=== PATIENT | female | born 1955 | race African-American/Black ===

== ENCOUNTER 2016-09-05 14:10 | Inpatient (IN) | payer MEDICARE, OTHER ==
[2016-09-05] VITALS (22 sets, daily range): BP systolic 77–122; BP diastolic 51–87; PULSE 79–128; RESP 14–21
[~2016-09-05] VITALS: Ht 167.6 cm; Wt 98.3 kg
[2016-09-05] MEDS ORDERED: ONDANSETRON 4 MG INJ IV STA ×2 (14:19→15:24)
[2016-09-05] MEDS ORDERED: SOD CHLORIDE 0.9% 1,000 ML IV ONE ×2 (14:30)
[2016-09-05 14:41] LABS: ADD SCAN DIFF NO
[2016-09-05 14:43] LABS: ABNORMAL IP MESSAGE 1; HEMATOCRIT 23.6 % (37.0-47.0); HEMOGLOBIN 7.6 g/dl (12.0-16.0); MEAN CORPUSCULAR HEMOGLOBIN 28.3 pg (29.0-33.0); MEAN CORPUSCULAR HGB CONC 32.2 g/dl (32.0-37.0); MEAN CORPUSCULAR VOLUME 87.7 fl (82.0-101.0); MEAN PLATELET VOLUME 11.9 fl (7.4-10.4); PLATELET COUNT 244 10^3/UL (140-415); RED BLOOD COUNT 2.69 10^6/ul (4.20-5.40); RED CELL DISTRIBUTION WIDTH 20.8 % (11.5-14.5); WHITE BLOOD COUNT 9.6 10^3/ul (4.8-10.8)
[2016-09-05 14:56] LABS: ALBUMIN 1.6 g/dl (3.3-4.9)
[2016-09-05 14:57] LABS: INR 1.16; PROTIME 14.8 Sec (12.2-14.2); PT RATIO 1.2
[2016-09-05 14:59] LABS: BILIRUBIN,INDIRECT 0.1 mg/dl (0-1.1); BILIRUBIN,TOTAL 0.1 mg/dl (0.2-1.3); CREATININE 1.45 mg/dl (0.44-1.00)
[2016-09-05 15:00] LABS: ALBUMIN/GLOBULIN RATIO 0.64; CALCIUM 7.2 mg/dl (8.4-10.2); TOTAL PROTEIN 4.1 g/dl (6.1-8.1)
[2016-09-05 15:11] LABS: TROPONIN-I 0.021 ng/ml (0.00-0.12)
--- NOTE | 2016-09-05 15:11 | RADRPT ---
PROCEDURE: XR Chest. CLINICAL INDICATION: Possible sepsis. TECHNIQUE: Single frontal view of the chest was obtained. COMPARISON: None FINDINGS: The soft tissues are normal. There are degenerative osteophytes in the thoracic spine. There is a Port-A-Cath device over the right chest wall with the catheter tip in the superior vena cava. No pn eumothorax is identified. The heart, cardiomediastinal silhouette and hilar structures are normal. The pulmonary vasculature is normal. There is a left-sided aorta. Lungs are clear but there is a po or inspiration. The costophrenic angles are normal. IMPRESSION: 1. There is no evidence of active cardiopulmonary disease. 2. A Port-A-Cath is identified projecting over the right chest wall. RPTAT:AAJJ Physician Deshawn Date Time Electronically viewed and signed by Nahum Knott Physician on 09/05/2016 15:10 OKSANA/
[2016-09-05 15:17] LABS: POTASSIUM 2.1 mmol/L (3.5-5.1)
[2016-09-05] MEDS ORDERED: METOCLOPRAMIDE 10 MG INJ IV ONE (15:30)
[2016-09-05] MEDS ORDERED: HYDR-902 PO (15:55)
[2016-09-05] MEDS ORDERED: DOCU-144 PO (15:56)
[2016-09-05] MEDS ORDERED: CYAN25009 PO (15:57)
[2016-09-05 15:58] LABS: LYMPHOCYTES # 0.3 10^3/ul (0.8-2.9); MYELOCYTES # 0.1; NEUTROPHIL # 7.4 10^3/ul (1.6-7.5)
[2016-09-05] MEDS ORDERED: NORepinephrine 8MG/250 ML (PMX 250 ML IV SCH ×2 (16:00→19:00)
[2016-09-05] MEDS ORDERED: PIPER-TAZO 3.375 GM IV (PMX) 100 ML IVPB ONE (16:00)
[2016-09-05] MEDS ORDERED: CHOL500010 PO (16:00)
[2016-09-05 16:02] LABS: BURR CELLS 1+; HYPOCHROMASIA 1+
[2016-09-05] MEDS: POTASSIUM CHLORIDE 50 ML IVPB SCH ×5 (16:12→23:44)
[2016-09-05] MEDS ORDERED: ALBUTEROL/IPRATROPIUM (NEB) 3 ML AMP HHN PRN (18:30)
[2016-09-05] MEDS ORDERED: MAGNESIUM HYDROXIDE 30ML CUP PO PRN (18:30)
[2016-09-05] MEDS ORDERED: NACL 0.9% 3 ML SYG IV SCH (18:30)
[2016-09-05] MEDS ORDERED: hydrALAzine 20 MG INJ IV PRN (18:30)
[2016-09-05] MEDS ORDERED: NITROGLYCERIN (SL) 0.4 MG TAB SL PRN (18:30)
[2016-09-05] MEDS ORDERED: NA PHOSPHATE/BIPHOS 133 ML ENEMA PR PRN (18:30)
[2016-09-05] MEDS ORDERED: DOCUSATE SODIUM 100 MG CAP PO PRN (18:30)
[2016-09-05] MEDS ORDERED: ONDANSETRON 4 MG INJ IV PRN (18:30)
[2016-09-05] MEDS ORDERED: VANCOMYCIN IV PER PHARMACY XX SCH (18:30)
[2016-09-05] MEDS ORDERED: HYDROCODONE/APAP (5/325) TAB PO PRN (18:30)
[2016-09-05] MEDS ORDERED: ACETAMINOPHEN 325 MG TAB PO PRN (18:30)
--- NOTE | 2016-09-05 18:36 | ERA ---
ER Documentation Chief Complaint Date/Time DATE: 09/05/16 TIME: 18:15 Chief Complaint Hypotension HPI 61-year-old female sent to the emergency room for generalized weakness, tiredness. Noted to be hypotensive by paramedics. She has had diarrhea nausea vomiting for the last several days. No blood in her diarrhea. She has a history of cervical cancer with metastasis for which she has had chemotherapy but not for several months, she most recently had radiation last month. Patient states that she currently just feels very weak and lightheaded. Denies any specific pain. ROS All systems reviewed and are negative except as per history of present illness. Medications Home Meds Reported Medications Cholecalciferol (Vitamin D3) 5,000 Unit Tablet, 5000 UNIT PO DAILY, TAB 09/05/16 Cyanocobalamin (Vitamin B-12) (Vitamin B12) 2,500 Mcg Tablet, 2500 MCG PO DAILY , TAB 09/05/16 Docusate Sodium* (Colace*) 100 Mg Capsule, 100 MG PO BID, #60 CAP 09/05/16 Hydrocodone/Acetaminophen ([place] 10-325 Tablet) 1 Each Tablet, 1 EACH PO Q6H Y for PAIN, TAB 09/05/16 Allergies Allergies: Coded Allergies: levofloxacin (Verified Allergy, Intermediate, face red and itching, ) PMhx/Soc History of Surgery: Yes (Tumor removal) Anesthesia Reaction: No Hx Neurological Disorder: No Hx Respiratory Disorders: No Hx Cardiac Disorders: No Hx Psychiatric Problems: No Hx Miscellaneous Medical Probl: Yes (Cervical Cancer) Hx Alcohol Use: No Hx Substance Use: No Hx Tobacco Use: No Smoking Status: Never smoker Physical Exam Vitals Vital Signs Date Time Temp Pulse Resp B/P Pulse Ox O2 Delivery O2 Flow Rate FiO2 09/05/16 17:30 92/80 09/05/16 17:00 77/47 09/05/16 16:30 77/50 09/05/16 16:14 98/48 09/05/16 16:00 73/50 09/05/16 15:30 81/59 09/05/16 15:23 106 13 90/63 100 Room Air 09/05/16 15:20 90/63 09/05/16 15:10 87/51 09/05/16 15:00 94/61 09/05/16 14:55 90/49 09/05/16 14:50 98/48 09/05/16 14:50 97.4 103 18 101/55 100 09/05/16 14:45 101/60 Physical Exam Const: [] Moderate distress, ill-appearing, thin Head: Atraumatic Eyes: Normal Conjunctiva ENT: Normal External Ears, Nose and Mouth. Neck: Full range of motion..~ No meningismus. Resp: Clear to auscultation bilaterally, mild tachypnea Cardio: Regular tachycardia no murmurs Abd: Soft, non tender, non distended. Normal bowel sounds Skin: No petechiae or rashes Back: No midline or flank tenderness Ext: No cyanosis, or edema, distal pulses intact, 5 out of 5 strength all extremities, no focal weakness Neur: Awake and alert and oriented 3, cranial nerves II through XII intact, cerebellar finger to nose intact Psych: Normal Mood and Affect Result Diagram: 09/05/16 1425 09/05/16 1425 Results 24 hrs Laboratory Tests Test 09/05/16 14:25 09/05/16 17:15 White Blood Count 9.610^3/ul Red Blood Count 2.6910^6/ul Hemoglobin 7.6g/dl Hematocrit 23.6% Mean Corpuscular Volume 87.7fl Mean Corpuscular Hemoglobin 28.3pg Mean Corpuscular Hemoglobin Concent 32.2g/dl Red Cell Distribution Width 20.8% Platelet Count 06231^3/UL Mean Platelet Volume 11.9fl Neutrophils % 77.0% Band Neutrophils % 19.0% Lymphocytes % 3.0% Eosinophils % % Myelocytes % 1.0% Nucleated Red Blood Cells % 2.0/100WBC Neutrophils # 7.410^3/ul Lymphocytes # 0.310^3/ul Eosinophils # 10^3/ul Myelocytes # 0.1 Hypochromasia 1+ Prothrombin Time 14.8Sec Prothrombin Time Ratio 1.2 INR International Normalized Ratio 1.16 Activated Partial Thromboplast Time 35.0Sec Sodium Level 134mmol/L Potassium Level 2.1mmol/L Chloride Level 101mmol/L Carbon Dioxide Level 19mmol/L Anion Gap 16 Blood Urea Nitrogen 61mg/dl Creatinine 1.45mg/dl Glucose Level 121mg/dl Lactic Acid Level 5.2mmol/L 5.7mmol/L Calcium Level 7.2mg/dl Total Bilirubin 0.1mg/dl Direct Bilirubin 0.00mg/dl Indirect Bilirubin 0.1mg/dl Aspartate Amino Transf (AST/SGOT) 25IU/L Alanine Aminotransferase (ALT/SGPT) 61IU/L Alkaline Phosphatase 164IU/L Troponin I 0.021ng/ml Total Protein 4.1g/dl Albumin 1.6g/dl Globulin 2.50g/dl Albumin/Globulin Ratio 0.64 Current Medications Medications (Trade) Dose Ordered Sig/Bev Route PRN Reason Start Time Stop Time Status Last Admin Dose Admin Sodium Chloride 1,000 ml @ 1,000 mls/hr Q1H ONCE IV 09/05/16 14:30 09/05/16 15:29 DC 09/05/16 14:51 Sodium Chloride (NS) 1,000 ml @ 1,000 mls/hr Q1H ONCE IV 09/05/16 14:30 09/05/16 15:29 DC 09/05/16 14:55 Ondansetron HCl 4 mg 4 mg ONCE STAT IV 09/05/16 14:19 09/05/16 14:21 DC 09/05/16 15:26 Potassium Chloride (KCl 10 MEQ/50 ML SW) 50 ml @ 50 mls/hr Q1H IVPB 09/05/16 16:00 09/05/16 18:59 09/05/16 17:53 Ondansetron HCl (Zofran Inj) 4 mg ONCE STAT IV 09/05/16 15:24 09/05/16 15:44 DC 09/05/16 15:47 Metoclopramide HCl 10 mg 10 mg ONCE ONCE IV 09/05/16 15:30 09/05/16 15:44 DC 09/05/16 15:49 Piperacillin Sod/ Tazobactam Sod 100 ml @ 200 mls/hr ONCE ONCE IVPB 09/05/16 16:00 09/05/16 16:29 DC 09/05/16 15:47 Norepinephrine (Levophed) 250 ml @ 1.875 mls/ hr TITRATE IV 09/05/16 16:00 09/05/16 16:41 IV Flush (NS 3 ml) 3 ml PER PROTOCOL IV 09/05/16 18:30 UNV Ondansetron HCl (Zofran Inj) 4 mg Q6H PRN IV NAUSEA AND/OR VOMITING 09/05/16 18:30 UNV Acetaminophen (Tylenol Tab) 650 mg Q6H PRN PO PAIN LEVEL 1-3 OR FEVER 09/05/16 18:30 UNV Acetaminophen/ Hydrocodone Bitart ([place] (5/325)) 1 tab Q6H PRN PO MODERATE PAIN LEVEL 4-6 09/05/16 18:30 UNV Morphine Sulfate (morphine) 2 mg Q4H PRN IV SEVERE PAIN LEVEL 7-10 09/05/16 18:30 UNV Docusate Sodium (Colace) 100 mg Q12H PRN PO CONSTIPATION 09/05/16 18:30 UNV Magnesium Hydroxide (Milk Of Mag) 30 ml DAILY PRN PO CONSTIPATION 09/05/16 18:30 UNV Sodium Biphosphate/ Sodium Phosphate (Fleet Enema) 133 ml DAILY PRN CA CONSTIPATION 09/05/16 18:30 UNV Lorazepam 0.5 mg 0.5 mg Q6H PRN IV ANXIETY 09/05/16 18:30 UNV Sodium Chloride (NS) 1,000 ml @ 100 mls/hr Q10H IV 09/05/16 18:01 UNV Albuterol/ Ipratropium 3 ml 3 ml Q4H RESP THERAPY PRN HHN SHORTNESS OF BREATH 09/05/16 18:30 UNV Piperacillin Sod/ Tazobactam Sod (Zosyn 3.375gm/ 100 ml (Pmx)) 100 ml @ 200 mls/hr Q6 IVPB 09/06/16 00:00 UNV Vancomycin HCl (Vanco Iv Per Pharmacy) VANCOMYCIN PER PHARMACY NOTE XX 09/05/16 18:30 UNV Hydralazine HCl (Apresoline) 10 mg Q6H PRN IV ELEVATED BLOOD PRESSURE 09/05/16 18:30 UNV Nitroglycerin (Nitroglycerin (Sl Tab) 0.4 Mg) 1 tab Q5M PRN SL ANGINA 09/05/16 18:30 UNV Insulin Aspart (Novolog Insulin Pen) NOVOLOG *MILD* ALGORI... Q4 SC 09/05/16 21:00 UNV Miscellaneous Information (* Miscellaneous Pharmacy Order) HYPOGLYCEMIA PROTOCOL w... ONCE ONCE XX 09/05/16 18:30 09/05/16 18:31 UNV Miscellaneous Information (* Miscellaneous Pharmacy Order) Discontinue Glyburide, Glipizide,... ONCE ONCE XX 09/05/16 18:30 09/05/16 18:31 UNV Miscellaneous Information Discontinue all previ... ONCE ONCE XX 09/05/16 18:30 09/05/16 18:31 UNV Potassium Chloride (KCl 10 MEQ/50 ML SW) 50 ml @ 50 mls/hr K PROTOCOL PRN IVPB PENDING LAB VALUE 09/05/16 18:30 UNV Miscellaneous Information 2,500 mcg DAILY PO 09/06/16 09:00 UNV Procedures/MDM Severe dehydration and volume depletion with sepsis. Source of a bacterial sepsis is not currently clear as patient may have sepsis secondary to her viral intestinal infection. Was hypotensive. Initially given 2 L normal saline which improved her clinical condition as well as her blood pressure temporarily. Blood pressure then began dropping again. She was started on levo fed. Patient's daughter arrived. She brought labs with her and the patient's hemoglobin was 9.3 a month and a half ago. She has received transfusions before has no history of GI bleeding. Patient also had nausea and was given 8 mg of Zofran which helped with the nausea. Her potassium is very low and IV potassium repletion was begun in the emergency room. EKG was low voltage but showed no signs of U waves or significantly prolonged QT. Did give her an additional liter of fluid for increasing lactic acid. I ordered 2 units of blood to be transfusion which will likely help with the blood pressure. I spoke with Dr. Briseno who will be admitting the patient to the ICU. EKG interpretation: Sinus tachycardia rate of 107, low voltage, left axis deviation, no ST or T-wave changes concerning for acute ischemia, mildly prolonged QT of 467 clinical research monitor interpretation: Sinus tachycardia with occasional normal sinus rhythm. No other arrhythmias Chest x-ray interpretation: I see no acute process, no infiltrate, no pulmonary edema, no fractures, no pneumothorax Perfusion assessment for septic shock: Time 1611 BP 98/48, HR 102 RR 20 Temp 97.4 F Oxygen sat 97% Skin: Pale, no mottling Pulses: Distal pulses palpable Lungs: Clear lungs with no rails Cardiac: Mild tachycardia without murmurs Critical care time 48 minutes excluding billable procedures: This includes management of sepsis with very low blood pressure, careful fluid administration , blood products administration, early antibiotic administration, multiple visits to bedside to reassess status, discussion with patient, family, admitting doctor, chart review. Ultrasound-guided IV insertion: Indication: Staff unable to obtain IV access and hypotensive patient requiring fluid resuscitation: Left upper arm was cleaned with alcohol. Ultrasound guidance was used easily introduced an 18- gauge extended angiocatheter in the left basilic vein. Good blood flow, flushed easily. Patient tolerated procedure well no complications. Images saved in patient chart. Departure Diagnosis: Primary Impression: Septic shock Additional Impressions: Dehydration Renal insufficiency Symptomatic anemia Nausea vomiting and diarrhea Hypokalemia Condition: Critical MANI PERRY DO September 05, 2016 18:28
[2016-09-05] MEDS ORDERED: DEXTROSE 50% 50 ML SYRINGE IV PRN ×2 (19:00)
[2016-09-05] MEDS ORDERED: GLUCOSE GEL 15 GRAM TUBE PO PRN ×2 (19:00)
[2016-09-05] MEDS ORDERED: GLUCOSE GEL 15 GRAM TUBE BUCCAL PRN (19:00)
[2016-09-05] MEDS ORDERED: GLUCAGON 1 MG INJ IM PRN (19:00)
[2016-09-05] MEDS: SOD CHLORIDE 0.9% 1,000 ML IV SCH (19:03)
[2016-09-05] MEDS ORDERED: VANCOMYCIN 1.25 GM in SOD CHLORIDE 0.9% 250 ML IVPB ONE (20:00)
--- NOTE | 2016-09-05 20:24 | HP ---
DATE OF ADMISSION: 09/05/2016 CHIEF COMPLAINT: Weakness and low blood pressure. HISTORY OF PRESENT ILLNESS: A 61-year-old female, past medical history of cervical cancer with dist ant metastasis, last radiation about 1 month ago apparently at [facility], who has been having wea kness symptoms that began this morning. The family became concerned and called EMS, and the EMS not ed that the patient was hypotensive as well. She has also been having some vomiting symptoms, some mild nausea symptoms, nonbilious, nonbloody, and also apparently some diarrhea. The patient does co mplain of some lightheadedness but denies any chest pain or shortness of breath or abdominal pain. No fevers or chills. No dysuria. When she came in today, she was found with elevated lactic acid l evels of 5.2. She was severely hypokalemic. Her potassium was 2.1, and she had a hemoglobin of 7.6 as well and was ordered for 2 units of PRBC transfusion. Also received IV fluids and potassium in the ER. The patient says that she had nephrostomy tubes placed in [place] in 2013. PAST MEDICAL HISTORY: Stated above. ALLERGIES: LEVAQUIN. HOME MEDICINES: 1. [place] 10/325 q.6 p.r.n. 2. Colace 100 mg b.i.d. 3. Vitamin D3 5000 units daily. 4. Vitamin B12 2500 mcg daily. PAST SURGICAL HISTORY: Again, she has had bilateral nephrostomy tubes placed, apparently in 2013. Apparently she has also had some kind of surgery for tumor removal in the past, although that is non specific. SOCIAL HISTORY: Negative for smoking, drinking, IV drug abuse. FAMILY HISTORY: Unknown at this time. VITAL SIGNS: T-max 97.4, pulse 103 to 106, respirations 13 to 18, blood pressure is 77 to 101 systo lic over 47 to 55 diastolic, saturating 100% on room air. PHYSICAL EXAMINATION: GENERAL: The patient is lying in bed, quite lethargic, able to answer questions and occasionally al ert at times. HEENT: Pupils are equal, round, react to light. Extraocular muscles intact. NECK: Supple. No thyromegaly. LUNGS: Clear to auscultation bilaterally. CARDIOVASCULAR: S1 and S2 heard. Tachycardic heart rate. No rubs or gallops. ABDOMEN: Soft, nontender, nondistended. Normal bowel sounds. No rebound or guarding. There are b ilateral nephrostomy tubes in the flanks. MUSCULOSKELETAL: No lower extremity edema bilaterally. NEUROLOGIC: No focal deficits. LABORATORIES: WBC 9.5, hemoglobin 7.6, hematocrit 23.6, platelets 244. Sodium 134, potassium 2.1, chloride 101, CO2 19, BUN 61, creatinine 1.45, glucose 121. IMAGING: She had chest x-ray performed today, shows no evidence of any active cardiopulmonary disea se. There is Port-A-Cath identified projecting over the right chest wall. ASSESSMENT AND PLAN: A 61-year-old female with prior history of cervical cancer with metastasis, la st radiation 1 month ago, who presents with weakness and anemia, severe hypokalemia and lactic acido sis. 1. Signs of sepsis given the lactic acid and the hypotension. Will admit the patient to ICU given the severity of her illness. She may require pressor support and also aggressive IV fluid rehydrati on. Will replete her low potassium levels. Will get hematology/oncology consult as well. Trend th e lactic acid as well. 2. Anemia. Unclear source. Will check occult stool test and get a GI consult as well. Could be s econdary to GI blood losses, although there are no signs of any upper or lower GI bleeding. Also co uld be related to the cancer as well. Also check TSH, A1c and lipid panel. 3. History of bilateral nephrostomy tubes with some mild renal insufficiency. Continue to monitor for now. Aggressive IV fluid rehydration. If there are any abnormalities, may need to get urology consult. Nephrostomy tube and bags appear to be draining well. 4. Gastrointestinal prophylaxis. She will be on H2 chance. 5. Deep venous thrombosis prophylaxis. Will put her on SCDs. 6. Consider PT and OT consult as well. Dictated By: ONEIDA MCALLISTER Conf#: [id number] DID#: [id number]
[2016-09-05 20:56] LABS: CALCIUM 6.7 mg/dl (8.4-10.2); CREATININE 1.24 mg/dl (0.44-1.00); MAGNESIUM 1.9 mg/dl (1.7-2.5)
[2016-09-05] MEDS: INSULIN ASPART [NOVOLOG] 3 ML PEN SC SCH (21:00)
[2016-09-05 21:08] LABS: POTASSIUM 2.6 mmol/L (3.5-5.1)
[2016-09-05] MEDS: FAMOTIDINE 20 MG INJ IV SCH (21:40)
[2016-09-05] MEDS: PIPER-TAZO 2.25 GM (PMX) 50 ML IVPB SCH (23:43)
[2016-09-06] VITALS (93 sets, daily range): BP systolic 62–127; BP diastolic 50–94; PULSE 76–154; RESP 11–34
[2016-09-06] MEDS: INSULIN ASPART [NOVOLOG] 3 ML PEN SC SCH ×6 (01:00→20:48)
[2016-09-06] MEDS: POTASSIUM CHLORIDE 50 ML IVPB SCH (02:00)
[2016-09-06] MEDS: SOD CHLORIDE 0.9% 1,000 ML IV SCH ×2 (05:00→09:27)
[2016-09-06 06:08] LABS: ADD SCAN DIFF NO
[2016-09-06] MEDS: PIPER-TAZO 2.25 GM (PMX) 50 ML IVPB SCH ×4 (06:13→23:38)
[2016-09-06 06:44] LABS: POTASSIUM 4.1 mmol/L (3.5-5.1)
[2016-09-06 06:47] LABS: CREATININE 1.1 mg/dl (0.44-1.00)
[2016-09-06 06:48] LABS: CALCIUM 7.1 mg/dl (8.4-10.2); MAGNESIUM 1.8 mg/dl (1.7-2.5); PHOSPHORUS 3.3 mg/dl (2.5-4.9)
[2016-09-06 07:37] LABS: THYROID STIMULATING HORMONE 7.92 MIU/L (0.465-4.680)
[2016-09-06 08:56] LABS: ABNORMAL IP MESSAGE 1; MEAN CORPUSCULAR HEMOGLOBIN 28.4 pg (29.0-33.0); MEAN CORPUSCULAR HGB CONC 32.4 g/dl (32.0-37.0); MEAN CORPUSCULAR VOLUME 87.9 fl (82.0-101.0); MEAN PLATELET VOLUME 12.1 fl (7.4-10.4); PLATELET COUNT 231 10^3/UL (140-415); RED BLOOD COUNT 3.87 10^6/ul (4.20-5.40); RED CELL DISTRIBUTION WIDTH 18.9 % (11.5-14.5); WHITE BLOOD COUNT 13.8 10^3/ul (4.8-10.8)
--- NOTE | 2016-09-06 09:36 | CONS ---
Date/Time of Note Date/Time of Note DATE: 09/06/16 TIME: 09:29 Assessment/Plan Assessment/Plan Additional Assessment/Plan Assessment * Anemia controlled * Diarrhea R/O infectious vs inflammatory vs radiation induced * Sepsis * History of cervical cancer * S/P nephrostomy tube bilateral Plan * continue present management * colonoscopy risk and benefit explained to patient and relative agreed with planned procedure * stool for occult blood Consultation Date/Type/Reason Admit Date/Time September 05, 2016 at 16:23 Date of Consultation: September 06, 2016 Type of Consultation: Gastroenterology Reason for Consultation Anemia/diarrhea Referring Provider: ONEIDA COLEMAN Hx of Present Illness 61 year old female with past medical history cervical cancer with metastasis who underwent radiation at [facility] last month came to emergency room with chief complaint of body malaise,and weakness.Family called EMS ,was noted to be hypotensive.She claims to have n diarrhea for 1 month.Diarrhea was occurring daily described as watery stool,no blood,nor mucus with associated occasional vomiting described as non bilious with no blood.She denies any history of travel ,abdominal pain ,hematemesis,hematochezia nor fever.She claims that been feeling weak ,noted to be hypotensive by EMS . Emergency room course,patient was hypotensive a bolus of NS was given ,started omn pressors.Initial hemoglobin 7.7 transfused 2 units of PRBC. presently ,patient no episode of diarrhea ,abdominal pain but patient is weak and hypotensive on pressors Past Medical History Medical History: other (cervical cancer,bowel obstruction,brain tumor) Past Surgical History Past Surgical Hx: other (neprhostomy tube bilateral,brain surgery) Family History Significant Family History: no pertinent family hx Social History Alcohol Use: rarely Smoking Status: Never smoker Exam/Review of Systems Vital Signs Vitals Vital Signs Date Time Temp Pulse Resp B/P Pulse Ox O2 Delivery O2 Flow Rate FiO2 09/06/16 08:00 97 09/06/16 06:00 19 85/71 09/06/16 05:45 100 09/06/16 05:00 Room Air 09/06/16 04:15 97.2 Intake and Output 09/05/16 09/05/16 09/06/16 15:00 23:00 07:00 Intake Total 687.82 ml 1378.95 ml Output Total 275 ml Balance 687.82 ml 1103.95 ml Exam Constitutional: alert, frail Head: atraumatic, normocephalic Eyes: nl conjunctiva, nl sclera Neck: non-tender, supple Respiratory: clear to auscultation, diminished breath sounds, normal air movement Cardiovascular: nl pulses, regular rate and rhythm Gastrointestinal: bowel sounds, non-tender, soft, No rebound or guarding Musculoskeletal: nl extremities to inspection, nl gait and stance Extremities: normal pulses Neurological: nl speech, nl strength Results Result Diagram: 09/06/16 0550 09/06/16 0550 Results 24 hrs Laboratory Tests Test 09/05/16 14:25 09/05/16 17:15 09/05/16 18:50 09/05/16 20:15 White Blood Count 9.6 Red Blood Count 2.69 L Hemoglobin 7.6 L Hematocrit 23.6 L Mean Corpuscular Volume 87.7 Mean Corpuscular Hemoglobin 28.3 L Mean Corpuscular Hemoglobin Concent 32.2 Red Cell Distribution Width 20.8 H Platelet Count 244 Mean Platelet Volume 11.9 H Neutrophils % 77.0 Band Neutrophils % 19.0 H Lymphocytes % 3.0 L Eosinophils % Myelocytes % 1.0 H Nucleated Red Blood Cells % 2.0 H Neutrophils # 7.4 Lymphocytes # 0.3 L Eosinophils # Myelocytes # 0.1 Hypochromasia 1+ Prothrombin Time 14.8 H Prothrombin Time Ratio 1.2 INR International Normalized Ratio 1.16 Activated Partial Thromboplast Time 35.0 Sodium Level 134 L 134 L Potassium Level 2.1 *L 2.6 *L Chloride Level 101 107 Carbon Dioxide Level 19 L 23 Anion Gap 16 7 #L Blood Urea Nitrogen 61 H 56 H Creatinine 1.45 H 1.24 H Glucose Level 121 92 Lactic Acid Level 5.2 *H 5.7 *H 2.6 H Calcium Level 7.2 L 6.7 L Total Bilirubin 0.1 L Direct Bilirubin 0.00 Indirect Bilirubin 0.1 Aspartate Amino Transf (AST/SGOT) 25 Alanine Aminotransferase (ALT/SGPT) 61 Alkaline Phosphatase 164 H Troponin I 0.021 Total Protein 4.1 L Albumin 1.6 L Globulin 2.50 Albumin/Globulin Ratio 0.64 Phosphorus Level 3.4 Magnesium Level 1.9 Free Thyroxine 1.48 Test 09/05/16 22:02 09/06/16 00:41 09/06/16 05:50 09/06/16 06:10 Bedside Glucose 110 108 Lactic Acid Level 1.5 2.1 White Blood Count 13.8 #H Red Blood Count 3.87 #L Hemoglobin 11.0 #L Hematocrit 34.0 #L Mean Corpuscular Volume 87.9 Mean Corpuscular Hemoglobin 28.4 L Mean Corpuscular Hemoglobin Concent 32.4 Red Cell Distribution Width 18.9 H Platelet Count 231 Mean Platelet Volume 12.1 H Neutrophils % Eosinophils % Neutrophils # Eosinophils # Sodium Level 140 Potassium Level 4.1 Chloride Level 110 Carbon Dioxide Level 17 L Anion Gap 17 #H Blood Urea Nitrogen 54 H Creatinine 1.10 H Glucose Level 96 Calcium Level 7.1 L Phosphorus Level 3.3 Magnesium Level 1.8 Triglycerides Level 316 H Cholesterol Level 70 L LDL Cholesterol, Calculated HDL Cholesterol 35 Cholesterol/HDL Ratio 2.0 Thyroid Stimulating Hormone (TSH) 7.920 H Test 09/06/16 09:09 Bedside Glucose 123 Medications Medications Current Medications Ondansetron HCl (Zofran Inj) 4 mg Q6H PRN IV NAUSEA AND/OR VOMITING; Start at 18:30 Acetaminophen (Tylenol Tab) 650 mg Q6H PRN PO PAIN LEVEL 1-3 OR FEVER; Start at 18:30 Acetaminophen/ Hydrocodone Bitart ([place] (5/325)) 1 tab Q6H PRN PO MODERATE PAIN LEVEL 4-6; Start 09/05/16 at 18:30 Morphine Sulfate (morphine) 2 mg Q4H PRN IV SEVERE PAIN LEVEL 7-10; Start 09/05 at 18:30 Docusate Sodium (Colace) 100 mg Q12H PRN PO CONSTIPATION; Start 09/05/16 at 18: 30 Magnesium Hydroxide (Milk Of Mag) 30 ml DAILY PRN PO CONSTIPATION; Start at 18:30 Sodium Biphosphate/ Sodium Phosphate (Fleet Enema) 133 ml DAILY PRN SC CONSTIPATION; Start 09/05/16 at 18:30 Lorazepam 0.5 mg 0.5 mg Q6H PRN IV ANXIETY; Start 09/05/16 at 18:30 Sodium Chloride 1,000 ml @ 100 mls/hr Q10H IV Last administered on 09/06/16t 09:27; Admin Dose 100 MLS/HR; Start 09/05/16 at 19:00 Piperacillin Sod/ Tazobactam Sod (Zosyn 2.25gm/ 50ml (Pmx)) 50 ml @ 100 mls/hr Q6 IVPB Last administered on 09/06/16 06:13; Admin Dose 100 MLS/HR; Start at 00:00 Vancomycin HCl (Vanco Iv Per Pharmacy) VANCOMYCIN PER PHARMACY NOTE XX ; Start 09/05/16 at 18:30 Hydralazine HCl (Apresoline) 10 mg Q6H PRN IV ELEVATED BLOOD PRESSURE; Start at 18:30 Nitroglycerin (Nitroglycerin (Sl Tab) 0.4 Mg) 1 tab Q5M PRN SL ANGINA; Start at 18:30 Insulin Aspart (Novolog Insulin Pen) NOVOLOG *MILD* ALGORI... Q4 SC ; Start at 21:00 Cyanocobalamin (Vitamin B12) 2,500 mcg DAILY PO ; Start 09/06/16 at 09:00 Miscellaneous Information 1 ea NOTE XX ; Start 09/05/16 at 19:00 Glucose (Glutose) 15 gm Q15M PRN PO DECREASED GLUCOSE; Start 09/05/16 at 19:00 Glucose (Glutose) 22.5 gm Q15M PRN PO DECREASED GLUCOSE; Start 09/05/16 at 19: 00 Dextrose (D50w Syringe) 25 ml Q15M PRN IV DECREASED GLUCOSE; Start 09/05/16 at 19:00 Dextrose (D50w Syringe) 50 ml Q15M PRN IV DECREASED GLUCOSE; Start 09/05/16 at 19:00 Glucagon (Glucagen) 1 mg Q15M PRN IM DECREASED GLUCOSE; Start 09/05/16 at 19:00 Glucose (Glutose) 15 gm Q15M PRN BUCCAL DECREASED GLUCOSE; Start 09/05/16 at 19 :00 Famotidine 20 mg 20 mg DAILY IV Last administered on 09/05/16 21:40; Admin Dose 20 MG; Start 09/05/16 at 19:00 Norepinephrine 16 mg/Dextrose 500 ml @ 0 mls/hr TITRATE IV Last administered on 09/06/16 05:13; Admin Dose 56.25 MLS/HR; Start 09/06/16 at 07:00 Vancomycin HCl/ Sodium Chloride (Vancocin/NS) 150 ml @ 75 mls/hr Q24H IVPB ; Start 09/06/16 at 20:00 SAKSHI MENA MD September 06, 2016 09:36
[2016-09-06] MEDS: CYANOCOBALAMIN 500 MCG TAB PO SCH (09:37)
[2016-09-06] MEDS: FAMOTIDINE 20 MG INJ IV SCH (09:37)
--- NOTE | 2016-09-06 10:20 | PN ---
Date/Time of Note Date/Time of Note DATE: 09/06/16 TIME: 10:14 Assessment/Plan VTE Prophylaxis VTE Prophylaxis Intervention: SCD's Lines/Catheters IV [facility]ter Type (from [facility]): Peripheral IV Urinary Cath still in place: No Assessment/Plan Chief Complaint/Hosp Course ASSESSMENT AND PLAN: 61-year-old female with prior history of cervical cancer with metastasis, last radiation 1 month ago, who presents with weakness and anemia, severe hypokalemia and lactic acidosis. 1. Sepsis/shock - present given the lactic acid and the hypotension. - continue IV fluid rehydration. F/u Heme/Onc rec's - f/u hematology/oncology consult rec's - Trend the lactic acid as well (nL now) - broad spectrum abx, f/u UA results. - F/u PT and OT consult as well. 2. Anemia. Unclear source. Could be secondary to GI blood losses, although there are no signs of any upper or lower GI bleeding. Also related to pt's cancer possibly. s/p pRBC transfusion. - f/u occult stool test, GI consult rec's as well, f/u TSH, A1c and lipid panel. - for possible colonoscopy 3. History of bilateral nephrostomy tubes with some mild renal insufficiency. Nephrostomy tube and bags appear to be draining well. - Continue to monitor for now. Aggressive IV fluid rehydration. - If there are any abnormalities, may need to get urology consult. 4. Gastrointestinal prophylaxis -H2 chance. 5. Deep venous thrombosis prophylaxis - SCDs. 6. cervical ca w/ mets - apparently last radiation 1 mth ago at [facility] - will f/u Heme/Onc rec's Critical care time spent with care today = 40 min. Problems: Subjective 24 Hr Interval Summary Free Text/Dictation Pt states she feels"better", denies pain. Seen by GI team, had pRBC transfusion yesterday. Requiring pressor support. Exam/Review of Systems Vital Signs Vitals Vital Signs Date Time Temp Pulse Resp B/P Pulse Ox O2 Delivery O2 Flow Rate FiO2 09/06/16 08:00 97 09/06/16 06:00 19 85/71 09/06/16 05:45 100 09/06/16 05:00 Room Air 09/06/16 04:15 97.2 Intake and Output 09/05/16 09/05/16 09/06/16 15:00 23:00 07:00 Intake Total 687.82 ml 1378.95 ml Output Total 275 ml Balance 687.82 ml 1103.95 ml Exam GENERAL: The patient is lying in bed, still lethargic, able to answer questions HEENT: Pupils are equal, round, react to light. Extraocular muscles intact. NECK: Supple. No thyromegaly. LUNGS: Clear to auscultation bilaterally. CARDIOVASCULAR: S1 and S2 heard. Tachycardic heart rate. No rubs or gallops. ABDOMEN: Soft, nontender, nondistended. Normal bowel sounds. No rebound or guarding. There are bilateral nephrostomy tubes in the flanks. MUSCULOSKELETAL: No lower extremity edema bilaterally. NEUROLOGIC: No focal deficits. Results Result Diagram: 09/06/16 0550 09/06/16 0550 Results 24 hrs Laboratory Tests Test 09/05/16 14:25 09/05/16 17:15 09/05/16 18:50 09/05/16 20:15 White Blood Count 9.6 Red Blood Count 2.69 L Hemoglobin 7.6 L Hematocrit 23.6 L Mean Corpuscular Volume 87.7 Mean Corpuscular Hemoglobin 28.3 L Mean Corpuscular Hemoglobin Concent 32.2 Red Cell Distribution Width 20.8 H Platelet Count 244 Mean Platelet Volume 11.9 H Neutrophils % 77.0 Band Neutrophils % 19.0 H Lymphocytes % 3.0 L Eosinophils % Myelocytes % 1.0 H Nucleated Red Blood Cells % 2.0 H Neutrophils # 7.4 Lymphocytes # 0.3 L Eosinophils # Myelocytes # 0.1 Hypochromasia 1+ Prothrombin Time 14.8 H Prothrombin Time Ratio 1.2 INR International Normalized Ratio 1.16 Activated Partial Thromboplast Time 35.0 Sodium Level 134 L 134 L Potassium Level 2.1 *L 2.6 *L Chloride Level 101 107 Carbon Dioxide Level 19 L 23 Anion Gap 16 7 #L Blood Urea Nitrogen 61 H 56 H Creatinine 1.45 H 1.24 H Glucose Level 121 92 Lactic Acid Level 5.2 *H 5.7 *H 2.6 H Calcium Level 7.2 L 6.7 L Total Bilirubin 0.1 L Direct Bilirubin 0.00 Indirect Bilirubin 0.1 Aspartate Amino Transf (AST/SGOT) 25 Alanine Aminotransferase (ALT/SGPT) 61 Alkaline Phosphatase 164 H Troponin I 0.021 Total Protein 4.1 L Albumin 1.6 L Globulin 2.50 Albumin/Globulin Ratio 0.64 Phosphorus Level 3.4 Magnesium Level 1.9 Free Thyroxine 1.48 Test 09/05/16 22:02 09/06/16 00:41 09/06/16 05:50 09/06/16 06:10 Bedside Glucose 110 108 Lactic Acid Level 1.5 2.1 White Blood Count 13.8 #H Red Blood Count 3.87 #L Hemoglobin 11.0 #L Hematocrit 34.0 #L Mean Corpuscular Volume 87.9 Mean Corpuscular Hemoglobin 28.4 L Mean Corpuscular Hemoglobin Concent 32.4 Red Cell Distribution Width 18.9 H Platelet Count 231 Mean Platelet Volume 12.1 H Neutrophils % Eosinophils % Neutrophils # Eosinophils # Sodium Level 140 Potassium Level 4.1 Chloride Level 110 Carbon Dioxide Level 17 L Anion Gap 17 #H Blood Urea Nitrogen 54 H Creatinine 1.10 H Glucose Level 96 Calcium Level 7.1 L Phosphorus Level 3.3 Magnesium Level 1.8 Triglycerides Level 316 H Cholesterol Level 70 L LDL Cholesterol, Calculated HDL Cholesterol 35 Cholesterol/HDL Ratio 2.0 Thyroid Stimulating Hormone (TSH) 7.920 H Test 09/06/16 09:09 Bedside Glucose 123 Medications Medications Current Medications Acetaminophen (Tylenol Tab) 650 mg Q6H PRN PO PAIN LEVEL 1-3 OR FEVER; Start at 18:30 Acetaminophen/ Hydrocodone Bitart ([place] (5/325)) 1 tab Q6H PRN PO MODERATE PAIN LEVEL 4-6; Start 09/05/16 at 18:30 Morphine Sulfate (morphine) 2 mg Q4H PRN IV SEVERE PAIN LEVEL 7-10; Start 09/05 at 18:30 Docusate Sodium (Colace) 100 mg Q12H PRN PO CONSTIPATION; Start 09/05/16 at 18: 30 Magnesium Hydroxide (Milk Of Mag) 30 ml DAILY PRN PO CONSTIPATION; Start at 18:30 Sodium Biphosphate/ Sodium Phosphate (Fleet Enema) 133 ml DAILY PRN [place] CONSTIPATION; Start 09/05/16 at 18:30 Lorazepam 0.5 mg 0.5 mg Q6H PRN IV ANXIETY; Start 09/05/16 at 18:30 Sodium Chloride 1,000 ml @ 100 mls/hr Q10H IV Last administered on 09/06/16 09:27; Admin Dose 100 MLS/HR; Start 09/05/16 at 19:00 Piperacillin Sod/ Tazobactam Sod (Zosyn 2.25gm/ 50ml (Pmx)) 50 ml @ 100 mls/hr Q6 IVPB Last administered on 09/06/16 06:13; Admin Dose 100 MLS/HR; Start at 00:00 Vancomycin HCl (Vanco Iv Per Pharmacy) VANCOMYCIN PER PHARMACY NOTE XX ; Start 09/05/16 at 18:30 Hydralazine HCl (Apresoline) 10 mg Q6H PRN IV ELEVATED BLOOD PRESSURE; Start at 18:30 Nitroglycerin (Nitroglycerin (Sl Tab) 0.4 Mg) 1 tab Q5M PRN SL ANGINA; Start at 18:30 Insulin Aspart (Novolog Insulin Pen) NOVOLOG *MILD* ALGORI... Q4 SC ; Start at 21:00 Cyanocobalamin (Vitamin B12) 2,500 mcg DAILY PO Last administered on 09/06/16 09:37; Admin Dose 2,500 MCG; Start 09/06/16 at 09:00 Miscellaneous Information 1 ea NOTE XX ; Start 09/05/16 at 19:00 Glucose (Glutose) 15 gm Q15M PRN PO DECREASED GLUCOSE; Start 09/05/16 at 19:00 Glucose (Glutose) 22.5 gm Q15M PRN PO DECREASED GLUCOSE; Start 09/05/16 at 19: 00 Dextrose (D50w Syringe) 25 ml Q15M PRN IV DECREASED GLUCOSE; Start 09/05/16 at 19:00 Dextrose (D50w Syringe) 50 ml Q15M PRN IV DECREASED GLUCOSE; Start 09/05/16 at 19:00 Glucagon (Glucagen) 1 mg Q15M PRN IM DECREASED GLUCOSE; Start 09/05/16 at 19:00 Glucose (Glutose) 15 gm Q15M PRN BUCCAL DECREASED GLUCOSE; Start 09/05/16 at 19 :00 Famotidine 20 mg 20 mg DAILY IV Last administered on 09/06/16 09:37; Admin Dose 20 MG; Start 09/05/16 at 19:00 Norepinephrine 16 mg/Dextrose 500 ml @ 0 mls/hr TITRATE IV Last administered on 09/06/16t 05:13; Admin Dose 56.25 MLS/HR; Start 09/06/16 at 07:00 Vancomycin HCl/ Sodium Chloride (Vancocin/NS) 150 ml @ 75 mls/hr Q24H IVPB ; Start 09/06/16 at 20:00 Ondansetron HCl (Zofran Inj) 8 mg Q6H PRN IV NAUSEA AND/OR VOMITING; Start at 12:30; Status UNV Trimethobenzamide HCl (Tigan) 200 mg Q6H PRN IM NAUSEA AND/OR VOMITING; Start 09/06/16 at 10:30 ONEIDA COLEMAN September 06, 2016 10:20
[2016-09-06] MEDS ORDERED: ONDANSETRON INJ 8 MG in SOD CHLORIDE 0.9% 50 ML IV PRN (10:30)
[2016-09-06] MEDS ORDERED: TRIMETHOBENZAMIDE 100 MG/ML VIAL IM PRN (10:30)
[2016-09-06 11:23] LABS: LYMPHOCYTES # 0.7 10^3/ul (0.8-2.9); MONOCYTE # 0.3 10^3/ul (0.3-0.9); NEUTROPHIL # 10.6 10^3/ul (1.6-7.5)
[2016-09-06] MEDS ORDERED: ONDANSETRON 4 MG INJ IV PRN (12:30)
--- NOTE | 2016-09-06 13:39 | CONS ---
Date/Time of Note Date/Time of Note DATE: 09/06/16 TIME: 13:29 Assessment/Plan Assessment/Plan Chief Complaint/Hosp Course 61 yo with metastatic cervical cancer s/p chemotherapy , immunotherapy and radiation. Per the son and daughter patient has progressive disease that has progressed to the brain. IT seems that the [facility] oncologist does believe this patient is a candidate for more therapy at this time. Per the families understanding, they are waiting for their mother;s functional status to improve so she can try more treatment at [facility]. #Metastatic Cervical Cancer -at this time, patient has an extremely poor functional status and is in a critical state in the ICU. there is no oncologic treatment that can be given at this time while she is critically ill. Even if she is able to overcome this acute infection, it is unlikely she would be a candidate for more therapy. The family however, would like to discuss this with their primary oncologist once the patient is able to go home #Brain Mets -per the son, pt was told that she was not a candidate for post op brain radiation. #Sepsis - lactate> 5. this is likely secondary to the urine in the nephrostomy tubes -continue broad spectrum antibiotics -cont pressor support approximately 1 hour was spent at patient's bedside, with her family, and coordination of her care Problems: Consultation Date/Type/Reason Admit Date/Time September 05, 2016 at 16:23 Date of Consultation: September 06, 2016 Type of Consultation: oncology Reason for Consultation metastatic cervical cancer/ anemia Referring Provider: ONEIDA COLEMAN Hx of Present Illness 61-year-old female who is currently being treated at [facility] for metastatic cervical cancer. Per her son she was diagnosed in 2013 in [place] when she had bilateral nephrostomy tubes placed. She was then treated at [facility] where she underwent chemotherapy and then immunotherapy from 2014 to June 2015. Unfortunately her cancer progressed to the brain. She underwent a brain resection of the tumor. Pt at some point received radiation to the abdomen in fall 2015 but was not able to receive any more radiation to the abdomen or brain due to her poor performance status. Of note pt was also diagnosed with bilateral DVT's and has an IVC filter in place. She now presents to [facility] with extreme weakness and low blood pressure. In the ER her Hg was found to be < 8 with an elevated lactate of 5.2. She has since had 2 units of PRBC and her Hg responded appropriately to 11. She also c/o nausea. Since her blood transfusion her dizziness has improved. Cultures were drawn in the ER and pt was started on vancomycin and zosyn. Pt had nephrostomy tubes place in 2013. Urine from the nephrostomy tubes was sent for culture. Pt is currently on maximum Levophed despite the blood transfusion. Pt has been seen by GI and is scheduled for colonoscopy. Constitutional: disoriented, poor po Eyes: no complaints ENT: no complaints Respiratory: shortness of breath Cardiovascular: no complaints Gastrointestinal: decreased appetite, nausea Genitourinary: other (nephrostomy tubes in place) Musculoskeletal: bone/joint pain Skin: no complaints Neurologic: no complaints Past Medical History metastatic cervical ca s/p bilateral nephrostomy tubes placed, apparently in 2013. Medical History: other (cervical cancer) Past Surgical History Past Surgical Hx: other (neprhostomy tube bilateral) Social History Alcohol Use: rarely Smoking Status: Never smoker Exam/Review of Systems Vital Signs Vitals Vital Signs Date Time Temp Pulse Resp B/P Pulse Ox O2 Delivery O2 Flow Rate FiO2 09/06/16 11:15 115 24 98/71 09/06/16 11:00 100 Room Air 09/06/16 08:00 98.3 Intake and Output 09/05/16 09/05/16 09/06/16 15:00 23:00 07:00 Intake Total 687.82 ml 1378.95 ml Output Total 275 ml Balance 687.82 ml 1103.95 ml Exam Constitutional: alert, frail, oriented Psych: depression Head: normocephalic Eyes: nl conjunctiva ENMT: nl external ears & nose Neck: non-tender, supple Respiratory: clear to auscultation Cardiovascular: other (tachycardic) Gastrointestinal: soft Musculoskeletal: nl extremities to inspection, nl gait and stance Results Result Diagram: 09/06/16 0550 09/06/16 0550 Results 24 hrs Laboratory Tests Test 09/05/16 14:25 09/05/16 17:15 09/05/16 18:50 09/05/16 20:15 White Blood Count 9.6 Red Blood Count 2.69 L Hemoglobin 7.6 L Hematocrit 23.6 L Mean Corpuscular Volume 87.7 Mean Corpuscular Hemoglobin 28.3 L Mean Corpuscular Hemoglobin Concent 32.2 Red Cell Distribution Width 20.8 H Platelet Count 244 Mean Platelet Volume 11.9 H Neutrophils % 77.0 Band Neutrophils % 19.0 H Lymphocytes % 3.0 L Eosinophils % Myelocytes % 1.0 H Nucleated Red Blood Cells % 2.0 H Neutrophils # 7.4 Lymphocytes # 0.3 L Eosinophils # Myelocytes # 0.1 Hypochromasia 1+ Prothrombin Time 14.8 H Prothrombin Time Ratio 1.2 INR International Normalized Ratio 1.16 Activated Partial Thromboplast Time 35.0 Sodium Level 134 L 134 L Potassium Level 2.1 *L 2.6 *L Chloride Level 101 107 Carbon Dioxide Level 19 L 23 Anion Gap 16 7 #L Blood Urea Nitrogen 61 H 56 H Creatinine 1.45 H 1.24 H Glucose Level 121 92 Lactic Acid Level 5.2 *H 5.7 *H 2.6 H Calcium Level 7.2 L 6.7 L Total Bilirubin 0.1 L Direct Bilirubin 0.00 Indirect Bilirubin 0.1 Aspartate Amino Transf (AST/SGOT) 25 Alanine Aminotransferase (ALT/SGPT) 61 Alkaline Phosphatase 164 H Troponin I 0.021 Total Protein 4.1 L Albumin 1.6 L Globulin 2.50 Albumin/Globulin Ratio 0.64 Phosphorus Level 3.4 Magnesium Level 1.9 Free Thyroxine 1.48 Test 09/05/16 22:02 09/06/16 00:41 09/06/16 05:50 09/06/16 06:10 Bedside Glucose 110 108 Lactic Acid Level 1.5 2.1 White Blood Count 13.8 #H Red Blood Count 3.87 #L Hemoglobin 11.0 #L Hematocrit 34.0 #L Mean Corpuscular Volume 87.9 Mean Corpuscular Hemoglobin 28.4 L Mean Corpuscular Hemoglobin Concent 32.4 Red Cell Distribution Width 18.9 H Platelet Count 231 Mean Platelet Volume 12.1 H Neutrophils % 77.0 Band Neutrophils % 16.0 H Lymphocytes % 5.0 L Monocytes % 2.0 Eosinophils % Neutrophils # 10.6 H Lymphocytes # 0.7 L Monocytes # 0.3 Eosinophils # Sodium Level 140 Potassium Level 4.1 Chloride Level 110 Carbon Dioxide Level 17 L Anion Gap 17 #H Blood Urea Nitrogen 54 H Creatinine 1.10 H Glucose Level 96 Hemoglobin A1c 5.0 Calcium Level 7.1 L Phosphorus Level 3.3 Magnesium Level 1.8 Triglycerides Level 316 H Cholesterol Level 70 L LDL Cholesterol, Calculated HDL Cholesterol 35 Cholesterol/HDL Ratio 2.0 Thyroid Stimulating Hormone (TSH) 7.920 H Test 09/06/16 09:09 Bedside Glucose 123 Medications Medications Current Medications Acetaminophen (Tylenol Tab) 650 mg Q6H PRN PO PAIN LEVEL 1-3 OR FEVER; Start at 18:30 Acetaminophen/ Hydrocodone Bitart ([place] (5/325)) 1 tab Q6H PRN PO MODERATE PAIN LEVEL 4-6; Start 09/05/16 at 18:30 Morphine Sulfate (morphine) 2 mg Q4H PRN IV SEVERE PAIN LEVEL 7-10; Start 09/05 at 18:30 Docusate Sodium (Colace) 100 mg Q12H PRN PO CONSTIPATION; Start 09/05/16 at 18: 30 Magnesium Hydroxide (Milk Of Mag) 30 ml DAILY PRN PO CONSTIPATION; Start at 18:30 Sodium Biphosphate/ Sodium Phosphate (Fleet Enema) 133 ml DAILY PRN [place] CONSTIPATION; Start 09/05/16 at 18:30 Lorazepam 0.5 mg 0.5 mg Q6H PRN IV ANXIETY; Start 09/05/16 at 18:30 Sodium Chloride 1,000 ml @ 100 mls/hr Q10H IV Last administered on 09/06/16 09:27; Admin Dose 100 MLS/HR; Start 09/05/16 at 19:00 Piperacillin Sod/ Tazobactam Sod (Zosyn 2.25gm/ 50ml (Pmx)) 50 ml @ 100 mls/hr Q6 IVPB Last administered on 09/06/16 12:51; Admin Dose 100 MLS/HR; Start at 00:00 Vancomycin HCl (Vanco Iv Per Pharmacy) VANCOMYCIN PER PHARMACY NOTE XX ; Start 09/05/16 at 18:30 Hydralazine HCl (Apresoline) 10 mg Q6H PRN IV ELEVATED BLOOD PRESSURE; Start at 18:30 Nitroglycerin (Nitroglycerin (Sl Tab) 0.4 Mg) 1 tab Q5M PRN SL ANGINA; Start at 18:30 Insulin Aspart (Novolog Insulin Pen) NOVOLOG *MILD* ALGORI... Q4 SC ; Start at 21:00 Cyanocobalamin (Vitamin B12) 2,500 mcg DAILY PO Last administered on 09/06/16 09:37; Admin Dose 2,500 MCG; Start 09/06/16 at 09:00 Miscellaneous Information 1 ea NOTE XX ; Start 09/05/16 at 19:00 Glucose (Glutose) 15 gm Q15M PRN PO DECREASED GLUCOSE; Start 09/05/16 at 19:00 Glucose (Glutose) 22.5 gm Q15M PRN PO DECREASED GLUCOSE; Start 09/05/16 at 19: 00 Dextrose (D50w Syringe) 25 ml Q15M PRN IV DECREASED GLUCOSE; Start 09/05/16 at 19:00 Dextrose (D50w Syringe) 50 ml Q15M PRN IV DECREASED GLUCOSE; Start 09/05/16 at 19:00 Glucagon (Glucagen) 1 mg Q15M PRN IM DECREASED GLUCOSE; Start 09/05/16 at 19:00 Glucose (Glutose) 15 gm Q15M PRN BUCCAL DECREASED GLUCOSE; Start 09/05/16 at 19 :00 Famotidine 20 mg 20 mg DAILY IV Last administered on 09/06/16 09:37; Admin Dose 20 MG; Start 09/05/16 at 19:00 Norepinephrine 16 mg/Dextrose 500 ml @ 0 mls/hr TITRATE IV Last administered on 09/06/16 12:55; Admin Dose 56.25 MLS/HR; Start 09/06/16 at 07:00 Vancomycin HCl/ Sodium Chloride (Vancocin/NS) 150 ml @ 75 mls/hr Q24H IVPB ; Start 09/06/16 at 20:00 Trimethobenzamide HCl 200 mg 200 mg Q6H PRN IM NAUSEA AND/OR VOMITING; Start at 10:30 Phenylephrine HCl 80 mg/Dextrose 500 ml @ 37.5 mls/hr TITRATE IV ; Start at 10:30 Ondansetron HCl/ Sodium Chloride (Zofran Inj/NS) 54 ml @ 216 mls/hr Q6H PRN IV NAUSEA AND/OR VOMITING; Start 09/06/16 at 10:30 MINOO SOTO M.D. September 06, 2016 13:39
[2016-09-06] MEDS: VANCOMYCIN 750 MG in SOD CHLORIDE 0.9% 150 ML IVPB SCH (19:55)
[2016-09-07] VITALS (95 sets, daily range): BP systolic 57–121; BP diastolic 28–90; PULSE 91–158; RESP 10–32
[2016-09-07] MEDS: SOD CHLORIDE 0.9% 1,000 ML IV SCH ×2 (00:43→10:35)
[2016-09-07] MEDS: INSULIN ASPART [NOVOLOG] 3 ML PEN SC SCH ×6 (01:10→20:56)
[2016-09-07] MEDS: PIPER-TAZO 2.25 GM (PMX) 50 ML IVPB SCH ×4 (05:29→23:35)
[2016-09-07 05:39] LABS: ADD SCAN DIFF NO
[2016-09-07 05:55] LABS: ABNORMAL IP MESSAGE 1; BASOPHIL # 0.1 10^3/ul (0.0-0.1); BASOPHILS % 0.9 % (0.0-2.0); EOSINOPHILS % 0.1 % (0.0-7.0); HEMOGLOBIN 12.3 g/dl (12.0-16.0); LYMPHOCYTES # 0.4 10^3/ul (0.8-2.9); MEAN CORPUSCULAR HGB CONC 32.4 g/dl (32.0-37.0); MEAN CORPUSCULAR VOLUME 89.6 fl (82.0-101.0); MEAN PLATELET VOLUME 11.8 fl (7.4-10.4); MONOCYTE # 0.4 10^3/ul (0.3-0.9); NEUTROPHIL # 11.3 10^3/ul (1.6-7.5); NUCLEATED RED BLOOD CELLS # 0.1 10^3/ul (0.0-0.0); NUCLEATED RED BLOOD CELLS% 0.4 /100WBC (0.0-0.0); PLATELET COUNT 182 10^3/UL (140-415); RED BLOOD COUNT 4.24 10^6/ul (4.20-5.40); RED CELL DISTRIBUTION WIDTH 19.6 % (11.5-14.5); WHITE BLOOD COUNT 12.4 10^3/ul (4.8-10.8)
[2016-09-07 06:12] LABS: NEUTROPHILS % 91.1 % (39.0-77.0)
[2016-09-07 07:34] LABS: POTASSIUM 3.2 mmol/L (3.5-5.1)
[2016-09-07 07:35] LABS: CALCIUM 7.4 mg/dl (8.4-10.2); CREATININE 1.1 mg/dl (0.44-1.00)
[2016-09-07] MEDS: POTASSIUM CHLORIDE 50 ML IVPB PRN ×3 (08:08→09:50)
[2016-09-07] MEDS ORDERED: BISACODYL (EC) 5 MG TAB PO ONE (09:00)
--- NOTE | 2016-09-07 09:21 | PN ---
Date/Time of Note Date/Time of Note DATE: 09/07/16 TIME: 09:18 Assessment/Plan VTE Prophylaxis VTE Prophylaxis Intervention: SCD's Lines/Catheters IV [facility]ter Type (from [facility]): TERRI cath Urinary Cath still in place: No Assessment/Plan Chief Complaint/Hosp Course ASSESSMENT AND PLAN: 61-year-old female with prior history of cervical cancer with metastasis, last radiation 1 month ago, who presents with weakness and anemia, severe hypokalemia and lactic acidosis. 1. Sepsis/shock - present given the lactic acid and the hypotension. Still on pressor support. - continue IV fluid rehydration. F/u Heme/Onc rec's - Trend the lactic acid as well (nL now) - broad spectrum abx, f/u UA results. - F/u PT and OT consult as well. 2. Anemia. Unclear source. Could be secondary to GI blood losses, although there are no signs of any upper or lower GI bleeding. Also related to pt's cancer possibly. s/p pRBC transfusion. - f/u occult stool test, GI consult rec's as well - for possible colonoscopy in 24 hrs. 3. History of bilateral nephrostomy tubes with some mild renal insufficiency. Nephrostomy tube and bags appear to be draining well. - Continue to monitor for now. Aggressive IV fluid rehydration. - If there are any abnormalities, may need to get urology consult. 4. Gastrointestinal prophylaxis -H2 chance. 5. Deep venous thrombosis prophylaxis - SCDs. 6. cervical ca w/ mets - apparently last radiation 1 mth ago at [facility] - per Heme/Onc rec's there is no oncologic treatment that can be given at this time while she is critically ill. - will get palliative care consult Critical care time spent with care today = 40 min. Problems: Subjective 24 Hr Interval Summary Free Text/Dictation Pt with some less n/v, still on pressor support, seen by heme/Onc team. Exam/Review of Systems Vital Signs Vitals Vital Signs Date Time Temp Pulse Resp B/P Pulse Ox O2 Delivery O2 Flow Rate FiO2 09/07/16 06:30 127 19 103/80 100 Room Air 09/07/16 04:00 98.0 Intake and Output 09/06/16 09/06/16 09/07/16 15:00 23:00 07:00 Intake Total 1250.00 ml 1750.00 ml 1527.25 ml Output Total 100 ml 540 ml 420 ml Balance 1150.00 ml 1210.00 ml 1107.25 ml Exam GENERAL: The patient is lying in bed, still lethargic, able to answer questions HEENT: Pupils are equal, round, react to light. Extraocular muscles intact. NECK: Supple. No thyromegaly. LUNGS: Clear to auscultation bilaterally. CARDIOVASCULAR: S1 and S2 heard. Tachycardic heart rate. No rubs or gallops. ABDOMEN: Soft, nontender, nondistended. Normal bowel sounds. No rebound or guarding. There are bilateral nephrostomy tubes in the flanks. MUSCULOSKELETAL: No lower extremity edema bilaterally. NEUROLOGIC: No focal deficits. Results Result Diagram: 09/07/16 0430 09/07/16 0430 Results 24 hrs Laboratory Tests Test 09/06/16 13:50 09/06/16 13:51 09/06/16 18:12 09/06/16 18:20 Lactic Acid Level 1.9 2.2 Bedside Glucose 147 136 Test 09/06/16 20:47 09/07/16 01:07 09/07/16 04:30 09/07/16 05:35 Bedside Glucose 132 154 White Blood Count 12.4 H Red Blood Count 4.24 Hemoglobin 12.3 Hematocrit 38.0 Mean Corpuscular Volume 89.6 Mean Corpuscular Hemoglobin 29.0 Mean Corpuscular Hemoglobin Concent 32.4 Red Cell Distribution Width 19.6 H Platelet Count 182 # Mean Platelet Volume 11.8 H Neutrophils % 91.1 H Lymphocytes % 3.0 L Monocytes % 3.0 Eosinophils % 0.1 Basophils % 0.9 Nucleated Red Blood Cells % 0.4 H Neutrophils # 11.3 H Lymphocytes # 0.4 L Monocytes # 0.4 Eosinophils # 0.0 Basophils # 0.1 Nucleated Red Blood Cells # 0.1 H Sodium Level 139 Potassium Level 3.2 L Chloride Level 117 H Carbon Dioxide Level 14 L Anion Gap 11 Blood Urea Nitrogen 48 H Creatinine 1.10 H Glucose Level 147 # Calcium Level 7.4 L Lab Scanned Report BLOOD TRANSFUSION Test 09/07/16 05:56 09/07/16 08:31 Bedside Glucose 154 128 Medications Medications Current Medications Acetaminophen (Tylenol Tab) 650 mg Q6H PRN PO PAIN LEVEL 1-3 OR FEVER; Start at 18:30 Acetaminophen/ Hydrocodone Bitart ([place] (5/325)) 1 tab Q6H PRN PO MODERATE PAIN LEVEL 4-6; Start 09/05/16 at 18:30 Morphine Sulfate (morphine) 2 mg Q4H PRN IV SEVERE PAIN LEVEL 7-10; Start 09/05 at 18:30 Docusate Sodium (Colace) 100 mg Q12H PRN PO CONSTIPATION; Start 09/05/16 at 18: 30 Magnesium Hydroxide (Milk Of Mag) 30 ml DAILY PRN PO CONSTIPATION; Start at 18:30 Sodium Biphosphate/ Sodium Phosphate (Fleet Enema) 133 ml DAILY PRN [place] CONSTIPATION; Start 09/05/16 at 18:30 Lorazepam 0.5 mg 0.5 mg Q6H PRN IV ANXIETY; Start 09/05/16 at 18:30 Sodium Chloride 1,000 ml @ 100 mls/hr Q10H IV Last administered on 09/07/16 00:43; Admin Dose 100 MLS/HR; Start 09/05/16 at 19:00 Piperacillin Sod/ Tazobactam Sod (Zosyn 2.25gm/ 50ml (Pmx)) 50 ml @ 100 mls/hr Q6 IVPB Last administered on 09/07/16 05:29; Admin Dose 100 MLS/HR; Start at 00:00 Vancomycin HCl (Vanco Iv Per Pharmacy) VANCOMYCIN PER PHARMACY NOTE XX ; Start 09/05/16 at 18:30 Hydralazine HCl (Apresoline) 10 mg Q6H PRN IV ELEVATED BLOOD PRESSURE; Start at 18:30 Nitroglycerin (Nitroglycerin (Sl Tab) 0.4 Mg) 1 tab Q5M PRN SL ANGINA; Start at 18:30 Insulin Aspart (Novolog Insulin Pen) NOVOLOG *MILD* ALGORI... Q4 SC Last administered on 09/07/16 06:10; Admin Dose 1 UNIT; Start 09/05/16 at 21:00 Cyanocobalamin (Vitamin B12) 2,500 mcg DAILY PO Last administered on 09/06/16 09:37; Admin Dose 2,500 MCG; Start 09/06/16 at 09:00 Miscellaneous Information 1 ea NOTE XX ; Start 09/05/16 at 19:00 Glucose (Glutose) 15 gm Q15M PRN PO DECREASED GLUCOSE; Start 09/05/16 at 19:00 Glucose (Glutose) 22.5 gm Q15M PRN PO DECREASED GLUCOSE; Start 09/05/16 at 19: 00 Dextrose (D50w Syringe) 25 ml Q15M PRN IV DECREASED GLUCOSE; Start 09/05/16 at 19:00 Dextrose (D50w Syringe) 50 ml Q15M PRN IV DECREASED GLUCOSE; Start 09/05/16 at 19:00 Glucagon (Glucagen) 1 mg Q15M PRN IM DECREASED GLUCOSE; Start 09/05/16 at 19:00 Glucose (Glutose) 15 gm Q15M PRN BUCCAL DECREASED GLUCOSE; Start 09/05/16 at 19 :00 Famotidine 20 mg 20 mg DAILY IV Last administered on 09/06/16 09:37; Admin Dose 20 MG; Start 09/05/16 at 19:00 Norepinephrine 16 mg/Dextrose 500 ml @ 0 mls/hr TITRATE IV Last administered on 09/06/16 23:45; Admin Dose 56.25 MLS/HR; Start 09/06/16 at 07:00 Vancomycin HCl/ Sodium Chloride (Vancocin/NS) 150 ml @ 75 mls/hr Q24H IVPB Last administered on 09/06/16 19:55; Admin Dose 75 MLS/HR; Start 09/06/16 at 20 :00 Trimethobenzamide HCl 200 mg 200 mg Q6H PRN IM NAUSEA AND/OR VOMITING; Start at 10:30 Phenylephrine HCl 80 mg/Dextrose 500 ml @ 37.5 mls/hr TITRATE IV ; Start at 10:30 Ondansetron HCl/ Sodium Chloride (Zofran Inj/NS) 54 ml @ 216 mls/hr Q6H PRN IV NAUSEA AND/OR VOMITING; Start 09/06/16 at 10:30 Magnesium Citrate (Citroma) 300 ml ONCE ONCE PO ; Start 09/07/16 at 17:30; Stop 09/07/16 at 17:31 Polyethylene Glycol (Miralax) 119 gm ONCE ONCE PO ; Start 09/07/16 at 18:30; Stop 09/07/16 at 18:31 ONEIDA COLEMAN September 07, 2016 09:21
[2016-09-07] MEDS ORDERED: POTASSIUM CHLORIDE 250 ML IVPB SCH (09:30)
[2016-09-07] MEDS: FAMOTIDINE 20 MG INJ IV SCH (09:50)
[2016-09-07] MEDS: CYANOCOBALAMIN 500 MCG TAB PO SCH (09:50)
--- NOTE | 2016-09-07 10:00 | RADRPT ---
Echocardiogram Report Patient Name: JONNY CARMONA Gender: Female Date: 1955 Study Date: 06-Sep-2016 Traffic Control Operator: JUDITH Location: E Ref. Physician: ONEIDA COLEMAN Quality: Technically Difficult Study Procedures: Transthoracic echocardiogram with 2D, M-Mode, and Doppler examination. Indications: Shortness of breath. 2D/M Mode Doppler Measurement Value Normal Ranges Measurement Value Normal Ranges AoR Diam MM 2.8 cm AV Peak Jose F 0.7 m/sec ACS MM 1.8 cm AV Peak PG 2.2 mmHg LVIDd 2D 3.7 3.5 - 5.6 cm LVOT Peak Jose F 0.7 m/sec LVIDs 2D 3.2 2.1 - 4.1 cm LVOT Peak PG 2.2 mmHg LVPWd 2D 1.0 0.6 - 1.1 cm MV E Peak Jose F 0.5 m/sec IVSd 2D 1.4 0.6 - 1.1 cm MV A Peak Jose F 0.4 m/sec EDV 2D 59.2 cm3 MV E/A 1.1 ESV 2D 32.3 cm3 MV Decel Time 95 msec LA Dimen 2D 2.6 2.3 - 4.0 cm MV Decel Emanuel 5 MV E/A 1.1 TR Peak Jose F 2.5 m/sec TR Peak PG 24.9 mmHg RVSP 27.9 mmHg Findings Left Ventricle: Normal left ventricular cavity size. Mild hypertrophy of the basal septum. Severe left ventricular systolic dysfunction. Ejection fraction is visually estimated at 0 %. Tissue Doppler/Mitral Doppler indices are consistent with pseudonormalization with mildly elevated left atrial pressure (Stage II diastolic dysfunction), patient could not Valsalva. E/E`=6. Multiple segmental wall motion abnormalities. E`=0 cm/s. Right Ventricle: Normal right ventricular size. Left Atrium: The left atrium is normal in size. Right Atrium: The right atrium is normal in size. Atrial Septum: Normal atrial septum. Mitral Valve: Normal appearance of the mitral valve. Mild mitral valve regurgitation. Aortic Valve: Normal appearance of the aortic valve. No significant aortic stenosis or insufficiency. Tricuspid Valve: Normal appearance of the tricuspid valve. Estimated peak PA systolic pressure 28 mmHg. There is trace tricuspid regurgitation. Pulmonic Valve: Pulmonic valve not well visualized. Pericardium: Normal pericardium with no significant pericardial effusion. Aorta: Normal aortic root. IVC: Normal size and normal respiratory collapse consistent with normal right atrial pressure. Conclusions 1.Severe LV dysfunction with an EF of 20%. 2.Normal appearance of the mitral valve. Mild mitral valve regurgitation. 3.Normal appearance of the aortic valve. No significant aortic stenosis or insufficiency. 4.Normal appearance of the tricuspid valve. Estimated peak PA systolic pressure 28 mmHg. There is trace tricuspid regurgitation. 5.Pulmonic valve not well visualized. 6.Normal pericardium with no significant pericardial effusion. Electronically Signed By: Dianne Barry 07-Sep-2016 09:59:14 -0700 Patient Name: JONNY CARMONA Study Date: 06-Sep-2016 [id number]
--- NOTE | 2016-09-07 13:05 | PN ---
Date/Time of Note Date/Time of Note DATE: 09/07/16 TIME: 13:03 Assessment/Plan VTE Prophylaxis VTE Prophylaxis Intervention: SCD's Lines/Catheters IV [facility] PORT-A-CATH Urinary Cath still in place: No Assessment/Plan Assessment/Plan Anemia controlled * Diarrhea R/O infectious vs inflammatory vs radiation induced * Sepsis * History of cervical cancer * S/P nephrostomy tube bilateral Plan * continue present management * colonoscopy risk and benefit explained to patient and relative agreed with planned procedure * stool for occult blood Subjective 24 Hr Interval Summary Free Text/Dictation * Course reviewed with RN * No episode of diarrhea * still on pressors * Latest hemoglobin 11.3 Exam/Review of Systems Vital Signs Vitals Vital Signs Date Time Temp Pulse Resp B/P Pulse Ox O2 Delivery O2 Flow Rate FiO2 09/07/16 10:30 110 19 92/77 09/07/16 10:00 99 Room Air 09/07/16 08:00 97.6 Intake and Output 09/06/16 09/06/16 09/07/16 15:00 23:00 07:00 Intake Total 1250.00 ml 1750.00 ml 1527.25 ml Output Total 100 ml 540 ml 420 ml Balance 1150.00 ml 1210.00 ml 1107.25 ml Exam Constitutional: frail Eyes: nl sclera Neck: non-tender, supple Respiratory: clear to auscultation, diminished breath sounds, normal air movement Cardiovascular: nl pulses, regular rate and rhythm Gastrointestinal: non-tender, soft Musculoskeletal: nl extremities to inspection, nl gait and stance Extremities: normal pulses Neurological: nl speech Skin: nl turgor Results Result Diagram: 09/07/16 0430 09/07/16 0430 Results 24 hrs Laboratory Tests Test 09/06/16 13:50 09/06/16 13:51 09/06/16 18:12 09/06/16 18:20 Lactic Acid Level 1.9 2.2 Bedside Glucose 147 136 Test 09/06/16 20:47 09/07/16 01:07 09/07/16 04:30 09/07/16 05:35 Bedside Glucose 132 154 White Blood Count 12.4 H Red Blood Count 4.24 Hemoglobin 12.3 Hematocrit 38.0 Mean Corpuscular Volume 89.6 Mean Corpuscular Hemoglobin 29.0 Mean Corpuscular Hemoglobin Concent 32.4 Red Cell Distribution Width 19.6 H Platelet Count 182 # Mean Platelet Volume 11.8 H Neutrophils % 91.1 H Lymphocytes % 3.0 L Monocytes % 3.0 Eosinophils % 0.1 Basophils % 0.9 Nucleated Red Blood Cells % 0.4 H Neutrophils # 11.3 H Lymphocytes # 0.4 L Monocytes # 0.4 Eosinophils # 0.0 Basophils # 0.1 Nucleated Red Blood Cells # 0.1 H Sodium Level 139 Potassium Level 3.2 L Chloride Level 117 H Carbon Dioxide Level 14 L Anion Gap 11 Blood Urea Nitrogen 48 H Creatinine 1.10 H Glucose Level 147 # Calcium Level 7.4 L Lab Scanned Report BLOOD TRANSFUSION Test 09/07/16 05:56 09/07/16 08:31 09/07/16 12:48 Bedside Glucose 154 128 127 Medications Medications Current Medications Acetaminophen (Tylenol Tab) 650 mg Q6H PRN PO PAIN LEVEL 1-3 OR FEVER; Start at 18:30 Acetaminophen/ Hydrocodone Bitart ([place] (5/325)) 1 tab Q6H PRN PO MODERATE PAIN LEVEL 4-6; Start 09/05/16 at 18:30 Morphine Sulfate (morphine) 2 mg Q4H PRN IV SEVERE PAIN LEVEL 7-10; Start 09/05 at 18:30 Docusate Sodium (Colace) 100 mg Q12H PRN PO CONSTIPATION; Start 09/05/16 at 18: 30 Magnesium Hydroxide (Milk Of Mag) 30 ml DAILY PRN PO CONSTIPATION; Start at 18:30 Sodium Biphosphate/ Sodium Phosphate (Fleet Enema) 133 ml DAILY PRN MS CONSTIPATION; Start 09/05/16 at 18:30 Lorazepam 0.5 mg 0.5 mg Q6H PRN IV ANXIETY; Start 09/05/16 at 18:30 Sodium Chloride 1,000 ml @ 100 mls/hr Q10H IV Last administered on 09/07/16 10:35; Admin Dose 100 MLS/HR; Start 09/05/16 at 19:00 Piperacillin Sod/ Tazobactam Sod (Zosyn 2.25gm/ 50ml (Pmx)) 50 ml @ 100 mls/hr Q6 IVPB Last administered on 09/07/16 12:49; Admin Dose 100 MLS/HR; Start at 00:00 Vancomycin HCl (Vanco Iv Per Pharmacy) VANCOMYCIN PER PHARMACY NOTE XX ; Start 09/05/16 at 18:30 Hydralazine HCl (Apresoline) 10 mg Q6H PRN IV ELEVATED BLOOD PRESSURE; Start at 18:30 Nitroglycerin (Nitroglycerin (Sl Tab) 0.4 Mg) 1 tab Q5M PRN SL ANGINA; Start at 18:30 Insulin Aspart (Novolog Insulin Pen) NOVOLOG *MILD* ALGORI... Q4 SC Last administered on 09/07/16 06:10; Admin Dose 1 UNIT; Start 09/05/16 at 21:00 Cyanocobalamin (Vitamin B12) 2,500 mcg DAILY PO Last administered on 09/07/16 09:50; Admin Dose 2,500 MCG; Start 09/06/16 at 09:00 Miscellaneous Information 1 ea NOTE XX ; Start 09/05/16 at 19:00 Glucose (Glutose) 15 gm Q15M PRN PO DECREASED GLUCOSE; Start 09/05/16 at 19:00 Glucose (Glutose) 22.5 gm Q15M PRN PO DECREASED GLUCOSE; Start 09/05/16 at 19: 00 Dextrose (D50w Syringe) 25 ml Q15M PRN IV DECREASED GLUCOSE; Start 09/05/16 at 19:00 Dextrose (D50w Syringe) 50 ml Q15M PRN IV DECREASED GLUCOSE; Start 09/05/16 at 19:00 Glucagon (Glucagen) 1 mg Q15M PRN IM DECREASED GLUCOSE; Start 09/05/16 at 19:00 Glucose (Glutose) 15 gm Q15M PRN BUCCAL DECREASED GLUCOSE; Start 09/05/16 at 19 :00 Famotidine 20 mg 20 mg DAILY IV Last administered on 09/07/16 09:50; Admin Dose 20 MG; Start 09/05/16 at 19:00 Norepinephrine 16 mg/Dextrose 500 ml @ 0 mls/hr TITRATE IV Last administered on 09/07/16 09:19; Admin Dose 48.75 MLS/HR; Start 09/06/16 at 07:00 Vancomycin HCl/ Sodium Chloride (Vancocin/NS) 150 ml @ 75 mls/hr Q24H IVPB Last administered on 09/06/16 19:55; Admin Dose 75 MLS/HR; Start 09/06/16 at 20 :00 Trimethobenzamide HCl 200 mg 200 mg Q6H PRN IM NAUSEA AND/OR VOMITING; Start at 10:30 Phenylephrine HCl 80 mg/Dextrose 500 ml @ 37.5 mls/hr TITRATE IV ; Start at 10:30 Ondansetron HCl/ Sodium Chloride (Zofran Inj/NS) 54 ml @ 216 mls/hr Q6H PRN IV NAUSEA AND/OR VOMITING; Start 09/06/16 at 10:30 Magnesium Citrate (Citroma) 300 ml ONCE ONCE PO ; Start 09/07/16 at 17:30; Stop 09/07/16 at 17:31 Polyethylene Glycol (Miralax) 119 gm ONCE ONCE PO ; Start 09/07/16 at 18:30; Stop 09/07/16 at 18:31 Miscellaneous Information (*Rx Drug Level Order Reminder*) VANCOMYCIN TROUGH AT 1900 ONCE ONCE XX ; Start 09/07/16 at 19:00; Stop 09/07/16 at 19:01 SAKSHI MENA MD September 07, 2016 13:05
[2016-09-07] MEDS: PHENYLephrine 80 MG in DEXTROSE 5% 492 ML IV SCH ×3 (13:49→23:36)
[2016-09-07] MEDS ORDERED: MAGNESIUM CITRATE 300 ML BTL PO ONE (17:30)
[2016-09-07] MEDS ORDERED: POLYETHYLENE GLYCOL 3350 119 GM POWDER PO ONE (18:30)
[2016-09-07] MEDS: VANCOMYCIN 750 MG in SOD CHLORIDE 0.9% 150 ML IVPB SCH (20:49)
[2016-09-08] VITALS (95 sets, daily range): BP systolic 64–205; BP diastolic 32–113; PULSE 87–183; RESP 19–41
[2016-09-08] MEDS: INSULIN ASPART [NOVOLOG] 3 ML PEN SC SCH ×6 (01:10→20:47)
[2016-09-08] MEDS: SOD CHLORIDE 0.9% 1,000 ML IV SCH ×2 (01:12→11:46)
[2016-09-08] MEDS: PHENYLephrine 80 MG in DEXTROSE 5% 492 ML IV SCH ×5 (01:52→11:13)
[2016-09-08] MEDS ORDERED: POLYETHYLENE GLYCOL 3350 119 GM POWDER PO ONE (05:00)
[2016-09-08] MEDS ORDERED: BISACODYL (EC) 5 MG TAB PO ONE (05:00)
[2016-09-08] MEDS: PIPER-TAZO 2.25 GM (PMX) 50 ML IVPB SCH ×3 (05:48→17:55)
[2016-09-08 06:15] LABS: ADD SCAN DIFF NO
[2016-09-08 06:18] LABS: ABNORMAL IP MESSAGE 1; BASOPHIL # 0.1 10^3/ul (0.0-0.1); BASOPHILS % 0.6 % (0.0-2.0); EOSINOPHILS % 0.2 % (0.0-7.0); HEMATOCRIT 39.9 % (37.0-47.0); HEMOGLOBIN 13.1 g/dl (12.0-16.0); LYMPHOCYTES # 0.4 10^3/ul (0.8-2.9); LYMPHOCYTES % 3.8 % (15.0-51.0); MEAN CORPUSCULAR HEMOGLOBIN 29.1 pg (29.0-33.0); MEAN CORPUSCULAR HGB CONC 32.8 g/dl (32.0-37.0); MEAN CORPUSCULAR VOLUME 88.7 fl (82.0-101.0); MEAN PLATELET VOLUME 12.3 fl (7.4-10.4); MONOCYTE # 0.3 10^3/ul (0.3-0.9); MONOCYTES % 2.6 % (0.0-11.0); NEUTROPHIL # 9.3 10^3/ul (1.6-7.5); NUCLEATED RED BLOOD CELLS # 0.1 10^3/ul (0.0-0.0); NUCLEATED RED BLOOD CELLS% 0.6 /100WBC (0.0-0.0); PLATELET COUNT 123 10^3/UL (140-415); WHITE BLOOD COUNT 10.3 10^3/ul (4.8-10.8)
[2016-09-08 06:21] LABS: NEUTROPHILS % 90.2 % (39.0-77.0)
[2016-09-08 07:08] LABS: POTASSIUM 3.7 mmol/L (3.5-5.1)
[2016-09-08 07:10] LABS: CREATININE 0.97 mg/dl (0.44-1.00)
[2016-09-08 07:11] LABS: CALCIUM 7.5 mg/dl (8.4-10.2)
[2016-09-08] MEDS: CYANOCOBALAMIN 500 MCG TAB PO SCH (09:00)
[2016-09-08] MEDS: POTASSIUM CHLORIDE 50 ML IVPB PRN (09:03)
[2016-09-08] MEDS: FAMOTIDINE 20 MG INJ IV SCH (09:03)
--- NOTE | 2016-09-08 09:37 | RADRPT ---
PROCEDURE: XR Abdomen. CLINICAL INDICATION: Ileus. Diarrhea. TECHNIQUE: Single view of the abdomen is available for review. COMPARISON: None. FINDINGS: There is gaseous distension of the large and small bowel loops. An IVC filter overlies the T12 and L1 vertebral bodies. Bilateral percutaneous nephrostomy tubes are in place and there are multiple s tents in place along the course of the left iliac and femoral vessels. There are no abnormal calcif ications overlying the urinary tracts. There are surgical clips in the right upper quadrant, consist ent with prior cholecystectomy. There are no acute osseous abnormalities. IMPRESSION: 1. Diffuse gaseous distension of the large and small bowel. Differential considerations include ad ynamic ileus or distal obstruction. CT can be performed for further evaluation. RPTAT: EE .Pernell Taylor MD, MD Date Time Electronically viewed and signed by .Pernell Taylor MD, MD on 09/08/2016 09:36 .P/
[2016-09-08] MEDS ORDERED: MIDAZOLAM 1 MG/ML 2 ML INJ ONE (11:55)
[2016-09-08] MEDS ORDERED: FENTAnyl 50 MCG/ML VIAL ONE (11:55)
[2016-09-08] MEDS ORDERED: FLUMAZENIL 0.5 MG INJ IV ONE (12:00)
[2016-09-08] MEDS: METOCLOPRAMIDE 10 MG INJ IV SCH ×2 (12:00→17:54)
--- NOTE | 2016-09-08 12:01 | PN ---
DATE: 09/08/2016 TIME: 0930 AM. SUBJECTIVE DATA: Denies any pain. Complains of nausea. The patient had multiple episodes of vomiting last night. No hematemesis reported. The patient remains on 2 pressors for blood pressure support. OBJECTIVE DATA: VITAL SIGNS: Temperature 97.5, pulse rate 100, respiratory rate 29, blood pressure 97/76, oxygen saturation 100% on 1 liter oxygen via nasal cannula. GENERAL: This is a 61-year-old -Luxembourger female lying in bed in no apparent distress. HEENT: Head normocephalic and atraumatic. Eyes: Anicteric sclerae. Conjunctivae clear. ENT: Nasal septum. Oral mucosa is dry. NECK: Supple. No JVD noticed. RESPIRATORY: Bilateral diminished breath sounds. Bilateral fine rales heard. No use of accessory muscles of respiration. CARDIAC: Regular rate and rhythm. S1 and S2 heard. ABDOMEN: Distended. Nontender. Bowel sounds hypoactive in all 4 quadrants. GENITOURINARY: Deferred. EXTREMITIES: No cyanosis, no clubbing. Bilateral lower extremity edema. Peripheral pulses palpable. NEUROLOGIC: The patient is awake and alert. Follows commands. Moves all 4 extremities. LABORATORY AND DIAGNOSTIC DATA: WBC 10.3, hemoglobin 13.1, hematocrit 39.9, platelet count 123. Sodium 134, potassium 3.7, chloride 111, carbon dioxide 30 , anion gap 11, BUN 37, creatinine 0.97, glucose 168, calcium 7.5. ASSESSMENT: 1. Shock. Most probably underlying septic shock. However, the etiology is unclear. Continue IV pressors to keep SBP at the desirable level. Continue empiric antibiotics. Will involve Infectious Disease on the case. Pancultures negative so far. 2. Sepsis with underlying septic shock. The source of infection is unclear. Blood cultures x2 have been negative. The patient had no urinalysis. Her urine studies pending as of now because of unclear reasons. The patient will have a repeat chest x-ray ordered today. 3. History of metastatic cervical cancer. Status post radiation and chemo. Currently, getting palliative chemotherapy. Palliative care already following the patient. 4. Hypochromic anemia. Etiology unclear. Status post 2 units of PRBC transfusion. The patient is being followed by Gastroenterology. Plan for colonoscopy. Continue proton pump inhibitors. 5. Bilateral nephrostomy tubes. Continue monitoring. 6. Hypertriglyceridemia. Will start the patient on fish oil when the patient is able to tolerate oral intake without any significant nausea or vomiting. 7. Cardiomyopathy with ejection fraction of 20%. Etiology unclear. Will monitor the patient for any acute onset of congestive heart failure exacerbation. 8. Possible underlying ileus. Continue p.r.n. antiemetics. We will also start the patient on prokinetics. Gastroenterology following the patient. 9. Fluid, electrolytes, and nutrition. Clear liquid diet as tolerated. 10. Deep venous thrombosis prophylaxis. Bilateral sequential compression devices. 11. Gastrointestinal prophylaxis. Proton pump inhibitors. PLAN: 1. Continue intensive care unit monitoring. 2. Will repeat a chest x-ray to evaluate for any new infiltrates. 3. Involve Infectious Disease on the case. The case was discussed with Dr. Fischer. Critical care time: 35 minutes. HOLA FISCHER MD ADDENDUM: Later during the day, I received a call from the patient's RN stating that the patient is deteriorating clinically. Patient had her colonoscopy done at the bedside in the intensive care unit. The patient started having dyspnea following the procedure. The patient was placed on 100% nonrebreather mask. The patient was noticed to be using her accessory muscles of respiration. The patient had to be started on a third vasopressor for blood pressure support. A stat cardiology and pulmonology consult was called. The patient was noticed to have a distended abdomen and hard abdomen following the colonoscopy. Hence possible bowel perforation was suspected. A stat general surgery consult was called. The patient was intubated because of worsening respiratory distress. Patient had a arterial line put in and the patient had a central line put in. The patient's critical condition and the poor prognosis was discussed with the patient's family by both the sloop captain and general surgeon. The patient's family wanted to keep the patient a full code. Stat x-ray of the abdomen has been ordered to evaluate for any underlying free air in the abdomen. The patient is unstable to be moved to radiology for a CT scan of the abdomen. Total critical care time today: Greater than 60 minutes. AM/NTS Conf#: [id number] DID#: [id number] MTDD
[2016-09-08] MEDS ORDERED: NALOXONE (0.4 MG/ML) INJ ONE (12:21)
[2016-09-08] MEDS ORDERED: FLUMAZENIL 0.5 MG INJ ONE (12:21)
--- NOTE | 2016-09-08 12:28 | CONS ---
Date/Time of Note Date/Time of Note DATE: 09/08/16 TIME: 12:24 Assessment/Plan Assessment/Plan Chief Complaint/Hosp Course 61 yo with metastatic cervical cancer s/p chemotherapy , immunotherapy and radiation. Pt has not had chemotherapy or immunotherapy in over a year. 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 It seems that the [facility] oncologist does believe this patient is a candidate for more therapy at this time. Per the families understanding, they are waiting for their mother's functional status to improve so she can try more treatment at [facility]. #Metastatic Cervical Cancer -at this time, patient has an extremely poor functional status and is in a critical state in the ICU. there is no oncologic treatment that can be given at this time while she is critically ill. Even if she is able to overcome this acute infection, it is unlikely she would be a candidate for more therapy. The family however, would like to discuss this with their primary oncologist once the patient is able to go home #Brain Mets -per the son, pt was told that she was not a candidate for post op brain radiation. #Sepsis - lactate> 5. this is likely secondary to the urine in the nephrostomy tubes -continue broad spectrum antibiotics -cont pressor support # Anemia -f/u EGD colonoscopy -Hg improving approximately 1 hour was spent at patient's bedside, with her family, and coordination of her care Problems: Consultation Date/Type/Reason Admit Date/Time September 05, 2016 at 16:23 Initial Consult Date 09/06/16 Type of Consultation: oncology Reason for Consultation metastatic cervical cancer Referring Provider: ONEIDA COLEMAN 24 HR Interval Summary Free Text/Dictation patient getting bedside EGD. still on pressors Exam/Review of Systems Vital Signs Vitals Vital Signs Date Time Temp Pulse Resp B/P Pulse Ox O2 Delivery O2 Flow Rate FiO2 09/08/16 10:00 107 29 97/76 100 Nasal Cannula 1.0 09/08/16 08:00 97.5 Intake and Output 09/07/16 09/07/16 09/08/16 15:00 23:00 07:00 Intake Total 1602.50 ml 2223.74 ml 1972.50 ml Output Total 320 ml 1750 ml Balance 1282.50 ml 2223.74 ml 222.50 ml Exam Constitutional: frail Psych: anxiety, depression Head: normocephalic Eyes: nl conjunctiva Neck: non-tender, supple Respiratory: clear to auscultation Gastrointestinal: soft Musculoskeletal: nl extremities to inspection Extremities: normal pulses Results Result Diagram: 09/08/16 0540 09/08/16 0540 Results 24 hrs Laboratory Tests Test 09/07/16 12:48 09/07/16 16:44 09/07/16 17:29 09/07/16 20:05 Bedside Glucose 127 113 Stool Occult Blood POSITIVE Vancomycin Level Trough 13.9 Test 09/07/16 20:56 09/08/16 01:09 09/08/16 05:40 09/08/16 05:56 Bedside Glucose 133 157 173 White Blood Count 10.3 Red Blood Count 4.50 Hemoglobin 13.1 Hematocrit 39.9 Mean Corpuscular Volume 88.7 Mean Corpuscular Hemoglobin 29.1 Mean Corpuscular Hemoglobin Concent 32.8 Red Cell Distribution Width 20.0 H Platelet Count 123 #L Mean Platelet Volume 12.3 H Neutrophils % 90.2 H Lymphocytes % 3.8 L Monocytes % 2.6 Eosinophils % 0.2 Basophils % 0.6 Nucleated Red Blood Cells % 0.6 H Neutrophils # 9.3 H Lymphocytes # 0.4 L Monocytes # 0.3 Eosinophils # 0.0 Basophils # 0.1 Nucleated Red Blood Cells # 0.1 H Sodium Level 134 L Potassium Level 3.7 Chloride Level 114 H Carbon Dioxide Level 13 L Anion Gap 11 Blood Urea Nitrogen 37 #H Creatinine 0.97 Glucose Level 168 Calcium Level 7.5 L Test 09/08/16 09:02 Bedside Glucose 161 Medications Medications Current Medications Acetaminophen (Tylenol Tab) 650 mg Q6H PRN PO PAIN LEVEL 1-3 OR FEVER; Start at 18:30 Acetaminophen/ Hydrocodone Bitart ([place] (5/325)) 1 tab Q6H PRN PO MODERATE PAIN LEVEL 4-6; Start 09/05/16 at 18:30 Morphine Sulfate (morphine) 2 mg Q4H PRN IV SEVERE PAIN LEVEL 7-10; Start 09/05 at 18:30 Docusate Sodium (Colace) 100 mg Q12H PRN PO CONSTIPATION; Start 09/05/16 at 18: 30 Magnesium Hydroxide (Milk Of Mag) 30 ml DAILY PRN PO CONSTIPATION; Start at 18:30 Sodium Biphosphate/ Sodium Phosphate (Fleet Enema) [address] CONSTIPATION; Start 09/05/16 at 18:30 Lorazepam 0.5 mg 0.5 mg Q6H PRN IV ANXIETY; Start 09/05/16 at 18:30 Sodium Chloride 1,000 ml @ 100 mls/hr Q10H IV Last administered on 09/08/16 11:46; Admin Dose 100 MLS/HR; Start 09/05/16 at 19:00 Piperacillin Sod/ Tazobactam Sod (Zosyn 2.25gm/ 50ml (Pmx)) 50 ml @ 100 mls/hr Q6 IVPB Last administered on 09/08/16 05:48; Admin Dose 100 MLS/HR; Start at 00:00 Vancomycin HCl (Vanco Iv Per Pharmacy) VANCOMYCIN PER PHARMACY NOTE XX ; Start 09/05/16 at 18:30 Hydralazine HCl (Apresoline) 10 mg Q6H PRN IV ELEVATED BLOOD PRESSURE; Start at 18:30 Nitroglycerin (Nitroglycerin (Sl Tab) 0.4 Mg) 1 tab Q5M PRN SL ANGINA; Start at 18:30 Insulin Aspart (Novolog Insulin Pen) NOVOLOG *MILD* ALGORI... Q4 SC Last administered on 09/08/16 09:05; Admin Dose 1 UNIT; Start 09/05/16 at 21:00 Cyanocobalamin (Vitamin B12) 2,500 mcg DAILY PO Last administered on 09/07/16 09:50; Admin Dose 2,500 MCG; Start 09/06/16 at 09:00 Miscellaneous Information 1 ea NOTE XX ; Start 09/05/16 at 19:00 Glucose (Glutose) 15 gm Q15M PRN PO DECREASED GLUCOSE; Start 09/05/16 at 19:00 Glucose (Glutose) 22.5 gm Q15M PRN PO DECREASED GLUCOSE; Start 09/05/16 at 19: 00 Dextrose (D50w Syringe) 25 ml Q15M PRN IV DECREASED GLUCOSE; Start 09/05/16 at 19:00 Dextrose (D50w Syringe) 50 ml Q15M PRN IV DECREASED GLUCOSE; Start 09/05/16 at 19:00 Glucagon (Glucagen) 1 mg Q15M PRN IM DECREASED GLUCOSE; Start 09/05/16 at 19:00 Glucose 15 gm 15 gm Q15M PRN BUCCAL DECREASED GLUCOSE; Start 09/05/16 at 19:00 Norepinephrine 16 mg/Dextrose 500 ml @ 0 mls/hr TITRATE IV Last administered on 09/08/16 04:17; Admin Dose 11.25 MLS/HR; Start 09/06/16 at 07:00 Vancomycin HCl/ Sodium Chloride (Vancocin/NS) 150 ml @ 75 mls/hr Q24H IVPB Last administered on 09/07/16 20:49; Admin Dose 75 MLS/HR; Start 09/06/16 at 20 :00 Trimethobenzamide HCl 200 mg 200 mg Q6H PRN IM NAUSEA AND/OR VOMITING; Start at 10:30 Ondansetron HCl/ Sodium Chloride (Zofran Inj/NS) 54 ml @ 216 mls/hr Q6H PRN IV NAUSEA AND/OR VOMITING Last administered on 09/07/16 17:27; Admin Dose 216 MLS/HR; Start 09/06/16 at 10:30 Metoclopramide HCl 5 mg 5 mg Q6 IV ; Start 09/08/16 at 12:00 Phenylephrine HCl/ Dextrose (Julio-Syneph/D5W) 500 ml @ 18.75 mls/ hr TITRATE IV ; Start 09/08/16 at 12:30 Pantoprazole (Protonix Iv) 40 mg BID@06,18 IV ; Start 09/08/16 at 18:00 MINOO SOTO M.D. September 08, 2016 12:28
[2016-09-08] MEDS ORDERED: PHENYLephrine 160 MG in DEXTROSE 5% 484 ML IV SCH (12:30)
[2016-09-08] MEDS ORDERED: BARIUM SULF 2% 450 ML BTL (BERRY SMOOTHIE) PO ONE (12:30)
--- NOTE | 2016-09-08 12:36 | RADRPT ---
PROCEDURE: XR Chest. CLINICAL INDICATION: Sepsis TECHNIQUE: Single AP view of the chest were obtained COMPARISON: 09/05/2016 FINDINGS: The heart and mediastinum are within normal limits. The pulmonary vasculature are mildly prominent. The aorta demonstrates atherosclerotic calcifications. There is development of bilateral perihilar interstitial opacities which is increased from prior exam without sury consolidation. There is no effusion or pneumothorax. Right chest port is stable terminating in the SVC. Degenerative changes are seen within the thoracic spine. There is no acute osseous abnormality. IMPRESSION: Perihilar interstitial opacities could represent developing inflammation or infection and this appea rs new from prior exam. RPTAT: AA .Kely Camp MD, Date Time Electronically viewed and signed by .Kely Camp MD, MD on 09/08/2016 12:36 .J/
[2016-09-08] MEDS ORDERED: DOBUTamine/D5W 1 MG/ML DRIP 250 ML ONE (12:59)
[2016-09-08] MEDS ORDERED: DOBUTamine/D5W 1 MG/ML DRIP 250 ML IV SCH (13:00)
[2016-09-08] MEDS ORDERED: LIDOCAINE 1% (MDV) 20 ML INJ ONE (13:13)
[2016-09-08] MEDS ORDERED: IOHEXOL 14.3 MG(I)/ML (ADULT) BTL PO ONE (13:30)
[2016-09-08] MEDS ORDERED: ALBUMIN HUMAN 25% 100 ML ONE (13:40)
[2016-09-08 13:56] LABS: ADD SCAN DIFF NO
[2016-09-08 13:58] LABS: ABNORMAL IP MESSAGE 1; HEMATOCRIT 33.1 % (37.0-47.0); HEMOGLOBIN 10.7 g/dl (12.0-16.0); MEAN CORPUSCULAR HEMOGLOBIN 29.2 pg (29.0-33.0); MEAN CORPUSCULAR HGB CONC 32.3 g/dl (32.0-37.0); MEAN CORPUSCULAR VOLUME 90.2 fl (82.0-101.0); MEAN PLATELET VOLUME 12.3 fl (7.4-10.4); PLATELET COUNT 132 10^3/UL (140-415); RED BLOOD COUNT 3.67 10^6/ul (4.20-5.40); RED CELL DISTRIBUTION WIDTH 19.6 % (11.5-14.5); WHITE BLOOD COUNT 9.2 10^3/ul (4.8-10.8)
[2016-09-08] MEDS ORDERED: SUCCINYLCHOLINE CHLORIDE 100 MG/5 ML SYG IV ONE (14:00)
[2016-09-08] MEDS ORDERED: ALBUMIN HUMAN 25% 100 ML IV ONE (14:00)
[2016-09-08] MEDS ORDERED: LIDOCAINE 100 MG SYRINGE ONE (14:00)
[2016-09-08] MEDS ORDERED: DIGOXIN 500 MCG INJ IV ONE (14:00)
[2016-09-08] MEDS ORDERED: ETOMIDATE 20 MG INJ ONE (14:00)
[2016-09-08] MEDS: VASOPRESSIN 60 UNIT in DEXTROSE 5% 57 ML IV SCH (14:06)
[2016-09-08] MEDS ORDERED: DOPamine-D5W 1.6 MG/ML 250 ML ONE (14:10)
[2016-09-08 14:23] LABS: BURR CELLS 1+; LYMPHOCYTES # 0.4 10^3/ul (0.8-2.9); MONOCYTE # 0.4 10^3/ul (0.3-0.9); NEUTROPHIL # 7.6 10^3/ul (1.6-7.5)
[2016-09-08] MEDS ORDERED: LACTATED RINGER'S 1,000 ML IV ONE ×2 (14:30→15:00)
[2016-09-08] MEDS ORDERED: DOPamine-D5W 1.6 MG/ML 250 ML IV SCH (14:30)
[2016-09-08 14:31] LABS: CK-MB 4.43 ng/ml (0.0-2.4)
[2016-09-08 14:40] LABS: TROPONIN-I 0.505 ng/ml (0.00-0.12)
[2016-09-08 15:08] LABS: Arterial Base Excess -17.4 mmol/L (-3.0-3); Arterial COHb 0.3 % (0.0-3.0); Arterial Fraction of Oxyhgb 98.8 % (93.0-99.0); Arterial HCO3 9.6 mmol/L (22.0-26.0); Arterial MetHb 0 % (0.0-1.5); MODE VENT - AC
[2016-09-08] MEDS: HYDROCORTISONE 100 MG INJ IV SCH ×2 (15:09→21:20)
[2016-09-08] MEDS: FENTAnyl (DRIP) 1000 mcg/100mL 100 ML IV SCH (15:37)
[2016-09-08] MEDS: metroNIDAZOLE 500 MG/NS (PMX) 100 ML IVPB SCH ×2 (15:59→21:21)
--- NOTE | 2016-09-08 16:10 | RADRPT ---
PROCEDURE: XR Chest. CLINICAL INDICATION: Intubation TECHNIQUE: Single portable view of the chest was obtained COMPARISON: Same day FINDINGS: There is a new endotracheal tube which terminates at the mid trachea at the level of T2. Gastric cat heter extends into the stomach. The heart, mediastinum, and lungs are otherwise unchanged from earli er the same day. IMPRESSION: Endotracheal tube terminates at the mid trachea and the gastric catheter extends into the stomach. The chest is otherwise unchanged from earlier the same date. RPTAT: AA .Kely Camp MD, MD Date Time Electronically viewed and signed by .Kely Camp MD, MD on 09/08/2016 16:10 .J/
--- NOTE | 2016-09-08 16:34 | RADRPT ---
PROCEDURE: US DVT. CLINICAL INDICATION: Bilateral lower extremity pain and swelling. TECHNIQUE: Multiple longitudinal and transverse images of the bilateral lower extremity veins were obtained with henriquez scale and color Doppler imaging. 2D grayscale measurements with compression, co mis Doppler flow, and augmentation was performed. The calf veins were interrogated as well. COMPARISON: No prior studies are available for comparison. FINDINGS: The right common femoral, superficial femoral and popliteal veins are normally compressible througho ut. Color flow demonstrates normal filling of the vessel. Normal waveforms are visualized and ther e is normal response to augmentation. The peroneal vein is not compressible. The left superficial femoral and popliteal veins. The common femoral has a a vascular stent and is n ot compressible. Color flow demonstrates normal filling of the vessel. Normal waveforms are visual ized and there is normal response to augmentation. The peroneal vein is not compressible. IMPRESSION: 1. No evidence of a deep vein thrombosis involving either lower extremity. 2. Left common femoral venous stent present. 3. Noncompressible perineal veins bilaterally suggesting thrombosis in the calf veins. RPTAT: [facility] Physician Kyung Date Time Electronically viewed and signed by Physician Kyung on 09/08/2016 16:34 /
--- NOTE | 2016-09-08 16:39 | CONS ---
DATE OF ADMISSION: 09/05/2016 DATE OF CONSULTATION: 09/08/2016 TYPE OF CONSULTATION: Pulmonary REASON FOR CONSULTATION: Septic shock, respiratory failure. HISTORY OF PRESENT ILLNESS: Briefly, this is a 61-year-old female with widely metastatic cervical c ancer with known brain mets with status post chemotherapy immunotherapy and radiation. It appears t hat the patient was initially admitted on the with generalized weakness and anemia and hypokale nini. At that point, the patient required pressors for her shock, which was thought to be septic in origin. Although not entirely clear, the patient underwent a colonoscopy earlier today and post col onoscopy she returned to the ICU with worsening shock and respiratory failure. I was called at that time to evaluate the patient who now is on 2 pressors and is impending respiratory failure with ane sthesia at bedside ready to intubate the patient. PAST MEDICAL HISTORY: As noted above. ALLERGIES: Levaquin. OUTPATIENT MEDICATIONS: 1. Pierson. 2. Colace. 3. Vitamin B. 4. Vitamin D. These are outpatient meds. INPATIENT MEDICATIONS: Please see MAR. PAST SURGICAL HISTORY: History of nephrectomy and bilateral nephrostomy tubes placed. SOCIAL HISTORY: No tobacco, alcohol or illicit drug use. FAMILY HISTORY: Unable to obtain. REVIEW OF SYSTEMS: Unable to obtain. PHYSICAL EXAMINATION: VITAL SIGNS: Blood pressure is 85/44 supported on 2 pressors. Heart rate is 114 to 130. Oxygen sa turation is on 100% on nonrebreather face mask. HEENT: Accessory muscle use noted with recruitment of sternocleidomastoid, mild jugular venous dist ention, no thyromegaly. CARDIOVASCULAR: Tachycardic, S1 and S2 with 2/6 systolic murmur with positive S3 gallop. CHEST: Bibasilar crackles heard bilaterally. ABDOMEN: Severely distended and tense. EXTREMITIES: Extreme bilateral lower extremity lymphedema. LABORATORY DATA: WBC is 10.3, hemoglobin is 13. Platelets 123, BUN is 37, creatinine is 0.97. Nazanin st x-ray shows cardiomegaly, mild pulmonary venous congestion and a Port-A-Cath in place. IMPRESSION: 1. Refractory septic shock with high concern for perforation post-colonoscopy. 2. Respiratory failure as a result of profound septic shock. 3. Cardiomyopathy with a low ejection fraction. 4. Metastatic cervical cancer. RECOMMENDATIONS: 1. IV fluid resuscitation. 2. Urgent intubation as being done by anesthesia. 3. Placement of a central line and A line. 4. Broad spectrum antibiotics. 5. Stat surgical consult. 6. Broad spectrum antibiotics. 7. Follow up cultures. 8. Serial lactates to be obtained with monitoring of end organ perfusion. 9. The patient's prognosis is extremely poor based on the aforementioned findings. Dictated By: REAL VASQUEZ MD NK/NTS Conf#: [id number] DID#: [id number] CC: ONEIDA COLEMAN; MAYRA CASTANEDA MD;*EndCC*
--- NOTE | 2016-09-08 16:42 | RADRPT ---
PROCEDURE: XR Abdomen, upright CLINICAL INDICATION: Rigid abdomen TECHNIQUE: An AP upright radiograph of the abdomen was submitted. COMPARISON: 09/07/2016 FINDINGS: Percutaneous nephrostomy catheters are again evident bilaterally. An inferior vena cava filter is a gain noted. Surgical lucille are again seen in the right upper quadrant of the abdomen. A right-si ded Port-A-Cath is evident and the tip projects to the superior vena cava. An NG tube has been satis factorily positioned. The bowel gas pattern reflects an ileus with gaseous distension of small bowel and colon. No free air is identified. No organomegaly or discrete mass is identified. No pathological calcification is identified. The osseous elements appear unremarkable. Foci of subsegmental atelectasis have developed at the left lung base and to a much lesser extent th e right lung base. IMPRESSION: 1. The bilateral percutaneous nephrostomy catheters and the inferior vena cava filter stable in pos itioning. There is again evidence of previous right upper quadrant abdominal surgery. 2. An NG tube has been satisfactorily placed and a right sided Port-A-Cath is now evident with the tip in the superior vena cava. 3. The bowel gas pattern reflects an ileus with no free air evident. 4. Development of subsegmental atelectasis at the left lung base and to a much lesser extent the ri ght lung base. Physician Doron Date Time Electronically viewed and signed by Physician Doron on 09/08/2016 16:42 /
--- NOTE | 2016-09-08 16:42 | OPR ---
DATE OF OPERATION: 09/08/2016 PROCEDURE: Right femoral triple lumen catheter insertion. INDICATION: Refractory shock and need for additional IV access. MEDICATIONS USED: Lidocaine 1% 4 mL locally. TECHNIQUE: Under strict sterile precautions, the right femoral vein was cannulated upon first attem pt via Seldinger technique, and the guidewire was subsequently removed. All ports were flushed with normal saline. The catheter was secured in place with 2-0 silk sutures, and sterile dressings were applied. COMPLICATIONS: None. Dictated By: REAL BETTS/EHSAN Conf#: [id number] DID#: [id number] CC: ONEIDA COLEMAN;*EndCC*
--- NOTE | 2016-09-08 17:01 | CONS ---
DATE OF ADMISSION: 09/05/2016 DATE OF CONSULTATION: 09/08/2016 TYPE OF CONSULTATION: Surgical. REFERRING PHYSICIAN AND PROVIDER: HOLA MONTES NP. CHIEF COMPLAINT: 1. Shock, probable sepsis. 2. Possible perforated viscus. 3. Metastatic cervical cancer. 4. Anemia. 5. Bowel obstruction history. 6. Distended bowel history. 7. Extensive ulceration of the descending colon. 8. Large mass occupying the ascending colon. HISTORY OF PRESENT ILLNESS: Jocelyn Dickinson is a 61-year-old female with multiple significant comorbid ities, most specifically metastatic cervical cancer to abdomen and brain metastatic cervical cancer with distant metastasis who has had last treatment at [facility]. Per reports, she appropriately refused radiation due to her significant risk category. She was admitted to [facility] ICU with signs of sepsis of unknown etiology but possibly urinary in nature since she has nephrostomy t ubes. She also had hemoccult positive stool and underwent colonoscopy today. She was already on pr essors but postprocedure she became more hypotensive and tachycardic and is currently on 3 max press ors. Abdomen has become more distended and tense. The patient is unable to go the CAT scan. There are no fevers or chills. No vomiting. Patient was intubated due to respiratory distress as well. There is no cough, seizure, blood per mouth or rectum currently. Stat surgical consult was guanaco gómez in the ICU for further guidance. PAST MEDICAL HISTORY: Metastatic cervical cancer with distant mets to brain. 1. Hemoccult positive stool. 2. Distended bowel previously with possible ileus versus obstruction. 3. Large ulceration in the descending colon. 4. Large mass in the descending colon. 5. Sepsis with shock. 6. Lactic acidosis. 7. Anemia. 8. Renal insufficiency and possible hydronephrosis. 9. Thrombocytopenia. 10. Bandemia. 11. Electrolyte abnormalities. 12. Hypocalcemia. 13. Significant hypoalbuminemia. 14. Elevated alkaline phosphatase. 15. History of small-bowel obstruction. 16. Depression history. 17. Decubitus ulcerations. 18. Ejection fraction of 20%. PAST SURGICAL HISTORY 1. Bilateral nephrostomy. 2. Brain tumor removal and craniotomy. 3. Cholecystectomy. 4. Port-A-Cath. 5. . 6. Colonoscopy. ALLERGIES: LEVOFLOXACIN. SOCIAL HISTORY: No current alcohol, drugs or tobacco. FAMILY HISTORY: Noncontributory. REVIEW OF SYSTEMS: A 12-point review of systems negative unless mentioned in the HPI. PHYSICAL EXAMINATION: VITAL SIGNS: Heart rate 130 to 160s, blood pressure 80/40 on 3 pressors. GENERAL: Intubated in extremis. HEENT: Pupils are sluggish. No scleral icterus. Mucous membranes are moist. NECK: JVD. No crepitus. Trachea midline. PULMONARY: Minimally coarse. CARDIAC: S1, S2 and tachycardic. ABDOMEN: Distended and taut. EXTREMITIES: Minimal edema. VASCULAR: Capillary refill is over 3 seconds. NEUROLOGIC: Not able to follow commands. LYMPHATICS: No inguinal lymphadenopathy. LABORATORY AND RADIOGRAPHIC: As per chart and HPI. ASSESSMENT AND PLAN: Jocelyn Dickinson is a 61-year-old female with multiple significant comorbid ities 1. Septic shock, probably multifactorial due to presenting infection plus possible viscus perforati on after colonoscopy. Patient has very poor prognosis at this point. She is not stable for any ruiz gical intervention. Even if surgery was possible due to metastatic cervical cancer and her oncologi c prognosis, surgery would not be the best option for her at that time either. 2. Continue medical management. I had a long discussion with multiple children and family members and explained to them the current situation. Their desire to proceed with aggressive medical treatm ent, as per her wishes. However, they do not want surgical intervention at this time. After that, I explained to them what if we find a perforated bowel and since we are not going to proceed with santos rgery do they want us to proceed with aggressive medical management and compression. At that point, the family seemed to agree not to proceed with compression if there is evidence of perforation. Af ter obtaining a KUB and chest x-ray, we will rediscuss this with the family members. The patient is too unstable for the CT exam. 2. History of metastatic cervical cancer, off treatment from [facility] at this time since they d eem it to be too dangerous for her as above. 3. Anemia, probably multifactorial with GI losses. Continue to monitor. 4. Significant hypoalbuminemia is multifactorial; however, she is not able to tolerate feeds at thi s time. 5. Probable hydronephrosis with obstruction. Currently with nephrostomy tubes. Continue tubes to d rainage and monitor closely. 6. Ulceration of the descending colon with mass, probably secondary to metastatic cancer as above. 7. Electrolyte abnormalities. Please correct with judicious fluid management and replacement as ne eded. 8. Decubitus ulceration. Continue offloading, local care and eventually, if patient survives throu gh this, nutritional optimization and vitamin replenishment. Thank you very much for consulting me in this patient's care. Dictated By: DANIEL GARCIA/EHSAN Conf#: [id number] DID#: [id number]
--- NOTE | 2016-09-08 17:21 | CONS ---
DATE OF ADMISSION: 09/05/2016 DATE OF CONSULTATION: 09/08/2016 TYPE OF CONSULTATION: Infectious Disease. REASON FOR CONSULTATION: Antibiotic management. HISTORY OF PRESENT ILLNESS: Jocelyn Dickinson is a 61-year-old female admitted on the with weakness and hypotension. Her past problems include: 1. History of cervical carcinoma with distant metastasis. Last radiation about 1 month ago apparisaiah diaz at the [facility]. 2. Bilateral nephrostomy tubes placed, apparently in 2013. Acutely, the patient began to experience weakness sometime the morning of the . She was brought in by EMS. She had elevated lactic acid of 5.2 was severely hypokalemic with potassium 2.1. Hemog lobin was 7.6 and 2 units of red blood cells were ordered. She received IV fluids and potassium in the emergency room. On admission, her white count was 9.5, H and H of 7.6 and 23.6, platelet count 244,000. BUN and creatinine 61/1.45, glucose of 121. PAST MEDICAL HISTORY: Operations as outlined. FAMILY HISTORY: Noncontributory. SOCIAL HISTORY: She does not smoke, drink or abuse drugs. ALLERGIES: LEVAQUIN. MEDICATIONS: Per chart. REVIEW OF SYSTEMS: As per HPI. PHYSICAL EXAMINATION: GENERAL: The patient is a chronically ill-appearing female who is awake, responsive, lethargic but arousable in no acute distress. VITAL SIGNS: Stable. She is afebrile. Blood pressure is fluctuating, but she is hypotensive. SKIN: Without generalized rash. HEENT: Within normal limits. NECK: Supple. LYMPH NODES: None palpable. CHEST: Decreased breath sounds at the bases. HEART: Without murmur or gallop. ABDOMEN: Soft, nontender without organosplenomegaly or masses. She has bilateral nephrostomy tubes in flanks. RECTAL AND GENITAL NERVES: Deferred. NEUROLOGICAL EVALUATION: No focal neurological abnormalities. IMAGING STUDIES: A chest x-ray showed no evidence of acute cardiopulmonary disease. She has a Port -A-Cath identified projecting over the right chest wall. HOSPITAL COURSE: The patient was brought into the intensive care unit. Blood cultures were negativ e. MRSA screen was negative. White count 9.2 today. BUN and creatinine 37/0.97. Lactic acid is s till elevated at 25.4. Troponin is 0.5, which is elevated. Stool occult blood is positive. She wa s seen in consultation by Dr. Durant on the . He noted anemia, diarrhea, rule out infectious ve rsus inflammatory, versus radiation-induced, history of cervical cancer, status post nephrostomy tub es bilaterally. She was seen by Dr. Christelle Anderson, Hematology/Oncology, and metastatic cervical CA status post chemotherapy immunotherapy radiation therapy. She had progressive disease that progress ed to the brain and she also had brain surgery. Dr. Anderson felt that she was in a poor functional st atus in a critical state in the ICU. There is no oncological treatment that can be given at this ti pa. She is not a candidate for post-brain radiation. PAST SURGICAL HISTORY: Operations as outlined. FAMILY HISTORY: Noncontributory. SOCIAL HISTORY: She does not smoke, drink or abuse drugs. ALLERGIES: NONE TO PENICILLIN, SULFA OR FOODS BUT SHE IS ALLERGIC TO LEVAQUIN. MEDICATIONS: Per chart. REVIEW OF SYSTEMS: As per HPI. NEUROLOGIC: The patient is a chronically ill-appearing female who is awake, responsive, in no acute distress. RECTAL AND GENITAL: Stable. She is afebrile. SKIN: Without generalized rash. HEENT: Within normal limits. NECK: Supple. LYMPH NODES: None palpable. CHEST: Decreased breath sounds at the bases. HEART: Without murmur or gallop. ABDOMEN: Soft, nontender, without organosplenomegaly or masses. EXTREMITIES: Without cyanosis, clubbing, or edema. RECTAL AND GENITAL: Deferred. NEUROLOGICAL: No focal neurological abnormality. IMPRESSION AND PLAN: The patient has most likely underlying septic shock. Etiology of which is unc lear. She is to have the nephrostomy tubes and she has a Port-A-Cath in place. Cultures so far are negative. The patient was started on pressors. She is on metronidazole, vancomycin and Zosyn. We will continue her on this regimen. I will dictate my findings to the hospitalist as well as to Dr. Durant's and Dr. Anderson. The patient did undergo an EGD. She now has an endotracheal tube in place and an NG tube and obviously is doing worse. She has perihilar interstitial opacities which could represent developing inflammation or infection. This appearance is new from prior exam on the . I will dictate my findings to the aforementioned physicians. Thank you for this consultation. Dictated By: RIDDHI DONOVAN MD, JD/EHSAN Conf#: [id number] DID#: [id number]
[2016-09-08] MEDS: SODIUM BICARBONATE (IV ADD) 150 MEQ in DEXTROSE 5% 850 ML IV SCH (17:54)
[2016-09-08] MEDS: PANTOPRAZOLE 40 MG INJ IV SCH (17:54)
--- NOTE | 2016-09-08 18:48 | GILP ---
DATE OF PROCEDURE: PROCEDURE: Colonoscopy with biopsies. BRIEF HISTORY AND INDICATIONS: The patient with stage IV cervical cancer with multiple metastatic sites including brain. Patient is being evaluated for severe anemia and persistent diarrhea. PREMEDICATION: Monitored anesthesia care by anesthesiologist. SURGEON: Sakshi Durant MD. TECHNIQUE: After informed consent with the patient is signed, its potential risks and complications as well as alternatives and after informed consent was obtained, the patient was placed in the left lateral decubitus, digital rectal examination was performed showing decreased sphincter tone. No other significant abnormalities. The colonoscope was introduced. PREPARATION: Marginal from the beginning of the examination, but with extensive lavage, we visualized the mucosa. There appears to be extrinsic compression collapsing the colon in spite of insufflation. The mucosa of the rectum appears rather unremarkable. This remains the case until we reached the area of what appears to be the sigmoid-descending colon approximately 60 cm from the anal verge, at which point extensive ulceration was noted and the area appears extremely atypical. There is a large "mass like " are that occludes the lumen, it appears atypical. Biopsies were obtained. The colonoscope could not be further advanced due to the presence of this occluding mass. Multiple biopsies were obtained of the ulcerated colon. The instrument was withdrawn reexamining the mucosa in detail. No additional abnormalities are noted. IMPRESSION: An area of extensive ulceration in the sigmoid-descending colon with very atypical large ? mass occupying the lumen. Multiple biopsies were obtained. PLAN: The patient will be continued on present regimen and urgent CT abdomen and pelvis with oral IV and rectal contrast will be requested. Further recommendations will depend on the patient's clinical course as well as review of pathology and imaging studies. Dictated By: SAKSHI DURANT MS/EHSAN Conf#: [id number] DID#: [id number] MTDD
[2016-09-08] MEDS: VANCOMYCIN 750 MG in SOD CHLORIDE 0.9% 150 ML IVPB SCH (20:26)
[2016-09-08 20:53] LABS: AADO2 Arterial 271.2 mmHg (7.0-24.0); Allen Test ACCEPTAB; Arterial Base Excess -13.6 mmol/L (-3.0-3); Arterial COHb 0.3 % (0.0-3.0); Arterial Fraction of Oxyhgb 98.8 % (93.0-99.0); Arterial HCO3 12.4 mmol/L (22.0-26.0); Arterial MetHb 0 % (0.0-1.5); MODE VENT - AC
[2016-09-08] MEDS ORDERED: NA BICARBONATE 8.4% 50 ML SYG IV STA (20:59)
[2016-09-08] MEDS ORDERED: NA BICARBONATE 8.4% 50 ML SYG ONE (21:06)
[2016-09-08 22:27] LABS: ADD UMIC YES; UR BILIRUBIN (Dip) NEGATIVE (NEGATIVE); UR BLOOD (Dip) TRACE (NEGATIVE); UR CLARITY CLEAR (CLEAR); UR COLOR LT. YELLOW (YELLOW); UR GLUCOSE (Dip) NEGATIVE (NEGATIVE); UR KETONES (Dip) NEGATIVE (NEGATIVE); UR LEUKOCYTE ESTERASE (Dip) 2+ (NEGATIVE); UR NITRITE (Dip) NEGATIVE (NEGATIVE); UR TOTAL PROTEIN (Dip) NEGATIVE (NEGATIVE); UR UROBILINOGEN (Dip) 0.2 E.U./dL (0.1-1.0)
[2016-09-08 22:34] LABS: UR BACTERIA RARE; URINE RBCS 0-2 /HPF (0)
[2016-09-08] MEDS ORDERED: IOHEXOL 300MG/ML 150 ML BTL ONE (22:54)
[2016-09-08] MEDS ORDERED: SOD CHLORIDE 0.9% 100 ML ONE (22:54)
[2016-09-08] MEDS ORDERED: IOHEXOL 300MG/ML 30 ML BTL ONE (22:54)
[2016-09-09] VITALS (105 sets, daily range): BP systolic 88–139; BP diastolic 59–94; PULSE 92–131; RESP 17–36
[2016-09-09] MEDS: INSULIN ASPART [NOVOLOG] 3 ML PEN SC SCH ×6 (01:00→21:00)
--- NOTE | 2016-09-09 01:17 | RADRPT ---
PROCEDURE: CT Abdomen and Pelvis with IV contrast. CLINICAL INDICATION: Distension. History of cervical neoplasm. Status post colonoscopy. TECHNIQUE: CT scan of the abdomen and pelvis was performed on a multidetector slice CT scanner. 80 cc of Omnipaque 300 intravenous contrast material was utilized. Rectal contrast consisting of 75 cc Omnipaque-300 dilated and 1500 cc of water was also in the lower. Sagittal and coronal reformatted images were obtained from the axial source images. Images were reviewed on a high-resolution PACS w orkstation. Exam CTDlvol = 21 mGy and DLP = 1263 Gy-cm. One of the following 3 dose reduction techni ques were used: Automated exposure control; adjustment of the mA and/or kV according to patient size ; or use of iterative reconstruction technique. COMPARISON: [facility] 09/08/2016. FINDINGS: There is a large mid to distal rectosigmoid colon soft tissue mass effacing the anterior wall of the bowel. There is a narrowed posterior channel of contrast material with a large heterogeneous 14.3 x 12.5 x 9.4 cm mass. There is extraluminal contrast and gas at the superior margin of the mass, ex tending within the center of the mass through irregular channels. There is contrast extravasation w ith free gas along the anterior aspect of the mass and within the pelvis. Small amount of contrast material surrounds the mass. There is probable pelvic free fluid, poorly from the mass. Th ere are multiple calcifications within the anterior superior aspect of the mass including a 1.7 cm c luster on the left and a 1.7 cm calcification on the right. Neither the uterus nor ovaries are disti nctly identified separate from the mass. The urinary bladder is also not distinctly visualized. The re is a 2.4 x 2.1 cm soft tissue mass the left anterior aspect of the aorta at the level of the aortic bifurcation. NG tube tip is in the stomach. There is dilatation of the visualized distal thoracic esophagus with an air-fluid level. Stomach is partially decompressed. There is diffuse small and large bowel dil atation proximal to the sigmoid colon mass. There is cecal wall thickening. The appendix is not di stinctly visualized. Mild lateral common femoral vein catheters are present with the right tip in the right external jonel c vein and the left tip in the IVC. Aorta is normal in caliber. The liver is enlarged and 17.8 cm and diffusely hypodense/fatty.. No intrahepatic lesions are identi fied. The gallbladder has been removed. There is no definite biliary ductal dilation. Pancreas is no rmal in appearance. The spleen is unremarkable.. There is a 1.8 cm left adrenal mass. There is bilateral renal scarring. Bilateral nephrostomy tubes are present. There is no hydronephr osis. Ureters are not dilated. The uterus and ovaries are unremarkable.. Limited evaluation lung bases demonstrates bilateral pleural effusions and left greater right atelec tasis. There are degenerative changes of the lumbar spine. There is mild diffuse subcutaneous infiltration. IMPRESSION: 1. Large pelvic mass involving the ventral aspect of the sigmoid colon with proximal bowel obstructi on. There is contrast extravasation from the colon into the mass with irregular gas and contrast ex tending into the mass. There is free contrast extravasation and free gas along the ventral aspect o f the mass consistent with a bowel perforation. The mass is heterogeneous and cannot be f rom the urinary bladder, cervix, uterus or ovaries. Appearance is consistent with the history of a cervical/uterine mass. The contrast extravasation at the superior aspect of the mass may be related to tumor invasion of the sigmoid colon versus perforation related to recent colonoscopy. Similarly , a component of pelvic hemorrhage cannot be excluded. 2. Bowel obstruction at the level of the mid sigmoid colon related to the above described mass. Di ffuse dilatation of the esophagus, small and large bowel to the level of the mass. Stomach is decom pressed by NG tube. 3. Left adrenal mass, suspicious for metastases. 4. Enlarged fatty liver. Status post cholecystectomy. 5. Bilateral nephrostomy catheters in the kidneys. Renal scarring. No hydronephrosis. 6. Bilateral pleural effusions and left greater than right atelectasis. 7. Diffuse subcutaneous infiltration. 8. Degenerative changes of the lumbar spine. 9. Bilateral femoral central venous lines Findings reported to ICU nurse Jen on 09/09/2016 1:03:12 AM. RPTAT: HMVK .Will Solitario MD, Date Time Electronically viewed and signed by .Will Solitario MD, on 09/09/2016 01:17 .K/
[2016-09-09] MEDS: VASOPRESSIN 60 UNIT in DEXTROSE 5% 57 ML IV SCH ×2 (02:00→14:00)
[2016-09-09] MEDS: PIPER-TAZO 2.25 GM (PMX) 50 ML IVPB SCH ×4 (02:21→18:02)
[2016-09-09] MEDS: METOCLOPRAMIDE 10 MG INJ IV SCH ×2 (02:21→05:29)
[2016-09-09] MEDS: SODIUM BICARBONATE (IV ADD) 150 MEQ in DEXTROSE 5% 850 ML IV SCH ×4 (03:01→22:44)
[2016-09-09 05:01] LABS: ADD SCAN DIFF NO
[2016-09-09 05:07] LABS: ABNORMAL IP MESSAGE 1; LYMPHOCYTES # 0.4 10^3/ul (0.8-2.9); LYMPHOCYTES % 2.4 % (15.0-51.0); NUCLEATED RED BLOOD CELLS% 0.4 /100WBC (0.0-0.0)
[2016-09-09 05:26] LABS: AADO2 Arterial 97.9 mmHg (7.0-24.0); Arterial Base Excess -5.8 mmol/L (-3.0-3); Arterial COHb 0.1 % (0.0-3.0); Arterial Fraction of Oxyhgb 98.6 % (93.0-99.0); Arterial HCO3 16.7 mmol/L (22.0-26.0); Arterial MetHb 0 % (0.0-1.5); Arterial Total Hemglobin 9.6 g/dl (12.0-18.0); MODE VENT - AC
[2016-09-09] MEDS: metroNIDAZOLE 500 MG/NS (PMX) 100 ML IVPB SCH ×3 (05:29→21:38)
[2016-09-09] MEDS: PANTOPRAZOLE 40 MG INJ IV SCH ×2 (05:29→18:02)
[2016-09-09] MEDS: HYDROCORTISONE 100 MG INJ IV SCH ×3 (05:29→21:35)
[2016-09-09 05:32] LABS: BASOPHIL # 0.1 10^3/ul (0.0-0.1); BASOPHILS % 0.3 % (0.0-2.0); HEMOGLOBIN 9.1 g/dl (12.0-16.0); MAGNESIUM 1.6 mg/dl (1.7-2.5); MEAN CORPUSCULAR HEMOGLOBIN 29.1 pg (29.0-33.0); MEAN CORPUSCULAR HGB CONC 32.5 g/dl (32.0-37.0); MEAN CORPUSCULAR VOLUME 89.5 fl (82.0-101.0); MEAN PLATELET VOLUME 12.3 fl (7.4-10.4); MONOCYTE # 0.4 10^3/ul (0.3-0.9); MONOCYTES % 2.3 % (0.0-11.0); NEUTROPHIL # 14.3 10^3/ul (1.6-7.5); NUCLEATED RED BLOOD CELLS # 0.1 10^3/ul (0.0-0.0); PHOSPHORUS 2.5 mg/dl (2.5-4.9); PLATELET COUNT 85 10^3/UL (140-415); RED BLOOD COUNT 3.13 10^6/ul (4.20-5.40); RED CELL DISTRIBUTION WIDTH 18.9 % (11.5-14.5); WHITE BLOOD COUNT 15.6 10^3/ul (4.8-10.8)
[2016-09-09 05:37] LABS: NEUTROPHILS % 91.7 % (39.0-77.0)
[2016-09-09 05:41] LABS: ALBUMIN 1.9 g/dl (3.3-4.9); ALBUMIN/GLOBULIN RATIO 0.86; BILIRUBIN,INDIRECT 0.2 mg/dl (0-1.1); BILIRUBIN,TOTAL 0.2 mg/dl (0.2-1.3); CALCIUM 7.5 mg/dl (8.4-10.2); CREATININE 0.93 mg/dl (0.44-1.00); TOTAL PROTEIN 4.1 g/dl (6.1-8.1)
[2016-09-09 05:51] LABS: POTASSIUM 2.7 mmol/L (3.5-5.1)
[2016-09-09] MEDS ORDERED: MAGNESIUM SULFATE 2 GM/50 ML 50 ML IVPB ONE (06:00)
[2016-09-09] MEDS: POTASSIUM CHLORIDE 250 ML IVPB SCH ×2 (06:21→09:56)
--- NOTE | 2016-09-09 07:31 | PN ---
DATE: 09/08/2016 REFERRING PHYSICIAN: ____ from anesthesia as well as Dr. Girish Blancas REASON FOR CONSULTATION: Cardiomyopathy. CHIEF COMPLAINT: Hypertension. HISTORY OF PRESENT ILLNESS: Thank you for this referral. History obtained from the patient's mostly family. The patient has multiple physicians Girish Blancas, Dr. Newman, ____ . This unfortun ate 59-year-old female with history of metastatic cervical cancer status post multiple radiation and chemo at [facility] who was brought in because of low blood pressure. The patient apparently fel l while she was at home. According to the family, her blood pressure was low and brought into the e mergency room and admitted to ICU, has been worked up being done. The patient noted to have severe lactic acidosis, was severely anemic and has been transfused. ____ abnormality with potassium of 2 .1 at the time of admission. She went for colonoscopy and apparently did well; however, was noted t o have abdominal distention and respiratory failure and respiratory distress and hypotension. Curre ntly on multiple pressors and we were kindly asked to ____ . Echocardiogram done yesterday also re ad by Dr. Barry showed severe LV dysfunction as well. PAST MEDICAL HISTORY: As above-mentioned, currently at the time the patient has never had any histo ry of cardiac disorder. No history of congestive heart failure as far as I can see. ALLERGIES: Levaquin. MEDICATIONS AT HOME: 1. Casco. 2. Colace. 3. Vitamins. SURGICAL HISTORY: 1. Bilateral nephrostomy tube placed in 2013. 2. Surgery for a tumor in the past in the abdomen. SOCIAL HISTORY: Does not smoke or drink, lives with the family. FAMILY HISTORY: No reported coronary artery disease. REVIEW OF SYSTEMS: As above-mentioned, otherwise all obtained ____ . PHYSICAL EXAMINATION: VITAL SIGNS: Temperature 97.5, heart rate of 135, blood pressure of 90/70, on multiple pressors. A ppears to be in respiratory distress. Respiratory rate is about 28, saturating 100% on oxygen. HEENT: normocephalic, atraumatic. Appears to be in respiratory distress. CARDIOVASCULAR: Tachycardic. PULMONARY: Minimal rhonchi at the base. GASTROINTESTINAL: Appeared to be distended and hard. EXTREMITIES: Diffuse lower extremity edema. NEUROLOGIC: Awake but drowsy and lethargic. LABORATORY: Sodium 134, potassium 3.7, BUN of 37, creatinine 0.97, glucose 168. WBC of 10.3, hemog lobin 13.1, platelet of 123. On admission, hemoglobin was 7.6. Chest x-ray done this afternoon showed persistent interstitial opacities that could represent redeve loping inflammation of infection, appeared to be new from previous one. DATA: EKG shows sinus tachycardia, ____ for LVH. ____ possible anterolateral infarct, age undete rmined. ASSESSMENT AND PLAN: 1. Acute hypoxemic hypercapnic respiratory failure. 2. Echocardiogram done yesterday showed ejection fraction of 20%. PA pressure was 28 mmHg. ASSESSMENT AND PLAN: 1. Hypoxemic hypercapnic respiratory failure. 2. Shock, probably cardiogenic as well as possibly septic. 3. Metastatic cervical cancer. 4. Severe anemia, status post colonoscopy. 5. Rule out abdominal perforation versus others. 6. History of bilateral nephrostomy tube. 7. Severe cardiomyopathy, etiology unclear. RECOMMENDATIONS: I have discussed with multiple physicians. Plan is to intubate the patient, appear ed to be very unstable. Pressors will be continued as needed. I have ordered a stat abdominal KUB to be done as well. Will check the cardiac enzymes including troponin as well. Continue with the U care. More than 40 minutes of critical care time was spent in management of this patient excluding procedu res. Dictated By: JIM BADI MD AV/NTS Conf#: [id number] DID#: [id number] CC: HOLA BLANCAS [employer]PER[employer];*EndCC*
--- NOTE | 2016-09-09 07:32 | PN ---
Date/Time of Note Date/Time of Note DATE: 09/09/16 TIME: 07:10 Assessment/Plan VTE Prophylaxis VTE Prophylaxis Intervention: SCD's Lines/Catheters IV [facility] Central Line Central line still needed: Yes Urinary Cath still in place: No Assessment/Plan Assessment/Plan Assessment: * Post colonoscopy perforated viscus * large pelvic mass invading colon wall site of perforation * contrast leakage to pelvic area * ?Contained perforaton as no evidence of generalized peritonitis * Sepsis * Metastatic cervical CA/Adrenal * History of cervical cancer * S/P nephrostomy tube bilateral * EF 20% Plan * continue present supportive management * Family was updated regarding findings and current condition and options Subjective 24 Hr Interval Summary Free Text/Dictation Course reviewed with nursing staff Patient developed hypotension and respiratory insufficiency post colonoscopy During colonoscopy the sigmoid-descending colon appeared ulcerated with an atypical mass obstructing the lumen. Biopsied She was intubated and stabilized. CT obtained with the following findings: 1. Large pelvic mass involving the ventral aspect of the sigmoid colon with proximal bowel obstruction. There is contrast extravasation from the colon into the mass with irregular gas and contrast extending into the mass. There is free contrast extravasation and free gas along the ventral aspect of the mass consistent with a bowel perforation. The mass is heterogeneous and cannot be from the urinary bladder, cervix, uterus or ovaries. Appearance is consistent with the history of a cervical/uterine mass. The contrast extravasation at the superior aspect of the mass may be related to tumor invasion of the sigmoid colon versus perforation related to recent colonoscopy. Similarly, a component of pelvic hemorrhage cannot be excluded. 2. Bowel obstruction at the level of the mid sigmoid colon related to the above described mass. Diffuse dilatation of the esophagus, small and large bowel to the level of the mass. Stomach is decompressed by NG tube. 3. Left adrenal mass, suspicious for metastases. 4. Enlarged fatty liver. Status post cholecystectomy. 5. Bilateral nephrostomy catheters in the kidneys. Renal scarring. No hydronephrosis. 6. Bilateral pleural effusions and left greater than right atelectasis. 7. Diffuse subcutaneous infiltration. 8. Degenerative changes of the lumbar spine. 9. Bilateral femoral central venous lines The patient remains intubated, her vitals signs have improved with decrease pressor dependency I called patients family and had "conference call" with 2 daughters and son on the line. I advised them of the CT findings of large pelvic tumor invading colon and with evidence of perforation and contrast extravasation. We reviewed options which at present appear limited to supportive care as she is an unacceptable surgical risk. I updated her current condition but emphasize the prognosis remais extremely poor given the situation I answered all their questions to their satisfaction and informed them that GI will follow closely although little else can be added at this time Exam/Review of Systems Vital Signs Vitals Vital Signs Date Time Temp Pulse Resp B/P Pulse Ox O2 Delivery O2 Flow Rate FiO2 09/09/16 06:00 93 22 121/87 100 09/09/16 05:55 35 09/09/16 04:00 97.2 09/09/16 03:30 Mechanical Ventilator 09/08/16 13:00 10.0 Intake and Output 09/08/16 09/08/16 09/09/16 15:00 23:00 07:00 Intake Total 274.215 ml 1132.28 ml 1728.7 ml Output Total 200 ml 540 ml 550 ml Balance 74.215 ml 592.28 ml 1178.7 ml Exam Constitutional: other (Sedated) Head: normocephalic Neck: supple Respiratory: clear to auscultation, other (intubated, ventilator dependent) Cardiovascular: regular rate and rhythm Gastrointestinal: distended (mildly), mass (pelvic fullness), soft ( surprisingly soft), No bowel sounds Musculoskeletal: nl extremities to inspection Results Result Diagram: 09/09/16 0430 09/09/16 0430 Results 24 hrs Laboratory Tests Test 09/08/16 09:02 09/08/16 09:30 09/08/16 12:36 09/08/16 13:50 Bedside Glucose 161 Urine Color LT. YELLOW Urine Clarity CLEAR Urine pH 6.0 Urine Specific [place] <=1.005 L Urine Ketones NEGATIVE Urine Nitrite NEGATIVE Urine Bilirubin NEGATIVE Urine Urobilinogen 0.2 E.U./dL Urine Leukocyte Esterase 2+ H Urine Microscopic RBC 0-2 Urine Microscopic WBC 10-25 Urine Bacteria RARE Urine Hemoglobin TRACE Urine Glucose NEGATIVE Urine Total Protein NEGATIVE Blood Gas Specimen Source Blood arterial Arterial Blood Date Drawn 09/08/2016 2:57:08 PM Arterial Blood pH (Temp corrected) 7.173 *L Arterial Blood pCO2 (Temp correct) 26.6 L Arterial Blood pO2 (Temp corrected) 414.4 H Arterial Blood HCO3 9.6 *L Arterial Blood Base Excess -17.4 L Arterial Blood Oxygen Saturation 99.1 H Que Test N/A Arterial Blood Gas Puncture Site A-Line Arterial Blood Carboxyhemoglobin 0.3 Arterial Blood Methemoglobin 0 Blood Gas A-a O2 Differential 272.0 H Oxyhemoglobin Percent 98.8 Total Hemoglobin 11.0 L Blood Gas Temperature 37.0 Blood Gas Respiration Rate 24.0 Blood Gas Actual Respiration Rate 29 Blood Gas Modality VENT - AC FiO2 100.0 Blood Gas Tidal Volume 400.0 Blood Gas Low PEEP Setting 5.0 Blood Gas Inspiratory Pressure 20.0 Blood Gas Critical Value Read Back GABBY IRAHETA Blood Gas Notified Whom Blood Gas Notified Time 09/08/2016 3:03:20 PM White Blood Count 9.2 Red Blood Count 3.67 L Hemoglobin 10.7 L Hematocrit 33.1 L Mean Corpuscular Volume 90.2 Mean Corpuscular Hemoglobin 29.2 Mean Corpuscular Hemoglobin Concent 32.3 Red Cell Distribution Width 19.6 H Platelet Count 132 L Mean Platelet Volume 12.3 H Neutrophils % 83.0 H Band Neutrophils % 9.0 H Lymphocytes % 4.0 L Monocytes % 4.0 Eosinophils % Basophils % Nucleated Red Blood Cells % Neutrophils # 7.6 H Lymphocytes # 0.4 L Monocytes # 0.4 Eosinophils # Basophils # Nucleated Red Blood Cells # Creatine Kinase 36 Creatine Kinase Index 12.3 Creatinine Kinase MB (Mass) 4.43 H Troponin I 0.505 *H Test 09/08/16 15:20 09/08/16 17:49 09/08/16 20:17 09/08/16 20:43 Lactic Acid Level 5.4 *H Bedside Glucose 208 187 Blood Gas Specimen Source Blood arterial Arterial Blood Date Drawn 09/08/2016 8:38:35 PM Arterial Blood pH (Temp corrected) 7.245 *L Arterial Blood pCO2 (Temp correct) 29.3 L Arterial Blood pO2 (Temp corrected) 412.5 H Arterial Blood HCO3 12.4 L Arterial Blood Base Excess -13.6 L Arterial Blood Oxygen Saturation 99.1 H Que Test ACCEPTAB Arterial Blood Gas Puncture Site A-Line Arterial Blood Carboxyhemoglobin 0.3 Arterial Blood Methemoglobin 0 Blood Gas A-a O2 Differential 271.2 H Oxyhemoglobin Percent 98.8 Total Hemoglobin 10.0 L Blood Gas Temperature 37.0 Blood Gas Respiration Rate 24.0 Blood Gas Actual Respiration Rate 33 Blood Gas Modality VENT - AC FiO2 100.0 Blood Gas Tidal Volume 400.0 Blood Gas Low PEEP Setting 5.0 Blood Gas Inspiratory Pressure 16.0 Blood Gas Critical Value Read Back ITZ PIERRE Blood Gas Notified Whom Blood Gas Notified Time 09/08/2016 8:52:53 PM Test 09/09/16 01:31 09/09/16 04:30 09/09/16 05:00 09/09/16 05:36 Bedside Glucose 110 135 White Blood Count 15.6 #H Red Blood Count 3.13 L Hemoglobin 9.1 L Hematocrit 28.0 L Mean Corpuscular Volume 89.5 Mean Corpuscular Hemoglobin 29.1 Mean Corpuscular Hemoglobin Concent 32.5 Red Cell Distribution Width 18.9 H Platelet Count 85 #L Mean Platelet Volume 12.3 H Neutrophils % 91.7 H Lymphocytes % 2.4 L Monocytes % 2.3 Eosinophils % 0.0 Basophils % 0.3 Nucleated Red Blood Cells % 0.4 H Neutrophils # 14.3 H Lymphocytes # 0.4 L Monocytes # 0.4 Eosinophils # 0.0 Basophils # 0.1 Nucleated Red Blood Cells # 0.1 H Sodium Level 124 L Potassium Level 2.7 *L Chloride Level 96 #L Carbon Dioxide Level 19 L Anion Gap 12 Blood Urea Nitrogen 28 H Creatinine 0.93 Glucose Level 136 Lactic Acid Level 6.9 *H Calcium Level 7.5 L Phosphorus Level 2.5 Magnesium Level 1.6 L Total Bilirubin 0.2 Direct Bilirubin 0.00 Indirect Bilirubin 0.2 Aspartate Amino Transf (AST/SGOT) 61 H Alanine Aminotransferase (ALT/SGPT) 78 H Alkaline Phosphatase 167 H Total Protein 4.1 L Albumin 1.9 L Globulin 2.20 Albumin/Globulin Ratio 0.86 Blood Gas Specimen Source Blood arterial Arterial Blood Date Drawn 09/09/2016 5:07:21 AM Arterial Blood pH (Temp corrected) 7.464 H Arterial Blood pCO2 (Temp correct) 23.8 L Arterial Blood pO2 (Temp corrected) 231.8 H Arterial Blood HCO3 16.7 L Arterial Blood Base Excess -5.8 L Arterial Blood Oxygen Saturation 98.7 H Que Test N/A Arterial Blood Gas Puncture Site A-Line Arterial Blood Carboxyhemoglobin 0.1 Arterial Blood Methemoglobin 0 Blood Gas A-a O2 Differential 97.9 H Oxyhemoglobin Percent 98.6 Total Hemoglobin 9.6 L Blood Gas Temperature 37.0 Blood Gas Respiration Rate 24.0 Blood Gas Modality VENT - AC FiO2 50.0 Blood Gas Tidal Volume 450.0 Blood Gas Low PEEP Setting 5.0 Blood Gas Inspiratory Pressure 26.0 Blood Gas Notified Whom RTR Blood Gas Notified Time 09/09/2016 5:26:39 AM Medications Medications Current Medications Acetaminophen (Tylenol Tab) 650 mg Q6H PRN PO PAIN LEVEL 1-3 OR FEVER; Start at 18:30 Acetaminophen/ Hydrocodone Bitart ([place] (5/325)) 1 tab Q6H PRN PO MODERATE PAIN LEVEL 4-6; Start 09/05/16 at 18:30 Morphine Sulfate (morphine) 2 mg Q4H PRN IV SEVERE PAIN LEVEL 7-10; Start 09/05 at 18:30 Docusate Sodium (Colace) 100 mg Q12H PRN PO CONSTIPATION; Start 09/05/16 at 18: 30 Magnesium Hydroxide (Milk Of Mag) 30 ml DAILY PRN PO CONSTIPATION; Start at 18:30 Sodium Biphosphate/ Sodium Phosphate (Fleet Enema) 133 ml DAILY PRN [place] CONSTIPATION; Start 09/05/16 at 18:30 Lorazepam 0.5 mg 0.5 mg Q6H PRN IV ANXIETY; Start 09/05/16 at 18:30 Piperacillin Sod/ Tazobactam Sod (Zosyn 2.25gm/ 50ml (Pmx)) 50 ml @ 100 mls/hr Q6 IVPB Last administered on 09/09/16 05:28; Admin Dose 100 MLS/HR; Start at 00:00 Vancomycin HCl (Vanco Iv Per Pharmacy) VANCOMYCIN PER PHARMACY NOTE XX ; Start 09/05/16 at 18:30 Hydralazine HCl (Apresoline) 10 mg Q6H PRN IV ELEVATED BLOOD PRESSURE; Start at 18:30 Nitroglycerin (Nitroglycerin (Sl Tab) 0.4 Mg) 1 tab Q5M PRN SL ANGINA; Start at 18:30 Insulin Aspart (Novolog Insulin Pen) NOVOLOG *MILD* ALGORI... Q4 SC Last administered on 09/08/16 20:47; Admin Dose 2 UNIT; Start 09/05/16 at 21:00 Cyanocobalamin (Vitamin B12) 2,500 mcg DAILY PO Last administered on 09/07/16 09:50; Admin Dose 2,500 MCG; Start 09/06/16 at 09:00 Miscellaneous Information 1 ea NOTE XX ; Start 09/05/16 at 19:00 Glucose (Glutose) 15 gm Q15M PRN PO DECREASED GLUCOSE; Start 09/05/16 at 19:00 Glucose (Glutose) 22.5 gm Q15M PRN PO DECREASED GLUCOSE; Start 09/05/16 at 19: 00 Dextrose (D50w Syringe) 25 ml Q15M PRN IV DECREASED GLUCOSE; Start 09/05/16 at 19:00 Dextrose (D50w Syringe) 50 ml Q15M PRN IV DECREASED GLUCOSE; Start 09/05/16 at 19:00 Glucagon (Glucagen) 1 mg Q15M PRN IM DECREASED GLUCOSE; Start 09/05/16 at 19:00 Glucose 15 gm 15 gm Q15M PRN BUCCAL DECREASED GLUCOSE; Start 09/05/16 at 19:00 Norepinephrine 16 mg/Dextrose 500 ml @ 0 mls/hr TITRATE IV Last administered on 09/09/16 05:44; Admin Dose 37.5 MLS/HR; Start 09/06/16 at 07:00 Vancomycin HCl/ Sodium Chloride (Vancocin/NS) 150 ml @ 75 mls/hr Q24H IVPB Last administered on 09/08/16 20:26; Admin Dose 75 MLS/HR; Start 09/06/16 at 20 :00 Trimethobenzamide HCl 200 mg 200 mg Q6H PRN IM NAUSEA AND/OR VOMITING; Start at 10:30 Ondansetron HCl/ Sodium Chloride (Zofran Inj/NS) 54 ml @ 216 mls/hr Q6H PRN IV NAUSEA AND/OR VOMITING Last administered on 09/07/16 17:27; Admin Dose 216 MLS/HR; Start 09/06/16 at 10:30 Metoclopramide HCl 5 mg 5 mg Q6 IV Last administered on 09/09/16 05:29; Admin Dose 5 MG; Start 09/08/16 at 12:00 Phenylephrine HCl/ Dextrose (Julio-Syneph/D5W) 500 ml @ 18.75 mls/ hr TITRATE IV Last administered on 09/08/16 13:35; Admin Dose 50.62 MLS/HR; Start 09/08/16 at 12:30 Pantoprazole 40 mg 40 mg BID@06,18 IV Last administered on 09/09/16 05:29; Admin Dose 40 MG; Start 09/08/16 at 18:00 Dobutamine HCl/ Dextrose 250 ml @ 9.75 mls/hr TITRATE IV ; Start 09/08/16 at 13 :00 Vasopressin/ Dextrose (Vasostrict/D5W) 60 ml @ 0 mls/hr Q12H IV Last administered on 09/08/16 14:06; Admin Dose 0 MLS/HR; Start 09/08/16 at 14:00 Hydrocortisone 100 mg 100 mg Q8 IV Last administered on 09/09/16 05:29; Admin Dose 100 MG; Start 09/08/16 at 14:00 Metronidazole 100 ml @ 100 mls/hr Q8 IVPB Last administered on 09/09/16 05:29 ; Admin Dose 100 MLS/HR; Start 09/08/16 at 14:00 Dopamine HCl/ Dextrose 250 ml @ 4.875 mls/ hr TITRATE IV ; Start 09/08/16 at 14 :30 Fentanyl 100 ml @ 5 mls/hr TITRATE IV Last administered on 09/08/16 15:37; Admin Dose 5 MLS/HR; Start 09/08/16 at 15:30 Sodium Bicarbonate 150 meq/Dextrose 1,000 ml @ 125 mls/hr Q8H IV Last administered on 09/09/16 03:01; Admin Dose 125 MLS/HR; Start 09/08/16 at 16:00 Potassium Chloride 250 ml @ 62.5 mls/hr Q4H IVPB Last administered on 06:21; Admin Dose 62.5 MLS/HR; Start 09/09/16 at 06:00; Stop 09/09/16 at 13 :59 Magnesium Sulfate (Magnesium Sulfate 2 Gm/50 ml) 50 ml @ 25 mls/hr ONCE ONCE IVPB Last administered on 09/09/16 06:26; Admin Dose 25 MLS/HR; Start at 06:00; Stop 09/09/16 at 07:59 SAKSHI MENA MD September 09, 2016 07:20
--- NOTE | 2016-09-09 07:44 | RADRPT ---
PROCEDURE: XR Chest. CLINICAL INDICATION: vent TECHNIQUE: Single frontal view of the chest was obtained. COMPARISON: Chest x-ray from 09/08/2016 FINDINGS: The tip of an Endotracheal tube is noted 3.6 cm above the sharri. An enteric tube is again noted in the stomach. A right chest wall Port-A-Cath is again noted. The heart and mediastinum are within normal limits. There is stable pulmonary vascular congestion. There is stable left basilar atelectasis. There is no significant pleural effusion or pneumothorax. IMPRESSION: No significant interval change. RPTAT: EE Physician Daniella Date Time Electronically viewed and signed by Physician Daniella on 09/09/2016 07:44 /
[2016-09-09 08:05] LABS: TROPONIN-I 0.491 ng/ml (0.00-0.12)
[2016-09-09 08:06] LABS: CK-MB 5.81 ng/ml (0.0-2.4)
[2016-09-09] MEDS: CYANOCOBALAMIN 500 MCG TAB PO SCH (08:51)
--- NOTE | 2016-09-09 09:14 | CONS ---
Date/Time of Note Date/Time of Note DATE: 09/09/16 TIME: 09:10 Assessment/Plan Assessment/Plan Additional Assessment/Plan Chest x-ray was reviewed from today which is showing endotracheal tube at an adequate level. Patchy bilateral alveolar infiltrates are present. Ventilator settings; AC of 24, tidal volume 400, PEEP of 5, 35% FiO2. Patient currently on fentanyl drip 50 mics per hour, Levophed 24 mics per minute. Next Assessment recommendations; 1. Patient admitted for respiratory failure due to severe sepsis 2. Widely metastatic cervical cancer with brain metastases. 3. History of nephrectomy and bilateral nephrostomy tube placement. 4. Profound shock. 5. Thrombocytopenia. Continue current supportive care. Prognosis is very poor. 35 minutes of critical care time was spent evaluating the patient. Consultation Date/Type/Reason Admit Date/Time September 05, 2016 at 16:23 Initial Consult Date 09/06/16 Type of Consultation: Pulmonary/critical care Referring Provider: ONEIDA COLEMAN 24 HR Interval Summary Free Text/Dictation Patient's condition is critical. Currently on high-dose pressor support with Levophed. Patient is sedated with fentanyl drip. Has remained hemodynamically stable. General exam; middle-aged woman, orally intubated, sedated. Currently in no distress. Exam/Review of Systems Vital Signs Vitals Vital Signs Date Time Temp Pulse Resp B/P Pulse Ox O2 Delivery O2 Flow Rate FiO2 09/09/16 07:15 106 24 117/74 100 09/09/16 05:55 35 09/09/16 04:00 97.2 09/09/16 03:30 Mechanical Ventilator 09/08/16 13:00 10.0 Intake and Output 09/08/16 09/08/16 09/09/16 15:00 23:00 07:00 Intake Total 274.215 ml 1132.28 ml 1905.5 ml Output Total 200 ml 540 ml 550 ml Balance 74.215 ml 592.28 ml 1355.5 ml Exam HEENT examination; supple neck, no JVD. No lymphadenopathy. Midline trachea. No thyromegaly. Orally intubated. Pupils are equal and reactive to light. Patient has fair dentition. Chest examination; diminished but clear vessel. S1-S2 audible, no murmurs. Regular rhythm. MediPort in right chest wall. Abdomen examination; soft, there is a well-healed lithotomy scar. Bowel sounds are absent. No organomegaly felt. Extremity exam; 2+ pitting edema in lower extremities bilaterally. 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 Results Result Diagram: 09/09/16 0430 09/09/16 0430 Results 24 hrs Laboratory Tests Test 09/08/16 09:30 09/08/16 12:36 09/08/16 13:50 09/08/16 15:20 Urine Color LT. YELLOW Urine Clarity CLEAR Urine pH 6.0 Urine Specific [place] <=1.005 L Urine Ketones NEGATIVE Urine Nitrite NEGATIVE Urine Bilirubin NEGATIVE Urine Urobilinogen 0.2 E.U./dL Urine Leukocyte Esterase 2+ H Urine Microscopic RBC 0-2 Urine Microscopic WBC 10-25 Urine Bacteria RARE Urine Hemoglobin TRACE Urine Glucose NEGATIVE Urine Total Protein NEGATIVE Blood Gas Specimen Source Blood arterial Arterial Blood Date Drawn 09/08/2016 2:57:08 PM Arterial Blood pH (Temp corrected) 7.173 *L Arterial Blood pCO2 (Temp correct) 26.6 L Arterial Blood pO2 (Temp corrected) 414.4 H Arterial Blood HCO3 9.6 *L Arterial Blood Base Excess -17.4 L Arterial Blood Oxygen Saturation 99.1 H Que Test N/A Arterial Blood Gas Puncture Site A-Line Arterial Blood Carboxyhemoglobin 0.3 Arterial Blood Methemoglobin 0 Blood Gas A-a O2 Differential 272.0 H Oxyhemoglobin Percent 98.8 Total Hemoglobin 11.0 L Blood Gas Temperature 37.0 Blood Gas Respiration Rate 24.0 Blood Gas Actual Respiration Rate 29 Blood Gas Modality VENT - AC FiO2 100.0 Blood Gas Tidal Volume 400.0 Blood Gas Low PEEP Setting 5.0 Blood Gas Inspiratory Pressure 20.0 Blood Gas Critical Value Read Back GABBY IRAHETA Blood Gas Notified Whom Blood Gas Notified Time 09/08/2016 3:03:20 PM White Blood Count 9.2 Red Blood Count 3.67 L Hemoglobin 10.7 L Hematocrit 33.1 L Mean Corpuscular Volume 90.2 Mean Corpuscular Hemoglobin 29.2 Mean Corpuscular Hemoglobin Concent 32.3 Red Cell Distribution Width 19.6 H Platelet Count 132 L Mean Platelet Volume 12.3 H Neutrophils % 83.0 H Band Neutrophils % 9.0 H Lymphocytes % 4.0 L Monocytes % 4.0 Eosinophils % Basophils % Nucleated Red Blood Cells % Neutrophils # 7.6 H Lymphocytes # 0.4 L Monocytes # 0.4 Eosinophils # Basophils # Nucleated Red Blood Cells # Creatine Kinase 36 Creatine Kinase Index 12.3 Creatinine Kinase MB (Mass) 4.43 H Troponin I 0.505 *H Lactic Acid Level 5.4 *H Test 09/08/16 17:49 09/08/16 20:17 09/08/16 20:43 09/09/16 01:31 Bedside Glucose 208 187 110 Blood Gas Specimen Source Blood arterial Arterial Blood Date Drawn 09/08/2016 8:38:35 PM Arterial Blood pH (Temp corrected) 7.245 *L Arterial Blood pCO2 (Temp correct) 29.3 L Arterial Blood pO2 (Temp corrected) 412.5 H Arterial Blood HCO3 12.4 L Arterial Blood Base Excess -13.6 L Arterial Blood Oxygen Saturation 99.1 H Que Test ACCEPTAB Arterial Blood Gas Puncture Site A-Line Arterial Blood Carboxyhemoglobin 0.3 Arterial Blood Methemoglobin 0 Blood Gas A-a O2 Differential 271.2 H Oxyhemoglobin Percent 98.8 Total Hemoglobin 10.0 L Blood Gas Temperature 37.0 Blood Gas Respiration Rate 24.0 Blood Gas Actual Respiration Rate 33 Blood Gas Modality VENT - AC FiO2 100.0 Blood Gas Tidal Volume 400.0 Blood Gas Low PEEP Setting 5.0 Blood Gas Inspiratory Pressure 16.0 Blood Gas Critical Value Read Back ITZ PIERRE Blood Gas Notified Whom MR Blood Gas Notified Time 09/08/2016 8:52:53 PM Test 09/09/16 04:30 09/09/16 04:45 09/09/16 05:00 09/09/16 05:36 White Blood Count 15.6 #H Red Blood Count 3.13 L Hemoglobin 9.1 L Hematocrit 28.0 L Mean Corpuscular Volume 89.5 Mean Corpuscular Hemoglobin 29.1 Mean Corpuscular Hemoglobin Concent 32.5 Red Cell Distribution Width 18.9 H Platelet Count 85 #L Mean Platelet Volume 12.3 H Neutrophils % 91.7 H Lymphocytes % 2.4 L Monocytes % 2.3 Eosinophils % 0.0 Basophils % 0.3 Nucleated Red Blood Cells % 0.4 H Neutrophils # 14.3 H Lymphocytes # 0.4 L Monocytes # 0.4 Eosinophils # 0.0 Basophils # 0.1 Nucleated Red Blood Cells # 0.1 H Sodium Level 124 L Potassium Level 2.7 *L Chloride Level 96 #L Carbon Dioxide Level 19 L Anion Gap 12 Blood Urea Nitrogen 28 H Creatinine 0.93 Glucose Level 136 Lactic Acid Level 6.9 *H Calcium Level 7.5 L Phosphorus Level 2.5 Magnesium Level 1.6 L Total Bilirubin 0.2 Direct Bilirubin 0.00 Indirect Bilirubin 0.2 Aspartate Amino Transf (AST/SGOT) 61 H Alanine Aminotransferase (ALT/SGPT) 78 H Alkaline Phosphatase 167 H Total Protein 4.1 L Albumin 1.9 L Globulin 2.20 Albumin/Globulin Ratio 0.86 Creatine Kinase 68 Creatine Kinase Index 8.5 Creatinine Kinase MB (Mass) 5.81 H Troponin I 0.491 *H Blood Gas Specimen Source Blood arterial Arterial Blood Date Drawn 09/09/2016 5:07:21 AM Arterial Blood pH (Temp corrected) 7.464 H Arterial Blood pCO2 (Temp correct) 23.8 L Arterial Blood pO2 (Temp corrected) 231.8 H Arterial Blood HCO3 16.7 L Arterial Blood Base Excess -5.8 L Arterial Blood Oxygen Saturation 98.7 H Que Test N/A Arterial Blood Gas Puncture Site A-Line Arterial Blood Carboxyhemoglobin 0.1 Arterial Blood Methemoglobin 0 Blood Gas A-a O2 Differential 97.9 H Oxyhemoglobin Percent 98.6 Total Hemoglobin 9.6 L Blood Gas Temperature 37.0 Blood Gas Respiration Rate 24.0 Blood Gas Modality VENT - AC FiO2 50.0 Blood Gas Tidal Volume 450.0 Blood Gas Low PEEP Setting 5.0 Blood Gas Inspiratory Pressure 26.0 Blood Gas Notified Whom RTR Blood Gas Notified Time 09/09/2016 5:26:39 AM Bedside Glucose 135 Test 09/09/16 08:48 Bedside Glucose 161 Medications Medications Current Medications Acetaminophen (Tylenol Tab) 650 mg Q6H PRN PO PAIN LEVEL 1-3 OR FEVER; Start at 18:30 Acetaminophen/ Hydrocodone Bitart (Horatio (5/325)) 1 tab Q6H PRN PO MODERATE PAIN LEVEL 4-6; Start 09/05/16 at 18:30 Morphine Sulfate (morphine) 2 mg Q4H PRN IV SEVERE PAIN LEVEL 7-10; Start 09/05 at 18:30 Docusate Sodium (Colace) 100 mg Q12H PRN PO CONSTIPATION; Start 09/05/16 at 18: 30 Magnesium Hydroxide (Milk Of Mag) 30 ml DAILY PRN PO CONSTIPATION; Start at 18:30 Sodium Biphosphate/ Sodium Phosphate (Fleet Enema) 133 ml DAILY PRN AL CONSTIPATION; Start 09/05/16 at 18:30 Lorazepam 0.5 mg 0.5 mg Q6H PRN IV ANXIETY; Start 09/05/16 at 18:30 Piperacillin Sod/ Tazobactam Sod (Zosyn 2.25gm/ 50ml (Pmx)) 50 ml @ 100 mls/hr Q6 IVPB Last administered on 09/09/16 05:28; Admin Dose 100 MLS/HR; Start at 00:00 Vancomycin HCl (Vanco Iv Per Pharmacy) VANCOMYCIN PER PHARMACY NOTE XX ; Start 09/05/16 at 18:30 Hydralazine HCl (Apresoline) 10 mg Q6H PRN IV ELEVATED BLOOD PRESSURE; Start at 18:30 Nitroglycerin (Nitroglycerin (Sl Tab) 0.4 Mg) 1 tab Q5M PRN SL ANGINA; Start at 18:30 Insulin Aspart (Novolog Insulin Pen) NOVOLOG *MILD* ALGORI... Q4 SC Last administered on 09/09/16 08:53; Admin Dose 1 UNIT; Start 09/05/16 at 21:00 Cyanocobalamin (Vitamin B12) 2,500 mcg DAILY PO Last administered on 09/07/16 09:50; Admin Dose 2,500 MCG; Start 09/06/16 at 09:00 Miscellaneous Information 1 ea NOTE XX ; Start 09/05/16 at 19:00 Glucose (Glutose) 15 gm Q15M PRN PO DECREASED GLUCOSE; Start 09/05/16 at 19:00 Glucose (Glutose) 22.5 gm Q15M PRN PO DECREASED GLUCOSE; Start 09/05/16 at 19: 00 Dextrose (D50w Syringe) 25 ml Q15M PRN IV DECREASED GLUCOSE; Start 09/05/16 at 19:00 Dextrose (D50w Syringe) 50 ml Q15M PRN IV DECREASED GLUCOSE; Start 09/05/16 at 19:00 Glucagon (Glucagen) 1 mg Q15M PRN IM DECREASED GLUCOSE; Start 09/05/16 at 19:00 Glucose 15 gm 15 gm Q15M PRN BUCCAL DECREASED GLUCOSE; Start 09/05/16 at 19:00 Norepinephrine 16 mg/Dextrose 500 ml @ 0 mls/hr TITRATE IV Last administered on 09/09/16 05:44; Admin Dose 37.5 MLS/HR; Start 09/06/16 at 07:00 Vancomycin HCl/ Sodium Chloride (Vancocin/NS) 150 ml @ 75 mls/hr Q24H IVPB Last administered on 09/08/16 20:26; Admin Dose 75 MLS/HR; Start 09/06/16 at 20 :00 Trimethobenzamide HCl 200 mg 200 mg Q6H PRN IM NAUSEA AND/OR VOMITING; Start at 10:30 Ondansetron HCl/ Sodium Chloride (Zofran Inj/NS) 54 ml @ 216 mls/hr Q6H PRN IV NAUSEA AND/OR VOMITING Last administered on 09/07/16 17:27; Admin Dose 216 MLS/HR; Start 09/06/16 at 10:30 Metoclopramide HCl 5 mg 5 mg Q6 IV Last administered on 09/09/16 05:29; Admin Dose 5 MG; Start 09/08/16 at 12:00 Phenylephrine HCl/ Dextrose (Julio-Syneph/D5W) 500 ml @ 18.75 mls/ hr TITRATE IV Last administered on 09/08/16 13:35; Admin Dose 50.62 MLS/HR; Start 09/08/16 at 12:30 Pantoprazole 40 mg 40 mg BID@06,18 IV Last administered on 09/09/16 05:29; Admin Dose 40 MG; Start 09/08/16 at 18:00 Dobutamine HCl/ Dextrose 250 ml @ 9.75 mls/hr TITRATE IV ; Start 09/08/16 at 13 :00 Vasopressin/ Dextrose (Vasostrict/D5W) 60 ml @ 0 mls/hr Q12H IV Last administered on 09/08/16 14:06; Admin Dose 0 MLS/HR; Start 09/08/16 at 14:00 Hydrocortisone 100 mg 100 mg Q8 IV Last administered on 09/09/16 05:29; Admin Dose 100 MG; Start 09/08/16 at 14:00 Metronidazole 100 ml @ 100 mls/hr Q8 IVPB Last administered on 09/09/16 05:29 ; Admin Dose 100 MLS/HR; Start 09/08/16 at 14:00 Dopamine HCl/ Dextrose 250 ml @ 4.875 mls/ hr TITRATE IV ; Start 09/08/16 at 14 :30 Fentanyl 100 ml @ 5 mls/hr TITRATE IV Last administered on 09/08/16 15:37; Admin Dose 5 MLS/HR; Start 09/08/16 at 15:30 Sodium Bicarbonate 150 meq/Dextrose 1,000 ml @ 125 mls/hr Q8H IV Last administered on 09/09/16 03:01; Admin Dose 125 MLS/HR; Start 09/08/16 at 16:00 Potassium Chloride (KCl 40 MEQ/250 ML NS) 250 ml @ 62.5 mls/hr Q4H IVPB Last administered on 09/09/16 06:21; Admin Dose 62.5 MLS/HR; Start 09/09/16 at 06:00 ; Stop 09/09/16 at 13:59 SKYLER ESTEVES September 09, 2016 09:14
[2016-09-09] MEDS: FENTAnyl (DRIP) 1000 mcg/100mL 100 ML IV SCH ×2 (10:00→20:33)
--- NOTE | 2016-09-09 10:12 | PN ---
DATE: 09/09/2016 PALLIATIVE CARE PROGRESS NOTE ASSESSMENT AND RECOMMENDATIONS: The patient is now on 1 pressor at this point. She required intuba tion yesterday post-procedure. Please refer to the dictated note by Dr. Durant and other studies to assess her GI tract post-procedure. Please refer to the extensive note done by Dr. Will rogers 09/09/2016, which essentially shows contrast in addition to evidence of widespread metastasis, con trast extravasation of the superior aspect of the mass may be related to tumor invasion or sigmoid c olon. Appearance is consistent with a history of cervical and uterine mass. There is contrast extr avasation from the colon into the mass with irregular gas and contrast extending into the mass. The re is free contrast extravasation and free gas along the ventral aspect of the mass consistent with bowel perforation. I believe Dr. Durant has been in contact with family members this morning. I wi ll set up another conference with them today. Frequent updates insofar as clinical course and any possible setbacks will be discussed with family members in detail. Recommendations at this jono e, not to discuss patient's code status, that will be addressed later if patient continues to deteri orate. Other issues from a palliative care standpoint have been addressed in my prior consultation. Prognosis is poor at this point and I have discussed with family members that this may be unfortuna tely the clinical course that she may continue. This was addressed with them yesterday 09/08/2016. Once again, strongly recommend not to discuss code status. Dictated By: MORIAH GARRIDO MD, LP/EHSAN Conf#: [id number] DID#: [id number]
--- NOTE | 2016-09-09 11:04 | CONS ---
DATE OF ADMISSION: 09/05/2016 DATE OF CONSULTATION: 09/05/2016 REFERRING PHYSICIAN: Alexander Briseno MD This is a post-dated note; patient was seen first on 09/04/2016. HISTORY OF PRESENT ILLNESS: This is a 61-year-old lady who carries a diagnosis of cervical cancer w ith widespread metastasis who presented to [facility], brought in by EMT. This pa tient was complaining of increasing nausea, vomiting, generalized malaise, nonbilious, nonbloody nohemi rrhea. By history, this lady was first diagnosed with cervical cancer in 2013. The entire history and physical was taken from patient's medical records and from speaking with the patient's children, son and daughter. She was initially diagnosed in 2013 with cervical cancer. Since that time, most of her care has been at [facility]. She has undergone radiation, chemo and immunotherapy. She h as had at least 1 bout of sepsis syndrome when she was admitted to [facility] approximately 1 year ago prior to this hospitalization. Two months ago she started becoming weak with generalized malai se and began a precipitous downhill course with weight loss. When she presented to [facility] lactic acid level was 5.2, hemoglobin is less than 8. She has been transfused while e is here. Patient is status post nephrostomy tubes bilaterally although her children have been ede y helpful, part of the past medical history is incomplete. The patient is critically ill, in the in tensive care unit. When I initially examined her, she was not on a ventilator and she was minimally communicative. MEDICATIONS: Please refer to reconciliation sheets. ALLERGIES: LEVOFLOXACIN. PAST MEDICAL HISTORY: As per history of present illness. SOCIAL HISTORY: Nonsmoker, nondrinker, lives with her family. FAMILY HISTORY: Her is . She has 3 children. She has 2 siblings, they do not live locally and both are unable to participate in decision making on her behalf and possibly not able t o understand the severity of her current medical condition. REVIEW OF SYSTEMS: Cannot be obtained. The patient is lethargic and noncommunicative. PHYSICAL EXAMINATION: VITAL SIGNS: Blood pressure 117/74, pulse 106, respirations 24, 100% saturation on 35% FIO2. GENERAL: Shows an emaciated appearing female who does not appear in any acute distress. HEENT: She is normocephalic and atraumatic. Anicteric, acyanotic on examination. CHEST: Inspiratory and expiratory rhonchi and rales in right lower lobe; left clear. COR: S1, S2, without S3, S4, murmur, gallop, rub. Normal rate, normal rhythm. ABDOMEN: On examination, abdomen is distended; active bowel sounds. NEUROLOGIC: Patient is currently intubated as compared to my first evaluation of her. LABORATORY DATA: Tests have been reviewed from a palliative care standpoint on 09/08; at that time, her white blood cell count was 9.2, and today is a white blood cell count of 15.6. Hemoglobin leve l on 09/08 was 10.7, hematocrit 9.1, platelet count 132, today is 85. Laboratories today show serum sodium 124, potassium 2.7, chloride 96, bicarbonate 19, BUN 28, creatinine 0.93. Lactic acid level 6.9. ASSESSMENT AND PLAN: From a palliative care standpoint, I have had a long discussion with the gladise doreen's 2 children, the son is an EMT and very much understands medically how serious his mother's curr ent medical condition is. The daughter is very much involved with her mother's health care and is e ducated, understands that she is critically ill also. They have been very helpful in giving me a de tailed past medical history and history of present illness; therefore, it will be her 3 children who will speak on her behalf; a third sibling lives on the [facility]. They have given me a background history and a social history of Ms. Dickinson at this time, which has been very helpful. They have osmani ar understanding of severity of her medical problems, their hope is that she is able to return to he r prior level of functioning; an acceptable quality of life would to be able to do all of her ADLs o n her own and to be pain free and hopefully gain weight once again, but they are realistic about her long-term prognosis. They are spiritual but not necessarily very catholic. There are no is sues with cultural preferences, so far communication has been good between the nursing staff and [facility] staff and family members are satisfied with delivery of communication. Past experiences have been reviewed in history of present illness. Estimated prognosis is to be determined. There are n o pain or physical symptoms that need to be addressed at this time. Psychosocial, social and spirit ual issues: Have been addressed with family members and are addressed as above. Ethical issues: T here are no surrogate issues at this time. Decision makers are the patient's children at this time. Code status is still FULL CODE and I have told family members we will not address at this time, bu t to follow her clinical course. Frequent family conferences will be scheduled. Dictated By: MORIAH GARRIDO MD LP/NTS Conf#: [id number] DID#: [id number] CC: Alexander Briseno MD;*EndCC*
--- NOTE | 2016-09-09 12:20 | PN ---
Date/Time of Note Date/Time of Note DATE: 09/09/16 TIME: 12:09 Assessment/Plan VTE Prophylaxis VTE Prophylaxis Intervention: SCD's Lines/Catheters IV C[facility]ter Type (from [facility]): Central Line Central line still needed: Yes Urinary Cath still in place: No Assessment/Plan Chief Complaint/Hosp Course ASSESSMENT: 1. Shock. Most probably underlying septic shock. Continue IV pressors to keep SBP at the desirable level. Continue empiric antibiotics. Will involve Infectious Disease on the case. Pancultures negative so far. 2. Sigmoid colon perforation. General surgery has been consulted, patient is not a candidate for any surgical intervention at this time secondary to her prognosis and septic shock. 3. History of metastatic cervical cancer. Status post radiation and chemo. Currently, getting palliative chemotherapy. Palliative care already following the patient. 4. Hypochromic anemia. Etiology unclear. Status post 2 units of PRBC transfusion. The patient is being followed by Gastroenterology. Status post colonoscopy. Continue proton pump inhibitors. 5. Bilateral nephrostomy tubes. Continue monitoring. 6. Acute respiratory failure. Pulmonology has been consulted, continue vent management 7. Cardiomyopathy with ejection fraction of 20%. Cardiology has been consulted 8. Possible underlying ileus. Continue p.r.n. antiemetics. Continue IV antibiotics. Gastroenterology following the patient. Deep venous thrombosis prophylaxis. Bilateral sequential compression devices. Gastrointestinal prophylaxis. Proton pump inhibitors. Prognosis: Guarded PLAN: 1. Continue intensive care unit monitoring. 2. Continue pressors to keep systolic blood pressure above 90 3. Palliative care consult Problems: Subjective 24 Hr Interval Summary Free Text/Dictation Patient remains intubated and on pressors Pressors: Levophed and epinephrine. Off vasopressin since this am Sedated Exam/Review of Systems Vital Signs Vitals Vital Signs Date Time Temp Pulse Resp B/P Pulse Ox O2 Delivery O2 Flow Rate FiO2 09/09/16 11:15 126 27 96/66 100 09/09/16 11:00 Mechanical Ventilator 09/09/16 08:00 50 09/09/16 08:00 98.8 09/08/16 13:00 10.0 Intake and Output 09/08/16 09/08/16 09/09/16 15:00 23:00 07:00 Intake Total 274.215 ml 1132.28 ml 1905.5 ml Output Total 200 ml 540 ml 550 ml Balance 74.215 ml 592.28 ml 1355.5 ml Exam General: The patient is intubated and sedated HEENT: Atraumatic, normocephalic. The pupils are equal sluggish to light Chest: Normal Lungs: Decreased breath sounds bilateral lower lung field with positive wheezing Heart: Normal S1-S2, tachycardic Abdomen: distended , hypoactive bowel sounds Extremities: Normal to inspection, +1 edema no cyanosis Neurologic: Minimal response to pain stimuli Results Result Diagram: 09/09/16 0430 09/09/16 0430 Results 24 hrs Laboratory Tests Test 09/08/16 12:36 09/08/16 13:50 09/08/16 15:20 09/08/16 17:49 Blood Gas Specimen Source Blood arterial Arterial Blood Date Drawn 09/08/2016 2:57:08 PM Arterial Blood pH (Temp corrected) 7.173 *L Arterial Blood pCO2 (Temp correct) 26.6 L Arterial Blood pO2 (Temp corrected) 414.4 H Arterial Blood HCO3 9.6 *L Arterial Blood Base Excess -17.4 L Arterial Blood Oxygen Saturation 99.1 H Que Test N/A Arterial Blood Gas Puncture Site A-Line Arterial Blood Carboxyhemoglobin 0.3 Arterial Blood Methemoglobin 0 Blood Gas A-a O2 Differential 272.0 H Oxyhemoglobin Percent 98.8 Total Hemoglobin 11.0 L Blood Gas Temperature 37.0 Blood Gas Respiration Rate 24.0 Blood Gas Actual Respiration Rate 29 Blood Gas Modality VENT - AC FiO2 100.0 Blood Gas Tidal Volume 400.0 Blood Gas Low PEEP Setting 5.0 Blood Gas Inspiratory Pressure 20.0 Blood Gas Critical Value Read Back GABBY IRAHETA Blood Gas Notified Whom Blood Gas Notified Time 09/08/2016 3:03:20 PM White Blood Count 9.2 Red Blood Count 3.67 L Hemoglobin 10.7 L Hematocrit 33.1 L Mean Corpuscular Volume 90.2 Mean Corpuscular Hemoglobin 29.2 Mean Corpuscular Hemoglobin Concent 32.3 Red Cell Distribution Width 19.6 H Platelet Count 132 L Mean Platelet Volume 12.3 H Neutrophils % 83.0 H Band Neutrophils % 9.0 H Lymphocytes % 4.0 L Monocytes % 4.0 Eosinophils % Basophils % Nucleated Red Blood Cells % Neutrophils # 7.6 H Lymphocytes # 0.4 L Monocytes # 0.4 Eosinophils # Basophils # Nucleated Red Blood Cells # Creatine Kinase 36 Creatine Kinase Index 12.3 Creatinine Kinase MB (Mass) 4.43 H Troponin I 0.505 *H Lactic Acid Level 5.4 *H Bedside Glucose 208 Test 09/08/16 20:17 09/08/16 20:43 09/09/16 01:31 09/09/16 04:30 Blood Gas Specimen Source Blood arterial Arterial Blood Date Drawn 09/08/2016 8:38:35 PM Arterial Blood pH (Temp corrected) 7.245 *L Arterial Blood pCO2 (Temp correct) 29.3 L Arterial Blood pO2 (Temp corrected) 412.5 H Arterial Blood HCO3 12.4 L Arterial Blood Base Excess -13.6 L Arterial Blood Oxygen Saturation 99.1 H Que Test ACCEPTAB Arterial Blood Gas Puncture Site A-Line Arterial Blood Carboxyhemoglobin 0.3 Arterial Blood Methemoglobin 0 Blood Gas A-a O2 Differential 271.2 H Oxyhemoglobin Percent 98.8 Total Hemoglobin 10.0 L Blood Gas Temperature 37.0 Blood Gas Respiration Rate 24.0 Blood Gas Actual Respiration Rate 33 Blood Gas Modality VENT - AC FiO2 100.0 Blood Gas Tidal Volume 400.0 Blood Gas Low PEEP Setting 5.0 Blood Gas Inspiratory Pressure 16.0 Blood Gas Critical Value Read Back ITZ PIERRE Blood Gas Notified Whom MR Blood Gas Notified Time 09/08/2016 8:52:53 PM Bedside Glucose 187 110 White Blood Count 15.6 #H Red Blood Count 3.13 L Hemoglobin 9.1 L Hematocrit 28.0 L Mean Corpuscular Volume 89.5 Mean Corpuscular Hemoglobin 29.1 Mean Corpuscular Hemoglobin Concent 32.5 Red Cell Distribution Width 18.9 H Platelet Count 85 #L Mean Platelet Volume 12.3 H Neutrophils % 91.7 H Lymphocytes % 2.4 L Monocytes % 2.3 Eosinophils % 0.0 Basophils % 0.3 Nucleated Red Blood Cells % 0.4 H Neutrophils # 14.3 H Lymphocytes # 0.4 L Monocytes # 0.4 Eosinophils # 0.0 Basophils # 0.1 Nucleated Red Blood Cells # 0.1 H Sodium Level 124 L Potassium Level 2.7 *L Chloride Level 96 #L Carbon Dioxide Level 19 L Anion Gap 12 Blood Urea Nitrogen 28 H Creatinine 0.93 Glucose Level 136 Lactic Acid Level 6.9 *H Calcium Level 7.5 L Phosphorus Level 2.5 Magnesium Level 1.6 L Total Bilirubin 0.2 Direct Bilirubin 0.00 Indirect Bilirubin 0.2 Aspartate Amino Transf (AST/SGOT) 61 H Alanine Aminotransferase (ALT/SGPT) 78 H Alkaline Phosphatase 167 H Total Protein 4.1 L Albumin 1.9 L Globulin 2.20 Albumin/Globulin Ratio 0.86 Test 09/09/16 04:45 09/09/16 05:00 09/09/16 05:36 09/09/16 08:48 Creatine Kinase 68 Creatine Kinase Index 8.5 Creatinine Kinase MB (Mass) 5.81 H Troponin I 0.491 *H Blood Gas Specimen Source Blood arterial Arterial Blood Date Drawn 09/09/2016 5:07:21 AM Arterial Blood pH (Temp corrected) 7.464 H Arterial Blood pCO2 (Temp correct) 23.8 L Arterial Blood pO2 (Temp corrected) 231.8 H Arterial Blood HCO3 16.7 L Arterial Blood Base Excess -5.8 L Arterial Blood Oxygen Saturation 98.7 H Que Test N/A Arterial Blood Gas Puncture Site A-Line Arterial Blood Carboxyhemoglobin 0.1 Arterial Blood Methemoglobin 0 Blood Gas A-a O2 Differential 97.9 H Oxyhemoglobin Percent 98.6 Total Hemoglobin 9.6 L Blood Gas Temperature 37.0 Blood Gas Respiration Rate 24.0 Blood Gas Modality VENT - AC FiO2 50.0 Blood Gas Tidal Volume 450.0 Blood Gas Low PEEP Setting 5.0 Blood Gas Inspiratory Pressure 26.0 Blood Gas Notified Whom RTR Blood Gas Notified Time 09/09/2016 5:26:39 AM Bedside Glucose 135 161 Medications Medications Current Medications Acetaminophen (Tylenol Tab) 650 mg Q6H PRN PO PAIN LEVEL 1-3 OR FEVER; Start at 18:30 Acetaminophen/ Hydrocodone Bitart (Bunn (5/325)) 1 tab Q6H PRN PO MODERATE PAIN LEVEL 4-6; Start 09/05/16 at 18:30 Morphine Sulfate (morphine) 2 mg Q4H PRN IV SEVERE PAIN LEVEL 7-10; Start 09/05 at 18:30 Docusate Sodium (Colace) 100 mg Q12H PRN PO CONSTIPATION; Start 09/05/16 at 18: 30 Magnesium Hydroxide (Milk Of Mag) 30 ml DAILY PRN PO CONSTIPATION; Start at 18:30 Sodium Biphosphate/ Sodium Phosphate (Fleet Enema) 133 ml DAILY PRN [place] CONSTIPATION; Start 09/05/16 at 18:30 Lorazepam 0.5 mg 0.5 mg Q6H PRN IV ANXIETY; Start 09/05/16 at 18:30 Piperacillin Sod/ Tazobactam Sod (Zosyn 2.25gm/ 50ml (Pmx)) 50 ml @ 100 mls/hr Q6 IVPB Last administered on 09/09/16 05:28; Admin Dose 100 MLS/HR; Start at 00:00 Vancomycin HCl (Vanco Iv Per Pharmacy) VANCOMYCIN PER PHARMACY NOTE XX ; Start 09/05/16 at 18:30 Hydralazine HCl (Apresoline) 10 mg Q6H PRN IV ELEVATED BLOOD PRESSURE; Start at 18:30 Nitroglycerin (Nitroglycerin (Sl Tab) 0.4 Mg) 1 tab Q5M PRN SL ANGINA; Start at 18:30 Insulin Aspart (Novolog Insulin Pen) NOVOLOG *MILD* ALGORI... Q4 SC Last administered on 09/09/16 08:53; Admin Dose 1 UNIT; Start 09/05/16 at 21:00 Miscellaneous Information 1 ea NOTE XX ; Start 09/05/16 at 19:00 Glucose (Glutose) 15 gm Q15M PRN PO DECREASED GLUCOSE; Start 09/05/16 at 19:00 Glucose (Glutose) 22.5 gm Q15M PRN PO DECREASED GLUCOSE; Start 09/05/16 at 19: 00 Dextrose (D50w Syringe) 25 ml Q15M PRN IV DECREASED GLUCOSE; Start 09/05/16 at 19:00 Dextrose (D50w Syringe) 50 ml Q15M PRN IV DECREASED GLUCOSE; Start 09/05/16 at 19:00 Glucagon (Glucagen) 1 mg Q15M PRN IM DECREASED GLUCOSE; Start 09/05/16 at 19:00 Glucose 15 gm 15 gm Q15M PRN BUCCAL DECREASED GLUCOSE; Start 09/05/16 at 19:00 Norepinephrine 16 mg/Dextrose 500 ml @ 0 mls/hr TITRATE IV Last administered on 09/09/16 05:44; Admin Dose 37.5 MLS/HR; Start 09/06/16 at 07:00 Vancomycin HCl 750 mg/Sodium Chloride 150 ml @ 75 mls/hr Q24H IVPB Last administered on 09/08/16 20:26; Admin Dose 75 MLS/HR; Start 09/06/16 at 20:00 Ondansetron HCl 8 mg/Sodium Chloride 54 ml @ 216 mls/hr Q6H PRN IV NAUSEA AND/ OR VOMITING Last administered on 09/07/16 17:27; Admin Dose 216 MLS/HR; Start 09/06/16 at 10:30 Phenylephrine HCl/ Dextrose (Julio-Syneph/D5W) 500 ml @ 18.75 mls/ hr TITRATE IV Last administered on 09/08/16 13:35; Admin Dose 50.62 MLS/HR; Start 09/08/16 at 12:30 Pantoprazole 40 mg 40 mg BID@06,18 IV Last administered on 09/09/16 05:29; Admin Dose 40 MG; Start 09/08/16 at 18:00 Dobutamine HCl/ Dextrose 250 ml @ 9.75 mls/hr TITRATE IV ; Start 09/08/16 at 13 :00 Vasopressin/ Dextrose (Vasostrict/D5W) 60 ml @ 0 mls/hr Q12H IV Last administered on 09/08/16 14:06; Admin Dose 0 MLS/HR; Start 09/08/16 at 14:00 Hydrocortisone 100 mg 100 mg Q8 IV Last administered on 09/09/16 05:29; Admin Dose 100 MG; Start 09/08/16 at 14:00 Metronidazole 100 ml @ 100 mls/hr Q8 IVPB Last administered on 09/09/16 05:29 ; Admin Dose 100 MLS/HR; Start 09/08/16 at 14:00 Dopamine HCl/ Dextrose 250 ml @ 4.875 mls/ hr TITRATE IV ; Start 09/08/16 at 14 :30 Fentanyl 100 ml @ 5 mls/hr TITRATE IV Last administered on 09/09/16 10:00; Admin Dose 5 MLS/HR; Start 09/08/16 at 15:30 Sodium Bicarbonate 150 meq/Dextrose 1,000 ml @ 125 mls/hr Q8H IV Last administered on 09/09/16 11:57; Admin Dose 125 MLS/HR; Start 09/08/16 at 16:00 Potassium Chloride (KCl 40 MEQ/250 ML NS) 250 ml @ 62.5 mls/hr Q4H IVPB Last administered on 09/09/16t 09:56; Admin Dose 62.5 MLS/HR; Start 09/09/16 at 06:00 ; Stop 09/09/16 at 13:59 VEENA DEL ANGEL MD September 09, 2016 12:20
--- NOTE | 2016-09-09 13:30 | PN ---
DATE: 09/09/2016 INFECTIOUS DISEASE PROGRESS NOTE SUBJECTIVE: The patient remains intubated on multiple pressors and bicarb drip. She is hypothermic and currently on a Shreyas Hugger. The pulse 121, respirations , blood pressure 91/66, saturation 100 on vent. INDWELLINGS: Endotracheal tube, NG tube, right chest Port-A-Cath, femoral triple lumen catheter, Fleming catheter. LABORATORY DATA: WBC 15.6, H and H 9.1 and 28, platelets 85, neutrophils 91.7. Lactic acid 6.9, BUN 28, creatinine 0.93. MICROBIOLOGY: Blood cultures remain negative. DIAGNOSTICS: CT of the pelvis and abdomen revealed large pelvic mass involving ventral aspect of sigmoid colon with proximal bowel obstruction, with contrast extravasation from the colon into the mass as well as contrast extravasation and free gas along with the ventral aspect of the mass consistent with a bowel perforation. ANTIMICROBIALS: 1. Flagyl. 2. Vancomycin. 3. Zosyn. PHYSICAL EXAMINATION: GENERAL: Chronically ill-appearing, elderly woman who is lying comfortably in bed. HEENT: Head: Atraumatic, normocephalic. Sclerae anicteric. Buccal mucosa dry. NECK: Supple, trachea midline. CHEST: Rise symmetrical. Breath sounds diminished. HEART: S1, S2. ABDOMEN: Distended, hypoactive bowel tones. EXTREMITIES: With bilateral edema. ASSESSMENT: 1. Severe sepsis with shock and multisystem organ failure. 2. Large pelvic mass with proximal sigmoid colon obstruction and evidence of perforation per CT of the abdomen. 3. Left adrenal mass, suspicious for metastasis. 4. Acute respiratory failure. 5. Urinary tract infection as per urinalysis. 6. Metastatic cervical cancer with brain metastasis. PLAN: We are going to keep patient on current antibiotics and add empiric antifungal coverage. Send urine for culture. Follow recommendations of consultants, overall prognosis guarded. Dictated By: BIN MITTAL CRYSTAL CALIBRATOR for RIDDHI PINK/EHSAN Conf#: [id number] DID#: [id number] MTDD
--- NOTE | 2016-09-09 13:54 | PN ---
DATE: 09/09/2016 CARDIOLOGY FOLLOWUP SUBJECTIVE: Discussed with multiple physicians ____ and discussed with Dr. Whatley last night as we ll. Discussed with the staff. Rhythm strip was reviewed. The patient remains in sinus tachycardia . She remains intubated on the vent. She is still on pressors, on Levophed now. Unable to obtain history from the patient. MEDICATIONS: Reviewed, which include: 1. Protonix IV. 2. Levophed. 3. Solu-Cortef. 4. Flagyl. 5. Zosyn. PHYSICAL EXAMINATION: VITAL SIGNS: Temperature 98.8, heart rate of 126, blood pressure 96/66, respiratory rate of 27. HEENT: Normocephalic, atraumatic. Status post intubation on the vent. CARDIOVASCULAR: Tachycardic. PULMONARY: With no wheezes heard. GASTROINTESTINAL: Distended. No rebound or guarding. It is still hard, but not as hard as yesterd ay's exam. EXTREMITIES: Diffuse lower extremity edema. NEUROLOGIC: Lethargic, but opens her eyes. Follows basic commands. PSYCHIATRIC: Appears to be calm. LABORATORY DATA: WBC of 15.6, hemoglobin 9.1, platelets of 85. Sodium 124, potassium 2.7, BUN of 2 8, creatinine 0.92, glucose of 136. Lactic acid 6.9. Total CK is 68, MB fraction of 5.8 with tropo ivette of 0.49. CT of the abdomen done shows large pelvic mass. There is contrast extravasation from the colon into the mass with irregular gas and contrast extending to the mass. There is free contrast extravasati on and free gas along the central aspect of the mass consistent with bowel perforation. Chest x-ray shows heart and mediastinum within normal limits. Stable pulmonary vascular congestion. ASSESSMENT AND PLAN: 1. Severe sepsis and septic shock. 2. Perforated bowel. 3. Severe cardiomyopathy. 4. Congestive heart failure, acute on chronic, secondary to systolic dysfunction, fluid overload an d shock. 5. Hypoxemic respiratory failure, status post intubation on the vent. 6. Anemia. 7. Metastatic cervical cancer. 8. Mildly abnormal troponin secondary to above and not true acute myocardial infarction. 9. Electrolyte abnormality, hypokalemia. 10. Hypomagnesemia. RECOMMENDATIONS: We will correct the electrolytes including potassium and magnesium. Continue the pressors as needed. Vent support will be continued. ____ antibiotic has been continued. The patie nt has already been evaluated by multiple consultants including surgery and was felt not to be a ruiz gical candidate. Prognosis is poor. Code status is still full code per family's request. We will hold off on any aspirin given her bleeding risk concern. We will try to ____ also for CVP monitorin g and adjust fluid based on that as well. Continue with the ICU care. More than 40 minutes of critical care time was spent with this patient excluding procedures. Dictated By: JIM ABDI MD AV/EHSAN Conf#: [id number] DID#: [id number] CC: ONEIDA COLEMAN; ;*Blaise*
[2016-09-09] MEDS: FLUCONAZOLE 100 MG/NS (PMX) 50 ML IVPB SCH (14:22)
--- NOTE | 2016-09-09 15:07 | RADRPT ---
Vent Rate: 128 bpm RR Interval: 0 msec IN Interval: 138 msec QRS Duration: 88 msec QT Interval: 306 msec QTC Interval: 446 msec P-R-T [place]: 27 - -18 - 156 degrees Sinus tachycardia Left ventricular hypertrophy with repolarization abnormality Inferior infarct , age undetermined Anterolateral infarct , age undetermined Abnormal ECG Electronically Signed By: Will Mcfarlane [id number]
--- NOTE | 2016-09-09 16:13 | CONS ---
Date/Time of Note Date/Time of Note DATE: 09/09/16 TIME: 16:05 Assessment/Plan Assessment/Plan Chief Complaint/Hosp Course 61 yo with metastatic cervical cancer s/p chemotherapy , immunotherapy and radiation. Pt has not had chemotherapy or immunotherapy in over a year. 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 It seems that the [facility] oncologist does believe this patient is a candidate for more therapy at this time. Pt underwent a colonoscopy and suffered from a perforated sigmoid colon . #Metastatic Cervical Cancer -at this time, patient has an extremely poor functional status and is in a critical state in the ICU. there is no oncologic treatment that can be given at this time while she is critically ill. -family still wants patient to be full code #Perforated Sigmoid colon -pt is not a surgical candidate #Brain Mets -per the son, pt was told that she was not a candidate for post op brain radiation. #Sepsis - lactate> 5. this is likely secondary to the urine in the nephrostomy tubes -continue broad spectrum antibiotics -cont pressor support # Anemia - secondary to metastatic disease and possible GI blood loss -continue to monitor Hg. If it drops below 8 will consider transfusion approximately 1 hour was spent at patient's bedside, with her family, and coordination of her care Problems: Consultation Date/Type/Reason Admit Date/Time September 05, 2016 at 16:23 Initial Consult Date 09/06/16 Type of Consultation: Hematology Reason for Consultation metastatic cervical cancer Referring Provider: ONEIDA COLEMAN 24 HR Interval Summary Free Text/Dictation pt had colonoscopy yesterday and unfortunately perforated his sigmoid colon. pt is on maximum pressor support and very lethargic Exam/Review of Systems Vital Signs Vitals Vital Signs Date Time Temp Pulse Resp B/P Pulse Ox O2 Delivery O2 Flow Rate FiO2 09/09/16 15:00 120 31 101/90 100 Mechanical Ventilator 09/09/16 12:00 98.5 09/09/16 11:10 35 09/08/16 13:00 10.0 Intake and Output 09/08/16 09/08/16 09/09/16 14:59 22:59 06:59 Intake Total 181.815 ml 1038.03 ml 1915.35 ml Output Total 200 ml 540 ml 550 ml Balance -18.185 ml 498.03 ml 1365.35 ml Exam Constitutional: frail Psych: no complaints Head: normocephalic Eyes: nl conjunctiva ENMT: nl external ears & nose Neck: non-tender, supple Respiratory: clear to auscultation, normal air movement Cardiovascular: regular rate and rhythm Gastrointestinal: soft Musculoskeletal: nl extremities to inspection, nl gait and stance Extremities: normal pulses Results Result Diagram: 09/09/16 0430 09/09/16 0430 Results 24 hrs Laboratory Tests Test 09/08/16 17:49 09/08/16 20:17 09/08/16 20:43 09/09/16 01:31 Bedside Glucose 208 187 110 Blood Gas Specimen Source Blood arterial Arterial Blood Date Drawn 09/08/2016 8:38:35 PM Arterial Blood pH (Temp corrected) 7.245 *L Arterial Blood pCO2 (Temp correct) 29.3 L Arterial Blood pO2 (Temp corrected) 412.5 H Arterial Blood HCO3 12.4 L Arterial Blood Base Excess -13.6 L Arterial Blood Oxygen Saturation 99.1 H Que Test ACCEPTAB Arterial Blood Gas Puncture Site A-Line Arterial Blood Carboxyhemoglobin 0.3 Arterial Blood Methemoglobin 0 Blood Gas A-a O2 Differential 271.2 H Oxyhemoglobin Percent 98.8 Total Hemoglobin 10.0 L Blood Gas Temperature 37.0 Blood Gas Respiration Rate 24.0 Blood Gas Actual Respiration Rate 33 Blood Gas Modality VENT - AC FiO2 100.0 Blood Gas Tidal Volume 400.0 Blood Gas Low PEEP Setting 5.0 Blood Gas Inspiratory Pressure 16.0 Blood Gas Critical Value Read Back ITZ PIERRE Blood Gas Notified Whom MR Blood Gas Notified Time 09/08/2016 8:52:53 PM Test 09/09/16 04:30 09/09/16 04:45 09/09/16 05:00 09/09/16 05:36 White Blood Count 15.6 #H Red Blood Count 3.13 L Hemoglobin 9.1 L Hematocrit 28.0 L Mean Corpuscular Volume 89.5 Mean Corpuscular Hemoglobin 29.1 Mean Corpuscular Hemoglobin Concent 32.5 Red Cell Distribution Width 18.9 H Platelet Count 85 #L Mean Platelet Volume 12.3 H Neutrophils % 91.7 H Lymphocytes % 2.4 L Monocytes % 2.3 Eosinophils % 0.0 Basophils % 0.3 Nucleated Red Blood Cells % 0.4 H Neutrophils # 14.3 H Lymphocytes # 0.4 L Monocytes # 0.4 Eosinophils # 0.0 Basophils # 0.1 Nucleated Red Blood Cells # 0.1 H Sodium Level 124 L Potassium Level 2.7 *L Chloride Level 96 #L Carbon Dioxide Level 19 L Anion Gap 12 Blood Urea Nitrogen 28 H Creatinine 0.93 Glucose Level 136 Lactic Acid Level 6.9 *H Calcium Level 7.5 L Phosphorus Level 2.5 Magnesium Level 1.6 L Total Bilirubin 0.2 Direct Bilirubin 0.00 Indirect Bilirubin 0.2 Aspartate Amino Transf (AST/SGOT) 61 H Alanine Aminotransferase (ALT/SGPT) 78 H Alkaline Phosphatase 167 H Total Protein 4.1 L Albumin 1.9 L Globulin 2.20 Albumin/Globulin Ratio 0.86 Creatine Kinase 68 Creatine Kinase Index 8.5 Creatinine Kinase MB (Mass) 5.81 H Troponin I 0.491 *H Blood Gas Specimen Source Blood arterial Arterial Blood Date Drawn 09/09/2016 5:07:21 AM Arterial Blood pH (Temp corrected) 7.464 H Arterial Blood pCO2 (Temp correct) 23.8 L Arterial Blood pO2 (Temp corrected) 231.8 H Arterial Blood HCO3 16.7 L Arterial Blood Base Excess -5.8 L Arterial Blood Oxygen Saturation 98.7 H Que Test N/A Arterial Blood Gas Puncture Site A-Line Arterial Blood Carboxyhemoglobin 0.1 Arterial Blood Methemoglobin 0 Blood Gas A-a O2 Differential 97.9 H Oxyhemoglobin Percent 98.6 Total Hemoglobin 9.6 L Blood Gas Temperature 37.0 Blood Gas Respiration Rate 24.0 Blood Gas Modality VENT - AC FiO2 50.0 Blood Gas Tidal Volume 450.0 Blood Gas Low PEEP Setting 5.0 Blood Gas Inspiratory Pressure 26.0 Blood Gas Notified Whom RTR Blood Gas Notified Time 09/09/2016 5:26:39 AM Bedside Glucose 135 Test 09/09/16 08:48 09/09/16 12:11 Bedside Glucose 161 133 Medications Medications Current Medications Acetaminophen (Tylenol Tab) 650 mg Q6H PRN PO PAIN LEVEL 1-3 OR FEVER; Start at 18:30 Acetaminophen/ Hydrocodone Bitart ([place] (5/325)) 1 tab Q6H PRN PO MODERATE PAIN LEVEL 4-6; Start 09/05/16 at 18:30 Morphine Sulfate (morphine) 2 mg Q4H PRN IV SEVERE PAIN LEVEL 7-10; Start 09/05 at 18:30 Docusate Sodium (Colace) 100 mg Q12H PRN PO CONSTIPATION; Start 09/05/16 at 18: 30 Magnesium Hydroxide (Milk Of Mag) 30 ml DAILY PRN PO CONSTIPATION; Start at 18:30 Sodium Biphosphate/ Sodium Phosphate (Fleet Enema) 133 ml DAILY PRN NE CONSTIPATION; Start 09/05/16 at 18:30 Lorazepam 0.5 mg 0.5 mg Q6H PRN IV ANXIETY; Start 09/05/16 at 18:30 Piperacillin Sod/ Tazobactam Sod (Zosyn 2.25gm/ 50ml (Pmx)) 50 ml @ 100 mls/hr Q6 IVPB Last administered on 09/09/16 12:12; Admin Dose 100 MLS/HR; Start at 00:00 Vancomycin HCl (Vanco Iv Per Pharmacy) VANCOMYCIN PER PHARMACY NOTE XX ; Start 09/05/16 at 18:30 Hydralazine HCl (Apresoline) 10 mg Q6H PRN IV ELEVATED BLOOD PRESSURE; Start at 18:30 Nitroglycerin (Nitroglycerin (Sl Tab) 0.4 Mg) 1 tab Q5M PRN SL ANGINA; Start at 18:30 Insulin Aspart (Novolog Insulin Pen) NOVOLOG *MILD* ALGORI... Q4 SC Last administered on 09/09/16 08:53; Admin Dose 1 UNIT; Start 09/05/16 at 21:00 Miscellaneous Information 1 ea NOTE XX ; Start 09/05/16 at 19:00 Glucose (Glutose) 15 gm Q15M PRN PO DECREASED GLUCOSE; Start 09/05/16 at 19:00 Glucose (Glutose) 22.5 gm Q15M PRN PO DECREASED GLUCOSE; Start 09/05/16 at 19: 00 Dextrose (D50w Syringe) 25 ml Q15M PRN IV DECREASED GLUCOSE; Start 09/05/16 at 19:00 Dextrose (D50w Syringe) 50 ml Q15M PRN IV DECREASED GLUCOSE; Start 09/05/16 at 19:00 Glucagon (Glucagen) 1 mg Q15M PRN IM DECREASED GLUCOSE; Start 09/05/16 at 19:00 Glucose 15 gm 15 gm Q15M PRN BUCCAL DECREASED GLUCOSE; Start 09/05/16 at 19:00 Norepinephrine 16 mg/Dextrose 500 ml @ 0 mls/hr TITRATE IV Last administered on 09/09/16 14:22; Admin Dose 52.5 MLS/HR; Start 09/06/16 at 07:00 Vancomycin HCl 750 mg/Sodium Chloride 150 ml @ 75 mls/hr Q24H IVPB Last administered on 09/08/16 20:26; Admin Dose 75 MLS/HR; Start 09/06/16 at 20:00 Ondansetron HCl 8 mg/Sodium Chloride 54 ml @ 216 mls/hr Q6H PRN IV NAUSEA AND/ OR VOMITING Last administered on 09/07/16 17:27; Admin Dose 216 MLS/HR; Start 09/06/16 at 10:30 Phenylephrine HCl/ Dextrose (Julio-Syneph/D5W) 500 ml @ 18.75 mls/ hr TITRATE IV Last administered on 09/08/16 13:35; Admin Dose 50.62 MLS/HR; Start 09/08/16 at 12:30 Pantoprazole 40 mg 40 mg BID@06,18 IV Last administered on 09/09/16 05:29; Admin Dose 40 MG; Start 09/08/16 at 18:00 Dobutamine HCl/ Dextrose 250 ml @ 9.75 mls/hr TITRATE IV ; Start 09/08/16 at 13 :00 Vasopressin/ Dextrose (Vasostrict/D5W) 60 ml @ 0 mls/hr Q12H IV Last administered on 09/08/16 14:06; Admin Dose 0 MLS/HR; Start 09/08/16 at 14:00 Hydrocortisone 100 mg 100 mg Q8 IV Last administered on 09/09/16 14:22; Admin Dose 100 MG; Start 09/08/16 at 14:00 Metronidazole 100 ml @ 100 mls/hr Q8 IVPB Last administered on 09/09/16 14:22 ; Admin Dose 100 MLS/HR; Start 09/08/16 at 14:00 Dopamine HCl/ Dextrose 250 ml @ 4.875 mls/ hr TITRATE IV ; Start 09/08/16 at 14 :30 Fentanyl 100 ml @ 5 mls/hr TITRATE IV Last administered on 5/30/17at 10:00; Admin Dose 5 MLS/HR; Start 09/08/16 at 15:30 Sodium Bicarbonate 150 meq/Dextrose 1,000 ml @ 125 mls/hr Q8H IV Last administered on 09/09/16 11:57; Admin Dose 125 MLS/HR; Start 09/08/16 at 16:00 Fluconazole/ Sodium Chloride (Diflucan 100 Mg/ NS (Pmx)) 50 ml @ 50 mls/hr Q24H IVPB Last administered on 09/09/16 14:22; Admin Dose 50 MLS/HR; Start at 14:30 MINOO SOTO M.D. September 09, 2016 16:13
[2016-09-09] MEDS: VANCOMYCIN 750 MG in SOD CHLORIDE 0.9% 150 ML IVPB SCH (20:05)
[2016-09-10] VITALS (108 sets, daily range): BP systolic 72–140; BP diastolic 54–92; PULSE 97–113; RESP 13–32; Ht 167.6 cm; Wt 98.3 kg
[2016-09-10] MEDS: PIPER-TAZO 2.25 GM (PMX) 50 ML IVPB SCH ×4 (00:59→17:09)
[2016-09-10] MEDS: INSULIN ASPART [NOVOLOG] 3 ML PEN SC SCH ×6 (01:14→21:00)
[2016-09-10] MEDS: VASOPRESSIN 60 UNIT in DEXTROSE 5% 57 ML IV SCH (02:00)
[2016-09-10 04:41] LABS: ADD SCAN DIFF NO
[2016-09-10 04:45] LABS: ABNORMAL IP MESSAGE 1; BASOPHILS % 0.2 % (0.0-2.0); HEMATOCRIT 26.7 % (37.0-47.0); HEMOGLOBIN 9.1 g/dl (12.0-16.0); LYMPHOCYTES # 0.3 10^3/ul (0.8-2.9); LYMPHOCYTES % 2.2 % (15.0-51.0); MEAN CORPUSCULAR HEMOGLOBIN 29.4 pg (29.0-33.0); MEAN CORPUSCULAR HGB CONC 34.1 g/dl (32.0-37.0); MEAN CORPUSCULAR VOLUME 86.4 fl (82.0-101.0); MEAN PLATELET VOLUME 12.9 fl (7.4-10.4); MONOCYTE # 0.2 10^3/ul (0.3-0.9); MONOCYTES % 1.7 % (0.0-11.0); NEUTROPHIL # 12.9 10^3/ul (1.6-7.5); NUCLEATED RED BLOOD CELLS # 0.1 10^3/ul (0.0-0.0); NUCLEATED RED BLOOD CELLS% 0.4 /100WBC (0.0-0.0); RED BLOOD COUNT 3.09 10^6/ul (4.20-5.40); RED CELL DISTRIBUTION WIDTH 18.6 % (11.5-14.5); WHITE BLOOD COUNT 13.8 10^3/ul (4.8-10.8)
[2016-09-10 04:50] LABS: NEUTROPHILS % 93.2 % (39.0-77.0); PLATELET COUNT 94 10^3/UL (140-415)
[2016-09-10 04:59] LABS: MAGNESIUM 1.9 mg/dl (1.7-2.5); PHOSPHORUS 2.3 mg/dl (2.5-4.9)
[2016-09-10 05:00] LABS: CALCIUM 6.6 mg/dl (8.4-10.2); CREATININE 0.9 mg/dl (0.44-1.00); POTASSIUM 3.1 mmol/L (3.5-5.1)
[2016-09-10] MEDS: HYDROCORTISONE 100 MG INJ IV SCH ×3 (05:30→21:03)
[2016-09-10] MEDS: POTASSIUM CHLORIDE 50 ML IVPB PRN ×3 (05:30→07:52)
[2016-09-10] MEDS: PANTOPRAZOLE 40 MG INJ IV SCH ×2 (05:30→17:09)
[2016-09-10] MEDS: metroNIDAZOLE 500 MG/NS (PMX) 100 ML IVPB SCH ×3 (06:13→22:20)
[2016-09-10] MEDS: FENTAnyl (DRIP) 1000 mcg/100mL 100 ML IV SCH (07:29)
[2016-09-10] MEDS: SODIUM BICARBONATE (IV ADD) 150 MEQ in DEXTROSE 5% 850 ML IV SCH (07:29)
[2016-09-10] MEDS ORDERED: MAGNESIUM SULFATE 2 GM/50 ML 50 ML IVPB ONE (08:30)
[2016-09-10] MEDS: [UNRECOGNIZED DRUG - REMARK] XX SCH ×2 (08:48→08:58)
--- NOTE | 2016-09-10 08:53 | PN ---
DATE: 09/10/2016 CARDIOLOGY FOLLOWUP SUBJECTIVE: Discussed with the staff. Rhythm strip was reviewed. The patient remains in sinus rhy thm, sinus tachycardia, status post intubation on the vent. Still on pressors, on Levophed drip. MEDICATIONS: Reviewed as per medication reconciliation, personally reviewed. PHYSICAL EXAMINATION: VITAL SIGNS: Temperature 97.8, heart rate of 104, blood pressure 103/70, respiratory rate of 24, sa turating 100%. HEENT: Normocephalic, atraumatic. Status post intubation. Eyes are closed. CARDIOVASCULAR: Tachycardic, systolic murmur. PULMONARY: With mild rhonchi. GASTROINTESTINAL: Hard, distended. EXTREMITIES: Diffuse lower extremity edema. NEUROLOGIC: Sedated and lethargic. PSYCHIATRIC: Unable to assess. LABORATORY: WBC of 13.8, hemoglobin 9.1, platelets of 94. Sodium 122, potassium 3.1, BUN of 25, cr eatinine 0.9, glucose of 192. Lactic acid is 8.2, magnesium is 1.9. I's and O's shows 3970 in and 1425 out. CVP has been around 10, the best I could obtain. Chest x-ray from yesterday showed heart and mediastinum within normal limits, severe pulmonary artery congestion. ASSESSMENT AND PLAN: 1. Shock, most likely secondary to septic shock as well as probably a component of cardiogenic. 2. Severe cardiomyopathy, most likely nonischemic, although coronary artery has not been able to be ruled out. 3. Perforated bowel. 4. Anemia, status post transfusion. 5. Congestive heart failure, acute on chronic, secondary to systolic dysfunction. 6. Respiratory failure, status post intubation, on the vent now. 7. History of metastatic cervical cancer. 8. Mildly abnormal troponin secondary to above. 9. Severe lactic acidosis. 10. Severe sepsis. 11. Electrolyte abnormalities and hypokalemia and hyponatremia. RECOMMENDATIONS: Will correct electrolytes as needed. Will continue with pressors including Levoph ed. Vent support will be continued. I will give a dose of digoxin. I will start the patient on di goxin IV given her severe LV dysfunction and tachycardia. Multiple antibiotics are being managed a s per internal medicine. Continue with the ICU care. More than 30 minutes of critical care time was spent in management of this patient excluding any pro cedures. Dictated By: JIM ABDI MD AV/EHSAN Conf#: [id number] DID#: [id number] CC: VEENA DEL ANGEL MD;*EndCC*
[2016-09-10] MEDS ORDERED: SOD CHLORIDE 0.9% IVPB SCH (09:00)
[2016-09-10] MEDS ORDERED: VASOPRESSIN IVPB SCH (09:00)
[2016-09-10 09:37] LABS: Arterial Base Excess -0.9 mmol/L (-3.0-3); Arterial COHb 0.3 % (0.0-3.0); Arterial Fraction of Oxyhgb 98.3 % (93.0-99.0); Arterial HCO3 20.2 mmol/L (22.0-26.0); Arterial MetHb 0.2 % (0.0-1.5); Arterial Total Hemglobin 9.5 g/dl (12.0-18.0); MODE VENT - AC
[2016-09-10] MEDS ORDERED: NORepinephrine 16 MG in SOD CHLORIDE 0.9% 484 ML IV SCH (10:00)
[2016-09-10] MEDS ORDERED: PHENYLephrine 160 MG in SOD CHLORIDE 0.9% 484 ML IV SCH (10:00)
[2016-09-10] MEDS: SOD CHLORIDE 0.9% 1,000 ML IV SCH ×2 (10:19→23:20)
--- NOTE | 2016-09-10 10:52 | CONS ---
Date/Time of Note Date/Time of Note DATE: 09/10/16 TIME: 10:49 Assessment/Plan Assessment/Plan Additional Assessment/Plan Ventilator setting; AC of 16, tidal volume 400, PEEP of 5, 35% FiO2. Patient currently on Levophed at 30 mics per minute, fentanyl drip 60 mics per hour. Assessment and recommendations; 1. Patient admitted for severe sepsis leading to respiratory failure with interval improvement. Currently on broad-spectrum antibiotic and antifungal coverage. 2. History of nephrectomy and bilateral nephrostomy tube placement. 3. Metastatic cervical cancer with brain metastases. 4. Improving hypotension. 5. Markedly improved mental status. 6. Slightly improved thrombocytopenia. No overt bleeding. Hold fentanyl drip for now. When the patient is off sedation she will be evaluated for possible weaning from ventilator. Meanwhile continue current treatment. Prognosis is guarded. 35 minutes of critical care time was spent evaluating the patient. Consultation Date/Type/Reason Admit Date/Time September 05, 2016 at 16:23 Initial Consult Date 09/06/16 Type of Consultation: Pulmonary/critical care Referring Provider: ONEIDA COLEMAN 24 HR Interval Summary Free Text/Dictation Patient's condition remains critical. However she is completely awake and alert. And follows simple commands. Still requiring Levophed for blood pressure maintenance. General exam; elderly woman, orally intubated, awake and alert. Currently in no distress. Exam/Review of Systems Vital Signs Vitals Vital Signs Date Time Temp Pulse Resp B/P Pulse Ox O2 Delivery O2 Flow Rate FiO2 09/10/16 10:15 99 16 104/69 100 09/10/16 10:00 Mechanical Ventilator 09/10/16 08:00 97.8 09/10/16 05:18 35 09/08/16 13:00 10.0 Intake and Output 09/09/16 09/09/16 09/10/16 15:00 23:00 07:00 Intake Total 1459.97 ml 1228.5 ml 1238 ml Output Total 390 ml 355 ml 680 ml Balance 1069.97 ml 873.5 ml 558 ml Exam HEENT exam is; supple neck, no JVD. No lymphadenopathy. Midline trachea. No thyromegaly. Orally intubated. Patient has few missing teeth and lower jaw. Pupils are midsize and reactive to light bilaterally. Chest examined; diminished but clear breath sounds bilaterally. S1-S2 audible, no murmurs. Regular rhythm. There is a MediPort in the right chest wall. Abdomen examination; soft, nondistended. No organomegaly. Bilateral nephrostomy tubes are in place. Draining clear urine. Extremity exam is; no peripheral edema. DATA ADMINISTRATOR examination; patient awake and alert and follows simple commands. Results Result Diagram: 09/10/16 0340 09/10/16 0340 Results 24 hrs Laboratory Tests Test 09/09/16 12:11 09/09/16 16:25 09/09/16 21:33 09/10/16 01:12 Bedside Glucose 133 152 131 168 Test 09/10/16 03:40 09/10/16 04:43 09/10/16 08:12 09/10/16 09:14 White Blood Count 13.8 H Red Blood Count 3.09 L Hemoglobin 9.1 L Hematocrit 26.7 L Mean Corpuscular Volume 86.4 Mean Corpuscular Hemoglobin 29.4 Mean Corpuscular Hemoglobin Concent 34.1 Red Cell Distribution Width 18.6 H Platelet Count 94 L Mean Platelet Volume 12.9 H Neutrophils % 93.2 H Lymphocytes % 2.2 L Monocytes % 1.7 Eosinophils % 0.0 Basophils % 0.2 Nucleated Red Blood Cells % 0.4 H Neutrophils # 12.9 H Lymphocytes # 0.3 L Monocytes # 0.2 L Eosinophils # 0.0 Basophils # 0.0 Nucleated Red Blood Cells # 0.1 H Sodium Level 122 L Potassium Level 3.1 L Chloride Level 93 L Carbon Dioxide Level 22 Anion Gap 10 Blood Urea Nitrogen 25 H Creatinine 0.90 Glucose Level 192 Osmolality Lactic Acid Level 8.2 *H Calcium Level 6.6 L Phosphorus Level 2.3 L Magnesium Level 1.9 Bedside Glucose 169 150 Blood Gas Specimen Source Blood arterial Arterial Blood Date Drawn 09/10/2016 9:15:47 AM Arterial Blood pH (Temp corrected) 7.570 *H Arterial Blood pCO2 (Temp correct) 22.5 L Arterial Blood pO2 (Temp corrected) 535.2 H Arterial Blood HCO3 20.2 L Arterial Blood Base Excess -0.9 Arterial Blood Oxygen Saturation 98.8 H Que Test N/A Arterial Blood Gas Puncture Site A-Line Arterial Blood Carboxyhemoglobin 0.3 Arterial Blood Methemoglobin 0.2 Oxyhemoglobin Percent 98.3 Total Hemoglobin 9.5 L Blood Gas Temperature 37.0 Blood Gas Respiration Rate 26.0 Blood Gas Actual Respiration Rate 30 Blood Gas Modality VENT - AC FiO2 35.0 Blood Gas Tidal Volume 400.0 Blood Gas Critical Value Read Back Court HANNON RN Blood Gas Notified Whom JLD Blood Gas Notified Time 09/10/2016 9:37:38 AM Medications Medications Current Medications Acetaminophen (Tylenol Tab) 650 mg Q6H PRN PO PAIN LEVEL 1-3 OR FEVER; Start at 18:30 Acetaminophen/ Hydrocodone Bitart ([place] (5/325)) 1 tab Q6H PRN PO MODERATE PAIN LEVEL 4-6; Start 09/05/16 at 18:30 Morphine Sulfate (morphine) 2 mg Q4H PRN IV SEVERE PAIN LEVEL 7-10; Start 09/05 at 18:30 Docusate Sodium (Colace) 100 mg Q12H PRN PO CONSTIPATION; Start 09/05/16 at 18: 30 Magnesium Hydroxide (Milk Of Mag) 30 ml DAILY PRN PO CONSTIPATION; Start at 18:30 Sodium Biphosphate/ Sodium Phosphate (Fleet Enema) 133 ml DAILY PRN DC CONSTIPATION; Start 09/05/16 at 18:30 Lorazepam 0.5 mg 0.5 mg Q6H PRN IV ANXIETY; Start 09/05/16 at 18:30 Piperacillin Sod/ Tazobactam Sod (Zosyn 2.25gm/ 50ml (Pmx)) 50 ml @ 100 mls/hr Q6 IVPB Last administered on 09/10/16 05:30; Admin Dose 100 MLS/HR; Start at 00:00 Vancomycin HCl (Vanco Iv Per Pharmacy) VANCOMYCIN PER PHARMACY NOTE XX ; Start 09/05/16 at 18:30 Hydralazine HCl (Apresoline) 10 mg Q6H PRN IV ELEVATED BLOOD PRESSURE; Start at 18:30 Nitroglycerin (Nitroglycerin (Sl Tab) 0.4 Mg) 1 tab Q5M PRN SL ANGINA; Start at 18:30 Insulin Aspart (Novolog Insulin Pen) NOVOLOG *MILD* ALGORI... Q4 SC Last administered on 09/10/16 09:23; Admin Dose 1 UNIT; Start 09/05/16 at 21:00 Miscellaneous Information 1 ea NOTE XX ; Start 09/05/16 at 19:00 Glucose (Glutose) 15 gm Q15M PRN PO DECREASED GLUCOSE; Start 09/05/16 at 19:00 Glucose (Glutose) 22.5 gm Q15M PRN PO DECREASED GLUCOSE; Start 09/05/16 at 19: 00 Dextrose (D50w Syringe) 25 ml Q15M PRN IV DECREASED GLUCOSE; Start 09/05/16 at 19:00 Dextrose (D50w Syringe) 50 ml Q15M PRN IV DECREASED GLUCOSE; Start 09/05/16 at 19:00 Glucagon (Glucagen) 1 mg Q15M PRN IM DECREASED GLUCOSE; Start 09/05/16 at 19:00 Glucose 15 gm 15 gm Q15M PRN BUCCAL DECREASED GLUCOSE; Start 09/05/16 at 19:00 Vancomycin HCl 750 mg/Sodium Chloride 150 ml @ 75 mls/hr Q24H IVPB Last administered on 09/09/16 20:05; Admin Dose 75 MLS/HR; Start 09/06/16 at 20:00 Ondansetron HCl/ Sodium Chloride (Zofran Inj/NS) 54 ml @ 216 mls/hr Q6H PRN IV NAUSEA AND/OR VOMITING Last administered on 09/07/16 17:27; Admin Dose 216 MLS/HR; Start 09/06/16 at 10:30 Pantoprazole (Protonix Iv) 40 mg BID@06,18 IV Last administered on 09/10/16 05 :30; Admin Dose 40 MG; Start 09/08/16 at 18:00 Hydrocortisone 100 mg 100 mg Q8 IV Last administered on 09/10/16 05:30; Admin Dose 100 MG; Start 09/08/16 at 14:00 Metronidazole 100 ml @ 100 mls/hr Q8 IVPB Last administered on 09/10/16 06:13 ; Admin Dose 100 MLS/HR; Start 09/08/16 at 14:00 Fentanyl 100 ml @ 5 mls/hr TITRATE IV Last administered on 09/10/16 07:29; Admin Dose 5 MLS/HR; Start 09/08/16 at 15:30 Fluconazole/ Sodium Chloride (Diflucan 100 Mg/ NS (Pmx)) 50 ml @ 50 mls/hr Q24H IVPB Last administered on 09/09/16 14:22; Admin Dose 50 MLS/HR; Start at 14:30 Digoxin 125 mcg 125 mcg DAILY@13 IV ; Start 09/10/16 at 13:00 Norepinephrine 16 mg/Sodium Chloride 500 ml @ 0 mls/hr TITRATE IV Last administered on 09/10/16 10:30; Admin Dose 20.62 MLS/HR; Start 09/10/16 at 10: 00 Phenylephrine HCl/ Sodium Chloride (Julio-Syneph/NS) 500 ml @ 18.75 mls/ hr TITRATE IV ; Start 09/10/16 at 10:00 Miscellaneous Information PLEASE CHANGE ALL IVPB F... DAILY XX Last administered on 09/10/16 08:58; Admin Dose 1 EA; Start 09/10/16 at 08:30 Vasopressin 60 unit/Sodium Chloride 103 ml @ 0 mls/hr Q12H IVPB ; Start at 09:00; Status Future Hold Sodium Chloride (NS) 1,000 ml @ 75 mls/hr [id number] IV Last administered on 09/10 10:19; Admin Dose 75 MLS/HR; Start 09/10/16 at 10:00 SKYLER ESTEVES September 10, 2016 10:52
--- NOTE | 2016-09-10 11:04 | CONS ---
DATE OF ADMISSION: 09/05/2016 DATE OF CONSULTATION: 09/10/2016 TYPE OF CONSULTATION: Nephrology REQUESTING PHYSICIAN: Richard Monique MD REASON FOR CONSULTATION: Hyponatremia. HISTORY OF PRESENT ILLNESS: This is a 61-year-old female with a past medical history of metastatic cervical cancer, status post radiation therapy approximately 1 month ago, who initially presented to [facility] on 09/05/2016 with complaints of weakness and low blood pressure. The patient at that time was noted to have an elevated lactic acid, to be severely hyperkalemic, to be hypotensive. The patient was subsequently admitted to telemetry. The patient during the hospital [facility] underwent a colonoscopy for Hemoccult stool. The patient post-procedure became more hypotensi ve, tachycardic. The patient was in septic shock. The patient was intubated, transferred to intens tiburcio care unit. The patient apparently had a bowel perforation post-procedure. The patient has subs equently been in the intensive care unit receiving aggressive critical care. In terms of the patient's renal history, the patient has noted bilateral nephrostomy catheters in th e kidneys with no evidence of hydronephrosis. These were placed presumably due to her cervical can cer. The patient's renal function has been stable during the hospital course. The patient, however , has been hyponatremic with sodium levels fluctuating, most recently declining precipitously in the last 48 hours from 134 to 122 mEq/L. During this time, the patient's urine output has been approxi mately 1 to 1.5 liters in the last 24 hours. The patient has been receiving some hypotonic fluids a nd piggybacks during this time. PAST MEDICAL HISTORY: As stated above, history of cervical cancer, history of hydronephrosis, statu s post nephrostomy tube placement. PAST SURGICAL HISTORY: Status post bilateral nephrostomy tube placement in 2013, debulking surgery in the past. SOCIAL HISTORY: Negative for alcohol drinking, drug use. FAMILY HISTORY: Noncontributory. MEDICATIONS: The patient's medications have been reviewed. ALLERGIES: LEVAQUIN. PHYSICAL EXAMINATION: VITAL SIGNS: Blood pressure is 103/70, respirations 24, pulse 101, temperature 98.6. I's and O's: The patient had 3.9 liters in, 1.4 liters out. HEENT: Head is normocephalic. Pupils are reactive to light. NECK: Supple. HEART: Regular rate. LUNGS: Show diminished breath sounds at the bases. ABDOMEN: Soft, nontender to palpation. Positive bilateral nephrostomy tubes. EXTREMITIES: Negative for clubbing, cyanosis. Positive edema. DERMATOLOGIC: No rashes. MUSCULOSKELETAL: No joint effusions. NEUROLOGIC: Limited exam as patient is obtunded. LABORATORY DATA: Shows sodium 122, potassium 3.1, chloride 93, BUN 25, creatinine 0.90. Lactic aci d 3.2, phosphorus 2.3, magnesium 2.9. IMAGING STUDIES: Chest x-ray shows no significant change with pulmonary vascular congestion. ASSESSMENT AND PLAN: This is a 61-year-old female who presents with: 1. Hyponatremia, acute. Etiology is likely secondary to syndrome of inappropriate antidiuretic hor navneet in conjunction with hypotonic fluids. Plan at this point is to check urine sodium, urine osmol arity, check serum osmolarity, uric acid level. We will minimize all hypotonic fluids. We will fatou ce all piggybacks in normal saline. Discontinue all free water flushes. We will continue to monito r serial sodium levels closely. If patient's sodium level should continue to decline, we will consi landen 3% sodium chloride. 2. Hypokalemia. Replete potassium chloride. 3. Volume overload. The patient has likely capillary leak, third spacing. The patient has noted l ower extremity edema and pulmonary congestion. Plan will be to continue current medical management, defer diuretic therapy in the setting of shock. We will monitor I's and O's closely. 4. Septic shock. Underlying source, possibly gastrointestinal. We will continue broad-spectrum an tibiotics, continue IV hydration. Monitor CVP levels. Wean off pressors if possible. 5. Mixed acid base disorder. The patient has a primary respiratory alkalosis and metabolic acidosi s. The patient has elevated lactic acid in part due to septic shock and underlying malignancy. The patient's ABG shows pH of 7.46 with a pCO2 of 23. Given that the patient is alkalemic, we will dis continue bicarbonate drip at this time. We will monitor serial ABGs. Continue to monitor lactic ac id levels. 6. Ventilator-dependent respiratory failure. Vent settings have been reviewed. ABG has been revie wed. 7. Perforated bowel. The patient has been evaluated by general surgery, no plan for intervention a t this time. Continue conservative management. 8. Elevated troponin. Etiology may be non-ST elevation myocardial infarction type 2. Continue to monitor. Follow up with cardiology. 9. Metastatic cervical cancer. Continue to monitor. Follow up with oncology. 10. History of cardiomyopathy with an ejection fraction of 20%. We will continue current medical m anagement. Would defer diuretic therapy in the setting of shock. Thank you, Dr. Monique, for this interesting consultation. It will be a pleasure to follow the patie nt with you throughout the hospital course. Dictated By: UIREL TERRAZAS DO NR/NTS Conf#: [id number] DID#: [id number]
--- NOTE | 2016-09-10 11:58 | PN ---
Date/Time of Note Date/Time of Note DATE: 09/10/16 TIME: 11:51 Assessment/Plan VTE Prophylaxis VTE Prophylaxis Intervention: SCD's Lines/Catheters IV [facility]from [facility] Central Line Central line still needed: Yes Urinary Cath still in place: No Assessment/Plan Chief Complaint/Hosp Course ASSESSMENT: 1. Shock. Most probably underlying septic shock. Likely secondary to perforated sigmoid colon versus early pneumonia Continue IV pressors to keep SBP above 90. Continue empiric antibiotics. Will involve Infectious Disease on the case. Pancultures negative so far. 2. Sigmoid colon perforation. General surgery has been consulted, patient is not a candidate for any surgical intervention at this time secondary to her prognosis and septic shock. 3. History of metastatic cervical cancer. Status post radiation and chemo. Currently, getting palliative chemotherapy. Palliative care already following the patient. 4. Hypochromic anemia. Etiology unclear. Status post 2 units of PRBC transfusion. The patient is being followed by Gastroenterology. Status post colonoscopy. Continue proton pump inhibitors. 5. Bilateral nephrostomy tubes. Continue monitoring. 6. Acute respiratory failure. Pulmonology has been consulted, continue vent management 7. Cardiomyopathy with ejection fraction of 20%. Cardiology has been consulted 8. Possible underlying ileus. Continue p.r.n. antiemetics. Continue IV antibiotics. Gastroenterology following the patient. Deep venous thrombosis prophylaxis. Bilateral sequential compression devices. Gastrointestinal prophylaxis. Proton pump inhibitors. Prognosis: Guarded PLAN: 1. Continue intensive care unit monitoring. 2. Continue pressors to keep systolic blood pressure above 90 3. Palliative care consult Problems: Subjective 24 Hr Interval Summary Free Text/Dictation Patient is more awake and alert Able to follow simple commands Intubated and sedated Vent settin, FiO2 of 30% with a PEEP of 5 On pressors via levophed at 9 William Exam/Review of Systems Vital Signs Vitals Vital Signs Date Time Temp Pulse Resp B/P Pulse Ox O2 Delivery O2 Flow Rate FiO2 09/10/16 11:15 102 17 95/66 100 09/10/16 11:00 Mechanical Ventilator 09/10/16 08:00 97.8 09/10/16 05:18 35 09/08/16 13:00 10.0 Intake and Output 09/09/16 09/09/16 09/10/16 15:00 23:00 07:00 Intake Total 1459.97 ml 1228.5 ml 1238 ml Output Total 390 ml 355 ml 680 ml Balance 1069.97 ml 873.5 ml 558 ml Exam General: The patient is intubated, sedated HEENT: Atraumatic, normocephalic. The pupils are equal and round . Neck: Supple Chest: Normal expansion of the thorax during inspiration Lungs: Decreased breath sounds bilateral lower lung field, positive crackles bilaterally Heart: Normal S1-S2, Regular rhythm and rate. Abdomen: Soft , nontender, mildly distended , bowel sounds are present. Extremities: Normal to inspection, no edema no cyanosis Neurologic:,The patient is awake, she is able to follow simple commands Results Result Diagram: 09/10/16 0340 09/10/16 0340 Results 24 hrs Laboratory Tests Test 09/09/16 12:11 09/09/16 16:25 09/09/16 21:33 09/10/16 01:12 Bedside Glucose 133 152 131 168 Test 09/10/16 03:40 09/10/16 04:43 09/10/16 08:12 09/10/16 09:14 White Blood Count 13.8 H Red Blood Count 3.09 L Hemoglobin 9.1 L Hematocrit 26.7 L Mean Corpuscular Volume 86.4 Mean Corpuscular Hemoglobin 29.4 Mean Corpuscular Hemoglobin Concent 34.1 Red Cell Distribution Width 18.6 H Platelet Count 94 L Mean Platelet Volume 12.9 H Neutrophils % 93.2 H Lymphocytes % 2.2 L Monocytes % 1.7 Eosinophils % 0.0 Basophils % 0.2 Nucleated Red Blood Cells % 0.4 H Neutrophils # 12.9 H Lymphocytes # 0.3 L Monocytes # 0.2 L Eosinophils # 0.0 Basophils # 0.0 Nucleated Red Blood Cells # 0.1 H Sodium Level 122 L Potassium Level 3.1 L Chloride Level 93 L Carbon Dioxide Level 22 Anion Gap 10 Blood Urea Nitrogen 25 H Creatinine 0.90 Glucose Level 192 Osmolality Lactic Acid Level 8.2 *H Calcium Level 6.6 L Phosphorus Level 2.3 L Magnesium Level 1.9 Bedside Glucose 169 150 Blood Gas Specimen Source Blood arterial Arterial Blood Date Drawn 09/10/2016 9:15:47 AM Arterial Blood pH (Temp corrected) 7.570 *H Arterial Blood pCO2 (Temp correct) 22.5 L Arterial Blood pO2 (Temp corrected) 535.2 H Arterial Blood HCO3 20.2 L Arterial Blood Base Excess -0.9 Arterial Blood Oxygen Saturation 98.8 H Que Test N/A Arterial Blood Gas Puncture Site A-Line Arterial Blood Carboxyhemoglobin 0.3 Arterial Blood Methemoglobin 0.2 Oxyhemoglobin Percent 98.3 Total Hemoglobin 9.5 L Blood Gas Temperature 37.0 Blood Gas Respiration Rate 26.0 Blood Gas Actual Respiration Rate 30 Blood Gas Modality VENT - AC FiO2 35.0 Blood Gas Tidal Volume 400.0 Blood Gas Critical Value Read Back Court HANNON RN Blood Gas Notified Whom JLD Blood Gas Notified Time 09/10/2016 9:37:38 AM Medications Medications Current Medications Acetaminophen (Tylenol Tab) 650 mg Q6H PRN PO PAIN LEVEL 1-3 OR FEVER; Start at 18:30 Acetaminophen/ Hydrocodone Bitart (Jones (5/325)) 1 tab Q6H PRN PO MODERATE PAIN LEVEL 4-6; Start 09/05/16 at 18:30 Morphine Sulfate (morphine) 2 mg Q4H PRN IV SEVERE PAIN LEVEL 7-10; Start 09/05 at 18:30 Docusate Sodium (Colace) 100 mg Q12H PRN PO CONSTIPATION; Start 09/05/16 at 18: 30 Magnesium Hydroxide (Milk Of Mag) 30 ml DAILY PRN PO CONSTIPATION; Start at 18:30 Sodium Biphosphate/ Sodium Phosphate (Fleet Enema) 133 ml DAILY PRN [place] CONSTIPATION; Start 09/05/16 at 18:30 Lorazepam 0.5 mg 0.5 mg Q6H PRN IV ANXIETY; Start 09/05/16 at 18:30 Piperacillin Sod/ Tazobactam Sod (Zosyn 2.25gm/ 50ml (Pmx)) 50 ml @ 100 mls/hr Q6 IVPB Last administered on 09/10/16t 05:30; Admin Dose 100 MLS/HR; Start at 00:00 Vancomycin HCl (Vanco Iv Per Pharmacy) VANCOMYCIN PER PHARMACY NOTE XX ; Start 09/05/16 at 18:30 Hydralazine HCl (Apresoline) 10 mg Q6H PRN IV ELEVATED BLOOD PRESSURE; Start at 18:30 Nitroglycerin (Nitroglycerin (Sl Tab) 0.4 Mg) 1 tab Q5M PRN SL ANGINA; Start at 18:30 Insulin Aspart (Novolog Insulin Pen) NOVOLOG *MILD* ALGORI... Q4 SC Last administered on 09/10/16 09:23; Admin Dose 1 UNIT; Start 09/05/16 at 21:00 Miscellaneous Information 1 ea NOTE XX ; Start 09/05/16 at 19:00 Glucose (Glutose) 15 gm Q15M PRN PO DECREASED GLUCOSE; Start 09/05/16 at 19:00 Glucose (Glutose) 22.5 gm Q15M PRN PO DECREASED GLUCOSE; Start 09/05/16 at 19: 00 Dextrose (D50w Syringe) 25 ml Q15M PRN IV DECREASED GLUCOSE; Start 09/05/16 at 19:00 Dextrose (D50w Syringe) 50 ml Q15M PRN IV DECREASED GLUCOSE; Start 09/05/16 at 19:00 Glucagon (Glucagen) 1 mg Q15M PRN IM DECREASED GLUCOSE; Start 09/05/16 at 19:00 Glucose 15 gm 15 gm Q15M PRN BUCCAL DECREASED GLUCOSE; Start 09/05/16 at 19:00 Vancomycin HCl 750 mg/Sodium Chloride 150 ml @ 75 mls/hr Q24H IVPB Last administered on 09/09/16 20:05; Admin Dose 75 MLS/HR; Start 09/06/16 at 20:00 Ondansetron HCl/ Sodium Chloride (Zofran Inj/NS) 54 ml @ 216 mls/hr Q6H PRN IV NAUSEA AND/OR VOMITING Last administered on 09/07/16 17:27; Admin Dose 216 MLS/HR; Start 09/06/16 at 10:30 Pantoprazole (Protonix Iv) 40 mg BID@06,18 IV Last administered on 09/10/16 05 :30; Admin Dose 40 MG; Start 09/08/16 at 18:00 Hydrocortisone 100 mg 100 mg Q8 IV Last administered on 09/10/16 05:30; Admin Dose 100 MG; Start 09/08/16 at 14:00 Metronidazole 100 ml @ 100 mls/hr Q8 IVPB Last administered on 09/10/16 06:13 ; Admin Dose 100 MLS/HR; Start 09/08/16 at 14:00 Fentanyl 100 ml @ 5 mls/hr TITRATE IV Last administered on 09/10/16 07:29; Admin Dose 5 MLS/HR; Start 09/08/16 at 15:30 Fluconazole/ Sodium Chloride (Diflucan 100 Mg/ NS (Pmx)) 50 ml @ 50 mls/hr Q24H IVPB Last administered on 09/09/16 14:22; Admin Dose 50 MLS/HR; Start at 14:30 Digoxin 125 mcg 125 mcg DAILY@13 IV ; Start 09/10/16 at 13:00 Norepinephrine 16 mg/Sodium Chloride 500 ml @ 0 mls/hr TITRATE IV Last administered on 09/10/16 10:30; Admin Dose 20.62 MLS/HR; Start 09/10/16 at 10: 00 Phenylephrine HCl/ Sodium Chloride (Julio-Syneph/NS) 500 ml @ 18.75 mls/ hr TITRATE IV ; Start 09/10/16 at 10:00 Miscellaneous Information PLEASE CHANGE ALL IVPB F... DAILY XX Last administered on 09/10/16 08:58; Admin Dose 1 EA; Start 09/10/16 at 08:30 Vasopressin 60 unit/Sodium Chloride 103 ml @ 0 mls/hr Q12H IVPB ; Start at 09:00; Status Future Hold Sodium Chloride (NS) 1,000 ml @ 75 mls/hr [id number] IV Last administered on 09/10 10:19; Admin Dose 75 MLS/HR; Start 09/10/16 at 10:00 Miscellaneous Information (*Rx Drug Level Order Reminder*) VANCOMYCIN TROUGH AT 1900 ONCE ONCE XX ; Start 09/10/16 at 19:00; Stop 09/10/16 at 19:01 VEENA DEL ANGEL MD September 10, 2016 11:58
[2016-09-10] MEDS: DIGOXIN 500 MCG INJ IV SCH (12:42)
[2016-09-10 13:18] LABS: ADD UMIC YES; UR BILIRUBIN (Dip) NEGATIVE (NEGATIVE); UR BLOOD (Dip) 2+ (NEGATIVE); UR CLARITY CLEAR (CLEAR); UR COLOR LT. YELLOW (YELLOW); UR GLUCOSE (Dip) NEGATIVE (NEGATIVE); UR KETONES (Dip) NEGATIVE (NEGATIVE); UR LEUKOCYTE ESTERASE (Dip) TRACE (NEGATIVE); UR NITRITE (Dip) NEGATIVE (NEGATIVE); UR TOTAL PROTEIN (Dip) NEGATIVE (NEGATIVE); UR UROBILINOGEN (Dip) 0.2 E.U./dL (0.1-1.0)
[2016-09-10 13:29] LABS: UR BACTERIA MODERATE
--- NOTE | 2016-09-10 14:31 | CONS ---
Date/Time of Note Date/Time of Note DATE: 09/10/16 TIME: 14:28 Assessment/Plan Assessment/Plan Chief Complaint/Hosp Course 61 yo with metastatic cervical cancer s/p chemotherapy , immunotherapy and radiation. Pt has not had chemotherapy or immunotherapy in over a year. 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 It seems that the [facility] oncologist does believe this patient is a candidate for more therapy at this time. Pt underwent a colonoscopy and suffered from a perforated sigmoid colon . #Metastatic Cervical Cancer -at this time, patient has an extremely poor functional status and is in a critical state in the ICU. there is no oncologic treatment that can be given at this time while she is critically ill. -family still wants patient to be full code -continue critical care supportive care. Pt's now on Levophed 7mcg #Perforated Sigmoid colon -pt is not a surgical candidate currently given her functional status -abdomen is softer #Brain Mets -per the son, pt was told that she was not a candidate for post op brain radiation. #Sepsis - lactate> 5. this is likely secondary to the urine in the nephrostomy tubes -continue broad spectrum antibiotics -cont pressor support # Anemia - secondary to metastatic disease and possible GI blood loss. Hg is currently stable -continue to monitor Hg. If it drops below 8 will consider transfusion approximately 1 hour was spent at patient's bedside, with her family, and coordination of her care Problems: Consultation Date/Type/Reason Admit Date/Time September 05, 2016 at 16:23 Initial Consult Date 09/06/16 Type of Consultation: oncology Reason for Consultation metastatic cervical cancer Referring Provider: ONEIDA COLEMNA 24 HR Interval Summary Free Text/Dictation pt now on lower doses of pressor support. abdomen softer. no episodes of GI Bleed per nurse Exam/Review of Systems Vital Signs Vitals Vital Signs Date Time Temp Pulse Resp B/P Pulse Ox O2 Delivery O2 Flow Rate FiO2 09/10/16 13:15 110 22 96/66 100 09/10/16 13:00 Mechanical Ventilator 09/10/16 12:00 97.6 09/10/16 08:00 35 09/08/16 13:00 10.0 Intake and Output 09/09/16 09/09/16 09/10/16 15:00 23:00 07:00 Intake Total 1459.97 ml 1228.5 ml 1238 ml Output Total 390 ml 355 ml 680 ml Balance 1069.97 ml 873.5 ml 558 ml Exam Constitutional: alert, oriented Psych: anxiety, depression ENMT: intubated Neck: non-tender, supple Respiratory: clear to auscultation, normal air movement Cardiovascular: regular rate and rhythm Gastrointestinal: soft Musculoskeletal: nl extremities to inspection Results Result Diagram: 09/10/16 0340 09/10/16 0340 Results 24 hrs Laboratory Tests Test 09/09/16 16:25 09/09/16 21:33 09/10/16 01:12 09/10/16 03:40 Bedside Glucose 152 131 168 White Blood Count 13.8 H Red Blood Count 3.09 L Hemoglobin 9.1 L Hematocrit 26.7 L Mean Corpuscular Volume 86.4 Mean Corpuscular Hemoglobin 29.4 Mean Corpuscular Hemoglobin Concent 34.1 Red Cell Distribution Width 18.6 H Platelet Count 94 L Mean Platelet Volume 12.9 H Neutrophils % 93.2 H Lymphocytes % 2.2 L Monocytes % 1.7 Eosinophils % 0.0 Basophils % 0.2 Nucleated Red Blood Cells % 0.4 H Neutrophils # 12.9 H Lymphocytes # 0.3 L Monocytes # 0.2 L Eosinophils # 0.0 Basophils # 0.0 Nucleated Red Blood Cells # 0.1 H Sodium Level 122 L Potassium Level 3.1 L Chloride Level 93 L Carbon Dioxide Level 22 Anion Gap 10 Blood Urea Nitrogen 25 H Creatinine 0.90 Glucose Level 192 Osmolality Lactic Acid Level 8.2 *H Calcium Level 6.6 L Phosphorus Level 2.3 L Magnesium Level 1.9 Test 09/10/16 04:43 09/10/16 08:12 09/10/16 09:12 09/10/16 09:14 Bedside Glucose 169 150 Blood Gas Specimen Source Blood arterial Arterial Blood Date Drawn 09/10/2016 9:15:47 AM Arterial Blood pH (Temp corrected) 7.570 *H Arterial Blood pCO2 (Temp correct) 22.5 L Arterial Blood pO2 (Temp corrected) 535.2 H Arterial Blood HCO3 20.2 L Arterial Blood Base Excess -0.9 Arterial Blood Oxygen Saturation 98.8 H Que Test N/A Arterial Blood Gas Puncture Site A-Line Arterial Blood Carboxyhemoglobin 0.3 Arterial Blood Methemoglobin 0.2 Oxyhemoglobin Percent 98.3 Total Hemoglobin 9.5 L Blood Gas Temperature 37.0 Blood Gas Respiration Rate 26.0 Blood Gas Actual Respiration Rate 30 Blood Gas Modality VENT - AC FiO2 35.0 Blood Gas Tidal Volume 400.0 Blood Gas Critical Value Read Back Court CHRISCheryl GABBY Blood Gas Notified Whom JLD Blood Gas Notified Time 09/10/2016 9:37:38 AM Urine Color LT. YELLOW Urine Clarity CLEAR Urine pH 6.0 Urine Specific [place] <=1.005 L Urine Ketones NEGATIVE Urine Nitrite NEGATIVE Urine Bilirubin NEGATIVE Urine Urobilinogen 0.2 E.U./dL Urine Leukocyte Esterase TRACE H Urine Microscopic RBC 2-5 Urine Microscopic WBC 5-10 Urine Epithelial Cells FEW Urine Bacteria MODERATE Urine Hemoglobin 2+ H Urine Osmolality Urine Glucose NEGATIVE Urine Total Protein NEGATIVE Test 09/10/16 12:45 Bedside Glucose 122 Medications Medications Current Medications Acetaminophen (Tylenol Tab) 650 mg Q6H PRN PO PAIN LEVEL 1-3 OR FEVER; Start at 18:30 Acetaminophen/ Hydrocodone Bitart (Stinnett (5/325)) 1 tab Q6H PRN PO MODERATE PAIN LEVEL 4-6; Start 09/05/16 at 18:30 Morphine Sulfate (morphine) 2 mg Q4H PRN IV SEVERE PAIN LEVEL 7-10; Start 09/05 at 18:30 Docusate Sodium (Colace) 100 mg Q12H PRN PO CONSTIPATION; Start 09/05/16 at 18: 30 Magnesium Hydroxide (Milk Of Mag) 30 ml DAILY PRN PO CONSTIPATION; Start at 18:30 Sodium Biphosphate/ Sodium Phosphate (Fleet Enema) 133 ml DAILY PRN [place] CONSTIPATION; Start 09/05/16 at 18:30 Lorazepam 0.5 mg 0.5 mg Q6H PRN IV ANXIETY; Start 09/05/16 at 18:30 Piperacillin Sod/ Tazobactam Sod (Zosyn 2.25gm/ 50ml (Pmx)) 50 ml @ 100 mls/hr Q6 IVPB Last administered on 09/10/16t 12:42; Admin Dose 100 MLS/HR; Start at 00:00 Vancomycin HCl (Vanco Iv Per Pharmacy) VANCOMYCIN PER PHARMACY NOTE XX ; Start 09/05/16 at 18:30 Hydralazine HCl (Apresoline) 10 mg Q6H PRN IV ELEVATED BLOOD PRESSURE; Start at 18:30 Nitroglycerin (Nitroglycerin (Sl Tab) 0.4 Mg) 1 tab Q5M PRN SL ANGINA; Start at 18:30 Insulin Aspart (Novolog Insulin Pen) NOVOLOG *MILD* ALGORI... Q4 SC Last administered on 09/10/16 09:23; Admin Dose 1 UNIT; Start 09/05/16 at 21:00 Miscellaneous Information 1 ea NOTE XX ; Start 09/05/16 at 19:00 Glucose (Glutose) 15 gm Q15M PRN PO DECREASED GLUCOSE; Start 09/05/16 at 19:00 Glucose (Glutose) 22.5 gm Q15M PRN PO DECREASED GLUCOSE; Start 09/05/16 at 19: 00 Dextrose (D50w Syringe) 25 ml Q15M PRN IV DECREASED GLUCOSE; Start 09/05/16 at 19:00 Dextrose (D50w Syringe) 50 ml Q15M PRN IV DECREASED GLUCOSE; Start 09/05/16 at 19:00 Glucagon (Glucagen) 1 mg Q15M PRN IM DECREASED GLUCOSE; Start 09/05/16 at 19:00 Glucose 15 gm 15 gm Q15M PRN BUCCAL DECREASED GLUCOSE; Start 09/05/16 at 19:00 Vancomycin HCl 750 mg/Sodium Chloride 150 ml @ 75 mls/hr Q24H IVPB Last administered on 09/09/16 20:05; Admin Dose 75 MLS/HR; Start 09/06/16 at 20:00 Ondansetron HCl/ Sodium Chloride (Zofran Inj/NS) 54 ml @ 216 mls/hr Q6H PRN IV NAUSEA AND/OR VOMITING Last administered on 09/07/16 17:27; Admin Dose 216 MLS/HR; Start 09/06/16 at 10:30 Pantoprazole (Protonix Iv) 40 mg BID@06,18 IV Last administered on 09/10/16 05 :30; Admin Dose 40 MG; Start 09/08/16 at 18:00 Hydrocortisone 100 mg 100 mg Q8 IV Last administered on 09/10/16 05:30; Admin Dose 100 MG; Start 09/08/16 at 14:00 Metronidazole 100 ml @ 100 mls/hr Q8 IVPB Last administered on 09/10/16 06:13 ; Admin Dose 100 MLS/HR; Start 09/08/16 at 14:00 Fentanyl 100 ml @ 5 mls/hr TITRATE IV Last administered on 09/10/16 07:29; Admin Dose 5 MLS/HR; Start 09/08/16 at 15:30 Fluconazole/ Sodium Chloride (Diflucan 100 Mg/ NS (Pmx)) 50 ml @ 50 mls/hr Q24H IVPB Last administered on 09/09/16 14:22; Admin Dose 50 MLS/HR; Start at 14:30 Digoxin 125 mcg 125 mcg DAILY@13 IV Last administered on 09/10/16 12:42; Admin Dose 125 MCG; Start 09/10/16 at 13:00 Norepinephrine 16 mg/Sodium Chloride 500 ml @ 0 mls/hr TITRATE IV Last administered on 09/10/16 10:30; Admin Dose 20.62 MLS/HR; Start 09/10/16 at 10: 00 Phenylephrine HCl/ Sodium Chloride (Ujlio-Syneph/NS) 500 ml @ 18.75 mls/ hr TITRATE IV ; Start 09/10/16 at 10:00 Miscellaneous Information PLEASE CHANGE ALL IVPB F... DAILY XX Last administered on 09/10/16 08:58; Admin Dose 1 EA; Start 09/10/16 at 08:30 Vasopressin 60 unit/Sodium Chloride 103 ml @ 0 mls/hr Q12H IVPB ; Start at 09:00; Status Future Hold Sodium Chloride (NS) 1,000 ml @ 75 mls/hr [id number] IV Last administered on 09/10 10:19; Admin Dose 75 MLS/HR; Start 09/10/16 at 10:00 Miscellaneous Information (*Rx Drug Level Order Reminder*) VANCOMYCIN TROUGH AT 1900 ONCE ONCE XX ; Start 09/10/16 at 19:00; Stop 09/10/16 at 19:01 MINOO SOTO M.D. September 10, 2016 14:31
[2016-09-10] MEDS: FLUCONAZOLE 100 MG/NS (PMX) 50 ML IVPB SCH (14:35)
[2016-09-10 14:36] LABS: POTASSIUM 3.3 mmol/L (3.5-5.1)
[2016-09-10 14:39] LABS: CREATININE 0.92 mg/dl (0.44-1.00)
[2016-09-10 14:40] LABS: CALCIUM 6.4 mg/dl (8.4-10.2)
--- NOTE | 2016-09-10 14:46 | PN ---
DATE: 09/10/2016 SUBJECTIVE: No events overnight. The patient remains on Levophed drip, off bicarb. She looks comfortable. VITAL SIGNS: Temperature 97.6, pulse 102, respirations 16, blood pressure 103/ 81, saturation 100 on vent. WBC 13.8, H and H 9.1 and 26.7, platelets 94, neutrophils 93.2, BUN 25, creatinine 0.90. MICROBIOLOGY: Cultures remain negative. INDWELLINGS: Endotracheal tube, NG tube, right chest Port-A-Cath, triple lumen catheter right femoral, urostomies. ANTIMICROBIALS: Fluconazole, Flagyl, vancomycin, Zosyn. PHYSICAL EXAMINATION: GENERAL: This is a chronically ill-appearing, elderly woman who is in no distress. HEENT: Head atraumatic, normocephalic. Sclerae anicteric. Buccal mucosa dry. NECK: Supple, trachea midline. CHEST: Rise symmetrical. Breath sounds diminished to bases. HEART: S1, S2. ABDOMEN: Distended, hypoactive bowel tones. EXTREMITIES: Cyanotic. ASSESSMENT: 1. Severe sepsis with shock. 2. Large pelvic mass with proximal sigmoid colon obstruction and evidence of perforation per CT of the abdomen. 3. Metastatic cervical cancer with brain metastasis. 4. Left adrenal mass, possible metastasis. 5. Acute renal failure. 6. Urinary tract infection as per urinalysis on admission. 7. Hyponatremia. PLAN: The patient is doing poorly, still requiring vasopressor support. She is being followed by multiple consultants. Surgery is following her and also oncology team. Dictated By: [employer] PROFESS[employer] for RIDDHI PINK/EHSAN Conf#: [id number] DID#: [id number] CC: ONEIDA COLEMAN;*Aimee* MTDD
--- NOTE | 2016-09-10 14:55 | PN ---
Date/Time of Note Date/Time of Note DATE: 09/10/16 TIME: 14:51 Assessment/Plan VTE Prophylaxis VTE Prophylaxis Intervention: SCD's Lines/Catheters IV [facility]from [facility] Central Line Central line still needed: Yes Urinary Cath still in place: No Assessment/Plan Assessment/Plan ssessment: * Post colonoscopy perforated viscus * large pelvic mass invading colon wall site of perforation * contrast leakage to pelvic area * ?Contained perforaton as no evidence of generalized peritonitis * Sepsis * Metastatic cervical CA/Adrenal * History of cervical cancer * S/P nephrostomy tube bilateral * EF 20% Plan * continue present supportive management Subjective 24 Hr Interval Summary Free Text/Dictation * Course reviewed with RN * Patient seen and examined * still intubated ,on Levophed drip 6 uggts Exam/Review of Systems Vital Signs Vitals Vital Signs Date Time Temp Pulse Resp B/P Pulse Ox O2 Delivery O2 Flow Rate FiO2 09/10/16 13:15 110 22 96/66 100 09/10/16 13:00 Mechanical Ventilator 09/10/16 12:00 97.6 09/10/16 08:00 35 09/08/16 13:00 10.0 Intake and Output 09/09/16 09/09/16 09/10/16 15:00 23:00 07:00 Intake Total 1459.97 ml 1228.5 ml 1238 ml Output Total 390 ml 355 ml 680 ml Balance 1069.97 ml 873.5 ml 558 ml Exam Constitutional: frail ENMT: intubated Respiratory: crackles/rales, diminished breath sounds, normal air movement Cardiovascular: nl pulses, regular rate and rhythm Gastrointestinal: distended, soft, No rebound or guarding Musculoskeletal: nl extremities to inspection Extremities: normal pulses Results Result Diagram: 09/10/16 0340 09/10/16 1352 Results 24 hrs Laboratory Tests Test 09/09/16 16:25 09/09/16 21:33 09/10/16 01:12 09/10/16 03:40 Bedside Glucose 152 131 168 White Blood Count 13.8 H Red Blood Count 3.09 L Hemoglobin 9.1 L Hematocrit 26.7 L Mean Corpuscular Volume 86.4 Mean Corpuscular Hemoglobin 29.4 Mean Corpuscular Hemoglobin Concent 34.1 Red Cell Distribution Width 18.6 H Platelet Count 94 L Mean Platelet Volume 12.9 H Neutrophils % 93.2 H Lymphocytes % 2.2 L Monocytes % 1.7 Eosinophils % 0.0 Basophils % 0.2 Nucleated Red Blood Cells % 0.4 H Neutrophils # 12.9 H Lymphocytes # 0.3 L Monocytes # 0.2 L Eosinophils # 0.0 Basophils # 0.0 Nucleated Red Blood Cells # 0.1 H Sodium Level 122 L Potassium Level 3.1 L Chloride Level 93 L Carbon Dioxide Level 22 Anion Gap 10 Blood Urea Nitrogen 25 H Creatinine 0.90 Glucose Level 192 Osmolality Lactic Acid Level 8.2 *H Calcium Level 6.6 L Phosphorus Level 2.3 L Magnesium Level 1.9 Test 09/10/16 04:43 09/10/16 08:12 09/10/16 09:12 09/10/16 09:14 Bedside Glucose 169 150 Blood Gas Specimen Source Blood arterial Arterial Blood Date Drawn 09/10/2016 9:15:47 AM Arterial Blood pH (Temp corrected) 7.570 *H Arterial Blood pCO2 (Temp correct) 22.5 L Arterial Blood pO2 (Temp corrected) 535.2 H Arterial Blood HCO3 20.2 L Arterial Blood Base Excess -0.9 Arterial Blood Oxygen Saturation 98.8 H Que Test N/A Arterial Blood Gas Puncture Site A-Line Arterial Blood Carboxyhemoglobin 0.3 Arterial Blood Methemoglobin 0.2 Oxyhemoglobin Percent 98.3 Total Hemoglobin 9.5 L Blood Gas Temperature 37.0 Blood Gas Respiration Rate 26.0 Blood Gas Actual Respiration Rate 30 Blood Gas Modality VENT - AC FiO2 35.0 Blood Gas Tidal Volume 400.0 Blood Gas Critical Value Read Back G RIDDHI RN Blood Gas Notified Whom JLD Blood Gas Notified Time 09/10/2016 9:37:38 AM Urine Color LT. YELLOW Urine Clarity CLEAR Urine pH 6.0 Urine Specific [place] <=1.005 L Urine Ketones NEGATIVE Urine Nitrite NEGATIVE Urine Bilirubin NEGATIVE Urine Urobilinogen 0.2 E.U./dL Urine Leukocyte Esterase TRACE H Urine Microscopic RBC 2-5 Urine Microscopic WBC 5-10 Urine Epithelial Cells FEW Urine Bacteria MODERATE Urine Hemoglobin 2+ H Urine Osmolality Urine Glucose NEGATIVE Urine Total Protein NEGATIVE Test 09/10/16 12:45 09/10/16 13:52 Bedside Glucose 122 Sodium Level 129 L Potassium Level 3.3 L Chloride Level 98 Carbon Dioxide Level 23 Anion Gap 11 Blood Urea Nitrogen 24 H Creatinine 0.92 Glucose Level 106 # Calcium Level 6.4 L Medications Medications Current Medications Acetaminophen (Tylenol Tab) 650 mg Q6H PRN PO PAIN LEVEL 1-3 OR FEVER; Start at 18:30 Acetaminophen/ Hydrocodone Bitart ([place] (5/325)) 1 tab Q6H PRN PO MODERATE PAIN LEVEL 4-6; Start 09/05/16 at 18:30 Morphine Sulfate (morphine) 2 mg Q4H PRN IV SEVERE PAIN LEVEL 7-10; Start 09/05 at 18:30 Docusate Sodium (Colace) 100 mg Q12H PRN PO CONSTIPATION; Start 09/05/16 at 18: 30 Magnesium Hydroxide (Milk Of Mag) 30 ml DAILY PRN PO CONSTIPATION; Start at 18:30 Sodium Biphosphate/ Sodium Phosphate (Fleet Enema) 133 ml DAILY PRN SC CONSTIPATION; Start 09/05/16 at 18:30 Lorazepam 0.5 mg 0.5 mg Q6H PRN IV ANXIETY; Start 09/05/16 at 18:30 Piperacillin Sod/ Tazobactam Sod (Zosyn 2.25gm/ 50ml (Pmx)) 50 ml @ 100 mls/hr Q6 IVPB Last administered on 09/10/16 12:42; Admin Dose 100 MLS/HR; Start at 00:00 Vancomycin HCl (Vanco Iv Per Pharmacy) VANCOMYCIN PER PHARMACY NOTE XX ; Start 09/05/16 at 18:30 Hydralazine HCl (Apresoline) 10 mg Q6H PRN IV ELEVATED BLOOD PRESSURE; Start at 18:30 Nitroglycerin (Nitroglycerin (Sl Tab) 0.4 Mg) 1 tab Q5M PRN SL ANGINA; Start at 18:30 Insulin Aspart (Novolog Insulin Pen) NOVOLOG *MILD* ALGORI... Q4 SC Last administered on 09/10/16 09:23; Admin Dose 1 UNIT; Start 09/05/16 at 21:00 Miscellaneous Information 1 ea NOTE XX ; Start 09/05/16 at 19:00 Glucose (Glutose) 15 gm Q15M PRN PO DECREASED GLUCOSE; Start 09/05/16 at 19:00 Glucose (Glutose) 22.5 gm Q15M PRN PO DECREASED GLUCOSE; Start 09/05/16 at 19: 00 Dextrose (D50w Syringe) 25 ml Q15M PRN IV DECREASED GLUCOSE; Start 09/05/16 at 19:00 Dextrose (D50w Syringe) 50 ml Q15M PRN IV DECREASED GLUCOSE; Start 09/05/16 at 19:00 Glucagon (Glucagen) 1 mg Q15M PRN IM DECREASED GLUCOSE; Start 09/05/16 at 19:00 Glucose 15 gm 15 gm Q15M PRN BUCCAL DECREASED GLUCOSE; Start 09/05/16 at 19:00 Vancomycin HCl 750 mg/Sodium Chloride 150 ml @ 75 mls/hr Q24H IVPB Last administered on 09/09/16 20:05; Admin Dose 75 MLS/HR; Start 09/06/16 at 20:00 Ondansetron HCl/ Sodium Chloride (Zofran Inj/NS) 54 ml @ 216 mls/hr Q6H PRN IV NAUSEA AND/OR VOMITING Last administered on 09/07/16 17:27; Admin Dose 216 MLS/HR; Start 09/06/16 at 10:30 Pantoprazole (Protonix Iv) 40 mg BID@06,18 IV Last administered on 09/10/16 05 :30; Admin Dose 40 MG; Start 09/08/16 at 18:00 Hydrocortisone 100 mg 100 mg Q8 IV Last administered on 09/10/16 14:34; Admin Dose 100 MG; Start 09/08/16 at 14:00 Metronidazole 100 ml @ 100 mls/hr Q8 IVPB Last administered on 09/10/16 14:34 ; Admin Dose 100 MLS/HR; Start 09/08/16 at 14:00 Fentanyl 100 ml @ 5 mls/hr TITRATE IV Last administered on 09/10/16 07:29; Admin Dose 5 MLS/HR; Start 09/08/16 at 15:30 Fluconazole/ Sodium Chloride (Diflucan 100 Mg/ NS (Pmx)) 50 ml @ 50 mls/hr Q24H IVPB Last administered on 09/10/16 14:35; Admin Dose 50 MLS/HR; Start at 14:30 Digoxin 125 mcg 125 mcg DAILY@13 IV Last administered on 09/10/16 12:42; Admin Dose 125 MCG; Start 09/10/16 at 13:00 Norepinephrine 16 mg/Sodium Chloride 500 ml @ 0 mls/hr TITRATE IV Last administered on 09/10/16 10:30; Admin Dose 20.62 MLS/HR; Start 09/10/16 at 10: 00 Phenylephrine HCl/ Sodium Chloride (Julio-Syneph/NS) 500 ml @ 18.75 mls/ hr TITRATE IV ; Start 09/10/16 at 10:00 Miscellaneous Information PLEASE CHANGE ALL IVPB F... DAILY XX Last administered on 09/10/16 08:58; Admin Dose 1 EA; Start 09/10/16 at 08:30 Vasopressin 60 unit/Sodium Chloride 103 ml @ 0 mls/hr Q12H IVPB ; Start at 09:00; Status Future Hold Sodium Chloride (NS) 1,000 ml @ 75 mls/hr [id number] IV Last administered on 09/10 10:19; Admin Dose 75 MLS/HR; Start 09/10/16 at 10:00 Miscellaneous Information (*Rx Drug Level Order Reminder*) VANCOMYCIN TROUGH AT 1900 ONCE ONCE XX ; Start 09/10/16 at 19:00; Stop 09/10/16 at 19:01 SAKSHI MENA MD September 10, 2016 14:55
[2016-09-10] MEDS: VANCOMYCIN 750 MG in SOD CHLORIDE 0.9% 150 ML IVPB SCH (20:11)
[2016-09-11] VITALS (102 sets, daily range): BP systolic 82–127; BP diastolic 59–90; PULSE 88–117; RESP 0–33
--- NOTE | 2016-09-11 | PN ---
Date/Time of Note Date/Time of Note DATE: 09/09/16 TIME: 23:52 Assessment/Plan Lines/Catheters IV Catheter Type (from [facility] Central Line Fleming in Place (from [facility]): No Assessment/Plan Chief Complaint/Hosp Course 1. Septic shock, multifactorial due to presenting infection plus sigmoid perforation after colonoscopy. Patient has very poor prognosis. She is not a surgical candidate based on her presentation. Family had mentioned no surgical intervention either at this point. -abx -judicious fluid management -supportive measures 2. Metastatic cervical cancer, off treatment from [facility] at this time since they deem it to be too dangerous for her as above. -onc following 3. Anemia, probably multifactorial with GI losses. Continue to monitor. 4. Significant hypoalbuminemia is multifactorial; however, she is not able to tolerate feeds at this time. 5. Probable hydronephrosis with obstruction. Currently with bilateral nephrostomy tubes. Continue tubes to drainage and monitor closely. 6. Electrolyte abnormalities. Please correct with judicious fluid management and replacement as needed. 7. Decubitus ulceration. Continue offloading, local care and eventually, if patient survives through this, nutritional optimization and vitamin replenishment. Thank you Late entry 09/09 Problems: Subjective 24 Hr Interval Summary On pressors. No f/c. No cough. No sz. No rash. No vomiting. Bloated. No bleeding. Leukocytosis. Lactic acidosis. CT with perforation and malignancy. Exam/Review of Systems Vital Signs Vitals Vital Signs Date Time Temp Pulse Resp B/P Pulse Ox O2 Delivery O2 Flow Rate FiO2 09/10/16 21:15 98 17 100/66 100 09/10/16 21:07 35 09/10/16 21:00 Mechanical Ventilator 09/10/16 20:00 97.6 09/08/16 13:00 10.0 Intake and Output 09/09/16 09/09/16 09/10/16 15:00 23:00 07:00 Intake Total 1459.97 ml 1228.5 ml 1238 ml Output Total 390 ml 355 ml 680 ml Balance 1069.97 ml 873.5 ml 558 ml Exam Free Text/Dictation GENERAL: Intubated, obese HEENT: Pupils are sluggish. No scleral icterus. Mucous membranes are moist. NECK: JVD. No crepitus. Trachea midline. PULMONARY: Minimally coarse. CARDIAC: S1, S2 and tachycardic. ABDOMEN: Distended and taut. EXTREMITIES: Minimal edema. VASCULAR: Capillary refill is over 3 seconds. NEUROLOGIC: Not able to follow commands. LYMPHATICS: No inguinal lymphadenopathy. Results Result Diagram: 09/10/16 0340 09/10/16 1352 DANIEL ALEXANDRE MD Sep 11, 2016 00:00
--- NOTE | 2016-09-11 00:01 | PN ---
Date/Time of Note Date/Time of Note DATE: 09/10/16 TIME: 23:00 Assessment/Plan Lines/Catheters IV Catheter Type (from [facility]): Central Line Fleming in Place (from [facility]): No Assessment/Plan Chief Complaint/Hosp Course 1. Septic shock, multifactorial due to presenting infection plus sigmoid perforation after colonoscopy. Patient has very poor prognosis. She is not a surgical candidate based on her presentation. Family had mentioned no surgical intervention either at this point. -abx -judicious fluid management -supportive measures 2. Metastatic cervical cancer, off treatment from [facility] at this time since they deem it to be too dangerous for her as above. -onc following 3. Anemia, probably multifactorial with GI losses. Continue to monitor. 4. Significant hypoalbuminemia is multifactorial; however, she is not able to tolerate feeds at this time. 5. Probable hydronephrosis with obstruction. Currently with bilateral nephrostomy tubes. Continue tubes to drainage and monitor closely. 6. Electrolyte abnormalities. Please correct with judicious fluid management and replacement as needed. 7. Decubitus ulceration. Continue offloading, local care and eventually, if patient survives through this, nutritional optimization and vitamin replenishment. Thank you Late entry 09/10 Problems: Subjective 24 Hr Interval Summary On one pressor. No f/c. No cough. No sz. No rash. No vomiting. Bloated. No bleeding. Leukocytosis. Lactic acidosis worsening. CT with perforation and malignancy. Exam/Review of Systems Vital Signs Vitals Vital Signs Date Time Temp Pulse Resp B/P Pulse Ox O2 Delivery O2 Flow Rate FiO2 09/10/16 21:15 98 17 100/66 100 09/10/16 21:07 35 09/10/16 21:00 Mechanical Ventilator 09/10/16 20:00 97.6 09/08/16 13:00 10.0 Intake and Output 09/10/16 09/10/16 09/11/16 15:00 23:00 07:00 Intake Total 1473.96 ml 712.49 ml Output Total 310 ml 180 ml Balance 1163.96 ml 532.49 ml Exam Free Text/Dictation GENERAL: Intubated, obese HEENT: Pupils are sluggish. No scleral icterus. Mucous membranes are moist. NECK: JVD. No crepitus. Trachea midline. PULMONARY: Minimally coarse. CARDIAC: S1, S2 and tachycardic. ABDOMEN: Distended and taut. EXTREMITIES: Minimal edema. VASCULAR: Capillary refill is over 3 seconds. NEUROLOGIC: Not able to follow commands. LYMPHATICS: No inguinal lymphadenopathy. Results Result Diagram: 09/10/16 0340 09/10/16 1352 DANIEL ALEXANDRE MD Sep 11, 2016 00:01
[2016-09-11] MEDS: FENTAnyl (DRIP) 1000 mcg/100mL 100 ML IV SCH ×2 (00:29→15:05)
[2016-09-11] MEDS: PIPER-TAZO 2.25 GM (PMX) 50 ML IVPB SCH ×5 (00:30→23:57)
[2016-09-11] MEDS: INSULIN ASPART [NOVOLOG] 3 ML PEN SC SCH ×6 (00:32→20:44)
[2016-09-11] MEDS: SOD CHLORIDE 0.9% 1,000 ML IV SCH ×2 (03:01→12:40)
[2016-09-11 04:32] LABS: ADD SCAN DIFF NO
[2016-09-11 04:37] LABS: ABNORMAL IP MESSAGE 1; BASOPHILS % 0.1 % (0.0-2.0); HEMOGLOBIN 8.9 g/dl (12.0-16.0); LYMPHOCYTES # 0.3 10^3/ul (0.8-2.9); LYMPHOCYTES % 1.6 % (15.0-51.0); MEAN CORPUSCULAR HEMOGLOBIN 28.3 pg (29.0-33.0); MEAN PLATELET VOLUME 13.7 fl (7.4-10.4); MONOCYTE # 0.4 10^3/ul (0.3-0.9); MONOCYTES % 2.3 % (0.0-11.0); NEUTROPHIL # 14.5 10^3/ul (1.6-7.5); NUCLEATED RED BLOOD CELLS # 0.1 10^3/ul (0.0-0.0); NUCLEATED RED BLOOD CELLS% 0.4 /100WBC (0.0-0.0); PLATELET COUNT 79 10^3/UL (140-415); RED BLOOD COUNT 3.14 10^6/ul (4.20-5.40); WHITE BLOOD COUNT 15.4 10^3/ul (4.8-10.8)
[2016-09-11 04:50] LABS: NEUTROPHILS % 94.3 % (39.0-77.0)
[2016-09-11 04:56] LABS: MAGNESIUM 2.3 mg/dl (1.7-2.5); PHOSPHORUS 2.8 mg/dl (2.5-4.9)
[2016-09-11 04:58] LABS: ALBUMIN/GLOBULIN RATIO 1.05; BILIRUBIN,INDIRECT 0.1 mg/dl (0-1.1); BILIRUBIN,TOTAL 0.1 mg/dl (0.2-1.3); CREATININE 0.93 mg/dl (0.44-1.00); POTASSIUM 3.4 mmol/L (3.5-5.1); TOTAL PROTEIN 3.9 g/dl (6.1-8.1)
[2016-09-11] MEDS: HYDROCORTISONE 100 MG INJ IV SCH ×3 (05:09→22:09)
[2016-09-11] MEDS: PANTOPRAZOLE 40 MG INJ IV SCH ×2 (05:09→18:00)
[2016-09-11] MEDS: POTASSIUM CHLORIDE 50 ML IVPB PRN ×2 (05:58→07:02)
[2016-09-11] MEDS: metroNIDAZOLE 500 MG/NS (PMX) 100 ML IVPB SCH ×3 (06:32→22:09)
--- NOTE | 2016-09-11 07:42 | RADRPT ---
PROCEDURE: XR Chest. CLINICAL INDICATION: resp failure TECHNIQUE: Single frontal view of the chest was obtained. COMPARISON: Chest x-ray from 09/09/2016 FINDINGS: The endotracheal tube, enteric tube, and right-sided Port-A-Cath are unchanged The heart and mediastinum are within normal limits. The aortic arch is calcified. There is improved aeration with stable elevation of the left hemidiaphragm. There is no significant pleural effusion or pneumothorax. IMPRESSION: Improved aeration with resolution of pulmonary vascular congestion seen previously. RPTAT: EE Physician Daniella Date Time Electronically viewed and signed by Physician Daniella on 09/11/2016 07:42 RA/
[2016-09-11 07:59] LABS: AADO2 Arterial 57.9 mmHg (7.0-24.0); Arterial Base Excess -2.5 mmol/L (-3.0-3); Arterial COHb 0.3 % (0.0-3.0); Arterial Fraction of Oxyhgb 97.6 % (93.0-99.0); Arterial HCO3 19.4 mmol/L (22.0-26.0); Arterial MetHb 0.2 % (0.0-1.5); Arterial Total Hemglobin 9.8 g/dl (12.0-18.0); MODE VENT - AC
--- NOTE | 2016-09-11 08:00 | CONS ---
Date/Time of Note Date/Time of Note DATE: 09/11/16 TIME: 07:55 Assessment/Plan Assessment/Plan Chief Complaint/Hosp Course 61 yo with metastatic cervical cancer s/p chemotherapy , immunotherapy and radiation. Pt has not had chemotherapy or immunotherapy in over a year. 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 It seems that the [facility] oncologist does believe this patient is a candidate for more therapy at this time. Pt underwent a colonoscopy and suffered from a perforated sigmoid colon . She is currently in septic shock and is now requiring less pressor support #Metastatic Cervical Cancer -at this time, patient has an extremely poor functional status and is in a critical state in the ICU. there is no oncologic treatment that can be given at this time while she is critically ill. -family still wants patient to be full code -continue critical care supportive care. Pt in now on Levophed 5mcg #Perforated Sigmoid colon -pt currently not a surgical candidate currently given her current critical condition functional status -surgery is following #Brain Mets -per the son, pt was told that she was not a candidate for post op brain radiation. #Sepsis - lactate> 5. this is likely secondary to the urosepsis as well as sigmoid bowel perforation -continue broad spectrum antibiotics -cont pressor support # Anemia - secondary to metastatic disease and possible GI blood loss. Hg is currently stable -continue to monitor Hg. If it drops below 8 will consider transfusion approximately 1 hour was spent at patient's bedside, with her family, and coordination of her care Problems: Consultation Date/Type/Reason Admit Date/Time September 05, 2016 at 16:23 Initial Consult Date 09/06/16 Type of Consultation: oncology Reason for Consultation metastatic cervical cancer Referring Provider: ONEIDA COLEMAN 24 HR Interval Summary Free Text/Dictation pt requiring less pressor support. abdomen is less distended. pt is alert Exam/Review of Systems Vital Signs Vitals Vital Signs Date Time Temp Pulse Resp B/P Pulse Ox O2 Delivery O2 Flow Rate FiO2 09/11/16 07:45 110 25 91/62 100 09/11/16 07:00 Mechanical Ventilator 09/11/16 05:00 35 09/11/16 04:00 97.8 09/08/16 13:00 10.0 Intake and Output 09/10/16 09/10/16 09/11/16 15:00 23:00 07:00 Intake Total 1473.96 ml 737.29 ml 791.73 ml Output Total 310 ml 180 ml 245 ml Balance 1163.96 ml 557.29 ml 546.73 ml Exam Constitutional: alert Head: normocephalic ENMT: intubated Neck: non-tender, supple Respiratory: clear to auscultation Cardiovascular: regular rate and rhythm Gastrointestinal: soft Musculoskeletal: nl extremities to inspection Results Result Diagram: 09/11/16 0345 09/11/16 0345 Results 24 hrs Laboratory Tests Test 09/10/16 08:12 09/10/16 09:12 09/10/16 09:14 09/10/16 12:45 Blood Gas Specimen Source Blood arterial Arterial Blood Date Drawn 09/10/2016 9:15:47 AM Arterial Blood pH (Temp corrected) 7.570 *H Arterial Blood pCO2 (Temp correct) 22.5 L Arterial Blood pO2 (Temp corrected) 535.2 H Arterial Blood HCO3 20.2 L Arterial Blood Base Excess -0.9 Arterial Blood Oxygen Saturation 98.8 H Que Test N/A Arterial Blood Gas Puncture Site A-Line Arterial Blood Carboxyhemoglobin 0.3 Arterial Blood Methemoglobin 0.2 Oxyhemoglobin Percent 98.3 Total Hemoglobin 9.5 L Blood Gas Temperature 37.0 Blood Gas Respiration Rate 26.0 Blood Gas Actual Respiration Rate 30 Blood Gas Modality VENT - AC FiO2 35.0 Blood Gas Tidal Volume 400.0 Blood Gas Critical Value Read Back G RIDDHI RN Blood Gas Notified Whom JLD Blood Gas Notified Time 09/10/2016 9:37:38 AM Urine Color LT. YELLOW Urine Clarity CLEAR Urine pH 6.0 Urine Specific [place] <=1.005 L Urine Ketones NEGATIVE Urine Nitrite NEGATIVE Urine Bilirubin NEGATIVE Urine Urobilinogen 0.2 E.U./dL Urine Leukocyte Esterase TRACE H Urine Microscopic RBC 2-5 Urine Microscopic WBC 5-10 Urine Epithelial Cells FEW Urine Bacteria MODERATE Urine Hemoglobin 2+ H Urine Osmolality Urine Random Creatinine 18.87 L Urine Random Sodium < 13 L Urine Glucose NEGATIVE Urine Total Protein 39.0 H Bedside Glucose 150 122 Test 09/10/16 13:52 09/10/16 17:07 09/10/16 19:00 09/10/16 21:04 Sodium Level 129 L Potassium Level 3.3 L Chloride Level 98 Carbon Dioxide Level 23 Anion Gap 11 Blood Urea Nitrogen 24 H Creatinine 0.92 Glucose Level 106 # Calcium Level 6.4 L Bedside Glucose 105 100 Vancomycin Level Trough 17.6 Test 09/11/16 00:32 09/11/16 03:45 09/11/16 05:09 Bedside Glucose 108 93 White Blood Count 15.4 H Red Blood Count 3.14 L Hemoglobin 8.9 L Hematocrit 27.0 L Mean Corpuscular Volume 86.0 Mean Corpuscular Hemoglobin 28.3 L Mean Corpuscular Hemoglobin Concent 33.0 Red Cell Distribution Width 19.0 H Platelet Count 79 L Mean Platelet Volume 13.7 H Neutrophils % 94.3 H Lymphocytes % 1.6 L Monocytes % 2.3 Eosinophils % 0.0 Basophils % 0.1 Nucleated Red Blood Cells % 0.4 H Neutrophils # 14.5 H Lymphocytes # 0.3 L Monocytes # 0.4 Eosinophils # 0.0 Basophils # 0.0 Nucleated Red Blood Cells # 0.1 H Sodium Level 132 L Potassium Level 3.4 L Chloride Level 101 Carbon Dioxide Level 24 Anion Gap 10 Blood Urea Nitrogen 23 H Creatinine 0.93 Glucose Level 89 Lactic Acid Level 5.4 *H Calcium Level 6.0 L Phosphorus Level 2.8 Magnesium Level 2.3 Total Bilirubin 0.1 L Direct Bilirubin 0.00 Indirect Bilirubin 0.1 Aspartate Amino Transf (AST/SGOT) 78 H Alanine Aminotransferase (ALT/SGPT) 121 H Alkaline Phosphatase 225 H Total Protein 3.9 L Albumin 2.0 L Globulin 1.90 Albumin/Globulin Ratio 1.05 Medications Medications Current Medications Acetaminophen (Tylenol Tab) 650 mg Q6H PRN PO PAIN LEVEL 1-3 OR FEVER; Start at 18:30 Acetaminophen/ Hydrocodone Bitart ([place] (5/325)) 1 tab Q6H PRN PO MODERATE PAIN LEVEL 4-6; Start 09/05/16 at 18:30 Morphine Sulfate (morphine) 2 mg Q4H PRN IV SEVERE PAIN LEVEL 7-10; Start 09/05 at 18:30 Docusate Sodium (Colace) 100 mg Q12H PRN PO CONSTIPATION; Start 09/05/16 at 18: 30 Magnesium Hydroxide (Milk Of Mag) 30 ml DAILY PRN PO CONSTIPATION; Start at 18:30 Sodium Biphosphate/ Sodium Phosphate (Fleet Enema) 133 ml DAILY PRN MA CONSTIPATION; Start 09/05/16 at 18:30 Lorazepam 0.5 mg 0.5 mg Q6H PRN IV ANXIETY; Start 09/05/16 at 18:30 Piperacillin Sod/ Tazobactam Sod (Zosyn 2.25gm/ 50ml (Pmx)) 50 ml @ 100 mls/hr Q6 IVPB Last administered on 09/11/16 05:56; Admin Dose 100 MLS/HR; Start 09/06 at 00:00 Vancomycin HCl (Vanco Iv Per Pharmacy) VANCOMYCIN PER PHARMACY NOTE XX ; Start 09/05/16 at 18:30 Hydralazine HCl (Apresoline) 10 mg Q6H PRN IV ELEVATED BLOOD PRESSURE; Start at 18:30 Nitroglycerin (Nitroglycerin (Sl Tab) 0.4 Mg) 1 tab Q5M PRN SL ANGINA; Start at 18:30 Insulin Aspart (Novolog Insulin Pen) NOVOLOG *MILD* ALGORI... Q4 SC Last administered on 09/10/16 09:23; Admin Dose 1 UNIT; Start 09/05/16 at 21:00 Miscellaneous Information 1 ea NOTE XX ; Start 09/05/16 at 19:00 Glucose (Glutose) 15 gm Q15M PRN PO DECREASED GLUCOSE; Start 09/05/16 at 19:00 Glucose (Glutose) 22.5 gm Q15M PRN PO DECREASED GLUCOSE; Start 09/05/16 at 19: 00 Dextrose (D50w Syringe) 25 ml Q15M PRN IV DECREASED GLUCOSE; Start 09/05/16 at 19:00 Dextrose (D50w Syringe) 50 ml Q15M PRN IV DECREASED GLUCOSE; Start 09/05/16 at 19:00 Glucagon (Glucagen) 1 mg Q15M PRN IM DECREASED GLUCOSE; Start 09/05/16 at 19:00 Glucose 15 gm 15 gm Q15M PRN BUCCAL DECREASED GLUCOSE; Start 09/05/16 at 19:00 Vancomycin HCl 750 mg/Sodium Chloride 150 ml @ 75 mls/hr Q24H IVPB Last administered on 09/10/16 20:11; Admin Dose 75 MLS/HR; Start 09/06/16 at 20:00 Ondansetron HCl/ Sodium Chloride (Zofran Inj/NS) 54 ml @ 216 mls/hr Q6H PRN IV NAUSEA AND/OR VOMITING Last administered on 09/07/16 17:27; Admin Dose 216 MLS/HR; Start 09/06/16 at 10:30 Pantoprazole (Protonix Iv) 40 mg BID@06,18 IV Last administered on 09/11/16 05: 09; Admin Dose 40 MG; Start 09/08/16 at 18:00 Hydrocortisone 100 mg 100 mg Q8 IV Last administered on 09/11/16 05:09; Admin Dose 100 MG; Start 09/08/16 at 14:00 Metronidazole 100 ml @ 100 mls/hr Q8 IVPB Last administered on 09/11/16 06:32 ; Admin Dose 100 MLS/HR; Start 09/08/16 at 14:00 Fentanyl 100 ml @ 5 mls/hr TITRATE IV Last administered on 09/11/16 00:29; Admin Dose 5 MLS/HR; Start 09/08/16 at 15:30 Fluconazole/ Sodium Chloride (Diflucan 100 Mg/ NS (Pmx)) 50 ml @ 50 mls/hr Q24H IVPB Last administered on 09/10/16 14:35; Admin Dose 50 MLS/HR; Start at 14:30 Digoxin 125 mcg 125 mcg DAILY@13 IV Last administered on 09/10/16 12:42; Admin Dose 125 MCG; Start 09/10/16 at 13:00 Norepinephrine 16 mg/Sodium Chloride 500 ml @ 0 mls/hr TITRATE IV Last administered on 09/10/16 10:30; Admin Dose 20.62 MLS/HR; Start 09/10/16 at 10: 00 Phenylephrine HCl/ Sodium Chloride (Julio-Syneph/NS) 500 ml @ 18.75 mls/ hr TITRATE IV ; Start 09/10/16 at 10:00 Miscellaneous Information PLEASE CHANGE ALL IVPB F... DAILY XX Last administered on 09/10/16 08:58; Admin Dose 1 EA; Start 09/10/16 at 08:30 Vasopressin 60 unit/Sodium Chloride 103 ml @ 0 mls/hr Q12H IVPB ; Start at 09:00; Status Future Hold Sodium Chloride (NS) 1,000 ml @ 75 mls/hr [id number] IV Last administered on t 03:01; Admin Dose 75 MLS/HR; Start 09/10/16 at 10:00 MINOO SOTO M.D. Sep 11, 2016 08:00
[2016-09-11] MEDS: [UNRECOGNIZED DRUG - REMARK] XX SCH (08:05)
--- NOTE | 2016-09-11 09:57 | PN ---
DATE: 09/11/2016 SUBJECTIVE: The patient remains critically ill, on pressor support, on IV antibiotics. No other ac bishop paiute events noted overnight. No hemoptysis, hematemesis or hematochezia. OBJECTIVE: VITAL SIGNS: Blood pressure is 91/62, respirations 25, pulse 110, temperature 98.6. I's and O's: 3 liters in, 700 out. HEENT: Head is normocephalic. NECK: Supple. HEART: Regular rate. LUNGS: Showed diminished breath sounds at the base. ABDOMEN: Soft, nontender to palpation. No rebound or guarding. There are bilateral nephrostomy tub es. EXTREMITIES: Negative for clubbing or cyanosis. Positive edema, upper and lower extremities. DERMATOLOGIC: No rashes. MUSCULOSKELETAL: Have no joint effusion. NEUROLOGIC: The patient is obtunded, limited exam. LABORATORY DATA: Shows sodium 132, potassium 3.4, BUN 23, creatinine 0.93, lactic acid is 5.4. Whi te count 15.4, hemoglobin 9.9, hematocrit 27.0, platelet count is 79. IMAGING: Chest x-ray shows improved aeration and resolution of pulmonary congestion. ASSESSMENT AND PLAN: 1. Acute hyponatremia. Etiology is secondary to hypertonic fluids. The patient's sodium levels deutsch ve improved after discontinuing D5 water drips. The patient's urine studies are not consistent with SIADH, as urine sodium levels are markedly low. However, there does appear to be some impairment i n aquaresis. Plan at this point would be to continue free water restriction. There is no need for 3% sodium chloride at this time. Will monitor closely. 2. Hypokalemia. Continue to monitor and replete. 3. Volume overload. Etiology is likely secondary to capillary leak and third spacing. The patient continues to have noted lower extremity edema. Would defer diuretic therapy in the setting of shoc k and monitor closely. 4. Bilateral nephrostomy tubes. Etiology may be from hydronephrosis due to cervical cancer. The p atient's recent renal ultrasound shows no evidence of hydronephrosis. Renal function has been stab le. Continue to monitor. 5. Septic shock. Continue broad-spectrum antibiotics, continue pressor support, continue IV fluids , wean off pressors if possible. 6. Respiratory acidosis and metabolic alkalosis. The patient's ABG was reviewed. At this point angel l continue to monitor. Bicarbonate drip has been discontinued. 7. Ventilator-dependent respiratory failure. Vent settings were reviewed, ABG was reviewed. 8. Perforated bowel. The patient was seen by general surgery. No plan for intervention at this ti me. Continue conservative management. 9. Elevated troponin, non-STEMI type 2. Continue medical management. 10. Metastatic cervical cancer. Continue the current treatment plan. Follow up with oncology. 11. History of cardiomyopathy with an ejection fraction of 20%. Continue the current treatment fatou n. Follow up with cardiology. Would defer diuretic therapy at this time in the setting of shock. Please note, I spent over 35 minutes of critical care time with this patient. Dictated By: URIEL RAMESH/EHSAN Conf#: [id number] DID#: [id number]
--- NOTE | 2016-09-11 10:54 | CONS ---
Date/Time of Note Date/Time of Note DATE: 09/11/16 TIME: 10:51 Assessment/Plan Assessment/Plan Additional Assessment/Plan Ventilator setting; AC of 16, tidal volume 400, PEEP of 5, 35% FiO2. Patient currently on fentanyl drip at 70 mics per hour, Levophed at 6 mics per minute. Next Chest x-ray was reviewed from today which is totally clear. Next Assessment recommendations; 1. Patient admitted for severe sepsis from bowel perforation leading to respiratory failure. 2. Improving hypotension. 3. Vital metastatic cervical cancer. Continue supportive care. Start TPN. The patient is off pressor support she likely will undergo laparotomy. I did have a very detailed discussion the patient's son at bedside and answered all his questions. Consultation Date/Type/Reason Admit Date/Time September 05, 2016 at 16:23 Initial Consult Date 09/06/16 Type of Consultation: Pulmonary/critical care Referring Provider: ONEIDA COLEMAN 24 HR Interval Summary Free Text/Dictation Patient's condition remains critical but has remained stable. Patient currently on a tapering dose of Levophed. Patient was assessed for weaning yesterday however abdominal surgery is being contemplated due to bowel perforation therefore further weaning was discontinued. The patient remains intubated on mechanical ventilation. And has been re-sedated with fentanyl drip. General exam; elderly woman, orally intubated, currently in no distress. Sedated. Exam/Review of Systems Vital Signs Vitals Vital Signs Date Time Temp Pulse Resp B/P Pulse Ox O2 Delivery O2 Flow Rate FiO2 09/11/16 08:00 35 09/11/16 08:00 108 09/11/16 07:45 25 91/62 100 09/11/16 07:00 Mechanical Ventilator 09/11/16 04:00 97.8 09/08/16 13:00 10.0 Intake and Output 09/10/16 09/10/16 09/11/16 15:00 23:00 07:00 Intake Total 1473.96 ml 737.29 ml 983.10 ml Output Total 310 ml 180 ml 245 ml Balance 1163.96 ml 557.29 ml 738.10 ml Exam HEENT examination; supple neck, no JVD. No lymphadenopathy. Midline trachea. No thyromegaly. Orally intubated. Patient has a few missing teeth. Pupils are midsize and reactive to light bilaterally. Chest examination; clear to auscultation. S1-S2 audible, no murmurs. Regular rhythm. Abdomen examination; soft, nondistended. Bowel sounds are very sluggish to absent. No organomegaly felt. Patient does have bilateral nephrostomy tubes draining clear urine. Extremity examination; no peripheral edema. [employer] examination; patient is sedated. Results Result Diagram: 09/11/16 0345 09/11/16 0345 Results 24 hrs Laboratory Tests Test 09/10/16 12:45 09/10/16 13:52 09/10/16 17:07 09/10/16 19:00 Bedside Glucose 122 105 Sodium Level 129 L Potassium Level 3.3 L Chloride Level 98 Carbon Dioxide Level 23 Anion Gap 11 Blood Urea Nitrogen 24 H Creatinine 0.92 Glucose Level 106 # Calcium Level 6.4 L Vancomycin Level Trough 17.6 Test 09/10/16 21:04 09/11/16 00:32 09/11/16 03:45 09/11/16 05:09 Bedside Glucose 100 108 93 White Blood Count 15.4 H Red Blood Count 3.14 L Hemoglobin 8.9 L Hematocrit 27.0 L Mean Corpuscular Volume 86.0 Mean Corpuscular Hemoglobin 28.3 L Mean Corpuscular Hemoglobin Concent 33.0 Red Cell Distribution Width 19.0 H Platelet Count 79 L Mean Platelet Volume 13.7 H Neutrophils % 94.3 H Lymphocytes % 1.6 L Monocytes % 2.3 Eosinophils % 0.0 Basophils % 0.1 Nucleated Red Blood Cells % 0.4 H Neutrophils # 14.5 H Lymphocytes # 0.3 L Monocytes # 0.4 Eosinophils # 0.0 Basophils # 0.0 Nucleated Red Blood Cells # 0.1 H Sodium Level 132 L Potassium Level 3.4 L Chloride Level 101 Carbon Dioxide Level 24 Anion Gap 10 Blood Urea Nitrogen 23 H Creatinine 0.93 Glucose Level 89 Lactic Acid Level 5.4 *H Calcium Level 6.0 L Phosphorus Level 2.8 Magnesium Level 2.3 Total Bilirubin 0.1 L Direct Bilirubin 0.00 Indirect Bilirubin 0.1 Aspartate Amino Transf (AST/SGOT) 78 H Alanine Aminotransferase (ALT/SGPT) 121 H Alkaline Phosphatase 225 H Total Protein 3.9 L Albumin 2.0 L Globulin 1.90 Albumin/Globulin Ratio 1.05 Test 09/11/16 07:15 09/11/16 09:54 Blood Gas Specimen Source Blood arterial Arterial Blood Date Drawn 09/11/2016 7:40:16 AM Arterial Blood pH (Temp corrected) 7.519 H Arterial Blood pCO2 (Temp correct) 24.3 L Arterial Blood pO2 (Temp corrected) 163.4 H Arterial Blood HCO3 19.4 L Arterial Blood Base Excess -2.5 Arterial Blood Oxygen Saturation 98.1 H Que Test N/A Arterial Blood Gas Puncture Site A-Line Arterial Blood Carboxyhemoglobin 0.3 Arterial Blood Methemoglobin 0.2 Blood Gas A-a O2 Differential 57.9 H Oxyhemoglobin Percent 97.6 Total Hemoglobin 9.8 L Blood Gas Temperature 37.0 Blood Gas Respiration Rate 16.0 Blood Gas Actual Respiration Rate 24 Blood Gas Modality VENT - AC FiO2 35.0 Blood Gas Tidal Volume 400.0 Blood Gas Low PEEP Setting 5.0 Blood Gas Notified Whom JLD Blood Gas Notified Time 09/11/2016 7:59:11 AM Bedside Glucose 102 Medications Medications Current Medications Acetaminophen (Tylenol Tab) 650 mg Q6H PRN PO PAIN LEVEL 1-3 OR FEVER; Start at 18:30 Acetaminophen/ Hydrocodone Bitart ([place] (5/325)) 1 tab Q6H PRN PO MODERATE PAIN LEVEL 4-6; Start 09/05/16 at 18:30 Morphine Sulfate (morphine) 2 mg Q4H PRN IV SEVERE PAIN LEVEL 7-10; Start 09/05 at 18:30 Docusate Sodium (Colace) 100 mg Q12H PRN PO CONSTIPATION; Start 09/05/16 at 18: 30 Magnesium Hydroxide (Milk Of Mag) 30 ml DAILY PRN PO CONSTIPATION; Start at 18:30 Sodium Biphosphate/ Sodium Phosphate (Fleet Enema) 133 ml DAILY PRN [place] CONSTIPATION; Start 09/05/16 at 18:30 Lorazepam 0.5 mg 0.5 mg Q6H PRN IV ANXIETY; Start 09/05/16 at 18:30 Piperacillin Sod/ Tazobactam Sod (Zosyn 2.25gm/ 50ml (Pmx)) 50 ml @ 100 mls/hr Q6 IVPB Last administered on 09/11/16t 05:56; Admin Dose 100 MLS/HR; Start 09/06 at 00:00 Vancomycin HCl (Vanco Iv Per Pharmacy) VANCOMYCIN PER PHARMACY NOTE XX ; Start 09/05/16 at 18:30 Hydralazine HCl (Apresoline) 10 mg Q6H PRN IV ELEVATED BLOOD PRESSURE; Start at 18:30 Nitroglycerin (Nitroglycerin (Sl Tab) 0.4 Mg) 1 tab Q5M PRN SL ANGINA; Start at 18:30 Insulin Aspart (Novolog Insulin Pen) NOVOLOG *MILD* ALGORI... Q4 SC Last administered on 09/10/16 09:23; Admin Dose 1 UNIT; Start 09/05/16 at 21:00 Miscellaneous Information 1 ea NOTE XX ; Start 09/05/16 at 19:00 Glucose (Glutose) 15 gm Q15M PRN PO DECREASED GLUCOSE; Start 09/05/16 at 19:00 Glucose (Glutose) 22.5 gm Q15M PRN PO DECREASED GLUCOSE; Start 09/05/16 at 19: 00 Dextrose (D50w Syringe) 25 ml Q15M PRN IV DECREASED GLUCOSE; Start 09/05/16 at 19:00 Dextrose (D50w Syringe) 50 ml Q15M PRN IV DECREASED GLUCOSE; Start 09/05/16 at 19:00 Glucagon (Glucagen) 1 mg Q15M PRN IM DECREASED GLUCOSE; Start 09/05/16 at 19:00 Glucose 15 gm 15 gm Q15M PRN BUCCAL DECREASED GLUCOSE; Start 09/05/16 at 19:00 Vancomycin HCl 750 mg/Sodium Chloride 150 ml @ 75 mls/hr Q24H IVPB Last administered on 09/10/16 20:11; Admin Dose 75 MLS/HR; Start 09/06/16 at 20:00 Ondansetron HCl/ Sodium Chloride (Zofran Inj/NS) 54 ml @ 216 mls/hr Q6H PRN IV NAUSEA AND/OR VOMITING Last administered on 09/07/16 17:27; Admin Dose 216 MLS/HR; Start 09/06/16 at 10:30 Pantoprazole (Protonix Iv) 40 mg BID@06,18 IV Last administered on 09/11/16 05: 09; Admin Dose 40 MG; Start 09/08/16 at 18:00 Hydrocortisone 100 mg 100 mg Q8 IV Last administered on 09/11/16 05:09; Admin Dose 100 MG; Start 09/08/16 at 14:00 Metronidazole 100 ml @ 100 mls/hr Q8 IVPB Last administered on 09/11/16 06:32 ; Admin Dose 100 MLS/HR; Start 09/08/16 at 14:00 Fentanyl 100 ml @ 5 mls/hr TITRATE IV Last administered on 09/11/16 00:29; Admin Dose 5 MLS/HR; Start 09/08/16 at 15:30 Fluconazole/ Sodium Chloride (Diflucan 100 Mg/ NS (Pmx)) 50 ml @ 50 mls/hr Q24H IVPB Last administered on 09/10/16 14:35; Admin Dose 50 MLS/HR; Start at 14:30 Digoxin 125 mcg 125 mcg DAILY@13 IV Last administered on 09/10/16 12:42; Admin Dose 125 MCG; Start 09/10/16 at 13:00 Norepinephrine 16 mg/Sodium Chloride 500 ml @ 0 mls/hr TITRATE IV Last administered on 09/10/16 10:30; Admin Dose 20.62 MLS/HR; Start 09/10/16 at 10: 00 Phenylephrine HCl/ Sodium Chloride (Julio-Syneph/NS) 500 ml @ 18.75 mls/ hr TITRATE IV ; Start 09/10/16 at 10:00 Miscellaneous Information PLEASE CHANGE ALL IVPB F... DAILY XX Last administered on 09/11/16 08:05; Admin Dose 1 EA; Start 09/10/16 at 08:30 Vasopressin 60 unit/Sodium Chloride 103 ml @ 0 mls/hr Q12H IVPB ; Start at 09:00; Status Future Hold Sodium Chloride (NS) 1,000 ml @ 75 mls/hr [id number] IV Last administered on 03:01; Admin Dose 75 MLS/HR; Start 09/10/16 at 10:00 SKYLER ESTEVES Sep 11, 2016 10:54
[2016-09-11] MEDS ORDERED: LIDOCAINE 1% (MPF) 5 ML VIAL SC ONE ×2 (12:00→15:00)
--- NOTE | 2016-09-11 12:05 | PN ---
Date/Time of Note Date/Time of Note DATE: 09/11/16 TIME: 11:53 Assessment/Plan VTE Prophylaxis VTE Prophylaxis Intervention: SCD's Lines/Catheters IV C[facility]ter Type [facility]from [facility] Central Line Central line still needed: Yes Urinary Cath still in place: No Assessment/Plan Chief Complaint/Hosp Course ASSESSMENT: 1. Shock. Most probably underlying septic shock. Likely secondary to perforated sigmoid colon versus early pneumonia Continue IV pressors to keep SBP above 90. Continue empiric antibiotics. Infectious disease doctor has been consulted. Pancultures negative so far. 2. Sigmoid colon perforation. General surgery has been consulted, patient is not a candidate for any surgical intervention at this time secondary hypotension and septic shock. 3. History of metastatic cervical cancer. Status post radiation and chemo. Currently, getting palliative chemotherapy. Palliative care already following the patient. 4. Hypochromic anemia. Etiology unclear. Status post 2 units of PRBC transfusion. The patient is being followed by Gastroenterology. Status post colonoscopy. Continue proton pump inhibitors. 5. Bilateral nephrostomy tubes. Continue monitoring. 6. Acute respiratory failure. Pulmonology has been consulted, continue vent management 7. Cardiomyopathy with ejection fraction of 20%. Cardiology has been consulted 8. Possible underlying ileus. Continue p.r.n. antiemetics. Continue IV antibiotics. Gastroenterology following the patient. Deep venous thrombosis prophylaxis. Bilateral sequential compression devices. Gastrointestinal prophylaxis. Proton pump inhibitors. Prognosis: Fair PLAN: 1. Continue intensive care unit monitoring. 2. Continue pressors to keep systolic blood pressure above 90 3. Palliative care consult Problems: Subjective 24 Hr Interval Summary Free Text/Dictation Patient remains intubated Vent settin, FiO2 of 35% with PEEP of 5 Pressor: Levophed has been decreased from 12 to 8 jace Patient is awake and alert Exam/Review of Systems Vital Signs Vitals Vital Signs Date Time Temp Pulse Resp B/P Pulse Ox O2 Delivery O2 Flow Rate FiO2 09/11/16 08:00 35 09/11/16 08:00 108 09/11/16 07:45 25 91/62 100 09/11/16 07:00 Mechanical Ventilator 09/11/16 04:00 97.8 09/08/16 13:00 10.0 Intake and Output 09/10/16 09/10/16 09/11/16 15:00 23:00 07:00 Intake Total 1473.96 ml 737.29 ml 983.10 ml Output Total 310 ml 180 ml 245 ml Balance 1163.96 ml 557.29 ml 738.10 ml Exam General: The patient is intubated, Not in acute distress. HEENT: Atraumatic, normocephalic. The pupils are equal and round . Neck: Supple Chest: Normal Lungs: Clear to auscultation bilaterally Heart: Normal S1-S2, Regular rhythm and rate. Abdomen: Soft , nontender, nondistended , bowel sounds are present. Scar from previous surgeries are well-healed Extremities: Normal to inspection, no edema no cyanosis Neurologic: Follows command,The patient is awake, alert Results Result Diagram: 09/11/16 0345 09/11/16 0345 Results 24 hrs Laboratory Tests Test 09/10/16 12:45 09/10/16 13:52 09/10/16 17:07 09/10/16 19:00 Bedside Glucose 122 105 Sodium Level 129 L Potassium Level 3.3 L Chloride Level 98 Carbon Dioxide Level 23 Anion Gap 11 Blood Urea Nitrogen 24 H Creatinine 0.92 Glucose Level 106 # Calcium Level 6.4 L Vancomycin Level Trough 17.6 Test 09/10/16 21:04 09/11/16 00:32 09/11/16 03:45 09/11/16 05:09 Bedside Glucose 100 108 93 White Blood Count 15.4 H Red Blood Count 3.14 L Hemoglobin 8.9 L Hematocrit 27.0 L Mean Corpuscular Volume 86.0 Mean Corpuscular Hemoglobin 28.3 L Mean Corpuscular Hemoglobin Concent 33.0 Red Cell Distribution Width 19.0 H Platelet Count 79 L Mean Platelet Volume 13.7 H Neutrophils % 94.3 H Lymphocytes % 1.6 L Monocytes % 2.3 Eosinophils % 0.0 Basophils % 0.1 Nucleated Red Blood Cells % 0.4 H Neutrophils # 14.5 H Lymphocytes # 0.3 L Monocytes # 0.4 Eosinophils # 0.0 Basophils # 0.0 Nucleated Red Blood Cells # 0.1 H Sodium Level 132 L Potassium Level 3.4 L Chloride Level 101 Carbon Dioxide Level 24 Anion Gap 10 Blood Urea Nitrogen 23 H Creatinine 0.93 Glucose Level 89 Lactic Acid Level 5.4 *H Calcium Level 6.0 L Phosphorus Level 2.8 Magnesium Level 2.3 Total Bilirubin 0.1 L Direct Bilirubin 0.00 Indirect Bilirubin 0.1 Aspartate Amino Transf (AST/SGOT) 78 H Alanine Aminotransferase (ALT/SGPT) 121 H Alkaline Phosphatase 225 H Total Protein 3.9 L Albumin 2.0 L Globulin 1.90 Albumin/Globulin Ratio 1.05 Test 09/11/16 07:15 09/11/16 09:54 Blood Gas Specimen Source Blood arterial Arterial Blood Date Drawn 09/11/2016 7:40:16 AM Arterial Blood pH (Temp corrected) 7.519 H Arterial Blood pCO2 (Temp correct) 24.3 L Arterial Blood pO2 (Temp corrected) 163.4 H Arterial Blood HCO3 19.4 L Arterial Blood Base Excess -2.5 Arterial Blood Oxygen Saturation 98.1 H Que Test N/A Arterial Blood Gas Puncture Site A-Line Arterial Blood Carboxyhemoglobin 0.3 Arterial Blood Methemoglobin 0.2 Blood Gas A-a O2 Differential 57.9 H Oxyhemoglobin Percent 97.6 Total Hemoglobin 9.8 L Blood Gas Temperature 37.0 Blood Gas Respiration Rate 16.0 Blood Gas Actual Respiration Rate 24 Blood Gas Modality VENT - AC FiO2 35.0 Blood Gas Tidal Volume 400.0 Blood Gas Low PEEP Setting 5.0 Blood Gas Notified Whom JLD Blood Gas Notified Time 09/11/2016 7:59:11 AM Bedside Glucose 102 Medications Medications Current Medications Acetaminophen (Tylenol Tab) 650 mg Q6H PRN PO PAIN LEVEL 1-3 OR FEVER; Start at 18:30 Acetaminophen/ Hydrocodone Bitart ([place] (5/325)) 1 tab Q6H PRN PO MODERATE PAIN LEVEL 4-6; Start 09/05/16 at 18:30 Morphine Sulfate (morphine) 2 mg Q4H PRN IV SEVERE PAIN LEVEL 7-10; Start 09/05 at 18:30 Docusate Sodium (Colace) 100 mg Q12H PRN PO CONSTIPATION; Start 09/05/16 at 18: 30 Magnesium Hydroxide (Milk Of Mag) 30 ml DAILY PRN PO CONSTIPATION; Start at 18:30 Sodium Biphosphate/ Sodium Phosphate (Fleet Enema) 133 ml DAILY PRN [place] CONSTIPATION; Start 09/05/16 at 18:30 Lorazepam 0.5 mg 0.5 mg Q6H PRN IV ANXIETY; Start 09/05/16 at 18:30 Piperacillin Sod/ Tazobactam Sod (Zosyn 2.25gm/ 50ml (Pmx)) 50 ml @ 100 mls/hr Q6 IVPB Last administered on 09/11/16 05:56; Admin Dose 100 MLS/HR; Start 09/06 at 00:00 Vancomycin HCl (Vanco Iv Per Pharmacy) VANCOMYCIN PER PHARMACY NOTE XX ; Start 09/05/16 at 18:30 Hydralazine HCl (Apresoline) 10 mg Q6H PRN IV ELEVATED BLOOD PRESSURE; Start at 18:30 Nitroglycerin (Nitroglycerin (Sl Tab) 0.4 Mg) 1 tab Q5M PRN SL ANGINA; Start at 18:30 Insulin Aspart (Novolog Insulin Pen) NOVOLOG *MILD* ALGORI... Q4 SC Last administered on 09/10/16 09:23; Admin Dose 1 UNIT; Start 09/05/16 at 21:00 Miscellaneous Information 1 ea NOTE XX ; Start 09/05/16 at 19:00 Glucose (Glutose) 15 gm Q15M PRN PO DECREASED GLUCOSE; Start 09/05/16 at 19:00 Glucose (Glutose) 22.5 gm Q15M PRN PO DECREASED GLUCOSE; Start 09/05/16 at 19: 00 Dextrose (D50w Syringe) 25 ml Q15M PRN IV DECREASED GLUCOSE; Start 09/05/16 at 19:00 Dextrose (D50w Syringe) 50 ml Q15M PRN IV DECREASED GLUCOSE; Start 09/05/16 at 19:00 Glucagon (Glucagen) 1 mg Q15M PRN IM DECREASED GLUCOSE; Start 09/05/16 at 19:00 Glucose 15 gm 15 gm Q15M PRN BUCCAL DECREASED GLUCOSE; Start 09/05/16 at 19:00 Vancomycin HCl 750 mg/Sodium Chloride 150 ml @ 75 mls/hr Q24H IVPB Last administered on 09/10/16 20:11; Admin Dose 75 MLS/HR; Start 09/06/16 at 20:00 Ondansetron HCl/ Sodium Chloride (Zofran Inj/NS) 54 ml @ 216 mls/hr Q6H PRN IV NAUSEA AND/OR VOMITING Last administered on 09/07/16 17:27; Admin Dose 216 MLS/HR; Start 09/06/16 at 10:30 Pantoprazole (Protonix Iv) 40 mg BID@06,18 IV Last administered on 09/11/16 05: 09; Admin Dose 40 MG; Start 09/08/16 at 18:00 Hydrocortisone 100 mg 100 mg Q8 IV Last administered on 09/11/16 05:09; Admin Dose 100 MG; Start 09/08/16 at 14:00 Metronidazole 100 ml @ 100 mls/hr Q8 IVPB Last administered on 09/11/16 06:32 ; Admin Dose 100 MLS/HR; Start 09/08/16 at 14:00 Fentanyl 100 ml @ 5 mls/hr TITRATE IV Last administered on 09/11/16 00:29; Admin Dose 5 MLS/HR; Start 09/08/16 at 15:30 Fluconazole/ Sodium Chloride (Diflucan 100 Mg/ NS (Pmx)) 50 ml @ 50 mls/hr Q24H IVPB Last administered on 09/10/16 14:35; Admin Dose 50 MLS/HR; Start at 14:30 Digoxin 125 mcg 125 mcg DAILY@13 IV Last administered on 09/10/16 12:42; Admin Dose 125 MCG; Start 09/10/16 at 13:00 Norepinephrine 16 mg/Sodium Chloride 500 ml @ 0 mls/hr TITRATE IV Last administered on 09/10/16 10:30; Admin Dose 20.62 MLS/HR; Start 09/10/16 at 10: 00 Phenylephrine HCl/ Sodium Chloride (Julio-Syneph/NS) 500 ml @ 18.75 mls/ hr TITRATE IV ; Start 09/10/16 at 10:00 Miscellaneous Information PLEASE CHANGE ALL IVPB F... DAILY XX Last administered on 09/11/16 08:05; Admin Dose 1 EA; Start 09/10/16 at 08:30 Vasopressin 60 unit/Sodium Chloride 103 ml @ 0 mls/hr Q12H IVPB ; Start at 09:00; Status Future Hold Sodium Chloride (NS) 1,000 ml @ 75 mls/hr [id number] IV Last administered on 03:01; Admin Dose 75 MLS/HR; Start 09/10/16 at 10:00 VEENA DEL ANGEL MD Sep 11, 2016 12:05
[2016-09-11] MEDS: DIGOXIN 500 MCG INJ IV SCH (13:29)
--- NOTE | 2016-09-11 13:48 | PN ---
DATE: 09/11/2016 INFECTIOUS DISEASE PROGRESS NOTE SUBJECTIVE: No events overnight. The patient remains intubated, more awake and follows simple commands with pressors being titrated down. She is afebrile. Family at bedside. VITAL SIGNS: Temperature 97.8, pulse 107, respirations 19, blood pressure 98/69 , saturation 100 on 35% FIO2. WBC 15.4, H and H 8.9 and 27, platelets 79, neutrophils 94.3, BUN 23, creatinine 0.93. MICROBIOLOGY: Cultures remain negative. DIAGNOSTICS: Chest x-ray revealed improved aeration with resolution of pulmonary vascular congestion. INDWELLINGS: Endotracheal tube, NG tube, right chest Port-A-Cath, right femoral triple lumen catheter, right radial A-line, urostomy ANTIMICROBIALS: Remains on: 1. Fluconazole. 2. Flagyl. 3. Vancomycin. 4. Zosyn. PHYSICAL EXAMINATION: GENERAL: This is a chronically ill-appearing, middle-aged -[place] woman who is awake, comfortable on vent. HEENT: Head atraumatic, normocephalic. Sclerae anicteric. Buccal mucosa dry. NECK: Supple. Trachea midline. CHEST: Rise symmetrical. Breath sounds diminished to bases. HEART: S1, S2. ABDOMEN: Soft, bowel tones present. EXTREMITIES: Without cyanosis. ASSESSMENT: 1. Severe sepsis with shock. 2. Acute peritonitis secondary to perforated bowel. 3. Large pelvic mass with proximal sigmoid colon obstruction. 4. Metastatic cervical cancer. 5. Acute renal failure. 6. Hyponatremia. 7. Respiratory failure. PLAN: The patient remains hemodynamically unstable, still on pressors, clinically improving. She is being followed by multiple consultants, not a surgical candidate. Prognosis remains poor. We will continue her on current antibiotics. Dictated By: BIN MITTAL BOOSTER PUMP OPERATOR for RIDDHI PINK/EHSAN Conf#: [id number] DID#: [id number] LUZ ELENA
[2016-09-11] MEDS: FLUCONAZOLE 100 MG/NS (PMX) 50 ML IVPB SCH (14:30)
--- NOTE | 2016-09-11 14:50 | PN ---
Date/Time of Note Date/Time of Note DATE: 09/11/16 TIME: 14:47 Assessment/Plan VTE Prophylaxis VTE Prophylaxis Intervention: SCD's Lines/Catheters IV Catheter Type (from Nrs): Central Line Central line still needed: Yes Urinary Cath still in place: No Assessment/Plan Assessment/Plan * Post colonoscopy perforated viscus * large pelvic mass invading colon wall site of perforation * contrast leakage to pelvic area * ?Contained perforaton as no evidence of generalized peritonitis * Sepsis * Metastatic cervical CA/Adrenal * History of cervical cancer * S/P nephrostomy tube bilateral * EF 20% Plan * continue present supportive management Subjective 24 Hr Interval Summary Free Text/Dictation * Course revfranklyn newell RN * Patient seen and examined * still on pressors * no abdominal pain Exam/Review of Systems Vital Signs Vitals Vital Signs Date Time Temp Pulse Resp B/P Pulse Ox O2 Delivery O2 Flow Rate FiO2 09/11/16 14:15 101 22 87/61 100 09/11/16 14:00 Mechanical Ventilator 09/11/16 12:00 97.8 09/11/16 08:00 35 09/08/16 13:00 10.0 Intake and Output 09/10/16 09/10/16 09/11/16 15:00 23:00 07:00 Intake Total 1473.96 ml 737.29 ml 983.10 ml Output Total 310 ml 180 ml 245 ml Balance 1163.96 ml 557.29 ml 738.10 ml Exam Constitutional: frail Head: normocephalic ENMT: intubated Neck: non-tender, supple Respiratory: clear to auscultation, diminished breath sounds, normal air movement Cardiovascular: nl pulses, regular rate and rhythm Gastrointestinal: soft, No rebound or guarding Musculoskeletal: swelling Results Result Diagram: 09/11/16 0345 09/11/16 0345 Results 24 hrs Laboratory Tests Test 09/10/16 17:07 09/10/16 19:00 09/10/16 21:04 09/11/16 00:32 Bedside Glucose 105 100 108 Vancomycin Level Trough 17.6 Test 09/11/16 03:45 09/11/16 05:09 09/11/16 07:15 09/11/16 09:54 White Blood Count 15.4 H Red Blood Count 3.14 L Hemoglobin 8.9 L Hematocrit 27.0 L Mean Corpuscular Volume 86.0 Mean Corpuscular Hemoglobin 28.3 L Mean Corpuscular Hemoglobin Concent 33.0 Red Cell Distribution Width 19.0 H Platelet Count 79 L Mean Platelet Volume 13.7 H Neutrophils % 94.3 H Lymphocytes % 1.6 L Monocytes % 2.3 Eosinophils % 0.0 Basophils % 0.1 Nucleated Red Blood Cells % 0.4 H Neutrophils # 14.5 H Lymphocytes # 0.3 L Monocytes # 0.4 Eosinophils # 0.0 Basophils # 0.0 Nucleated Red Blood Cells # 0.1 H Sodium Level 132 L Potassium Level 3.4 L Chloride Level 101 Carbon Dioxide Level 24 Anion Gap 10 Blood Urea Nitrogen 23 H Creatinine 0.93 Glucose Level 89 Lactic Acid Level 5.4 *H Calcium Level 6.0 L Phosphorus Level 2.8 Magnesium Level 2.3 Total Bilirubin 0.1 L Direct Bilirubin 0.00 Indirect Bilirubin 0.1 Aspartate Amino Transf (AST/SGOT) 78 H Alanine Aminotransferase (ALT/SGPT) 121 H Alkaline Phosphatase 225 H Total Protein 3.9 L Albumin 2.0 L Globulin 1.90 Albumin/Globulin Ratio 1.05 Bedside Glucose 93 102 Blood Gas Specimen Source Blood arterial Arterial Blood Date Drawn 09/11/2016 7:40:16 AM Arterial Blood pH (Temp corrected) 7.519 H Arterial Blood pCO2 (Temp correct) 24.3 L Arterial Blood pO2 (Temp corrected) 163.4 H Arterial Blood HCO3 19.4 L Arterial Blood Base Excess -2.5 Arterial Blood Oxygen Saturation 98.1 H Que Test N/A Arterial Blood Gas Puncture Site A-Line Arterial Blood Carboxyhemoglobin 0.3 Arterial Blood Methemoglobin 0.2 Blood Gas A-a O2 Differential 57.9 H Oxyhemoglobin Percent 97.6 Total Hemoglobin 9.8 L Blood Gas Temperature 37.0 Blood Gas Respiration Rate 16.0 Blood Gas Actual Respiration Rate 24 Blood Gas Modality VENT - AC FiO2 35.0 Blood Gas Tidal Volume 400.0 Blood Gas Low PEEP Setting 5.0 Blood Gas Notified Whom JLD Blood Gas Notified Time 09/11/2016 7:59:11 AM Test 09/11/16 13:28 Bedside Glucose 101 Medications Medications Current Medications Acetaminophen (Tylenol Tab) 650 mg Q6H PRN PO PAIN LEVEL 1-3 OR FEVER; Start at 18:30 Acetaminophen/ Hydrocodone Bitart ([place] (5/325)) 1 tab Q6H PRN PO MODERATE PAIN LEVEL 4-6; Start 09/05/16 at 18:30 Morphine Sulfate (morphine) 2 mg Q4H PRN IV SEVERE PAIN LEVEL 7-10; Start 09/05 at 18:30 Docusate Sodium (Colace) 100 mg Q12H PRN PO CONSTIPATION; Start 09/05/16 at 18: 30 Magnesium Hydroxide (Milk Of Mag) 30 ml DAILY PRN PO CONSTIPATION; Start at 18:30 Sodium Biphosphate/ Sodium Phosphate (Fleet Enema) 133 ml DAILY PRN [place] CONSTIPATION; Start 09/05/16 at 18:30 Lorazepam 0.5 mg 0.5 mg Q6H PRN IV ANXIETY; Start 09/05/16 at 18:30 Piperacillin Sod/ Tazobactam Sod (Zosyn 2.25gm/ 50ml (Pmx)) 50 ml @ 100 mls/hr Q6 IVPB Last administered on 09/11/16 13:29; Admin Dose 100 MLS/HR; Start 09/06 at 00:00 Vancomycin HCl (Vanco Iv Per Pharmacy) VANCOMYCIN PER PHARMACY NOTE XX ; Start 09/05/16 at 18:30 Hydralazine HCl (Apresoline) 10 mg Q6H PRN IV ELEVATED BLOOD PRESSURE; Start at 18:30 Nitroglycerin (Nitroglycerin (Sl Tab) 0.4 Mg) 1 tab Q5M PRN SL ANGINA; Start at 18:30 Insulin Aspart (Novolog Insulin Pen) NOVOLOG *MILD* ALGORI... Q4 SC Last administered on 09/10/16 09:23; Admin Dose 1 UNIT; Start 09/05/16 at 21:00 Miscellaneous Information 1 ea NOTE XX ; Start 09/05/16 at 19:00 Glucose (Glutose) 15 gm Q15M PRN PO DECREASED GLUCOSE; Start 09/05/16 at 19:00 Glucose (Glutose) 22.5 gm Q15M PRN PO DECREASED GLUCOSE; Start 09/05/16 at 19: 00 Dextrose (D50w Syringe) 25 ml Q15M PRN IV DECREASED GLUCOSE; Start 09/05/16 at 19:00 Dextrose (D50w Syringe) 50 ml Q15M PRN IV DECREASED GLUCOSE; Start 09/05/16 at 19:00 Glucagon (Glucagen) 1 mg Q15M PRN IM DECREASED GLUCOSE; Start 09/05/16 at 19:00 Glucose 15 gm 15 gm Q15M PRN BUCCAL DECREASED GLUCOSE; Start 09/05/16 at 19:00 Vancomycin HCl 750 mg/Sodium Chloride 150 ml @ 75 mls/hr Q24H IVPB Last administered on 09/10/16 20:11; Admin Dose 75 MLS/HR; Start 09/06/16 at 20:00 Ondansetron HCl/ Sodium Chloride (Zofran Inj/NS) 54 ml @ 216 mls/hr Q6H PRN IV NAUSEA AND/OR VOMITING Last administered on 09/07/16 17:27; Admin Dose 216 MLS/HR; Start 09/06/16 at 10:30 Pantoprazole (Protonix Iv) 40 mg BID@06,18 IV Last administered on 09/11/16 05: 09; Admin Dose 40 MG; Start 09/08/16 at 18:00 Hydrocortisone 100 mg 100 mg Q8 IV Last administered on 09/11/16 13:29; Admin Dose 100 MG; Start 09/08/16 at 14:00 Metronidazole 100 ml @ 100 mls/hr Q8 IVPB Last administered on 09/11/16 13:29 ; Admin Dose 100 MLS/HR; Start 09/08/16 at 14:00 Fentanyl 100 ml @ 5 mls/hr TITRATE IV Last administered on 09/11/16 00:29; Admin Dose 5 MLS/HR; Start 09/08/16 at 15:30 Fluconazole/ Sodium Chloride (Diflucan 100 Mg/ NS (Pmx)) 50 ml @ 50 mls/hr Q24H IVPB Last administered on 09/10/16 14:35; Admin Dose 50 MLS/HR; Start at 14:30 Digoxin 125 mcg 125 mcg DAILY@13 IV Last administered on 09/11/16 13:29; Admin Dose 125 MCG; Start 09/10/16 at 13:00 Norepinephrine 16 mg/Sodium Chloride 500 ml @ 0 mls/hr TITRATE IV Last administered on 09/10/16 10:30; Admin Dose 20.62 MLS/HR; Start 09/10/16 at 10: 00 Phenylephrine HCl/ Sodium Chloride (Julio-Syneph/NS) 500 ml @ 18.75 mls/ hr TITRATE IV ; Start 09/10/16 at 10:00 Miscellaneous Information PLEASE CHANGE ALL IVPB F... DAILY XX Last administered on 09/11/16 08:05; Admin Dose 1 EA; Start 09/10/16 at 08:30 Vasopressin 60 unit/Sodium Chloride 103 ml @ 0 mls/hr Q12H IVPB ; Start at 09:00; Status Future Hold Sodium Chloride 1,000 ml @ 75 mls/hr [id number] IV Last administered on 09/11/16 03:01; Admin Dose 75 MLS/HR; Start 09/10/16 at 10:00; Stop 09/11/16 at 15:00 Total Parenteral Nutrition 1,000 ml @ 40 mls/hr Q24H IV ; Start 09/11/16 at 16: 00 Fat Emulsion Intravenous (Liposyn Ii 20%) 500 ml @ 20.833 mls/ hr Q24H IV ; Start 09/11/16 at 16:00 SAKSHI MENA MD Sep 11, 2016 14:50
--- NOTE | 2016-09-11 17:02 | RADRPT ---
PROCEDURE: US guidance for PICC line CLINICAL INDICATION: PICC line placement TECHNIQUE: Multiple real-time images were acquired of the patient's arm utilizing a high resolutio n transducer. This was performed by the PICC line nurse for venous access. COMPARISON: None FINDINGS: Ultrasound guidance for PICC line placement. IMPRESSION: Ultrasound guidance for PICC line placement. RPTAT: AA .Jovany Miller MD, MD Date Time Electronically viewed and signed by .Jovany Miller MD, on 09/11/2016 17:02 .S/
[2016-09-11] MEDS: FAT EMULSION 20% 500 ML IV SCH (17:59)
--- NOTE | 2016-09-11 17:59 | RADRPT ---
PROCEDURE: XR Chest. CLINICAL INDICATION: Check Line Placement TECHNIQUE: Single frontal view of the chest was obtained. COMPARISON: Chest x-ray from 09/11/2016 and 06:28 hours FINDINGS: The endotracheal tube, enteric tube, and right-sided Port-A-Cath are unchanged in position. There has been interval placement of a left-sided PICC line with its tip in the mid to distal SVC. The heart and mediastinum are within normal limits. There are no focal infiltrates. There is no significant pleural effusion or pneumothorax. IMPRESSION: Interval placement of a left-sided PICC line with its tip in the mid to distal SVC. Otherwise, no significant interval change compared to the prior chest x-ray from 0628 hours. RPTAT: EE Physician Daniella Date Time Electronically viewed and signed by Manpreet Simon Physician on 09/11/2016 17:59 RA/
[2016-09-11] MEDS: TPN 1,000 ML IV SCH (18:00)
[2016-09-11] MEDS ORDERED: SOD CHLORIDE 0.9% IV SCH (20:30)
[2016-09-11] MEDS ORDERED: NOREPINEPHRINE IV SCH (20:30)
[2016-09-11] MEDS: VANCOMYCIN 500MG/NS (PMX) 100 ML IVPB SCH (20:43)
[2016-09-12] VITALS (103 sets, daily range): BP systolic 83–152; BP diastolic 48–81; PULSE 86–123; RESP 0–37
[2016-09-12] MEDS: NORepinephrine 16 MG in SOD CHLORIDE 0.9% 484 ML IV SCH ×2
[2016-09-12] MEDS: INSULIN ASPART [NOVOLOG] 3 ML PEN SC SCH ×6 (01:00→20:27)
[2016-09-12 05:25] LABS: ADD SCAN DIFF NO
[2016-09-12] MEDS: FENTAnyl (DRIP) 1000 mcg/100mL 100 ML IV SCH ×2 (05:41→18:29)
[2016-09-12] MEDS: HYDROCORTISONE 100 MG INJ IV SCH ×3 (05:42→22:32)
[2016-09-12] MEDS: PANTOPRAZOLE 40 MG INJ IV SCH ×2 (05:46→18:19)
[2016-09-12] MEDS: PIPER-TAZO 2.25 GM (PMX) 50 ML IVPB SCH ×3 (05:46→18:19)
[2016-09-12] MEDS: metroNIDAZOLE 500 MG/NS (PMX) 100 ML IVPB SCH ×3 (05:47→22:32)
[2016-09-12 05:49] LABS: CALCIUM 6.2 mg/dl (8.4-10.2); CREATININE 1.01 mg/dl (0.44-1.00); POTASSIUM 3.2 mmol/L (3.5-5.1)
[2016-09-12 05:51] LABS: ABNORMAL IP MESSAGE 1; BASOPHILS % 0.2 % (0.0-2.0); HEMATOCRIT 25.1 % (37.0-47.0); HEMOGLOBIN 8.6 g/dl (12.0-16.0); LYMPHOCYTES # 0.3 10^3/ul (0.8-2.9); MEAN CORPUSCULAR HEMOGLOBIN 29.7 pg (29.0-33.0); MEAN CORPUSCULAR HGB CONC 34.3 g/dl (32.0-37.0); MEAN CORPUSCULAR VOLUME 86.6 fl (82.0-101.0); MEAN PLATELET VOLUME 13.9 fl (7.4-10.4); MONOCYTE # 0.3 10^3/ul (0.3-0.9); NEUTROPHIL # 16.4 10^3/ul (1.6-7.5); NUCLEATED RED BLOOD CELLS # 0.2 10^3/ul (0.0-0.0); NUCLEATED RED BLOOD CELLS% 1.2 /100WBC (0.0-0.0); PLATELET COUNT 77 10^3/UL (140-415); WHITE BLOOD COUNT 17.4 10^3/ul (4.8-10.8)
[2016-09-12 05:52] LABS: NEUTROPHILS % 94.1 % (39.0-77.0)
--- NOTE | 2016-09-12 07:01 | PN ---
DATE: 09/11/2016 CARDIOLOGY FOLLOWUP SUBJECTIVE: Discussed with the staff. , the patient is still hypotensive, in shock and on Lev ophed drip. Also, has been able to wean down Levophed slowly. Still on the vent, 30%. Responds ap propriately. Denies any chest pain or pressure to me. Remains in sinus tachycardia. Rhythm strip was reviewed. MEDICATIONS: Reviewed as per medication reconciliation, which was personally reviewed. PHYSICAL EXAMINATION: VITAL SIGNS: Temperature 97.8, heart rate of 108, blood pressure of 110/67, respiratory rate of 18, saturating 100%. HEENT: Normocephalic, atraumatic. Status post intubation on the vent. CARDIOVASCULAR: Tachycardic, systolic murmur. PULMONARY: Mild rhonchi. No wheezes. GASTROINTESTINAL: Distended and hard. EXTREMITIES: With diffuse 4+ bilateral lower extremity edema. NEUROLOGIC: Drowsy, sedated, sleepy, but responds appropriately, opens her eyes. . LABORATORY: WBC 15.4, hemoglobin 8.9, platelets of 79. Sodium 132, potassium 3.4, BUN of 23, creat inine 0.93, glucose of 89. Lactic acid is 5.4. AST of 78, ALT of 121. Albumin is 2.0. ASSESSMENT AND PLAN: 1. Septic shock. 2. Hypoxemic, hypercapnic respiratory failure, acute, currently intubated on the vent. 3. Severe cardiomyopathy, ejection fraction about 20%, probably nonischemic, although cannot be ass essed at this point. 4. Severe anemia, status post transfusion. 5. History of metastatic cervical cancer. 6. Mildly abnormal troponin related to above, most likely associated to lactic acidosis or severe s epsis. 7. Electrolyte abnormalities, hypokalemia and hyponatremia. 8. Malnutrition and low albumin level. RECOMMENDATIONS: Continue supportive care. Levophed will be continued as needed and will try to we an her off as tolerated. Antibiotic is managed as per internal medicine. Follow up with the darren stanton identity management consultant recommendations including general surgery as well as hematology/oncology consulta tion. Antibiotic is managed as per ID. Vent support will be continued. Continue with the ICU care. I will continue with the IV digoxin for now as well. Dictated By: JIM ABDI MD AV/EHSAN Conf#: [id number] DID#: [id number] CC: VEENA DEL ANGEL MD;*End*
[2016-09-12] MEDS: POTASSIUM CHLORIDE 50 ML IVPB PRN ×4 (07:58→10:43)
[2016-09-12] MEDS: [UNRECOGNIZED DRUG - REMARK] XX SCH (08:52)
[2016-09-12] MEDS: SOD CHLORIDE 0.9% 1,000 ML IV SCH (09:00)
--- NOTE | 2016-09-12 09:25 | PN ---
DATE: 09/12/2016 SUBJECTIVE: The patient remains critically ill, on pressor support. No hemoptysis, hematemesis or hematochezia. The patient was initiated on TPN yesterday. Urinary output from bilateral nephrostom y tubes have been marginal. No other acute events noted. No hemoptysis, hematemesis or hematochezi a. OBJECTIVE: VITAL SIGNS: Blood pressure 123/67, respirations 16, pulse 98, temperature is 98.6. I's AND O'S: The patient had 2.6 liters in, with urinary output of only 290. HEENT: Head is normocephalic. NECK: Supple. HEART: Regular rate. LUNGS: Showed diminished breath sounds at the base. ABDOMEN: Soft, nontender to palpation. No rebound or guarding. EXTREMITIES: Negative for clubbing or cyanosis. Positive edema, +4. DERMATOLOGIC: No rashes. MUSCULOSKELETAL: Have no joint effusion. NEUROLOGIC: No change in exam. MEDICATIONS: The patient's medications have been reviewed. LABORATORY DATA: Shows white count 17.4, hemoglobin 8.6, hematocrit 25.1, platelet count is 77. So dium 129, potassium 3.2, chloride 98, BUN 25, creatinine 1.01. The patient's cultures have been rev iewed. IMAGING: Chest x-ray shows resolution of pulmonary congestion. ASSESSMENT AND PLAN: 1. Acute hyponatremia. Etiology is unclear, likely multifactorial in conjunction with hypotonic fl uid, sepsis, questionable SIADH. The patient's urine studies; however, were not consistent with CB DH, as urine studies were remarkably low. However, there still does appear to be somewhat impairmen t in aquaresis. The patient's sodium levels have improved with free water restriction and removing hypotonic fluids. At this point, continue the current treatment plan, continue to monitor sodium le vels closely. Please note, hypokalemia was also a contributing factor to hyponatremia, and potassiu m levels will be corrected. 2. Hypokalemia. Will monitor and replete with potassium chloride. 3. Volume overload secondary capillary leak, third spacing and congestive heart failure. The patie nt remains on pressor support. Would continue to defer diuretic therapy; however, if the patient is able to be weaned off pressors, would consider aggressively diuresing. 4. Bilateral nephrostomy tubes. Etiology is likely from hydronephrosis due to a history of cervica l cancer. The patient's urinary output has been adequate and recent renal ultrasound shows no evide nce of hydronephrosis. Continue to monitor. 5. Nonoliguric acute kidney injury. Etiology is likely secondary to hemodynamics, sepsis. Continu e to monitor renal functions closely. Continue supportive care, renally dose meds, and avoid nephrot oxins. 6. Septic shock. Etiology is likely from perforated bowel. Continue the current antibiotic regime n. Continue pressor support and IV fluids. 7. Ventilatory-dependent respiratory failure. Vent settings have been reviewed. ABG has been revi ewed. Continue to monitor. 8. Perforated bowel. Continue the current treatment plan. Patient was seen by general surgeon. N o plan for intervention at this time. 9. Elevated troponin and [id number] myocardial infarction type 2. Continue medical managemen t. 10. History of metastatic cervical cancer. Continue medical management. 11. History of cardiomyopathy, with an ejection fraction of 20%. Continue to monitor. Follow up w [facility]. Please note, I spent over 30 minutes of critical care time with this patient. Dictated By: URIEL RAMESH/NTS Conf#: [id number] DID#: [id number]
--- NOTE | 2016-09-12 09:36 | PN ---
Date/Time of Note Date/Time of Note DATE: 09/12/16 TIME: 09:32 Assessment/Plan VTE Prophylaxis VTE Prophylaxis Intervention: SCD's Lines/Catheters IV Catheter Type (from [facility]): PICC Line Central line still needed: Yes Urinary Cath still in place: No Assessment/Plan Chief Complaint/Hosp Course ASSESSMENT: 1. Shock. Most probably underlying septic shock. Likely secondary to perforated sigmoid colon versus early pneumonia Continue IV pressors to keep SBP above 90. Continue empiric antibiotics. Infectious disease doctor has been consulted. Pancultures negative so far. 2. Post colonoscopy perforated viscus large pelvic mass invading colon wall site of perforation, contrast leakage to pelvic area, Contained perforation as no evidence of generalized peritonitis Continue antibiotics, Zosyn and vancomycin General surgery has been consulted, patient is not a candidate for any surgical intervention at this time secondary hypotension and septic shock. 3. History of metastatic cervical cancer. Status post radiation and chemo. Currently, getting palliative chemotherapy. Palliative care already following the patient. 4. Hypochromic anemia. Etiology unclear. Status post 2 units of PRBC transfusion. The patient is being followed by Gastroenterology. Status post colonoscopy. Continue proton pump inhibitors. 5. Bilateral nephrostomy tubes. Continue monitoring. 6. Acute respiratory failure. Pulmonology has been consulted, continue vent management 7. Cardiomyopathy with ejection fraction of 20%. Cardiology has been consulted 8. Possible underlying ileus. Continue p.r.n. antiemetics. Continue Zosyn and vancomycin. Gastroenterology following the patient. Deep venous thrombosis prophylaxis. Bilateral sequential compression devices. Gastrointestinal prophylaxis. Proton pump inhibitors. Prognosis: Fair PLAN: 1. Continue intensive care unit monitoring. 2. Continue pressors to keep systolic blood pressure above 90 3. [employer] management and recommendations is appreciated Problems: Subjective 24 Hr Interval Summary Free Text/Dictation Patient remains intubated and on pressors Pressors via levophed at 4 jace Tolerating TPN NG tube in place Patient is able to follow commands respond to verbal stimuli Exam/Review of Systems Vital Signs Vitals Vital Signs Date Time Temp Pulse Resp B/P Pulse Ox O2 Delivery O2 Flow Rate FiO2 09/12/16 08:00 92 09/12/16 08:00 30 09/12/16 07:30 16 123/67 100 09/12/16 06:00 Mechanical Ventilator 09/12/16 04:00 97.5 09/08/16 13:00 10.0 Intake and Output 09/11/16 09/11/16 09/12/16 15:00 23:00 07:00 Intake Total 949.74 ml 813.082 ml 647.941 ml Output Total 140 ml 105 ml 195 ml Balance 809.74 ml 708.082 ml 452.941 ml Exam General: The patient is well-developed, Not in acute distress. HEENT: Atraumatic, normocephalic. The pupils are equal and round . NG tube in place, intubated Neck: Supple Chest: Normal expansion of the thorax during inspiration Lungs: Clear to auscultation bilaterally Heart: Normal S1-S2, Regular rhythm and rate. Abdomen: Soft , nontender, nondistended , bowel sounds are present. Extremities: Normal to inspection, no edema no cyanosis Neurologic:The patient is awake, alert Results Result Diagram: 09/12/16 0400 09/12/16 0400 Results 24 hrs Laboratory Tests Test 09/11/16 09:54 09/11/16 13:28 09/11/16 18:02 09/11/16 20:44 Bedside Glucose 102 101 106 132 Test 09/12/16 00:57 09/12/16 04:00 09/12/16 05:40 09/12/16 08:49 Bedside Glucose 161 176 183 White Blood Count 17.4 H Red Blood Count 2.90 L Hemoglobin 8.6 L Hematocrit 25.1 L Mean Corpuscular Volume 86.6 Mean Corpuscular Hemoglobin 29.7 Mean Corpuscular Hemoglobin Concent 34.3 Red Cell Distribution Width 19.0 H Platelet Count 77 L Mean Platelet Volume 13.9 H Neutrophils % 94.1 H Lymphocytes % 2.0 L Monocytes % 2.0 Eosinophils % 0.0 Basophils % 0.2 Nucleated Red Blood Cells % 1.2 H Neutrophils # 16.4 H Lymphocytes # 0.3 L Monocytes # 0.3 Eosinophils # 0.0 Basophils # 0.0 Nucleated Red Blood Cells # 0.2 H Sodium Level 129 L Potassium Level 3.2 L Chloride Level 98 Carbon Dioxide Level 22 Anion Gap 12 Blood Urea Nitrogen 25 H Creatinine 1.01 H Glucose Level 156 Calcium Level 6.2 L Medications Medications Current Medications Acetaminophen (Tylenol Tab) 650 mg Q6H PRN PO PAIN LEVEL 1-3 OR FEVER; Start at 18:30 Acetaminophen/ Hydrocodone Bitart ([place] (5/325)) 1 tab Q6H PRN PO MODERATE PAIN LEVEL 4-6; Start 09/05/16 at 18:30 Morphine Sulfate (morphine) 2 mg Q4H PRN IV SEVERE PAIN LEVEL 7-10; Start 09/05 at 18:30 Docusate Sodium (Colace) 100 mg Q12H PRN PO CONSTIPATION; Start 09/05/16 at 18: 30 Magnesium Hydroxide (Milk Of Mag) 30 ml DAILY PRN PO CONSTIPATION; Start at 18:30 Sodium Biphosphate/ Sodium Phosphate (Fleet Enema) 133 ml DAILY PRN [place] CONSTIPATION; Start 09/05/16 at 18:30 Lorazepam 0.5 mg 0.5 mg Q6H PRN IV ANXIETY; Start 09/05/16 at 18:30 Piperacillin Sod/ Tazobactam Sod (Zosyn 2.25gm/ 50ml (Pmx)) 50 ml @ 100 mls/hr Q6 IVPB Last administered on 09/12/16 05:46; Admin Dose 100 MLS/HR; Start 09/06 at 00:00 Vancomycin HCl (Vanco Iv Per Pharmacy) VANCOMYCIN PER PHARMACY NOTE XX ; Start 09/05/16 at 18:30 Hydralazine HCl (Apresoline) 10 mg Q6H PRN IV ELEVATED BLOOD PRESSURE; Start at 18:30 Nitroglycerin (Nitroglycerin (Sl Tab) 0.4 Mg) 1 tab Q5M PRN SL ANGINA; Start at 18:30 Insulin Aspart (Novolog Insulin Pen) NOVOLOG *MILD* ALGORI... Q4 SC Last administered on 09/12/16 08:51; Admin Dose 2 UNIT; Start 09/05/16 at 21:00 Miscellaneous Information 1 ea NOTE XX ; Start 09/05/16 at 19:00 Glucose (Glutose) 15 gm Q15M PRN PO DECREASED GLUCOSE; Start 09/05/16 at 19:00 Glucose (Glutose) 22.5 gm Q15M PRN PO DECREASED GLUCOSE; Start 09/05/16 at 19: 00 Dextrose (D50w Syringe) 25 ml Q15M PRN IV DECREASED GLUCOSE; Start 09/05/16 at 19:00 Dextrose (D50w Syringe) 50 ml Q15M PRN IV DECREASED GLUCOSE; Start 09/05/16 at 19:00 Glucagon (Glucagen) 1 mg Q15M PRN IM DECREASED GLUCOSE; Start 09/05/16 at 19:00 Glucose 15 gm 15 gm Q15M PRN BUCCAL DECREASED GLUCOSE; Start 09/05/16 at 19:00 Ondansetron HCl/ Sodium Chloride (Zofran Inj/NS) 54 ml @ 216 mls/hr Q6H PRN IV NAUSEA AND/OR VOMITING Last administered on 09/07/16 17:27; Admin Dose 216 MLS/HR; Start 09/06/16 at 10:30 Pantoprazole (Protonix Iv) 40 mg BID@06,18 IV Last administered on 09/12/16 05: 46; Admin Dose 40 MG; Start 09/08/16 at 18:00 Hydrocortisone 100 mg 100 mg Q8 IV Last administered on 09/12/16 05:42; Admin Dose 100 MG; Start 09/08/16 at 14:00 Metronidazole 100 ml @ 100 mls/hr Q8 IVPB Last administered on 09/12/16 05:47 ; Admin Dose 100 MLS/HR; Start 09/08/16 at 14:00 Fentanyl 100 ml @ 5 mls/hr TITRATE IV Last administered on 09/12/16 05:41; Admin Dose 5 MLS/HR; Start 09/08/16 at 15:30 Fluconazole/ Sodium Chloride (Diflucan 100 Mg/ NS (Pmx)) 50 ml @ 50 mls/hr Q24H IVPB Last administered on 09/11/16 14:30; Admin Dose 50 MLS/HR; Start 09/09/16 at 14:30 Digoxin 125 mcg 125 mcg DAILY@13 IV Last administered on 09/11/16 13:29; Admin Dose 125 MCG; Start 09/10/16 at 13:00 Phenylephrine HCl/ Sodium Chloride (Julio-Syneph/NS) 500 ml @ 18.75 mls/ hr TITRATE IV ; Start 09/10/16 at 10:00 Miscellaneous Information PLEASE CHANGE ALL IVPB F... DAILY XX Last administered on 09/11/16 08:05; Admin Dose 1 EA; Start 09/10/16 at 08:30 Vasopressin 60 unit/Sodium Chloride 103 ml @ 0 mls/hr Q12H IVPB ; Start at 09:00; Status Future Hold Total Parenteral Nutrition 1,000 ml @ 40 mls/hr Q24H IV Last administered on 18:00; Admin Dose 40 MLS/HR; Start 09/11/16 at 16:00 Fat Emulsion Intravenous 500 ml @ 20.833 mls/ hr Q24H IV Last administered on 09/11/16 17:59; Admin Dose 20.833 MLS/HR; Start 09/11/16 at 16:00 Vancomycin HCl 100 ml @ 100 mls/hr Q24H IVPB Last administered on 09/11/16 20: 43; Admin Dose 100 MLS/HR; Start 09/11/16 at 20:00 Norepinephrine 16 mg/Sodium Chloride 500 ml @ 0 mls/hr TITRATE IV Last administered on 09/12/16 00:00; Admin Dose 15 MLS/HR; Start 09/11/16 at 20:31 Sodium Chloride (NS) 1,000 ml @ 50 mls/hr Q20H IV ; Start 09/12/16 at 09:00 VEENA DEL ANGEL MD Sep 12, 2016 09:36
--- NOTE | 2016-09-12 09:58 | CONS ---
Date/Time of Note Date/Time of Note DATE: 09/12/16 TIME: 09:56 Assessment/Plan Assessment/Plan Additional Assessment/Plan Ventilator setting; AC of 16, tidal volume 400, PEEP of 5, 30% FiO2. Patient currently on TPN. Levophed at 4 mics per minute, fentanyl drip at 70 mics per hour. Assessment recommendations; 1. Patient admitted for respiratory failure from severe sepsis from bowel perforation. 2. Widely metastatic cervical cancer. 3. Hypotension from sepsis. Continue current treatment. Patient currently is too unstable for a laparotomy. I did have a very detailed discussion the patient's daughter at bedside and answered all her questions. 35 minutes of critical care time was spent evaluating the patient. Consultation Date/Type/Reason Admit Date/Time September 05, 2016 at 16:23 Initial Consult Date 09/06/16 Type of Consultation: Pulmonary/critical care Referring Provider: ONEIDA COLEMAN 24 HR Interval Summary Free Text/Dictation Patient's condition remains critical. Still requiring full ventilator support. Also requiring pressor support for hypotension. General exam; elderly lady, on ventilator via endotracheal tube, currently in no distress, sedated. Exam/Review of Systems Vital Signs Vitals Vital Signs Date Time Temp Pulse Resp B/P Pulse Ox O2 Delivery O2 Flow Rate FiO2 09/12/16 08:00 92 09/12/16 08:00 30 09/12/16 07:30 16 123/67 100 09/12/16 06:00 Mechanical Ventilator 09/12/16 04:00 97.5 09/08/16 13:00 10.0 Intake and Output 09/11/16 09/11/16 09/12/16 15:00 23:00 07:00 Intake Total 949.74 ml 813.082 ml 647.941 ml Output Total 140 ml 105 ml 195 ml Balance 809.74 ml 708.082 ml 452.941 ml Exam HEENT exam is; supple neck, no JVD. No lymphadenopathy. Midline trachea. No thyromegaly. Orally intubated. No neck masses. Pupils are small bilaterally. Chest examination; clear to auscultation. S1-S2 audible, no murmurs. Regular rhythm. Abdomen exam is; soft, nondistended. No organomegaly. Bowel sounds are absent. There is a well-healed infraumbilical scar. Extremity exam; no peripheral edema. No clubbing. Pulses 1+ bilaterally. [employer] examination; patient is sedated. Results Result Diagram: 09/12/16 0400 09/12/16 0400 Results 24 hrs Laboratory Tests Test 09/11/16 13:28 09/11/16 18:02 09/11/16 20:44 09/12/16 00:57 Bedside Glucose 101 106 132 161 Test 09/12/16 04:00 09/12/16 05:40 09/12/16 08:49 White Blood Count 17.4 H Red Blood Count 2.90 L Hemoglobin 8.6 L Hematocrit 25.1 L Mean Corpuscular Volume 86.6 Mean Corpuscular Hemoglobin 29.7 Mean Corpuscular Hemoglobin Concent 34.3 Red Cell Distribution Width 19.0 H Platelet Count 77 L Mean Platelet Volume 13.9 H Neutrophils % 94.1 H Lymphocytes % 2.0 L Monocytes % 2.0 Eosinophils % 0.0 Basophils % 0.2 Nucleated Red Blood Cells % 1.2 H Neutrophils # 16.4 H Lymphocytes # 0.3 L Monocytes # 0.3 Eosinophils # 0.0 Basophils # 0.0 Nucleated Red Blood Cells # 0.2 H Sodium Level 129 L Potassium Level 3.2 L Chloride Level 98 Carbon Dioxide Level 22 Anion Gap 12 Blood Urea Nitrogen 25 H Creatinine 1.01 H Glucose Level 156 Calcium Level 6.2 L Bedside Glucose 176 183 Medications Medications Current Medications Acetaminophen (Tylenol Tab) 650 mg Q6H PRN PO PAIN LEVEL 1-3 OR FEVER; Start at 18:30 Acetaminophen/ Hydrocodone Bitart ([place] (5/325)) 1 tab Q6H PRN PO MODERATE PAIN LEVEL 4-6; Start 09/05/16 at 18:30 Morphine Sulfate (morphine) 2 mg Q4H PRN IV SEVERE PAIN LEVEL 7-10; Start 09/05 at 18:30 Docusate Sodium (Colace) 100 mg Q12H PRN PO CONSTIPATION; Start 09/05/16 at 18: 30 Magnesium Hydroxide (Milk Of Mag) 30 ml DAILY PRN PO CONSTIPATION; Start at 18:30 Sodium Biphosphate/ Sodium Phosphate (Fleet Enema) 133 ml DAILY PRN [place] CONSTIPATION; Start 09/05/16 at 18:30 Lorazepam 0.5 mg 0.5 mg Q6H PRN IV ANXIETY; Start 09/05/16 at 18:30 Piperacillin Sod/ Tazobactam Sod (Zosyn 2.25gm/ 50ml (Pmx)) 50 ml @ 100 mls/hr Q6 IVPB Last administered on 09/12/16 05:46; Admin Dose 100 MLS/HR; Start 09/06 at 00:00 Vancomycin HCl (Vanco Iv Per Pharmacy) VANCOMYCIN PER PHARMACY NOTE XX ; Start 09/05/16 at 18:30 Hydralazine HCl (Apresoline) 10 mg Q6H PRN IV ELEVATED BLOOD PRESSURE; Start at 18:30 Nitroglycerin (Nitroglycerin (Sl Tab) 0.4 Mg) 1 tab Q5M PRN SL ANGINA; Start at 18:30 Insulin Aspart (Novolog Insulin Pen) NOVOLOG *MILD* ALGORI... Q4 SC Last administered on 09/12/16 08:51; Admin Dose 2 UNIT; Start 09/05/16 at 21:00 Miscellaneous Information 1 ea NOTE XX ; Start 09/05/16 at 19:00 Glucose (Glutose) 15 gm Q15M PRN PO DECREASED GLUCOSE; Start 09/05/16 at 19:00 Glucose (Glutose) 22.5 gm Q15M PRN PO DECREASED GLUCOSE; Start 09/05/16 at 19: 00 Dextrose (D50w Syringe) 25 ml Q15M PRN IV DECREASED GLUCOSE; Start 09/05/16 at 19:00 Dextrose (D50w Syringe) 50 ml Q15M PRN IV DECREASED GLUCOSE; Start 09/05/16 at 19:00 Glucagon (Glucagen) 1 mg Q15M PRN IM DECREASED GLUCOSE; Start 09/05/16 at 19:00 Glucose 15 gm 15 gm Q15M PRN BUCCAL DECREASED GLUCOSE; Start 09/05/16 at 19:00 Ondansetron HCl/ Sodium Chloride (Zofran Inj/NS) 54 ml @ 216 mls/hr Q6H PRN IV NAUSEA AND/OR VOMITING Last administered on 09/07/16 17:27; Admin Dose 216 MLS/HR; Start 09/06/16 at 10:30 Pantoprazole (Protonix Iv) 40 mg BID@06,18 IV Last administered on 09/12/16 05: 46; Admin Dose 40 MG; Start 09/08/16 at 18:00 Hydrocortisone 100 mg 100 mg Q8 IV Last administered on 09/12/16 05:42; Admin Dose 100 MG; Start 09/08/16 at 14:00 Metronidazole 100 ml @ 100 mls/hr Q8 IVPB Last administered on 09/12/16 05:47 ; Admin Dose 100 MLS/HR; Start 09/08/16 at 14:00 Fentanyl 100 ml @ 5 mls/hr TITRATE IV Last administered on 09/12/16 05:41; Admin Dose 5 MLS/HR; Start 09/08/16 at 15:30 Fluconazole/ Sodium Chloride (Diflucan 100 Mg/ NS (Pmx)) 50 ml @ 50 mls/hr Q24H IVPB Last administered on 09/11/16 14:30; Admin Dose 50 MLS/HR; Start 09/09/16 at 14:30 Digoxin 125 mcg 125 mcg DAILY@13 IV Last administered on 09/11/16 13:29; Admin Dose 125 MCG; Start 09/10/16 at 13:00 Phenylephrine HCl/ Sodium Chloride (Julio-Syneph/NS) 500 ml @ 18.75 mls/ hr TITRATE IV ; Start 09/10/16 at 10:00 Miscellaneous Information PLEASE CHANGE ALL IVPB F... DAILY XX Last administered on 09/11/16 08:05; Admin Dose 1 EA; Start 09/10/16 at 08:30 Vasopressin 60 unit/Sodium Chloride 103 ml @ 0 mls/hr Q12H IVPB ; Start at 09:00; Status Future Hold Total Parenteral Nutrition 1,000 ml @ 40 mls/hr Q24H IV Last administered on 18:00; Admin Dose 40 MLS/HR; Start 09/11/16 at 16:00 Fat Emulsion Intravenous 500 ml @ 20.833 mls/ hr Q24H IV Last administered on 09/11/16 17:59; Admin Dose 20.833 MLS/HR; Start 09/11/16 at 16:00 Vancomycin HCl 100 ml @ 100 mls/hr Q24H IVPB Last administered on 09/11/16 20: 43; Admin Dose 100 MLS/HR; Start 09/11/16 at 20:00 Norepinephrine 16 mg/Sodium Chloride 500 ml @ 0 mls/hr TITRATE IV Last administered on 09/12/16t 00:00; Admin Dose 15 MLS/HR; Start 09/11/16 at 20:31 Sodium Chloride (NS) 1,000 ml @ 50 mls/hr Q20H IV ; Start 09/12/16 at 09:00 SKYLER ESTEVES Sep 12, 2016 09:58
[2016-09-12] MEDS: DIGOXIN 500 MCG INJ IV SCH (12:09)
--- NOTE | 2016-09-12 12:48 | CONS ---
Date/Time of Note Date/Time of Note DATE: 09/12/16 TIME: 12:44 Assessment/Plan Assessment/Plan Additional Assessment/Plan Post colonoscopy perforated viscus * Large pelvic mass invading colon wall site of perforation * Contrast leakage to pelvic area * ?Contained perforation as no evidence of generalized peritonitis Sepsis Metastatic cervical CA/Adrenal History of cervical cancer S/P nephrostomy tube bilateral EF 20% Plan Continue present supportive management Palliative following No GI interventions planned Further recommendations depend on clinical course Pt seen in collaboration with Dr. Durant Consultation Date/Type/Reason Admit Date/Time September 05, 2016 at 16:23 Initial Consult Date 09/06/16 Type of Consultation: GI Referring Provider: ONEIDA COLEMAN 24 HR Interval Summary Free Text/Dictation Poor prognosis No GI interventions planned Exam/Review of Systems Vital Signs Vitals Vital Signs Date Time Temp Pulse Resp B/P Pulse Ox O2 Delivery O2 Flow Rate FiO2 09/12/16 12:00 103 09/12/16 11:45 21 100 30 09/12/16 10:45 95/58 09/12/16 10:00 Mechanical Ventilator 09/12/16 08:00 97.9 09/08/16 13:00 10.0 Intake and Output 09/11/16 09/11/16 09/12/16 15:00 23:00 07:00 Intake Total 949.74 ml 813.082 ml 723.274 ml Output Total 140 ml 105 ml 195 ml Balance 809.74 ml 708.082 ml 528.274 ml Exam Constitutional: frail Head: normocephalic ENMT: intubated Neck: non-tender, supple Respiratory: clear to auscultation, diminished breath sounds, normal air movement Cardiovascular: nl pulses, regular rate and rhythm Gastrointestinal: soft, No rebound or guarding Musculoskeletal: swelling Results Result Diagram: 09/12/16 0400 09/12/16 0400 Results 24 hrs Laboratory Tests Test 09/11/16 13:28 09/11/16 18:02 09/11/16 20:44 09/12/16 00:57 Bedside Glucose 101 106 132 161 Test 09/12/16 04:00 09/12/16 05:40 09/12/16 08:49 09/12/16 12:06 White Blood Count 17.4 H Red Blood Count 2.90 L Hemoglobin 8.6 L Hematocrit 25.1 L Mean Corpuscular Volume 86.6 Mean Corpuscular Hemoglobin 29.7 Mean Corpuscular Hemoglobin Concent 34.3 Red Cell Distribution Width 19.0 H Platelet Count 77 L Mean Platelet Volume 13.9 H Neutrophils % 94.1 H Lymphocytes % 2.0 L Monocytes % 2.0 Eosinophils % 0.0 Basophils % 0.2 Nucleated Red Blood Cells % 1.2 H Neutrophils # 16.4 H Lymphocytes # 0.3 L Monocytes # 0.3 Eosinophils # 0.0 Basophils # 0.0 Nucleated Red Blood Cells # 0.2 H Sodium Level 129 L Potassium Level 3.2 L Chloride Level 98 Carbon Dioxide Level 22 Anion Gap 12 Blood Urea Nitrogen 25 H Creatinine 1.01 H Glucose Level 156 Calcium Level 6.2 L Bedside Glucose 176 183 174 Medications Medications Current Medications Acetaminophen (Tylenol Tab) 650 mg Q6H PRN PO PAIN LEVEL 1-3 OR FEVER; Start at 18:30 Acetaminophen/ Hydrocodone Bitart ([place] (5/325)) 1 tab Q6H PRN PO MODERATE PAIN LEVEL 4-6; Start 09/05/16 at 18:30 Morphine Sulfate (morphine) 2 mg Q4H PRN IV SEVERE PAIN LEVEL 7-10; Start 09/05 at 18:30 Docusate Sodium (Colace) 100 mg Q12H PRN PO CONSTIPATION; Start 09/05/16 at 18: 30 Magnesium Hydroxide (Milk Of Mag) 30 ml DAILY PRN PO CONSTIPATION; Start at 18:30 Sodium Biphosphate/ Sodium Phosphate (Fleet Enema) 133 ml DAILY PRN [place] CONSTIPATION; Start 09/05/16 at 18:30 Lorazepam 0.5 mg 0.5 mg Q6H PRN IV ANXIETY; Start 09/05/16 at 18:30 Piperacillin Sod/ Tazobactam Sod (Zosyn 2.25gm/ 50ml (Pmx)) 50 ml @ 100 mls/hr Q6 IVPB Last administered on 09/12/16t 11:28; Admin Dose 100 MLS/HR; Start 09/06 at 00:00 Vancomycin HCl (Vanco Iv Per Pharmacy) VANCOMYCIN PER PHARMACY NOTE XX ; Start 09/05/16 at 18:30 Hydralazine HCl (Apresoline) 10 mg Q6H PRN IV ELEVATED BLOOD PRESSURE; Start at 18:30 Nitroglycerin (Nitroglycerin (Sl Tab) 0.4 Mg) 1 tab Q5M PRN SL ANGINA; Start at 18:30 Insulin Aspart (Novolog Insulin Pen) NOVOLOG *MILD* ALGORI... Q4 SC Last administered on 09/12/16 12:11; Admin Dose 1 UNIT; Start 09/05/16 at 21:00 Miscellaneous Information 1 ea NOTE XX ; Start 09/05/16 at 19:00 Glucose (Glutose) 15 gm Q15M PRN PO DECREASED GLUCOSE; Start 09/05/16 at 19:00 Glucose (Glutose) 22.5 gm Q15M PRN PO DECREASED GLUCOSE; Start 09/05/16 at 19: 00 Dextrose (D50w Syringe) 25 ml Q15M PRN IV DECREASED GLUCOSE; Start 09/05/16 at 19:00 Dextrose (D50w Syringe) 50 ml Q15M PRN IV DECREASED GLUCOSE; Start 09/05/16 at 19:00 Glucagon (Glucagen) 1 mg Q15M PRN IM DECREASED GLUCOSE; Start 09/05/16 at 19:00 Glucose 15 gm 15 gm Q15M PRN BUCCAL DECREASED GLUCOSE; Start 09/05/16 at 19:00 Ondansetron HCl/ Sodium Chloride (Zofran Inj/NS) 54 ml @ 216 mls/hr Q6H PRN IV NAUSEA AND/OR VOMITING Last administered on 09/07/16 17:27; Admin Dose 216 MLS/HR; Start 09/06/16 at 10:30 Pantoprazole (Protonix Iv) 40 mg BID@06,18 IV Last administered on 09/12/16 05: 46; Admin Dose 40 MG; Start 09/08/16 at 18:00 Hydrocortisone 100 mg 100 mg Q8 IV Last administered on 09/12/16 05:42; Admin Dose 100 MG; Start 09/08/16 at 14:00 Metronidazole 100 ml @ 100 mls/hr Q8 IVPB Last administered on 09/12/16 05:47 ; Admin Dose 100 MLS/HR; Start 09/08/16 at 14:00 Fentanyl 100 ml @ 5 mls/hr TITRATE IV Last administered on 09/12/16 05:41; Admin Dose 5 MLS/HR; Start 09/08/16 at 15:30 Fluconazole/ Sodium Chloride (Diflucan 100 Mg/ NS (Pmx)) 50 ml @ 50 mls/hr Q24H IVPB Last administered on 09/11/16 14:30; Admin Dose 50 MLS/HR; Start 09/09/16 at 14:30 Digoxin 125 mcg 125 mcg DAILY@13 IV Last administered on 09/12/16 12:09; Admin Dose 125 MCG; Start 09/10/16 at 13:00 Phenylephrine HCl/ Sodium Chloride (Juilo-Syneph/NS) 500 ml @ 18.75 mls/ hr TITRATE IV ; Start 09/10/16 at 10:00 Miscellaneous Information PLEASE CHANGE ALL IVPB F... DAILY XX Last administered on 09/11/16 08:05; Admin Dose 1 EA; Start 09/10/16 at 08:30 Vasopressin 60 unit/Sodium Chloride 103 ml @ 0 mls/hr Q12H IVPB ; Start at 09:00; Status Future Hold Total Parenteral Nutrition 1,000 ml @ 40 mls/hr Q24H IV Last administered on 18:00; Admin Dose 40 MLS/HR; Start 09/11/16 at 16:00 Fat Emulsion Intravenous 500 ml @ 20.833 mls/ hr Q24H IV Last administered on 09/11/16 17:59; Admin Dose 20.833 MLS/HR; Start 09/11/16 at 16:00 Vancomycin HCl 100 ml @ 100 mls/hr Q24H IVPB Last administered on 09/11/16 20: 43; Admin Dose 100 MLS/HR; Start 09/11/16 at 20:00 Norepinephrine 16 mg/Sodium Chloride 500 ml @ 0 mls/hr TITRATE IV Last administered on 09/12/16 00:00; Admin Dose 15 MLS/HR; Start 09/11/16 at 20:31 Sodium Chloride (NS) 1,000 ml @ 50 mls/hr Q20H IV Last administered on 09:00; Admin Dose 50 MLS/HR; Start 09/12/16 at 09:00 BAILEY PAUL Sep 12, 2016 12:48
--- NOTE | 2016-09-12 13:24 | PN ---
DATE: 09/12/2016 INFECTIOUS DISEASE PROGRESS NOTE SUBJECTIVE: No events overnight. Patient is still on Levophed, but at 2 mcg. She is in no distress. No fevers. Pulse 99, respirations 16, blood pressure 95 /58, saturations 100 on 30%. INDWELLINGS: Endotracheal tube, NG tube, PICC line, placed yesterday on 2016. B nephrostomies, and right chest Port-A-Cath. ANTIMICROBIALS: The patient is on: 1. IV vancomycin. 2. Fluconazole. 4. Flagyl. 5. Zosyn. 6. She is also on Solu-Cortef. PHYSICAL EXAMINATION: GENERAL: Chronically ill-appearing, elderly woman, in no distress. HEENT: Head atraumatic, normocephalic. Sclerae anicteric. Buccal mucosa dry. NECK: Supple, trachea midline. CHEST: Chest rise is symmetrical. Breath sounds diminished to the bases. HEART: S1, S2. ABDOMEN: Soft, bowel tones present. Abdomen distended. Bowel tones hypoactive. EXTREMITIES: With bilateral edema. ASSESSMENT: 1. Sepsis with shock and multisystem organ failure. 2. Large pelvic masses, proximal sigmoid colon obstruction and perforation, as per CT of the abdomen 3. Metastatic cervical cancer. 3. Left adrenal mass, possible metastasis. 4. Urinary tract infection, per urinalysis. 5. Acute renal and respiratory failure. PLAN: The patient remains hemodynamically unstable, although pressors had been weaned down. She is also on steroids, that possibly accounts for her leukocytosis. She is covered with broad-spectrum antibiotics and not a surgical candidate. Prognosis is guarded. Dictated By: BIN MITTAL DAY PORTER for RIDDHI PINK/EHSAN Conf#: [id number] DID#: [id number] MTDShanna
[2016-09-12 13:31] LABS: MICROALBUMIN 2.6 mg/dL
[2016-09-12] MEDS: FLUCONAZOLE 100 MG/NS (PMX) 50 ML IVPB SCH (14:17)
--- NOTE | 2016-09-12 14:17 | CONS ---
Date/Time of Note Date/Time of Note DATE: 09/12/16 TIME: 14:14 Assessment/Plan Assessment/Plan Chief Complaint/Hosp Course 61 yo with metastatic cervical cancer s/p chemotherapy , immunotherapy and radiation. Pt has not had chemotherapy or immunotherapy in over a year. 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 It seems that the [facility] oncologist does believe this patient is a candidate for more therapy at this time. Pt underwent a colonoscopy and suffered from a perforated sigmoid colon . She is currently in septic shock and is now requiring less pressor support #Metastatic Cervical Cancer -at this time, patient has an extremely poor functional status and is in a critical state in the ICU. there is no oncologic treatment that can be given at this time while she is critically ill. -family still wants patient to be full code -continue critical care supportive care. Pt now on decreased amount of Levophed. #Perforated Sigmoid colon -pt currently not a surgical candidate currently given her current critical condition functional status -surgery is following #Brain Mets -per the son, pt was told that she was not a candidate for post op brain radiation. #Sepsis - lactate> 5. this is likely secondary to the urosepsis as well as sigmoid bowel perforation -continue broad spectrum antibiotics -cont pressor support # Anemia - secondary to metastatic disease and possible GI blood loss. Hg is currently stable -continue to monitor Hg. If it drops below 8 will consider transfusion Problems: Consultation Date/Type/Reason Admit Date/Time September 05, 2016 at 16:23 Initial Consult Date 09/06/16 Type of Consultation: Hematology Referring Provider: ONEIDA COLEMAN 24 HR Interval Summary Free Text/Dictation Levophed decreased, otherwise no significant changes. Hemoglobin fairly stable. Exam/Review of Systems Vital Signs Vitals Vital Signs Date Time Temp Pulse Resp B/P Pulse Ox O2 Delivery O2 Flow Rate FiO2 09/12/16 13:33 93 20 100 30 09/12/16 10:45 95/58 09/12/16 10:00 Mechanical Ventilator 09/12/16 08:00 97.9 09/08/16 13:00 10.0 Intake and Output 09/11/16 09/11/16 09/12/16 15:00 23:00 07:00 Intake Total 949.74 ml 813.082 ml 723.274 ml Output Total 140 ml 105 ml 195 ml Balance 809.74 ml 708.082 ml 528.274 ml Exam Constitutional: alert Head: normocephalic ENMT: intubated Neck: non-tender, supple Respiratory: clear to auscultation Cardiovascular: regular rate and rhythm Gastrointestinal: soft Musculoskeletal: nl extremities to inspection Results Result Diagram: 09/12/16 0400 09/12/16 0400 Results 24 hrs Laboratory Tests Test 09/11/16 18:02 09/11/16 20:44 09/12/16 00:57 09/12/16 04:00 Bedside Glucose 106 132 161 White Blood Count 17.4 H Red Blood Count 2.90 L Hemoglobin 8.6 L Hematocrit 25.1 L Mean Corpuscular Volume 86.6 Mean Corpuscular Hemoglobin 29.7 Mean Corpuscular Hemoglobin Concent 34.3 Red Cell Distribution Width 19.0 H Platelet Count 77 L Mean Platelet Volume 13.9 H Neutrophils % 94.1 H Lymphocytes % 2.0 L Monocytes % 2.0 Eosinophils % 0.0 Basophils % 0.2 Nucleated Red Blood Cells % 1.2 H Neutrophils # 16.4 H Lymphocytes # 0.3 L Monocytes # 0.3 Eosinophils # 0.0 Basophils # 0.0 Nucleated Red Blood Cells # 0.2 H Sodium Level 129 L Potassium Level 3.2 L Chloride Level 98 Carbon Dioxide Level 22 Anion Gap 12 Blood Urea Nitrogen 25 H Creatinine 1.01 H Glucose Level 156 Calcium Level 6.2 L Test 09/12/16 05:40 09/12/16 08:49 09/12/16 12:06 Bedside Glucose 176 183 174 Medications Medications Current Medications Acetaminophen (Tylenol Tab) 650 mg Q6H PRN PO PAIN LEVEL 1-3 OR FEVER; Start at 18:30 Acetaminophen/ Hydrocodone Bitart ([place] (5/325)) 1 tab Q6H PRN PO MODERATE PAIN LEVEL 4-6; Start 09/05/16 at 18:30 Morphine Sulfate (morphine) 2 mg Q4H PRN IV SEVERE PAIN LEVEL 7-10; Start 09/05 at 18:30 Docusate Sodium (Colace) 100 mg Q12H PRN PO CONSTIPATION; Start 09/05/16 at 18: 30 Magnesium Hydroxide (Milk Of Mag) 30 ml DAILY PRN PO CONSTIPATION; Start at 18:30 Sodium Biphosphate/ Sodium Phosphate (Fleet Enema) 133 ml DAILY PRN [place] CONSTIPATION; Start 09/05/16 at 18:30 Lorazepam 0.5 mg 0.5 mg Q6H PRN IV ANXIETY; Start 09/05/16 at 18:30 Piperacillin Sod/ Tazobactam Sod (Zosyn 2.25gm/ 50ml (Pmx)) 50 ml @ 100 mls/hr Q6 IVPB Last administered on 09/12/16 11:28; Admin Dose 100 MLS/HR; Start 09/06 at 00:00 Vancomycin HCl (Vanco Iv Per Pharmacy) VANCOMYCIN PER PHARMACY NOTE XX ; Start 09/05/16 at 18:30 Hydralazine HCl (Apresoline) 10 mg Q6H PRN IV ELEVATED BLOOD PRESSURE; Start at 18:30 Nitroglycerin (Nitroglycerin (Sl Tab) 0.4 Mg) 1 tab Q5M PRN SL ANGINA; Start at 18:30 Insulin Aspart (Novolog Insulin Pen) NOVOLOG *MILD* ALGORI... Q4 SC Last administered on 09/12/16 12:11; Admin Dose 1 UNIT; Start 09/05/16 at 21:00 Miscellaneous Information 1 ea NOTE XX ; Start 09/05/16 at 19:00 Glucose (Glutose) 15 gm Q15M PRN PO DECREASED GLUCOSE; Start 09/05/16 at 19:00 Glucose (Glutose) 22.5 gm Q15M PRN PO DECREASED GLUCOSE; Start 09/05/16 at 19: 00 Dextrose (D50w Syringe) 25 ml Q15M PRN IV DECREASED GLUCOSE; Start 09/05/16 at 19:00 Dextrose (D50w Syringe) 50 ml Q15M PRN IV DECREASED GLUCOSE; Start 09/05/16 at 19:00 Glucagon (Glucagen) 1 mg Q15M PRN IM DECREASED GLUCOSE; Start 09/05/16 at 19:00 Glucose 15 gm 15 gm Q15M PRN BUCCAL DECREASED GLUCOSE; Start 09/05/16 at 19:00 Ondansetron HCl/ Sodium Chloride (Zofran Inj/NS) 54 ml @ 216 mls/hr Q6H PRN IV NAUSEA AND/OR VOMITING Last administered on 09/07/16 17:27; Admin Dose 216 MLS/HR; Start 09/06/16 at 10:30 Pantoprazole (Protonix Iv) 40 mg BID@06,18 IV Last administered on 09/12/16 05: 46; Admin Dose 40 MG; Start 09/08/16 at 18:00 Hydrocortisone 100 mg 100 mg Q8 IV Last administered on 09/12/16 05:42; Admin Dose 100 MG; Start 09/08/16 at 14:00 Metronidazole 100 ml @ 100 mls/hr Q8 IVPB Last administered on 09/12/16 05:47 ; Admin Dose 100 MLS/HR; Start 09/08/16 at 14:00 Fentanyl 100 ml @ 5 mls/hr TITRATE IV Last administered on 09/12/16 05:41; Admin Dose 5 MLS/HR; Start 09/08/16 at 15:30 Fluconazole/ Sodium Chloride (Diflucan 100 Mg/ NS (Pmx)) 50 ml @ 50 mls/hr Q24H IVPB Last administered on 09/11/16 14:30; Admin Dose 50 MLS/HR; Start 09/09/16 at 14:30 Digoxin 125 mcg 125 mcg DAILY@13 IV Last administered on 09/12/16 12:09; Admin Dose 125 MCG; Start 09/10/16 at 13:00 Phenylephrine HCl/ Sodium Chloride (Julio-Syneph/NS) 500 ml @ 18.75 mls/ hr TITRATE IV ; Start 09/10/16 at 10:00 Miscellaneous Information PLEASE CHANGE ALL IVPB F... DAILY XX Last administered on 09/11/16 08:05; Admin Dose 1 EA; Start 09/10/16 at 08:30 Vasopressin 60 unit/Sodium Chloride 103 ml @ 0 mls/hr Q12H IVPB ; Start at 09:00; Status Future Hold Total Parenteral Nutrition 1,000 ml @ 40 mls/hr Q24H IV Last administered on 18:00; Admin Dose 40 MLS/HR; Start 09/11/16 at 16:00 Fat Emulsion Intravenous 500 ml @ 20.833 mls/ hr Q24H IV Last administered on 09/11/16 17:59; Admin Dose 20.833 MLS/HR; Start 09/11/16 at 16:00 Vancomycin HCl 100 ml @ 100 mls/hr Q24H IVPB Last administered on 09/11/16 20: 43; Admin Dose 100 MLS/HR; Start 09/11/16 at 20:00 Norepinephrine 16 mg/Sodium Chloride 500 ml @ 0 mls/hr TITRATE IV Last administered on 09/12/16 00:00; Admin Dose 15 MLS/HR; Start 09/11/16 at 20:31 Sodium Chloride (NS) 1,000 ml @ 50 mls/hr Q20H IV Last administered on 09:00; Admin Dose 50 MLS/HR; Start 09/12/16 at 09:00 TOFAMILIA MD Sep 12, 2016 14:17
--- NOTE | 2016-09-12 14:34 | PN ---
Date/Time of Note Date/Time of Note DATE: 09/11/16 TIME: 14:32 Assessment/Plan Lines/Catheters IV Catheter Type (from [facility]): PICC Line Fleming in Place (from [facility]): No Assessment/Plan Chief Complaint/Hosp Course 1. Septic shock, multifactorial due to presenting infection plus sigmoid perforation after colonoscopy. Patient has very poor prognosis. She is not a surgical candidate based on her presentation. Family had mentioned no surgical intervention either at this point. -abx -judicious fluid management -supportive measures 2. Metastatic cervical cancer, off treatment from [facility] since they deem it to be too dangerous for her as above. -onc following 3. Anemia, probably multifactorial with GI losses. Continue to monitor. 4. Significant hypoalbuminemia is multifactorial; however, she is not able to tolerate feeds at this time. 5. Probable hydronephrosis with obstruction. Currently with bilateral nephrostomy tubes. Continue tubes to drainage and monitor closely. 6. Electrolyte abnormalities. Please correct with judicious fluid management and replacement as needed. 7. Decubitus ulceration. Continue offloading, local care and eventually, if patient survives through this, nutritional optimization and vitamin replenishment. Thank you Late entry 09/11 Problems: Subjective 24 Hr Interval Summary Requiring pressor support. No f/c. No cough. No sz. No rash. No vomiting. Bloated. No bleeding. Leukocytosis. Lactic acidosis. CT with perforation and malignancy. Exam/Review of Systems Vital Signs Vitals Vital Signs Date Time Temp Pulse Resp B/P Pulse Ox O2 Delivery O2 Flow Rate FiO2 09/12/16 14:15 101 14 116/68 100 09/12/16 14:00 Mechanical Ventilator 09/12/16 13:33 30 09/12/16 12:00 97.8 09/08/16 13:00 10.0 Intake and Output 09/11/16 09/11/16 09/12/16 15:00 23:00 07:00 Intake Total 949.74 ml 813.082 ml 723.274 ml Output Total 140 ml 105 ml 195 ml Balance 809.74 ml 708.082 ml 528.274 ml Exam Free Text/Dictation GENERAL: Intubated, obese HEENT: Pupils are sluggish. No scleral icterus. Mucous membranes are moist. NECK: JVD. No crepitus. Trachea midline. PULMONARY: Minimally coarse. CARDIAC: S1, S2 and tachycardic. ABDOMEN: Distended and taut. EXTREMITIES: Minimal edema. VASCULAR: Capillary refill is over 3 seconds. NEUROLOGIC: Not able to follow commands. LYMPHATICS: No inguinal lymphadenopathy. Results Result Diagram: 09/12/1639909/12/160 DANIEL ALEXANDRE MD Sep 12, 2016 14:34
--- NOTE | 2016-09-12 14:35 | PN ---
Date/Time of Note Date/Time of Note DATE: 09/12/16 TIME: 14:34 Assessment/Plan Lines/Catheters IV Catheter Type (from [facility]): PICC Line Fleming in Place (from [facility]): No Assessment/Plan Chief Complaint/Hosp Course 1. Septic shock, multifactorial due to presenting infection plus sigmoid perforation after colonoscopy. Patient has very poor prognosis. She is not a surgical candidate based on her presentation. Family had mentioned no surgical intervention either at this point. -abx -judicious fluid management -supportive measures 2. Metastatic cervical cancer, off treatment from [facility] since they deem it to be too dangerous for her as above. -onc following 3. Anemia, probably multifactorial with GI losses. Continue to monitor. 4. Significant hypoalbuminemia is multifactorial; however, she is not able to tolerate feeds at this time. 5. Probable hydronephrosis with obstruction. Currently with bilateral nephrostomy tubes. Continue tubes to drainage and monitor closely. 6. Electrolyte abnormalities. Please correct with judicious fluid management and replacement as needed. 7. Decubitus ulceration. Continue offloading, local care and eventually, if patient survives through this, nutritional optimization and vitamin replenishment. Thank you Problems: Subjective 24 Hr Interval Summary Requiring pressor support. No f/c. No cough. No sz. No rash. No vomiting. Bloated. No bleeding. Leukocytosis. Lactic acidosis. CT with perforation and malignancy. Exam/Review of Systems Vital Signs Vitals Vital Signs Date Time Temp Pulse Resp B/P Pulse Ox O2 Delivery O2 Flow Rate FiO2 09/12/16 14:15 101 14 116/68 100 09/12/16 14:00 Mechanical Ventilator 09/12/16 13:33 30 09/12/16 12:00 97.8 09/08/16 13:00 10.0 Intake and Output 09/11/16 09/11/16 09/12/16 15:00 23:00 07:00 Intake Total 949.74 ml 813.082 ml 723.274 ml Output Total 140 ml 105 ml 195 ml Balance 809.74 ml 708.082 ml 528.274 ml Exam Free Text/Dictation GENERAL: Intubated, obese HEENT: Pupils are sluggish. No scleral icterus. Mucous membranes are moist. NECK: JVD. No crepitus. Trachea midline. PULMONARY: Minimally coarse. CARDIAC: S1, S2 and tachycardic. ABDOMEN: Distended and taut. EXTREMITIES: Minimal edema. VASCULAR: Capillary refill is over 3 seconds. NEUROLOGIC: Not able to follow commands. LYMPHATICS: No inguinal lymphadenopathy. Results Result Diagram: 09/12/160 09/12/160 DANIEL ALEXANDRE MD Sep 12, 2016 14:35
[2016-09-12] MEDS: FAT EMULSION 20% 500 ML IV SCH (15:40)
[2016-09-12] MEDS: TPN 1,000 ML IV SCH (15:40)
--- NOTE | 2016-09-12 16:09 | PN ---
DATE: 09/12/2016 CARDIOLOGY FOLLOWUP SUBJECTIVE: Discussed with the staff. Rhythm strip is reviewed. Patient has remained in sinus tac hycardia. Blood pressure still low and ____able to wean off of Levophed. Intubated on the vent. MEDICATIONS: Reviewed as per medication reconciliation, personally reviewed. PHYSICAL EXAMINATION: VITAL SIGNS: Temperature 97.8, heart rate of 100, blood pressure 116/68, respiration rate of 40, sa turating 100%. HEENT: Normocephalic, atraumatic. Status post intubation on the vent. CARDIOVASCULAR: Regular rate and rhythm. PULMONARY: Anteriorly mild rhonchi with no wheezes. GASTROINTESTINAL: Distended, but does not appear to be hard anymore. Nontender to palpation. EXTREMITIES: Diffuse lower extremity edema 4+. NEUROLOGIC: Opens her eyes and responds appropriately. PSYCHIATRIC: Appears to be calm. LABORATORY: ____17.4. Hemoglobin 8.6, platelets of 77. Sodium 129, potassium 3.2, BUN of 25, crea tinine ____, glucose 156. Chest x-ray, most recent one shows improved aeration, resolution of vascular congestion previously seen. ASSESSMENT AND PLAN: 1. 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 2. Septic shock and severe sepsis. 3. Perforated bowel. 4. Metastatic cervical cancer. 5. Anemia. 6. Electrolyte abnormalities and hypokalemia. RECOMMENDATIONS: We will continue with supportive care. Respiratory care will be continued and man aged as per pulmonary, weaning as tolerated. ____ Her b.i.d. digoxin will be continued for now. Nu tritional support will be continued. The patient is not a good surgical candidate, per surgical priscilla solares's notes. Continue with the ICU care. Dictated By: JIM HARRIS/EHSAN Conf#: [id number] DID#: [id number]
[2016-09-12] MEDS: VANCOMYCIN 500MG/NS (PMX) 100 ML IVPB SCH (20:21)
[2016-09-13] VITALS (58 sets, daily range): BP systolic 84–137; BP diastolic 58–85; PULSE 87–132; RESP 10–35
[2016-09-13] MEDS: PIPER-TAZO 2.25 GM (PMX) 50 ML IVPB SCH ×4 (00:41→17:55)
[2016-09-13] MEDS: INSULIN ASPART [NOVOLOG] 3 ML PEN SC SCH ×6 (00:44→20:53)
[2016-09-13] MEDS: metroNIDAZOLE 500 MG/NS (PMX) 100 ML IVPB SCH ×3 (05:13→21:41)
[2016-09-13] MEDS: PANTOPRAZOLE 40 MG INJ IV SCH ×2 (05:13→17:55)
[2016-09-13] MEDS: HYDROCORTISONE 100 MG INJ IV SCH ×4 (05:13→21:40)
[2016-09-13 06:02] LABS: ADD SCAN DIFF NO
[2016-09-13 06:08] LABS: ABNORMAL IP MESSAGE 1; BASOPHILS % 0.1 % (0.0-2.0); HEMATOCRIT 21.6 % (37.0-47.0); HEMOGLOBIN 7.7 g/dl (12.0-16.0); LYMPHOCYTES # 0.4 10^3/ul (0.8-2.9); LYMPHOCYTES % 2.1 % (15.0-51.0); MEAN CORPUSCULAR HEMOGLOBIN 31.8 pg (29.0-33.0); MEAN CORPUSCULAR HGB CONC 35.6 g/dl (32.0-37.0); MEAN CORPUSCULAR VOLUME 89.3 fl (82.0-101.0); MEAN PLATELET VOLUME 13.7 fl (7.4-10.4); MONOCYTE # 0.5 10^3/ul (0.3-0.9); MONOCYTES % 2.7 % (0.0-11.0); NEUTROPHIL # 15.5 10^3/ul (1.6-7.5); NUCLEATED RED BLOOD CELLS # 0.4 10^3/ul (0.0-0.0); NUCLEATED RED BLOOD CELLS% 2.4 /100WBC (0.0-0.0); RED BLOOD COUNT 2.42 10^6/ul (4.20-5.40); RED CELL DISTRIBUTION WIDTH 18.8 % (11.5-14.5); WHITE BLOOD COUNT 16.8 10^3/ul (4.8-10.8)
[2016-09-13 06:38] LABS: CALCIUM 7.4 mg/dl (8.4-10.2); CREATININE 0.95 mg/dl (0.44-1.00); POTASSIUM 3.6 mmol/L (3.5-5.1)
[2016-09-13 06:40] LABS: MAGNESIUM 2.2 mg/dl (1.7-2.5); PHOSPHORUS 3.3 mg/dl (2.5-4.9)
[2016-09-13 06:42] LABS: PLATELET COUNT 59 10^3/UL (140-415)
[2016-09-13] MEDS: FENTAnyl (DRIP) 1000 mcg/100mL 100 ML IV SCH ×4 (07:28→17:46)
[2016-09-13] MEDS: SOD CHLORIDE 0.9% 1,000 ML IV SCH ×2 (08:01→23:13)
--- NOTE | 2016-09-13 09:02 | CONS ---
Date/Time of Note Date/Time of Note DATE: 09/13/16 TIME: 09:01 Consult Date/Type/Reason Admit Date/Time September 05, 2016 at 16:23 Initial Consult Date 09/06/16 Type of Consultation: neph Ordering Provider: ONEIDA COLEMAN The patient remains critically ill, on pressor support. No hemoptysis, hematemesis or hematochezia. The patient was initiated on TPN. Urinary output from bilateral nephrostomy tubes have been marginal. No other acute events noted. No hemoptysis, hematemesis or hematochezia. OBJECTIVE: I's AND O'S: The patient had 2.6 liters in, with urinary output of only 290. HEENT: Head is normocephalic. NECK: Supple. HEART: Regular rate. LUNGS: Showed diminished breath sounds at the base. ABDOMEN: Soft, nontender to palpation. No rebound or guarding. EXTREMITIES: Negative for clubbing or cyanosis. Positive edema, +4. DERMATOLOGIC: No rashes. MUSCULOSKELETAL: Have no joint effusion. NEUROLOGIC: No change in exam. MEDICATIONS: The patient's medications have been reviewed. IMAGING: Chest x-ray shows resolution of pulmonary congestion. Objective Vital Signs Date Time Temp Pulse Resp B/P Pulse Ox O2 Delivery O2 Flow Rate FiO2 09/13/16 08:10 103 09/13/16 06:45 35 94/64 100 09/13/16 06:00 Mechanical Ventilator 09/13/16 05:10 30 09/13/16 04:00 97.5 Intake and Output 09/12/16 09/12/16 09/13/16 15:00 23:00 07:00 Intake Total 1033.9146 ml 1147.024 ml 1157.284 ml Output Total 260 ml 245 ml Balance 1033.9146 ml 887.024 ml 912.284 ml Results/Medications Result Diagram: 09/13/16 0430 09/13/16 0430 Results 24 hrs Laboratory Tests Test 09/12/16 12:06 09/12/16 16:42 09/12/16 20:22 09/13/16 00:43 Bedside Glucose 174 183 176 175 Test 09/13/16 04:30 09/13/16 05:15 White Blood Count 16.8 H Red Blood Count 2.42 L Hemoglobin 7.7 L Hematocrit 21.6 L Mean Corpuscular Volume 89.3 Mean Corpuscular Hemoglobin 31.8 Mean Corpuscular Hemoglobin Concent 35.6 Red Cell Distribution Width 18.8 H Platelet Count 59 #L Mean Platelet Volume 13.7 H Neutrophils % 92.0 H Lymphocytes % 2.1 L Monocytes % 2.7 Eosinophils % 0.0 Basophils % 0.1 Nucleated Red Blood Cells % 2.4 H Neutrophils # 15.5 H Lymphocytes # 0.4 L Monocytes # 0.5 Eosinophils # 0.0 Basophils # 0.0 Nucleated Red Blood Cells # 0.4 H Sodium Level 129 L Potassium Level 3.6 Chloride Level 101 Carbon Dioxide Level 21 Anion Gap 11 Blood Urea Nitrogen 25 H Creatinine 0.95 Glucose Level 143 Calcium Level 7.4 L Phosphorus Level 3.3 Magnesium Level 2.2 Bedside Glucose 162 Medications Current Medications Acetaminophen (Tylenol Tab) 650 mg Q6H PRN PO PAIN LEVEL 1-3 OR FEVER; Start at 18:30 Acetaminophen/ Hydrocodone Bitart ([place] (5/325)) 1 tab Q6H PRN PO MODERATE PAIN LEVEL 4-6; Start 09/05/16 at 18:30 Morphine Sulfate (morphine) 2 mg Q4H PRN IV SEVERE PAIN LEVEL 7-10; Start 09/05 at 18:30 Docusate Sodium (Colace) 100 mg Q12H PRN PO CONSTIPATION; Start 09/05/16 at 18: 30 Magnesium Hydroxide (Milk Of Mag) 30 ml DAILY PRN PO CONSTIPATION; Start at 18:30 Sodium Biphosphate/ Sodium Phosphate (Fleet Enema) 133 ml DAILY PRN [place] CONSTIPATION; Start 09/05/16 at 18:30 Lorazepam 0.5 mg 0.5 mg Q6H PRN IV ANXIETY; Start 09/05/16 at 18:30 Piperacillin Sod/ Tazobactam Sod (Zosyn 2.25gm/ 50ml (Pmx)) 50 ml @ 100 mls/hr Q6 IVPB Last administered on 09/13/16t 05:12; Admin Dose 100 MLS/HR; Start 09/06 at 00:00 Vancomycin HCl (Vanco Iv Per Pharmacy) VANCOMYCIN PER PHARMACY NOTE XX ; Start 09/05/16 at 18:30 Hydralazine HCl (Apresoline) 10 mg Q6H PRN IV ELEVATED BLOOD PRESSURE; Start at 18:30 Nitroglycerin (Nitroglycerin (Sl Tab) 0.4 Mg) 1 tab Q5M PRN SL ANGINA; Start at 18:30 Insulin Aspart (Novolog Insulin Pen) NOVOLOG *MILD* ALGORI... Q4 SC Last administered on 09/13/16 05:20; Admin Dose 1 UNIT; Start 09/05/16 at 21:00 Miscellaneous Information 1 ea NOTE XX ; Start 09/05/16 at 19:00 Glucose (Glutose) 15 gm Q15M PRN PO DECREASED GLUCOSE; Start 09/05/16 at 19:00 Glucose (Glutose) 22.5 gm Q15M PRN PO DECREASED GLUCOSE; Start 09/05/16 at 19: 00 Dextrose (D50w Syringe) 25 ml Q15M PRN IV DECREASED GLUCOSE; Start 09/05/16 at 19:00 Dextrose (D50w Syringe) 50 ml Q15M PRN IV DECREASED GLUCOSE; Start 09/05/16 at 19:00 Glucagon (Glucagen) 1 mg Q15M PRN IM DECREASED GLUCOSE; Start 09/05/16 at 19:00 Glucose 15 gm 15 gm Q15M PRN BUCCAL DECREASED GLUCOSE; Start 09/05/16 at 19:00 Ondansetron HCl/ Sodium Chloride (Zofran Inj/NS) 54 ml @ 216 mls/hr Q6H PRN IV NAUSEA AND/OR VOMITING Last administered on 09/07/16 17:27; Admin Dose 216 MLS/HR; Start 09/06/16 at 10:30 Pantoprazole (Protonix Iv) 40 mg BID@06,18 IV Last administered on 09/13/16 05: 13; Admin Dose 40 MG; Start 09/08/16 at 18:00 Hydrocortisone 100 mg 100 mg Q8 IV Last administered on 09/13/16 05:13; Admin Dose 100 MG; Start 09/08/16 at 14:00 Metronidazole 100 ml @ 100 mls/hr Q8 IVPB Last administered on 09/13/16 05:13 ; Admin Dose 100 MLS/HR; Start 09/08/16 at 14:00 Fluconazole/ Sodium Chloride (Diflucan 100 Mg/ NS (Pmx)) 50 ml @ 50 mls/hr Q24H IVPB Last administered on 09/12/16 14:17; Admin Dose 50 MLS/HR; Start 09/09/16 at 14:30 Digoxin 125 mcg 125 mcg DAILY@13 IV Last administered on 09/12/16 12:09; Admin Dose 125 MCG; Start 09/10/16 at 13:00 Phenylephrine HCl/ Sodium Chloride (Julio-Syneph/NS) 500 ml @ 18.75 mls/ hr TITRATE IV ; Start 09/10/16 at 10:00 Miscellaneous Information PLEASE CHANGE ALL IVPB F... DAILY XX Last administered on 09/11/16 08:05; Admin Dose 1 EA; Start 09/10/16 at 08:30 Vasopressin 60 unit/Sodium Chloride 103 ml @ 0 mls/hr Q12H IVPB ; Start at 09:00; Status Future Hold Total Parenteral Nutrition 1,000 ml @ 40 mls/hr Q24H IV Last administered on 15:40; Admin Dose 40 MLS/HR; Start 09/11/16 at 16:00 Fat Emulsion Intravenous 500 ml @ 20.833 mls/ hr Q24H IV Last administered on 09/12/16 15:40; Admin Dose 20.833 MLS/HR; Start 09/11/16 at 16:00 Vancomycin HCl 100 ml @ 100 mls/hr Q24H IVPB Last administered on 09/12/16 20: 21; Admin Dose 100 MLS/HR; Start 09/11/16 at 20:00 Norepinephrine 16 mg/Sodium Chloride 500 ml @ 0 mls/hr TITRATE IV Last administered on 09/12/16 00:00; Admin Dose 15 MLS/HR; Start 09/11/16 at 20:31 Sodium Chloride 1,000 ml @ 50 mls/hr Q20H IV Last administered on 09/12/16 09: 00; Admin Dose 50 MLS/HR; Start 09/12/16 at 09:00 Fentanyl (Sublimaze) 100 ml @ 5 mls/hr TITRATE IV Last administered on 07:46; Admin Dose 10 MLS/HR; Start 09/13/16 at 07:45 Assessment/Plan Chief Complaint/Hosp Course 1. Acute hyponatremia. Etiology is unclear, likely multifactorial in conjunction with hypotonic fluid, sepsis, questionable SIADH. The patient's urine studies; however, were not consistent with SIADH, as urine studies were remarkably low. However, there still does appear to be somewhat impairment in aquaresis. The patient's sodium levels have improved with free water restriction and removing hypotonic fluids. At this point, continue the current treatment plan, continue to monitor sodium levels closely. Please note, hypokalemia was also a contributing factor to hyponatremia, and potassium levels will be corrected. 2. Hypokalemia. Will monitor and replete with potassium chloride. 3. Volume overload secondary capillary leak, third spacing and congestive heart failure. The patient remains on pressor support. Would continue to defer diuretic therapy; however, if the patient is able to be weaned off pressors, would consider aggressively diuresing. 4. Bilateral nephrostomy tubes. Etiology is likely from hydronephrosis due to a history of cervical cancer. The patient's urinary output has been adequate and recent renal ultrasound shows no evidence of hydronephrosis. Continue to monitor. 5. Nonoliguric acute kidney injury. Etiology is likely secondary to hemodynamics, sepsis. Continue to monitor renal functions closely. Continue supportive care, renally dose meds, and avoid nephrotoxins. 6. Septic shock. Etiology is likely from perforated bowel. Continue the current antibiotic regimen. Continue pressor support and IV fluids. 7. Ventilatory-dependent respiratory failure. Vent settings have been reviewed. ABG has been reviewed. Continue to monitor. 8. Perforated bowel. Continue the current treatment plan. Patient was seen by general surgeon. No plan for intervention at this time. 9. Elevated troponin and [id number] myocardial infarction type 2. Continue medical management. 10. History of metastatic cervical cancer. Continue medical management. 11. History of cardiomyopathy, with an ejection fraction of 20%. Continue to monitor. Follow up with cardiology. Problems: ZANE HOLLINS MD Sep 13, 2016 09:02
[2016-09-13] MEDS: POTASSIUM CHLORIDE 50 ML IVPB PRN ×2 (09:29→10:52)
[2016-09-13] MEDS: [UNRECOGNIZED DRUG - REMARK] XX SCH (09:29)
--- NOTE | 2016-09-13 09:42 | CONS ---
Date/Time of Note Date/Time of Note DATE: 09/13/16 TIME: 09:39 Assessment/Plan Assessment/Plan Additional Assessment/Plan Ventilator setting; AC of 16, tidal volume 400, PEEP of 5, 30% FiO2. Patient currently on fentanyl at 100 mics per hour. Assessment recommendations; 1. Patient admitted for respiratory failure due to sepsis from bowel perforation. 2. Widely metastatic cervical cancer. 3. Anemia. 4. Thrombocytopenia. 5. Hyponatremia. 6. Ileus. 7. Improving hypotension, patient off pressor support. Continue supportive care. Patient is not a candidate for any surgical intervention regarding bowel perforation. Continue TPN for now. Prognosis is extremely poor. 35 minutes critical care time was spent E evaluating the patient. Consultation Date/Type/Reason Admit Date/Time September 05, 2016 at 16:23 Initial Consult Date 09/06/16 Type of Consultation: Pulmonary/critical care Referring Provider: ONEIDA COLEMAN 24 HR Interval Summary Free Text/Dictation Patient condition remains critical. Still on full ventilator support. Patient however is off Levophed drip. And has remained hemodynamically stable. No untoward events reported. General exam; elderly woman, orally intubated, sedated. Currently in no distress. Exam/Review of Systems Vital Signs Vitals Vital Signs Date Time Temp Pulse Resp B/P Pulse Ox O2 Delivery O2 Flow Rate FiO2 09/13/16 09:00 102 23 93/58 100 Mechanical Ventilator 09/13/16 08:00 97.3 09/13/16 05:10 30 Intake and Output 09/12/16 09/12/16 09/13/16 15:00 23:00 07:00 Intake Total 1033.9146 ml 1147.024 ml 1157.284 ml Output Total 260 ml 245 ml Balance 1033.9146 ml 887.024 ml 912.284 ml Exam HEENT examination; supple neck, no JVD. No lymphadenopathy. Midline trachea. No thyromegaly. Orally intubated. Patient has fair dentition. Pupils are small bilaterally and reactive to light equally. Chest examination; clear to auscultation. S1-S2 audible, no murmurs. Regular rhythm. Abdomen examination; soft, no organomegaly. Bowel sounds are absent. Abdomen is nondistended. Extremity exam; 2+ pitting edema in lower extremities. APPROVER examination; patient is sedated. Results Result Diagram: 6/3/17 0430 09/13/16 0430 Results 24 hrs Laboratory Tests Test 09/12/16 12:06 09/12/16 16:42 09/12/16 20:22 09/13/16 00:43 Bedside Glucose 174 183 176 175 Test 09/13/16 04:30 09/13/16 05:15 09/13/16 09:21 White Blood Count 16.8 H Red Blood Count 2.42 L Hemoglobin 7.7 L Hematocrit 21.6 L Mean Corpuscular Volume 89.3 Mean Corpuscular Hemoglobin 31.8 Mean Corpuscular Hemoglobin Concent 35.6 Red Cell Distribution Width 18.8 H Platelet Count 59 #L Mean Platelet Volume 13.7 H Neutrophils % 92.0 H Lymphocytes % 2.1 L Monocytes % 2.7 Eosinophils % 0.0 Basophils % 0.1 Nucleated Red Blood Cells % 2.4 H Neutrophils # 15.5 H Lymphocytes # 0.4 L Monocytes # 0.5 Eosinophils # 0.0 Basophils # 0.0 Nucleated Red Blood Cells # 0.4 H Sodium Level 129 L Potassium Level 3.6 Chloride Level 101 Carbon Dioxide Level 21 Anion Gap 11 Blood Urea Nitrogen 25 H Creatinine 0.95 Glucose Level 143 Calcium Level 7.4 L Phosphorus Level 3.3 Magnesium Level 2.2 Bedside Glucose 162 159 Medications Medications Current Medications Acetaminophen (Tylenol Tab) 650 mg Q6H PRN PO PAIN LEVEL 1-3 OR FEVER; Start at 18:30 Acetaminophen/ Hydrocodone Bitart ([place] (5/325)) 1 tab Q6H PRN PO MODERATE PAIN LEVEL 4-6; Start 09/05/16 at 18:30 Morphine Sulfate (morphine) 2 mg Q4H PRN IV SEVERE PAIN LEVEL 7-10; Start 09/05 at 18:30 Docusate Sodium (Colace) 100 mg Q12H PRN PO CONSTIPATION; Start 09/05/16 at 18: 30 Magnesium Hydroxide (Milk Of Mag) 30 ml DAILY PRN PO CONSTIPATION; Start at 18:30 Sodium Biphosphate/ Sodium Phosphate (Fleet Enema) 133 ml DAILY PRN [place] CONSTIPATION; Start 09/05/16 at 18:30 Lorazepam 0.5 mg 0.5 mg Q6H PRN IV ANXIETY; Start 09/05/16 at 18:30 Piperacillin Sod/ Tazobactam Sod (Zosyn 2.25gm/ 50ml (Pmx)) 50 ml @ 100 mls/hr Q6 IVPB Last administered on 09/13/16 05:12; Admin Dose 100 MLS/HR; Start 09/06 at 00:00 Vancomycin HCl (Vanco Iv Per Pharmacy) VANCOMYCIN PER PHARMACY NOTE XX ; Start 09/05/16 at 18:30 Hydralazine HCl (Apresoline) 10 mg Q6H PRN IV ELEVATED BLOOD PRESSURE; Start at 18:30 Nitroglycerin (Nitroglycerin (Sl Tab) 0.4 Mg) 1 tab Q5M PRN SL ANGINA; Start at 18:30 Insulin Aspart (Novolog Insulin Pen) NOVOLOG *MILD* ALGORI... Q4 SC Last administered on 09/13/16 09:31; Admin Dose 1 UNIT; Start 09/05/16 at 21:00 Miscellaneous Information 1 ea NOTE XX ; Start 09/05/16 at 19:00 Glucose (Glutose) 15 gm Q15M PRN PO DECREASED GLUCOSE; Start 09/05/16 at 19:00 Glucose (Glutose) 22.5 gm Q15M PRN PO DECREASED GLUCOSE; Start 09/05/16 at 19: 00 Dextrose (D50w Syringe) 25 ml Q15M PRN IV DECREASED GLUCOSE; Start 09/05/16 at 19:00 Dextrose (D50w Syringe) 50 ml Q15M PRN IV DECREASED GLUCOSE; Start 09/05/16 at 19:00 Glucagon (Glucagen) 1 mg Q15M PRN IM DECREASED GLUCOSE; Start 09/05/16 at 19:00 Glucose 15 gm 15 gm Q15M PRN BUCCAL DECREASED GLUCOSE; Start 09/05/16 at 19:00 Ondansetron HCl/ Sodium Chloride (Zofran Inj/NS) 54 ml @ 216 mls/hr Q6H PRN IV NAUSEA AND/OR VOMITING Last administered on 09/07/16 17:27; Admin Dose 216 MLS/HR; Start 09/06/16 at 10:30 Pantoprazole (Protonix Iv) 40 mg BID@06,18 IV Last administered on 09/13/16 05: 13; Admin Dose 40 MG; Start 09/08/16 at 18:00 Hydrocortisone 100 mg 100 mg Q8 IV Last administered on 09/13/16 05:13; Admin Dose 100 MG; Start 09/08/16 at 14:00 Metronidazole 100 ml @ 100 mls/hr Q8 IVPB Last administered on 09/13/16 05:13 ; Admin Dose 100 MLS/HR; Start 09/08/16 at 14:00 Fluconazole/ Sodium Chloride (Diflucan 100 Mg/ NS (Pmx)) 50 ml @ 50 mls/hr Q24H IVPB Last administered on 09/12/16 14:17; Admin Dose 50 MLS/HR; Start 09/09/16 at 14:30 Digoxin 125 mcg 125 mcg DAILY@13 IV Last administered on 09/12/16 12:09; Admin Dose 125 MCG; Start 09/10/16 at 13:00 Phenylephrine HCl/ Sodium Chloride (Julio-Syneph/NS) 500 ml @ 18.75 mls/ hr TITRATE IV ; Start 09/10/16 at 10:00 Miscellaneous Information PLEASE CHANGE ALL IVPB F... DAILY XX Last administered on 09/13/16 09:29; Admin Dose 1 EA; Start 09/10/16 at 08:30 Vasopressin 60 unit/Sodium Chloride 103 ml @ 0 mls/hr Q12H IVPB ; Start at 09:00; Status Future Hold Total Parenteral Nutrition 1,000 ml @ 40 mls/hr Q24H IV Last administered on 15:40; Admin Dose 40 MLS/HR; Start 09/11/16 at 16:00 Fat Emulsion Intravenous 500 ml @ 20.833 mls/ hr Q24H IV Last administered on 09/12/16 15:40; Admin Dose 20.833 MLS/HR; Start 09/11/16 at 16:00 Vancomycin HCl 100 ml @ 100 mls/hr Q24H IVPB Last administered on 09/12/16 20: 21; Admin Dose 100 MLS/HR; Start 09/11/16 at 20:00 Norepinephrine 16 mg/Sodium Chloride 500 ml @ 0 mls/hr TITRATE IV Last administered on 09/12/16 00:00; Admin Dose 15 MLS/HR; Start 09/11/16 at 20:31 Sodium Chloride 1,000 ml @ 50 mls/hr Q20H IV Last administered on 09/12/16 09: 00; Admin Dose 50 MLS/HR; Start 09/12/16 at 09:00 Fentanyl (Sublimaze) 100 ml @ 5 mls/hr TITRATE IV Last administered on 07:46; Admin Dose 10 MLS/HR; Start 09/13/16 at 07:45 SKYLER ESTEVES Sep 13, 2016 09:42
--- NOTE | 2016-09-13 09:57 | PN ---
Date/Time of Note Date/Time of Note DATE: 09/13/16 TIME: 09:24 Assessment/Plan VTE Prophylaxis VTE Prophylaxis Intervention: SCD's VTE Contraindication Reason: anticoagulation not tolerated (Patient is a very high bleeding risk from GI tumor) Lines/Catheters IV Catheter Type (from Nrs): PICC Line Central line still needed: Yes Urinary Cath still in place: No Assessment/Plan Assessment/Plan This is a 61-year-old female who came in with weakness and low blood pressure with a history of metastatic cervical cancer on radiation therapy now managed as follows: 1. Severe systemic systemic inflammatory response syndrome with shock in patient with known metastatic cancer likely due to sepsis 2. Post colonoscopy perforated viscus * Large pelvic mass invading colon wall site of perforation * Contrast leakage to pelvic area * ?Contained perforation as no evidence of generalized peritonitis 3. Metastatic cervical CA with large mass in sigmoid colon, metastases to brain and adrenal gland status post chemotherapy immunotherapy and radiation 4. Chronic ureteral obstruction from #3 s/p nephrostomy tube bilateral 5. Severe cardiomyopathy with EF 20% thought to be likely ischemic 6. Occult GI bleed secondary to metastatic mass 7. Recurrent anemia requiring transfusion secondary to the above 8. Acute respiratory failure secondary to profound septic shock 9. Underlying abdominal ileus secondary to an obstructing sigmoid colon mass with patient now on TPN PLAN: Continue intensive care unit monitoring. Continue to wean pressors to keep systolic blood pressure above 90 Continue vent management and weaning Serial lab monitoring and electrolyte replacement Started on steroids per pulmonary Continue digoxin per cardiology Continue empiric broad-spectrum antibiotics for sepsis in an immunosuppressed patient with unclear source / consider infectious disease consult Definitely not a candidate for any form of cancer therapy at this point [employer] management and recommendations is appreciated Deep venous thrombosis prophylaxis. Bilateral sequential compression devices. Gastrointestinal prophylaxis. Proton pump inhibitors. Extremely poor prognosis. Critical CARE time: 45 minutes Subjective 24 Hr Interval Summary Free Text/Dictation Patient seen and examined. Nursing reports no acute overnight events. Family at bedside. Updaed on clinical condition Remains intubated / on minimal sedation / on pressor support Exam/Review of Systems Vital Signs Vitals Vital Signs Date Time Temp Pulse Resp B/P Pulse Ox O2 Delivery O2 Flow Rate FiO2 09/13/16 09:00 102 23 93/58 100 Mechanical Ventilator 09/13/16 08:00 97.3 09/13/16 05:10 30 Intake and Output 6/209/12/16 09/13/16 15:00 23:00 07:00 Intake Total 1033.9146 ml 1147.024 ml 1157.284 ml Output Total 260 ml 245 ml Balance 1033.9146 ml 887.024 ml 912.284 ml Exam General: The patient is well-developed, Not in acute distress. HEENT: Atraumatic, normocephalic. The pupils are equal and round . NG tube in place to suction, intubated Neck: Supple Chest: Normal expansion of the thorax during inspiration Lungs: Clear to auscultation bilaterally Heart: Normal S1-S2, Regular rhythm and rate. Abdomen: Soft , nontender, nondistended , bowel sounds are present. Extremities: edema 3-4+ with anasarca in abd and lower extremities Neurologic:The patient is awake, alert / follows commands Results Result Diagram: 09/13/16 0430 09/13/16 0430 Results 24 hrs Laboratory Tests Test 09/12/16 12:06 09/12/16 16:42 09/12/16 20:22 09/13/16 00:43 Bedside Glucose 174 183 176 175 Test 09/13/16 04:30 09/13/16 05:15 09/13/16 09:21 White Blood Count 16.8 H Red Blood Count 2.42 L Hemoglobin 7.7 L Hematocrit 21.6 L Mean Corpuscular Volume 89.3 Mean Corpuscular Hemoglobin 31.8 Mean Corpuscular Hemoglobin Concent 35.6 Red Cell Distribution Width 18.8 H Platelet Count 59 #L Mean Platelet Volume 13.7 H Neutrophils % 92.0 H Lymphocytes % 2.1 L Monocytes % 2.7 Eosinophils % 0.0 Basophils % 0.1 Nucleated Red Blood Cells % 2.4 H Neutrophils # 15.5 H Lymphocytes # 0.4 L Monocytes # 0.5 Eosinophils # 0.0 Basophils # 0.0 Nucleated Red Blood Cells # 0.4 H Sodium Level 129 L Potassium Level 3.6 Chloride Level 101 Carbon Dioxide Level 21 Anion Gap 11 Blood Urea Nitrogen 25 H Creatinine 0.95 Glucose Level 143 Calcium Level 7.4 L Phosphorus Level 3.3 Magnesium Level 2.2 Bedside Glucose 162 159 Medications Medications Current Medications Acetaminophen (Tylenol Tab) 650 mg Q6H PRN PO PAIN LEVEL 1-3 OR FEVER; Start at 18:30 Acetaminophen/ Hydrocodone Bitart ([place] (5/325)) 1 tab Q6H PRN PO MODERATE PAIN LEVEL 4-6; Start 09/05/16 at 18:30 Morphine Sulfate (morphine) 2 mg Q4H PRN IV SEVERE PAIN LEVEL 7-10; Start 09/05 at 18:30 Docusate Sodium (Colace) 100 mg Q12H PRN PO CONSTIPATION; Start 09/05/16 at 18: 30 Magnesium Hydroxide (Milk Of Mag) 30 ml DAILY PRN PO CONSTIPATION; Start at 18:30 Sodium Biphosphate/ Sodium Phosphate (Fleet Enema) 133 ml DAILY PRN [place] CONSTIPATION; Start 09/05/16 at 18:30 Lorazepam 0.5 mg 0.5 mg Q6H PRN IV ANXIETY; Start 09/05/16 at 18:30 Piperacillin Sod/ Tazobactam Sod (Zosyn 2.25gm/ 50ml (Pmx)) 50 ml @ 100 mls/hr Q6 IVPB Last administered on 09/13/16 05:12; Admin Dose 100 MLS/HR; Start 09/06 at 00:00 Vancomycin HCl (Vanco Iv Per Pharmacy) VANCOMYCIN PER PHARMACY NOTE XX ; Start 09/05/16 at 18:30 Hydralazine HCl (Apresoline) 10 mg Q6H PRN IV ELEVATED BLOOD PRESSURE; Start at 18:30 Nitroglycerin (Nitroglycerin (Sl Tab) 0.4 Mg) 1 tab Q5M PRN SL ANGINA; Start at 18:30 Insulin Aspart (Novolog Insulin Pen) NOVOLOG *MILD* ALGORI... Q4 SC Last administered on 09/13/16 05:20; Admin Dose 1 UNIT; Start 09/05/16 at 21:00 Miscellaneous Information 1 ea NOTE XX ; Start 09/05/16 at 19:00 Glucose (Glutose) 15 gm Q15M PRN PO DECREASED GLUCOSE; Start 09/05/16 at 19:00 Glucose (Glutose) 22.5 gm Q15M PRN PO DECREASED GLUCOSE; Start 09/05/16 at 19: 00 Dextrose (D50w Syringe) 25 ml Q15M PRN IV DECREASED GLUCOSE; Start 09/05/16 at 19:00 Dextrose (D50w Syringe) 50 ml Q15M PRN IV DECREASED GLUCOSE; Start 09/05/16 at 19:00 Glucagon (Glucagen) 1 mg Q15M PRN IM DECREASED GLUCOSE; Start 09/05/16 at 19:00 Glucose 15 gm 15 gm Q15M PRN BUCCAL DECREASED GLUCOSE; Start 09/05/16 at 19:00 Ondansetron HCl/ Sodium Chloride (Zofran Inj/NS) 54 ml @ 216 mls/hr Q6H PRN IV NAUSEA AND/OR VOMITING Last administered on 09/07/16 17:27; Admin Dose 216 MLS/HR; Start 09/06/16 at 10:30 Pantoprazole (Protonix Iv) 40 mg BID@06,18 IV Last administered on 09/13/16 05: 13; Admin Dose 40 MG; Start 09/08/16 at 18:00 Hydrocortisone 100 mg 100 mg Q8 IV Last administered on 09/13/16 05:13; Admin Dose 100 MG; Start 09/08/16 at 14:00 Metronidazole 100 ml @ 100 mls/hr Q8 IVPB Last administered on 09/13/16 05:13 ; Admin Dose 100 MLS/HR; Start 09/08/16 at 14:00 Fluconazole/ Sodium Chloride (Diflucan 100 Mg/ NS (Pmx)) 50 ml @ 50 mls/hr Q24H IVPB Last administered on 09/12/16 14:17; Admin Dose 50 MLS/HR; Start 09/09/16 at 14:30 Digoxin 125 mcg 125 mcg DAILY@13 IV Last administered on 09/12/16 12:09; Admin Dose 125 MCG; Start 09/10/16 at 13:00 Phenylephrine HCl/ Sodium Chloride (Julio-Syneph/NS) 500 ml @ 18.75 mls/ hr TITRATE IV ; Start 09/10/16 at 10:00 Miscellaneous Information PLEASE CHANGE ALL IVPB F... DAILY XX Last administered on 09/11/16 08:05; Admin Dose 1 EA; Start 09/10/16 at 08:30 Vasopressin 60 unit/Sodium Chloride 103 ml @ 0 mls/hr Q12H IVPB ; Start at 09:00; Status Future Hold Total Parenteral Nutrition 1,000 ml @ 40 mls/hr Q24H IV Last administered on 15:40; Admin Dose 40 MLS/HR; Start 09/11/16 at 16:00 Fat Emulsion Intravenous 500 ml @ 20.833 mls/ hr Q24H IV Last administered on 09/12/16 15:40; Admin Dose 20.833 MLS/HR; Start 09/11/16 at 16:00 Vancomycin HCl 100 ml @ 100 mls/hr Q24H IVPB Last administered on 09/12/16 20: 21; Admin Dose 100 MLS/HR; Start 09/11/16 at 20:00 Norepinephrine 16 mg/Sodium Chloride 500 ml @ 0 mls/hr TITRATE IV Last administered on 09/12/16 00:00; Admin Dose 15 MLS/HR; Start 09/11/16 at 20:31 Sodium Chloride 1,000 ml @ 50 mls/hr Q20H IV Last administered on 09/12/16 09: 00; Admin Dose 50 MLS/HR; Start 09/12/16 at 09:00 Fentanyl (Sublimaze) 100 ml @ 5 mls/hr TITRATE IV Last administered on 07:46; Admin Dose 10 MLS/HR; Start 09/13/16 at 07:45 BREN FISCHER Sep 13, 2016 09:34
[2016-09-13] MEDS ORDERED: POTASSIUM CHLORIDE 20 MEQ in SOD CHLORIDE 0.9% 100 ML IVPB ONE (11:00)
[2016-09-13] MEDS: DIGOXIN 500 MCG INJ IV SCH (13:30)
--- NOTE | 2016-09-13 14:08 | CONS ---
Date/Time of Note Date/Time of Note DATE: 09/13/16 TIME: 14:06 Assessment/Plan Assessment/Plan Chief Complaint/Hosp Course SUBJECTIVE: No events overnight. No fevers, looks comfortable on vent INDWELLINGS: Endotracheal tube, NG tube, PICC line, placed 09/11/2016, right chest Port-A-Cath. ANTIMICROBIALS: The patient is on: 1. IV vancomycin. 2. Fluconazole. 4. Flagyl. 5. Zosyn. 6. She is also on Solu-Cortef. PHYSICAL EXAMINATION: GENERAL: Chronically ill-appearing, elderly woman, in no distress. HEENT: Head atraumatic, normocephalic. Sclerae anicteric. Buccal mucosa dry. NECK: Supple, trachea midline. CHEST: Chest rise is symmetrical. Breath sounds diminished to the bases. HEART: S1, S2. ABDOMEN: Soft, bowel tones present. Abdomen distended. Bowel tones hypoactive. EXTREMITIES: With bilateral edema. ASSESSMENT: 1. Sepsis with shock and multisystem organ failure. 2. Large pelvic masses, proximal sigmoid colon obstruction and perforation, as per CT of the abdomen, metastatic cervical cancer. 3. Left adrenal mass, possible metastasis. 4. Urinary tract infection, per urinalysis. 5. Acute renal and respiratory failure. PLAN: Stable off pressors, continue broad-spectrum antibiotics . Pt is not a surgical candidate. Prognosis is poor. DW staff Problems: Consultation Date/Type/Reason Admit Date/Time September 05, 2016 at 16:23 Initial Consult Date 09/06/16 Type of Consultation: ID Referring Provider: ONEIDA COLEMAN Exam/Review of Systems Vital Signs Vitals Vital Signs Date Time Temp Pulse Resp B/P Pulse Ox O2 Delivery O2 Flow Rate FiO2 09/13/16 12:14 105 09/13/16 11:32 18 100 30 09/13/16 09:00 93/58 Mechanical Ventilator 09/13/16 08:00 97.3 Intake and Output 09/12/16 09/12/16 09/13/16 15:00 23:00 07:00 Intake Total 1033.9146 ml 1147.024 ml 1157.284 ml Output Total 260 ml 245 ml Balance 1033.9146 ml 887.024 ml 912.284 ml Results Result Diagram: 09/13/16 0430 09/13/16 0430 Results 24 hrs Laboratory Tests Test 09/12/16 16:42 09/12/16 20:22 09/13/16 00:43 09/13/16 04:30 Bedside Glucose 183 176 175 White Blood Count 16.8 H Red Blood Count 2.42 L Hemoglobin 7.7 L Hematocrit 21.6 L Mean Corpuscular Volume 89.3 Mean Corpuscular Hemoglobin 31.8 Mean Corpuscular Hemoglobin Concent 35.6 Red Cell Distribution Width 18.8 H Platelet Count 59 #L Mean Platelet Volume 13.7 H Neutrophils % 92.0 H Lymphocytes % 2.1 L Monocytes % 2.7 Eosinophils % 0.0 Basophils % 0.1 Nucleated Red Blood Cells % 2.4 H Neutrophils # 15.5 H Lymphocytes # 0.4 L Monocytes # 0.5 Eosinophils # 0.0 Basophils # 0.0 Nucleated Red Blood Cells # 0.4 H Sodium Level 129 L Potassium Level 3.6 Chloride Level 101 Carbon Dioxide Level 21 Anion Gap 11 Blood Urea Nitrogen 25 H Creatinine 0.95 Glucose Level 143 Calcium Level 7.4 L Phosphorus Level 3.3 Magnesium Level 2.2 Test 09/13/16 05:15 09/13/16 09:21 09/13/16 13:20 Bedside Glucose 162 159 149 Medications Medications Current Medications Acetaminophen (Tylenol Tab) 650 mg Q6H PRN PO PAIN LEVEL 1-3 OR FEVER; Start at 18:30 Morphine Sulfate (morphine) 2 mg Q4H PRN IV SEVERE PAIN LEVEL 7-10; Start 09/05 at 18:30 Docusate Sodium (Colace) 100 mg Q12H PRN PO CONSTIPATION; Start 09/05/16 at 18: 30 Magnesium Hydroxide (Milk Of Mag) 30 ml DAILY PRN PO CONSTIPATION; Start at 18:30 Sodium Biphosphate/ Sodium Phosphate (Fleet Enema) 133 ml DAILY PRN [place] CONSTIPATION; Start 09/05/16 at 18:30 Lorazepam 0.5 mg 0.5 mg Q6H PRN IV ANXIETY; Start 09/05/16 at 18:30 Piperacillin Sod/ Tazobactam Sod (Zosyn 2.25gm/ 50ml (Pmx)) 50 ml @ 100 mls/hr Q6 IVPB Last administered on 09/13/16t 12:04; Admin Dose 100 MLS/HR; Start 09/06 at 00:00 Vancomycin HCl (Vanco Iv Per Pharmacy) VANCOMYCIN PER PHARMACY NOTE XX ; Start 09/05/16 at 18:30 Hydralazine HCl (Apresoline) 10 mg Q6H PRN IV ELEVATED BLOOD PRESSURE; Start at 18:30 Nitroglycerin (Nitroglycerin (Sl Tab) 0.4 Mg) 1 tab Q5M PRN SL ANGINA; Start at 18:30 Insulin Aspart (Novolog Insulin Pen) NOVOLOG *MILD* ALGORI... Q4 SC Last administered on 09/13/16 13:33; Admin Dose 1 UNIT; Start 09/05/16 at 21:00 Miscellaneous Information 1 ea NOTE XX ; Start 09/05/16 at 19:00 Glucose (Glutose) 15 gm Q15M PRN PO DECREASED GLUCOSE; Start 09/05/16 at 19:00 Glucose (Glutose) 22.5 gm Q15M PRN PO DECREASED GLUCOSE; Start 09/05/16 at 19: 00 Dextrose (D50w Syringe) 25 ml Q15M PRN IV DECREASED GLUCOSE; Start 09/05/16 at 19:00 Dextrose (D50w Syringe) 50 ml Q15M PRN IV DECREASED GLUCOSE; Start 09/05/16 at 19:00 Glucagon (Glucagen) 1 mg Q15M PRN IM DECREASED GLUCOSE; Start 09/05/16 at 19:00 Glucose 15 gm 15 gm Q15M PRN BUCCAL DECREASED GLUCOSE; Start 09/05/16 at 19:00 Ondansetron HCl/ Sodium Chloride (Zofran Inj/NS) 54 ml @ 216 mls/hr Q6H PRN IV NAUSEA AND/OR VOMITING Last administered on 09/07/16 17:27; Admin Dose 216 MLS/HR; Start 09/06/16 at 10:30 Pantoprazole 40 mg 40 mg BID@06,18 IV Last administered on 09/13/16 05:13; Admin Dose 40 MG; Start 09/08/16 at 18:00 Metronidazole 100 ml @ 100 mls/hr Q8 IVPB Last administered on 09/13/16 13:31 ; Admin Dose 100 MLS/HR; Start 09/08/16 at 14:00 Fluconazole/ Sodium Chloride (Diflucan 100 Mg/ NS (Pmx)) 50 ml @ 50 mls/hr Q24H IVPB Last administered on 09/12/16 14:17; Admin Dose 50 MLS/HR; Start 09/09/16 at 14:30 Digoxin 125 mcg 125 mcg DAILY@13 IV Last administered on 09/13/16 13:30; Admin Dose 125 MCG; Start 09/10/16 at 13:00 Phenylephrine HCl/ Sodium Chloride (Julio-Syneph/NS) 500 ml @ 18.75 mls/ hr TITRATE IV ; Start 09/10/16 at 10:00 Miscellaneous Information PLEASE CHANGE ALL IVPB F... DAILY XX Last administered on 09/13/16 09:29; Admin Dose 1 EA; Start 09/10/16 at 08:30 Vasopressin 60 unit/Sodium Chloride 103 ml @ 0 mls/hr Q12H IVPB ; Start at 09:00; Status Future Hold Total Parenteral Nutrition 1,000 ml @ 40 mls/hr Q24H IV Last administered on 15:40; Admin Dose 40 MLS/HR; Start 09/11/16 at 16:00 Fat Emulsion Intravenous 500 ml @ 20.833 mls/ hr Q24H IV Last administered on 09/12/16 15:40; Admin Dose 20.833 MLS/HR; Start 09/11/16 at 16:00 Vancomycin HCl 100 ml @ 100 mls/hr Q24H IVPB Last administered on 09/12/16 20: 21; Admin Dose 100 MLS/HR; Start 09/11/16 at 20:00 Norepinephrine 16 mg/Sodium Chloride 500 ml @ 0 mls/hr TITRATE IV Last administered on 09/12/16 00:00; Admin Dose 15 MLS/HR; Start 09/11/16 at 20:31 Sodium Chloride 1,000 ml @ 50 mls/hr Q20H IV Last administered on 09/12/16 09: 00; Admin Dose 50 MLS/HR; Start 09/12/16 at 09:00 Fentanyl (Sublimaze) 100 ml @ 5 mls/hr TITRATE IV Last administered on 07:46; Admin Dose 10 MLS/HR; Start 09/13/16 at 07:45 Hydrocortisone (Solu-Cortef) 50 mg Q8 IV Last administered on 6/3/17at 13:31; Admin Dose 50 MG; Start 09/13/16 at 14:00 BIN MITTAL NP Sep 13, 2016 14:07
[2016-09-13] MEDS: FLUCONAZOLE 100 MG/NS (PMX) 50 ML IVPB SCH (14:55)
[2016-09-13] MEDS: FAT EMULSION 20% 500 ML IV SCH (16:33)
[2016-09-13] MEDS: TPN 1,000 ML IV SCH (16:33)
--- NOTE | 2016-09-13 16:46 | PN ---
Date/Time of Note Date/Time of Note DATE: 09/13/16 TIME: 16:46 Assessment/Plan VTE Prophylaxis VTE Prophylaxis Intervention: SCD's Lines/Catheters IV Catheter Type (from Nrs): PICC Line Central line still needed: Yes Urinary Cath still in place: No Assessment/Plan Assessment/Plan Assessment/Plan Post colonoscopy perforated viscus * Large pelvic mass invading colon wall site of perforation * Contrast leakage to pelvic area * ?Contained perforation as no evidence of generalized peritonitis Sepsis Metastatic cervical CA/Adrenal/brain History of cervical cancer S/P nephrostomy tube bilateral EF 20% Anemia Plan Continue present supportive management Palliative following No GI interventions planned Further recommendations depend on clinical course Subjective 24 Hr Interval Summary Free Text/Dictation Course reviewed with nursing staff Still requiring pressors on a low dose Moderate anemia with no evidence of overt GI bleeding Exam/Review of Systems Vital Signs Vitals Vital Signs Date Time Temp Pulse Resp B/P Pulse Ox O2 Delivery O2 Flow Rate FiO2 09/13/16 16:25 104 30 100 30 09/13/16 15:00 88/73 Mechanical Ventilator 09/13/16 12:00 97.8 Intake and Output 09/12/16 09/12/16 09/13/16 15:00 23:00 07:00 Intake Total 1033.9146 ml 1147.024 ml 1157.284 ml Output Total 260 ml 245 ml Balance 1033.9146 ml 887.024 ml 912.284 ml Exam Constitutional: other (Intubated, sedated) Head: normocephalic Neck: supple, No masses Respiratory: clear to auscultation, diminished breath sounds Cardiovascular: regular rate and rhythm, No murmurs/extra sounds Gastrointestinal: bowel sounds, distended, mass (Suprapubic area fullness), soft (Upper abdomen with fullness in the lower abdomen), No ascites, No rebound or guarding, No tender (Patient is sedated) Musculoskeletal: nl extremities to inspection Skin: nl turgor, No rash or lesions Lymph: nl lymph nodes Results Result Diagram: 09/13/16 0430 09/13/16 0430 Results 24 hrs Laboratory Tests Test 09/12/16 20:22 09/13/16 00:43 09/13/16 04:30 09/13/16 05:15 Bedside Glucose 176 175 162 White Blood Count 16.8 H Red Blood Count 2.42 L Hemoglobin 7.7 L Hematocrit 21.6 L Mean Corpuscular Volume 89.3 Mean Corpuscular Hemoglobin 31.8 Mean Corpuscular Hemoglobin Concent 35.6 Red Cell Distribution Width 18.8 H Platelet Count 59 #L Mean Platelet Volume 13.7 H Neutrophils % 92.0 H Lymphocytes % 2.1 L Monocytes % 2.7 Eosinophils % 0.0 Basophils % 0.1 Nucleated Red Blood Cells % 2.4 H Neutrophils # 15.5 H Lymphocytes # 0.4 L Monocytes # 0.5 Eosinophils # 0.0 Basophils # 0.0 Nucleated Red Blood Cells # 0.4 H Sodium Level 129 L Potassium Level 3.6 Chloride Level 101 Carbon Dioxide Level 21 Anion Gap 11 Blood Urea Nitrogen 25 H Creatinine 0.95 Glucose Level 143 Calcium Level 7.4 L Phosphorus Level 3.3 Magnesium Level 2.2 Test 09/13/16 09:21 09/13/16 13:20 Bedside Glucose 159 149 Medications Medications Current Medications Acetaminophen (Tylenol Tab) 650 mg Q6H PRN PO PAIN LEVEL 1-3 OR FEVER; Start at 18:30 Morphine Sulfate (morphine) 2 mg Q4H PRN IV SEVERE PAIN LEVEL 7-10; Start 09/05 at 18:30 Docusate Sodium (Colace) 100 mg Q12H PRN PO CONSTIPATION; Start 09/05/16 at 18: 30 Magnesium Hydroxide (Milk Of Mag) 30 ml DAILY PRN PO CONSTIPATION; Start at 18:30 Sodium Biphosphate/ Sodium Phosphate (Fleet Enema) 133 ml DAILY PRN [place] CONSTIPATION; Start 09/05/16 at 18:30 Lorazepam 0.5 mg 0.5 mg Q6H PRN IV ANXIETY; Start 09/05/16 at 18:30 Piperacillin Sod/ Tazobactam Sod (Zosyn 2.25gm/ 50ml (Pmx)) 50 ml @ 100 mls/hr Q6 IVPB Last administered on 09/13/16t 12:04; Admin Dose 100 MLS/HR; Start 09/06 at 00:00 Vancomycin HCl (Vanco Iv Per Pharmacy) VANCOMYCIN PER PHARMACY NOTE XX ; Start 09/05/16 at 18:30 Hydralazine HCl (Apresoline) 10 mg Q6H PRN IV ELEVATED BLOOD PRESSURE; Start at 18:30 Nitroglycerin (Nitroglycerin (Sl Tab) 0.4 Mg) 1 tab Q5M PRN SL ANGINA; Start at 18:30 Insulin Aspart (Novolog Insulin Pen) NOVOLOG *MILD* ALGORI... Q4 SC Last administered on 09/13/16 13:33; Admin Dose 1 UNIT; Start 09/05/16 at 21:00 Miscellaneous Information 1 ea NOTE XX ; Start 09/05/16 at 19:00 Glucose (Glutose) 15 gm Q15M PRN PO DECREASED GLUCOSE; Start 09/05/16 at 19:00 Glucose (Glutose) 22.5 gm Q15M PRN PO DECREASED GLUCOSE; Start 09/05/16 at 19: 00 Dextrose (D50w Syringe) 25 ml Q15M PRN IV DECREASED GLUCOSE; Start 09/05/16 at 19:00 Dextrose (D50w Syringe) 50 ml Q15M PRN IV DECREASED GLUCOSE; Start 09/05/16 at 19:00 Glucagon (Glucagen) 1 mg Q15M PRN IM DECREASED GLUCOSE; Start 09/05/16 at 19:00 Glucose 15 gm 15 gm Q15M PRN BUCCAL DECREASED GLUCOSE; Start 09/05/16 at 19:00 Ondansetron HCl/ Sodium Chloride (Zofran Inj/NS) 54 ml @ 216 mls/hr Q6H PRN IV NAUSEA AND/OR VOMITING Last administered on 09/07/16 17:27; Admin Dose 216 MLS/HR; Start 09/06/16 at 10:30 Pantoprazole 40 mg 40 mg BID@06,18 IV Last administered on 09/13/16 05:13; Admin Dose 40 MG; Start 09/08/16 at 18:00 Metronidazole 100 ml @ 100 mls/hr Q8 IVPB Last administered on 09/13/16 13:31 ; Admin Dose 100 MLS/HR; Start 09/08/16 at 14:00 Fluconazole/ Sodium Chloride (Diflucan 100 Mg/ NS (Pmx)) 50 ml @ 50 mls/hr Q24H IVPB Last administered on 09/13/16 14:55; Admin Dose 50 MLS/HR; Start 09/09/16 at 14:30 Digoxin 125 mcg 125 mcg DAILY@13 IV Last administered on 09/13/16 13:30; Admin Dose 125 MCG; Start 09/10/16 at 13:00 Phenylephrine HCl/ Sodium Chloride (Julio-Syneph/NS) 500 ml @ 18.75 mls/ hr TITRATE IV ; Start 09/10/16 at 10:00 Miscellaneous Information PLEASE CHANGE ALL IVPB F... DAILY XX Last administered on 09/13/16 09:29; Admin Dose 1 EA; Start 09/10/16 at 08:30 Vasopressin 60 unit/Sodium Chloride 103 ml @ 0 mls/hr Q12H IVPB ; Start at 09:00; Status Future Hold Total Parenteral Nutrition 1,000 ml @ 40 mls/hr Q24H IV Last administered on 16:33; Admin Dose 40 MLS/HR; Start 09/11/16 at 16:00 Fat Emulsion Intravenous 500 ml @ 20.833 mls/ hr Q24H IV Last administered on 09/13/16 16:33; Admin Dose 20.833 MLS/HR; Start 09/11/16 at 16:00 Vancomycin HCl 100 ml @ 100 mls/hr Q24H IVPB Last administered on 09/12/16 20: 21; Admin Dose 100 MLS/HR; Start 09/11/16 at 20:00 Norepinephrine 16 mg/Sodium Chloride 500 ml @ 0 mls/hr TITRATE IV Last administered on 09/12/16 00:00; Admin Dose 15 MLS/HR; Start 09/11/16 at 20:31 Sodium Chloride 1,000 ml @ 50 mls/hr Q20H IV Last administered on 09/12/16 09: 00; Admin Dose 50 MLS/HR; Start 09/12/16 at 09:00 Fentanyl (Sublimaze) 100 ml @ 5 mls/hr TITRATE IV Last administered on 07:46; Admin Dose 10 MLS/HR; Start 09/13/16 at 07:45 Hydrocortisone (Solu-Cortef) 50 mg Q8 IV Last administered on 09/13/16 13:31; Admin Dose 50 MG; Start 09/13/16 at 14:00 SAKSHI MENA MD Sep 13, 2016 16:46
[2016-09-13] MEDS: VANCOMYCIN 500MG/NS (PMX) 100 ML IVPB SCH (20:50)
--- NOTE | 2016-09-13 20:58 | RADRPT ---
PROCEDURE: XR Chest. CLINICAL INDICATION: Intubated, respiratory failure TECHNIQUE: Anterior chest x-ray. COMPARISON: 09/11/2016 FINDINGS: There is stable and satisfactory position of the life-support lines. The lung volumes are low. There is crowding of central pulmonary vasculature. The cardiomediastinal contour is stable. There is no free air under the hemidiaphragms. The soft tissues and bony structures are unchanged. IMPRESSION: 1. Stable and satisfactory position of the life-support lines. 2. Low lung volumes with compressive changes in bilateral lung bases. RPTAT: HLDM .Pedro Hunt MD, Date Time Electronically viewed and signed by .Pedro Hunt MD, on 09/13/2016 20:58 .M/
[2016-09-13] MEDS: LORAZEPAM 2 MG INJ IV PRN (22:41)
--- NOTE | 2016-09-13 23:54 | PN ---
Date/Time of Note Date/Time of Note DATE: 09/13/16 TIME: 23:51 Assessment/Plan Lines/Catheters IV Catheter Type (from [facility]): PICC Line Fleming in Place (from [facility]): No Assessment/Plan Chief Complaint/Hosp Course 1. Septic shock, multifactorial due to presenting infection plus sigmoid perforation after colonoscopy. Patient has very poor prognosis. She is not a surgical candidate based on her presentation. Family had mentioned no surgical intervention either at this point. -abx -judicious fluid management -supportive measures 2. Metastatic cervical cancer, off treatment from [facility] since they deem it to be too dangerous for her as above. -onc following 3. Anemia, probably multifactorial with GI losses. Continue to monitor. 4. Significant hypoalbuminemia is multifactorial; however, she is not able to tolerate feeds at this time. 5. Probable hydronephrosis with obstruction. Currently with bilateral nephrostomy tubes. Continue tubes to drainage and monitor closely. 6. Electrolyte abnormalities. Please correct with judicious fluid management and replacement as needed. 7. Decubitus ulceration. Continue offloading, local care and eventually, if patient survives through this, nutritional optimization and vitamin replenishment. Thank you Problems: Subjective 24 Hr Interval Summary Off pressor. No f/c. No cough. No sz. No rash. No vomiting. Bloated. No bleeding. Leukocytosis. Exam/Review of Systems Vital Signs Vitals Vital Signs Date Time Temp Pulse Resp B/P Pulse Ox O2 Delivery O2 Flow Rate FiO2 09/13/16 23:00 87 17 116/79 100 Mechanical Ventilator 09/13/16 20:00 97.7 09/13/16 20:00 30 Intake and Output 09/12/16 09/12/16 09/13/16 15:00 23:00 07:00 Intake Total 1033.9146 ml 1147.024 ml 1157.284 ml Output Total 260 ml 245 ml Balance 1033.9146 ml 887.024 ml 912.284 ml Exam Free Text/Dictation GENERAL: Intubated, obese HEENT: Pupils are sluggish. No scleral icterus. Mucous membranes are moist. NECK: JVD. No crepitus. Trachea midline. PULMONARY: Minimally coarse. CARDIAC: S1, S2 and tachycardic. ABDOMEN: Distended and taut EXTREMITIES: Minimal edema. VASCULAR: Capillary refill is over 3 seconds. NEUROLOGIC: Not able to follow commands. LYMPHATICS: No inguinal lymphadenopathy. Results Result Diagram: 09/13/160 09/13/16 0430 DANIEL ALEXANDRE MD Sep 13, 2016 23:53
[2016-09-14] VITALS (68 sets, daily range): BP systolic 84–135; BP diastolic 52–87; PULSE 74–113; RESP 0–46
[2016-09-14] MEDS: SOD CHLORIDE 0.9% 1,000 ML IV SCH ×2 (01:00→21:07)
[2016-09-14] MEDS: INSULIN ASPART [NOVOLOG] 3 ML PEN SC SCH ×6 (01:00→21:00)
[2016-09-14] MEDS: PIPER-TAZO 2.25 GM (PMX) 50 ML IVPB SCH ×5 (01:01→23:31)
[2016-09-14] MEDS: FENTAnyl (DRIP) 1000 mcg/100mL 100 ML IV SCH ×3 (02:07→23:21)
[2016-09-14] MEDS: LORAZEPAM 2 MG INJ IV PRN ×3 (04:08→21:28)
[2016-09-14 05:19] LABS: ADD SCAN DIFF NO
[2016-09-14] MEDS: PANTOPRAZOLE 40 MG INJ IV SCH ×2 (05:21→18:32)
[2016-09-14] MEDS: HYDROCORTISONE 100 MG INJ IV SCH ×3 (05:21→22:21)
[2016-09-14] MEDS: metroNIDAZOLE 500 MG/NS (PMX) 100 ML IVPB SCH ×3 (05:22→22:21)
[2016-09-14 05:23] LABS: ABNORMAL IP MESSAGE 1; HEMATOCRIT 20.9 % (37.0-47.0); MEAN CORPUSCULAR HEMOGLOBIN 28.9 pg (29.0-33.0); MEAN CORPUSCULAR HGB CONC 32.1 g/dl (32.0-37.0); MEAN CORPUSCULAR VOLUME 90.1 fl (82.0-101.0); MEAN PLATELET VOLUME 14.4 fl (7.4-10.4); PLATELET COUNT 57 10^3/UL (140-415); RED BLOOD COUNT 2.32 10^6/ul (4.20-5.40); RED CELL DISTRIBUTION WIDTH 19.2 % (11.5-14.5); WHITE BLOOD COUNT 15.3 10^3/ul (4.8-10.8)
[2016-09-14] MEDS ORDERED: ALTEPLASE (CATHFLO) 2 MG INJ CATHETER PRN (05:30)
[2016-09-14 05:37] LABS: HEMOGLOBIN 6.7 g/dl (12.0-16.0)
[2016-09-14 05:40] LABS: MAGNESIUM 2.2 mg/dl (1.7-2.5); PHOSPHORUS 3.4 mg/dl (2.5-4.9)
[2016-09-14 05:41] LABS: ALBUMIN 1.9 g/dl (3.3-4.9); CALCIUM 7.4 mg/dl (8.4-10.2); CREATININE 1.06 mg/dl (0.44-1.00); PHOSPHORUS 3.4 mg/dl (2.5-4.9); POTASSIUM 3.7 mmol/L (3.5-5.1)
--- NOTE | 2016-09-14 06:33 | CONS ---
Date/Time of Note Date/Time of Note DATE: 09/14/16 TIME: 06:28 Consult Date/Type/Reason Admit Date/Time September 05, 2016 at 16:23 Initial Consult Date 09/06/16 Type of Consultation: neph Ordering Provider: ONEIDA COLEMAN The patient remains critically ill, on pressor support. No hemoptysis, hematemesis or hematochezia. The patient was initiated on TPN. Urinary output from bilateral nephrostomy tubes have been marginal. No other acute events noted. No hemoptysis, hematemesis or hematochezia. OBJECTIVE: HEENT: Head is normocephalic. NECK: Supple. HEART: Regular rate. LUNGS: Showed diminished breath sounds at the base. ABDOMEN: Soft, nontender to palpation. No rebound or guarding. EXTREMITIES: Negative for clubbing or cyanosis. Positive edema, +4. DERMATOLOGIC: No rashes. MUSCULOSKELETAL: Have no joint effusion. NEUROLOGIC: No change in exam. MEDICATIONS: The patient's medications have been reviewed. Objective Vital Signs Date Time Temp Pulse Resp B/P Pulse Ox O2 Delivery O2 Flow Rate FiO2 09/14/16 05:48 93 19 100 30 09/14/16 01:00 112/52 Mechanical Ventilator 09/14/16 00:00 97.4 Intake and Output 09/13/16 09/13/16 09/14/16 15:00 23:00 07:00 Intake Total 959.172 ml 775.408 ml 161.666 ml Output Total 100 ml 90 ml 100 ml Balance 859.172 ml 685.408 ml 61.666 ml Results/Medications Result Diagram: 09/14/16 0505 09/14/16 0505 Results 24 hrs Laboratory Tests Test 09/13/16 09:21 09/13/16 13:20 09/13/16 17:53 09/13/16 20:52 Bedside Glucose 159 149 143 135 Test 09/14/16 01:02 09/14/16 04:52 09/14/16 05:05 Bedside Glucose 133 123 White Blood Count 15.3 H Red Blood Count 2.32 L Hemoglobin 6.7 *L Hematocrit 20.9 L Mean Corpuscular Volume 90.1 Mean Corpuscular Hemoglobin 28.9 L Mean Corpuscular Hemoglobin Concent 32.1 Red Cell Distribution Width 19.2 H Platelet Count 57 L Mean Platelet Volume 14.4 H Neutrophils % Eosinophils % Neutrophils # Eosinophils # Sodium Level 131 L Potassium Level 3.7 Chloride Level 102 Carbon Dioxide Level 25 Anion Gap 8 Blood Urea Nitrogen 28 H Creatinine 1.06 H Glucose Level 106 Lactic Acid Level 1.9 Calcium Level 7.4 L Ionized Calcium (Measured) 1.1 Phosphorus Level 3.4 Magnesium Level 2.2 Albumin 1.9 L Medications Current Medications Acetaminophen (Tylenol Tab) 650 mg Q6H PRN PO PAIN LEVEL 1-3 OR FEVER; Start at 18:30 Morphine Sulfate (morphine) 2 mg Q4H PRN IV SEVERE PAIN LEVEL 7-10; Start 09/05 at 18:30 Docusate Sodium (Colace) 100 mg Q12H PRN PO CONSTIPATION; Start 09/05/16 at 18: 30 Magnesium Hydroxide (Milk Of Mag) 30 ml DAILY PRN PO CONSTIPATION; Start at 18:30 Sodium Biphosphate/ Sodium Phosphate 133 ml 133 ml DAILY PRN [place] CONSTIPATION; Start 09/05/16 at 18:30 Piperacillin Sod/ Tazobactam Sod (Zosyn 2.25gm/ 50ml (Pmx)) 50 ml @ 100 mls/hr Q6 IVPB Last administered on 09/14/16 05:20; Admin Dose 100 MLS/HR; Start 09/06 at 00:00 Vancomycin HCl (Vanco Iv Per Pharmacy) VANCOMYCIN PER PHARMACY NOTE XX ; Start 09/05/16 at 18:30 Hydralazine HCl (Apresoline) 10 mg Q6H PRN IV ELEVATED BLOOD PRESSURE; Start at 18:30 Nitroglycerin (Nitroglycerin (Sl Tab) 0.4 Mg) 1 tab Q5M PRN SL ANGINA; Start at 18:30 Insulin Aspart (Novolog Insulin Pen) NOVOLOG *MILD* ALGORI... Q4 SC Last administered on 09/13/16 17:56; Admin Dose 1 UNIT; Start 09/05/16 at 21:00 Miscellaneous Information 1 ea NOTE XX ; Start 09/05/16 at 19:00 Glucose (Glutose) 15 gm Q15M PRN PO DECREASED GLUCOSE; Start 09/05/16 at 19:00 Glucose (Glutose) 22.5 gm Q15M PRN PO DECREASED GLUCOSE; Start 09/05/16 at 19: 00 Dextrose (D50w Syringe) 25 ml Q15M PRN IV DECREASED GLUCOSE; Start 09/05/16 at 19:00 Dextrose (D50w Syringe) 50 ml Q15M PRN IV DECREASED GLUCOSE; Start 09/05/16 at 19:00 Glucagon (Glucagen) 1 mg Q15M PRN IM DECREASED GLUCOSE; Start 09/05/16 at 19:00 Glucose 15 gm 15 gm Q15M PRN BUCCAL DECREASED GLUCOSE; Start 09/05/16 at 19:00 Ondansetron HCl/ Sodium Chloride (Zofran Inj/NS) 54 ml @ 216 mls/hr Q6H PRN IV NAUSEA AND/OR VOMITING Last administered on 09/07/16 17:27; Admin Dose 216 MLS/HR; Start 09/06/16 at 10:30 Pantoprazole 40 mg 40 mg BID@06,18 IV Last administered on 09/14/16 05:21; Admin Dose 40 MG; Start 09/08/16 at 18:00 Metronidazole 100 ml @ 100 mls/hr Q8 IVPB Last administered on 09/14/16 05:22 ; Admin Dose 100 MLS/HR; Start 09/08/16 at 14:00 Fluconazole/ Sodium Chloride (Diflucan 100 Mg/ NS (Pmx)) 50 ml @ 50 mls/hr Q24H IVPB Last administered on 09/13/16 14:55; Admin Dose 50 MLS/HR; Start 09/09/16 at 14:30 Digoxin 125 mcg 125 mcg DAILY@13 IV Last administered on 09/13/16 13:30; Admin Dose 125 MCG; Start 09/10/16 at 13:00 Phenylephrine HCl/ Sodium Chloride (Julio-Syneph/NS) 500 ml @ 18.75 mls/ hr TITRATE IV ; Start 09/10/16 at 10:00 Miscellaneous Information PLEASE CHANGE ALL IVPB F... DAILY XX Last administered on 09/13/16 09:29; Admin Dose 1 EA; Start 09/10/16 at 08:30 Vasopressin 60 unit/Sodium Chloride 103 ml @ 0 mls/hr Q12H IVPB ; Start at 09:00; Status Future Hold Total Parenteral Nutrition 1,000 ml @ 40 mls/hr Q24H IV Last administered on 16:33; Admin Dose 40 MLS/HR; Start 09/11/16 at 16:00 Fat Emulsion Intravenous 500 ml @ 20.833 mls/ hr Q24H IV Last administered on 09/13/16 16:33; Admin Dose 20.833 MLS/HR; Start 09/11/16 at 16:00 Vancomycin HCl 100 ml @ 100 mls/hr Q24H IVPB Last administered on 09/13/16 20: 50; Admin Dose 100 MLS/HR; Start 09/11/16 at 20:00 Norepinephrine 16 mg/Sodium Chloride 500 ml @ 0 mls/hr TITRATE IV Last administered on 09/12/16 00:00; Admin Dose 15 MLS/HR; Start 09/11/16 at 20:31 Sodium Chloride 1,000 ml @ 50 mls/hr Q20H IV Last administered on 09/13/16 23: 13; Admin Dose 50 MLS/HR; Start 09/12/16 at 09:00 Fentanyl (Sublimaze) 100 ml @ 5 mls/hr TITRATE IV Last administered on 02:07; Admin Dose 5 MLS/HR; Start 09/13/16 at 07:45 Hydrocortisone (Solu-Cortef) 50 mg Q8 IV Last administered on 09/14/16 05:21; Admin Dose 50 MG; Start 09/13/16 at 14:00 Lorazepam (Ativan) 1 mg Q4 PRN IV ANXIETY; Start 09/14/16 at 06:30 Assessment/Plan Chief Complaint/Hosp Course 1. Acute hyponatremia. Etiology is unclear, likely multifactorial in conjunction with hypotonic fluid, sepsis, questionable SIADH. The patient's urine studies; however, were not consistent with SIADH, as urine sodium were remarkably low. However, there still does appear to be somewhat impairment in aquaresis. The patient's sodium levels have improved with free water restriction and removing hypotonic fluids. At this point, continue the current treatment plan, continue to monitor sodium levels closely. Will pharmacy re tpn prescription. 2. Hypokalemia. repleted. 3. Volume overload secondary capillary leak, third spacing and congestive heart failure. The patient remains on pressor support. advanced cardiomyopathy noted. 4. Bilateral nephrostomy tubes. Etiology is likely from hydronephrosis due to a history of cervical cancer. The patient's urinary output has been adequate and recent renal ultrasound shows no evidence of hydronephrosis. Continue to monitor. 5. Nonoliguric acute kidney injury. Etiology is likely secondary to hemodynamics, sepsis. Continue to monitor renal functions closely. Continue supportive care, renally dose meds, and avoid nephrotoxins. 6. Septic shock. Etiology is likely from perforated bowel. Continue the current antibiotic regimen. Continue pressor support and IV fluids. 7. Ventilatory-dependent respiratory failure. Vent settings have been reviewed. ABG has been reviewed. Continue to monitor. 8. Perforated bowel. Continue the current treatment plan. Patient was seen by general surgeon. No plan for intervention at this time. 9. Elevated troponin and [id number] myocardial infarction type 2. Continue medical management. 10. History of metastatic cervical cancer. Continue medical management. 11. History of cardiomyopathy, with an ejection fraction of 20%. Continue to monitor. Follow up with cardiology. Problems: ZANE HOLLINS MD Sep 14, 2016 06:33
[2016-09-14 07:09] LABS: EOSINOPHILS # 0.2 10^3/ul (0.0-0.5); LYMPHOCYTES # 0.3 10^3/ul (0.8-2.9); MONOCYTE # 0.2 10^3/ul (0.3-0.9); NEUTROPHIL # 14.2 10^3/ul (1.6-7.5); TOXIC GRANULATION FEW
[2016-09-14 07:10] LABS: ANISOCYTOSIS 1+; HYPOCHROMASIA 2+; POIKILOCYTOSIS 1+; SCHISTOCYTES FEW
[2016-09-14 07:11] LABS: OVALOCYTES FEW; POLYCHROMASIA FEW; STOMATOCYTES FEW
[2016-09-14 07:15] LABS: PLATELET ESTIMATE PLT APPEAR DECREASED
--- NOTE | 2016-09-14 08:31 | PN ---
Date/Time of Note Date/Time of Note DATE: 09/14/16 TIME: 08:27 Assessment/Plan VTE Prophylaxis VTE Prophylaxis Intervention: SCD's Lines/Catheters IV Catheter Type (from Nrs): PICC Line Central line still needed: Yes Urinary Cath still in place: No Assessment/Plan Assessment/Plan Worsening anemia/no overt GI bleeding Rule out intra-abdominal bleeding versus hemolysis versus GI bleeding with slow transit Post colonoscopy perforated viscus * Large pelvic mass invading colon wall site of perforation * Contrast leakage to pelvic area * ?Contained perforation as no evidence of generalized peritonitis Sepsis Metastatic cervical CA/Adrenal/brain History of cervical cancer S/P nephrostomy tube bilateral EF 20% Plan Transfuse to hemoglobin above 7.5 CT abdomen and pelvis Hemolysis workup Continue present supportive management Palliative following No GI interventions planned Further recommendations depend on clinical course Subjective 24 Hr Interval Summary Free Text/Dictation Course reviewed with nursing staff Patient condition remains basically unchanged except for Significant drop in hemoglobin and hematocrit, there is no overt GI bleeding Abdominal exam remains unchanged We will evaluate the possibility of intra-abdominal bleeding with CT We will also evaluate possibility of hemolysis We will continue to observe as upper GI bleeding may not be evident if source is duodenal Exam/Review of Systems Vital Signs Vitals Vital Signs Date Time Temp Pulse Resp B/P Pulse Ox O2 Delivery O2 Flow Rate FiO2 09/14/16 07:00 101 28 125/79 100 Mechanical Ventilator 09/14/16 05:48 30 09/14/16 04:00 97.4 Intake and Output 09/13/16 09/13/16 09/14/16 15:00 23:00 07:00 Intake Total 959.172 ml 775.408 ml 645.831 ml Output Total 100 ml 90 ml 180 ml Balance 859.172 ml 685.408 ml 465.831 ml Exam Constitutional: other (Intubated, sedated) Head: normocephalic Neck: supple, No masses Respiratory: clear to auscultation, diminished breath sounds Cardiovascular: regular rate and rhythm, No murmurs/extra sounds Gastrointestinal: bowel sounds, distended, mass (Suprapubic area fullness), soft (Upper abdomen with fullness in the lower abdomen), No ascites, No rebound or guarding, No tender (Patient is sedated) Musculoskeletal: nl extremities to inspection Skin: nl turgor, No rash or lesions Lymph: nl lymph nodes Results Result Diagram: 6/4/17 0505 09/14/16 0505 Results 24 hrs Laboratory Tests Test 09/13/16 09:21 09/13/16 13:20 09/13/16 17:53 09/13/16 20:52 Bedside Glucose 159 149 143 135 Test 09/14/16 01:02 09/14/16 04:52 09/14/16 05:05 Bedside Glucose 133 123 White Blood Count 15.3 H Red Blood Count 2.32 L Hemoglobin 6.7 *L Hematocrit 20.9 L Mean Corpuscular Volume 90.1 Mean Corpuscular Hemoglobin 28.9 L Mean Corpuscular Hemoglobin Concent 32.1 Red Cell Distribution Width 19.2 H Platelet Count 57 L Mean Platelet Volume 14.4 H Neutrophils % 93.0 H Band Neutrophils % 3.0 Lymphocytes % 2.0 L Monocytes % 1.0 Eosinophils % 1.0 Nucleated Red Blood Cells % 7.0 H Neutrophils # 14.2 H Lymphocytes # 0.3 L Monocytes # 0.2 L Eosinophils # 0.2 Toxic Granulation FEW Platelet Estimate PLT APPEAR DECREASED Large Platelets MODERATE Giant Platelets FEW Polychromasia FEW Hypochromasia 2+ Poikilocytosis 1+ Basophilic Stippling FEW Anisocytosis 1+ Ovalocytes FEW Stomatocytes FEW Schistocytes FEW Sodium Level 131 L Potassium Level 3.7 Chloride Level 102 Carbon Dioxide Level 25 Anion Gap 8 Blood Urea Nitrogen 28 H Creatinine 1.06 H Glucose Level 106 Lactic Acid Level 1.9 Calcium Level 7.4 L Ionized Calcium (Measured) 1.1 Phosphorus Level 3.4 Magnesium Level 2.2 Albumin 1.9 L Medications Medications Current Medications Acetaminophen (Tylenol Tab) 650 mg Q6H PRN PO PAIN LEVEL 1-3 OR FEVER; Start at 18:30 Morphine Sulfate (morphine) 2 mg Q4H PRN IV SEVERE PAIN LEVEL 7-10; Start 09/05 at 18:30 Docusate Sodium (Colace) 100 mg Q12H PRN PO CONSTIPATION; Start 09/05/16 at 18: 30 Magnesium Hydroxide (Milk Of Mag) 30 ml DAILY PRN PO CONSTIPATION; Start at 18:30 Sodium Biphosphate/ Sodium Phosphate 133 ml 133 ml DAILY PRN [place] CONSTIPATION; Start 09/05/16 at 18:30 Piperacillin Sod/ Tazobactam Sod (Zosyn 2.25gm/ 50ml (Pmx)) 50 ml @ 100 mls/hr Q6 IVPB Last administered on 09/14/16 05:20; Admin Dose 100 MLS/HR; Start 09/06 at 00:00 Vancomycin HCl (Vanco Iv Per Pharmacy) VANCOMYCIN PER PHARMACY NOTE XX ; Start 09/05/16 at 18:30 Hydralazine HCl (Apresoline) 10 mg Q6H PRN IV ELEVATED BLOOD PRESSURE; Start at 18:30 Nitroglycerin (Nitroglycerin (Sl Tab) 0.4 Mg) 1 tab Q5M PRN SL ANGINA; Start at 18:30 Insulin Aspart (Novolog Insulin Pen) NOVOLOG *MILD* ALGORI... Q4 SC Last administered on 09/13/16 17:56; Admin Dose 1 UNIT; Start 09/05/16 at 21:00 Miscellaneous Information 1 ea NOTE XX ; Start 09/05/16 at 19:00 Glucose (Glutose) 15 gm Q15M PRN PO DECREASED GLUCOSE; Start 09/05/16 at 19:00 Glucose (Glutose) 22.5 gm Q15M PRN PO DECREASED GLUCOSE; Start 09/05/16 at 19: 00 Dextrose (D50w Syringe) 25 ml Q15M PRN IV DECREASED GLUCOSE; Start 09/05/16 at 19:00 Dextrose (D50w Syringe) 50 ml Q15M PRN IV DECREASED GLUCOSE; Start 09/05/16 at 19:00 Glucagon (Glucagen) 1 mg Q15M PRN IM DECREASED GLUCOSE; Start 09/05/16 at 19:00 Glucose 15 gm 15 gm Q15M PRN BUCCAL DECREASED GLUCOSE; Start 09/05/16 at 19:00 Ondansetron HCl/ Sodium Chloride (Zofran Inj/NS) 54 ml @ 216 mls/hr Q6H PRN IV NAUSEA AND/OR VOMITING Last administered on 09/07/16 17:27; Admin Dose 216 MLS/HR; Start 09/06/16 at 10:30 Pantoprazole 40 mg 40 mg BID@06,18 IV Last administered on 09/14/16 05:21; Admin Dose 40 MG; Start 09/08/16 at 18:00 Metronidazole 100 ml @ 100 mls/hr Q8 IVPB Last administered on 09/14/16 05:22 ; Admin Dose 100 MLS/HR; Start 09/08/16 at 14:00 Fluconazole/ Sodium Chloride (Diflucan 100 Mg/ NS (Pmx)) 50 ml @ 50 mls/hr Q24H IVPB Last administered on 09/13/16 14:55; Admin Dose 50 MLS/HR; Start 09/09/16 at 14:30 Digoxin 125 mcg 125 mcg DAILY@13 IV Last administered on 09/13/16 13:30; Admin Dose 125 MCG; Start 09/10/16 at 13:00 Phenylephrine HCl/ Sodium Chloride (Julio-Syneph/NS) 500 ml @ 18.75 mls/ hr TITRATE IV ; Start 09/10/16 at 10:00 Miscellaneous Information PLEASE CHANGE ALL IVPB F... DAILY XX Last administered on 09/13/16 09:29; Admin Dose 1 EA; Start 09/10/16 at 08:30 Vasopressin 60 unit/Sodium Chloride 103 ml @ 0 mls/hr Q12H IVPB ; Start at 09:00; Status Future Hold Total Parenteral Nutrition 1,000 ml @ 40 mls/hr Q24H IV Last administered on 16:33; Admin Dose 40 MLS/HR; Start 09/11/16 at 16:00 Fat Emulsion Intravenous 500 ml @ 20.833 mls/ hr Q24H IV Last administered on 09/13/16 16:33; Admin Dose 20.833 MLS/HR; Start 09/11/16 at 16:00 Vancomycin HCl 100 ml @ 100 mls/hr Q24H IVPB Last administered on 09/13/16 20: 50; Admin Dose 100 MLS/HR; Start 09/11/16 at 20:00 Norepinephrine 16 mg/Sodium Chloride 500 ml @ 0 mls/hr TITRATE IV Last administered on 09/12/16 00:00; Admin Dose 15 MLS/HR; Start 09/11/16 at 20:31 Sodium Chloride 1,000 ml @ 50 mls/hr Q20H IV Last administered on 09/13/16 23: 13; Admin Dose 50 MLS/HR; Start 09/12/16 at 09:00 Fentanyl (Sublimaze) 100 ml @ 5 mls/hr TITRATE IV Last administered on 02:07; Admin Dose 5 MLS/HR; Start 09/13/16 at 07:45 Hydrocortisone (Solu-Cortef) 50 mg Q8 IV Last administered on 09/14/16 05:21; Admin Dose 50 MG; Start 09/13/16 at 14:00 Lorazepam (Ativan) 1 mg Q4 PRN IV ANXIETY; Start 09/14/16 at 06:30 SAKSHI MENA MD Sep 14, 2016 08:31
[2016-09-14] MEDS ORDERED: SOD CHLORIDE 0.9% 100 ML ONE (08:55)
[2016-09-14] MEDS ORDERED: IODIXANOL LOCM 100 ML BTL ONE (08:55)
[2016-09-14] MEDS ORDERED: IOHEXOL 14.3 MG(I)/ML (ADULT) BTL PO ONE (09:00)
[2016-09-14] MEDS: [UNRECOGNIZED DRUG - REMARK] XX SCH (09:00)
--- NOTE | 2016-09-14 09:53 | RADRPT ---
Addendum created at 09/14/2016 1:22:36 PM: Pelvic mass measures approximately 15.1 x 9.4 x 17.2 cm, previously measuring 14.7 x 9.6 x 17 cm on 09/08/2016. Addendum by: Anirudh Gordon PROCEDURE: CT Abdomen and Pelvis with contrast. CLINICAL INDICATION: Abdominal pain. TECHNIQUE: Routine abdominopelvic CT was performed following administration of intravenous contras t and reformatted in the axial, coronal, sagittal planes. Intravenous contrast: 100 cc of Visipaque 320 Radiation dose: CTDIvol (mGy) = 23; total DLP (mGy-cm) = 1387. One or more of the following radiation dose techniques were used: -Automated exposure control. -Adjust of the mA and/or kV according to patient size. -Use of iterative reconstruction technique. COMPARISON: CT, 09/08/2016. FINDINGS: There are centrilobular nodules identified at the lung bases without focal consolidation or pleural effusions. There are diffuse steatotic changes in the liver. Gallbladder is surgically absent. There is no bi liary dilatation. There is a indeterminate left adrenal nodule, measuring up to 2.4 cm. Right adrenal gland is normal . There are multiple low-density rounded lymph nodes identified in the amrik hepatis and peripancreati c region. There is also a conglomerate retroperitoneal lymphadenopathy. Bilateral nephrostomy tubes are in place. There is no hydronephrosis. There are dilated loops of small bowel without evidence of a discrete transition point to suggest duong wel obstruction. There is a large pelvic mass occupying the pelvis. There is trace free air identified in the pelvis . There is a stent extending from the IVC into the left femoral vein. An IVC filter is in place. There is diffuse anasarca. Enteric tube is in place. IMPRESSION: No radiologic evidence of hemoperitoneum/intra-abdominal bleed, as clinically queried. Decreased pn eumoperitoneum identified in the pelvis. No radiologic evidence of active enteric or intravenous co ntrast extravasation. Large pelvic mass essentially occupying the entire pelvis with suspected left adrenal and retroperit vazquez/upper abdominal renu metastasis. Bilateral nephrostomy tubes in place without pneumothorax. Interval resolution of previously identified bilateral pleural effusions. There are diffuse centril obular nodules identified at the lung bases reflecting aspiration and/or infectious bronchiolitis. RPTAT: EE .Anirudh Gordon MD, MD Date Time Electronically viewed and signed by .Anirudh Gordon MD, MD on 09/14/2016 13:27 .C/
[2016-09-14] MEDS ORDERED: NORepinephrine 8MG/250 ML (PMX 250 ML IV SCH (10:00)
--- NOTE | 2016-09-14 10:25 | RADRPT ---
PROCEDURE: XR Chest. CLINICAL INDICATION: Respiratory failure TECHNIQUE: Single frontal chest x-ray. COMPARISON: 09/13/2016 FINDINGS: Endotracheal tube, left arm PICC line, right-sided Port-A-Cath in place unchanged. Multiple wires o verlie the chest limiting evaluation. . There are low lung volumes present. No alveolar infiltrate s, edema, or effusions.. The cardiomediastinal silhouette is unremarkable. The osseous structures a re intact. IMPRESSION: No acute cardiopulmonary disease. Tubes and lines unchanged. Low lung volumes. RPTAT: QQ .Oswald Middleton MD, MD Date Time Electronically viewed and signed by .Oswald Middleton MD, MD on 09/14/2016 10:25 .L/
[2016-09-14] MEDS ORDERED: MIDAZOLAM (DRIP) 50 mg/50 mL 50 ML IV SCH (10:30)
--- NOTE | 2016-09-14 10:34 | PN ---
Date/Time of Note Date/Time of Note DATE: 09/14/16 TIME: 10:31 Assessment/Plan VTE Prophylaxis VTE Prophylaxis Intervention: SCD's Lines/Catheters IV Catheter Type (from [facility]): PICC Line Central line still needed: Yes Urinary Cath still in place: No Assessment/Plan Assessment/Plan This is a 61-year-old female who came in with weakness and low blood pressure with a history of metastatic cervical cancer on radiation therapy now managed as follows: 1. Severe systemic systemic inflammatory response syndrome with shock in patient with known metastatic cancer likely due to sepsis 2. Post colonoscopy perforated viscus: improved * Large pelvic mass invading colon wall site of perforation * Contrast leakage to pelvic area: not seen on last CT * ?Contained perforation as no evidence of generalized peritonitis 3. 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 Chronic ureteral obstruction from #3 s/p nephrostomy tube bilateral 5. Severe cardiomyopathy with EF 20% thought to be likely ischemic 6. Occult GI bleed secondary to metastatic mass 7. Recurrent anemia requiring transfusion secondary to the above 8. Acute respiratory failure secondary to profound septic shock 9. Underlying abdominal ileus secondary to an obstructing sigmoid colon mass with patient now on TPN 10. Severe LE edema and anasarca 2/2 mass effect PLAN: Continue intensive care unit monitoring. Transfuse for hgb 6.8 Continue to wean pressors to keep systolic blood pressure above 90 Continue vent management and weaning Serial lab monitoring and electrolyte replacement Started on steroids per pulmonary Continue digoxin per cardiology Continue empiric broad-spectrum antibiotics for sepsis in an immunosuppressed patient with unclear source Definitely not a candidate for any form of cancer therapy at this point Claim Analyst management and recommendations is appreciated Deep venous thrombosis prophylaxis. Bilateral sequential compression devices. Gastrointestinal prophylaxis. Proton pump inhibitors. Extremely poor prognosis. Critical CARE time: 45 minutes Subjective 24 Hr Interval Summary Free Text/Dictation Patient seen and examined. Intubated with pressor support. Spoke extensively with patient's family regarding her dire prognosis and overall condition, this discussion lasted more than half an hour, family however still want everything done. Exam/Review of Systems Vital Signs Vitals Vital Signs Date Time Temp Pulse Resp B/P Pulse Ox O2 Delivery O2 Flow Rate FiO2 09/14/16 08:12 111 09/14/16 07:00 28 125/79 100 Mechanical Ventilator 09/14/16 05:48 30 6/4/17 04:00 97.4 Intake and Output 09/13/16 09/13/16 09/14/16 15:00 23:00 07:00 Intake Total 959.172 ml 775.408 ml 645.831 ml Output Total 100 ml 90 ml 180 ml Balance 859.172 ml 685.408 ml 465.831 ml Exam General: The patient is well-developed, Not in acute distress. HEENT: Atraumatic, normocephalic. The pupils are equal and round . NG tube in place to suction, intubated Neck: Supple Chest: Normal expansion of the thorax during inspiration Lungs: Clear to auscultation bilaterally Heart: Normal S1-S2, Regular rhythm and rate. Abdomen: Soft , nontender, nondistended , bowel sounds are present. Extremities: edema 3-4+ with anasarca in abd and lower extremities Neurologic:The patient is awake, alert / follows commands Results Result Diagram: 09/14/16 0505 09/14/16 0505 Results 24 hrs Laboratory Tests Test 09/13/16 13:20 09/13/16 17:53 09/13/16 20:52 09/14/16 01:02 Bedside Glucose 149 143 135 133 Test 09/14/16 04:52 09/14/16 05:05 Bedside Glucose 123 White Blood Count 15.3 H Red Blood Count 2.32 L Hemoglobin 6.7 *L Hematocrit 20.9 L Mean Corpuscular Volume 90.1 Mean Corpuscular Hemoglobin 28.9 L Mean Corpuscular Hemoglobin Concent 32.1 Red Cell Distribution Width 19.2 H Platelet Count 57 L Mean Platelet Volume 14.4 H Neutrophils % 93.0 H Band Neutrophils % 3.0 Lymphocytes % 2.0 L Monocytes % 1.0 Eosinophils % 1.0 Nucleated Red Blood Cells % 7.0 H Neutrophils # 14.2 H Lymphocytes # 0.3 L Monocytes # 0.2 L Eosinophils # 0.2 Toxic Granulation FEW Platelet Estimate PLT APPEAR DECREASED Large Platelets MODERATE Giant Platelets FEW Polychromasia FEW Hypochromasia 2+ Poikilocytosis 1+ Basophilic Stippling FEW Anisocytosis 1+ Ovalocytes FEW Stomatocytes FEW Schistocytes FEW Sodium Level 131 L Potassium Level 3.7 Chloride Level 102 Carbon Dioxide Level 25 Anion Gap 8 Blood Urea Nitrogen 28 H Creatinine 1.06 H Glucose Level 106 Lactic Acid Level 1.9 Calcium Level 7.4 L Ionized Calcium (Measured) 1.1 Phosphorus Level 3.4 Magnesium Level 2.2 Albumin 1.9 L Medications Medications Current Medications Acetaminophen (Tylenol Tab) 650 mg Q6H PRN PO PAIN LEVEL 1-3 OR FEVER; Start at 18:30 Morphine Sulfate (morphine) 2 mg Q4H PRN IV SEVERE PAIN LEVEL 7-10; Start 09/05 at 18:30 Docusate Sodium (Colace) 100 mg Q12H PRN PO CONSTIPATION; Start 09/05/16 at 18: 30 Magnesium Hydroxide (Milk Of Mag) 30 ml DAILY PRN PO CONSTIPATION; Start at 18:30 Sodium Biphosphate/ Sodium Phosphate 133 ml 133 ml DAILY PRN [place] CONSTIPATION; Start 09/05/16 at 18:30 Piperacillin Sod/ Tazobactam Sod (Zosyn 2.25gm/ 50ml (Pmx)) 50 ml @ 100 mls/hr Q6 IVPB Last administered on 09/14/16 05:20; Admin Dose 100 MLS/HR; Start 09/06 at 00:00 Vancomycin HCl (Vanco Iv Per Pharmacy) VANCOMYCIN PER PHARMACY NOTE XX ; Start 09/05/16 at 18:30 Hydralazine HCl (Apresoline) 10 mg Q6H PRN IV ELEVATED BLOOD PRESSURE; Start at 18:30 Nitroglycerin (Nitroglycerin (Sl Tab) 0.4 Mg) 1 tab Q5M PRN SL ANGINA; Start at 18:30 Insulin Aspart (Novolog Insulin Pen) NOVOLOG *MILD* ALGORI... Q4 SC Last administered on 09/13/16 17:56; Admin Dose 1 UNIT; Start 09/05/16 at 21:00 Miscellaneous Information 1 ea NOTE XX ; Start 09/05/16 at 19:00 Glucose (Glutose) 15 gm Q15M PRN PO DECREASED GLUCOSE; Start 09/05/16 at 19:00 Glucose (Glutose) 22.5 gm Q15M PRN PO DECREASED GLUCOSE; Start 09/05/16 at 19: 00 Dextrose (D50w Syringe) 25 ml Q15M PRN IV DECREASED GLUCOSE; Start 09/05/16 at 19:00 Dextrose (D50w Syringe) 50 ml Q15M PRN IV DECREASED GLUCOSE; Start 09/05/16 at 19:00 Glucagon (Glucagen) 1 mg Q15M PRN IM DECREASED GLUCOSE; Start 09/05/16 at 19:00 Glucose 15 gm 15 gm Q15M PRN BUCCAL DECREASED GLUCOSE; Start 09/05/16 at 19:00 Ondansetron HCl/ Sodium Chloride (Zofran Inj/NS) 54 ml @ 216 mls/hr Q6H PRN IV NAUSEA AND/OR VOMITING Last administered on 09/07/16 17:27; Admin Dose 216 MLS/HR; Start 09/06/16 at 10:30 Pantoprazole 40 mg 40 mg BID@06,18 IV Last administered on 09/14/16 05:21; Admin Dose 40 MG; Start 09/08/16 at 18:00 Metronidazole 100 ml @ 100 mls/hr Q8 IVPB Last administered on 09/14/16 05:22 ; Admin Dose 100 MLS/HR; Start 09/08/16 at 14:00 Fluconazole/ Sodium Chloride (Diflucan 100 Mg/ NS (Pmx)) 50 ml @ 50 mls/hr Q24H IVPB Last administered on 09/13/16 14:55; Admin Dose 50 MLS/HR; Start 09/09/16 at 14:30 Digoxin 125 mcg 125 mcg DAILY@13 IV Last administered on 09/13/16 13:30; Admin Dose 125 MCG; Start 09/10/16 at 13:00 Phenylephrine HCl/ Sodium Chloride (Julio-Syneph/NS) 500 ml @ 18.75 mls/ hr TITRATE IV ; Start 09/10/16 at 10:00 Miscellaneous Information PLEASE CHANGE ALL IVPB F... DAILY XX Last administered on 09/13/16 09:29; Admin Dose 1 EA; Start 09/10/16 at 08:30 Vasopressin 60 unit/Sodium Chloride 103 ml @ 0 mls/hr Q12H IVPB ; Start at 09:00; Status Future Hold Total Parenteral Nutrition 1,000 ml @ 40 mls/hr Q24H IV Last administered on 16:33; Admin Dose 40 MLS/HR; Start 09/11/16 at 16:00 Fat Emulsion Intravenous 500 ml @ 20.833 mls/ hr Q24H IV Last administered on 09/13/16 16:33; Admin Dose 20.833 MLS/HR; Start 09/11/16 at 16:00 Vancomycin HCl 100 ml @ 100 mls/hr Q24H IVPB Last administered on 09/13/16 20: 50; Admin Dose 100 MLS/HR; Start 09/11/16 at 20:00 Norepinephrine 16 mg/Sodium Chloride 500 ml @ 0 mls/hr TITRATE IV Last administered on 09/12/16 00:00; Admin Dose 15 MLS/HR; Start 09/11/16 at 20:31 Sodium Chloride 1,000 ml @ 50 mls/hr Q20H IV Last administered on 09/13/16 23: 13; Admin Dose 50 MLS/HR; Start 09/12/16 at 09:00 Fentanyl (Sublimaze) 100 ml @ 5 mls/hr TITRATE IV Last administered on 02:07; Admin Dose 5 MLS/HR; Start 09/13/16 at 07:45 Hydrocortisone (Solu-Cortef) 50 mg Q8 IV Last administered on 09/14/16 05:21; Admin Dose 50 MG; Start 09/13/16 at 14:00 Lorazepam 1 mg 1 mg Q4 PRN IV ANXIETY Last administered on 09/14/16 08:58; Admin Dose 1 MG; Start 09/14/16 at 06:30 Norepinephrine 250 ml @ 1.875 mls/ hr TITRATE IV Last administered on 09:44; Admin Dose 3.75 MLS/HR; Start 09/14/16 at 10:00; Stop 09/14/16 at 16: 00 Midazolam HCl (Versed) 50 ml @ 1 mls/hr TITRATE IV ; Start 09/14/16 at 10:30 BREN FISCHER Sep 14, 2016 10:34
--- NOTE | 2016-09-14 11:03 | CONS ---
Date/Time of Note Date/Time of Note DATE: 09/14/16 TIME: 10:59 Assessment/Plan Assessment/Plan Additional Assessment/Plan Ventilator setting; AC of 16, tidal volume 400, PEEP of 5, 30% FiO2. Patient currently on TPN, fentanyl drip at 100 mics per hour. Assessment recommendations; 1. Patient admitted for severe sepsis due to bowel perforation leading to respiratory failure. 2. Hypotension with interval improvement. Patient off pressor support. 3. Widely metastatic cervical cancer. Extensive abdominal pathology as well as brain metastasis. 4. Anemia. 5. History of bilateral nephrostomy tube placement. 6. Thrombocytopenia. Without any overt bleeding. 7. Hyponatremia with slow interval improvement. 8. Hypotension. 9. Severe sepsis. Continue current treatment. Patient will be transfused blood. I did have a very detailed discussion the patient's son at bedside apprised him of his mother 's extremely poor overall prognosis. Her DNR status also discussed however the son wants to wait for his sister to arrive before the family can decide about further plan of care. Prognosis is dismal. 35 minutes of critical care time was spent evaluating the patient. Consultation Date/Type/Reason Admit Date/Time September 05, 2016 at 16:23 Initial Consult Date 09/06/16 Type of Consultation: Pulmonary/critical care Referring Provider: ONEIDA COLEMAN 24 HR Interval Summary Free Text/Dictation Patient condition remains critical. Still requiring full ventilator support. Patient however has been off pressor support. General exam; elderly woman, orally intubated, sedated. Currently no distress. Exam/Review of Systems Vital Signs Vitals Vital Signs Date Time Temp Pulse Resp B/P Pulse Ox O2 Delivery O2 Flow Rate FiO2 09/14/16 08:12 111 09/14/16 07:00 28 125/79 100 Mechanical Ventilator 09/14/16 05:48 30 09/14/16 04:00 97.4 Intake and Output 09/13/16 09/13/16 09/14/16 15:00 23:00 07:00 Intake Total 959.172 ml 775.408 ml 645.831 ml Output Total 100 ml 90 ml 180 ml Balance 859.172 ml 685.408 ml 465.831 ml Exam HEENT exam; supple neck, no JVD. No lymphadenopathy. Midline trachea. No thyromegaly. Patient bilateral cataracts. Dentition is fair. No lymphadenopathy. Chest exam is; clear to ulceration. S1-S2 audible, no murmurs. Tachycardic. Abdomen exam; is grossly distended. Bowel sounds are absent. There is a well- healed laparotomy scar. Extremity exam; patient has massive anasarca. 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 Results Result Diagram: 09/14/16 0505 09/14/16 0505 Results 24 hrs Laboratory Tests Test 09/13/16 13:20 09/13/16 17:53 09/13/16 20:52 09/14/16 01:02 Bedside Glucose 149 143 135 133 Test 09/14/16 04:52 09/14/16 05:05 Bedside Glucose 123 White Blood Count 15.3 H Red Blood Count 2.32 L Hemoglobin 6.7 *L Hematocrit 20.9 L Mean Corpuscular Volume 90.1 Mean Corpuscular Hemoglobin 28.9 L Mean Corpuscular Hemoglobin Concent 32.1 Red Cell Distribution Width 19.2 H Platelet Count 57 L Mean Platelet Volume 14.4 H Neutrophils % 93.0 H Band Neutrophils % 3.0 Lymphocytes % 2.0 L Monocytes % 1.0 Eosinophils % 1.0 Nucleated Red Blood Cells % 7.0 H Neutrophils # 14.2 H Lymphocytes # 0.3 L Monocytes # 0.2 L Eosinophils # 0.2 Toxic Granulation FEW Platelet Estimate PLT APPEAR DECREASED Large Platelets MODERATE Giant Platelets FEW Polychromasia FEW Hypochromasia 2+ Poikilocytosis 1+ Basophilic Stippling FEW Anisocytosis 1+ Ovalocytes FEW Stomatocytes FEW Schistocytes FEW Sodium Level 131 L Potassium Level 3.7 Chloride Level 102 Carbon Dioxide Level 25 Anion Gap 8 Blood Urea Nitrogen 28 H Creatinine 1.06 H Glucose Level 106 Lactic Acid Level 1.9 Calcium Level 7.4 L Ionized Calcium (Measured) 1.1 Phosphorus Level 3.4 Magnesium Level 2.2 Albumin 1.9 L Medications Medications Current Medications Acetaminophen (Tylenol Tab) 650 mg Q6H PRN PO PAIN LEVEL 1-3 OR FEVER; Start at 18:30 Morphine Sulfate (morphine) 2 mg Q4H PRN IV SEVERE PAIN LEVEL 7-10; Start 09/05 at 18:30 Docusate Sodium (Colace) 100 mg Q12H PRN PO CONSTIPATION; Start 09/05/16 at 18: 30 Magnesium Hydroxide (Milk Of Mag) 30 ml DAILY PRN PO CONSTIPATION; Start at 18:30 Sodium Biphosphate/ Sodium Phosphate 133 ml 133 ml DAILY PRN [place] CONSTIPATION; Start 09/05/16 at 18:30 Piperacillin Sod/ Tazobactam Sod (Zosyn 2.25gm/ 50ml (Pmx)) 50 ml @ 100 mls/hr Q6 IVPB Last administered on 09/14/16 05:20; Admin Dose 100 MLS/HR; Start 09/06 at 00:00 Vancomycin HCl (Vanco Iv Per Pharmacy) VANCOMYCIN PER PHARMACY NOTE XX ; Start 09/05/16 at 18:30 Hydralazine HCl (Apresoline) 10 mg Q6H PRN IV ELEVATED BLOOD PRESSURE; Start at 18:30 Nitroglycerin (Nitroglycerin (Sl Tab) 0.4 Mg) 1 tab Q5M PRN SL ANGINA; Start at 18:30 Insulin Aspart (Novolog Insulin Pen) NOVOLOG *MILD* ALGORI... Q4 SC Last administered on 09/13/16 17:56; Admin Dose 1 UNIT; Start 09/05/16 at 21:00 Miscellaneous Information 1 ea NOTE XX ; Start 09/05/16 at 19:00 Glucose (Glutose) 15 gm Q15M PRN PO DECREASED GLUCOSE; Start 09/05/16 at 19:00 Glucose (Glutose) 22.5 gm Q15M PRN PO DECREASED GLUCOSE; Start 09/05/16 at 19: 00 Dextrose (D50w Syringe) 25 ml Q15M PRN IV DECREASED GLUCOSE; Start 09/05/16 at 19:00 Dextrose (D50w Syringe) 50 ml Q15M PRN IV DECREASED GLUCOSE; Start 09/05/16 at 19:00 Glucagon (Glucagen) 1 mg Q15M PRN IM DECREASED GLUCOSE; Start 09/05/16 at 19:00 Glucose 15 gm 15 gm Q15M PRN BUCCAL DECREASED GLUCOSE; Start 09/05/16 at 19:00 Ondansetron HCl/ Sodium Chloride (Zofran Inj/NS) 54 ml @ 216 mls/hr Q6H PRN IV NAUSEA AND/OR VOMITING Last administered on 09/07/16 17:27; Admin Dose 216 MLS/HR; Start 09/06/16 at 10:30 Pantoprazole 40 mg 40 mg BID@06,18 IV Last administered on 09/14/16 05:21; Admin Dose 40 MG; Start 09/08/16 at 18:00 Metronidazole 100 ml @ 100 mls/hr Q8 IVPB Last administered on 09/14/16 05:22 ; Admin Dose 100 MLS/HR; Start 09/08/16 at 14:00 Fluconazole/ Sodium Chloride (Diflucan 100 Mg/ NS (Pmx)) 50 ml @ 50 mls/hr Q24H IVPB Last administered on 09/13/16 14:55; Admin Dose 50 MLS/HR; Start 09/09/16 at 14:30 Digoxin 125 mcg 125 mcg DAILY@13 IV Last administered on 09/13/16 13:30; Admin Dose 125 MCG; Start 09/10/16 at 13:00 Phenylephrine HCl/ Sodium Chloride (Julio-Syneph/NS) 500 ml @ 18.75 mls/ hr TITRATE IV ; Start 09/10/16 at 10:00 Miscellaneous Information PLEASE CHANGE ALL IVPB F... DAILY XX Last administered on 09/13/16 09:29; Admin Dose 1 EA; Start 09/10/16 at 08:30 Vasopressin 60 unit/Sodium Chloride 103 ml @ 0 mls/hr Q12H IVPB ; Start at 09:00; Status Future Hold Total Parenteral Nutrition 1,000 ml @ 40 mls/hr Q24H IV Last administered on 16:33; Admin Dose 40 MLS/HR; Start 09/11/16 at 16:00 Fat Emulsion Intravenous 500 ml @ 20.833 mls/ hr Q24H IV Last administered on 09/13/16 16:33; Admin Dose 20.833 MLS/HR; Start 09/11/16 at 16:00 Vancomycin HCl 100 ml @ 100 mls/hr Q24H IVPB Last administered on 09/13/16 20: 50; Admin Dose 100 MLS/HR; Start 09/11/16 at 20:00 Norepinephrine 16 mg/Sodium Chloride 500 ml @ 0 mls/hr TITRATE IV Last administered on 09/12/16 00:00; Admin Dose 15 MLS/HR; Start 09/11/16 at 20:31 Sodium Chloride 1,000 ml @ 50 mls/hr Q20H IV Last administered on 09/13/16 23: 13; Admin Dose 50 MLS/HR; Start 09/12/16 at 09:00 Fentanyl (Sublimaze) 100 ml @ 5 mls/hr TITRATE IV Last administered on 02:07; Admin Dose 5 MLS/HR; Start 09/13/16 at 07:45 Hydrocortisone (Solu-Cortef) 50 mg Q8 IV Last administered on 09/14/16 05:21; Admin Dose 50 MG; Start 09/13/16 at 14:00 Lorazepam 1 mg 1 mg Q4 PRN IV ANXIETY Last administered on 09/14/16 08:58; Admin Dose 1 MG; Start 09/14/16 at 06:30 Norepinephrine 250 ml @ 1.875 mls/ hr TITRATE IV Last administered on 09:44; Admin Dose 3.75 MLS/HR; Start 09/14/16 at 10:00; Stop 09/14/16 at 16: 00 Midazolam HCl (Versed) 50 ml @ 1 mls/hr TITRATE IV ; Start 09/14/16 at 10:30 SKYLER ESTEVES Sep 14, 2016 11:03
--- NOTE | 2016-09-14 13:03 | CONS ---
Date/Time of Note Date/Time of Note DATE: 09/14/16 TIME: 12:56 Assessment/Plan Assessment/Plan Chief Complaint/Hosp Course 61 yo with metastatic cervical cancer s/p chemotherapy , immunotherapy and radiation. Pt has not had chemotherapy or immunotherapy in over a year. 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 It seems that the [facility] oncologist does believe this patient is a candidate for more therapy at this time. Pt underwent a colonoscopy and suffered from a perforated sigmoid colon. She is currently in septic shock and is requiring pressor support. #Metastatic Cervical Cancer -at this time, patient has an extremely poor functional status and is in a critical state in the ICU. There is no oncologic treatment that can be given at this time while she is critically ill. -family still wants patient to be full code -continue critical care supportive care. Pt now back on Levophed 2 mcg. -CT A/P 09/14/16 showed no radiologic evidence of hemoperitoneum/intra-abdominal bleed, as clinically queried. Decreased pneumoperitoneum identified in the pelvis. 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 -extremely poor overall prognosis. Her DNR status also discussed by primary team however the son wants to wait for his sister to arrive before the family can decide about further plan of care. #Perforated Sigmoid colon -pt currently not a surgical candidate currently given her current critical condition functional status -surgery is following #Brain Mets -per the son, pt was told that she was not a candidate for post op brain radiation. #Sepsis - lactate> 5. this is likely secondary to the urosepsis as well as sigmoid bowel perforation -continue broad spectrum antibiotics -cont pressor support # Anemia - secondary to metastatic disease and possible GI blood loss. -continue to monitor Hg. If it drops below 8 will consider transfusion. Hgb has dropped to 6.7 today, will receive 2 units pRBCs. Problems: Consultation Date/Type/Reason Admit Date/Time September 05, 2016 at 16:23 Initial Consult Date 09/06/16 Type of Consultation: Oncology Referring Provider: ONEIDA COLEMAN 24 HR Interval Summary Free Text/Dictation Patient has increased respiratory rate, decreased mental status, and is back on levophed 2 mcg per nursing. Will receive 2 units pRBCs for Hgb 6.7. Exam/Review of Systems Vital Signs Vitals Vital Signs Date Time Temp Pulse Resp B/P Pulse Ox O2 Delivery O2 Flow Rate FiO2 09/14/16 08:12 111 09/14/16 07:00 28 125/79 100 Mechanical Ventilator 09/14/16 05:48 30 09/14/16 04:00 97.4 Intake and Output 09/13/16 09/13/16 09/14/16 15:00 23:00 07:00 Intake Total 959.172 ml 775.408 ml 645.831 ml Output Total 100 ml 90 ml 180 ml Balance 859.172 ml 685.408 ml 465.831 ml Exam Constitutional: alert Head: normocephalic ENMT: intubated Neck: non-tender, supple Respiratory: clear to auscultation Cardiovascular: regular rate and rhythm Gastrointestinal: soft Musculoskeletal: +edema Results Result Diagram: 09/14/16 0505 09/14/16 0505 Results 24 hrs Laboratory Tests Test 09/13/16 13:20 09/13/16 17:53 09/13/16 20:52 09/14/16 01:02 Bedside Glucose 149 143 135 133 Test 09/14/16 04:52 09/14/16 05:05 Bedside Glucose 123 White Blood Count 15.3 H Red Blood Count 2.32 L Hemoglobin 6.7 *L Hematocrit 20.9 L Mean Corpuscular Volume 90.1 Mean Corpuscular Hemoglobin 28.9 L Mean Corpuscular Hemoglobin Concent 32.1 Red Cell Distribution Width 19.2 H Platelet Count 57 L Mean Platelet Volume 14.4 H Neutrophils % 93.0 H Band Neutrophils % 3.0 Lymphocytes % 2.0 L Monocytes % 1.0 Eosinophils % 1.0 Nucleated Red Blood Cells % 7.0 H Neutrophils # 14.2 H Lymphocytes # 0.3 L Monocytes # 0.2 L Eosinophils # 0.2 Toxic Granulation FEW Platelet Estimate PLT APPEAR DECREASED Large Platelets MODERATE Giant Platelets FEW Polychromasia FEW Hypochromasia 2+ Poikilocytosis 1+ Basophilic Stippling FEW Anisocytosis 1+ Ovalocytes FEW Stomatocytes FEW Schistocytes FEW Sodium Level 131 L Potassium Level 3.7 Chloride Level 102 Carbon Dioxide Level 25 Anion Gap 8 Blood Urea Nitrogen 28 H Creatinine 1.06 H Glucose Level 106 Lactic Acid Level 1.9 Calcium Level 7.4 L Ionized Calcium (Measured) 1.1 Phosphorus Level 3.4 Magnesium Level 2.2 Albumin 1.9 L Medications Medications Current Medications Acetaminophen (Tylenol Tab) 650 mg Q6H PRN PO PAIN LEVEL 1-3 OR FEVER; Start at 18:30 Morphine Sulfate (morphine) 2 mg Q4H PRN IV SEVERE PAIN LEVEL 7-10; Start 09/05 at 18:30 Docusate Sodium (Colace) 100 mg Q12H PRN PO CONSTIPATION; Start 09/05/16 at 18: 30 Magnesium Hydroxide (Milk Of Mag) 30 ml DAILY PRN PO CONSTIPATION; Start at 18:30 Sodium Biphosphate/ Sodium Phosphate 133 ml 133 ml DAILY PRN [place] CONSTIPATION; Start 09/05/16 at 18:30 Piperacillin Sod/ Tazobactam Sod (Zosyn 2.25gm/ 50ml (Pmx)) 50 ml @ 100 mls/hr Q6 IVPB Last administered on 09/14/16 05:20; Admin Dose 100 MLS/HR; Start 09/06 at 00:00 Vancomycin HCl (Vanco Iv Per Pharmacy) VANCOMYCIN PER PHARMACY NOTE XX ; Start 09/05/16 at 18:30 Hydralazine HCl (Apresoline) 10 mg Q6H PRN IV ELEVATED BLOOD PRESSURE; Start at 18:30 Nitroglycerin (Nitroglycerin (Sl Tab) 0.4 Mg) 1 tab Q5M PRN SL ANGINA; Start at 18:30 Insulin Aspart (Novolog Insulin Pen) NOVOLOG *MILD* ALGORI... Q4 SC Last administered on 09/13/16 17:56; Admin Dose 1 UNIT; Start 09/05/16 at 21:00 Miscellaneous Information 1 ea NOTE XX ; Start 09/05/16 at 19:00 Glucose (Glutose) 15 gm Q15M PRN PO DECREASED GLUCOSE; Start 09/05/16 at 19:00 Glucose (Glutose) 22.5 gm Q15M PRN PO DECREASED GLUCOSE; Start 09/05/16 at 19: 00 Dextrose (D50w Syringe) 25 ml Q15M PRN IV DECREASED GLUCOSE; Start 09/05/16 at 19:00 Dextrose (D50w Syringe) 50 ml Q15M PRN IV DECREASED GLUCOSE; Start 09/05/16 at 19:00 Glucagon (Glucagen) 1 mg Q15M PRN IM DECREASED GLUCOSE; Start 09/05/16 at 19:00 Glucose 15 gm 15 gm Q15M PRN BUCCAL DECREASED GLUCOSE; Start 09/05/16 at 19:00 Ondansetron HCl/ Sodium Chloride (Zofran Inj/NS) 54 ml @ 216 mls/hr Q6H PRN IV NAUSEA AND/OR VOMITING Last administered on 09/07/16 17:27; Admin Dose 216 MLS/HR; Start 09/06/16 at 10:30 Pantoprazole 40 mg 40 mg BID@06,18 IV Last administered on 09/14/16 05:21; Admin Dose 40 MG; Start 09/08/16 at 18:00 Metronidazole 100 ml @ 100 mls/hr Q8 IVPB Last administered on 09/14/16 05:22 ; Admin Dose 100 MLS/HR; Start 09/08/16 at 14:00 Fluconazole/ Sodium Chloride (Diflucan 100 Mg/ NS (Pmx)) 50 ml @ 50 mls/hr Q24H IVPB Last administered on 09/13/16 14:55; Admin Dose 50 MLS/HR; Start 09/09/16 at 14:30 Digoxin 125 mcg 125 mcg DAILY@13 IV Last administered on 09/13/16 13:30; Admin Dose 125 MCG; Start 09/10/16 at 13:00 Phenylephrine HCl/ Sodium Chloride (Julio-Syneph/NS) 500 ml @ 18.75 mls/ hr TITRATE IV ; Start 09/10/16 at 10:00 Miscellaneous Information PLEASE CHANGE ALL IVPB F... DAILY XX Last administered on 09/13/16 09:29; Admin Dose 1 EA; Start 09/10/16 at 08:30 Vasopressin 60 unit/Sodium Chloride 103 ml @ 0 mls/hr Q12H IVPB ; Start at 09:00; Status Future Hold Total Parenteral Nutrition 1,000 ml @ 40 mls/hr Q24H IV Last administered on 16:33; Admin Dose 40 MLS/HR; Start 09/11/16 at 16:00 Fat Emulsion Intravenous 500 ml @ 20.833 mls/ hr Q24H IV Last administered on 09/13/16 16:33; Admin Dose 20.833 MLS/HR; Start 09/11/16 at 16:00 Vancomycin HCl 100 ml @ 100 mls/hr Q24H IVPB Last administered on 09/13/16 20: 50; Admin Dose 100 MLS/HR; Start 09/11/16 at 20:00 Norepinephrine 16 mg/Sodium Chloride 500 ml @ 0 mls/hr TITRATE IV Last administered on 09/12/16 00:00; Admin Dose 15 MLS/HR; Start 09/11/16 at 20:31 Sodium Chloride 1,000 ml @ 50 mls/hr Q20H IV Last administered on 09/13/16 23: 13; Admin Dose 50 MLS/HR; Start 09/12/16 at 09:00 Fentanyl (Sublimaze) 100 ml @ 5 mls/hr TITRATE IV Last administered on 02:07; Admin Dose 5 MLS/HR; Start 09/13/16 at 07:45 Hydrocortisone (Solu-Cortef) 50 mg Q8 IV Last administered on 09/14/16 05:21; Admin Dose 50 MG; Start 09/13/16 at 14:00 Lorazepam 1 mg 1 mg Q4 PRN IV ANXIETY Last administered on 09/14/16 08:58; Admin Dose 1 MG; Start 09/14/16 at 06:30 Norepinephrine 250 ml @ 1.875 mls/ hr TITRATE IV Last administered on 09:44; Admin Dose 3.75 MLS/HR; Start 09/14/16 at 10:00; Stop 09/14/16 at 16: 00 Midazolam HCl (Versed) 50 ml @ 1 mls/hr TITRATE IV ; Start 09/14/16 at 10:30 FAMILIA RESTREPO MD Sep 14, 2016 13:03
--- NOTE | 2016-09-14 14:01 | PN ---
Date/Time of Note Date/Time of Note DATE: 09/14/16 TIME: 13:54 Assessment/Plan Lines/Catheters IV Catheter Type (from [facility]): PICC Line Fleming in Place (from [facility]): No Assessment/Plan Chief Complaint/Hosp Course 1. Septic shock, multifactorial due to presenting infection plus sigmoid perforation after colonoscopy. Contained. CT noted. Improving. -abx -judicious fluid management -supportive measures 2. Metastatic cervical cancer, off treatment from [facility] since they deem it to be too dangerous for her as above. -onc following 3. Anemia, worsening. ? source. CT noted. -tx prn 4. Significant hypoalbuminemia is multifactorial; however, she is not able to tolerate feeds at this time. 5. Probable hydronephrosis with obstruction. Currently with bilateral nephrostomy tubes. Continue tubes to drainage and monitor closely. 6. Electrolyte abnormalities. Please correct with judicious fluid management and replacement as needed. 7. Decubitus ulceration. Continue offloading, local care and eventually, if patient survives through this, nutritional optimization and vitamin replenishment. Thank you Problems: Subjective 24 Hr Interval Summary Drop Hg. CT noted. No evidence of external bleeding. No f/c. No cough. No sz. No rash. No vomiting. Bloated. Leukocytosis. Exam/Review of Systems Vital Signs Vitals Vital Signs Date Time Temp Pulse Resp B/P Pulse Ox O2 Delivery O2 Flow Rate FiO2 09/14/16 12:10 90 09/14/16 07:00 28 125/79 100 Mechanical Ventilator 09/14/16 05:48 30 09/14/16 04:00 97.4 Intake and Output 09/13/16 09/13/16 09/14/16 15:00 23:00 07:00 Intake Total 959.172 ml 775.408 ml 645.831 ml Output Total 100 ml 90 ml 180 ml Balance 859.172 ml 685.408 ml 465.831 ml Exam Free Text/Dictation GENERAL: Intubated, obese HEENT: Pupils are sluggish. No scleral icterus. Mucous membranes are moist. NECK: JVD. No crepitus. Trachea midline. PULMONARY: Minimally coarse. CARDIAC: S1, S2 and tachycardic. ABDOMEN: Distended and taut EXTREMITIES: Minimal edema. VASCULAR: Capillary refill is over 3 seconds. NEUROLOGIC: Not able to follow commands. LYMPHATICS: No inguinal lymphadenopathy. Results Free Text/Dictation CT: No radiologic evidence of hemoperitoneum/intra-abdominal bleed, as clinically queried. Decreased pneumoperitoneum identified in the pelvis. No radiologic evidence of active enteric or intravenous contrast extravasation. 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 Bilateral nephrostomy tubes in place without pneumothorax. Interval resolution of previously identified bilateral pleural effusions. There are diffuse centrilobular nodules identified at the lung bases reflecting aspiration and/or infectious bronchiolitis. Result Diagram: 09/14/16 0505 09/14/16 0505 DANIEL ALEXANDRE MD Sep 14, 2016 14:01
--- NOTE | 2016-09-14 14:11 | CONS ---
Date/Time of Note Date/Time of Note DATE: 09/14/16 TIME: 14:09 Assessment/Plan Assessment/Plan Additional Assessment/Plan Severe shock requiring IV pressor Acute blood loss anemia Acute decompensated systolic congestive heart failure Cardiomyopathy with ejection fraction 20% Pelvic cancer -Patient undergoing blood transfusion and hopefully this will improve blood pressure. Continue titrating IV pressor to maintain SBP greater than 90. No aspirin at the current time given severe anemia, no beta-chance or JB inhibitor given hypotension. Consider diuresis once patient off IV pressors and blood pressure remained stable. Dr Monique to resume care 09/15/2016 Consultation Date/Type/Reason Admit Date/Time September 05, 2016 at 16:23 Initial Consult Date 09/06/16 Type of Consultation: cv Referring Provider: ONEIDA COLEMAN 24 HR Interval Summary Free Text/Dictation Patient seen and examined. As per nursing staff, IV pressor requirements are decreasing. Patient anemic and undergoing blood transfusion Exam/Review of Systems Vital Signs Vitals Vital Signs Date Time Temp Pulse Resp B/P Pulse Ox O2 Delivery O2 Flow Rate FiO2 09/14/16 12:10 90 09/14/16 07:00 28 125/79 100 Mechanical Ventilator 09/14/16 05:48 30 09/14/16 04:00 97.4 Intake and Output 09/13/16 09/13/16 09/14/16 15:00 23:00 07:00 Intake Total 959.172 ml 775.408 ml 645.831 ml Output Total 100 ml 90 ml 180 ml Balance 859.172 ml 685.408 ml 465.831 ml Exam Sedated and intubated, no apparent distress Head: normocephalic ENMT: intubated Respiratory: other (Coarse breath sounds bilaterally, no wheezing) Cardiovascular: other (S1-S2 heard), regular rate and rhythm Gastrointestinal: bowel sounds, non-tender, soft Extremities: edema Results Result Diagram: 09/14/16 0505 09/14/16 0505 Results 24 hrs Laboratory Tests Test 09/13/16 17:53 09/13/16 20:52 09/14/16 01:02 09/14/16 04:52 Bedside Glucose 143 135 133 123 Test 09/14/16 05:05 09/14/16 13:01 09/14/16 13:15 09/14/16 13:24 White Blood Count 15.3 H Red Blood Count 2.32 L Hemoglobin 6.7 *L Hematocrit 20.9 L Mean Corpuscular Volume 90.1 Mean Corpuscular Hemoglobin 28.9 L Mean Corpuscular Hemoglobin Concent 32.1 Red Cell Distribution Width 19.2 H Platelet Count 57 L Mean Platelet Volume 14.4 H Neutrophils % 93.0 H Band Neutrophils % 3.0 Lymphocytes % 2.0 L Monocytes % 1.0 Eosinophils % 1.0 Nucleated Red Blood Cells % 7.0 H Neutrophils # 14.2 H Lymphocytes # 0.3 L Monocytes # 0.2 L Eosinophils # 0.2 Toxic Granulation FEW Platelet Estimate PLT APPEAR DECREASED Large Platelets MODERATE Giant Platelets FEW Polychromasia FEW Hypochromasia 2+ Poikilocytosis 1+ Basophilic Stippling FEW Anisocytosis 1+ Ovalocytes FEW Stomatocytes FEW Schistocytes FEW Sodium Level 131 L Potassium Level 3.7 Chloride Level 102 Carbon Dioxide Level 25 Anion Gap 8 Blood Urea Nitrogen 28 H Creatinine 1.06 H Glucose Level 106 Lactic Acid Level 1.9 Calcium Level 7.4 L Ionized Calcium (Measured) 1.1 Phosphorus Level 3.4 Magnesium Level 2.2 Albumin 1.9 L Lab Scanned Report REFERENCE LAB REFERENCE LAB Bedside Glucose 118 Medications Medications Current Medications Acetaminophen (Tylenol Tab) 650 mg Q6H PRN PO PAIN LEVEL 1-3 OR FEVER; Start at 18:30 Morphine Sulfate (morphine) 2 mg Q4H PRN IV SEVERE PAIN LEVEL 7-10; Start 09/05 at 18:30 Docusate Sodium (Colace) 100 mg Q12H PRN PO CONSTIPATION; Start 09/05/16 at 18: 30 Magnesium Hydroxide (Milk Of Mag) 30 ml DAILY PRN PO CONSTIPATION; Start at 18:30 Sodium Biphosphate/ Sodium Phosphate 133 ml 133 ml DAILY PRN SD CONSTIPATION; Start 09/05/16 at 18:30 Piperacillin Sod/ Tazobactam Sod (Zosyn 2.25gm/ 50ml (Pmx)) 50 ml @ 100 mls/hr Q6 IVPB Last administered on 09/14/16t 05:20; Admin Dose 100 MLS/HR; Start 09/06 at 00:00 Vancomycin HCl (Vanco Iv Per Pharmacy) VANCOMYCIN PER PHARMACY NOTE XX ; Start 09/05/16 at 18:30 Hydralazine HCl (Apresoline) 10 mg Q6H PRN IV ELEVATED BLOOD PRESSURE; Start at 18:30 Nitroglycerin (Nitroglycerin (Sl Tab) 0.4 Mg) 1 tab Q5M PRN SL ANGINA; Start at 18:30 Insulin Aspart (Novolog Insulin Pen) NOVOLOG *MILD* ALGORI... Q4 SC Last administered on 09/13/16 17:56; Admin Dose 1 UNIT; Start 09/05/16 at 21:00 Miscellaneous Information 1 ea NOTE XX ; Start 09/05/16 at 19:00 Glucose (Glutose) 15 gm Q15M PRN PO DECREASED GLUCOSE; Start 09/05/16 at 19:00 Glucose (Glutose) 22.5 gm Q15M PRN PO DECREASED GLUCOSE; Start 09/05/16 at 19: 00 Dextrose (D50w Syringe) 25 ml Q15M PRN IV DECREASED GLUCOSE; Start 09/05/16 at 19:00 Dextrose (D50w Syringe) 50 ml Q15M PRN IV DECREASED GLUCOSE; Start 09/05/16 at 19:00 Glucagon (Glucagen) 1 mg Q15M PRN IM DECREASED GLUCOSE; Start 09/05/16 at 19:00 Glucose 15 gm 15 gm Q15M PRN BUCCAL DECREASED GLUCOSE; Start 09/05/16 at 19:00 Ondansetron HCl/ Sodium Chloride (Zofran Inj/NS) 54 ml @ 216 mls/hr Q6H PRN IV NAUSEA AND/OR VOMITING Last administered on 09/07/16 17:27; Admin Dose 216 MLS/HR; Start 09/06/16 at 10:30 Pantoprazole 40 mg 40 mg BID@06,18 IV Last administered on 09/14/16 05:21; Admin Dose 40 MG; Start 09/08/16 at 18:00 Metronidazole 100 ml @ 100 mls/hr Q8 IVPB Last administered on 09/14/16 05:22 ; Admin Dose 100 MLS/HR; Start 09/08/16 at 14:00 Fluconazole/ Sodium Chloride (Diflucan 100 Mg/ NS (Pmx)) 50 ml @ 50 mls/hr Q24H IVPB Last administered on 09/13/16 14:55; Admin Dose 50 MLS/HR; Start 09/09/16 at 14:30 Digoxin 125 mcg 125 mcg DAILY@13 IV Last administered on 09/13/16 13:30; Admin Dose 125 MCG; Start 09/10/16 at 13:00 Phenylephrine HCl/ Sodium Chloride (Julio-Syneph/NS) 500 ml @ 18.75 mls/ hr TITRATE IV ; Start 09/10/16 at 10:00 Miscellaneous Information PLEASE CHANGE ALL IVPB F... DAILY XX Last administered on 09/14/16 09:00; Admin Dose 1 EA; Start 09/10/16 at 08:30 Vasopressin 60 unit/Sodium Chloride 103 ml @ 0 mls/hr Q12H IVPB ; Start at 09:00; Status Future Hold Total Parenteral Nutrition 1,000 ml @ 40 mls/hr Q24H IV Last administered on 16:33; Admin Dose 40 MLS/HR; Start 09/11/16 at 16:00 Fat Emulsion Intravenous 500 ml @ 20.833 mls/ hr Q24H IV Last administered on 09/13/16 16:33; Admin Dose 20.833 MLS/HR; Start 09/11/16 at 16:00 Vancomycin HCl 100 ml @ 100 mls/hr Q24H IVPB Last administered on 09/13/16 20: 50; Admin Dose 100 MLS/HR; Start 09/11/16 at 20:00 Norepinephrine 16 mg/Sodium Chloride 500 ml @ 0 mls/hr TITRATE IV Last administered on 09/12/16 00:00; Admin Dose 15 MLS/HR; Start 09/11/16 at 20:31 Sodium Chloride 1,000 ml @ 50 mls/hr Q20H IV Last administered on 09/13/16 23: 13; Admin Dose 50 MLS/HR; Start 09/12/16 at 09:00 Fentanyl (Sublimaze) 100 ml @ 5 mls/hr TITRATE IV Last administered on 13:16; Admin Dose 10 MLS/HR; Start 09/13/16 at 07:45 Hydrocortisone (Solu-Cortef) 50 mg Q8 IV Last administered on 09/14/16 05:21; Admin Dose 50 MG; Start 09/13/16 at 14:00 Lorazepam 1 mg 1 mg Q4 PRN IV ANXIETY Last administered on 09/14/16 08:58; Admin Dose 1 MG; Start 09/14/16 at 06:30 Norepinephrine 250 ml @ 1.875 mls/ hr TITRATE IV Last administered on 09:44; Admin Dose 3.75 MLS/HR; Start 09/14/16 at 10:00; Stop 09/14/16 at 16: 00 Midazolam HCl (Versed) 50 ml @ 1 mls/hr TITRATE IV ; Start 09/14/16 at 10:30 Will Mcfarlane DO Sep 14, 2016 14:11
[2016-09-14] MEDS: DIGOXIN 500 MCG INJ IV SCH (14:14)
--- NOTE | 2016-09-14 14:22 | CONS ---
Date/Time of Note Date/Time of Note DATE: 09/14/16 TIME: 14:20 Assessment/Plan Assessment/Plan Chief Complaint/Hosp Course SUBJECTIVE: No events overnight. On Levophed gtt at 2 mcg/min, looks comfortable on vent INDWELLINGS: Endotracheal tube, NG tube, PICC line, placed 09/11/2016, right chest Port-A-Cath, B nephrostomies. ANTIMICROBIALS: The patient is on: 1. IV vancomycin. 2. Fluconazole. 4. Flagyl. 5. Zosyn. 6. She is also on Solu-Cortef. PHYSICAL EXAMINATION: GENERAL: Chronically ill-appearing, elderly woman, in no distress. HEENT: Head atraumatic, normocephalic. Sclerae anicteric. Buccal mucosa dry. NECK: Supple, trachea midline. CHEST: Chest rise is symmetrical. Breath sounds diminished to the bases. HEART: S1, S2. ABDOMEN: Soft, bowel tones present. Abdomen distended. Bowel tones hypoactive. EXTREMITIES: With bilateral edema. ASSESSMENT: 1. Sepsis with shock and multisystem organ failure. 2. Large pelvic mass/ metastatic cervical cancer 3. Proximal sigmoid colon obstruction with perforation. 4. Urinary tract infection, per urinalysis. 5. Acute renal and respiratory failure. PLAN: Remains on Levophed, continue broad-spectrum antibiotics, prognosis is poor. Pt is not a surgical candidate. DW staff Problems: Consultation Date/Type/Reason Admit Date/Time September 05, 2016 at 16:23 Initial Consult Date 09/06/16 Type of Consultation: id Referring Provider: ONEIDA COLEMAN Exam/Review of Systems Vital Signs Vitals Vital Signs Date Time Temp Pulse Resp B/P Pulse Ox O2 Delivery O2 Flow Rate FiO2 09/14/16 12:10 90 09/14/16 07:00 28 125/79 100 Mechanical Ventilator 09/14/16 05:48 30 09/14/16 04:00 97.4 Intake and Output 09/13/16 09/13/16 09/14/16 15:00 23:00 07:00 Intake Total 959.172 ml 775.408 ml 645.831 ml Output Total 100 ml 90 ml 180 ml Balance 859.172 ml 685.408 ml 465.831 ml Results Result Diagram: 09/14/16 0505 09/14/16 0505 Results 24 hrs Laboratory Tests Test 09/13/16 17:53 09/13/16 20:52 09/14/16 01:02 09/14/16 04:52 Bedside Glucose 143 135 133 123 Test 09/14/16 05:05 09/14/16 13:01 09/14/16 13:15 09/14/16 13:24 White Blood Count 15.3 H Red Blood Count 2.32 L Hemoglobin 6.7 *L Hematocrit 20.9 L Mean Corpuscular Volume 90.1 Mean Corpuscular Hemoglobin 28.9 L Mean Corpuscular Hemoglobin Concent 32.1 Red Cell Distribution Width 19.2 H Platelet Count 57 L Mean Platelet Volume 14.4 H Neutrophils % 93.0 H Band Neutrophils % 3.0 Lymphocytes % 2.0 L Monocytes % 1.0 Eosinophils % 1.0 Nucleated Red Blood Cells % 7.0 H Neutrophils # 14.2 H Lymphocytes # 0.3 L Monocytes # 0.2 L Eosinophils # 0.2 Toxic Granulation FEW Platelet Estimate PLT APPEAR DECREASED Large Platelets MODERATE Giant Platelets FEW Polychromasia FEW Hypochromasia 2+ Poikilocytosis 1+ Basophilic Stippling FEW Anisocytosis 1+ Ovalocytes FEW Stomatocytes FEW Schistocytes FEW Sodium Level 131 L Potassium Level 3.7 Chloride Level 102 Carbon Dioxide Level 25 Anion Gap 8 Blood Urea Nitrogen 28 H Creatinine 1.06 H Glucose Level 106 Lactic Acid Level 1.9 Calcium Level 7.4 L Ionized Calcium (Measured) 1.1 Phosphorus Level 3.4 Magnesium Level 2.2 Albumin 1.9 L Lab Scanned Report REFERENCE LAB REFERENCE LAB Bedside Glucose 118 Medications Medications Current Medications Acetaminophen (Tylenol Tab) 650 mg Q6H PRN PO PAIN LEVEL 1-3 OR FEVER; Start at 18:30 Morphine Sulfate (morphine) 2 mg Q4H PRN IV SEVERE PAIN LEVEL 7-10; Start 09/05 at 18:30 Docusate Sodium (Colace) 100 mg Q12H PRN PO CONSTIPATION; Start 09/05/16 at 18: 30 Magnesium Hydroxide (Milk Of Mag) 30 ml DAILY PRN PO CONSTIPATION; Start at 18:30 Sodium Biphosphate/ Sodium Phosphate 133 ml 133 ml DAILY PRN [place] CONSTIPATION; Start 09/05/16 at 18:30 Piperacillin Sod/ Tazobactam Sod (Zosyn 2.25gm/ 50ml (Pmx)) 50 ml @ 100 mls/hr Q6 IVPB Last administered on 09/14/16 05:20; Admin Dose 100 MLS/HR; Start 09/06 at 00:00 Vancomycin HCl (Vanco Iv Per Pharmacy) VANCOMYCIN PER PHARMACY NOTE XX ; Start 09/05/16 at 18:30 Hydralazine HCl (Apresoline) 10 mg Q6H PRN IV ELEVATED BLOOD PRESSURE; Start at 18:30 Nitroglycerin (Nitroglycerin (Sl Tab) 0.4 Mg) 1 tab Q5M PRN SL ANGINA; Start at 18:30 Insulin Aspart (Novolog Insulin Pen) NOVOLOG *MILD* ALGORI... Q4 SC Last administered on 09/13/16 17:56; Admin Dose 1 UNIT; Start 09/05/16 at 21:00 Miscellaneous Information 1 ea NOTE XX ; Start 09/05/16 at 19:00 Glucose (Glutose) 15 gm Q15M PRN PO DECREASED GLUCOSE; Start 09/05/16 at 19:00 Glucose (Glutose) 22.5 gm Q15M PRN PO DECREASED GLUCOSE; Start 09/05/16 at 19: 00 Dextrose (D50w Syringe) 25 ml Q15M PRN IV DECREASED GLUCOSE; Start 09/05/16 at 19:00 Dextrose (D50w Syringe) 50 ml Q15M PRN IV DECREASED GLUCOSE; Start 09/05/16 at 19:00 Glucagon (Glucagen) 1 mg Q15M PRN IM DECREASED GLUCOSE; Start 09/05/16 at 19:00 Glucose 15 gm 15 gm Q15M PRN BUCCAL DECREASED GLUCOSE; Start 09/05/16 at 19:00 Ondansetron HCl/ Sodium Chloride (Zofran Inj/NS) 54 ml @ 216 mls/hr Q6H PRN IV NAUSEA AND/OR VOMITING Last administered on 09/07/16 17:27; Admin Dose 216 MLS/HR; Start 09/06/16 at 10:30 Pantoprazole 40 mg 40 mg BID@06,18 IV Last administered on 09/14/16 05:21; Admin Dose 40 MG; Start 09/08/16 at 18:00 Metronidazole 100 ml @ 100 mls/hr Q8 IVPB Last administered on 09/14/16 14:14 ; Admin Dose 100 MLS/HR; Start 09/08/16 at 14:00 Fluconazole/ Sodium Chloride (Diflucan 100 Mg/ NS (Pmx)) 50 ml @ 50 mls/hr Q24H IVPB Last administered on 09/13/16 14:55; Admin Dose 50 MLS/HR; Start 09/09/16 at 14:30 Digoxin 125 mcg 125 mcg DAILY@13 IV Last administered on 09/14/16 14:14; Admin Dose 125 MCG; Start 09/10/16 at 13:00 Phenylephrine HCl/ Sodium Chloride (Julio-Syneph/NS) 500 ml @ 18.75 mls/ hr TITRATE IV ; Start 09/10/16 at 10:00 Miscellaneous Information PLEASE CHANGE ALL IVPB F... DAILY XX Last administered on 09/14/16 09:00; Admin Dose 1 EA; Start 09/10/16 at 08:30 Vasopressin 60 unit/Sodium Chloride 103 ml @ 0 mls/hr Q12H IVPB ; Start at 09:00; Status Future Hold Total Parenteral Nutrition 1,000 ml @ 40 mls/hr Q24H IV Last administered on 16:33; Admin Dose 40 MLS/HR; Start 09/11/16 at 16:00 Fat Emulsion Intravenous 500 ml @ 20.833 mls/ hr Q24H IV Last administered on 09/13/16 16:33; Admin Dose 20.833 MLS/HR; Start 09/11/16 at 16:00 Vancomycin HCl 100 ml @ 100 mls/hr Q24H IVPB Last administered on 09/13/16 20: 50; Admin Dose 100 MLS/HR; Start 09/11/16 at 20:00 Norepinephrine 16 mg/Sodium Chloride 500 ml @ 0 mls/hr TITRATE IV Last administered on 09/12/16 00:00; Admin Dose 15 MLS/HR; Start 09/11/16 at 20:31 Sodium Chloride 1,000 ml @ 50 mls/hr Q20H IV Last administered on 09/13/16 23: 13; Admin Dose 50 MLS/HR; Start 09/12/16 at 09:00 Fentanyl (Sublimaze) 100 ml @ 5 mls/hr TITRATE IV Last administered on 13:16; Admin Dose 10 MLS/HR; Start 09/13/16 at 07:45 Hydrocortisone (Solu-Cortef) 50 mg Q8 IV Last administered on 09/14/16 14:14; Admin Dose 50 MG; Start 09/13/16 at 14:00 Lorazepam 1 mg 1 mg Q4 PRN IV ANXIETY Last administered on 09/14/16 08:58; Admin Dose 1 MG; Start 09/14/16 at 06:30 Norepinephrine 250 ml @ 1.875 mls/ hr TITRATE IV Last administered on 09:44; Admin Dose 3.75 MLS/HR; Start 09/14/16 at 10:00; Stop 09/14/16 at 16: 00 Midazolam HCl (Versed) 50 ml @ 1 mls/hr TITRATE IV ; Start 09/14/16 at 10:30 BIN MITTAL NP Sep 14, 2016 14:22
[2016-09-14] MEDS: FLUCONAZOLE 100 MG/NS (PMX) 50 ML IVPB SCH (16:42)
[2016-09-14] MEDS: TPN 1,000 ML IV SCH (16:43)
[2016-09-14] MEDS: FAT EMULSION 20% 500 ML IV SCH (16:43)
[2016-09-14] MEDS: VANCOMYCIN 500MG/NS (PMX) 100 ML IVPB SCH (20:14)
[2016-09-15] VITALS (65 sets, daily range): BP systolic 83–147; BP diastolic 59–113; PULSE 84–125; RESP 11–34
[2016-09-15] MEDS: INSULIN ASPART [NOVOLOG] 3 ML PEN SC SCH ×5 (01:00→17:00)
[2016-09-15] MEDS: metroNIDAZOLE 500 MG/NS (PMX) 100 ML IVPB SCH ×3 (05:24→21:21)
[2016-09-15] MEDS: PIPER-TAZO 2.25 GM (PMX) 50 ML IVPB SCH ×3 (05:24→17:27)
[2016-09-15] MEDS: HYDROCORTISONE 100 MG INJ IV SCH ×3 (05:24→21:21)
[2016-09-15] MEDS: PANTOPRAZOLE 40 MG INJ IV SCH ×2 (05:24→17:27)
[2016-09-15 06:12] LABS: ADD SCAN DIFF NO
[2016-09-15 06:13] LABS: BASOPHILS % 0.3 % (0.0-2.0); MONOCYTE # 0.4 10^3/ul (0.3-0.9)
[2016-09-15 06:49] LABS: ALBUMIN 3.4 g/dl (3.3-4.9); CREATININE 1.08 mg/dl (0.44-1.00); POTASSIUM 3.6 mmol/L (3.5-5.1)
[2016-09-15] MEDS: FENTAnyl (DRIP) 1000 mcg/100mL 100 ML IV SCH ×2 (08:43→18:00)
[2016-09-15] MEDS: [UNRECOGNIZED DRUG - REMARK] XX SCH (08:50)
[2016-09-15 09:17] LABS: CALCIUM 7.9 mg/dl (8.4-10.2); CREATININE 0.95 mg/dl (0.44-1.00); POTASSIUM 3.6 mmol/L (3.5-5.1)
[2016-09-15 09:19] LABS: HEMATOCRIT 32.3 % (37.0-47.0); HEMOGLOBIN 10.9 g/dl (12.0-16.0); MEAN CORPUSCULAR HEMOGLOBIN 29.1 pg (29.0-33.0); MEAN CORPUSCULAR HGB CONC 33.7 g/dl (32.0-37.0); MEAN CORPUSCULAR VOLUME 86.1 fl (82.0-101.0); RED BLOOD COUNT 3.75 10^6/ul (4.20-5.40); RED CELL DISTRIBUTION WIDTH 17.8 % (11.5-14.5)
[2016-09-15 09:20] LABS: ABNORMAL IP MESSAGE 1; LYMPHOCYTES # 0.3 10^3/ul (0.8-2.9); LYMPHOCYTES % 2.1 % (15.0-51.0); MONOCYTES % 2.8 % (0.0-11.0); NEUTROPHILS % 92.5 % (39.0-77.0); NUCLEATED RED BLOOD CELLS # 0.6 10^3/ul (0.0-0.0); PLATELET COUNT 52 10^3/UL (140-415)
[2016-09-15 09:25] LABS: WHITE BLOOD COUNT 15.1 10^3/ul (4.8-10.8)
--- NOTE | 2016-09-15 09:38 | PN ---
DATE: 09/15/2016 SUBJECTIVE: The patient remains critically ill. The patient currently is off pressor support, on f ull ventilatory support. No other acute events noted. No hemoptysis, hematemesis or hematochezia. OBJECTIVE: VITAL SIGNS: Blood pressure 99/77, respiration 19, pulse 97, temperature 96.0. I's AND O'S: The patient had 4 L in with 925 out. HEENT: Head is normocephalic. NECK: Supple. HEART: Regular rate. LUNGS: Show diminished breath sounds at the base. ABDOMEN: Soft, nontender to palpation without guarding. Positive nephrostomy tubes. EXTREMITIES: Negative for clubbing, cyanosis, positive edema, diffuse anasarca. DERMATOLOGIC: No rashes. MUSCULOSKELETAL: No joint effusions. NEUROLOGIC: No change in exam. MEDICATIONS: The patient's medications have been reviewed. LABORATORY DATA: Shows white count 5.7, hemoglobin 10.7, hematocrit 27.1, platelet count 142. Sodi um 152, potassium 3.6, chloride 117, BUN 27, creatinine 1.08. Urinalysis was refused. IMAGING STUDIES: CT scan of abdomen and pelvis shows bilateral nephrostomy tubes, dilated bowels wi thout evidence of obstruction, large pelvic mass, cultures have been reviewed. ASSESSMENT AND PLAN: 1. Nonoliguric acute kidney injury, etiology is likely secondary to hemodynamic sepsis. The patien t's renal function has remained stable. We will continue current treatment plan, supportive care, r enally dose all meds, avoid nephrotoxins. 2. History of hydronephrosis, status post bilateral nephrostomy tubes. The patient's recent CT sca n shows no evidence of hydronephrosis. Urinary output has been adequate. Will continue to monitor closely. 3. Hypernatremia. The patient's sodium levels have been stable. The patient this morning is, benson mera, had a sodium level of 151. Unclear if this is a real result or spurious. We will repeat a sta t sodium level. We will continue to monitor closely. If the patient is hypernatremic we will start the patient on free water flushes. 4. Volume overload. Etiology secondary to capillary leak, third spacing, congestive heart failure. The patient is currently off pressor support. We will start the patient on Lasix 20 mg IV b.i.d. 5. Ventilator dependent respiratory failure. Vent settings have been reviewed. ABG has been revie wed. Continue to monitor. 6. Sepsis, status post shock, likely from perforated bowel. Continue current antibiotic regimen. Continue supportive care. 7. Elevated troponin, non-ST. Continue medical management. 8. History of metastatic cervical cancer. Continue to monitor. 9. History of cardiomyopathy. Continue current medical management. 10. Anemia. Etiology may be secondary to acute bleed. The patient is status post blood transfusion . Continue to monitor H and H levels closely. Please note I spent over 30 minutes of critical care time with this patient. Dictated By: URIEL TERRAZAS DO NR/NTS Conf#: [id number] DID#: [id number]
[2016-09-15] MEDS ORDERED: FUROSEMIDE 20 MG INJ IV ONE (10:00)
[2016-09-15] MEDS: POTASSIUM CHLORIDE 50 ML IVPB PRN ×2 (10:04→11:37)
--- NOTE | 2016-09-15 10:04 | CONS ---
Date/Time of Note Date/Time of Note DATE: 09/15/16 TIME: 10:02 Assessment/Plan Assessment/Plan Chief Complaint/Hosp Course 61 yo with metastatic cervical cancer s/p chemotherapy , immunotherapy and radiation. Pt has not had chemotherapy or immunotherapy in over a year. 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 It seems that the [facility] oncologist does believe this patient is a candidate for more therapy at this time. Pt underwent a colonoscopy and suffered from a perforated sigmoid colon. She is currently in septic shock and is requiring pressor support. #Metastatic Cervical Cancer -at this time, patient has an extremely poor functional status and is in a critical state in the ICU. There is no oncologic treatment that can be given at this time while she is critically ill. -family still wants patient to be full code -continue critical care supportive care. Pt currently off levophed. -CT A/P 09/14/16 showed no radiologic evidence of hemoperitoneum/intra-abdominal bleed, as clinically queried. Decreased pneumoperitoneum identified in the pelvis. 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 -extremely poor overall prognosis. Her DNR status also discussed by primary team however the son wants to wait for his sister to arrive before the family can decide about further plan of care. #Perforated Sigmoid colon -pt currently not a surgical candidate currently given her current critical condition functional status -surgery is following #Brain Mets -per the son, pt was told that she was not a candidate for post op brain radiation. #Sepsis - lactate> 5. this is likely secondary to the urosepsis as well as sigmoid bowel perforation -continue broad spectrum antibiotics -cont pressor support # Anemia - secondary to metastatic disease and possible GI blood loss. -continue to monitor Hg. If it drops below 8 will consider transfusion. Hgb dropped to 6.7 yesterday, received 2 units pRBCs, Hgb 10.9 today. Problems: Consultation Date/Type/Reason Admit Date/Time September 05, 2016 at 16:23 Initial Consult Date 09/06/16 Type of Consultation: Oncology Referring Provider: ONEIDA COLEMAN 24 HR Interval Summary Free Text/Dictation Patient reportedly followed commands off sedation per nurse, currently on sedation now. Off levophed at this time. Exam/Review of Systems Vital Signs Vitals Vital Signs Date Time Temp Pulse Resp B/P Pulse Ox O2 Delivery O2 Flow Rate FiO2 09/15/16 08:00 103 09/15/16 06:00 19 99/77 100 Mechanical Ventilator 09/15/16 05:15 30 09/15/16 04:00 96.0 Intake and Output 09/14/16 09/14/16 09/15/16 15:00 23:00 07:00 Intake Total 1176.414 ml 1640.941 ml 1095.831 ml Output Total 425 ml 500 ml Balance 1176.414 ml 1215.941 ml 595.831 ml Exam Constitutional: sedated Head: normocephalic ENMT: intubated Neck: non-tender, supple Respiratory: rhonchi Cardiovascular: tachycardic, regular rhythm Gastrointestinal: soft Musculoskeletal: +edema Results Result Diagram: 09/15/16 0825 09/15/16 0825 Results 24 hrs Laboratory Tests Test 09/14/16 13:01 09/14/16 13:15 09/14/16 13:24 09/14/16 18:31 Lab Scanned Report REFERENCE LAB REFERENCE LAB Bedside Glucose 118 122 Test 09/14/16 21:02 09/15/16 01:15 09/15/16 05:00 09/15/16 05:19 Bedside Glucose 118 117 113 Sodium Level 152 #H Potassium Level 3.6 Chloride Level 117 H Carbon Dioxide Level 27 Anion Gap 12 Blood Urea Nitrogen 27 H Creatinine 1.08 H Glucose Level 103 Calcium Level 8.0 L Phosphorus Level 3.0 Albumin 3.4 # Test 09/15/16 05:26 09/15/16 08:25 Lab Scanned Report BLOOD TRANSFUSION White Blood Count 15.1 H Red Blood Count 3.75 #L Hemoglobin 10.9 #L Hematocrit 32.3 #L Mean Corpuscular Volume 86.1 Mean Corpuscular Hemoglobin 29.1 Mean Corpuscular Hemoglobin Concent 33.7 Red Cell Distribution Width 17.8 H Platelet Count 52 L Mean Platelet Volume Neutrophils % 92.5 H Lymphocytes % 2.1 L Monocytes % 2.8 Eosinophils % 0.0 Basophils % 0.3 Nucleated Red Blood Cells % 4.0 H Neutrophils # 14.0 H Lymphocytes # 0.3 L Monocytes # 0.4 Eosinophils # 0.0 Basophils # 0.0 Nucleated Red Blood Cells # 0.6 H Sodium Level 133 #L Potassium Level 3.6 Chloride Level 102 # Carbon Dioxide Level 23 Anion Gap 12 Blood Urea Nitrogen 28 H Creatinine 0.95 Glucose Level 103 Calcium Level 7.9 L Medications Medications Current Medications Acetaminophen (Tylenol Tab) 650 mg Q6H PRN PO PAIN LEVEL 1-3 OR FEVER; Start at 18:30 Morphine Sulfate (morphine) 2 mg Q4H PRN IV SEVERE PAIN LEVEL 7-10; Start 09/05 at 18:30 Docusate Sodium (Colace) 100 mg Q12H PRN PO CONSTIPATION; Start 09/05/16 at 18: 30 Magnesium Hydroxide (Milk Of Mag) 30 ml DAILY PRN PO CONSTIPATION; Start at 18:30 Sodium Biphosphate/ Sodium Phosphate 133 ml 133 ml DAILY PRN MD CONSTIPATION; Start 09/05/16 at 18:30 Piperacillin Sod/ Tazobactam Sod (Zosyn 2.25gm/ 50ml (Pmx)) 50 ml @ 100 mls/hr Q6 IVPB Last administered on 09/15/16 05:24; Admin Dose 100 MLS/HR; Start 09/06 at 00:00 Vancomycin HCl (Vanco Iv Per Pharmacy) VANCOMYCIN PER PHARMACY NOTE XX ; Start 09/05/16 at 18:30 Hydralazine HCl (Apresoline) 10 mg Q6H PRN IV ELEVATED BLOOD PRESSURE; Start at 18:30 Nitroglycerin (Nitroglycerin (Sl Tab) 0.4 Mg) 1 tab Q5M PRN SL ANGINA; Start at 18:30 Insulin Aspart (Novolog Insulin Pen) NOVOLOG *MILD* ALGORI... Q4 SC Last administered on 09/13/16 17:56; Admin Dose 1 UNIT; Start 09/05/16 at 21:00 Miscellaneous Information 1 ea NOTE XX ; Start 09/05/16 at 19:00 Glucose (Glutose) 15 gm Q15M PRN PO DECREASED GLUCOSE; Start 09/05/16 at 19:00 Glucose (Glutose) 22.5 gm Q15M PRN PO DECREASED GLUCOSE; Start 09/05/16 at 19: 00 Dextrose (D50w Syringe) 25 ml Q15M PRN IV DECREASED GLUCOSE; Start 09/05/16 at 19:00 Dextrose (D50w Syringe) 50 ml Q15M PRN IV DECREASED GLUCOSE; Start 09/05/16 at 19:00 Glucagon (Glucagen) 1 mg Q15M PRN IM DECREASED GLUCOSE; Start 09/05/16 at 19:00 Glucose 15 gm 15 gm Q15M PRN BUCCAL DECREASED GLUCOSE; Start 09/05/16 at 19:00 Ondansetron HCl/ Sodium Chloride (Zofran Inj/NS) 54 ml @ 216 mls/hr Q6H PRN IV NAUSEA AND/OR VOMITING Last administered on 09/07/16 17:27; Admin Dose 216 MLS/HR; Start 09/06/16 at 10:30 Pantoprazole 40 mg 40 mg BID@06,18 IV Last administered on 09/15/16 05:24; Admin Dose 40 MG; Start 09/08/16 at 18:00 Metronidazole 100 ml @ 100 mls/hr Q8 IVPB Last administered on 09/15/16 05:24 ; Admin Dose 100 MLS/HR; Start 09/08/16 at 14:00 Fluconazole/ Sodium Chloride (Diflucan 100 Mg/ NS (Pmx)) 50 ml @ 50 mls/hr Q24H IVPB Last administered on 09/14/16 16:42; Admin Dose 50 MLS/HR; Start 09/09/16 at 14:30 Digoxin 125 mcg 125 mcg DAILY@13 IV Last administered on 09/14/16 14:14; Admin Dose 125 MCG; Start 09/10/16 at 13:00 Phenylephrine HCl/ Sodium Chloride (Julio-Syneph/NS) 500 ml @ 18.75 mls/ hr TITRATE IV ; Start 09/10/16 at 10:00 Miscellaneous Information PLEASE CHANGE ALL IVPB F... DAILY XX Last administered on 09/15/16 08:50; Admin Dose 1 EA; Start 09/10/16 at 08:30 Vasopressin 60 unit/Sodium Chloride 103 ml @ 0 mls/hr Q12H IVPB ; Start at 09:00; Status Future Hold Total Parenteral Nutrition 1,000 ml @ 40 mls/hr Q24H IV Last administered on 16:43; Admin Dose 40 MLS/HR; Start 09/11/16 at 16:00 Fat Emulsion Intravenous 500 ml @ 20.833 mls/ hr Q24H IV Last administered on 09/14/16 16:43; Admin Dose 20.833 MLS/HR; Start 09/11/16 at 16:00 Vancomycin HCl 100 ml @ 100 mls/hr Q24H IVPB Last administered on 09/14/16 20: 14; Admin Dose 100 MLS/HR; Start 09/11/16 at 20:00 Norepinephrine 16 mg/Sodium Chloride 500 ml @ 0 mls/hr TITRATE IV Last administered on 09/12/16 00:00; Admin Dose 15 MLS/HR; Start 09/11/16 at 20:31 Fentanyl (Sublimaze) 100 ml @ 5 mls/hr TITRATE IV Last administered on 08:43; Admin Dose 10 MLS/HR; Start 09/13/16 at 07:45 Hydrocortisone (Solu-Cortef) 50 mg Q8 IV Last administered on 09/15/16 05:24; Admin Dose 50 MG; Start 09/13/16 at 14:00 Lorazepam 1 mg 1 mg Q4 PRN IV ANXIETY Last administered on 09/14/16 21:28; Admin Dose 1 MG; Start 09/14/16 at 06:30 Midazolam HCl (Versed) 50 ml @ 1 mls/hr TITRATE IV ; Start 09/14/16 at 10:30 FAMILIA RESTREPO MD Sep 15, 2016 10:03
--- NOTE | 2016-09-15 10:08 | CONS ---
Date/Time of Note Date/Time of Note DATE: 09/15/16 TIME: 10:06 Assessment/Plan Assessment/Plan Additional Assessment/Plan Ventilator setting; AC of 16, tidal volume 400, PEEP of 5, 30% FiO2. Patient currently is on fentanyl drip at 100 mics per hour. Assessment recommendations; 1. Patient admitted with severe sepsis due to bowel perforation. 2. Widely metastatic cervical cancer. 3. Severe sepsis, with hypotension with interval improvement. Patient off pressor support. 4. Thrombocytopenia. 5. Anemia. Status post blood oxygen. 6. Ileus. 7. Hyponatremia, with interval improvement as well. Continue current supportive care. Prognosis is dismal. Consultation Date/Type/Reason Admit Date/Time September 05, 2016 at 16:23 Initial Consult Date 09/06/16 Type of Consultation: Pulmonary/critical care Referring Provider: ONEIDA COLEMAN 24 HR Interval Summary Free Text/Dictation Patient condition remains extremely critical. Requiring full ventilator support. Patient however has been weaned off pressors. Currently maintained on fentanyl drip. General exam; elderly woman, orally intubated, sedated. Currently in no distress. Exam/Review of Systems Vital Signs Vitals Vital Signs Date Time Temp Pulse Resp B/P Pulse Ox O2 Delivery O2 Flow Rate FiO2 09/15/16 08:00 103 09/15/16 06:00 19 99/77 100 Mechanical Ventilator 09/15/16 05:15 30 09/15/16 04:00 96.0 Intake and Output 09/14/16 09/14/16 09/15/16 15:00 23:00 07:00 Intake Total 1176.414 ml 1640.941 ml 1095.831 ml Output Total 425 ml 500 ml Balance 1176.414 ml 1215.941 ml 595.831 ml Exam HEENT exam; supple neck, no JVD. No lymphadenopathy. Midline trachea. No thyromegaly. Pupils are equal and reactive to light. Patient has fair dentition. Chest examined; diminished but clear vessel. S1-S2 audible, no murmurs tachycardic sinus rhythm. Abdomen exam; distended. Bowel sounds are absent. There is a well-healed infraumbilical laparotomy scar. There is abdominal wall edema present. Extremity exam; 3+ generalized anasarca. 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 Results Result Diagram: 09/15/16 0825 09/15/16 0825 Results 24 hrs Laboratory Tests Test 09/14/16 13:01 09/14/16 13:15 09/14/16 13:24 09/14/16 18:31 Lab Scanned Report REFERENCE LAB REFERENCE LAB Bedside Glucose 118 122 Test 09/14/16 21:02 09/15/16 01:15 09/15/16 05:00 09/15/16 05:19 Bedside Glucose 118 117 113 Sodium Level 152 #H Potassium Level 3.6 Chloride Level 117 H Carbon Dioxide Level 27 Anion Gap 12 Blood Urea Nitrogen 27 H Creatinine 1.08 H Glucose Level 103 Calcium Level 8.0 L Phosphorus Level 3.0 Albumin 3.4 # Test 09/15/16 05:26 09/15/16 08:25 Lab Scanned Report BLOOD TRANSFUSION White Blood Count 15.1 H Red Blood Count 3.75 #L Hemoglobin 10.9 #L Hematocrit 32.3 #L Mean Corpuscular Volume 86.1 Mean Corpuscular Hemoglobin 29.1 Mean Corpuscular Hemoglobin Concent 33.7 Red Cell Distribution Width 17.8 H Platelet Count 52 L Mean Platelet Volume Neutrophils % 92.5 H Lymphocytes % 2.1 L Monocytes % 2.8 Eosinophils % 0.0 Basophils % 0.3 Nucleated Red Blood Cells % 4.0 H Neutrophils # 14.0 H Lymphocytes # 0.3 L Monocytes # 0.4 Eosinophils # 0.0 Basophils # 0.0 Nucleated Red Blood Cells # 0.6 H Sodium Level 133 #L Potassium Level 3.6 Chloride Level 102 # Carbon Dioxide Level 23 Anion Gap 12 Blood Urea Nitrogen 28 H Creatinine 0.95 Glucose Level 103 Calcium Level 7.9 L Medications Medications Current Medications Acetaminophen (Tylenol Tab) 650 mg Q6H PRN PO PAIN LEVEL 1-3 OR FEVER; Start at 18:30 Morphine Sulfate (morphine) 2 mg Q4H PRN IV SEVERE PAIN LEVEL 7-10; Start 09/05 at 18:30 Docusate Sodium (Colace) 100 mg Q12H PRN PO CONSTIPATION; Start 09/05/16 at 18: 30 Magnesium Hydroxide (Milk Of Mag) 30 ml DAILY PRN PO CONSTIPATION; Start at 18:30 Sodium Biphosphate/ Sodium Phosphate 133 ml 133 ml DAILY PRN [place] CONSTIPATION; Start 09/05/16 at 18:30 Piperacillin Sod/ Tazobactam Sod (Zosyn 2.25gm/ 50ml (Pmx)) 50 ml @ 100 mls/hr Q6 IVPB Last administered on 09/15/16 05:24; Admin Dose 100 MLS/HR; Start 09/06 at 00:00 Vancomycin HCl (Vanco Iv Per Pharmacy) VANCOMYCIN PER PHARMACY NOTE XX ; Start 09/05/16 at 18:30 Hydralazine HCl (Apresoline) 10 mg Q6H PRN IV ELEVATED BLOOD PRESSURE; Start at 18:30 Nitroglycerin (Nitroglycerin (Sl Tab) 0.4 Mg) 1 tab Q5M PRN SL ANGINA; Start at 18:30 Insulin Aspart (Novolog Insulin Pen) NOVOLOG *MILD* ALGORI... Q4 SC Last administered on 09/13/16 17:56; Admin Dose 1 UNIT; Start 09/05/16 at 21:00 Miscellaneous Information 1 ea NOTE XX ; Start 09/05/16 at 19:00 Glucose (Glutose) 15 gm Q15M PRN PO DECREASED GLUCOSE; Start 09/05/16 at 19:00 Glucose (Glutose) 22.5 gm Q15M PRN PO DECREASED GLUCOSE; Start 09/05/16 at 19: 00 Dextrose (D50w Syringe) 25 ml Q15M PRN IV DECREASED GLUCOSE; Start 09/05/16 at 19:00 Dextrose (D50w Syringe) 50 ml Q15M PRN IV DECREASED GLUCOSE; Start 09/05/16 at 19:00 Glucagon (Glucagen) 1 mg Q15M PRN IM DECREASED GLUCOSE; Start 09/05/16 at 19:00 Glucose 15 gm 15 gm Q15M PRN BUCCAL DECREASED GLUCOSE; Start 09/05/16 at 19:00 Ondansetron HCl/ Sodium Chloride (Zofran Inj/NS) 54 ml @ 216 mls/hr Q6H PRN IV NAUSEA AND/OR VOMITING Last administered on 09/07/16 17:27; Admin Dose 216 MLS/HR; Start 09/06/16 at 10:30 Pantoprazole 40 mg 40 mg BID@06,18 IV Last administered on 09/15/16 05:24; Admin Dose 40 MG; Start 09/08/16 at 18:00 Metronidazole 100 ml @ 100 mls/hr Q8 IVPB Last administered on 09/15/16 05:24 ; Admin Dose 100 MLS/HR; Start 09/08/16 at 14:00 Fluconazole/ Sodium Chloride (Diflucan 100 Mg/ NS (Pmx)) 50 ml @ 50 mls/hr Q24H IVPB Last administered on 09/14/16 16:42; Admin Dose 50 MLS/HR; Start 09/09/16 at 14:30 Digoxin 125 mcg 125 mcg DAILY@13 IV Last administered on 09/14/16 14:14; Admin Dose 125 MCG; Start 09/10/16 at 13:00 Phenylephrine HCl/ Sodium Chloride (Julio-Syneph/NS) 500 ml @ 18.75 mls/ hr TITRATE IV ; Start 09/10/16 at 10:00 Miscellaneous Information PLEASE CHANGE ALL IVPB F... DAILY XX Last administered on 09/15/16 08:50; Admin Dose 1 EA; Start 09/10/16 at 08:30 Vasopressin 60 unit/Sodium Chloride 103 ml @ 0 mls/hr Q12H IVPB ; Start at 09:00; Status Future Hold Total Parenteral Nutrition 1,000 ml @ 40 mls/hr Q24H IV Last administered on 16:43; Admin Dose 40 MLS/HR; Start 09/11/16 at 16:00 Fat Emulsion Intravenous 500 ml @ 20.833 mls/ hr Q24H IV Last administered on 09/14/16 16:43; Admin Dose 20.833 MLS/HR; Start 09/11/16 at 16:00 Vancomycin HCl 100 ml @ 100 mls/hr Q24H IVPB Last administered on 09/14/16 20: 14; Admin Dose 100 MLS/HR; Start 09/11/16 at 20:00 Norepinephrine 16 mg/Sodium Chloride 500 ml @ 0 mls/hr TITRATE IV Last administered on 09/12/16 00:00; Admin Dose 15 MLS/HR; Start 09/11/16 at 20:31 Fentanyl (Sublimaze) 100 ml @ 5 mls/hr TITRATE IV Last administered on 08:43; Admin Dose 10 MLS/HR; Start 09/13/16 at 07:45 Hydrocortisone (Solu-Cortef) 50 mg Q8 IV Last administered on 09/15/16 05:24; Admin Dose 50 MG; Start 09/13/16 at 14:00 Lorazepam 1 mg 1 mg Q4 PRN IV ANXIETY Last administered on 09/14/16 21:28; Admin Dose 1 MG; Start 09/14/16 at 06:30 Midazolam HCl (Versed) 50 ml @ 1 mls/hr TITRATE IV ; Start 09/14/16 at 10:30 SKYLER ESTEVES Sep 15, 2016 10:08
[2016-09-15] MEDS ORDERED: NORepinephrine 8MG/250 ML (PMX 250 ML ONE (11:41)
[2016-09-15] MEDS: NORepinephrine 16 MG in SOD CHLORIDE 0.9% 484 ML IV SCH (11:53)
--- NOTE | 2016-09-15 12:29 | CONS ---
Date/Time of Note Date/Time of Note DATE: 09/15/16 TIME: 12:27 Assessment/Plan Assessment/Plan Chief Complaint/Hosp Course SUBJECTIVE: No events overnight. Off Levophed, looks comfortable on vent INDWELLINGS: Endotracheal tube, NG tube, PICC line, placed 09/11/2016, right chest Port-A-Cath, B nephrostomies. ANTIMICROBIALS: The patient is on: 1. IV vancomycin. 2. Fluconazole. 4. Flagyl. 5. Zosyn. 6. She is also on Solu-Cortef. PHYSICAL EXAMINATION: GENERAL: Chronically ill-appearing, elderly woman, in no distress. HEENT: Head atraumatic, normocephalic. Sclerae anicteric. Buccal mucosa dry. NECK: Supple, trachea midline. CHEST: Chest rise is symmetrical. Breath sounds diminished to the bases. HEART: S1, S2. ABDOMEN: Soft, bowel tones present. Abdomen distended. Bowel tones hypoactive. EXTREMITIES: With bilateral edema. ASSESSMENT: 1. Sepsis with shock and multisystem organ failure. 2. Large pelvic mass/ metastatic cervical cancer 3. Proximal sigmoid colon obstruction with perforation. 4. Urinary tract infection, per urinalysis. 5. Acute renal and respiratory failure. PLAN: Sable off pressors, continue broad-spectrum antibiotics, vent per pulmonary, prognosis is poor. Pt is not a surgical candidate. DW staff Problems: Consultation Date/Type/Reason Admit Date/Time September 05, 2016 at 16:23 Initial Consult Date 09/06/16 Type of Consultation: ID Referring Provider: ONEIDA COLEMAN Exam/Review of Systems Vital Signs Vitals Vital Signs Date Time Temp Pulse Resp B/P Pulse Ox O2 Delivery O2 Flow Rate FiO2 09/15/16 10:55 102 28 100 30 09/15/16 10:30 97/75 Mechanical Ventilator 09/15/16 08:00 98.2 Intake and Output 09/14/16 09/14/16 09/15/16 15:00 23:00 07:00 Intake Total 1176.414 ml 1640.941 ml 1095.831 ml Output Total 425 ml 500 ml Balance 1176.414 ml 1215.941 ml 595.831 ml Results Result Diagram: 09/15/16 0825 09/15/16 0825 Results 24 hrs Laboratory Tests Test 09/14/16 13:01 09/14/16 13:15 09/14/16 13:24 09/14/16 18:31 Lab Scanned Report REFERENCE LAB REFERENCE LAB Bedside Glucose 118 122 Test 09/14/16 21:02 09/15/16 01:15 09/15/16 05:00 09/15/16 05:19 Bedside Glucose 118 117 113 Sodium Level 152 #H Potassium Level 3.6 Chloride Level 117 H Carbon Dioxide Level 27 Anion Gap 12 Blood Urea Nitrogen 27 H Creatinine 1.08 H Glucose Level 103 Calcium Level 8.0 L Phosphorus Level 3.0 Albumin 3.4 # Test 09/15/16 05:26 09/15/16 08:25 Lab Scanned Report BLOOD TRANSFUSION White Blood Count 15.1 H Red Blood Count 3.75 #L Hemoglobin 10.9 #L Hematocrit 32.3 #L Mean Corpuscular Volume 86.1 Mean Corpuscular Hemoglobin 29.1 Mean Corpuscular Hemoglobin Concent 33.7 Red Cell Distribution Width 17.8 H Platelet Count 52 L Mean Platelet Volume Neutrophils % 92.5 H Lymphocytes % 2.1 L Monocytes % 2.8 Eosinophils % 0.0 Basophils % 0.3 Nucleated Red Blood Cells % 4.0 H Neutrophils # 14.0 H Lymphocytes # 0.3 L Monocytes # 0.4 Eosinophils # 0.0 Basophils # 0.0 Nucleated Red Blood Cells # 0.6 H Sodium Level 133 #L Potassium Level 3.6 Chloride Level 102 # Carbon Dioxide Level 23 Anion Gap 12 Blood Urea Nitrogen 28 H Creatinine 0.95 Glucose Level 103 Calcium Level 7.9 L Medications Medications Current Medications Acetaminophen (Tylenol Tab) 650 mg Q6H PRN PO PAIN LEVEL 1-3 OR FEVER; Start at 18:30 Morphine Sulfate (morphine) 2 mg Q4H PRN IV SEVERE PAIN LEVEL 7-10; Start 09/05 at 18:30 Docusate Sodium (Colace) 100 mg Q12H PRN PO CONSTIPATION; Start 09/05/16 at 18: 30 Magnesium Hydroxide (Milk Of Mag) 30 ml DAILY PRN PO CONSTIPATION; Start at 18:30 Sodium Biphosphate/ Sodium Phosphate 133 ml 133 ml DAILY PRN [place] CONSTIPATION; Start 09/05/16 at 18:30 Piperacillin Sod/ Tazobactam Sod (Zosyn 2.25gm/ 50ml (Pmx)) 50 ml @ 100 mls/hr Q6 IVPB Last administered on 09/15/16 05:24; Admin Dose 100 MLS/HR; Start 09/06 at 00:00 Vancomycin HCl (Vanco Iv Per Pharmacy) VANCOMYCIN PER PHARMACY NOTE XX ; Start 09/05/16 at 18:30 Hydralazine HCl (Apresoline) 10 mg Q6H PRN IV ELEVATED BLOOD PRESSURE; Start at 18:30 Nitroglycerin (Nitroglycerin (Sl Tab) 0.4 Mg) 1 tab Q5M PRN SL ANGINA; Start at 18:30 Insulin Aspart (Novolog Insulin Pen) NOVOLOG *MILD* ALGORI... Q4 SC Last administered on 09/13/16 17:56; Admin Dose 1 UNIT; Start 09/05/16 at 21:00 Miscellaneous Information 1 ea NOTE XX ; Start 09/05/16 at 19:00 Glucose (Glutose) 15 gm Q15M PRN PO DECREASED GLUCOSE; Start 09/05/16 at 19:00 Glucose (Glutose) 22.5 gm Q15M PRN PO DECREASED GLUCOSE; Start 09/05/16 at 19: 00 Dextrose (D50w Syringe) 25 ml Q15M PRN IV DECREASED GLUCOSE; Start 09/05/16 at 19:00 Dextrose (D50w Syringe) 50 ml Q15M PRN IV DECREASED GLUCOSE; Start 09/05/16 at 19:00 Glucagon (Glucagen) 1 mg Q15M PRN IM DECREASED GLUCOSE; Start 09/05/16 at 19:00 Glucose 15 gm 15 gm Q15M PRN BUCCAL DECREASED GLUCOSE; Start 09/05/16 at 19:00 Ondansetron HCl/ Sodium Chloride (Zofran Inj/NS) 54 ml @ 216 mls/hr Q6H PRN IV NAUSEA AND/OR VOMITING Last administered on 09/07/16 17:27; Admin Dose 216 MLS/HR; Start 09/06/16 at 10:30 Pantoprazole 40 mg 40 mg BID@06,18 IV Last administered on 09/15/16 05:24; Admin Dose 40 MG; Start 09/08/16 at 18:00 Metronidazole 100 ml @ 100 mls/hr Q8 IVPB Last administered on 09/15/16 05:24 ; Admin Dose 100 MLS/HR; Start 09/08/16 at 14:00 Fluconazole/ Sodium Chloride (Diflucan 100 Mg/ NS (Pmx)) 50 ml @ 50 mls/hr Q24H IVPB Last administered on 09/14/16 16:42; Admin Dose 50 MLS/HR; Start 09/09/16 at 14:30 Digoxin 125 mcg 125 mcg DAILY@13 IV Last administered on 09/14/16 14:14; Admin Dose 125 MCG; Start 09/10/16 at 13:00 Phenylephrine HCl/ Sodium Chloride (Julio-Syneph/NS) 500 ml @ 18.75 mls/ hr TITRATE IV ; Start 09/10/16 at 10:00 Miscellaneous Information PLEASE CHANGE ALL IVPB F... DAILY XX Last administered on 09/15/16 08:50; Admin Dose 1 EA; Start 09/10/16 at 08:30 Vasopressin 60 unit/Sodium Chloride 103 ml @ 0 mls/hr Q12H IVPB ; Start at 09:00; Status Future Hold Total Parenteral Nutrition 1,000 ml @ 40 mls/hr Q24H IV Last administered on 16:43; Admin Dose 40 MLS/HR; Start 09/11/16 at 16:00 Fat Emulsion Intravenous 500 ml @ 20.833 mls/ hr Q24H IV Last administered on 09/14/16 16:43; Admin Dose 20.833 MLS/HR; Start 09/11/16 at 16:00 Vancomycin HCl 100 ml @ 100 mls/hr Q24H IVPB Last administered on 09/14/16 20: 14; Admin Dose 100 MLS/HR; Start 09/11/16 at 20:00 Norepinephrine 16 mg/Sodium Chloride 500 ml @ 0 mls/hr TITRATE IV Last administered on 09/15/16 11:53; Admin Dose 3.75 MLS/HR; Start 09/11/16 at 20:31 Fentanyl (Sublimaze) 100 ml @ 5 mls/hr TITRATE IV Last administered on 08:43; Admin Dose 10 MLS/HR; Start 09/13/16 at 07:45 Hydrocortisone (Solu-Cortef) 50 mg Q8 IV Last administered on 09/15/16 05:24; Admin Dose 50 MG; Start 09/13/16 at 14:00 Lorazepam 1 mg 1 mg Q4 PRN IV ANXIETY Last administered on 09/14/16t 21:28; Admin Dose 1 MG; Start 09/14/16 at 06:30 Midazolam HCl (Versed) 50 ml @ 1 mls/hr TITRATE IV ; Start 09/14/16 at 10:30 BIN MITTAL NP Sep 15, 2016 12:29
[2016-09-15] MEDS: DIGOXIN 500 MCG INJ IV SCH (13:52)
[2016-09-15] MEDS: FLUCONAZOLE 100 MG/NS (PMX) 50 ML IVPB SCH (14:04)
--- NOTE | 2016-09-15 16:10 | PN ---
Date/Time of Note Date/Time of Note DATE: 09/15/16 TIME: 16:09 Assessment/Plan VTE Prophylaxis VTE Prophylaxis Intervention: SCD's Lines/Catheters Urinary Cath still in place: No Assessment/Plan Chief Complaint/Hosp Course 1. Severe systemic systemic inflammatory response syndrome with shock in patient with known metastatic cancer likely due to sepsis 2. Post colonoscopy perforated viscus: improved Large pelvic mass invading colon wall site of perforation Contrast leakage to pelvic area: not seen on last CT Contained perforation as no evidence of generalized peritonitis 3. 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 Chronic ureteral obstruction from #3 s/p nephrostomy tube bilateral 5. Severe cardiomyopathy with EF 20% thought to be likely ischemic 6. Occult GI bleed secondary to metastatic mass 7. Recurrent anemia requiring transfusion secondary to the above 8. Acute respiratory failure secondary to profound septic shock 9. Underlying abdominal ileus secondary to an obstructing sigmoid colon mass with patient now on TPN 10. Severe LE edema and anasarca 2/2 mass effect PLAN: Continue intensive care unit monitoring. Continue to wean pressors to keep systolic blood pressure above 90 Continue vent management and weaning Serial lab monitoring and electrolyte replacement Started on steroids per pulmonary Continue digoxin per cardiology Continue empiric broad-spectrum antibiotics for sepsis in an immunosuppressed patient with unclear source Definitely not a candidate for any form of cancer therapy at this point Ed Special Education Teacher management and recommendations is appreciated Deep venous thrombosis prophylaxis. Bilateral sequential compression devices. Gastrointestinal prophylaxis. Proton pump inhibitors. Extremely poor prognosis. Problems: Subjective 24 Hr Interval Summary Subjective hx not possible: pt non-verbal Exam/Review of Systems Vital Signs Vitals Vital Signs Date Time Temp Pulse Resp B/P Pulse Ox O2 Delivery O2 Flow Rate FiO2 09/15/16 14:30 99 19 99/75 100 Mechanical Ventilator 09/15/16 13:15 97.3 09/15/16 12:00 30 Intake and Output 09/14/16 09/14/16 09/15/16 15:00 23:00 07:00 Intake Total 1176.414 ml 1640.941 ml 1095.831 ml Output Total 425 ml 500 ml Balance 1176.414 ml 1215.941 ml 595.831 ml Exam Constitutional: non-verbal Respiratory: clear to auscultation Cardiovascular: regular rate and rhythm Gastrointestinal: soft, No distended Musculoskeletal: nl extremities to inspection Results Result Diagram: 09/15/16 0825 09/15/16 0825 Results 24 hrs Laboratory Tests Test 09/14/16 18:31 09/14/16 21:02 09/15/16 01:15 09/15/16 05:00 Bedside Glucose 122 118 117 Sodium Level 152 #H Potassium Level 3.6 Chloride Level 117 H Carbon Dioxide Level 27 Anion Gap 12 Blood Urea Nitrogen 27 H Creatinine 1.08 H Glucose Level 103 Calcium Level 8.0 L Phosphorus Level 3.0 Albumin 3.4 # Test 09/15/16 05:19 09/15/16 05:26 09/15/16 08:25 09/15/16 13:50 Bedside Glucose 113 139 Lab Scanned Report BLOOD TRANSFUSION White Blood Count 15.1 H Red Blood Count 3.75 #L Hemoglobin 10.9 #L Hematocrit 32.3 #L Mean Corpuscular Volume 86.1 Mean Corpuscular Hemoglobin 29.1 Mean Corpuscular Hemoglobin Concent 33.7 Red Cell Distribution Width 17.8 H Platelet Count 52 L Mean Platelet Volume Neutrophils % 92.5 H Lymphocytes % 2.1 L Monocytes % 2.8 Eosinophils % 0.0 Basophils % 0.3 Nucleated Red Blood Cells % 4.0 H Neutrophils # 14.0 H Lymphocytes # 0.3 L Monocytes # 0.4 Eosinophils # 0.0 Basophils # 0.0 Nucleated Red Blood Cells # 0.6 H Sodium Level 133 #L Potassium Level 3.6 Chloride Level 102 # Carbon Dioxide Level 23 Anion Gap 12 Blood Urea Nitrogen 28 H Creatinine 0.95 Glucose Level 103 Calcium Level 7.9 L Medications Medications Current Medications Acetaminophen (Tylenol Tab) 650 mg Q6H PRN PO PAIN LEVEL 1-3 OR FEVER; Start at 18:30 Morphine Sulfate (morphine) 2 mg Q4H PRN IV SEVERE PAIN LEVEL 7-10; Start 09/05 at 18:30 Docusate Sodium (Colace) 100 mg Q12H PRN PO CONSTIPATION; Start 09/05/16 at 18: 30 Magnesium Hydroxide (Milk Of Mag) 30 ml DAILY PRN PO CONSTIPATION; Start at 18:30 Sodium Biphosphate/ Sodium Phosphate 133 ml 133 ml DAILY PRN [place] CONSTIPATION; Start 09/05/16 at 18:30 Piperacillin Sod/ Tazobactam Sod (Zosyn 2.25gm/ 50ml (Pmx)) 50 ml @ 100 mls/hr Q6 IVPB Last administered on 09/15/16 13:52; Admin Dose 100 MLS/HR; Start 09/06 at 00:00 Vancomycin HCl (Vanco Iv Per Pharmacy) VANCOMYCIN PER PHARMACY NOTE XX ; Start 09/05/16 at 18:30 Hydralazine HCl (Apresoline) 10 mg Q6H PRN IV ELEVATED BLOOD PRESSURE; Start at 18:30 Nitroglycerin (Nitroglycerin (Sl Tab) 0.4 Mg) 1 tab Q5M PRN SL ANGINA; Start at 18:30 Insulin Aspart (Novolog Insulin Pen) NOVOLOG *MILD* ALGORI... Q4 SC Last administered on 09/13/16 17:56; Admin Dose 1 UNIT; Start 09/05/16 at 21:00 Miscellaneous Information 1 ea NOTE XX ; Start 09/05/16 at 19:00 Glucose (Glutose) 15 gm Q15M PRN PO DECREASED GLUCOSE; Start 09/05/16 at 19:00 Glucose (Glutose) 22.5 gm Q15M PRN PO DECREASED GLUCOSE; Start 09/05/16 at 19: 00 Dextrose (D50w Syringe) 25 ml Q15M PRN IV DECREASED GLUCOSE; Start 09/05/16 at 19:00 Dextrose (D50w Syringe) 50 ml Q15M PRN IV DECREASED GLUCOSE; Start 09/05/16 at 19:00 Glucagon (Glucagen) 1 mg Q15M PRN IM DECREASED GLUCOSE; Start 09/05/16 at 19:00 Glucose 15 gm 15 gm Q15M PRN BUCCAL DECREASED GLUCOSE; Start 09/05/16 at 19:00 Ondansetron HCl/ Sodium Chloride (Zofran Inj/NS) 54 ml @ 216 mls/hr Q6H PRN IV NAUSEA AND/OR VOMITING Last administered on 09/07/16 17:27; Admin Dose 216 MLS/HR; Start 09/06/16 at 10:30 Pantoprazole 40 mg 40 mg BID@06,18 IV Last administered on 09/15/16 05:24; Admin Dose 40 MG; Start 09/08/16 at 18:00 Metronidazole 100 ml @ 100 mls/hr Q8 IVPB Last administered on 09/15/16 13:51 ; Admin Dose 100 MLS/HR; Start 09/08/16 at 14:00 Fluconazole/ Sodium Chloride (Diflucan 100 Mg/ NS (Pmx)) 50 ml @ 50 mls/hr Q24H IVPB Last administered on 09/15/16 14:04; Admin Dose 50 MLS/HR; Start 09/09/16 at 14:30 Digoxin 125 mcg 125 mcg DAILY@13 IV Last administered on 09/15/16 13:52; Admin Dose 125 MCG; Start 09/10/16 at 13:00 Phenylephrine HCl/ Sodium Chloride (Julio-Syneph/NS) 500 ml @ 18.75 mls/ hr TITRATE IV ; Start 09/10/16 at 10:00 Miscellaneous Information PLEASE CHANGE ALL IVPB F... DAILY XX Last administered on 09/15/16 08:50; Admin Dose 1 EA; Start 09/10/16 at 08:30 Vasopressin 60 unit/Sodium Chloride 103 ml @ 0 mls/hr Q12H IVPB ; Start at 09:00; Status Future Hold Total Parenteral Nutrition 1,000 ml @ 40 mls/hr Q24H IV Last administered on 16:43; Admin Dose 40 MLS/HR; Start 09/11/16 at 16:00 Fat Emulsion Intravenous 500 ml @ 20.833 mls/ hr Q24H IV Last administered on 09/14/16 16:43; Admin Dose 20.833 MLS/HR; Start 09/11/16 at 16:00 Vancomycin HCl 100 ml @ 100 mls/hr Q24H IVPB Last administered on 09/14/16 20: 14; Admin Dose 100 MLS/HR; Start 09/11/16 at 20:00 Norepinephrine 16 mg/Sodium Chloride 500 ml @ 0 mls/hr TITRATE IV Last administered on 09/15/16 11:53; Admin Dose 3.75 MLS/HR; Start 09/11/16 at 20:31 Fentanyl (Sublimaze) 100 ml @ 5 mls/hr TITRATE IV Last administered on 08:43; Admin Dose 10 MLS/HR; Start 09/13/16 at 07:45 Hydrocortisone (Solu-Cortef) 50 mg Q8 IV Last administered on 09/15/16 13:52; Admin Dose 50 MG; Start 09/13/16 at 14:00 Lorazepam 1 mg 1 mg Q4 PRN IV ANXIETY Last administered on 09/14/16 21:28; Admin Dose 1 MG; Start 09/14/16 at 06:30 Midazolam HCl (Versed) 50 ml @ 1 mls/hr TITRATE IV ; Start 09/14/16 at 10:30 Miscellaneous Information (*Rx Drug Level Order Reminder*) 1 ONCE ONCE XX ; Start 09/15/16 at 19:00; Stop 09/15/16 at 19:01 CHERRI ALAN Sep 15, 2016 16:10
[2016-09-15] MEDS: FAT EMULSION 20% 500 ML IV SCH (16:53)
[2016-09-15] MEDS: TPN 1,000 ML IV SCH (16:53)
[2016-09-15] MEDS: FUROSEMIDE 20 MG INJ IV SCH (17:27)
--- NOTE | 2016-09-15 17:40 | PN ---
DATE: 09/15/2016 CARDIOLOGY FOLLOWUP SUBJECTIVE: Discussed with the staff. Rhythm strip was reviewed. The patient off of pressors. Bl ood pressure is on the low side but stable. Remains on the vent, intubated. Remains in sinus rhyth m. MEDICATIONS: Reviewed as per medication reconciliation, personally reviewed. PHYSICAL EXAMINATION: VITAL SIGNS: Temperature 97.8, heart rate of 94, blood pressure 99/76, respiration rate of 24, satu rating 100%. HEENT: Normocephalic, atraumatic. Status post intubation on the vent. CARDIOVASCULAR: Regular rate and rhythm, systolic murmur. PULMONARY: Mild rhonchi with no wheezes heard. GASTROINTESTINAL: Abdomen soft. No rebound or guarding is noted. EXTREMITIES: Diffuse lower extremity edema. NEUROLOGIC: Opens eyes, responds appropriately. PSYCHIATRIC: Appears to be calm. LABORATORY: WBC of 15.1, hemoglobin 10.9, platelets of 52. Sodium 133, potassium is 3.6, BUN of 28 , creatinine 0.95, glucose of 103. ASSESSMENT AND PLAN: 1. Septic shock. 2. Perforated bowel. 3. Severe cardiomyopathy, probably nonischemic, although cannot completely rule out coronary arter y disease. 4. Severe thrombocytopenia. 5. Severe anemia. 6. History of metastatic cervical cancer. 7. Positive stool and anemia. 8. Respiratory failure, status post intubation on the vent. 9. Lower extremity edema, anasarca. RECOMMENDATIONS: 1. We will continue with the supportive care for electrolyte abnormality, hypernatremia but today w ith hyponatremia. 2. We will continue with nutritional support. We will continue with digoxin. Will check the level tomorrow and adjust it if needed. Antibiotic is managed as per internal medicine. Follow surgical recommendations. Will check electrolytes as well. Continue with the ICU care. Dictated By: JIM ABDI MD AV/EHSAN Conf#: [id number] DID#: [id number] CC: CHERRI ALAN MD;*End*
[2016-09-15] MEDS: VANCOMYCIN 500MG/NS (PMX) 100 ML IVPB SCH (20:02)
[2016-09-16] VITALS (47 sets, daily range): BP systolic 88–129; BP diastolic 56–84; PULSE 83–102; RESP 13–30
[2016-09-16] MEDS: PIPER-TAZO 2.25 GM (PMX) 50 ML IVPB SCH ×4 (00:07→18:11)
[2016-09-16] MEDS: LORAZEPAM 2 MG INJ IV PRN ×2 (01:25→22:58)
[2016-09-16] MEDS: FENTAnyl (DRIP) 1000 mcg/100mL 100 ML IV SCH ×4 (02:37→23:50)
[2016-09-16] MEDS: PANTOPRAZOLE 40 MG INJ IV SCH ×2 (05:02→18:12)
[2016-09-16] MEDS: HYDROCORTISONE 100 MG INJ IV SCH ×3 (05:02→21:23)
[2016-09-16] MEDS: FUROSEMIDE 20 MG INJ IV SCH ×2 (05:02→18:12)
--- NOTE | 2016-09-16 05:15 | PN ---
Date/Time of Note Date/Time of Note DATE: 09/15/16 TIME: 11:14 Assessment/Plan Lines/Catheters IV Catheter Type (from [facility]): PICC Line Fleming in Place (from [facility]): No Assessment/Plan Chief Complaint/Hosp Course 1. Septic shock, multifactorial due to presenting infection plus sigmoid perforation after colonoscopy. Contained. CT noted. Improving. -abx -judicious fluid management -supportive measures 2. Metastatic cervical cancer, off treatment from [facility] since they deem it to be too dangerous for her as above. -onc following 3. Anemia, worsening. ? source. CT noted. -tx prn 4. Significant hypoalbuminemia is multifactorial; however, she is not able to tolerate feeds at this time. 5. Probable hydronephrosis with obstruction. Currently with bilateral nephrostomy tubes. Continue tubes to drainage and monitor closely. 6. Electrolyte abnormalities. Please correct with judicious fluid management and replacement as needed. 7. Decubitus ulceration. Continue offloading, local care and eventually, if patient survives through this, nutritional optimization and vitamin replenishment. Thank you Late entry 09/15 Problems: Subjective 24 Hr Interval Summary No f/c. No cough. No sz. No rash. No vomiting. Bloated. Leukocytosis. Hg improved s/p transfusions. No bleeding. Exam/Review of Systems Vital Signs Vitals Vital Signs Date Time Temp Pulse Resp B/P Pulse Ox O2 Delivery O2 Flow Rate FiO2 09/16/16 03:30 88 18 101/63 100 Mechanical Ventilator 09/16/16 01:21 30 09/16/16 00:00 97.3 Intake and Output 09/15/16 09/15/16 09/16/16 15:00 23:00 07:00 Intake Total 763.10 ml 785.732 ml 481.665 ml Output Total 310 ml 680 ml 250 ml Balance 453.10 ml 105.732 ml 231.665 ml Exam Free Text/Dictation GENERAL: Intubated, obese HEENT: Pupils are sluggish. No scleral icterus. Mucous membranes are moist. NECK: JVD. No crepitus. Trachea midline. PULMONARY: Minimally coarse. CARDIAC: S1, S2 and tachycardic. ABDOMEN: Distended and taut EXTREMITIES: Minimal edema. VASCULAR: Capillary refill is over 3 seconds. NEUROLOGIC: Not able to follow commands. LYMPHATICS: No inguinal lymphadenopathy. Results Result Diagram: 09/15/16 0825 09/15/16 0825 DANIEL ALEXANDRE MD Sep 16, 2016 05:15
[2016-09-16] MEDS: INSULIN ASPART [NOVOLOG] 3 ML PEN SC SCH ×4 (05:29→18:00)
[2016-09-16] MEDS: metroNIDAZOLE 500 MG/NS (PMX) 100 ML IVPB SCH ×3 (05:29→21:24)
[2016-09-16 06:06] LABS: ADD SCAN DIFF NO
[2016-09-16 06:08] LABS: ABNORMAL IP MESSAGE 1; BASOPHILS % 0.3 % (0.0-2.0); HEMATOCRIT 29.1 % (37.0-47.0); HEMOGLOBIN 9.7 g/dl (12.0-16.0); LYMPHOCYTES # 0.2 10^3/ul (0.8-2.9); LYMPHOCYTES % 1.3 % (15.0-51.0); MEAN CORPUSCULAR HEMOGLOBIN 29.1 pg (29.0-33.0); MEAN CORPUSCULAR HGB CONC 33.3 g/dl (32.0-37.0); MEAN CORPUSCULAR VOLUME 87.4 fl (82.0-101.0); MONOCYTE # 0.3 10^3/ul (0.3-0.9); MONOCYTES % 2.6 % (0.0-11.0); NEUTROPHIL # 11.1 10^3/ul (1.6-7.5); NUCLEATED RED BLOOD CELLS # 0.3 10^3/ul (0.0-0.0); NUCLEATED RED BLOOD CELLS% 2.4 /100WBC (0.0-0.0); PLATELET COUNT 45 10^3/UL (140-415); RED BLOOD COUNT 3.33 10^6/ul (4.20-5.40); RED CELL DISTRIBUTION WIDTH 18.6 % (11.5-14.5); WHITE BLOOD COUNT 11.9 10^3/ul (4.8-10.8)
[2016-09-16 06:30] LABS: NEUTROPHILS % 93.6 % (39.0-77.0)
[2016-09-16 06:48] LABS: CALCIUM 7.8 mg/dl (8.4-10.2); CREATININE 0.92 mg/dl (0.44-1.00); PHOSPHORUS 3.7 mg/dl (2.5-4.9); POTASSIUM 3.7 mmol/L (3.5-5.1)
[2016-09-16 06:52] LABS: CALCIUM 7.9 mg/dl (8.4-10.2); CREATININE 0.89 mg/dl (0.44-1.00); MAGNESIUM 2.1 mg/dl (1.7-2.5); PHOSPHORUS 3.6 mg/dl (2.5-4.9); POTASSIUM 3.9 mmol/L (3.5-5.1)
[2016-09-16] MEDS: POTASSIUM CHLORIDE 50 ML IVPB PRN (07:35)
--- NOTE | 2016-09-16 08:51 | PN ---
DATE: 09/16/2016 SUBJECTIVE: The patient remains critical on full ventilatory support. No other acute events noted. No hemoptysis, hematemesis or hematochezia. The patient has good urinary output with diuretic the rapy. OBJECTIVE: VITAL SIGNS: Blood pressure 121/70, respirations 25, pulse 98, temperature 98.6. HEENT: Head is normocephalic. NECK: Supple. HEART: Regular rate. LUNGS: Show diminished breath sounds at base. ABDOMEN: Soft, nontender to palpation. No rebound or guarding. EXTREMITIES: Negative for clubbing, cyanosis. Positive edema, diffuse anasarca. DERMATOLOGIC: No rashes. MUSCULOSKELETAL: No joint effusions. NEUROLOGIC: No change in exam. MEDICATIONS: The patient's medications have been reviewed. LABORATORY DATA: Shows sodium 135, potassium 2.7, chloride 105, BUN 28, creatinine 0.92. White cou nt 11.9, hemoglobin 9.7, hematocrit 21.1, platelet count is 45. IMAGING: Studies reviewed. ASSESSMENT AND PLAN: 1. Nonoliguric acute kidney injury with unknown baseline creatinine. Etiology is secondary to hemo dynamics, sepsis. The patient's renal function is normalized, currently remains stable. Continue c urrent treatment plan, supportive care, renally dose all meds. 2. History of hydronephrosis, status post bilateral nephrostomy tubes. Repeat imaging study so no current evidence of hydronephrosis. Continue to monitor. 3. Hyponatremia. The patient's sodium levels have slowly been improving. Continue free water rest riction. Continue diuretic therapy. 4. Volume overload. Etiology is secondary capillary leak third spacing, congestive heart failure. The patient is currently on pressor support. Will continue current diuretic therapy and intensify diuretics as needed. 5. Ventilator dependent respiratory failure. Vent settings have been reviewed. ABG has been revie wed. Continue to monitor. 6. Sepsis, status post shock. Continue current antibiotic regimen. The patient is currently off p ressors. Continue supportive care. 7. Possible perforated bowel. The patient was seen by general surgery. No plan for intervention a t this time. Continue supportive care. 8. Elevated troponin with recent non-STEMI. Continue medical management. 9. History of metastatic cervical cancer. Continue to monitor. 10. History of cardiomyopathy. Continue current treatment plan. Follow up with cardiology. 11. Anemia secondary to GI bleed. Continue to monitor H and H levels. 13. Nutrition, to TPN. Please note I spent over 35 minutes of critical care time with this patient. Dictated By: URIEL RAMESH/EHSAN Conf#: [id number] DID#: [id number]
[2016-09-16] MEDS: [UNRECOGNIZED DRUG - REMARK] XX SCH (09:00)
--- NOTE | 2016-09-16 10:55 | CONS ---
Date/Time of Note Date/Time of Note DATE: 09/16/16 TIME: 10:52 Assessment/Plan Assessment/Plan Additional Assessment/Plan Ventilator setting; AC of 16, tidal volume 400, PEEP of 5, 30% FiO2. Patient currently on fentanyl 800 mics per hour. Assessment recommendations; next 1. Patient admitted for severe sepsis from bowel perforation. Patient not a surgical candidate on account of widely metastatic cervical cancer. 2. History of bilateral nephrostomies. Patient maintaining good urine output. 3. Generalized anasarca with interval improvement. From underlying sepsis. 4. Thrombocytopenia. 5. Anemia. 6. Hyponatremia with interval improvement. Continue current supportive care. Prognosis is extremely poor. Consultation Date/Type/Reason Admit Date/Time September 05, 2016 at 16:23 Initial Consult Date 09/06/16 Type of Consultation: Pulmonary/critical care Referring Provider: ONEIDA COLEMAN 24 HR Interval Summary Free Text/Dictation Patient condition remains critical. Remains fully ventilator dependent. However patient has remained hemodynamically stable. No untoward events reported. General exam; elderly woman, orally intubated, sedated, currently in no distress. Exam/Review of Systems Vital Signs Vitals Vital Signs Date Time Temp Pulse Resp B/P Pulse Ox O2 Delivery O2 Flow Rate FiO2 09/16/16 09:48 92 19 100 30 09/16/16 06:30 121/70 Mechanical Ventilator 09/16/16 04:00 96.3 Intake and Output 09/15/16 09/15/16 09/16/16 15:00 23:00 07:00 Intake Total 763.10 ml 785.732 ml 813.331 ml Output Total 310 ml 680 ml 1750 ml Balance 453.10 ml 105.732 ml -936.669 ml Exam HEENT exam; supple neck, no JVD. No lymphadenopathy. Midline trachea. No thyromegaly. Pupils are small bilaterally. Patient has fair dentition. Chest examined; clear to auscultation. S1-S2 audible, no murmurs. Regular rhythm. Abdomen exam is; distended. Bowel sounds are absent. There is a well-healed infraumbilical scar present. Extremity exam; there is decreased edema in upper extremities, 3+ edema in lower extremities. Next [employer]TIVE [employer]UCATION TE[employer]ER examination; patient is sedated. Results Result Diagram: 09/16/16 0500 09/16/16 0500 Results 24 hrs Laboratory Tests Test 09/15/16 13:50 09/15/16 18:24 09/15/16 19:00 09/16/16 00:11 Bedside Glucose 139 122 127 Vancomycin Level Trough 18.1 Test 09/16/16 05:00 09/16/16 05:28 White Blood Count 11.9 #H Red Blood Count 3.33 L Hemoglobin 9.7 L Hematocrit 29.1 L Mean Corpuscular Volume 87.4 Mean Corpuscular Hemoglobin 29.1 Mean Corpuscular Hemoglobin Concent 33.3 Red Cell Distribution Width 18.6 H Platelet Count 45 L Mean Platelet Volume Neutrophils % 93.6 H Lymphocytes % 1.3 L Monocytes % 2.6 Eosinophils % 0.0 Basophils % 0.3 Nucleated Red Blood Cells % 2.4 H Neutrophils # 11.1 H Lymphocytes # 0.2 L Monocytes # 0.3 Eosinophils # 0.0 Basophils # 0.0 Nucleated Red Blood Cells # 0.3 H Sodium Level 135 Potassium Level 3.7 Chloride Level 105 Carbon Dioxide Level 23 Anion Gap 11 Blood Urea Nitrogen 28 H Creatinine 0.92 Glucose Level 106 Calcium Level 7.8 L Phosphorus Level 3.7 Magnesium Level 2.1 Albumin 2.0 #L Digoxin Level 1.6 Bedside Glucose 116 Medications Medications Current Medications Acetaminophen (Tylenol Tab) 650 mg Q6H PRN PO PAIN LEVEL 1-3 OR FEVER; Start at 18:30 Morphine Sulfate (morphine) 2 mg Q4H PRN IV SEVERE PAIN LEVEL 7-10; Start 09/05 at 18:30 Docusate Sodium (Colace) 100 mg Q12H PRN PO CONSTIPATION; Start 09/05/16 at 18: 30 Magnesium Hydroxide (Milk Of Mag) 30 ml DAILY PRN PO CONSTIPATION; Start at 18:30 Sodium Biphosphate/ Sodium Phosphate 133 ml 133 ml DAILY PRN NE CONSTIPATION; Start 09/05/16 at 18:30 Piperacillin Sod/ Tazobactam Sod (Zosyn 2.25gm/ 50ml (Pmx)) 50 ml @ 100 mls/hr Q6 IVPB Last administered on 09/16/16t 05:29; Admin Dose 100 MLS/HR; Start 09/06 at 00:00 Vancomycin HCl (Vanco Iv Per Pharmacy) VANCOMYCIN PER PHARMACY NOTE XX ; Start 09/05/16 at 18:30 Hydralazine HCl (Apresoline) 10 mg Q6H PRN IV ELEVATED BLOOD PRESSURE; Start at 18:30 Nitroglycerin (Nitroglycerin (Sl Tab) 0.4 Mg) 1 tab Q5M PRN SL ANGINA; Start at 18:30 Miscellaneous Information 1 ea NOTE XX ; Start 09/05/16 at 19:00 Glucose (Glutose) 15 gm Q15M PRN PO DECREASED GLUCOSE; Start 09/05/16 at 19:00 Glucose (Glutose) 22.5 gm Q15M PRN PO DECREASED GLUCOSE; Start 09/05/16 at 19: 00 Dextrose (D50w Syringe) 25 ml Q15M PRN IV DECREASED GLUCOSE; Start 09/05/16 at 19:00 Dextrose (D50w Syringe) 50 ml Q15M PRN IV DECREASED GLUCOSE; Start 09/05/16 at 19:00 Glucagon (Glucagen) 1 mg Q15M PRN IM DECREASED GLUCOSE; Start 09/05/16 at 19:00 Glucose 15 gm 15 gm Q15M PRN BUCCAL DECREASED GLUCOSE; Start 09/05/16 at 19:00 Ondansetron HCl/ Sodium Chloride (Zofran Inj/NS) 54 ml @ 216 mls/hr Q6H PRN IV NAUSEA AND/OR VOMITING Last administered on 09/07/16 17:27; Admin Dose 216 MLS/HR; Start 09/06/16 at 10:30 Pantoprazole 40 mg 40 mg BID@06,18 IV Last administered on 09/16/16 05:02; Admin Dose 40 MG; Start 09/08/16 at 18:00 Metronidazole 100 ml @ 100 mls/hr Q8 IVPB Last administered on 09/16/16 05:29 ; Admin Dose 100 MLS/HR; Start 09/08/16 at 14:00 Fluconazole/ Sodium Chloride (Diflucan 100 Mg/ NS (Pmx)) 50 ml @ 50 mls/hr Q24H IVPB Last administered on 09/15/16 14:04; Admin Dose 50 MLS/HR; Start 09/09/16 at 14:30 Digoxin 125 mcg 125 mcg DAILY@13 IV Last administered on 09/15/16 13:52; Admin Dose 125 MCG; Start 09/10/16 at 13:00 Phenylephrine HCl/ Sodium Chloride (Julio-Syneph/NS) 500 ml @ 18.75 mls/ hr TITRATE IV ; Start 09/10/16 at 10:00 Miscellaneous Information PLEASE CHANGE ALL IVPB F... DAILY XX Last administered on 09/15/16 08:50; Admin Dose 1 EA; Start 09/10/16 at 08:30 Vasopressin 60 unit/Sodium Chloride 103 ml @ 0 mls/hr Q12H IVPB ; Start at 09:00; Status Future Hold Total Parenteral Nutrition 1,000 ml @ 40 mls/hr Q24H IV Last administered on 16:53; Admin Dose 40 MLS/HR; Start 09/11/16 at 16:00 Fat Emulsion Intravenous 500 ml @ 20.833 mls/ hr Q24H IV Last administered on 09/15/16 16:53; Admin Dose 20.833 MLS/HR; Start 09/11/16 at 16:00 Vancomycin HCl 100 ml @ 100 mls/hr Q24H IVPB Last administered on 09/15/16 20: 02; Admin Dose 100 MLS/HR; Start 09/11/16 at 20:00 Norepinephrine 16 mg/Sodium Chloride 500 ml @ 0 mls/hr TITRATE IV Last administered on 09/15/16 11:53; Admin Dose 3.75 MLS/HR; Start 09/11/16 at 20:31 Fentanyl (Sublimaze) 100 ml @ 5 mls/hr TITRATE IV Last administered on 02:37; Admin Dose 5 MLS/HR; Start 09/13/16 at 07:45 Hydrocortisone (Solu-Cortef) 50 mg Q8 IV Last administered on 09/16/16 05:02; Admin Dose 50 MG; Start 09/13/16 at 14:00 Lorazepam 1 mg 1 mg Q4 PRN IV ANXIETY Last administered on 09/16/16 01:25; Admin Dose 1 MG; Start 09/14/16 at 06:30 Midazolam HCl (Versed) 50 ml @ 1 mls/hr TITRATE IV ; Start 09/14/16 at 10:30 Insulin Aspart (Novolog Insulin Pen) NOVOLOG *MILD* ALGORI... Q6 SC ; Start 09/16 at 00:00 Collagenase (Santyl) 1 applic DAILY TOP ; Start 09/17/16 at 09:00 SKYLER ESTEVES Sep 16, 2016 10:55
--- NOTE | 2016-09-16 11:31 | PN ---
DATE: 09/16/2016 CARDIOLOGY FOLLOWUP SUBJECTIVE: Discussed with the staff. Discussed with the patient's son. The patient remains intub ated on the vent. Blood pressure has remained stable off of any pressors. MEDICATIONS: Reviewed. PHYSICAL EXAMINATION: VITAL SIGNS: Temperature 96.3, heart rate of 92, blood pressure 121/70, respiratory rate 19, satura ting 100%. HEENT: Normocephalic, atraumatic. Status post intubation on the vent. CARDIOVASCULAR: Regular rate and rhythm. PULMONARY: With no wheezes. GASTROINTESTINAL: Soft. No rebound or guarding. EXTREMITIES: Diffuse lower extremity edema. NEUROLOGIC: Awake, follows commands. PSYCHIATRIC: Appears to be calm. LABORATORY DATA: WBC 11.9, hemoglobin 9.7, platelets of 45. Digoxin level is 1.6. Sodium 135, pot assium 3.5, BUN 28, creatinine 0.92, glucose of 106. Albumin is 2.0. ASSESSMENT AND PLAN: 1. Severe cardiomyopathy, probably nonischemic. 2. Hypoxemic respiratory failure, status post intubation on the vent. 3. Septic shock secondary to perforated bowel. 4. Perforated bowel post-colonoscopy. 5. Severe thrombocytopenia. 6. Anemia. 7. Metastatic cervical cancer. 8. OB positive stool and anemia. 9. Lower extremity edema and anasarca. RECOMMENDATIONS: I will discontinue the digoxin now that the level has come up. We will monitor he r. Electrolytes will be corrected as needed. Vent support will be continued. Weaning as tolerated , if she is able to tolerate it. Antibiotics are being managed as per internal medicine. Continue with the ICU care. Dictated By: JIM ABDI MD AV/EHSAN Conf#: [id number] DID#: [id number] CC: URIEL TERRAZAS DO; CHERRI ALAN MD;*EndCC*
--- NOTE | 2016-09-16 13:28 | CONS ---
Date/Time of Note Date/Time of Note DATE: 09/16/16 TIME: 13:27 Assessment/Plan Assessment/Plan Chief Complaint/Hosp Course SUBJECTIVE: No events overnight. Off Levophed, looks comfortable on vent INDWELLINGS: Endotracheal tube, NG tube, PICC line, placed 09/11/2016, right chest Port-A-Cath, B nephrostomies. ANTIMICROBIALS: The patient is on: 1. IV vancomycin. 2. Fluconazole. 4. Flagyl. 5. Zosyn. 6. She is also on Solu-Cortef. PHYSICAL EXAMINATION: GENERAL: Chronically ill-appearing, elderly woman, in no distress. HEENT: Head atraumatic, normocephalic. Sclerae anicteric. Buccal mucosa dry. NECK: Supple, trachea midline. CHEST: Chest rise is symmetrical. Breath sounds diminished to the bases. HEART: S1, S2. ABDOMEN: Soft, bowel tones present. Abdomen distended. Bowel tones hypoactive. EXTREMITIES: With bilateral edema. ASSESSMENT: 1. Sepsis with shock and multisystem organ failure. 2. Large pelvic mass/ metastatic cervical cancer 3. Proximal sigmoid colon obstruction with perforation. 4. Urinary tract infection, per urinalysis. 5. Acute renal and respiratory failure. PLAN: Sable off pressors, WBC decreasing, continue broad-spectrum antibiotics, vent per pulmonary, pt is not a surgical candidate. DW staff Problems: Consultation Date/Type/Reason Admit Date/Time September 05, 2016 at 16:23 Initial Consult Date 09/06/16 Type of Consultation: id Referring Provider: ONEIDA COLEMAN Exam/Review of Systems Vital Signs Vitals Vital Signs Date Time Temp Pulse Resp B/P Pulse Ox O2 Delivery O2 Flow Rate FiO2 09/16/16 12:00 91 09/16/16 11:38 18 100 30 09/16/16 06:30 121/70 Mechanical Ventilator 09/16/16 04:00 96.3 Intake and Output 09/15/16 09/15/16 09/16/16 14:59 22:59 06:59 Intake Total 713.10 ml 835.699 ml 884.164 ml Output Total 310 ml 615 ml 1815 ml Balance 403.10 ml 220.699 ml -930.836 ml Results Result Diagram: 09/16/16 0500 09/16/16 0500 Results 24 hrs Laboratory Tests Test 09/15/16 13:50 09/15/16 18:24 09/15/16 19:00 09/16/16 00:11 Bedside Glucose 139 122 127 Vancomycin Level Trough 18.1 Test 09/16/16 05:00 09/16/16 05:28 09/16/16 12:40 White Blood Count 11.9 #H Red Blood Count 3.33 L Hemoglobin 9.7 L Hematocrit 29.1 L Mean Corpuscular Volume 87.4 Mean Corpuscular Hemoglobin 29.1 Mean Corpuscular Hemoglobin Concent 33.3 Red Cell Distribution Width 18.6 H Platelet Count 45 L Mean Platelet Volume Neutrophils % 93.6 H Lymphocytes % 1.3 L Monocytes % 2.6 Eosinophils % 0.0 Basophils % 0.3 Nucleated Red Blood Cells % 2.4 H Neutrophils # 11.1 H Lymphocytes # 0.2 L Monocytes # 0.3 Eosinophils # 0.0 Basophils # 0.0 Nucleated Red Blood Cells # 0.3 H Sodium Level 135 Potassium Level 3.7 Chloride Level 105 Carbon Dioxide Level 23 Anion Gap 11 Blood Urea Nitrogen 28 H Creatinine 0.92 Glucose Level 106 Calcium Level 7.8 L Phosphorus Level 3.7 Magnesium Level 2.1 Albumin 2.0 #L Digoxin Level 1.6 Bedside Glucose 116 118 Medications Medications Current Medications Acetaminophen (Tylenol Tab) 650 mg Q6H PRN PO PAIN LEVEL 1-3 OR FEVER; Start at 18:30 Morphine Sulfate (morphine) 2 mg Q4H PRN IV SEVERE PAIN LEVEL 7-10; Start 09/05 at 18:30 Docusate Sodium (Colace) 100 mg Q12H PRN PO CONSTIPATION; Start 09/05/16 at 18: 30 Magnesium Hydroxide (Milk Of Mag) 30 ml DAILY PRN PO CONSTIPATION; Start at 18:30 Sodium Biphosphate/ Sodium Phosphate 133 ml 133 ml DAILY PRN DC CONSTIPATION; Start 09/05/16 at 18:30 Piperacillin Sod/ Tazobactam Sod (Zosyn 2.25gm/ 50ml (Pmx)) 50 ml @ 100 mls/hr Q6 IVPB Last administered on 09/16/16t 12:41; Admin Dose 100 MLS/HR; Start 09/06 at 00:00 Vancomycin HCl (Vanco Iv Per Pharmacy) VANCOMYCIN PER PHARMACY NOTE XX ; Start 09/05/16 at 18:30 Hydralazine HCl (Apresoline) 10 mg Q6H PRN IV ELEVATED BLOOD PRESSURE; Start at 18:30 Nitroglycerin (Nitroglycerin (Sl Tab) 0.4 Mg) 1 tab Q5M PRN SL ANGINA; Start at 18:30 Miscellaneous Information 1 ea NOTE XX ; Start 09/05/16 at 19:00 Glucose (Glutose) 15 gm Q15M PRN PO DECREASED GLUCOSE; Start 09/05/16 at 19:00 Glucose (Glutose) 22.5 gm Q15M PRN PO DECREASED GLUCOSE; Start 09/05/16 at 19: 00 Dextrose (D50w Syringe) 25 ml Q15M PRN IV DECREASED GLUCOSE; Start 09/05/16 at 19:00 Dextrose (D50w Syringe) 50 ml Q15M PRN IV DECREASED GLUCOSE; Start 09/05/16 at 19:00 Glucagon (Glucagen) 1 mg Q15M PRN IM DECREASED GLUCOSE; Start 09/05/16 at 19:00 Glucose 15 gm 15 gm Q15M PRN BUCCAL DECREASED GLUCOSE; Start 09/05/16 at 19:00 Ondansetron HCl/ Sodium Chloride (Zofran Inj/NS) 54 ml @ 216 mls/hr Q6H PRN IV NAUSEA AND/OR VOMITING Last administered on 09/07/16 17:27; Admin Dose 216 MLS/HR; Start 09/06/16 at 10:30 Pantoprazole 40 mg 40 mg BID@06,18 IV Last administered on 09/16/16 05:02; Admin Dose 40 MG; Start 09/08/16 at 18:00 Metronidazole 100 ml @ 100 mls/hr Q8 IVPB Last administered on 09/16/16 05:29 ; Admin Dose 100 MLS/HR; Start 09/08/16 at 14:00 Fluconazole/ Sodium Chloride 50 ml @ 50 mls/hr Q24H IVPB Last administered on 14:04; Admin Dose 50 MLS/HR; Start 09/09/16 at 14:30 Phenylephrine HCl/ Sodium Chloride (Julio-Syneph/NS) 500 ml @ 18.75 mls/ hr TITRATE IV ; Start 09/10/16 at 10:00 Miscellaneous Information PLEASE CHANGE ALL IVPB F... DAILY XX Last administered on 09/15/16 08:50; Admin Dose 1 EA; Start 09/10/16 at 08:30 Vasopressin 60 unit/Sodium Chloride 103 ml @ 0 mls/hr Q12H IVPB ; Start at 09:00; Status Future Hold Total Parenteral Nutrition 1,000 ml @ 40 mls/hr Q24H IV Last administered on 16:53; Admin Dose 40 MLS/HR; Start 09/11/16 at 16:00 Fat Emulsion Intravenous 500 ml @ 20.833 mls/ hr Q24H IV Last administered on 09/15/16 16:53; Admin Dose 20.833 MLS/HR; Start 09/11/16 at 16:00 Vancomycin HCl 100 ml @ 100 mls/hr Q24H IVPB Last administered on 09/15/16 20: 02; Admin Dose 100 MLS/HR; Start 09/11/16 at 20:00 Norepinephrine 16 mg/Sodium Chloride 500 ml @ 0 mls/hr TITRATE IV Last administered on 09/15/16 11:53; Admin Dose 3.75 MLS/HR; Start 09/11/16 at 20:31 Fentanyl (Sublimaze) 100 ml @ 5 mls/hr TITRATE IV Last administered on 02:37; Admin Dose 5 MLS/HR; Start 09/13/16 at 07:45 Hydrocortisone (Solu-Cortef) 50 mg Q8 IV Last administered on 09/16/16 05:02; Admin Dose 50 MG; Start 09/13/16 at 14:00 Lorazepam 1 mg 1 mg Q4 PRN IV ANXIETY Last administered on 09/16/16 01:25; Admin Dose 1 MG; Start 09/14/16 at 06:30 Midazolam HCl (Versed) 50 ml @ 1 mls/hr TITRATE IV ; Start 09/14/16 at 10:30 Insulin Aspart (Novolog Insulin Pen) NOVOLOG *MILD* ALGORI... Q6 SC ; Start 09/16 at 00:00 Collagenase (Santyl) 1 applic DAILY TOP ; Start 09/17/16 at 09:00 BIN MITTAL NP Sep 16, 2016 13:28
--- NOTE | 2016-09-16 13:35 | CONS ---
Date/Time of Note Date/Time of Note DATE: 09/16/16 TIME: 13:31 Assessment/Plan Assessment/Plan Chief Complaint/Hosp Course 61 yo with metastatic cervical cancer s/p chemotherapy , immunotherapy and radiation. Pt has not had chemotherapy or immunotherapy in over a year. 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 It seems that the [facility] oncologist does believe this patient is a candidate for more therapy at this time. Pt underwent a colonoscopy and suffered from a perforated sigmoid colon . She is currently in septic shock and has since been weaned off the pressors #Metastatic Cervical Cancer -at this time, patient has an extremely poor functional status and is in a critical state in the ICU. there is no oncologic treatment that can be given at this time while she is critically ill. -family still wants patient to be full code -continue critical care supportive care. Pt in now on Levophed 5mcg # Anemia -likely from underlying sepsis and GI bleed -pt is now s/p blood transfusion. -will transfuse if Hg < 8 #Perforated Sigmoid colon -pt currently not a surgical candidate currently given her current critical condition functional status -surgery is following #Brain Mets -per the son, pt was told that she was not a candidate for post op brain radiation. #Sepsis - lactate> 5. this is likely secondary to the urosepsis as well as sigmoid bowel perforation -continue broad spectrum antibiotics -appreciate ID recs approximately 1 hour was spent at patient's bedside, with her family, and coordination of her care Problems: Consultation Date/Type/Reason Admit Date/Time September 05, 2016 at 16:23 Initial Consult Date 09/06/16 Type of Consultation: Oncology Reason for Consultation metastatic cervical cancer Referring Provider: ONEIDA COLEMAN 24 HR Interval Summary Free Text/Dictation pt remains intubated but off pressors. She is weeping from the L groin and remains edematous. on Lasix Exam/Review of Systems Vital Signs Vitals Vital Signs Date Time Temp Pulse Resp B/P Pulse Ox O2 Delivery O2 Flow Rate FiO2 09/16/16 12:00 91 09/16/16 11:38 18 100 30 09/16/16 06:30 121/70 Mechanical Ventilator 09/16/16 04:00 96.3 Intake and Output 09/15/16 09/15/16 09/16/16 15:00 23:00 07:00 Intake Total 763.10 ml 785.732 ml 813.331 ml Output Total 310 ml 680 ml 1750 ml Balance 453.10 ml 105.732 ml -936.669 ml Exam Constitutional: alert Head: normocephalic Eyes: nl conjunctiva ENMT: intubated Neck: non-tender, supple Respiratory: diminished breath sounds Cardiovascular: nl pulses, regular rate and rhythm Gastrointestinal: soft Musculoskeletal: swelling Results Result Diagram: 09/16/16 0500 09/16/16 0500 Results 24 hrs Laboratory Tests Test 09/15/16 13:50 09/15/16 18:24 09/15/16 19:00 09/16/16 00:11 Bedside Glucose 139 122 127 Vancomycin Level Trough 18.1 Test 09/16/16 05:00 09/16/16 05:28 09/16/16 12:40 White Blood Count 11.9 #H Red Blood Count 3.33 L Hemoglobin 9.7 L Hematocrit 29.1 L Mean Corpuscular Volume 87.4 Mean Corpuscular Hemoglobin 29.1 Mean Corpuscular Hemoglobin Concent 33.3 Red Cell Distribution Width 18.6 H Platelet Count 45 L Mean Platelet Volume Neutrophils % 93.6 H Lymphocytes % 1.3 L Monocytes % 2.6 Eosinophils % 0.0 Basophils % 0.3 Nucleated Red Blood Cells % 2.4 H Neutrophils # 11.1 H Lymphocytes # 0.2 L Monocytes # 0.3 Eosinophils # 0.0 Basophils # 0.0 Nucleated Red Blood Cells # 0.3 H Sodium Level 135 Potassium Level 3.7 Chloride Level 105 Carbon Dioxide Level 23 Anion Gap 11 Blood Urea Nitrogen 28 H Creatinine 0.92 Glucose Level 106 Calcium Level 7.8 L Phosphorus Level 3.7 Magnesium Level 2.1 Albumin 2.0 #L Digoxin Level 1.6 Bedside Glucose 116 118 Medications Medications Current Medications Acetaminophen (Tylenol Tab) 650 mg Q6H PRN PO PAIN LEVEL 1-3 OR FEVER; Start at 18:30 Morphine Sulfate (morphine) 2 mg Q4H PRN IV SEVERE PAIN LEVEL 7-10; Start 09/05 at 18:30 Docusate Sodium (Colace) 100 mg Q12H PRN PO CONSTIPATION; Start 09/05/16 at 18: 30 Magnesium Hydroxide (Milk Of Mag) 30 ml DAILY PRN PO CONSTIPATION; Start at 18:30 Sodium Biphosphate/ Sodium Phosphate 133 ml 133 ml DAILY PRN [place] CONSTIPATION; Start 09/05/16 at 18:30 Piperacillin Sod/ Tazobactam Sod (Zosyn 2.25gm/ 50ml (Pmx)) 50 ml @ 100 mls/hr Q6 IVPB Last administered on 09/16/16 12:41; Admin Dose 100 MLS/HR; Start 09/06 at 00:00 Vancomycin HCl (Vanco Iv Per Pharmacy) VANCOMYCIN PER PHARMACY NOTE XX ; Start 09/05/16 at 18:30 Hydralazine HCl (Apresoline) 10 mg Q6H PRN IV ELEVATED BLOOD PRESSURE; Start at 18:30 Nitroglycerin (Nitroglycerin (Sl Tab) 0.4 Mg) 1 tab Q5M PRN SL ANGINA; Start at 18:30 Miscellaneous Information 1 ea NOTE XX ; Start 09/05/16 at 19:00 Glucose (Glutose) 15 gm Q15M PRN PO DECREASED GLUCOSE; Start 09/05/16 at 19:00 Glucose (Glutose) 22.5 gm Q15M PRN PO DECREASED GLUCOSE; Start 09/05/16 at 19: 00 Dextrose (D50w Syringe) 25 ml Q15M PRN IV DECREASED GLUCOSE; Start 09/05/16 at 19:00 Dextrose (D50w Syringe) 50 ml Q15M PRN IV DECREASED GLUCOSE; Start 09/05/16 at 19:00 Glucagon (Glucagen) 1 mg Q15M PRN IM DECREASED GLUCOSE; Start 09/05/16 at 19:00 Glucose 15 gm 15 gm Q15M PRN BUCCAL DECREASED GLUCOSE; Start 09/05/16 at 19:00 Ondansetron HCl/ Sodium Chloride (Zofran Inj/NS) 54 ml @ 216 mls/hr Q6H PRN IV NAUSEA AND/OR VOMITING Last administered on 09/07/16 17:27; Admin Dose 216 MLS/HR; Start 09/06/16 at 10:30 Pantoprazole 40 mg 40 mg BID@06,18 IV Last administered on 09/16/16 05:02; Admin Dose 40 MG; Start 09/08/16 at 18:00 Metronidazole 100 ml @ 100 mls/hr Q8 IVPB Last administered on 09/16/16 05:29 ; Admin Dose 100 MLS/HR; Start 09/08/16 at 14:00 Fluconazole/ Sodium Chloride 50 ml @ 50 mls/hr Q24H IVPB Last administered on 14:04; Admin Dose 50 MLS/HR; Start 09/09/16 at 14:30 Phenylephrine HCl/ Sodium Chloride (Julio-Syneph/NS) 500 ml @ 18.75 mls/ hr TITRATE IV ; Start 09/10/16 at 10:00 Miscellaneous Information PLEASE CHANGE ALL IVPB F... DAILY XX Last administered on 09/15/16 08:50; Admin Dose 1 EA; Start 09/10/16 at 08:30 Vasopressin 60 unit/Sodium Chloride 103 ml @ 0 mls/hr Q12H IVPB ; Start at 09:00; Status Future Hold Total Parenteral Nutrition 1,000 ml @ 40 mls/hr Q24H IV Last administered on 16:53; Admin Dose 40 MLS/HR; Start 09/11/16 at 16:00 Fat Emulsion Intravenous 500 ml @ 20.833 mls/ hr Q24H IV Last administered on 09/15/16 16:53; Admin Dose 20.833 MLS/HR; Start 09/11/16 at 16:00 Vancomycin HCl 100 ml @ 100 mls/hr Q24H IVPB Last administered on 09/15/16 20: 02; Admin Dose 100 MLS/HR; Start 09/11/16 at 20:00 Norepinephrine 16 mg/Sodium Chloride 500 ml @ 0 mls/hr TITRATE IV Last administered on 09/15/16 11:53; Admin Dose 3.75 MLS/HR; Start 09/11/16 at 20:31 Fentanyl (Sublimaze) 100 ml @ 5 mls/hr TITRATE IV Last administered on 02:37; Admin Dose 5 MLS/HR; Start 09/13/16 at 07:45 Hydrocortisone (Solu-Cortef) 50 mg Q8 IV Last administered on 09/16/16 05:02; Admin Dose 50 MG; Start 09/13/16 at 14:00 Lorazepam 1 mg 1 mg Q4 PRN IV ANXIETY Last administered on 09/16/16t 01:25; Admin Dose 1 MG; Start 09/14/16 at 06:30 Midazolam HCl (Versed) 50 ml @ 1 mls/hr TITRATE IV ; Start 09/14/16 at 10:30 Insulin Aspart (Novolog Insulin Pen) NOVOLOG *MILD* ALGORI... Q6 SC ; Start 09/16 at 00:00 Collagenase (Santyl) 1 applic DAILY TOP ; Start 09/17/16 at 09:00 MINOO SOTO M.D. Sep 16, 2016 13:35
--- NOTE | 2016-09-16 14:28 | PN ---
Date/Time of Note Date/Time of Note DATE: 09/16/16 TIME: 14:28 Assessment/Plan VTE Prophylaxis VTE Prophylaxis Intervention: SCD's Lines/Catheters Urinary Cath still in place: No Assessment/Plan Chief Complaint/Hosp Course 1. Severe systemic systemic inflammatory response syndrome with shock in patient with known metastatic cancer likely due to sepsis 2. Post colonoscopy perforated viscus: improved Large pelvic mass invading colon wall site of perforation Contrast leakage to pelvic area: not seen on last CT Contained perforation as no evidence of generalized peritonitis 3. 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 Chronic ureteral obstruction from #3 s/p nephrostomy tube bilateral 5. Severe cardiomyopathy with EF 20% thought to be likely ischemic 6. Occult GI bleed secondary to metastatic mass 7. Recurrent anemia requiring transfusion secondary to the above 8. Acute respiratory failure secondary to profound septic shock 9. Underlying abdominal ileus secondary to an obstructing sigmoid colon mass with patient now on TPN 10. Severe LE edema and anasarca 2/2 mass effect PLAN: Continue intensive care unit monitoring. Continue to wean pressors to keep systolic blood pressure above 90 Continue vent management and weaning Serial lab monitoring and electrolyte replacement Started on steroids per pulmonary Continue digoxin per cardiology Continue empiric broad-spectrum antibiotics for sepsis in an immunosuppressed patient with unclear source Definitely not a candidate for any form of cancer therapy at this point Retread Supervisor management and recommendations is appreciated Deep venous thrombosis prophylaxis. Bilateral sequential compression devices. Gastrointestinal prophylaxis. Proton pump inhibitors. Extremely poor prognosis. Problems: Subjective 24 Hr Interval Summary Subjective hx not possible: pt non-verbal Exam/Review of Systems Vital Signs Vitals Vital Signs Date Time Temp Pulse Resp B/P Pulse Ox O2 Delivery O2 Flow Rate FiO2 09/16/16 12:00 91 09/16/16 11:38 18 100 30 09/16/16 06:30 121/70 Mechanical Ventilator 09/16/16 04:00 96.3 Intake and Output 09/15/16 09/15/16 09/16/16 15:00 23:00 07:00 Intake Total 763.10 ml 785.732 ml 813.331 ml Output Total 310 ml 680 ml 1750 ml Balance 453.10 ml 105.732 ml -936.669 ml Exam Constitutional: non-verbal ENMT: intubated Respiratory: clear to auscultation Cardiovascular: regular rate and rhythm Gastrointestinal: soft, No distended Musculoskeletal: nl extremities to inspection Results Result Diagram: 09/16/16 0500 09/16/16 0500 Results 24 hrs Laboratory Tests Test 09/15/16 18:24 09/15/16 19:00 09/16/16 00:11 09/16/16 05:00 Bedside Glucose 122 127 Vancomycin Level Trough 18.1 White Blood Count 11.9 #H Red Blood Count 3.33 L Hemoglobin 9.7 L Hematocrit 29.1 L Mean Corpuscular Volume 87.4 Mean Corpuscular Hemoglobin 29.1 Mean Corpuscular Hemoglobin Concent 33.3 Red Cell Distribution Width 18.6 H Platelet Count 45 L Mean Platelet Volume Neutrophils % 93.6 H Lymphocytes % 1.3 L Monocytes % 2.6 Eosinophils % 0.0 Basophils % 0.3 Nucleated Red Blood Cells % 2.4 H Neutrophils # 11.1 H Lymphocytes # 0.2 L Monocytes # 0.3 Eosinophils # 0.0 Basophils # 0.0 Nucleated Red Blood Cells # 0.3 H Sodium Level 135 Potassium Level 3.7 Chloride Level 105 Carbon Dioxide Level 23 Anion Gap 11 Blood Urea Nitrogen 28 H Creatinine 0.92 Glucose Level 106 Calcium Level 7.8 L Phosphorus Level 3.7 Magnesium Level 2.1 Albumin 2.0 #L Digoxin Level 1.6 Test 09/16/16 05:28 09/16/16 12:40 Bedside Glucose 116 118 Medications Medications Current Medications Acetaminophen (Tylenol Tab) 650 mg Q6H PRN PO PAIN LEVEL 1-3 OR FEVER; Start at 18:30 Morphine Sulfate (morphine) 2 mg Q4H PRN IV SEVERE PAIN LEVEL 7-10; Start 09/05 at 18:30 Docusate Sodium (Colace) 100 mg Q12H PRN PO CONSTIPATION; Start 09/05/16 at 18: 30 Magnesium Hydroxide (Milk Of Mag) 30 ml DAILY PRN PO CONSTIPATION; Start at 18:30 Sodium Biphosphate/ Sodium Phosphate 133 ml 133 ml DAILY PRN [place] CONSTIPATION; Start 09/05/16 at 18:30 Piperacillin Sod/ Tazobactam Sod (Zosyn 2.25gm/ 50ml (Pmx)) 50 ml @ 100 mls/hr Q6 IVPB Last administered on 09/16/16t 12:41; Admin Dose 100 MLS/HR; Start 09/06 at 00:00 Vancomycin HCl (Vanco Iv Per Pharmacy) VANCOMYCIN PER PHARMACY NOTE XX ; Start 09/05/16 at 18:30 Hydralazine HCl (Apresoline) 10 mg Q6H PRN IV ELEVATED BLOOD PRESSURE; Start at 18:30 Nitroglycerin (Nitroglycerin (Sl Tab) 0.4 Mg) 1 tab Q5M PRN SL ANGINA; Start at 18:30 Miscellaneous Information 1 ea NOTE XX ; Start 09/05/16 at 19:00 Glucose (Glutose) 15 gm Q15M PRN PO DECREASED GLUCOSE; Start 09/05/16 at 19:00 Glucose (Glutose) 22.5 gm Q15M PRN PO DECREASED GLUCOSE; Start 09/05/16 at 19: 00 Dextrose (D50w Syringe) 25 ml Q15M PRN IV DECREASED GLUCOSE; Start 09/05/16 at 19:00 Dextrose (D50w Syringe) 50 ml Q15M PRN IV DECREASED GLUCOSE; Start 09/05/16 at 19:00 Glucagon (Glucagen) 1 mg Q15M PRN IM DECREASED GLUCOSE; Start 09/05/16 at 19:00 Glucose 15 gm 15 gm Q15M PRN BUCCAL DECREASED GLUCOSE; Start 09/05/16 at 19:00 Ondansetron HCl/ Sodium Chloride (Zofran Inj/NS) 54 ml @ 216 mls/hr Q6H PRN IV NAUSEA AND/OR VOMITING Last administered on 09/07/16 17:27; Admin Dose 216 MLS/HR; Start 09/06/16 at 10:30 Pantoprazole 40 mg 40 mg BID@06,18 IV Last administered on 09/16/16 05:02; Admin Dose 40 MG; Start 09/08/16 at 18:00 Metronidazole 100 ml @ 100 mls/hr Q8 IVPB Last administered on 09/16/16 05:29 ; Admin Dose 100 MLS/HR; Start 09/08/16 at 14:00 Fluconazole/ Sodium Chloride 50 ml @ 50 mls/hr Q24H IVPB Last administered on 14:04; Admin Dose 50 MLS/HR; Start 09/09/16 at 14:30 Phenylephrine HCl/ Sodium Chloride (Julio-Syneph/NS) 500 ml @ 18.75 mls/ hr TITRATE IV ; Start 09/10/16 at 10:00 Miscellaneous Information PLEASE CHANGE ALL IVPB F... DAILY XX Last administered on 09/15/16 08:50; Admin Dose 1 EA; Start 09/10/16 at 08:30 Vasopressin 60 unit/Sodium Chloride 103 ml @ 0 mls/hr Q12H IVPB ; Start at 09:00; Status Future Hold Total Parenteral Nutrition 1,000 ml @ 40 mls/hr Q24H IV Last administered on 16:53; Admin Dose 40 MLS/HR; Start 09/11/16 at 16:00 Fat Emulsion Intravenous 500 ml @ 20.833 mls/ hr Q24H IV Last administered on 09/15/16 16:53; Admin Dose 20.833 MLS/HR; Start 09/11/16 at 16:00 Vancomycin HCl 100 ml @ 100 mls/hr Q24H IVPB Last administered on 09/15/16 20: 02; Admin Dose 100 MLS/HR; Start 09/11/16 at 20:00 Norepinephrine 16 mg/Sodium Chloride 500 ml @ 0 mls/hr TITRATE IV Last administered on 09/15/16 11:53; Admin Dose 3.75 MLS/HR; Start 09/11/16 at 20:31 Fentanyl (Sublimaze) 100 ml @ 5 mls/hr TITRATE IV Last administered on 13:37; Admin Dose 10 MLS/HR; Start 09/13/16 at 07:45 Hydrocortisone (Solu-Cortef) 50 mg Q8 IV Last administered on 09/16/16 05:02; Admin Dose 50 MG; Start 09/13/16 at 14:00 Lorazepam 1 mg 1 mg Q4 PRN IV ANXIETY Last administered on 09/16/16 01:25; Admin Dose 1 MG; Start 09/14/16 at 06:30 Midazolam HCl (Versed) 50 ml @ 1 mls/hr TITRATE IV ; Start 09/14/16 at 10:30 Insulin Aspart (Novolog Insulin Pen) NOVOLOG *MILD* ALGORI... Q6 SC ; Start 09/16 at 00:00 Collagenase (Santyl) 1 applic DAILY TOP ; Start 09/17/16 at 09:00 CHERRI ALAN Sep 16, 2016 14:28
[2016-09-16] MEDS: FLUCONAZOLE 100 MG/NS (PMX) 50 ML IVPB SCH (15:57)
--- NOTE | 2016-09-16 16:45 | PN ---
Date/Time of Note Date/Time of Note DATE: 09/16/16 TIME: 16:40 Assessment/Plan VTE Prophylaxis VTE Prophylaxis Intervention: contraindicated Lines/Catheters Urinary Cath still in place: No Assessment/Plan Assessment/Plan Anemia/no overt GI bleeding Rule out intra-abdominal bleeding versus hemolysis versus GI bleeding with slow transit Post colonoscopy perforated viscus * Large pelvic mass invading colon wall site of perforation * Contrast leakage to pelvic area * ?Contained perforation as no evidence of generalized peritonitis Sepsis Metastatic cervical CA/Adrenal/brain History of cervical cancer S/P nephrostomy tube bilateral EF 20% Plan continue present management Case was discussed with Dr Durant Subjective 24 Hr Interval Summary Free Text/Dictation * Course reviewed with RN * Patient seen and examined * Still on pressors Exam/Review of Systems Vital Signs Vitals Vital Signs Date Time Temp Pulse Resp B/P Pulse Ox O2 Delivery O2 Flow Rate FiO2 09/16/16 13:42 87 19 100 30 09/16/16 06:30 121/70 Mechanical Ventilator 09/16/16 04:00 96.3 Intake and Output 09/15/16 09/15/16 09/16/16 15:00 23:00 07:00 Intake Total 763.10 ml 785.732 ml 813.331 ml Output Total 310 ml 680 ml 1750 ml Balance 453.10 ml 105.732 ml -936.669 ml Exam Constitutional: frail ENMT: intubated Neck: non-tender, supple Respiratory: diminished breath sounds, normal air movement Cardiovascular: nl pulses, regular rate and rhythm Gastrointestinal: distended, soft Musculoskeletal: muscle weakness, swelling Extremities: normal pulses Results Result Diagram: 09/16/16 0500 09/16/16 0500 Results 24 hrs Laboratory Tests Test 09/15/16 18:24 09/15/16 19:00 09/16/16 00:11 09/16/16 05:00 Bedside Glucose 122 127 Vancomycin Level Trough 18.1 White Blood Count 11.9 #H Red Blood Count 3.33 L Hemoglobin 9.7 L Hematocrit 29.1 L Mean Corpuscular Volume 87.4 Mean Corpuscular Hemoglobin 29.1 Mean Corpuscular Hemoglobin Concent 33.3 Red Cell Distribution Width 18.6 H Platelet Count 45 L Mean Platelet Volume Neutrophils % 93.6 H Lymphocytes % 1.3 L Monocytes % 2.6 Eosinophils % 0.0 Basophils % 0.3 Nucleated Red Blood Cells % 2.4 H Neutrophils # 11.1 H Lymphocytes # 0.2 L Monocytes # 0.3 Eosinophils # 0.0 Basophils # 0.0 Nucleated Red Blood Cells # 0.3 H Sodium Level 135 Potassium Level 3.7 Chloride Level 105 Carbon Dioxide Level 23 Anion Gap 11 Blood Urea Nitrogen 28 H Creatinine 0.92 Glucose Level 106 Calcium Level 7.8 L Phosphorus Level 3.7 Magnesium Level 2.1 Albumin 2.0 #L Digoxin Level 1.6 Test 09/16/16 05:28 09/16/16 12:40 Bedside Glucose 116 118 Medications Medications Current Medications Acetaminophen (Tylenol Tab) 650 mg Q6H PRN PO PAIN LEVEL 1-3 OR FEVER; Start at 18:30 Morphine Sulfate (morphine) 2 mg Q4H PRN IV SEVERE PAIN LEVEL 7-10; Start 09/05 at 18:30 Docusate Sodium (Colace) 100 mg Q12H PRN PO CONSTIPATION; Start 09/05/16 at 18: 30 Magnesium Hydroxide (Milk Of Mag) 30 ml DAILY PRN PO CONSTIPATION; Start at 18:30 Sodium Biphosphate/ Sodium Phosphate 133 ml 133 ml DAILY PRN [place] CONSTIPATION; Start 09/05/16 at 18:30 Piperacillin Sod/ Tazobactam Sod (Zosyn 2.25gm/ 50ml (Pmx)) 50 ml @ 100 mls/hr Q6 IVPB Last administered on 09/16/16t 12:41; Admin Dose 100 MLS/HR; Start 09/06 at 00:00 Vancomycin HCl (Vanco Iv Per Pharmacy) VANCOMYCIN PER PHARMACY NOTE XX ; Start 09/05/16 at 18:30 Hydralazine HCl (Apresoline) 10 mg Q6H PRN IV ELEVATED BLOOD PRESSURE; Start at 18:30 Nitroglycerin (Nitroglycerin (Sl Tab) 0.4 Mg) 1 tab Q5M PRN SL ANGINA; Start at 18:30 Miscellaneous Information 1 ea NOTE XX ; Start 09/05/16 at 19:00 Glucose (Glutose) 15 gm Q15M PRN PO DECREASED GLUCOSE; Start 09/05/16 at 19:00 Glucose (Glutose) 22.5 gm Q15M PRN PO DECREASED GLUCOSE; Start 09/05/16 at 19: 00 Dextrose (D50w Syringe) 25 ml Q15M PRN IV DECREASED GLUCOSE; Start 09/05/16 at 19:00 Dextrose (D50w Syringe) 50 ml Q15M PRN IV DECREASED GLUCOSE; Start 09/05/16 at 19:00 Glucagon (Glucagen) 1 mg Q15M PRN IM DECREASED GLUCOSE; Start 09/05/16 at 19:00 Glucose 15 gm 15 gm Q15M PRN BUCCAL DECREASED GLUCOSE; Start 09/05/16 at 19:00 Ondansetron HCl/ Sodium Chloride (Zofran Inj/NS) 54 ml @ 216 mls/hr Q6H PRN IV NAUSEA AND/OR VOMITING Last administered on 09/07/16 17:27; Admin Dose 216 MLS/HR; Start 09/06/16 at 10:30 Pantoprazole 40 mg 40 mg BID@06,18 IV Last administered on 09/16/16 05:02; Admin Dose 40 MG; Start 09/08/16 at 18:00 Metronidazole 100 ml @ 100 mls/hr Q8 IVPB Last administered on 09/16/16 14:39 ; Admin Dose 100 MLS/HR; Start 09/08/16 at 14:00 Fluconazole/ Sodium Chloride 50 ml @ 50 mls/hr Q24H IVPB Last administered on 15:57; Admin Dose 50 MLS/HR; Start 09/09/16 at 14:30 Phenylephrine HCl/ Sodium Chloride (Julio-Syneph/NS) 500 ml @ 18.75 mls/ hr TITRATE IV ; Start 09/10/16 at 10:00 Miscellaneous Information PLEASE CHANGE ALL IVPB F... DAILY XX Last administered on 09/15/16 08:50; Admin Dose 1 EA; Start 09/10/16 at 08:30 Vasopressin 60 unit/Sodium Chloride 103 ml @ 0 mls/hr Q12H IVPB ; Start at 09:00; Status Future Hold Total Parenteral Nutrition 1,000 ml @ 40 mls/hr Q24H IV Last administered on 16:53; Admin Dose 40 MLS/HR; Start 09/11/16 at 16:00 Fat Emulsion Intravenous 500 ml @ 20.833 mls/ hr Q24H IV Last administered on 09/15/16 16:53; Admin Dose 20.833 MLS/HR; Start 09/11/16 at 16:00 Vancomycin HCl 100 ml @ 100 mls/hr Q24H IVPB Last administered on 09/15/16 20: 02; Admin Dose 100 MLS/HR; Start 09/11/16 at 20:00 Norepinephrine 16 mg/Sodium Chloride 500 ml @ 0 mls/hr TITRATE IV Last administered on 09/15/16 11:53; Admin Dose 3.75 MLS/HR; Start 09/11/16 at 20:31 Fentanyl (Sublimaze) 100 ml @ 5 mls/hr TITRATE IV Last administered on 13:37; Admin Dose 10 MLS/HR; Start 09/13/16 at 07:45 Hydrocortisone (Solu-Cortef) 50 mg Q8 IV Last administered on 09/16/16 14:39; Admin Dose 50 MG; Start 09/13/16 at 14:00 Lorazepam 1 mg 1 mg Q4 PRN IV ANXIETY Last administered on 09/16/16 01:25; Admin Dose 1 MG; Start 09/14/16 at 06:30 Midazolam HCl (Versed) 50 ml @ 1 mls/hr TITRATE IV ; Start 09/14/16 at 10:30 Insulin Aspart (Novolog Insulin Pen) NOVOLOG *MILD* ALGORI... Q6 SC ; Start 09/16 at 00:00 Collagenase (Santyl) 1 applic DAILY TOP ; Start 09/17/16 at 09:00 [place] DE LEON NP Sep 16, 2016 16:45
[2016-09-16] MEDS: FAT EMULSION 20% 500 ML IV SCH (17:32)
[2016-09-16] MEDS: TPN 1,000 ML IV SCH (19:52)
[2016-09-17] VITALS (42 sets, daily range): BP systolic 76–125; BP diastolic 49–98; PULSE 84–118; RESP 11–38
[2016-09-17] MEDS: PIPER-TAZO 2.25 GM (PMX) 50 ML IVPB SCH ×4 (00:04→17:43)
[2016-09-17] MEDS: INSULIN ASPART [NOVOLOG] 3 ML PEN SC SCH ×4 (06:00→17:42)
[2016-09-17 06:04] LABS: ADD SCAN DIFF NO
[2016-09-17] MEDS: HYDROCORTISONE 100 MG INJ IV SCH ×3 (06:09→22:10)
[2016-09-17] MEDS: metroNIDAZOLE 500 MG/NS (PMX) 100 ML IVPB SCH ×3 (06:09→22:09)
[2016-09-17 06:10] LABS: ABNORMAL IP MESSAGE 1; BASOPHILS % 0.1 % (0.0-2.0); HEMATOCRIT 30.6 % (37.0-47.0); LYMPHOCYTES # 0.3 10^3/ul (0.8-2.9); LYMPHOCYTES % 2.5 % (15.0-51.0); MEAN CORPUSCULAR HEMOGLOBIN 29.1 pg (29.0-33.0); MEAN CORPUSCULAR HGB CONC 32.7 g/dl (32.0-37.0); MEAN PLATELET VOLUME 13.8 fl (7.4-10.4); MONOCYTE # 0.3 10^3/ul (0.3-0.9); MONOCYTES % 3.2 % (0.0-11.0); NEUTROPHIL # 9.4 10^3/ul (1.6-7.5); NUCLEATED RED BLOOD CELLS # 0.2 10^3/ul (0.0-0.0); NUCLEATED RED BLOOD CELLS% 1.6 /100WBC (0.0-0.0); PLATELET COUNT 46 10^3/UL (140-415); RED BLOOD COUNT 3.44 10^6/ul (4.20-5.40); RED CELL DISTRIBUTION WIDTH 20.1 % (11.5-14.5); WHITE BLOOD COUNT 10.2 10^3/ul (4.8-10.8)
[2016-09-17] MEDS: PANTOPRAZOLE 40 MG INJ IV SCH ×2 (06:10→17:42)
[2016-09-17] MEDS: FUROSEMIDE 20 MG INJ IV SCH ×2 (06:10→17:42)
[2016-09-17 06:35] LABS: CALCIUM 8.3 mg/dl (8.4-10.2); CREATININE 0.93 mg/dl (0.44-1.00); MAGNESIUM 2.1 mg/dl (1.7-2.5); POTASSIUM 3.7 mmol/L (3.5-5.1)
[2016-09-17] MEDS: POTASSIUM CHLORIDE 50 ML IVPB PRN (07:47)
[2016-09-17] MEDS: VANCOMYCIN 500MG/NS (PMX) 100 ML IVPB SCH (07:51)
[2016-09-17] MEDS: COLLAGENASE 30 GM TUBE TOP SCH (08:35)
[2016-09-17] MEDS: FENTAnyl (DRIP) 1000 mcg/100mL 100 ML IV SCH ×2 (08:49→16:10)
--- NOTE | 2016-09-17 09:21 | PN ---
DATE: 09/17/2016 SUBJECTIVE: The patient was critically on full ventilatory support. No other acute events noted. The patient responded well to diuretic therapy. OBJECTIVE: VITAL SIGNS: Blood pressure 110/69, respirations 11, pulse 99, temperature 98.6. INTAKE AND OUTPUT: The patient had 2 L in, 3 liters out. HEENT: Head is normocephalic. NECK: Supple. HEART: Regular rate. LUNGS: Show diminished breath sounds at base. ABDOMEN: Soft, nontender to palpation without rebound or guarding. EXTREMITIES: Negative for clubbing, cyanosis. Positive edema, positive diffuse anasarca. DERMATOLOGIC: No rashes. MUSCULOSKELETAL: No joint effusions. NEUROLOGIC: No change in exam. MEDICATIONS: The patient's medications have been reviewed. LABORATORY DATA: Shows white count 10.2, hemoglobin 10.0, hematocrit 30.6, platelet count is 46. S odium 135, potassium 2.7, chloride 104, BUN 29, creatinine 0.93. ASSESSMENT AND PLAN: 1. Nonoliguric acute kidney injury with unknown baseline creatinine. Etiology is secondary to hemo dynamic sepsis. The patient's renal function has improved. At this point, continue current treatme nt plan, supportive care, renally dose medications. 2. History of hydronephrosis, status post bilateral nephrostomy tubes. The patient is currently st able. Continue to monitor. 3. Hyponatremia. The patient's sodium levels have normalized. Continue free water restriction. 4. Volume overload. Etiology is secondary to capillary leak, third spacing, congestive heart failu re. The patient is currently on Lasix, tolerating well. Will continue. Will adjust diuretics as n eeded. 5. Ventilator dependent respiratory failure. Vent settings have been reviewed. ABG has been revie wed. Continue to monitor. 6. Sepsis, status post shock. The patient is currently off pressors. Continue current antibiotic regimen. 7. Perforated bowel. The patient has been seen by general surgery. No plan for intervention at is time. Continue supportive care. 8. Elevated troponin, possible non-ST elevation myocardial infarction type 2. Continue medical man agement. 9. History of metastatic cervical cancer. Continue to monitor. 10. History of cardiomyopathy. Continue current medical management. 11. Anemia with possible gastrointestinal bleed. Continue to monitor H and H levels. Follow up [facility] [place] [facility]. 12. Nutrition. Continue total parenteral nutrition. Dictated By: URIEL RAMESH/EHSAN Conf#: [id number] DID#: [id number]
--- NOTE | 2016-09-17 10:20 | RADRPT ---
PROCEDURE: XR Chest. CLINICAL INDICATION: intubated TECHNIQUE: Single frontal view of the chest was obtained. COMPARISON: Chest x-ray from 09/13/2016 FINDINGS: The endotracheal tube, enteric tube, and right-sided Port-A-Cath are unchanged in position. The heart and mediastinum are within normal limits. There are stable low lung volumes with stable mild prominence of interstitial markings due to conges tive changes and / or vascular crowding. No definite focal infiltrates are identified. There is no significant pleural effusion or pneumothorax. IMPRESSION: No significant interval change compared to the prior chest x-ray from 09/13/2016. RPTAT: EE Physician Daniella Date Time Electronically viewed and signed by Physician Daniella on 09/17/2016 10:19 /
--- NOTE | 2016-09-17 10:29 | CONS ---
Date/Time of Note Date/Time of Note DATE: 09/17/16 TIME: 10:26 Assessment/Plan Assessment/Plan Additional Assessment/Plan Chest x-ray was reviewed from today which is essentially clear. Endotracheal tube is at an adequate level. Next Patient currently on CPAP mode. Patient off fentanyl drip. Assessment recommendations; 1. Patient admitted for bowel perforation with severe sepsis. 2. History of bilateral nephrostomy tube placement. 3. Widely metastatic cervical cancer with the very large pelvic mass. 4. Patient deemed too high risk of a surgical candidate for laparotomy. 5. Anemia. 6. Thrombocytopenia. However no overt bleeding noted. 7. Prior history of partial colectomy. Continue current treatment. Patient has been switched back to assist control mode. She will be extubated again. Prognosis still remains very poor. Consultation Date/Type/Reason Admit Date/Time September 05, 2016 at 16:23 Initial Consult Date 09/06/16 Type of Consultation: Pulmonary/critical care Referring Provider: ONEIDA COLEMAN 24 HR Interval Summary Free Text/Dictation Patient condition is slightly improved. Patient has been put on CPAP mode this morning but she is not tolerating that well. Getting progressively more tachypneic. However is completely awake and alert. General exam; elderly woman, orally intubated, currently in no distress. Exam/Review of Systems Vital Signs Vitals Vital Signs Date Time Temp Pulse Resp B/P Pulse Ox O2 Delivery O2 Flow Rate FiO2 09/17/16 08:00 96.6 88 16 116/70 100 Mechanical Ventilator 09/17/16 08:00 30 Intake and Output 09/16/16 09/16/16 09/17/16 15:00 23:00 07:00 Intake Total 666.664 ml 866.664 ml 756.664 ml Output Total 415 ml 1050 ml 1600 ml Balance 251.664 ml -183.336 ml -843.336 ml Exam HEENT examination; supple neck, no JVD. No lymphadenopathy. Midline trachea. No thyromegaly. Orally intubated. Patient has fair dentition. Pupils are small bilaterally. Chest examination; clear to auscultation. S1-S2 audible, no murmurs. Regular rhythm. Abdomen examination; soft, distended. Bowel sounds are present. Bilateral nephrostomy tubes are present. Draining clear urine. There is a well-healed infraumbilical scar. Extremity exam; decreased anasarca. CAMPAIGN MARKETING SPECIALIST examination; she is awake and alert and answers questions appropriately by eye blinking and head nodding. Results Result Diagram: 09/17/16 0500 09/17/16 0500 Results 24 hrs Laboratory Tests Test 09/16/16 12:40 09/16/16 18:17 09/17/16 00:02 09/17/16 05:00 Bedside Glucose 118 121 125 White Blood Count 10.2 Red Blood Count 3.44 L Hemoglobin 10.0 L Hematocrit 30.6 L Mean Corpuscular Volume 89.0 Mean Corpuscular Hemoglobin 29.1 Mean Corpuscular Hemoglobin Concent 32.7 Red Cell Distribution Width 20.1 H Platelet Count 46 L Mean Platelet Volume 13.8 H Neutrophils % 92.0 H Lymphocytes % 2.5 L Monocytes % 3.2 Eosinophils % 0.0 Basophils % 0.1 Nucleated Red Blood Cells % 1.6 H Neutrophils # 9.4 H Lymphocytes # 0.3 L Monocytes # 0.3 Eosinophils # 0.0 Basophils # 0.0 Nucleated Red Blood Cells # 0.2 H Sodium Level 135 Potassium Level 3.7 Chloride Level 104 Carbon Dioxide Level 24 Anion Gap 11 Blood Urea Nitrogen 29 H Creatinine 0.93 Glucose Level 120 Calcium Level 8.3 L Phosphorus Level 4.0 Magnesium Level 2.1 Test 09/17/16 06:20 Bedside Glucose 123 Medications Medications Current Medications Acetaminophen (Tylenol Tab) 650 mg Q6H PRN PO PAIN LEVEL 1-3 OR FEVER; Start at 18:30 Morphine Sulfate (morphine) 2 mg Q4H PRN IV SEVERE PAIN LEVEL 7-10; Start 09/05 at 18:30 Docusate Sodium (Colace) 100 mg Q12H PRN PO CONSTIPATION; Start 09/05/16 at 18: 30 Magnesium Hydroxide (Milk Of Mag) 30 ml DAILY PRN PO CONSTIPATION; Start at 18:30 Sodium Biphosphate/ Sodium Phosphate 133 ml 133 ml DAILY PRN MD CONSTIPATION; Start 09/05/16 at 18:30 Piperacillin Sod/ Tazobactam Sod (Zosyn 2.25gm/ 50ml (Pmx)) 50 ml @ 100 mls/hr Q6 IVPB Last administered on 09/17/16t 06:09; Admin Dose 100 MLS/HR; Start 09/06 at 00:00 Vancomycin HCl (Vanco Iv Per Pharmacy) VANCOMYCIN PER PHARMACY NOTE XX ; Start 09/05/16 at 18:30 Hydralazine HCl (Apresoline) 10 mg Q6H PRN IV ELEVATED BLOOD PRESSURE; Start at 18:30 Nitroglycerin (Nitroglycerin (Sl Tab) 0.4 Mg) 1 tab Q5M PRN SL ANGINA; Start at 18:30 Miscellaneous Information 1 ea NOTE XX ; Start 09/05/16 at 19:00 Glucose (Glutose) 15 gm Q15M PRN PO DECREASED GLUCOSE; Start 09/05/16 at 19:00 Glucose (Glutose) 22.5 gm Q15M PRN PO DECREASED GLUCOSE; Start 09/05/16 at 19: 00 Dextrose (D50w Syringe) 25 ml Q15M PRN IV DECREASED GLUCOSE; Start 09/05/16 at 19:00 Dextrose (D50w Syringe) 50 ml Q15M PRN IV DECREASED GLUCOSE; Start 09/05/16 at 19:00 Glucagon (Glucagen) 1 mg Q15M PRN IM DECREASED GLUCOSE; Start 09/05/16 at 19:00 Glucose 15 gm 15 gm Q15M PRN BUCCAL DECREASED GLUCOSE; Start 09/05/16 at 19:00 Ondansetron HCl/ Sodium Chloride (Zofran Inj/NS) 54 ml @ 216 mls/hr Q6H PRN IV NAUSEA AND/OR VOMITING Last administered on 09/07/16 17:27; Admin Dose 216 MLS/HR; Start 09/06/16 at 10:30 Pantoprazole 40 mg 40 mg BID@06,18 IV Last administered on 09/17/16 06:10; Admin Dose 40 MG; Start 09/08/16 at 18:00 Metronidazole 100 ml @ 100 mls/hr Q8 IVPB Last administered on 09/17/16 06:09 ; Admin Dose 100 MLS/HR; Start 09/08/16 at 14:00 Fluconazole/ Sodium Chloride 50 ml @ 50 mls/hr Q24H IVPB Last administered on 15:57; Admin Dose 50 MLS/HR; Start 09/09/16 at 14:30 Phenylephrine HCl/ Sodium Chloride (Julio-Syneph/NS) 500 ml @ 18.75 mls/ hr TITRATE IV ; Start 09/10/16 at 10:00 Miscellaneous Information PLEASE CHANGE ALL IVPB F... DAILY XX Last administered on 09/15/16 08:50; Admin Dose 1 EA; Start 09/10/16 at 08:30 Vasopressin 60 unit/Sodium Chloride 103 ml @ 0 mls/hr Q12H IVPB ; Start at 09:00; Status Future Hold Total Parenteral Nutrition 1,000 ml @ 40 mls/hr Q24H IV Last administered on 19:52; Admin Dose 40 MLS/HR; Start 09/11/16 at 16:00 Fat Emulsion Intravenous 500 ml @ 20.833 mls/ hr Q24H IV Last administered on 09/16/16 17:32; Admin Dose 20.833 MLS/HR; Start 09/11/16 at 16:00 Norepinephrine 16 mg/Sodium Chloride 500 ml @ 0 mls/hr TITRATE IV Last administered on 09/15/16 11:53; Admin Dose 3.75 MLS/HR; Start 09/11/16 at 20:31 Fentanyl (Sublimaze) 100 ml @ 5 mls/hr TITRATE IV Last administered on 08:49; Admin Dose 10 MLS/HR; Start 09/13/16 at 07:45 Hydrocortisone (Solu-Cortef) 50 mg Q8 IV Last administered on 09/17/16 06:09; Admin Dose 50 MG; Start 09/13/16 at 14:00 Lorazepam 1 mg 1 mg Q4 PRN IV ANXIETY Last administered on 09/16/16 22:58; Admin Dose 1 MG; Start 09/14/16 at 06:30 Midazolam HCl (Versed) 50 ml @ 1 mls/hr TITRATE IV ; Start 09/14/16 at 10:30 Insulin Aspart (Novolog Insulin Pen) NOVOLOG *MILD* ALGORI... Q6 SC ; Start 09/16 at 00:00 Collagenase 1 applic 1 applic DAILY TOP Last administered on 09/17/16 08:35; Admin Dose 1 APPLIC; Start 09/17/16 at 09:00 Vancomycin HCl (Vancocin) 100 ml @ 100 mls/hr Q36H IVPB Last administered on 07:51; Admin Dose 100 MLS/HR; Start 09/17/16 at 08:00 SKYLER ESTEVES Sep 17, 2016 10:29
[2016-09-17] MEDS: LORAZEPAM 2 MG INJ IV PRN (11:43)
--- NOTE | 2016-09-17 12:24 | PN ---
Date/Time of Note Date/Time of Note DATE: 09/16/16 TIME: 12:22 Assessment/Plan Lines/Catheters IV Catheter Type (from [facility]): PICC Line Fleming in Place (from [facility]): No Assessment/Plan Chief Complaint/Hosp Course 1. Septic shock, multifactorial due to presenting infection plus sigmoid perforation after colonoscopy. Contained. CT noted. Improving. -abx -judicious fluid management -supportive measures 2. Metastatic cervical cancer, off treatment from [facility] since they deem it to be too dangerous for her as above. -onc following 3. Anemia, worsening. ? source. CT noted. -tx prn 4. Significant hypoalbuminemia is multifactorial; however, she is not able to tolerate feeds at this time. 5. Probable hydronephrosis with obstruction. Currently with bilateral nephrostomy tubes. Continue tubes to drainage and monitor closely. 6. Electrolyte abnormalities. Please correct with judicious fluid management and replacement as needed. 7. Decubitus ulceration. Continue offloading, local care and eventually, if patient survives through this, nutritional optimization and vitamin replenishment. Thank you Late entry 09/16 Problems: Subjective 24 Hr Interval Summary No f/c. No cough. No sz. No rash. No vomiting. Bloated. Leukocytosis improving. Hg improved s/p transfusions. No bleeding. Exam/Review of Systems Vital Signs Vitals Vital Signs Date Time Temp Pulse Resp B/P Pulse Ox O2 Delivery O2 Flow Rate FiO2 09/17/16 12:00 104 09/17/16 11:00 27 111/98 98 CPAP 09/17/16 10:00 97.0 09/17/16 08:00 30 Intake and Output 09/16/16 09/16/16 09/17/16 15:00 23:00 07:00 Intake Total 666.664 ml 866.664 ml 756.664 ml Output Total 415 ml 1050 ml 1600 ml Balance 251.664 ml -183.336 ml -843.336 ml Exam Free Text/Dictation GENERAL: Intubated, obese HEENT: Pupils are sluggish. No scleral icterus. Mucous membranes are moist. NECK: JVD. No crepitus. Trachea midline. PULMONARY: Minimally coarse. CARDIAC: S1, S2 and tachycardic. ABDOMEN: Distended and taut EXTREMITIES: Minimal edema. VASCULAR: Capillary refill is over 3 seconds. NEUROLOGIC: Not able to follow commands. LYMPHATICS: No inguinal lymphadenopathy. Results Result Diagram: 09/17/16 0500 09/17/16 0500 DANIEL ALEXANDRE MD Sep 17, 2016 12:24
--- NOTE | 2016-09-17 12:24 | CONS ---
Date/Time of Note Date/Time of Note DATE: 09/17/16 TIME: 12:22 Assessment/Plan Assessment/Plan Chief Complaint/Hosp Course SUBJECTIVE: No events overnight. Off Levophed, tolerates Cpap, no fevers INDWELLINGS: Endotracheal tube, NG tube, PICC line, placed 09/11/2016, right chest Port-A-Cath, B nephrostomies. ANTIMICROBIALS: The patient is on: 1. IV vancomycin. 2. Fluconazole. 4. Flagyl. 5. Zosyn. PHYSICAL EXAMINATION: GENERAL: Chronically ill-appearing, elderly woman, in no distress. HEENT: Head atraumatic, normocephalic. Sclerae anicteric. Buccal mucosa dry. NECK: Supple, trachea midline. CHEST: Chest rise is symmetrical. Breath sounds diminished to the bases. HEART: S1, S2. ABDOMEN: Soft, bowel tones present. Abdomen distended. Bowel tones hypoactive. EXTREMITIES: With bilateral edema. ASSESSMENT: 1. Sepsis ==> resolving, s/p shock and multisystem organ failure. 2. Large pelvic mass/ metastatic cervical cancer 3. Proximal sigmoid colon obstruction with perforation. 4. Urinary tract infection, per urinalysis. 5. Acute renal and respiratory failure. PLAN: Hemodynamically stable, tolerates Cpap, WBC decreasing, continue broad- spectrum antibiotics [facility] staff Problems: Consultation Date/Type/Reason Admit Date/Time September 05, 2016 at 16:23 Initial Consult Date 09/06/16 Type of Consultation: id Referring Provider: ONEIDA COLEMAN Exam/Review of Systems Vital Signs Vitals Vital Signs Date Time Temp Pulse Resp B/P Pulse Ox O2 Delivery O2 Flow Rate FiO2 09/17/16 12:00 104 09/17/16 11:00 27 111/98 98 CPAP 09/17/16 10:00 97.0 09/17/16 08:00 30 Intake and Output 09/16/16 09/16/16 09/17/16 15:00 23:00 07:00 Intake Total 666.664 ml 866.664 ml 756.664 ml Output Total 415 ml 1050 ml 1600 ml Balance 251.664 ml -183.336 ml -843.336 ml Results Result Diagram: 09/17/16 0500 09/17/16 0500 Results 24 hrs Laboratory Tests Test 09/16/16 12:40 09/16/16 18:17 09/17/16 00:02 09/17/16 05:00 Bedside Glucose 118 121 125 White Blood Count 10.2 Red Blood Count 3.44 L Hemoglobin 10.0 L Hematocrit 30.6 L Mean Corpuscular Volume 89.0 Mean Corpuscular Hemoglobin 29.1 Mean Corpuscular Hemoglobin Concent 32.7 Red Cell Distribution Width 20.1 H Platelet Count 46 L Mean Platelet Volume 13.8 H Neutrophils % 92.0 H Lymphocytes % 2.5 L Monocytes % 3.2 Eosinophils % 0.0 Basophils % 0.1 Nucleated Red Blood Cells % 1.6 H Neutrophils # 9.4 H Lymphocytes # 0.3 L Monocytes # 0.3 Eosinophils # 0.0 Basophils # 0.0 Nucleated Red Blood Cells # 0.2 H Sodium Level 135 Potassium Level 3.7 Chloride Level 104 Carbon Dioxide Level 24 Anion Gap 11 Blood Urea Nitrogen 29 H Creatinine 0.93 Glucose Level 120 Calcium Level 8.3 L Phosphorus Level 4.0 Magnesium Level 2.1 Test 09/17/16 06:20 09/17/16 11:38 Bedside Glucose 123 133 Medications Medications Current Medications Acetaminophen (Tylenol Tab) 650 mg Q6H PRN PO PAIN LEVEL 1-3 OR FEVER; Start at 18:30 Morphine Sulfate (morphine) 2 mg Q4H PRN IV SEVERE PAIN LEVEL 7-10; Start 09/05 at 18:30 Docusate Sodium (Colace) 100 mg Q12H PRN PO CONSTIPATION; Start 09/05/16 at 18: 30 Magnesium Hydroxide (Milk Of Mag) 30 ml DAILY PRN PO CONSTIPATION; Start at 18:30 Sodium Biphosphate/ Sodium Phosphate 133 ml 133 ml DAILY PRN [place] CONSTIPATION; Start 09/05/16 at 18:30 Piperacillin Sod/ Tazobactam Sod (Zosyn 2.25gm/ 50ml (Pmx)) 50 ml @ 100 mls/hr Q6 IVPB Last administered on 09/17/16t 11:35; Admin Dose 100 MLS/HR; Start 09/06 at 00:00 Vancomycin HCl (Vanco Iv Per Pharmacy) VANCOMYCIN PER PHARMACY NOTE XX ; Start 09/05/16 at 18:30 Hydralazine HCl (Apresoline) 10 mg Q6H PRN IV ELEVATED BLOOD PRESSURE; Start at 18:30 Nitroglycerin (Nitroglycerin (Sl Tab) 0.4 Mg) 1 tab Q5M PRN SL ANGINA; Start at 18:30 Miscellaneous Information 1 ea NOTE XX ; Start 09/05/16 at 19:00 Glucose (Glutose) 15 gm Q15M PRN PO DECREASED GLUCOSE; Start 09/05/16 at 19:00 Glucose (Glutose) 22.5 gm Q15M PRN PO DECREASED GLUCOSE; Start 09/05/16 at 19: 00 Dextrose (D50w Syringe) 25 ml Q15M PRN IV DECREASED GLUCOSE; Start 09/05/16 at 19:00 Dextrose (D50w Syringe) 50 ml Q15M PRN IV DECREASED GLUCOSE; Start 09/05/16 at 19:00 Glucagon (Glucagen) 1 mg Q15M PRN IM DECREASED GLUCOSE; Start 09/05/16 at 19:00 Glucose 15 gm 15 gm Q15M PRN BUCCAL DECREASED GLUCOSE; Start 09/05/16 at 19:00 Ondansetron HCl/ Sodium Chloride (Zofran Inj/NS) 54 ml @ 216 mls/hr Q6H PRN IV NAUSEA AND/OR VOMITING Last administered on 09/07/16 17:27; Admin Dose 216 MLS/HR; Start 09/06/16 at 10:30 Pantoprazole 40 mg 40 mg BID@06,18 IV Last administered on 09/17/16 06:10; Admin Dose 40 MG; Start 09/08/16 at 18:00 Metronidazole 100 ml @ 100 mls/hr Q8 IVPB Last administered on 09/17/16 06:09 ; Admin Dose 100 MLS/HR; Start 09/08/16 at 14:00 Fluconazole/ Sodium Chloride 50 ml @ 50 mls/hr Q24H IVPB Last administered on 15:57; Admin Dose 50 MLS/HR; Start 09/09/16 at 14:30 Phenylephrine HCl/ Sodium Chloride (Julio-Syneph/NS) 500 ml @ 18.75 mls/ hr TITRATE IV ; Start 09/10/16 at 10:00 Miscellaneous Information PLEASE CHANGE ALL IVPB F... DAILY XX Last administered on 09/15/16 08:50; Admin Dose 1 EA; Start 09/10/16 at 08:30 Vasopressin 60 unit/Sodium Chloride 103 ml @ 0 mls/hr Q12H IVPB ; Start at 09:00; Status Future Hold Total Parenteral Nutrition 1,000 ml @ 40 mls/hr Q24H IV Last administered on 19:52; Admin Dose 40 MLS/HR; Start 09/11/16 at 16:00 Fat Emulsion Intravenous 500 ml @ 20.833 mls/ hr Q24H IV Last administered on 09/16/16 17:32; Admin Dose 20.833 MLS/HR; Start 09/11/16 at 16:00 Norepinephrine 16 mg/Sodium Chloride 500 ml @ 0 mls/hr TITRATE IV Last administered on 09/15/16 11:53; Admin Dose 3.75 MLS/HR; Start 09/11/16 at 20:31 Fentanyl (Sublimaze) 100 ml @ 5 mls/hr TITRATE IV Last administered on 08:49; Admin Dose 10 MLS/HR; Start 09/13/16 at 07:45 Hydrocortisone (Solu-Cortef) 50 mg Q8 IV Last administered on 09/17/16 06:09; Admin Dose 50 MG; Start 09/13/16 at 14:00 Lorazepam 1 mg 1 mg Q4 PRN IV ANXIETY Last administered on 09/17/16 11:43; Admin Dose 1 MG; Start 09/14/16 at 06:30 Midazolam HCl (Versed) 50 ml @ 1 mls/hr TITRATE IV ; Start 09/14/16 at 10:30 Insulin Aspart (Novolog Insulin Pen) NOVOLOG *MILD* ALGORI... Q6 SC ; Start 09/16 at 00:00 Collagenase 1 applic 1 applic DAILY TOP Last administered on 09/17/16 08:35; Admin Dose 1 APPLIC; Start 09/17/16 at 09:00 Vancomycin HCl (Vancocin) 100 ml @ 100 mls/hr Q36H IVPB Last administered on 07:51; Admin Dose 100 MLS/HR; Start 09/17/16 at 08:00 BIN MITTAL NP Sep 17, 2016 12:24
--- NOTE | 2016-09-17 12:25 | PN ---
Date/Time of Note Date/Time of Note DATE: 09/17/16 TIME: 12:24 Assessment/Plan Lines/Catheters IV Catheter Type (from [facility]): PICC Line Fleming in Place (from [facility]): No Assessment/Plan Chief Complaint/Hosp Course 1. Septic shock, multifactorial due to presenting infection plus sigmoid perforation after colonoscopy. Contained. CT noted. Improved -abx -judicious fluid management -supportive measures 2. Metastatic cervical cancer, off treatment from [facility] since they deem it to be too dangerous for her as above. -onc following -consider line pilot/onc 3. Anemia, worsening. ? source. CT noted. -tx prn 4. Significant hypoalbuminemia is multifactorial; however, she is not able to tolerate feeds at this time. 5. Probable hydronephrosis with obstruction. Currently with bilateral nephrostomy tubes. Continue tubes to drainage and monitor closely. 6. Electrolyte abnormalities. Please correct with judicious fluid management and replacement as needed. 7. Decubitus ulceration. Continue offloading, local care and eventually, if patient survives through this, nutritional optimization and vitamin replenishment. Thank you, Problems: Subjective 24 Hr Interval Summary No f/c. No cough. No sz. No rash. No vomiting. Bloated. Leukocytosis normalized. Hg improved s/p transfusions. No bleeding. Exam/Review of Systems Vital Signs Vitals Vital Signs Date Time Temp Pulse Resp B/P Pulse Ox O2 Delivery O2 Flow Rate FiO2 09/17/16 12:00 104 09/17/16 11:00 27 111/98 98 CPAP 09/17/16 10:00 97.0 09/17/16 08:00 30 Intake and Output 09/16/16 09/16/16 09/17/16 15:00 23:00 07:00 Intake Total 666.664 ml 866.664 ml 756.664 ml Output Total 415 ml 1050 ml 1600 ml Balance 251.664 ml -183.336 ml -843.336 ml Exam Free Text/Dictation GENERAL: Intubated, obese HEENT: Pupils are sluggish. No scleral icterus. Mucous membranes are moist. NECK: JVD. No crepitus. Trachea midline. PULMONARY: Minimally coarse. CARDIAC: S1, S2 and tachycardic. ABDOMEN: Distended and taut EXTREMITIES: Minimal edema. VASCULAR: Capillary refill is over 3 seconds. NEUROLOGIC: Not able to follow commands. LYMPHATICS: No inguinal lymphadenopathy. Results Result Diagram: 09/17/16 0500 09/17/16 0500 DANIEL ALEXANDRE MD Sep 17, 2016 12:25
--- NOTE | 2016-09-17 13:39 | PN ---
DATE: 09/12/2016 This is a followup progress note with family members of Ms. Jocelyn Dickinson. From a palliative care st andpoint in reviewing the patient's medical records, there has been no major change in her overall c linical condition. I have brought family members up to date with this information. We have explore d their hopes and their desires for ongoing level of care, which they would prefer to continue with all treatment ahead. They understand that surgical considerations are contraindicated. At this poi nt, we need to address the acceptable quality of life and the fact that Ms. Dickinson may need to have t gaby eventually. Her date of admission was 09/05/2016. Goals of care will be discussed in the next 2 days with family members. Psychosocial issues will be discussed. I did address the code status with family members last time we met. At that time they did not want to make any definitive decisio ns. I will follow up in the next 3 days with further discussion. Dictated By: MORIAH GARRIDO MD, LP/EHSAN Conf#: [id number] DID#: [id number]
--- NOTE | 2016-09-17 14:26 | PN ---
DATE: 09/17/2016 PALLIATIVE CARE FOLLOWUP NOTE I had a conversation with patient's son today. His sister who is the primary decision maker has xavier e back to [place]. Third sibling is still available here in the [place] area. I have asked case man wade to schedule a family conference once again this week. The patient has failed weaning trial, and my impression is that she will not be able to be extubated. Every day is less of a day, she is becoming progressively more weak with underlying malignancy. This has been explained briefly to th e patient's son. Unfortunately a decision will have to be made insofar as trach'ing her or changing her code status. I will follow up again daily. Dictated By: MORIAH GARRIDO MD, LP/EHSAN Conf#: [id number] DID#: [id number]
[2016-09-17] MEDS: FLUCONAZOLE 100 MG/NS (PMX) 50 ML IVPB SCH (14:41)
--- NOTE | 2016-09-17 14:44 | PN ---
Date/Time of Note Date/Time of Note DATE: 09/17/16 TIME: 14:41 Assessment/Plan VTE Prophylaxis VTE Prophylaxis Intervention: contraindicated Lines/Catheters IV Catheter Type (from Nrs): PICC Line Central line still needed: Yes Urinary Cath still in place: No Assessment/Plan Assessment/Plan Anemia/no overt GI bleeding Rule out intra-abdominal bleeding versus hemolysis versus GI bleeding with slow transit Post colonoscopy perforated viscus * Large pelvic mass invading colon wall site of perforation * Contrast leakage to pelvic area * ?Contained perforation as no evidence of generalized peritonitis Sepsis Metastatic cervical CA/Adrenal/brain History of cervical cancer S/P nephrostomy tube bilateral EF 20% Plan continue present management Case was discussed with Dr Durant Subjective 24 Hr Interval Summary Free Text/Dictation * Course reviewed with RN * Patient seen and examined * Still on pressors,orally intubated Exam/Review of Systems Vital Signs Vitals Vital Signs Date Time Temp Pulse Resp B/P Pulse Ox O2 Delivery O2 Flow Rate FiO2 09/17/16 14:02 98 19 81/49 100 Mechanical Ventilator 09/17/16 13:00 97.0 09/17/16 10:25 30 Intake and Output 09/16/16 09/16/16 09/17/16 15:00 23:00 07:00 Intake Total 666.664 ml 866.664 ml 756.664 ml Output Total 415 ml 1050 ml 1600 ml Balance 251.664 ml -183.336 ml -843.336 ml Exam Constitutional: frail ENMT: intubated Neck: supple Respiratory: crackles/rales, diminished breath sounds, intercostal retraction Cardiovascular: nl pulses, regular rate and rhythm Gastrointestinal: bowel sounds, distended, firm Musculoskeletal: muscle weakness Extremities: edema Results Result Diagram: 09/17/16 0500 09/17/16 0500 Results 24 hrs Laboratory Tests Test 09/16/16 18:17 09/17/16 00:02 09/17/16 05:00 09/17/16 06:20 Bedside Glucose 121 125 123 White Blood Count 10.2 Red Blood Count 3.44 L Hemoglobin 10.0 L Hematocrit 30.6 L Mean Corpuscular Volume 89.0 Mean Corpuscular Hemoglobin 29.1 Mean Corpuscular Hemoglobin Concent 32.7 Red Cell Distribution Width 20.1 H Platelet Count 46 L Mean Platelet Volume 13.8 H Neutrophils % 92.0 H Lymphocytes % 2.5 L Monocytes % 3.2 Eosinophils % 0.0 Basophils % 0.1 Nucleated Red Blood Cells % 1.6 H Neutrophils # 9.4 H Lymphocytes # 0.3 L Monocytes # 0.3 Eosinophils # 0.0 Basophils # 0.0 Nucleated Red Blood Cells # 0.2 H Sodium Level 135 Potassium Level 3.7 Chloride Level 104 Carbon Dioxide Level 24 Anion Gap 11 Blood Urea Nitrogen 29 H Creatinine 0.93 Glucose Level 120 Calcium Level 8.3 L Phosphorus Level 4.0 Magnesium Level 2.1 Test 09/17/16 11:38 Bedside Glucose 133 Medications Medications Current Medications Acetaminophen (Tylenol Tab) 650 mg Q6H PRN PO PAIN LEVEL 1-3 OR FEVER; Start at 18:30 Morphine Sulfate (morphine) 2 mg Q4H PRN IV SEVERE PAIN LEVEL 7-10; Start 09/05 at 18:30 Docusate Sodium (Colace) 100 mg Q12H PRN PO CONSTIPATION; Start 09/05/16 at 18: 30 Magnesium Hydroxide (Milk Of Mag) 30 ml DAILY PRN PO CONSTIPATION; Start at 18:30 Sodium Biphosphate/ Sodium Phosphate 133 ml 133 ml DAILY PRN MS CONSTIPATION; Start 09/05/16 at 18:30 Piperacillin Sod/ Tazobactam Sod (Zosyn 2.25gm/ 50ml (Pmx)) 50 ml @ 100 mls/hr Q6 IVPB Last administered on 09/17/16t 11:35; Admin Dose 100 MLS/HR; Start 09/06 at 00:00 Vancomycin HCl (Vanco Iv Per Pharmacy) VANCOMYCIN PER PHARMACY NOTE XX ; Start 09/05/16 at 18:30 Hydralazine HCl (Apresoline) 10 mg Q6H PRN IV ELEVATED BLOOD PRESSURE; Start at 18:30 Nitroglycerin (Nitroglycerin (Sl Tab) 0.4 Mg) 1 tab Q5M PRN SL ANGINA; Start at 18:30 Miscellaneous Information 1 ea NOTE XX ; Start 09/05/16 at 19:00 Glucose (Glutose) 15 gm Q15M PRN PO DECREASED GLUCOSE; Start 09/05/16 at 19:00 Glucose (Glutose) 22.5 gm Q15M PRN PO DECREASED GLUCOSE; Start 09/05/16 at 19: 00 Dextrose (D50w Syringe) 25 ml Q15M PRN IV DECREASED GLUCOSE; Start 09/05/16 at 19:00 Dextrose (D50w Syringe) 50 ml Q15M PRN IV DECREASED GLUCOSE; Start 09/05/16 at 19:00 Glucagon (Glucagen) 1 mg Q15M PRN IM DECREASED GLUCOSE; Start 09/05/16 at 19:00 Glucose 15 gm 15 gm Q15M PRN BUCCAL DECREASED GLUCOSE; Start 09/05/16 at 19:00 Ondansetron HCl/ Sodium Chloride (Zofran Inj/NS) 54 ml @ 216 mls/hr Q6H PRN IV NAUSEA AND/OR VOMITING Last administered on 09/07/16 17:27; Admin Dose 216 MLS/HR; Start 09/06/16 at 10:30 Pantoprazole 40 mg 40 mg BID@06,18 IV Last administered on 09/17/16 06:10; Admin Dose 40 MG; Start 09/08/16 at 18:00 Metronidazole 100 ml @ 100 mls/hr Q8 IVPB Last administered on 09/17/16 13:21 ; Admin Dose 100 MLS/HR; Start 09/08/16 at 14:00 Fluconazole/ Sodium Chloride 50 ml @ 50 mls/hr Q24H IVPB Last administered on 15:57; Admin Dose 50 MLS/HR; Start 09/09/16 at 14:30 Phenylephrine HCl/ Sodium Chloride (Julio-Syneph/NS) 500 ml @ 18.75 mls/ hr TITRATE IV ; Start 09/10/16 at 10:00 Miscellaneous Information PLEASE CHANGE ALL IVPB F... DAILY XX Last administered on 09/15/16 08:50; Admin Dose 1 EA; Start 09/10/16 at 08:30 Vasopressin 60 unit/Sodium Chloride 103 ml @ 0 mls/hr Q12H IVPB ; Start at 09:00; Status Future Hold Total Parenteral Nutrition 1,000 ml @ 40 mls/hr Q24H IV Last administered on 19:52; Admin Dose 40 MLS/HR; Start 09/11/16 at 16:00 Fat Emulsion Intravenous 500 ml @ 20.833 mls/ hr Q24H IV Last administered on 09/16/16 17:32; Admin Dose 20.833 MLS/HR; Start 09/11/16 at 16:00 Norepinephrine 16 mg/Sodium Chloride 500 ml @ 0 mls/hr TITRATE IV Last administered on 09/15/16 11:53; Admin Dose 3.75 MLS/HR; Start 09/11/16 at 20:31 Fentanyl (Sublimaze) 100 ml @ 5 mls/hr TITRATE IV Last administered on 08:49; Admin Dose 10 MLS/HR; Start 09/13/16 at 07:45 Hydrocortisone (Solu-Cortef) 50 mg Q8 IV Last administered on 09/17/16 13:21; Admin Dose 50 MG; Start 09/13/16 at 14:00 Lorazepam 1 mg 1 mg Q4 PRN IV ANXIETY Last administered on 09/17/16 11:43; Admin Dose 1 MG; Start 09/14/16 at 06:30 Midazolam HCl (Versed) 50 ml @ 1 mls/hr TITRATE IV ; Start 09/14/16 at 10:30 Insulin Aspart (Novolog Insulin Pen) NOVOLOG *MILD* ALGORI... Q6 SC ; Start 09/16 at 00:00 Collagenase 1 applic 1 applic DAILY TOP Last administered on 09/17/16 08:35; Admin Dose 1 APPLIC; Start 09/17/16 at 09:00 Vancomycin HCl (Vancocin) 100 ml @ 100 mls/hr Q36H IVPB Last administered on 07:51; Admin Dose 100 MLS/HR; Start 09/17/16 at 08:00 [place] DE LEON NP Sep 17, 2016 14:44
[2016-09-17] MEDS: FAT EMULSION 20% 500 ML IV SCH (16:11)
[2016-09-17] MEDS: TPN 1,000 ML IV SCH ×2 (16:11→22:10)
--- NOTE | 2016-09-17 17:15 | PN ---
Date/Time of Note Date/Time of Note DATE: 09/17/16 TIME: 17:14 Assessment/Plan VTE Prophylaxis VTE Prophylaxis Intervention: SCD's Lines/Catheters Urinary Cath still in place: No Assessment/Plan Chief Complaint/Hosp Course 1. Severe systemic systemic inflammatory response syndrome with shock in patient with known metastatic cancer likely due to sepsis 2. Post colonoscopy perforated viscus: improved Large pelvic mass invading colon wall site of perforation Contrast leakage to pelvic area: not seen on last CT Contained perforation as no evidence of generalized peritonitis 3. 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 Chronic ureteral obstruction from #3 s/p nephrostomy tube bilateral 5. Severe cardiomyopathy with EF 20% thought to be likely ischemic 6. Occult GI bleed secondary to metastatic mass 7. Recurrent anemia requiring transfusion secondary to the above 8. Acute respiratory failure secondary to profound septic shock 9. Underlying abdominal ileus secondary to an obstructing sigmoid colon mass with patient now on TPN 10. Severe LE edema and anasarca 2/2 mass effect PLAN: Continue intensive care unit monitoring. Continue to wean pressors to keep systolic blood pressure above 90 Continue vent management and weaning if able, patient's family would like trach placement if cannot wean off vent, palliative care is following Serial lab monitoring and electrolyte replacement Started on steroids per pulmonary Continue digoxin per cardiology Continue empiric broad-spectrum antibiotics for sepsis in an immunosuppressed patient with unclear source Definitely not a candidate for any form of cancer therapy at this point Test Engineer management and recommendations is appreciated Deep venous thrombosis prophylaxis. Bilateral sequential compression devices. Gastrointestinal prophylaxis. Proton pump inhibitors. Extremely poor prognosis. Problems: Subjective 24 Hr Interval Summary Subjective hx not possible: pt non-verbal Exam/Review of Systems Vital Signs Vitals Vital Signs Date Time Temp Pulse Resp B/P Pulse Ox O2 Delivery O2 Flow Rate FiO2 09/17/16 17:00 93 20 105/66 100 Mechanical Ventilator 09/17/16 13:00 97.0 09/17/16 10:25 30 Intake and Output 09/16/16 09/16/16 09/17/16 15:00 23:00 07:00 Intake Total 666.664 ml 866.664 ml 756.664 ml Output Total 415 ml 1050 ml 1600 ml Balance 251.664 ml -183.336 ml -843.336 ml Exam Constitutional: non-verbal Respiratory: clear to auscultation Cardiovascular: regular rate and rhythm Gastrointestinal: soft, No distended Musculoskeletal: nl extremities to inspection Results Result Diagram: 09/17/16 0500 09/17/16 0500 Results 24 hrs Laboratory Tests Test 09/16/16 18:17 09/17/16 00:02 09/17/16 05:00 09/17/16 06:20 Bedside Glucose 121 125 123 White Blood Count 10.2 Red Blood Count 3.44 L Hemoglobin 10.0 L Hematocrit 30.6 L Mean Corpuscular Volume 89.0 Mean Corpuscular Hemoglobin 29.1 Mean Corpuscular Hemoglobin Concent 32.7 Red Cell Distribution Width 20.1 H Platelet Count 46 L Mean Platelet Volume 13.8 H Neutrophils % 92.0 H Lymphocytes % 2.5 L Monocytes % 3.2 Eosinophils % 0.0 Basophils % 0.1 Nucleated Red Blood Cells % 1.6 H Neutrophils # 9.4 H Lymphocytes # 0.3 L Monocytes # 0.3 Eosinophils # 0.0 Basophils # 0.0 Nucleated Red Blood Cells # 0.2 H Sodium Level 135 Potassium Level 3.7 Chloride Level 104 Carbon Dioxide Level 24 Anion Gap 11 Blood Urea Nitrogen 29 H Creatinine 0.93 Glucose Level 120 Calcium Level 8.3 L Phosphorus Level 4.0 Magnesium Level 2.1 Test 09/17/16 11:38 Bedside Glucose 133 Medications Medications Current Medications Acetaminophen (Tylenol Tab) 650 mg Q6H PRN PO PAIN LEVEL 1-3 OR FEVER; Start at 18:30 Morphine Sulfate (morphine) 2 mg Q4H PRN IV SEVERE PAIN LEVEL 7-10; Start 09/05 at 18:30 Docusate Sodium (Colace) 100 mg Q12H PRN PO CONSTIPATION; Start 09/05/16 at 18: 30 Magnesium Hydroxide (Milk Of Mag) 30 ml DAILY PRN PO CONSTIPATION; Start at 18:30 Sodium Biphosphate/ Sodium Phosphate 133 ml 133 ml DAILY PRN CA CONSTIPATION; Start 09/05/16 at 18:30 Piperacillin Sod/ Tazobactam Sod (Zosyn 2.25gm/ 50ml (Pmx)) 50 ml @ 100 mls/hr Q6 IVPB Last administered on 09/17/16t 11:35; Admin Dose 100 MLS/HR; Start 09/06 at 00:00 Vancomycin HCl (Vanco Iv Per Pharmacy) VANCOMYCIN PER PHARMACY NOTE XX ; Start 09/05/16 at 18:30 Hydralazine HCl (Apresoline) 10 mg Q6H PRN IV ELEVATED BLOOD PRESSURE; Start at 18:30 Nitroglycerin (Nitroglycerin (Sl Tab) 0.4 Mg) 1 tab Q5M PRN SL ANGINA; Start at 18:30 Miscellaneous Information 1 ea NOTE XX ; Start 09/05/16 at 19:00 Glucose (Glutose) 15 gm Q15M PRN PO DECREASED GLUCOSE; Start 09/05/16 at 19:00 Glucose (Glutose) 22.5 gm Q15M PRN PO DECREASED GLUCOSE; Start 09/05/16 at 19: 00 Dextrose (D50w Syringe) 25 ml Q15M PRN IV DECREASED GLUCOSE; Start 09/05/16 at 19:00 Dextrose (D50w Syringe) 50 ml Q15M PRN IV DECREASED GLUCOSE; Start 09/05/16 at 19:00 Glucagon (Glucagen) 1 mg Q15M PRN IM DECREASED GLUCOSE; Start 09/05/16 at 19:00 Glucose 15 gm 15 gm Q15M PRN BUCCAL DECREASED GLUCOSE; Start 09/05/16 at 19:00 Ondansetron HCl/ Sodium Chloride (Zofran Inj/NS) 54 ml @ 216 mls/hr Q6H PRN IV NAUSEA AND/OR VOMITING Last administered on 09/07/16 17:27; Admin Dose 216 MLS/HR; Start 09/06/16 at 10:30 Pantoprazole 40 mg 40 mg BID@06,18 IV Last administered on 09/17/16 06:10; Admin Dose 40 MG; Start 09/08/16 at 18:00 Metronidazole 100 ml @ 100 mls/hr Q8 IVPB Last administered on 09/17/16 13:21 ; Admin Dose 100 MLS/HR; Start 09/08/16 at 14:00 Fluconazole/ Sodium Chloride 50 ml @ 50 mls/hr Q24H IVPB Last administered on 14:41; Admin Dose 50 MLS/HR; Start 09/09/16 at 14:30 Phenylephrine HCl/ Sodium Chloride (Julio-Syneph/NS) 500 ml @ 18.75 mls/ hr TITRATE IV ; Start 09/10/16 at 10:00 Miscellaneous Information PLEASE CHANGE ALL IVPB F... DAILY XX Last administered on 09/15/16 08:50; Admin Dose 1 EA; Start 09/10/16 at 08:30 Vasopressin 60 unit/Sodium Chloride 103 ml @ 0 mls/hr Q12H IVPB ; Start at 09:00; Status Future Hold Total Parenteral Nutrition 1,000 ml @ 40 mls/hr Q24H IV Last administered on 16:11; Admin Dose 40 MLS/HR; Start 09/11/16 at 16:00 Fat Emulsion Intravenous 500 ml @ 20.833 mls/ hr Q24H IV Last administered on 09/17/16 16:11; Admin Dose 20.833 MLS/HR; Start 09/11/16 at 16:00 Norepinephrine 16 mg/Sodium Chloride 500 ml @ 0 mls/hr TITRATE IV Last administered on 09/15/16 11:53; Admin Dose 3.75 MLS/HR; Start 09/11/16 at 20:31 Fentanyl (Sublimaze) 100 ml @ 5 mls/hr TITRATE IV Last administered on 16:10; Admin Dose 10 MLS/HR; Start 09/13/16 at 07:45 Hydrocortisone (Solu-Cortef) 50 mg Q8 IV Last administered on 09/17/16 13:21; Admin Dose 50 MG; Start 09/13/16 at 14:00 Lorazepam 1 mg 1 mg Q4 PRN IV ANXIETY Last administered on 09/17/16 11:43; Admin Dose 1 MG; Start 09/14/16 at 06:30 Midazolam HCl (Versed) 50 ml @ 1 mls/hr TITRATE IV ; Start 09/14/16 at 10:30 Insulin Aspart (Novolog Insulin Pen) NOVOLOG *MILD* ALGORI... Q6 SC ; Start 09/16 at 00:00 Collagenase 1 applic 1 applic DAILY TOP Last administered on 09/17/16 08:35; Admin Dose 1 APPLIC; Start 09/17/16 at 09:00 Vancomycin HCl (Vancocin) 100 ml @ 100 mls/hr Q36H IVPB Last administered on 07:51; Admin Dose 100 MLS/HR; Start 09/17/16 at 08:00 CHERRI ALAN Sep 17, 2016 17:15
[2016-09-17] MEDS: [UNRECOGNIZED DRUG - REMARK] XX SCH (19:38)
[2016-09-18] VITALS (44 sets, daily range): BP systolic 83–128; BP diastolic 56–92; PULSE 76–120; RESP 14–40
[2016-09-18] MEDS: PIPER-TAZO 2.25 GM (PMX) 50 ML IVPB SCH ×4 (00:25→17:27)
[2016-09-18] MEDS: FENTAnyl (DRIP) 1000 mcg/100mL 100 ML IV SCH ×3 (03:38→20:42)
[2016-09-18] MEDS: FUROSEMIDE 20 MG INJ IV SCH ×2 (05:47→17:15)
[2016-09-18] MEDS: metroNIDAZOLE 500 MG/NS (PMX) 100 ML IVPB SCH ×3 (05:48→22:01)
[2016-09-18] MEDS: HYDROCORTISONE 100 MG INJ IV SCH ×3 (05:48→22:01)
[2016-09-18] MEDS: PANTOPRAZOLE 40 MG INJ IV SCH ×2 (05:48→17:14)
[2016-09-18] MEDS: INSULIN ASPART [NOVOLOG] 3 ML PEN SC SCH ×4 (05:50→17:29)
[2016-09-18 07:25] LABS: CALCIUM 8.5 mg/dl (8.4-10.2); CREATININE 0.91 mg/dl (0.44-1.00); MAGNESIUM 2.1 mg/dl (1.7-2.5); POTASSIUM 3.6 mmol/L (3.5-5.1)
--- NOTE | 2016-09-18 07:30 | PN ---
DATE: 09/17/2016 PALLIATIVE CARE NOTE Ms. Dickinson remains in the intensive care unit, critically ill, remains intubated. I have spoken to f amily members numerous times to bring them up to date about their ongoing hopes, fears, understandin g about the patient's current medical condition. Apparently when she has some sedation medication s he does follow simple commands, but she is not extubatable. I will speak to family members again. Primary decision maker is patient's daughter, although the [facility]. Code status should be addressed at this time. I will organize a complete family co nference again. Goals of care will be discussed. Code will be discussed. Prior had spoken of acce ptable quality of life. Will be addressed once again. The patient does have an advanced directive, which states she wants to have full care. Dictated By: MORIAH GARRIDO MD, LP/EHSAN Conf#: [id number] DID#: [id number]
--- NOTE | 2016-09-18 07:51 | PN ---
DATE: 09/17/2016 CARDIOLOGY FOLLOWUP SUBJECTIVE: Discussed with the staff. Rhythm strip was reviewed. The patient remains intubated on the vent. oxygen. Blood pressure has remained stable off of any pressors currently. No rep orted chest pain or pressure; however, the patient to being intubated. MEDICATIONS: Reviewed. PHYSICAL EXAMINATION: VITAL SIGNS: Temperature 96.6, heart rate of 88, blood pressure 116/70, respiration rate of 18, sat urating 100%. HEENT: Normocephalic, atraumatic. No acute distress. Status post intubation on the vent. CARDIOVASCULAR: Regular rate and rhythm, systolic murmur. PULMONARY: Anteriorly with mild rhonchi, no wheezes. GASTROINTESTINAL: Soft. No rebound or guarding. Oropharynx: G-tube in place. EXTREMITIES: Diffuse 4+ lower extremity edema. NEUROLOGIC: Awake, responds appropriately. LABORATORY: WBC of 10.2, hemoglobin of 10.8, platelets of 46. Sodium of 135, potassium 3.7, BUN of 29, creatinine 0.93, glucose 120. ASSESSMENT AND PLAN: 1. Septic shock. 2. Perforated bowel following colonoscopy. 3. Hypoxemic respiratory failure, status post intubation on the vent. 4. Severe cardiomyopathy, probably nonischemic. 5. Thrombocytopenia. 6. cervical cancer. 7. History of anemia with OB positive stool. 8. Lower extremities edema, anasarca. 9. Malnutrition, on TPN. RECOMMENDATIONS: Digoxin has been discontinued due to elevated level. We will continue to monitor on telemetry. Weaning will be deferred to pulmonary team. Chest x-ray will be ordered. Antibiotic is managed as per internal medicine and ID recommendations. . The patient has NG tube to suc tion and getting TPN. Continue with the ICU care. Dictated By: JIM ABDI MD AV/NTS Conf#: [id number] DID#: [id number] CC: CHERRI ALAN MD;*EndCC*
[2016-09-18] MEDS: POTASSIUM CHLORIDE 50 ML IVPB PRN (07:53)
[2016-09-18] MEDS: [UNRECOGNIZED DRUG - REMARK] XX SCH (08:01)
[2016-09-18] MEDS: COLLAGENASE 30 GM TUBE TOP SCH (08:01)
--- NOTE | 2016-09-18 08:27 | PN ---
DATE: 09/18/2016 CARDIOLOGY FOLLOWUP PROGRESS NOTE SUBJECTIVE: Discussed with the staff. Rhythm strip was reviewed. The patient remains intubated on the vent. Blood pressure has remained stable, overall satting okay now. MEDICATIONS: Reviewed. PHYSICAL EXAMINATION: VITAL SIGNS: Temperature 98.2, heart rate of 97, blood pressure 95/61, respiratory rate of 22. HEENT: Normocephalic, atraumatic. Status post intubation, on the vent. CARDIOVASCULAR: Regular rate and rhythm. PULMONARY: Anteriorly with no wheezes, minimal rhonchi. GASTROINTESTINAL: Soft. No rebound. EXTREMITIES: Diffuse lower extremity edema. NEUROLOGIC: Awake, responds appropriately. LABORATORY: Shows WBC of 10.2, hemoglobin 10, platelets of 46. Sodium 132, potassium 3.6, BUN of 3 2, creatinine 0.91, glucose of 119. ASSESSMENT AND PLAN: 1. Septic shock. 2. Perforated colon. 3. Severe cardiomyopathy, probably nonischemic. 4. History of cervical cancers. 5. Anasarca, severe lower extremity edema. 6. Respiratory failure, hypoxemic, hypercapneic, status post intubation, still on the vent. RECOMMENDATIONS: We will continue with the ICU care. Respiratory care will be continued. Off of p ressors now as long as blood pressure is stable. Follow up with the surgical and GI recommendations . Digoxin is on hold due to elevated level. Will check again tomorrow, if needed, will give as nee ded. At this point, unable to give any p.o. medication and she is on TPN. Consider weaning if able to tolerate it. Continue ICU care. Dictated By: JIM ABDI MD AV/EHSAN Conf#: [id number] DID#: [id number] CC: CHERRI ALAN MD;*EndCC*
--- NOTE | 2016-09-18 08:37 | PN ---
DATE: 09/18/2016 SUBJECTIVE: The patient is critical but stable, currently on full ventilator support. No other acu te events noted. No hemoptysis, hematemesis, or hematochezia. OBJECTIVE: VITAL SIGNS: Blood pressure is 95/61, respirations 22, pulse 97, temperature 98.6. I'S AND O'S: The patient had 2.3 L in, 2.9 L out. HEENT: Head is normocephalic. NECK: Supple. HEART: Regular rate. LUNGS: Show diminished breath sounds at the base. ABDOMEN: Soft, nontender to palpation, no rebound or guarding. EXTREMITIES: Negative for clubbing, cyanosis. Positive edema, diffuse anasarca. DERMATOLOGIC: No rashes. MUSCULOSKELETAL: No joint effusions. NEUROLOGIC: No change in exam. MEDICATIONS: Have been reviewed. LABORATORY DATA: Has been reviewed. No new labs. ASSESSMENT AND PLAN: 1. Nonoliguric acute kidney injury with unknown baseline creatinine. Etiology secondary to hemodyn amics, sepsis. The patient's renal function has improved. At this point, continue current treatmen t plan, supportive care, renally dose all medications. 2. History of hydronephrosis, status post bilateral nephrostomy tubes. The patient is currently st able. Continue to monitor. 3. Hyponatremia, improving. Continue free water restriction. 4. Volume overload secondary to capillary leak, third spacing, congestive heart failure. The patie nt is currently on Lasix, tolerated it well. Continue to monitor. Monitor blood pressures closely. 5. Ventilator-dependent respiratory failure. Vent settings have been reviewed. ABG has been revie wed. Continue to monitor. 6. Sepsis, status post shock. The patient is currently off pressors. Continue current antibiotic regimen. 7. Perforated bowel. The patient was seen by general surgeon. No plans for intervention at this t daniel. Continue supportive care. 8. Elevated troponin, possible [id number] myocardial infarction. Continue medical management . 9. History of metastatic cervical carcinoma. Continue to monitor. 10. Cardiomyopathy. Continue current medical management. 11. Anemia with possible gastrointestinal bleed. Continue to monitor H and H levels. 12. Nutrition. Continue TPN. Dictated By: URIEL RAMESH/EHSAN Conf#: [id number] DID#: [id number]
--- NOTE | 2016-09-18 09:48 | CONS ---
Date/Time of Note Date/Time of Note DATE: 09/18/16 TIME: 09:44 Assessment/Plan Assessment/Plan Additional Assessment/Plan Ventilator setting; AC of 16, tidal volume 450, PEEP of 5, 30% FiO2. Chest x-ray was reviewed from yesterday late morning which is essentially clear. Patient currently on fentanyl at 100 mics per hour. Also on TPN. Assessment recommendations; 1. Patient admitted with severe sepsis due to bowel perforation, patient is deemed too high of a surgical risk for laparotomy. 2. Widely metastatic cervical cancer. 3. History of bilateral nephrostomy tube placement. 4. Thrombocytopenia, without any overt bleeding. 5. Anemia. 6. Failure to be weaned from ventilator. Patient failed a CPAP trial yesterday. 7. Persistent ileus. Next Continue current treatment. Prognosis is poor. Consultation Date/Type/Reason Admit Date/Time September 05, 2016 at 16:23 Initial Consult Date 09/06/16 Type of Consultation: Pulmonary/critical care Referring Provider: ONEIDA COLEMAN 24 HR Interval Summary Free Text/Dictation Patient condition remains critical but has been remained stable. Patient has remained hemodynamically stable. Despite being on sedation patient is completely awake and alert. No untoward events reported. General exam; elderly woman, orally intubated, awake and alert. Currently in no distress. Exam/Review of Systems Vital Signs Vitals Vital Signs Date Time Temp Pulse Resp B/P Pulse Ox O2 Delivery O2 Flow Rate FiO2 09/18/16 09:00 92 19 103/62 100 Mechanical Ventilator 09/18/16 08:00 98.2 09/18/16 08:00 30 Intake and Output 09/17/16 09/17/16 09/18/16 15:00 23:00 07:00 Intake Total 866.664 ml 767.499 ml 718 ml Output Total 700 ml 890 ml 1310 ml Balance 166.664 ml -122.501 ml -592 ml Exam HEENT examination; supple neck, no JVD. No lymphadenopathy. Midline trachea. No thyromegaly. Pupils are small bilaterally. Patient has fair dentition. Chest examined; clear to auscultation. S1-S2 audible, no murmurs. Regular rhythm. Abdomen exam is; distended. Bowel sounds are absent. No organomegaly felt. Extremity exam; there is marked reduction in generalized anasarca. Pulses 1+ bilaterally. [employer] examination; she is awake and answers appropriately by head nodding and eye blinking. Generalized muscular weakness. Results Result Diagram: 09/17/16 0500 09/18/16 0545 Results 24 hrs Laboratory Tests Test 09/17/16 11:38 09/17/16 17:41 09/18/16 00:24 09/18/16 05:45 Bedside Glucose 133 126 115 Sodium Level 136 Potassium Level 3.6 Chloride Level 105 Carbon Dioxide Level 24 Anion Gap 11 Blood Urea Nitrogen 32 H Creatinine 0.91 Glucose Level 119 Calcium Level 8.5 Phosphorus Level 4.0 Magnesium Level 2.1 Test 09/18/16 05:49 Bedside Glucose 127 Medications Medications Current Medications Acetaminophen (Tylenol Tab) 650 mg Q6H PRN PO PAIN LEVEL 1-3 OR FEVER; Start at 18:30 Morphine Sulfate (morphine) 2 mg Q4H PRN IV SEVERE PAIN LEVEL 7-10; Start 09/05 at 18:30 Docusate Sodium (Colace) 100 mg Q12H PRN PO CONSTIPATION; Start 09/05/16 at 18: 30 Magnesium Hydroxide (Milk Of Mag) 30 ml DAILY PRN PO CONSTIPATION; Start at 18:30 Sodium Biphosphate/ Sodium Phosphate 133 ml 133 ml DAILY PRN [place] CONSTIPATION; Start 09/05/16 at 18:30 Piperacillin Sod/ Tazobactam Sod (Zosyn 2.25gm/ 50ml (Pmx)) 50 ml @ 100 mls/hr Q6 IVPB Last administered on 09/18/16t 05:48; Admin Dose 100 MLS/HR; Start 09/06 at 00:00 Vancomycin HCl (Vanco Iv Per Pharmacy) VANCOMYCIN PER PHARMACY NOTE XX ; Start 09/05/16 at 18:30 Hydralazine HCl (Apresoline) 10 mg Q6H PRN IV ELEVATED BLOOD PRESSURE; Start at 18:30 Nitroglycerin (Nitroglycerin (Sl Tab) 0.4 Mg) 1 tab Q5M PRN SL ANGINA; Start at 18:30 Miscellaneous Information 1 ea NOTE XX ; Start 09/05/16 at 19:00 Glucose (Glutose) 15 gm Q15M PRN PO DECREASED GLUCOSE; Start 09/05/16 at 19:00 Glucose (Glutose) 22.5 gm Q15M PRN PO DECREASED GLUCOSE; Start 09/05/16 at 19: 00 Dextrose (D50w Syringe) 25 ml Q15M PRN IV DECREASED GLUCOSE; Start 09/05/16 at 19:00 Dextrose (D50w Syringe) 50 ml Q15M PRN IV DECREASED GLUCOSE; Start 09/05/16 at 19:00 Glucagon (Glucagen) 1 mg Q15M PRN IM DECREASED GLUCOSE; Start 09/05/16 at 19:00 Glucose 15 gm 15 gm Q15M PRN BUCCAL DECREASED GLUCOSE; Start 09/05/16 at 19:00 Ondansetron HCl/ Sodium Chloride (Zofran Inj/NS) 54 ml @ 216 mls/hr Q6H PRN IV NAUSEA AND/OR VOMITING Last administered on 09/07/16 17:27; Admin Dose 216 MLS/HR; Start 09/06/16 at 10:30 Pantoprazole 40 mg 40 mg BID@06,18 IV Last administered on 09/18/16 05:48; Admin Dose 40 MG; Start 09/08/16 at 18:00 Metronidazole 100 ml @ 100 mls/hr Q8 IVPB Last administered on 09/18/16 05:48 ; Admin Dose 100 MLS/HR; Start 09/08/16 at 14:00 Fluconazole/ Sodium Chloride 50 ml @ 50 mls/hr Q24H IVPB Last administered on 14:41; Admin Dose 50 MLS/HR; Start 09/09/16 at 14:30 Phenylephrine HCl/ Sodium Chloride (Julio-Syneph/NS) 500 ml @ 18.75 mls/ hr TITRATE IV ; Start 09/10/16 at 10:00 Miscellaneous Information PLEASE CHANGE ALL IVPB F... DAILY XX Last administered on 09/18/16 08:01; Admin Dose 1 EA; Start 09/10/16 at 08:30 Vasopressin 60 unit/Sodium Chloride 103 ml @ 0 mls/hr Q12H IVPB ; Start at 09:00; Status Future Hold Total Parenteral Nutrition 1,000 ml @ 40 mls/hr Q24H IV Last administered on 22:10; Admin Dose 40 MLS/HR; Start 09/11/16 at 16:00 Fat Emulsion Intravenous 500 ml @ 20.833 mls/ hr Q24H IV Last administered on 09/17/16 16:11; Admin Dose 20.833 MLS/HR; Start 09/11/16 at 16:00 Norepinephrine 16 mg/Sodium Chloride 500 ml @ 0 mls/hr TITRATE IV Last administered on 09/15/16 11:53; Admin Dose 3.75 MLS/HR; Start 09/11/16 at 20:31 Fentanyl (Sublimaze) 100 ml @ 5 mls/hr TITRATE IV Last administered on 03:38; Admin Dose 10 MLS/HR; Start 09/13/16 at 07:45 Hydrocortisone (Solu-Cortef) 50 mg Q8 IV Last administered on 09/18/16 05:48; Admin Dose 50 MG; Start 09/13/16 at 14:00 Lorazepam 1 mg 1 mg Q4 PRN IV ANXIETY Last administered on 09/17/16 11:43; Admin Dose 1 MG; Start 09/14/16 at 06:30 Midazolam HCl (Versed) 50 ml @ 1 mls/hr TITRATE IV ; Start 09/14/16 at 10:30 Insulin Aspart (Novolog Insulin Pen) NOVOLOG *MILD* ALGORI... Q6 SC ; Start 09/16 at 00:00 Collagenase 1 applic 1 applic DAILY TOP Last administered on 09/18/16 08:01; Admin Dose 1 APPLIC; Start 09/17/16 at 09:00 Vancomycin HCl (Vancocin) 100 ml @ 100 mls/hr Q36H IVPB Last administered on 07:51; Admin Dose 100 MLS/HR; Start 09/17/16 at 08:00 SKYLER ESTEVES Sep 18, 2016 09:48
--- NOTE | 2016-09-18 13:37 | PN ---
Date/Time of Note Date/Time of Note DATE: 09/18/16 TIME: 13:37 Assessment/Plan VTE Prophylaxis VTE Prophylaxis Intervention: SCD's Lines/Catheters Urinary Cath still in place: No Assessment/Plan Chief Complaint/Hosp Course 1. Severe systemic systemic inflammatory response syndrome with shock in patient with known metastatic cancer likely due to sepsis 2. Post colonoscopy perforated viscus: improved Large pelvic mass invading colon wall site of perforation Contrast leakage to pelvic area: not seen on last CT Contained perforation as no evidence of generalized peritonitis 3. 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 Chronic ureteral obstruction from #3 s/p nephrostomy tube bilateral 5. Severe cardiomyopathy with EF 20% thought to be likely ischemic 6. Occult GI bleed secondary to metastatic mass 7. Recurrent anemia requiring transfusion secondary to the above 8. Acute respiratory failure secondary to profound septic shock 9. Underlying abdominal ileus secondary to an obstructing sigmoid colon mass with patient now on TPN 10. Severe LE edema and anasarca 2/2 mass effect PLAN: Continue intensive care unit monitoring. Continue to wean pressors to keep systolic blood pressure above 90 Continue vent management and weaning if able, patient's family would like trach placement if cannot wean off vent, palliative care is following Serial lab monitoring and electrolyte replacement Started on steroids per pulmonary Continue digoxin per cardiology Continue empiric broad-spectrum antibiotics for sepsis in an immunosuppressed patient with unclear source Definitely not a candidate for any form of cancer therapy at this point Forepart Rasper management and recommendations is appreciated Deep venous thrombosis prophylaxis. Bilateral sequential compression devices. Gastrointestinal prophylaxis. Proton pump inhibitors. Extremely poor prognosis. Problems: Subjective 24 Hr Interval Summary Subjective hx not possible: pt non-verbal Exam/Review of Systems Vital Signs Vitals Vital Signs Date Time Temp Pulse Resp B/P Pulse Ox O2 Delivery O2 Flow Rate FiO2 09/18/16 13:00 100 19 100/60 99 Mechanical Ventilator 09/18/16 12:30 97.8 09/18/16 11:40 30 Intake and Output 09/17/16 09/17/16 09/18/16 15:00 23:00 07:00 Intake Total 866.664 ml 767.499 ml 718 ml Output Total 700 ml 890 ml 1310 ml Balance 166.664 ml -122.501 ml -592 ml Exam Constitutional: non-verbal ENMT: intubated Respiratory: clear to auscultation Cardiovascular: regular rate and rhythm Gastrointestinal: soft, No distended Musculoskeletal: nl extremities to inspection Results Result Diagram: 09/17/16 0500 09/18/16 0545 Results 24 hrs Laboratory Tests Test 09/17/16 17:41 09/18/16 00:24 09/18/16 05:45 09/18/16 05:49 Bedside Glucose 126 115 127 Sodium Level 136 Potassium Level 3.6 Chloride Level 105 Carbon Dioxide Level 24 Anion Gap 11 Blood Urea Nitrogen 32 H Creatinine 0.91 Glucose Level 119 Calcium Level 8.5 Phosphorus Level 4.0 Magnesium Level 2.1 Test 09/18/16 12:11 Bedside Glucose 127 Medications Medications Current Medications Acetaminophen (Tylenol Tab) 650 mg Q6H PRN PO PAIN LEVEL 1-3 OR FEVER; Start at 18:30 Morphine Sulfate (morphine) 2 mg Q4H PRN IV SEVERE PAIN LEVEL 7-10; Start 09/05 at 18:30 Docusate Sodium (Colace) 100 mg Q12H PRN PO CONSTIPATION; Start 09/05/16 at 18: 30 Magnesium Hydroxide (Milk Of Mag) 30 ml DAILY PRN PO CONSTIPATION; Start at 18:30 Sodium Biphosphate/ Sodium Phosphate 133 ml 133 ml DAILY PRN [place] CONSTIPATION; Start 09/05/16 at 18:30 Piperacillin Sod/ Tazobactam Sod (Zosyn 2.25gm/ 50ml (Pmx)) 50 ml @ 100 mls/hr Q6 IVPB Last administered on 09/18/16t 12:10; Admin Dose 100 MLS/HR; Start 09/06 at 00:00 Vancomycin HCl (Vanco Iv Per Pharmacy) VANCOMYCIN PER PHARMACY NOTE XX ; Start 09/05/16 at 18:30 Hydralazine HCl (Apresoline) 10 mg Q6H PRN IV ELEVATED BLOOD PRESSURE; Start at 18:30 Nitroglycerin (Nitroglycerin (Sl Tab) 0.4 Mg) 1 tab Q5M PRN SL ANGINA; Start at 18:30 Miscellaneous Information 1 ea NOTE XX ; Start 09/05/16 at 19:00 Glucose (Glutose) 15 gm Q15M PRN PO DECREASED GLUCOSE; Start 09/05/16 at 19:00 Glucose (Glutose) 22.5 gm Q15M PRN PO DECREASED GLUCOSE; Start 09/05/16 at 19: 00 Dextrose (D50w Syringe) 25 ml Q15M PRN IV DECREASED GLUCOSE; Start 09/05/16 at 19:00 Dextrose (D50w Syringe) 50 ml Q15M PRN IV DECREASED GLUCOSE; Start 09/05/16 at 19:00 Glucagon (Glucagen) 1 mg Q15M PRN IM DECREASED GLUCOSE; Start 09/05/16 at 19:00 Glucose 15 gm 15 gm Q15M PRN BUCCAL DECREASED GLUCOSE; Start 09/05/16 at 19:00 Ondansetron HCl/ Sodium Chloride (Zofran Inj/NS) 54 ml @ 216 mls/hr Q6H PRN IV NAUSEA AND/OR VOMITING Last administered on 09/07/16 17:27; Admin Dose 216 MLS/HR; Start 09/06/16 at 10:30 Pantoprazole 40 mg 40 mg BID@06,18 IV Last administered on 09/18/16 05:48; Admin Dose 40 MG; Start 09/08/16 at 18:00 Metronidazole 100 ml @ 100 mls/hr Q8 IVPB Last administered on 09/18/16 05:48 ; Admin Dose 100 MLS/HR; Start 09/08/16 at 14:00 Fluconazole/ Sodium Chloride 50 ml @ 50 mls/hr Q24H IVPB Last administered on 14:41; Admin Dose 50 MLS/HR; Start 09/09/16 at 14:30 Phenylephrine HCl/ Sodium Chloride (Julio-Syneph/NS) 500 ml @ 18.75 mls/ hr TITRATE IV ; Start 09/10/16 at 10:00 Miscellaneous Information PLEASE CHANGE ALL IVPB F... DAILY XX Last administered on 09/18/16 08:01; Admin Dose 1 EA; Start 09/10/16 at 08:30 Vasopressin 60 unit/Sodium Chloride 103 ml @ 0 mls/hr Q12H IVPB ; Start at 09:00; Status Future Hold Total Parenteral Nutrition 1,000 ml @ 40 mls/hr Q24H IV Last administered on 22:10; Admin Dose 40 MLS/HR; Start 09/11/16 at 16:00 Fat Emulsion Intravenous 500 ml @ 20.833 mls/ hr Q24H IV Last administered on 09/17/16 16:11; Admin Dose 20.833 MLS/HR; Start 09/11/16 at 16:00 Norepinephrine 16 mg/Sodium Chloride 500 ml @ 0 mls/hr TITRATE IV Last administered on 09/15/16 11:53; Admin Dose 3.75 MLS/HR; Start 09/11/16 at 20:31 Fentanyl (Sublimaze) 100 ml @ 5 mls/hr TITRATE IV Last administered on 12:33; Admin Dose 10 MLS/HR; Start 09/13/16 at 07:45 Hydrocortisone (Solu-Cortef) 50 mg Q8 IV Last administered on 09/18/16 05:48; Admin Dose 50 MG; Start 09/13/16 at 14:00 Lorazepam 1 mg 1 mg Q4 PRN IV ANXIETY Last administered on 09/17/16 11:43; Admin Dose 1 MG; Start 09/14/16 at 06:30 Midazolam HCl (Versed) 50 ml @ 1 mls/hr TITRATE IV ; Start 09/14/16 at 10:30 Insulin Aspart (Novolog Insulin Pen) NOVOLOG *MILD* ALGORI... Q6 SC ; Start 09/16 at 00:00 Collagenase 1 applic 1 applic DAILY TOP Last administered on 09/18/16 08:01; Admin Dose 1 APPLIC; Start 09/17/16 at 09:00 Vancomycin HCl (Vancocin) 100 ml @ 100 mls/hr Q36H IVPB Last administered on 07:51; Admin Dose 100 MLS/HR; Start 09/17/16 at 08:00 CHERRI ALAN Sep 18, 2016 13:37
[2016-09-18] MEDS: FLUCONAZOLE 100 MG/NS (PMX) 50 ML IVPB SCH (14:36)
--- NOTE | 2016-09-18 15:32 | CONS ---
Date/Time of Note Date/Time of Note DATE: 09/18/16 TIME: 15:31 Assessment/Plan Assessment/Plan Chief Complaint/Hosp Course SUBJECTIVE: No events overnight, no fevers INDWELLINGS: Endotracheal tube, NG tube, PICC line, placed 09/11/2016, right chest Port-A-Cath, B nephrostomies. ANTIMICROBIALS: 1. IV vancomycin. 2. Fluconazole. 4. Flagyl. 5. Zosyn. PHYSICAL EXAMINATION: GENERAL: Chronically ill-appearing, elderly woman, in no distress. HEENT: Head atraumatic, normocephalic. Sclerae anicteric. Buccal mucosa dry. NECK: Supple, trachea midline. CHEST: Chest rise is symmetrical. Breath sounds diminished to the bases. HEART: S1, S2. ABDOMEN: Soft, bowel tones present. Abdomen distended. Bowel tones hypoactive. EXTREMITIES: With bilateral edema. ASSESSMENT: 1. Sepsis ==> resolving, s/p shock and multisystem organ failure. 2. Large pelvic mass/ metastatic cervical cancer 3. Proximal sigmoid colon obstruction with perforation. 4. Urinary tract infection, per urinalysis. 5. Acute renal and respiratory failure. PLAN: Hemodynamically stable, tolerates Cpap, WBC decreasing, continue broad- spectrum antibiotics, pt is full code, may need trach DW staff Problems: Consultation Date/Type/Reason Admit Date/Time September 05, 2016 at 16:23 Initial Consult Date 09/06/16 Type of Consultation: id Referring Provider: ONEIDA COLEMAN Exam/Review of Systems Vital Signs Vitals Vital Signs Date Time Temp Pulse Resp B/P Pulse Ox O2 Delivery O2 Flow Rate FiO2 09/18/16 15:00 90 18 96/58 99 Mechanical Ventilator 09/18/16 12:30 97.8 09/18/16 11:40 30 Intake and Output 09/17/16 09/17/16 09/18/16 15:00 23:00 07:00 Intake Total 866.664 ml 767.499 ml 718 ml Output Total 700 ml 890 ml 1310 ml Balance 166.664 ml -122.501 ml -592 ml Results Result Diagram: 09/17/16 0500 09/18/16 0545 Results 24 hrs Laboratory Tests Test 09/17/16 17:41 09/18/16 00:24 09/18/16 05:45 09/18/16 05:49 Bedside Glucose 126 115 127 Sodium Level 136 Potassium Level 3.6 Chloride Level 105 Carbon Dioxide Level 24 Anion Gap 11 Blood Urea Nitrogen 32 H Creatinine 0.91 Glucose Level 119 Calcium Level 8.5 Phosphorus Level 4.0 Magnesium Level 2.1 Test 09/18/16 12:11 Bedside Glucose 127 Medications Medications Current Medications Acetaminophen (Tylenol Tab) 650 mg Q6H PRN PO PAIN LEVEL 1-3 OR FEVER; Start at 18:30 Morphine Sulfate (morphine) 2 mg Q4H PRN IV SEVERE PAIN LEVEL 7-10; Start 09/05 at 18:30 Docusate Sodium (Colace) 100 mg Q12H PRN PO CONSTIPATION; Start 09/05/16 at 18: 30 Magnesium Hydroxide (Milk Of Mag) 30 ml DAILY PRN PO CONSTIPATION; Start at 18:30 Sodium Biphosphate/ Sodium Phosphate 133 ml 133 ml DAILY PRN [place] CONSTIPATION; Start 09/05/16 at 18:30 Piperacillin Sod/ Tazobactam Sod (Zosyn 2.25gm/ 50ml (Pmx)) 50 ml @ 100 mls/hr Q6 IVPB Last administered on 09/18/16t 12:10; Admin Dose 100 MLS/HR; Start 09/06 at 00:00 Vancomycin HCl (Vanco Iv Per Pharmacy) VANCOMYCIN PER PHARMACY NOTE XX ; Start 09/05/16 at 18:30 Hydralazine HCl (Apresoline) 10 mg Q6H PRN IV ELEVATED BLOOD PRESSURE; Start at 18:30 Nitroglycerin (Nitroglycerin (Sl Tab) 0.4 Mg) 1 tab Q5M PRN SL ANGINA; Start at 18:30 Miscellaneous Information 1 ea NOTE XX ; Start 09/05/16 at 19:00 Glucose (Glutose) 15 gm Q15M PRN PO DECREASED GLUCOSE; Start 09/05/16 at 19:00 Glucose (Glutose) 22.5 gm Q15M PRN PO DECREASED GLUCOSE; Start 09/05/16 at 19: 00 Dextrose (D50w Syringe) 25 ml Q15M PRN IV DECREASED GLUCOSE; Start 09/05/16 at 19:00 Dextrose (D50w Syringe) 50 ml Q15M PRN IV DECREASED GLUCOSE; Start 09/05/16 at 19:00 Glucagon (Glucagen) 1 mg Q15M PRN IM DECREASED GLUCOSE; Start 09/05/16 at 19:00 Glucose 15 gm 15 gm Q15M PRN BUCCAL DECREASED GLUCOSE; Start 09/05/16 at 19:00 Ondansetron HCl/ Sodium Chloride (Zofran Inj/NS) 54 ml @ 216 mls/hr Q6H PRN IV NAUSEA AND/OR VOMITING Last administered on 09/07/16 17:27; Admin Dose 216 MLS/HR; Start 09/06/16 at 10:30 Pantoprazole 40 mg 40 mg BID@06,18 IV Last administered on 09/18/16 05:48; Admin Dose 40 MG; Start 09/08/16 at 18:00 Metronidazole 100 ml @ 100 mls/hr Q8 IVPB Last administered on 09/18/16 13:49 ; Admin Dose 100 MLS/HR; Start 09/08/16 at 14:00 Fluconazole/ Sodium Chloride 50 ml @ 50 mls/hr Q24H IVPB Last administered on 14:36; Admin Dose 50 MLS/HR; Start 09/09/16 at 14:30 Phenylephrine HCl/ Sodium Chloride (Julio-Syneph/NS) 500 ml @ 18.75 mls/ hr TITRATE IV ; Start 09/10/16 at 10:00 Miscellaneous Information PLEASE CHANGE ALL IVPB F... DAILY XX Last administered on 09/18/16 08:01; Admin Dose 1 EA; Start 09/10/16 at 08:30 Vasopressin 60 unit/Sodium Chloride 103 ml @ 0 mls/hr Q12H IVPB ; Start at 09:00; Status Future Hold Total Parenteral Nutrition 1,000 ml @ 40 mls/hr Q24H IV Last administered on 22:10; Admin Dose 40 MLS/HR; Start 09/11/16 at 16:00 Fat Emulsion Intravenous 500 ml @ 20.833 mls/ hr Q24H IV Last administered on 09/17/16 16:11; Admin Dose 20.833 MLS/HR; Start 09/11/16 at 16:00 Norepinephrine 16 mg/Sodium Chloride 500 ml @ 0 mls/hr TITRATE IV Last administered on 09/15/16 11:53; Admin Dose 3.75 MLS/HR; Start 09/11/16 at 20:31 Fentanyl (Sublimaze) 100 ml @ 5 mls/hr TITRATE IV Last administered on 12:33; Admin Dose 10 MLS/HR; Start 09/13/16 at 07:45 Hydrocortisone (Solu-Cortef) 50 mg Q8 IV Last administered on 09/18/16 13:49; Admin Dose 50 MG; Start 09/13/16 at 14:00 Lorazepam 1 mg 1 mg Q4 PRN IV ANXIETY Last administered on 09/17/16 11:43; Admin Dose 1 MG; Start 09/14/16 at 06:30 Midazolam HCl (Versed) 50 ml @ 1 mls/hr TITRATE IV ; Start 09/14/16 at 10:30 Insulin Aspart (Novolog Insulin Pen) NOVOLOG *MILD* ALGORI... Q6 SC ; Start 09/16 at 00:00 Collagenase 1 applic 1 applic DAILY TOP Last administered on 09/18/16 08:01; Admin Dose 1 APPLIC; Start 09/17/16 at 09:00 Vancomycin HCl (Vancocin) 100 ml @ 100 mls/hr Q36H IVPB Last administered on 07:51; Admin Dose 100 MLS/HR; Start 09/17/16 at 08:00 BIN MITTAL NP Sep 18, 2016 15:32
--- NOTE | 2016-09-18 15:56 | PN ---
Date/Time of Note Date/Time of Note DATE: 09/18/16 TIME: 15:53 Assessment/Plan VTE Prophylaxis VTE Prophylaxis Intervention: contraindicated Lines/Catheters Urinary Cath still in place: No Assessment/Plan Assessment/Plan Anemia/no overt GI bleeding Rule out intra-abdominal bleeding versus hemolysis versus GI bleeding with slow transit Post colonoscopy perforated viscus * Large pelvic mass invading colon wall site of perforation * Contrast leakage to pelvic area * ?Contained perforation as no evidence of generalized peritonitis Sepsis Metastatic cervical CA/Adrenal/brain History of cervical cancer S/P nephrostomy tube bilateral EF 20% Plan continue present management Case was discussed with Dr Durant Subjective 24 Hr Interval Summary Free Text/Dictation * Course reviewed with RN * afebrile * still orally intubated Exam/Review of Systems Vital Signs Vitals Vital Signs Date Time Temp Pulse Resp B/P Pulse Ox O2 Delivery O2 Flow Rate FiO2 09/18/16 15:00 90 18 96/58 99 Mechanical Ventilator 09/18/16 12:30 97.8 09/18/16 11:40 30 Intake and Output 09/17/16 09/17/16 09/18/16 15:00 23:00 07:00 Intake Total 866.664 ml 767.499 ml 718 ml Output Total 700 ml 890 ml 1310 ml Balance 166.664 ml -122.501 ml -592 ml Exam Constitutional: frail ENMT: intubated Neck: non-tender, supple Respiratory: crackles/rales, diminished breath sounds Cardiovascular: nl pulses, regular rate and rhythm Gastrointestinal: bowel sounds, distended, firm, non-tender Genitourinary - Female: other (nephrostomy bilateral) Musculoskeletal: muscle weakness, swelling Neurological: lethargic Results Result Diagram: 09/17/16 0500 09/18/16 0545 Results 24 hrs Laboratory Tests Test 09/17/16 17:41 09/18/16 00:24 09/18/16 05:45 09/18/16 05:49 Bedside Glucose 126 115 127 Sodium Level 136 Potassium Level 3.6 Chloride Level 105 Carbon Dioxide Level 24 Anion Gap 11 Blood Urea Nitrogen 32 H Creatinine 0.91 Glucose Level 119 Calcium Level 8.5 Phosphorus Level 4.0 Magnesium Level 2.1 Test 09/18/16 12:11 Bedside Glucose 127 Medications Medications Current Medications Acetaminophen (Tylenol Tab) 650 mg Q6H PRN PO PAIN LEVEL 1-3 OR FEVER; Start at 18:30 Morphine Sulfate (morphine) 2 mg Q4H PRN IV SEVERE PAIN LEVEL 7-10; Start 09/05 at 18:30 Docusate Sodium (Colace) 100 mg Q12H PRN PO CONSTIPATION; Start 09/05/16 at 18: 30 Magnesium Hydroxide (Milk Of Mag) 30 ml DAILY PRN PO CONSTIPATION; Start at 18:30 Sodium Biphosphate/ Sodium Phosphate 133 ml 133 ml DAILY PRN [place] CONSTIPATION; Start 09/05/16 at 18:30 Piperacillin Sod/ Tazobactam Sod (Zosyn 2.25gm/ 50ml (Pmx)) 50 ml @ 100 mls/hr Q6 IVPB Last administered on 09/18/16t 12:10; Admin Dose 100 MLS/HR; Start 09/06 at 00:00 Vancomycin HCl (Vanco Iv Per Pharmacy) VANCOMYCIN PER PHARMACY NOTE XX ; Start 09/05/16 at 18:30 Hydralazine HCl (Apresoline) 10 mg Q6H PRN IV ELEVATED BLOOD PRESSURE; Start at 18:30 Nitroglycerin (Nitroglycerin (Sl Tab) 0.4 Mg) 1 tab Q5M PRN SL ANGINA; Start at 18:30 Miscellaneous Information 1 ea NOTE XX ; Start 09/05/16 at 19:00 Glucose (Glutose) 15 gm Q15M PRN PO DECREASED GLUCOSE; Start 09/05/16 at 19:00 Glucose (Glutose) 22.5 gm Q15M PRN PO DECREASED GLUCOSE; Start 09/05/16 at 19: 00 Dextrose (D50w Syringe) 25 ml Q15M PRN IV DECREASED GLUCOSE; Start 09/05/16 at 19:00 Dextrose (D50w Syringe) 50 ml Q15M PRN IV DECREASED GLUCOSE; Start 09/05/16 at 19:00 Glucagon (Glucagen) 1 mg Q15M PRN IM DECREASED GLUCOSE; Start 09/05/16 at 19:00 Glucose 15 gm 15 gm Q15M PRN BUCCAL DECREASED GLUCOSE; Start 09/05/16 at 19:00 Ondansetron HCl/ Sodium Chloride (Zofran Inj/NS) 54 ml @ 216 mls/hr Q6H PRN IV NAUSEA AND/OR VOMITING Last administered on 09/07/16 17:27; Admin Dose 216 MLS/HR; Start 09/06/16 at 10:30 Pantoprazole 40 mg 40 mg BID@06,18 IV Last administered on 09/18/16 05:48; Admin Dose 40 MG; Start 09/08/16 at 18:00 Metronidazole 100 ml @ 100 mls/hr Q8 IVPB Last administered on 09/18/16 13:49 ; Admin Dose 100 MLS/HR; Start 09/08/16 at 14:00 Fluconazole/ Sodium Chloride 50 ml @ 50 mls/hr Q24H IVPB Last administered on 14:36; Admin Dose 50 MLS/HR; Start 09/09/16 at 14:30 Phenylephrine HCl/ Sodium Chloride (Julio-Syneph/NS) 500 ml @ 18.75 mls/ hr TITRATE IV ; Start 09/10/16 at 10:00 Miscellaneous Information PLEASE CHANGE ALL IVPB F... DAILY XX Last administered on 09/18/16 08:01; Admin Dose 1 EA; Start 09/10/16 at 08:30 Vasopressin 60 unit/Sodium Chloride 103 ml @ 0 mls/hr Q12H IVPB ; Start at 09:00; Status Future Hold Total Parenteral Nutrition 1,000 ml @ 40 mls/hr Q24H IV Last administered on 22:10; Admin Dose 40 MLS/HR; Start 09/11/16 at 16:00 Fat Emulsion Intravenous 500 ml @ 20.833 mls/ hr Q24H IV Last administered on 09/17/16 16:11; Admin Dose 20.833 MLS/HR; Start 09/11/16 at 16:00 Norepinephrine 16 mg/Sodium Chloride 500 ml @ 0 mls/hr TITRATE IV Last administered on 09/15/16 11:53; Admin Dose 3.75 MLS/HR; Start 09/11/16 at 20:31 Fentanyl (Sublimaze) 100 ml @ 5 mls/hr TITRATE IV Last administered on 12:33; Admin Dose 10 MLS/HR; Start 09/13/16 at 07:45 Hydrocortisone (Solu-Cortef) 50 mg Q8 IV Last administered on 09/18/16 13:49; Admin Dose 50 MG; Start 09/13/16 at 14:00 Lorazepam 1 mg 1 mg Q4 PRN IV ANXIETY Last administered on 09/17/16 11:43; Admin Dose 1 MG; Start 09/14/16 at 06:30 Midazolam HCl (Versed) 50 ml @ 1 mls/hr TITRATE IV ; Start 09/14/16 at 10:30 Insulin Aspart (Novolog Insulin Pen) NOVOLOG *MILD* ALGORI... Q6 SC ; Start 09/16 at 00:00 Collagenase 1 applic 1 applic DAILY TOP Last administered on 09/18/16 08:01; Admin Dose 1 APPLIC; Start 09/17/16 at 09:00 Vancomycin HCl (Vancocin) 100 ml @ 100 mls/hr Q36H IVPB Last administered on 07:51; Admin Dose 100 MLS/HR; Start 09/17/16 at 08:00 [place] DE LEON NP Sep 18, 2016 15:56
[2016-09-18] MEDS: FAT EMULSION 20% 500 ML IV SCH (16:11)
[2016-09-18] MEDS: VANCOMYCIN 500MG/NS (PMX) 100 ML IVPB SCH (20:42)
[2016-09-19] VITALS (44 sets, daily range): BP systolic 87–126; BP diastolic 59–82; PULSE 91–111; RESP 15–41
[2016-09-19] MEDS: PIPER-TAZO 2.25 GM (PMX) 50 ML IVPB SCH ×4 (00:23→18:49)
[2016-09-19] MEDS: INSULIN ASPART [NOVOLOG] 3 ML PEN SC SCH ×4 (00:50→18:00)
[2016-09-19] MEDS: TPN 1,000 ML IV SCH ×2 (00:51→16:24)
[2016-09-19 05:25] LABS: CALCIUM 9.4 mg/dl (8.4-10.2); CREATININE 0.93 mg/dl (0.44-1.00); MAGNESIUM 2.1 mg/dl (1.7-2.5); PHOSPHORUS 3.9 mg/dl (2.5-4.9); POTASSIUM 3.5 mmol/L (3.5-5.1)
[2016-09-19] MEDS: metroNIDAZOLE 500 MG/NS (PMX) 100 ML IVPB SCH ×2 (05:33→14:00)
[2016-09-19] MEDS: PANTOPRAZOLE 40 MG INJ IV SCH ×2 (05:33→18:49)
[2016-09-19] MEDS: HYDROCORTISONE 100 MG INJ IV SCH ×3 (05:33→21:16)
[2016-09-19] MEDS: morphine 2 MG INJ IV PRN (05:41)
[2016-09-19] MEDS: FENTAnyl (DRIP) 1000 mcg/100mL 100 ML IV SCH ×2 (06:40→16:43)
[2016-09-19] MEDS: FUROSEMIDE 20 MG INJ IV SCH ×2 (07:05→18:49)
--- NOTE | 2016-09-19 07:25 | PN ---
DATE: 09/19/2016 SUBJECTIVE: The patient is in critical but stable. No other acute events noted. No hemoptysis, he matemesis, or hematochezia. No shortness of breath. OBJECTIVE: VITAL SIGNS: Blood pressure is 94/60, respirations 16, pulse 93, temperature 98.4. I's AND O'S: The patient had 2.3 liters in, 3 liters out. HEENT: Head is normocephalic. NECK: Supple. HEART: Regular rate. LUNGS: Show diminished breath sounds at base. ABDOMEN: Soft, nontender to palpation without rebound or guarding. EXTREMITIES: Negative for clubbing, cyanosis. Positive edema, diffuse anasarca. DERMATOLOGIC: No rashes. MUSCULOSKELETAL: No joint effusions. NEUROLOGIC: No change in exam. MEDICATIONS: Reviewed. LABORATORY DATA: Shows sodium 139, potassium 3.5, BUN 34, creatinine 0.93. The patient's imaging h as been reviewed. ASSESSMENT AND PLAN: 1. Nonoliguric acute kidney injury with unknown baseline creatinine. Etiology is secondary to hemo dynamics, sepsis. Renal function has improved. At this point, continue current treatment plan, sup portive care, renally dose all meds. 2. History of hydronephrosis, status post bilateral nephrostomy tubes, currently stable. Continue current treatment plan. 3. Hyponatremia, improved. Continue free water restriction. 4. Volume overload secondary to ____ versus CHF. Continue Lasix, tolerating well. 5. Ventilator dependent respiratory failure. Vent settings have been reviewed. ABG is reviewed. Continue to monitor. 6. Sepsis, status post shock. The patient is currently off pressors. Continue current antibiotic regimen. 7. Perforated bowel. Continue to monitor. Follow up with general surgeon. No plans for surgery a t this time. 8. Elevated troponin, non-STEMI. Continue medical management. 9. History of metastatic cervical cancer. Continue to monitor. 10. Cardiomyopathy. Continue medical management. 11. Anemia with possible GI bleed. Continue to monitor hemoglobin and hematocrit levels. 12. Nutrition. Continue TPN. Dictated By: URIEL TERRAZAS DO NR/NTS Conf#: [id number] DID#: [id number]
[2016-09-19] MEDS: COLLAGENASE 30 GM TUBE TOP SCH (08:16)
[2016-09-19] MEDS: [UNRECOGNIZED DRUG - REMARK] XX SCH (08:16)
--- NOTE | 2016-09-19 08:29 | CONS ---
Date/Time of Note Date/Time of Note DATE: 09/19/16 TIME: 08:26 Assessment/Plan Assessment/Plan Additional Assessment/Plan Ventilator settings; AC of 16, tidal volume 400, PEEP of 5, 30% FiO2. Patient currently on fentanyl drip at 100 mics per hour, and TPN. Assessment recommendations; 1. Patient admitted for severe sepsis due to bowel perforation, patient deemed to high surgical risk for laparotomy. 2. Widely metastatic cervical cancer. 3. History of bilateral nephrostomy tube placement. 4. Thrombocytopenia. 5. Anemia. 6. Persistent ileus. 7. Failure to be weaned from ventilator. Continue current supportive care. Patient currently is not in a position to be weaned off from mechanical ventilation. Prognosis still remains very poor. CBC from today is pending. Consultation Date/Type/Reason Admit Date/Time September 05, 2016 at 16:23 Initial Consult Date 09/06/16 Type of Consultation: Pulmonary/critical care Referring Provider: ONEIDA COLEMAN 24 HR Interval Summary Free Text/Dictation Patient's condition remains critical. However she is completely awake and alert and follows simple commands. Patient has remained hemodynamically stable. General exam; elderly woman, orally intubated, awake and alert. Currently in no distress. Exam/Review of Systems Vital Signs Vitals Vital Signs Date Time Temp Pulse Resp B/P Pulse Ox O2 Delivery O2 Flow Rate FiO2 09/19/16 06:00 93 15 94/60 100 Mechanical Ventilator 09/19/16 05:43 30 09/19/16 04:00 98.4 Intake and Output 09/18/16 09/18/16 09/19/16 15:00 23:00 07:00 Intake Total 768 ml 847 ml 547 ml Output Total 980 ml 710 ml 1310 ml Balance -212 ml 137 ml -763 ml Exam HEENT examination; supple neck, no JVD. No lymphadenopathy. Midline trachea. No thyromegaly. Orally intubated. Patient has fair dentition. Pupils are small bilaterally. Chest examination; diminished but clear vessel. S1-S2 audible, no murmurs. Regular rhythm. Abdomen examination; soft, distended. No organomegaly. Bowel sounds are absent. Extremity examination; 1+ anasarca. LOADER examination; patient awake and alert and follows simple commands and moves all 4 extremities on command. Results Result Diagram: 09/17/16 0500 09/19/16 0415 Results 24 hrs Laboratory Tests Test 09/18/16 12:11 09/18/16 17:29 09/19/16 00:22 09/19/16 04:15 Bedside Glucose 127 131 152 Sodium Level 139 Potassium Level 3.5 Chloride Level 106 Carbon Dioxide Level 23 Anion Gap 14 Blood Urea Nitrogen 34 H Creatinine 0.93 Glucose Level 111 Calcium Level 9.4 Phosphorus Level 3.9 Magnesium Level 2.1 Test 09/19/16 05:42 Bedside Glucose 123 Medications Medications Current Medications Acetaminophen (Tylenol Tab) 650 mg Q6H PRN PO PAIN LEVEL 1-3 OR FEVER; Start at 18:30 Morphine Sulfate (morphine) 2 mg Q4H PRN IV SEVERE PAIN LEVEL 7-10 Last administered on 09/19/16 05:41; Admin Dose 2 MG; Start 09/05/16 at 18:30 Docusate Sodium (Colace) 100 mg Q12H PRN PO CONSTIPATION; Start 09/05/16 at 18: 30 Magnesium Hydroxide (Milk Of Mag) 30 ml DAILY PRN PO CONSTIPATION; Start at 18:30 Sodium Biphosphate/ Sodium Phosphate 133 ml 133 ml DAILY PRN [place] CONSTIPATION; Start 09/05/16 at 18:30 Piperacillin Sod/ Tazobactam Sod (Zosyn 2.25gm/ 50ml (Pmx)) 50 ml @ 100 mls/hr Q6 IVPB Last administered on 09/19/16 05:33; Admin Dose 100 MLS/HR; Start 09/06 at 00:00 Vancomycin HCl (Vanco Iv Per Pharmacy) VANCOMYCIN PER PHARMACY NOTE XX ; Start 09/05/16 at 18:30 Hydralazine HCl (Apresoline) 10 mg Q6H PRN IV ELEVATED BLOOD PRESSURE; Start at 18:30 Nitroglycerin (Nitroglycerin (Sl Tab) 0.4 Mg) 1 tab Q5M PRN SL ANGINA; Start at 18:30 Miscellaneous Information 1 ea NOTE XX ; Start 09/05/16 at 19:00 Glucose (Glutose) 15 gm Q15M PRN PO DECREASED GLUCOSE; Start 09/05/16 at 19:00 Glucose (Glutose) 22.5 gm Q15M PRN PO DECREASED GLUCOSE; Start 09/05/16 at 19: 00 Dextrose (D50w Syringe) 25 ml Q15M PRN IV DECREASED GLUCOSE; Start 09/05/16 at 19:00 Dextrose (D50w Syringe) 50 ml Q15M PRN IV DECREASED GLUCOSE; Start 09/05/16 at 19:00 Glucagon (Glucagen) 1 mg Q15M PRN IM DECREASED GLUCOSE; Start 09/05/16 at 19:00 Glucose 15 gm 15 gm Q15M PRN BUCCAL DECREASED GLUCOSE; Start 09/05/16 at 19:00 Ondansetron HCl/ Sodium Chloride (Zofran Inj/NS) 54 ml @ 216 mls/hr Q6H PRN IV NAUSEA AND/OR VOMITING Last administered on 09/07/16 17:27; Admin Dose 216 MLS/HR; Start 09/06/16 at 10:30 Pantoprazole 40 mg 40 mg BID@06,18 IV Last administered on 09/19/16 05:33; Admin Dose 40 MG; Start 09/08/16 at 18:00 Metronidazole 100 ml @ 100 mls/hr Q8 IVPB Last administered on 09/19/16 05:33 ; Admin Dose 100 MLS/HR; Start 09/08/16 at 14:00 Fluconazole/ Sodium Chloride 50 ml @ 50 mls/hr Q24H IVPB Last administered on 14:36; Admin Dose 50 MLS/HR; Start 09/09/16 at 14:30 Phenylephrine HCl/ Sodium Chloride (Julio-Syneph/NS) 500 ml @ 18.75 mls/ hr TITRATE IV ; Start 09/10/16 at 10:00 Miscellaneous Information PLEASE CHANGE ALL IVPB F... DAILY XX Last administered on 09/19/16 08:16; Admin Dose 1 EA; Start 09/10/16 at 08:30 Vasopressin 60 unit/Sodium Chloride 103 ml @ 0 mls/hr Q12H IVPB ; Start at 09:00; Status Future Hold Total Parenteral Nutrition 1,000 ml @ 40 mls/hr Q24H IV Last administered on 00:51; Admin Dose 40 MLS/HR; Start 09/11/16 at 16:00 Fat Emulsion Intravenous 500 ml @ 20.833 mls/ hr Q24H IV Last administered on 09/18/16 16:11; Admin Dose 20.833 MLS/HR; Start 09/11/16 at 16:00 Norepinephrine 16 mg/Sodium Chloride 500 ml @ 0 mls/hr TITRATE IV Last administered on 09/15/16 11:53; Admin Dose 3.75 MLS/HR; Start 09/11/16 at 20:31 Fentanyl (Sublimaze) 100 ml @ 5 mls/hr TITRATE IV Last administered on 06:40; Admin Dose 10 MLS/HR; Start 09/13/16 at 07:45 Hydrocortisone (Solu-Cortef) 50 mg Q8 IV Last administered on 09/19/16 05:33; Admin Dose 50 MG; Start 09/13/16 at 14:00 Lorazepam 1 mg 1 mg Q4 PRN IV ANXIETY Last administered on 09/17/16 11:43; Admin Dose 1 MG; Start 09/14/16 at 06:30 Midazolam HCl (Versed) 50 ml @ 1 mls/hr TITRATE IV ; Start 09/14/16 at 10:30 Insulin Aspart (Novolog Insulin Pen) NOVOLOG *MILD* ALGORI... Q6 SC Last administered on 09/19/16 00:50; Admin Dose 1 UNIT; Start 09/16/16 at 00:00 Collagenase 1 applic 1 applic DAILY TOP Last administered on 09/18/16 08:01; Admin Dose 1 APPLIC; Start 09/17/16 at 09:00 Vancomycin HCl (Vancocin) 100 ml @ 100 mls/hr Q36H IVPB Last administered on 20:42; Admin Dose 100 MLS/HR; Start 09/17/16 at 08:00 SKYLER ESTEVES Sep 19, 2016 08:29
[2016-09-19] MEDS: POTASSIUM CHLORIDE 50 ML IVPB PRN ×2 (08:43→13:32)
--- NOTE | 2016-09-19 09:30 | PN ---
Date/Time of Note Date/Time of Note DATE: 09/19/16 TIME: 09:25 Assessment/Plan VTE Prophylaxis VTE Prophylaxis Intervention: contraindicated, SCD's Lines/Catheters IV Catheter Type (from Nrsg): PICC Line Central line still needed: Yes Urinary Cath still in place: No Assessment/Plan Assessment/Plan Respiratory failure Anemia/no overt GI bleeding Rule out intra-abdominal bleeding versus hemolysis versus GI bleeding with slow transit Post colonoscopy perforated viscus * Large pelvic mass invading colon wall site of perforation * Contrast leakage to pelvic area * ?Contained perforation as no evidence of generalized peritonitis Sepsis Metastatic cervical CA/Adrenal/brain History of cervical cancer S/P nephrostomy tube bilateral EF 20% Plan continue present management Case was discussed with Dr Durant Subjective 24 Hr Interval Summary Free Text/Dictation * Course reviewed with RN * Patient seen and examined * Orally intubated,afebrile Exam/Review of Systems Vital Signs Vitals Vital Signs Date Time Temp Pulse Resp B/P Pulse Ox O2 Delivery O2 Flow Rate FiO2 09/19/16 09:00 95 17 90/59 95 Mechanical Ventilator 09/19/16 08:00 98.4 09/19/16 05:43 30 Intake and Output 09/18/16 09/18/16 09/19/16 15:00 23:00 07:00 Intake Total 768 ml 847 ml 547 ml Output Total 980 ml 710 ml 1310 ml Balance -212 ml 137 ml -763 ml Exam Constitutional: frail ENMT: intubated Neck: non-tender, supple Respiratory: diminished breath sounds Cardiovascular: edema, nl pulses, regular rate and rhythm Gastrointestinal: bowel sounds, distended, firm Musculoskeletal: muscle weakness, swelling Extremities: edema Neurological: other (on fentanyl drip) Results Result Diagram: 09/17/16 0500 09/19/16 0415 Results 24 hrs Laboratory Tests Test 09/18/16 12:11 09/18/16 17:29 09/19/16 00:22 09/19/16 04:15 Bedside Glucose 127 131 152 Sodium Level 139 Potassium Level 3.5 Chloride Level 106 Carbon Dioxide Level 23 Anion Gap 14 Blood Urea Nitrogen 34 H Creatinine 0.93 Glucose Level 111 Calcium Level 9.4 Phosphorus Level 3.9 Magnesium Level 2.1 Test 09/19/16 05:42 Bedside Glucose 123 Medications Medications Current Medications Acetaminophen (Tylenol Tab) 650 mg Q6H PRN PO PAIN LEVEL 1-3 OR FEVER; Start at 18:30 Morphine Sulfate (morphine) 2 mg Q4H PRN IV SEVERE PAIN LEVEL 7-10 Last administered on 09/19/16 05:41; Admin Dose 2 MG; Start 09/05/16 at 18:30 Docusate Sodium (Colace) 100 mg Q12H PRN PO CONSTIPATION; Start 09/05/16 at 18: 30 Magnesium Hydroxide (Milk Of Mag) 30 ml DAILY PRN PO CONSTIPATION; Start at 18:30 Sodium Biphosphate/ Sodium Phosphate 133 ml 133 ml DAILY PRN [place] CONSTIPATION; Start 09/05/16 at 18:30 Piperacillin Sod/ Tazobactam Sod (Zosyn 2.25gm/ 50ml (Pmx)) 50 ml @ 100 mls/hr Q6 IVPB Last administered on 09/19/16 05:33; Admin Dose 100 MLS/HR; Start 09/06 at 00:00 Vancomycin HCl (Vanco Iv Per Pharmacy) VANCOMYCIN PER PHARMACY NOTE XX ; Start 09/05/16 at 18:30 Hydralazine HCl (Apresoline) 10 mg Q6H PRN IV ELEVATED BLOOD PRESSURE; Start at 18:30 Nitroglycerin (Nitroglycerin (Sl Tab) 0.4 Mg) 1 tab Q5M PRN SL ANGINA; Start at 18:30 Miscellaneous Information 1 ea NOTE XX ; Start 09/05/16 at 19:00 Glucose (Glutose) 15 gm Q15M PRN PO DECREASED GLUCOSE; Start 09/05/16 at 19:00 Glucose (Glutose) 22.5 gm Q15M PRN PO DECREASED GLUCOSE; Start 09/05/16 at 19: 00 Dextrose (D50w Syringe) 25 ml Q15M PRN IV DECREASED GLUCOSE; Start 09/05/16 at 19:00 Dextrose (D50w Syringe) 50 ml Q15M PRN IV DECREASED GLUCOSE; Start 09/05/16 at 19:00 Glucagon (Glucagen) 1 mg Q15M PRN IM DECREASED GLUCOSE; Start 09/05/16 at 19:00 Glucose 15 gm 15 gm Q15M PRN BUCCAL DECREASED GLUCOSE; Start 09/05/16 at 19:00 Ondansetron HCl/ Sodium Chloride (Zofran Inj/NS) 54 ml @ 216 mls/hr Q6H PRN IV NAUSEA AND/OR VOMITING Last administered on 09/07/16 17:27; Admin Dose 216 MLS/HR; Start 09/06/16 at 10:30 Pantoprazole 40 mg 40 mg BID@06,18 IV Last administered on 09/19/16 05:33; Admin Dose 40 MG; Start 09/08/16 at 18:00 Metronidazole 100 ml @ 100 mls/hr Q8 IVPB Last administered on 09/19/16 05:33 ; Admin Dose 100 MLS/HR; Start 09/08/16 at 14:00 Fluconazole/ Sodium Chloride 50 ml @ 50 mls/hr Q24H IVPB Last administered on 14:36; Admin Dose 50 MLS/HR; Start 09/09/16 at 14:30 Phenylephrine HCl/ Sodium Chloride (Julio-Syneph/NS) 500 ml @ 18.75 mls/ hr TITRATE IV ; Start 09/10/16 at 10:00 Miscellaneous Information PLEASE CHANGE ALL IVPB F... DAILY XX Last administered on 09/19/16 08:16; Admin Dose 1 EA; Start 09/10/16 at 08:30 Vasopressin 60 unit/Sodium Chloride 103 ml @ 0 mls/hr Q12H IVPB ; Start at 09:00; Status Future Hold Total Parenteral Nutrition 1,000 ml @ 40 mls/hr Q24H IV Last administered on 00:51; Admin Dose 40 MLS/HR; Start 09/11/16 at 16:00 Fat Emulsion Intravenous 500 ml @ 20.833 mls/ hr Q24H IV Last administered on 09/18/16 16:11; Admin Dose 20.833 MLS/HR; Start 09/11/16 at 16:00 Norepinephrine 16 mg/Sodium Chloride 500 ml @ 0 mls/hr TITRATE IV Last administered on 09/15/16 11:53; Admin Dose 3.75 MLS/HR; Start 09/11/16 at 20:31 Fentanyl (Sublimaze) 100 ml @ 5 mls/hr TITRATE IV Last administered on 06:40; Admin Dose 10 MLS/HR; Start 09/13/16 at 07:45 Hydrocortisone (Solu-Cortef) 50 mg Q8 IV Last administered on 09/19/16 05:33; Admin Dose 50 MG; Start 09/13/16 at 14:00 Lorazepam 1 mg 1 mg Q4 PRN IV ANXIETY Last administered on 09/17/16 11:43; Admin Dose 1 MG; Start 09/14/16 at 06:30 Midazolam HCl (Versed) 50 ml @ 1 mls/hr TITRATE IV ; Start 09/14/16 at 10:30 Insulin Aspart (Novolog Insulin Pen) NOVOLOG *MILD* ALGORI... Q6 SC Last administered on 09/19/16 00:50; Admin Dose 1 UNIT; Start 09/16/16 at 00:00 Collagenase 1 applic 1 applic DAILY TOP Last administered on 09/18/16 08:01; Admin Dose 1 APPLIC; Start 09/17/16 at 09:00 Vancomycin HCl (Vancocin) 100 ml @ 100 mls/hr Q36H IVPB Last administered on 20:42; Admin Dose 100 MLS/HR; Start 09/17/16 at 08:00 [place] DE LEON NP Sep 19, 2016 09:30
--- NOTE | 2016-09-19 14:02 | CONS ---
Date/Time of Note Date/Time of Note DATE: 09/19/16 TIME: 14:01 Assessment/Plan Assessment/Plan Chief Complaint/Hosp Course SUBJECTIVE: No events overnight, no fevers, pt is awake, watching TV, comfortable on vent INDWELLINGS: Endotracheal tube, NG tube, PICC line, placed 09/11/2016, right chest Port-A-Cath, B nephrostomies. ANTIMICROBIALS: 1. IV vancomycin. 2. Fluconazole. 4. Flagyl. 5. Zosyn. PHYSICAL EXAMINATION: GENERAL: Chronically ill-appearing, elderly woman, in no distress. HEENT: Head atraumatic, normocephalic. Sclerae anicteric. Buccal mucosa dry. NECK: Supple, trachea midline. CHEST: Chest rise is symmetrical. Breath sounds diminished to the bases. HEART: S1, S2. ABDOMEN: Soft, bowel tones present. Abdomen distended. Bowel tones hypoactive. EXTREMITIES: With bilateral edema. ASSESSMENT: 1. Sepsis ==> resolving, s/p shock and multisystem organ failure. 2. Large pelvic mass/ metastatic cervical cancer 3. Proximal sigmoid colon obstruction with perforation. 4. Urinary tract infection, per urinalysis. 5. Acute renal and respiratory failure. PLAN: Hemodynamically stable, dc Flagyl, continue broad-spectrum antibiotics, plan for family conference re plans of care [facility] staff Problems: Consultation Date/Type/Reason Admit Date/Time September 05, 2016 at 16:23 Initial Consult Date 09/06/16 Type of Consultation: id Referring Provider: ONEIDA COLEMAN Exam/Review of Systems Vital Signs Vitals Vital Signs Date Time Temp Pulse Resp B/P Pulse Ox O2 Delivery O2 Flow Rate FiO2 09/19/16 12:26 99 09/19/16 12:00 98.9 22 99/66 99 Mechanical Ventilator 09/19/16 11:40 30 Intake and Output 09/18/16 09/18/16 09/19/16 15:00 23:00 07:00 Intake Total 768 ml 847 ml 547 ml Output Total 980 ml 710 ml 1310 ml Balance -212 ml 137 ml -763 ml Results Result Diagram: 09/17/16 0500 09/19/16 0415 Results 24 hrs Laboratory Tests Test 09/18/16 17:29 09/19/16 00:22 09/19/16 04:15 09/19/16 05:42 Bedside Glucose 131 152 123 Sodium Level 139 Potassium Level 3.5 Chloride Level 106 Carbon Dioxide Level 23 Anion Gap 14 Blood Urea Nitrogen 34 H Creatinine 0.93 Glucose Level 111 Calcium Level 9.4 Phosphorus Level 3.9 Magnesium Level 2.1 Test 09/19/16 12:33 Bedside Glucose 136 Medications Medications Current Medications Acetaminophen (Tylenol Tab) 650 mg Q6H PRN PO PAIN LEVEL 1-3 OR FEVER; Start at 18:30 Morphine Sulfate (morphine) 2 mg Q4H PRN IV SEVERE PAIN LEVEL 7-10 Last administered on 09/19/16 05:41; Admin Dose 2 MG; Start 09/05/16 at 18:30 Docusate Sodium (Colace) 100 mg Q12H PRN PO CONSTIPATION; Start 09/05/16 at 18: 30 Magnesium Hydroxide (Milk Of Mag) 30 ml DAILY PRN PO CONSTIPATION; Start at 18:30 Sodium Biphosphate/ Sodium Phosphate 133 ml 133 ml DAILY PRN [place] CONSTIPATION; Start 09/05/16 at 18:30 Piperacillin Sod/ Tazobactam Sod (Zosyn 2.25gm/ 50ml (Pmx)) 50 ml @ 100 mls/hr Q6 IVPB Last administered on 09/19/16 12:33; Admin Dose 100 MLS/HR; Start 09/06 at 00:00 Vancomycin HCl (Vanco Iv Per Pharmacy) VANCOMYCIN PER PHARMACY NOTE XX ; Start 09/05/16 at 18:30 Hydralazine HCl (Apresoline) 10 mg Q6H PRN IV ELEVATED BLOOD PRESSURE; Start at 18:30 Nitroglycerin (Nitroglycerin (Sl Tab) 0.4 Mg) 1 tab Q5M PRN SL ANGINA; Start at 18:30 Miscellaneous Information 1 ea NOTE XX ; Start 09/05/16 at 19:00 Glucose (Glutose) 15 gm Q15M PRN PO DECREASED GLUCOSE; Start 09/05/16 at 19:00 Glucose (Glutose) 22.5 gm Q15M PRN PO DECREASED GLUCOSE; Start 09/05/16 at 19: 00 Dextrose (D50w Syringe) 25 ml Q15M PRN IV DECREASED GLUCOSE; Start 09/05/16 at 19:00 Dextrose (D50w Syringe) 50 ml Q15M PRN IV DECREASED GLUCOSE; Start 09/05/16 at 19:00 Glucagon (Glucagen) 1 mg Q15M PRN IM DECREASED GLUCOSE; Start 09/05/16 at 19:00 Glucose 15 gm 15 gm Q15M PRN BUCCAL DECREASED GLUCOSE; Start 09/05/16 at 19:00 Ondansetron HCl/ Sodium Chloride (Zofran Inj/NS) 54 ml @ 216 mls/hr Q6H PRN IV NAUSEA AND/OR VOMITING Last administered on 09/07/16 17:27; Admin Dose 216 MLS/HR; Start 09/06/16 at 10:30 Pantoprazole 40 mg 40 mg BID@06,18 IV Last administered on 09/19/16 05:33; Admin Dose 40 MG; Start 09/08/16 at 18:00 Metronidazole 100 ml @ 100 mls/hr Q8 IVPB Last administered on 09/19/16 05:33 ; Admin Dose 100 MLS/HR; Start 09/08/16 at 14:00 Fluconazole/ Sodium Chloride 50 ml @ 50 mls/hr Q24H IVPB Last administered on 14:36; Admin Dose 50 MLS/HR; Start 09/09/16 at 14:30 Phenylephrine HCl/ Sodium Chloride (Julio-Syneph/NS) 500 ml @ 18.75 mls/ hr TITRATE IV ; Start 09/10/16 at 10:00 Miscellaneous Information PLEASE CHANGE ALL IVPB F... DAILY XX Last administered on 09/19/16 08:16; Admin Dose 1 EA; Start 09/10/16 at 08:30 Vasopressin 60 unit/Sodium Chloride 103 ml @ 0 mls/hr Q12H IVPB ; Start at 09:00; Status Future Hold Total Parenteral Nutrition 1,000 ml @ 40 mls/hr Q24H IV Last administered on 00:51; Admin Dose 40 MLS/HR; Start 09/11/16 at 16:00 Fat Emulsion Intravenous 500 ml @ 20.833 mls/ hr Q24H IV Last administered on 09/18/16 16:11; Admin Dose 20.833 MLS/HR; Start 09/11/16 at 16:00 Norepinephrine 16 mg/Sodium Chloride 500 ml @ 0 mls/hr TITRATE IV Last administered on 09/15/16 11:53; Admin Dose 3.75 MLS/HR; Start 09/11/16 at 20:31 Fentanyl (Sublimaze) 100 ml @ 5 mls/hr TITRATE IV Last administered on 06:40; Admin Dose 10 MLS/HR; Start 09/13/16 at 07:45 Hydrocortisone (Solu-Cortef) 50 mg Q8 IV Last administered on 09/19/16 05:33; Admin Dose 50 MG; Start 09/13/16 at 14:00 Lorazepam 1 mg 1 mg Q4 PRN IV ANXIETY Last administered on 09/17/16 11:43; Admin Dose 1 MG; Start 09/14/16 at 06:30 Midazolam HCl (Versed) 50 ml @ 1 mls/hr TITRATE IV ; Start 09/14/16 at 10:30 Insulin Aspart (Novolog Insulin Pen) NOVOLOG *MILD* ALGORI... Q6 SC Last administered on 09/19/16 00:50; Admin Dose 1 UNIT; Start 09/16/16 at 00:00 Collagenase 1 applic 1 applic DAILY TOP Last administered on 09/18/16 08:01; Admin Dose 1 APPLIC; Start 09/17/16 at 09:00 Vancomycin HCl (Vancocin) 100 ml @ 100 mls/hr Q36H IVPB Last administered on 20:42; Admin Dose 100 MLS/HR; Start 09/17/16 at 08:00 BIN MITTAL NP Sep 19, 2016 14:02
--- NOTE | 2016-09-19 15:13 | PN ---
Date/Time of Note Date/Time of Note DATE: 09/19/16 TIME: 15:12 Assessment/Plan VTE Prophylaxis VTE Prophylaxis Intervention: SCD's Lines/Catheters Urinary Cath still in place: No Assessment/Plan Chief Complaint/Hosp Course 1. Severe systemic systemic inflammatory response syndrome with shock in patient with known metastatic cancer likely due to sepsis 2. Post colonoscopy perforated viscus: improved Large pelvic mass invading colon wall site of perforation Contrast leakage to pelvic area: not seen on last CT Contained perforation as no evidence of generalized peritonitis 3. 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 Chronic ureteral obstruction from #3 s/p nephrostomy tube bilateral 5. Severe cardiomyopathy with EF 20% thought to be likely ischemic 6. Occult GI bleed secondary to metastatic mass 7. Recurrent anemia requiring transfusion secondary to the above 8. Acute respiratory failure secondary to profound septic shock 9. Underlying abdominal ileus secondary to an obstructing sigmoid colon mass with patient now on TPN 10. Severe LE edema and anasarca 2/2 mass effect PLAN: Continue intensive care unit monitoring. Continue to wean pressors to keep systolic blood pressure above 90 Continue vent management and weaning if able, patient's family would like trach placement if cannot wean off vent, palliative care is following Serial lab monitoring and electrolyte replacement Started on steroids per pulmonary Continue digoxin per cardiology Continue empiric broad-spectrum antibiotics for sepsis in an immunosuppressed patient with unclear source Definitely not a candidate for any form of cancer therapy at this point Stapler Coil Unit management and recommendations is appreciated Deep venous thrombosis prophylaxis. Bilateral sequential compression devices. Gastrointestinal prophylaxis. Proton pump inhibitors. Extremely poor prognosis, family conference tomorrow Problems: Subjective 24 Hr Interval Summary Subjective hx not possible: pt non-verbal Exam/Review of Systems Vital Signs Vitals Vital Signs Date Time Temp Pulse Resp B/P Pulse Ox O2 Delivery O2 Flow Rate FiO2 09/19/16 14:00 95 22 101/62 100 Mechanical Ventilator 09/19/16 12:00 30 09/19/16 12:00 98.9 Intake and Output 09/18/16 09/18/16 09/19/16 15:00 23:00 07:00 Intake Total 768 ml 847 ml 611 ml Output Total 980 ml 710 ml 1310 ml Balance -212 ml 137 ml -699 ml Exam Constitutional: non-verbal ENMT: intubated Respiratory: clear to auscultation Cardiovascular: regular rate and rhythm Gastrointestinal: soft, No distended Musculoskeletal: nl extremities to inspection Results Result Diagram: 09/17/16 0500 09/19/16 0415 Results 24 hrs Laboratory Tests Test 09/18/16 17:29 09/19/16 00:22 09/19/16 04:15 09/19/16 05:42 Bedside Glucose 131 152 123 Sodium Level 139 Potassium Level 3.5 Chloride Level 106 Carbon Dioxide Level 23 Anion Gap 14 Blood Urea Nitrogen 34 H Creatinine 0.93 Glucose Level 111 Calcium Level 9.4 Phosphorus Level 3.9 Magnesium Level 2.1 Test 09/19/16 12:33 Bedside Glucose 136 Medications Medications Current Medications Acetaminophen (Tylenol Tab) 650 mg Q6H PRN PO PAIN LEVEL 1-3 OR FEVER; Start at 18:30 Morphine Sulfate (morphine) 2 mg Q4H PRN IV SEVERE PAIN LEVEL 7-10 Last administered on 09/19/16 05:41; Admin Dose 2 MG; Start 09/05/16 at 18:30 Docusate Sodium (Colace) 100 mg Q12H PRN PO CONSTIPATION; Start 09/05/16 at 18: 30 Magnesium Hydroxide (Milk Of Mag) 30 ml DAILY PRN PO CONSTIPATION; Start at 18:30 Sodium Biphosphate/ Sodium Phosphate 133 ml 133 ml DAILY PRN [place] CONSTIPATION; Start 09/05/16 at 18:30 Piperacillin Sod/ Tazobactam Sod (Zosyn 2.25gm/ 50ml (Pmx)) 50 ml @ 100 mls/hr Q6 IVPB Last administered on 09/19/16 12:33; Admin Dose 100 MLS/HR; Start 09/06 at 00:00 Vancomycin HCl (Vanco Iv Per Pharmacy) VANCOMYCIN PER PHARMACY NOTE XX ; Start 09/05/16 at 18:30 Hydralazine HCl (Apresoline) 10 mg Q6H PRN IV ELEVATED BLOOD PRESSURE; Start at 18:30 Nitroglycerin (Nitroglycerin (Sl Tab) 0.4 Mg) 1 tab Q5M PRN SL ANGINA; Start at 18:30 Miscellaneous Information 1 ea NOTE XX ; Start 09/05/16 at 19:00 Glucose (Glutose) 15 gm Q15M PRN PO DECREASED GLUCOSE; Start 09/05/16 at 19:00 Glucose (Glutose) 22.5 gm Q15M PRN PO DECREASED GLUCOSE; Start 09/05/16 at 19: 00 Dextrose (D50w Syringe) 25 ml Q15M PRN IV DECREASED GLUCOSE; Start 09/05/16 at 19:00 Dextrose (D50w Syringe) 50 ml Q15M PRN IV DECREASED GLUCOSE; Start 09/05/16 at 19:00 Glucagon (Glucagen) 1 mg Q15M PRN IM DECREASED GLUCOSE; Start 09/05/16 at 19:00 Glucose 15 gm 15 gm Q15M PRN BUCCAL DECREASED GLUCOSE; Start 09/05/16 at 19:00 Ondansetron HCl/ Sodium Chloride (Zofran Inj/NS) 54 ml @ 216 mls/hr Q6H PRN IV NAUSEA AND/OR VOMITING Last administered on 09/07/16 17:27; Admin Dose 216 MLS/HR; Start 09/06/16 at 10:30 Pantoprazole 40 mg 40 mg BID@06,18 IV Last administered on 09/19/16 05:33; Admin Dose 40 MG; Start 09/08/16 at 18:00 Fluconazole/ Sodium Chloride 50 ml @ 50 mls/hr Q24H IVPB Last administered on 14:36; Admin Dose 50 MLS/HR; Start 09/09/16 at 14:30 Phenylephrine HCl/ Sodium Chloride (Julio-Syneph/NS) 500 ml @ 18.75 mls/ hr TITRATE IV ; Start 09/10/16 at 10:00 Miscellaneous Information PLEASE CHANGE ALL IVPB F... DAILY XX Last administered on 09/19/16 08:16; Admin Dose 1 EA; Start 09/10/16 at 08:30 Vasopressin 60 unit/Sodium Chloride 103 ml @ 0 mls/hr Q12H IVPB ; Start at 09:00; Status Future Hold Total Parenteral Nutrition 1,000 ml @ 40 mls/hr Q24H IV Last administered on 00:51; Admin Dose 40 MLS/HR; Start 09/11/16 at 16:00 Fat Emulsion Intravenous 500 ml @ 20.833 mls/ hr Q24H IV Last administered on 09/18/16 16:11; Admin Dose 20.833 MLS/HR; Start 09/11/16 at 16:00 Norepinephrine 16 mg/Sodium Chloride 500 ml @ 0 mls/hr TITRATE IV Last administered on 09/15/16 11:53; Admin Dose 3.75 MLS/HR; Start 09/11/16 at 20:31 Fentanyl (Sublimaze) 100 ml @ 5 mls/hr TITRATE IV Last administered on 06:40; Admin Dose 10 MLS/HR; Start 09/13/16 at 07:45 Hydrocortisone (Solu-Cortef) 50 mg Q8 IV Last administered on 09/19/16 05:33; Admin Dose 50 MG; Start 09/13/16 at 14:00 Lorazepam 1 mg 1 mg Q4 PRN IV ANXIETY Last administered on 09/17/16 11:43; Admin Dose 1 MG; Start 09/14/16 at 06:30 Midazolam HCl (Versed) 50 ml @ 1 mls/hr TITRATE IV ; Start 09/14/16 at 10:30 Insulin Aspart (Novolog Insulin Pen) NOVOLOG *MILD* ALGORI... Q6 SC Last administered on 09/19/16 00:50; Admin Dose 1 UNIT; Start 09/16/16 at 00:00 Collagenase 1 applic 1 applic DAILY TOP Last administered on 09/18/16 08:01; Admin Dose 1 APPLIC; Start 09/17/16 at 09:00 Vancomycin HCl (Vancocin) 100 ml @ 100 mls/hr Q36H IVPB Last administered on 20:42; Admin Dose 100 MLS/HR; Start 09/17/16 at 08:00 CHERRI ALAN Sep 19, 2016 15:13
--- NOTE | 2016-09-19 16:07 | PN ---
DATE: 09/19/2016 CARDIOLOGY FOLLOWUP SUBJECTIVE: Discussed with the staff. Rhythm strip was reviewed. The patient remains intubated on the vent, has failed extubation currently. Blood pressure has remained stable off of pressors. MEDICATIONS: Reviewed. PHYSICAL EXAMINATION: VITAL SIGNS: Temperature 98.9, heart rate of 95, blood pressure 101/63, respiratory rate 20, satura ting 100%. HEENT: Normocephalic, atraumatic. Status post intubation on the vent. Appears in respiratory dist ress, tachypneic. CARDIOVASCULAR: Regular rate and rhythm, systolic murmur. PULMONARY: Anteriorly with no wheezes now. GASTROINTESTINAL: Soft. No rebound, no guarding. EXTREMITIES: With diffuse lower extremity edema. NEUROLOGIC: Awake, responds appropriately. PSYCHIATRIC: Appears to be calm. LABORATORY DATA: WBC of 10.2, hemoglobin 10.0, platelets of 46. Sodium 139, potassium 3.5, BUN of 34, creatinine 0.93, glucose 111. Magnesium is 2.1. ASSESSMENT AND PLAN: 1. Hypoxemic, hypercapnic respiratory failure, status post intubation on the vent, has failed weani ng. 2. Status post perforated bowel following colonoscopy. 3. History of metastatic cervical cancer. 4. Severe cardiomyopathy, most likely nonischemic. 5. Severe anemia. 6. Anasarca. 7. Severe lower extremity edema. RECOMMENDATIONS: Continue with supportive care. Has failed weaning so far. Blood pressure remains low but stable at this point. ICU care will be continued. Vent support will be continued. Family meeting again tomorrow. May need tracheostomy if the patient continues to be unable to be weaned o ff. Dictated By: JIM HARRIS/EHSAN Conf#: [id number] DID#: [id number]
--- NOTE | 2016-09-19 16:14 | CONS ---
Date/Time of Note Date/Time of Note DATE: 09/19/16 TIME: 16:10 Assessment/Plan Assessment/Plan Chief Complaint/Hosp Course 61 yo with metastatic cervical cancer s/p chemotherapy , immunotherapy and radiation. Pt has not had chemotherapy or immunotherapy in over a year. 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 It seems that the [facility] oncologist does believe this patient is a candidate for more therapy at this time. Pt underwent a colonoscopy and suffered from a perforated sigmoid colon . She is currently in septic shock and has since been weaned off the pressors. Pt now has ARDS and has started pressors #Metastatic Cervical Cancer -at this time, patient has an extremely poor functional status and is in a critical state in the ICU. there is no oncologic treatment that can be given at this time while she is critically ill. -family still wants patient to be full code -continue critical care supportive care. # ARDS - -continue steroids per pulmonary # Anemia -likely from underlying sepsis and GI bleed -pt is now s/p blood transfusion. -will transfuse if Hg < 8 #Perforated Sigmoid colon -pt currently not a surgical candidate currently given her current critical condition functional status -surgery is following #Brain Mets -per the son, pt was told that she was not a candidate for post op brain radiation. #Sepsis - lactate has now normalized. this is likely secondary to the urosepsis as well as sigmoid bowel perforation -continue broad spectrum antibiotics -appreciate ID recs Will sign off. As stated pt is not a candidate for any oncologic treatments. Agree with comfort measures approximately 1 hour was spent at patient's bedside, with her family, and coordination of her care Problems: Consultation Date/Type/Reason Admit Date/Time September 05, 2016 at 16:23 Initial Consult Date 09/06/16 Type of Consultation: hematology Reason for Consultation ovarian cancer Referring Provider: ONEIDA COLEMAN 24 HR Interval Summary Free Text/Dictation pt remains intubated in a critical state. Subjective hx not possible: pt non-verbal Exam/Review of Systems Vital Signs Vitals Vital Signs Date Time Temp Pulse Resp B/P Pulse Ox O2 Delivery O2 Flow Rate FiO2 09/19/16 14:00 95 22 101/62 100 Mechanical Ventilator 09/19/16 12:00 30 09/19/16 12:00 98.9 Intake and Output 09/18/16 09/18/16 09/19/16 14:59 22:59 06:59 Intake Total 868 ml 747 ml 718 ml Output Total 740 ml 950 ml 1310 ml Balance 128 ml -203 ml -592 ml Exam Constitutional: alert, other (awake) ENMT: intubated Neck: supple Respiratory: crackles/rales Cardiovascular: regular rate and rhythm Gastrointestinal: distended Extremities: edema Results Result Diagram: 09/17/16 0500 09/19/16 0415 Results 24 hrs Laboratory Tests Test 09/18/16 17:29 09/19/16 00:22 09/19/16 04:15 09/19/16 05:42 Bedside Glucose 131 152 123 Sodium Level 139 Potassium Level 3.5 Chloride Level 106 Carbon Dioxide Level 23 Anion Gap 14 Blood Urea Nitrogen 34 H Creatinine 0.93 Glucose Level 111 Calcium Level 9.4 Phosphorus Level 3.9 Magnesium Level 2.1 Test 09/19/16 12:33 Bedside Glucose 136 Medications Medications Current Medications Acetaminophen (Tylenol Tab) 650 mg Q6H PRN PO PAIN LEVEL 1-3 OR FEVER; Start at 18:30 Morphine Sulfate (morphine) 2 mg Q4H PRN IV SEVERE PAIN LEVEL 7-10 Last administered on 09/19/16 05:41; Admin Dose 2 MG; Start 09/05/16 at 18:30 Docusate Sodium (Colace) 100 mg Q12H PRN PO CONSTIPATION; Start 09/05/16 at 18: 30 Magnesium Hydroxide (Milk Of Mag) 30 ml DAILY PRN PO CONSTIPATION; Start at 18:30 Sodium Biphosphate/ Sodium Phosphate 133 ml 133 ml DAILY PRN [place] CONSTIPATION; Start 09/05/16 at 18:30 Piperacillin Sod/ Tazobactam Sod (Zosyn 2.25gm/ 50ml (Pmx)) 50 ml @ 100 mls/hr Q6 IVPB Last administered on 09/19/16 12:33; Admin Dose 100 MLS/HR; Start 09/06 at 00:00 Vancomycin HCl (Vanco Iv Per Pharmacy) VANCOMYCIN PER PHARMACY NOTE XX ; Start 09/05/16 at 18:30 Hydralazine HCl (Apresoline) 10 mg Q6H PRN IV ELEVATED BLOOD PRESSURE; Start at 18:30 Nitroglycerin (Nitroglycerin (Sl Tab) 0.4 Mg) 1 tab Q5M PRN SL ANGINA; Start at 18:30 Miscellaneous Information 1 ea NOTE XX ; Start 09/05/16 at 19:00 Glucose (Glutose) 15 gm Q15M PRN PO DECREASED GLUCOSE; Start 09/05/16 at 19:00 Glucose (Glutose) 22.5 gm Q15M PRN PO DECREASED GLUCOSE; Start 09/05/16 at 19: 00 Dextrose (D50w Syringe) 25 ml Q15M PRN IV DECREASED GLUCOSE; Start 09/05/16 at 19:00 Dextrose (D50w Syringe) 50 ml Q15M PRN IV DECREASED GLUCOSE; Start 09/05/16 at 19:00 Glucagon (Glucagen) 1 mg Q15M PRN IM DECREASED GLUCOSE; Start 09/05/16 at 19:00 Glucose 15 gm 15 gm Q15M PRN BUCCAL DECREASED GLUCOSE; Start 09/05/16 at 19:00 Ondansetron HCl/ Sodium Chloride (Zofran Inj/NS) 54 ml @ 216 mls/hr Q6H PRN IV NAUSEA AND/OR VOMITING Last administered on 09/07/16 17:27; Admin Dose 216 MLS/HR; Start 09/06/16 at 10:30 Pantoprazole 40 mg 40 mg BID@06,18 IV Last administered on 09/19/16 05:33; Admin Dose 40 MG; Start 09/08/16 at 18:00 Fluconazole/ Sodium Chloride 50 ml @ 50 mls/hr Q24H IVPB Last administered on 14:36; Admin Dose 50 MLS/HR; Start 09/09/16 at 14:30 Phenylephrine HCl/ Sodium Chloride (Julio-Syneph/NS) 500 ml @ 18.75 mls/ hr TITRATE IV ; Start 09/10/16 at 10:00 Miscellaneous Information PLEASE CHANGE ALL IVPB F... DAILY XX Last administered on 09/19/16 08:16; Admin Dose 1 EA; Start 09/10/16 at 08:30 Vasopressin 60 unit/Sodium Chloride 103 ml @ 0 mls/hr Q12H IVPB ; Start at 09:00; Status Future Hold Fat Emulsion Intravenous 500 ml @ 20.833 mls/ hr Q24H IV Last administered on 09/18/16 16:11; Admin Dose 20.833 MLS/HR; Start 09/11/16 at 16:00 Norepinephrine 16 mg/Sodium Chloride 500 ml @ 0 mls/hr TITRATE IV Last administered on 09/15/16 11:53; Admin Dose 3.75 MLS/HR; Start 09/11/16 at 20:31 Fentanyl (Sublimaze) 100 ml @ 5 mls/hr TITRATE IV Last administered on 06:40; Admin Dose 10 MLS/HR; Start 09/13/16 at 07:45 Hydrocortisone (Solu-Cortef) 50 mg Q8 IV Last administered on 09/19/16 05:33; Admin Dose 50 MG; Start 09/13/16 at 14:00 Lorazepam 1 mg 1 mg Q4 PRN IV ANXIETY Last administered on 09/17/16 11:43; Admin Dose 1 MG; Start 09/14/16 at 06:30 Midazolam HCl (Versed) 50 ml @ 1 mls/hr TITRATE IV ; Start 09/14/16 at 10:30 Insulin Aspart (Novolog Insulin Pen) NOVOLOG *MILD* ALGORI... Q6 SC Last administered on 09/19/16 00:50; Admin Dose 1 UNIT; Start 09/16/16 at 00:00 Collagenase 1 applic 1 applic DAILY TOP Last administered on 09/18/16 08:01; Admin Dose 1 APPLIC; Start 09/17/16 at 09:00 Vancomycin HCl 100 ml @ 100 mls/hr Q36H IVPB Last administered on 09/18/16 20: 42; Admin Dose 100 MLS/HR; Start 09/17/16 at 08:00 Total Parenteral Nutrition (Tpn) 1,000 ml @ 40 mls/hr Q24H IV ; Start 09/19/16 at 16:00 MINOO SOTO M.D. Sep 19, 2016 16:14
[2016-09-19] MEDS: FAT EMULSION 20% 500 ML IV SCH (16:23)
[2016-09-19] MEDS: FLUCONAZOLE 100 MG/NS (PMX) 50 ML IVPB SCH (16:24)
--- NOTE | 2016-09-19 16:25 | CONS ---
Date/Time of Note Date/Time of Note DATE: 09/19/16 TIME: 16:22 Consult Date/Type/Reason Admit Date/Time September 05, 2016 at 16:23 Initial Consult Date 09/06/16 Type of Consultation: Palliative CARE Ordering Provider: MORIAH GARRIDO Ms. Dickinson remains in the intensive care unit, critically ill, remains intubated. I have spoken to family members numerous times to bring them up to date about their ongoing hopes, fears, understanding about the patient's current medical condition. Apparently when she has some sedation medication she does follow simple commands, but she is not extubatable. I will speak to family members again. Primary decision maker is patient's daughter, although the entire family is in attendance the majority of the time. Code status should be addressed at this time. I will organize a complete family conference again.FAMILY CONFERENCE SCHEDULED 09/20 Objective Vital Signs Date Time Temp Pulse Resp B/P Pulse Ox O2 Delivery O2 Flow Rate FiO2 09/19/16 14:00 95 22 101/62 100 Mechanical Ventilator 09/19/16 12:00 30 09/19/16 12:00 98.9 Intake and Output 09/18/16 09/18/16 09/19/16 15:00 23:00 07:00 Intake Total 768 ml 847 ml 611 ml Output Total 980 ml 710 ml 1310 ml Balance -212 ml 137 ml -699 ml Results/Medications Result Diagram: 09/17/16 0500 09/19/16 0415 Results 24 hrs Laboratory Tests Test 09/18/16 17:29 09/19/16 00:22 09/19/16 04:15 09/19/16 05:42 Bedside Glucose 131 152 123 Sodium Level 139 Potassium Level 3.5 Chloride Level 106 Carbon Dioxide Level 23 Anion Gap 14 Blood Urea Nitrogen 34 H Creatinine 0.93 Glucose Level 111 Calcium Level 9.4 Phosphorus Level 3.9 Magnesium Level 2.1 Test 09/19/16 12:33 Bedside Glucose 136 Medications Current Medications Acetaminophen (Tylenol Tab) 650 mg Q6H PRN PO PAIN LEVEL 1-3 OR FEVER; Start at 18:30 Morphine Sulfate (morphine) 2 mg Q4H PRN IV SEVERE PAIN LEVEL 7-10 Last administered on 09/19/16t 05:41; Admin Dose 2 MG; Start 09/05/16 at 18:30 Docusate Sodium (Colace) 100 mg Q12H PRN PO CONSTIPATION; Start 09/05/16 at 18: 30 Magnesium Hydroxide (Milk Of Mag) 30 ml DAILY PRN PO CONSTIPATION; Start at 18:30 Sodium Biphosphate/ Sodium Phosphate 133 ml 133 ml DAILY PRN [place] CONSTIPATION; Start 09/05/16 at 18:30 Piperacillin Sod/ Tazobactam Sod (Zosyn 2.25gm/ 50ml (Pmx)) 50 ml @ 100 mls/hr Q6 IVPB Last administered on 09/19/16 12:33; Admin Dose 100 MLS/HR; Start 09/06 at 00:00 Vancomycin HCl (Vanco Iv Per Pharmacy) VANCOMYCIN PER PHARMACY NOTE XX ; Start 09/05/16 at 18:30 Hydralazine HCl (Apresoline) 10 mg Q6H PRN IV ELEVATED BLOOD PRESSURE; Start at 18:30 Nitroglycerin (Nitroglycerin (Sl Tab) 0.4 Mg) 1 tab Q5M PRN SL ANGINA; Start at 18:30 Miscellaneous Information 1 ea NOTE XX ; Start 09/05/16 at 19:00 Glucose (Glutose) 15 gm Q15M PRN PO DECREASED GLUCOSE; Start 09/05/16 at 19:00 Glucose (Glutose) 22.5 gm Q15M PRN PO DECREASED GLUCOSE; Start 09/05/16 at 19: 00 Dextrose (D50w Syringe) 25 ml Q15M PRN IV DECREASED GLUCOSE; Start 09/05/16 at 19:00 Dextrose (D50w Syringe) 50 ml Q15M PRN IV DECREASED GLUCOSE; Start 09/05/16 at 19:00 Glucagon (Glucagen) 1 mg Q15M PRN IM DECREASED GLUCOSE; Start 09/05/16 at 19:00 Glucose 15 gm 15 gm Q15M PRN BUCCAL DECREASED GLUCOSE; Start 09/05/16 at 19:00 Ondansetron HCl/ Sodium Chloride (Zofran Inj/NS) 54 ml @ 216 mls/hr Q6H PRN IV NAUSEA AND/OR VOMITING Last administered on 09/07/16 17:27; Admin Dose 216 MLS/HR; Start 09/06/16 at 10:30 Pantoprazole 40 mg 40 mg BID@06,18 IV Last administered on 09/19/16 05:33; Admin Dose 40 MG; Start 09/08/16 at 18:00 Fluconazole/ Sodium Chloride 50 ml @ 50 mls/hr Q24H IVPB Last administered on 14:36; Admin Dose 50 MLS/HR; Start 09/09/16 at 14:30 Phenylephrine HCl/ Sodium Chloride (Julio-Syneph/NS) 500 ml @ 18.75 mls/ hr TITRATE IV ; Start 09/10/16 at 10:00 Miscellaneous Information PLEASE CHANGE ALL IVPB F... DAILY XX Last administered on 09/19/16 08:16; Admin Dose 1 EA; Start 09/10/16 at 08:30 Vasopressin 60 unit/Sodium Chloride 103 ml @ 0 mls/hr Q12H IVPB ; Start at 09:00; Status Future Hold Fat Emulsion Intravenous 500 ml @ 20.833 mls/ hr Q24H IV Last administered on 09/18/16 16:11; Admin Dose 20.833 MLS/HR; Start 09/11/16 at 16:00 Norepinephrine 16 mg/Sodium Chloride 500 ml @ 0 mls/hr TITRATE IV Last administered on 09/15/16 11:53; Admin Dose 3.75 MLS/HR; Start 09/11/16 at 20:31 Fentanyl (Sublimaze) 100 ml @ 5 mls/hr TITRATE IV Last administered on 06:40; Admin Dose 10 MLS/HR; Start 09/13/16 at 07:45 Hydrocortisone (Solu-Cortef) 50 mg Q8 IV Last administered on 09/19/16 05:33; Admin Dose 50 MG; Start 09/13/16 at 14:00 Lorazepam 1 mg 1 mg Q4 PRN IV ANXIETY Last administered on 09/17/16 11:43; Admin Dose 1 MG; Start 09/14/16 at 06:30 Midazolam HCl (Versed) 50 ml @ 1 mls/hr TITRATE IV ; Start 09/14/16 at 10:30 Insulin Aspart (Novolog Insulin Pen) NOVOLOG *MILD* ALGORI... Q6 SC Last administered on 09/19/16 00:50; Admin Dose 1 UNIT; Start 09/16/16 at 00:00 Collagenase 1 applic 1 applic DAILY TOP Last administered on 09/18/16 08:01; Admin Dose 1 APPLIC; Start 09/17/16 at 09:00 Vancomycin HCl 100 ml @ 100 mls/hr Q36H IVPB Last administered on 09/18/16 20: 42; Admin Dose 100 MLS/HR; Start 09/17/16 at 08:00 Total Parenteral Nutrition (Tpn) 1,000 ml @ 40 mls/hr Q24H IV ; Start 09/19/16 at 16:00 MORIAH GARRIDO Sep 19, 2016 16:25
--- NOTE | 2016-09-19 16:37 | CONS ---
Date/Time of Note Date/Time of Note DATE: 09/19/16 TIME: 16:25 Consult Date/Type/Reason Admit Date/Time September 05, 2016 at 16:23 Initial Consult Date 09/06/16 Type of Consultation: Palliative CARE Ordering Provider: MORIAH GARRIDO Objective Vital Signs Date Time Temp Pulse Resp B/P Pulse Ox O2 Delivery O2 Flow Rate FiO2 09/19/16 14:00 95 22 101/62 100 Mechanical Ventilator 09/19/16 12:00 30 09/19/16 12:00 98.9 Intake and Output 09/18/16 09/18/16 09/19/16 15:00 23:00 07:00 Intake Total 768 ml 847 ml 611 ml Output Total 980 ml 710 ml 1310 ml Balance -212 ml 137 ml -699 ml Results/Medications Result Diagram: 09/17/16 0500 09/19/16 0415 Results 24 hrs Laboratory Tests Test 09/18/16 17:29 09/19/16 00:22 09/19/16 04:15 09/19/16 05:42 Bedside Glucose 131 152 123 Sodium Level 139 Potassium Level 3.5 Chloride Level 106 Carbon Dioxide Level 23 Anion Gap 14 Blood Urea Nitrogen 34 H Creatinine 0.93 Glucose Level 111 Calcium Level 9.4 Phosphorus Level 3.9 Magnesium Level 2.1 Test 09/19/16 12:33 Bedside Glucose 136 Medications Current Medications Acetaminophen (Tylenol Tab) 650 mg Q6H PRN PO PAIN LEVEL 1-3 OR FEVER; Start at 18:30 Morphine Sulfate (morphine) 2 mg Q4H PRN IV SEVERE PAIN LEVEL 7-10 Last administered on 09/19/16 05:41; Admin Dose 2 MG; Start 09/05/16 at 18:30 Docusate Sodium (Colace) 100 mg Q12H PRN PO CONSTIPATION; Start 09/05/16 at 18: 30 Magnesium Hydroxide (Milk Of Mag) 30 ml DAILY PRN PO CONSTIPATION; Start at 18:30 Sodium Biphosphate/ Sodium Phosphate 133 ml [address] CONSTIPATION; Start 09/05/16 at 18:30 Piperacillin Sod/ Tazobactam Sod (Zosyn 2.25gm/ 50ml (Pmx)) 50 ml @ 100 mls/hr Q6 IVPB Last administered on 09/19/16 12:33; Admin Dose 100 MLS/HR; Start 09/06 at 00:00 Vancomycin HCl (Vanco Iv Per Pharmacy) VANCOMYCIN PER PHARMACY NOTE XX ; Start 09/05/16 at 18:30 Hydralazine HCl (Apresoline) 10 mg Q6H PRN IV ELEVATED BLOOD PRESSURE; Start at 18:30 Nitroglycerin (Nitroglycerin (Sl Tab) 0.4 Mg) 1 tab Q5M PRN SL ANGINA; Start at 18:30 Miscellaneous Information 1 ea NOTE XX ; Start 09/05/16 at 19:00 Glucose (Glutose) 15 gm Q15M PRN PO DECREASED GLUCOSE; Start 09/05/16 at 19:00 Glucose (Glutose) 22.5 gm Q15M PRN PO DECREASED GLUCOSE; Start 09/05/16 at 19: 00 Dextrose (D50w Syringe) 25 ml Q15M PRN IV DECREASED GLUCOSE; Start 09/05/16 at 19:00 Dextrose (D50w Syringe) 50 ml Q15M PRN IV DECREASED GLUCOSE; Start 09/05/16 at 19:00 Glucagon (Glucagen) 1 mg Q15M PRN IM DECREASED GLUCOSE; Start 09/05/16 at 19:00 Glucose 15 gm 15 gm Q15M PRN BUCCAL DECREASED GLUCOSE; Start 09/05/16 at 19:00 Ondansetron HCl/ Sodium Chloride (Zofran Inj/NS) 54 ml @ 216 mls/hr Q6H PRN IV NAUSEA AND/OR VOMITING Last administered on 09/07/16 17:27; Admin Dose 216 MLS/HR; Start 09/06/16 at 10:30 Pantoprazole 40 mg 40 mg BID@06,18 IV Last administered on 09/19/16 05:33; Admin Dose 40 MG; Start 09/08/16 at 18:00 Fluconazole/ Sodium Chloride 50 ml @ 50 mls/hr Q24H IVPB Last administered on 14:36; Admin Dose 50 MLS/HR; Start 09/09/16 at 14:30 Phenylephrine HCl/ Sodium Chloride (Julio-Syneph/NS) 500 ml @ 18.75 mls/ hr TITRATE IV ; Start 09/10/16 at 10:00 Miscellaneous Information PLEASE CHANGE ALL IVPB F... DAILY XX Last administered on 09/19/16 08:16; Admin Dose 1 EA; Start 09/10/16 at 08:30 Vasopressin 60 unit/Sodium Chloride 103 ml @ 0 mls/hr Q12H IVPB ; Start at 09:00; Status Future Hold Fat Emulsion Intravenous 500 ml @ 20.833 mls/ hr Q24H IV Last administered on 09/18/16 16:11; Admin Dose 20.833 MLS/HR; Start 09/11/16 at 16:00 Norepinephrine 16 mg/Sodium Chloride 500 ml @ 0 mls/hr TITRATE IV Last administered on 09/15/16 11:53; Admin Dose 3.75 MLS/HR; Start 09/11/16 at 20:31 Fentanyl (Sublimaze) 100 ml @ 5 mls/hr TITRATE IV Last administered on 06:40; Admin Dose 10 MLS/HR; Start 09/13/16 at 07:45 Hydrocortisone (Solu-Cortef) 50 mg Q8 IV Last administered on 09/19/16 05:33; Admin Dose 50 MG; Start 09/13/16 at 14:00 Lorazepam 1 mg 1 mg Q4 PRN IV ANXIETY Last administered on 09/17/16 11:43; Admin Dose 1 MG; Start 09/14/16 at 06:30 Midazolam HCl (Versed) 50 ml @ 1 mls/hr TITRATE IV ; Start 09/14/16 at 10:30 Insulin Aspart (Novolog Insulin Pen) NOVOLOG *MILD* ALGORI... Q6 SC Last administered on 09/19/16 00:50; Admin Dose 1 UNIT; Start 09/16/16 at 00:00 Collagenase 1 applic 1 applic DAILY TOP Last administered on 09/18/16 08:01; Admin Dose 1 APPLIC; Start 09/17/16 at 09:00 Vancomycin HCl 100 ml @ 100 mls/hr Q36H IVPB Last administered on 09/18/16 20: 42; Admin Dose 100 MLS/HR; Start 09/17/16 at 08:00 Total Parenteral Nutrition (Tpn) 1,000 ml @ 40 mls/hr Q24H IV ; Start 09/19/16 at 16:00 Assessment/Plan Additional Assessment/Plan Respiratory Failure Mets Cervical cancer Hopes Code Hopes.. To be determined as post discussion with family Fear Ethical Spiritural Family Discussion Participant Quality of life... Prognosis POLST Goals of care In the past family have decided to pursue aggressive care. I have spoke to him about trach on 09/18 We will readdress again tomorrow 09/20 MORIAH GARRIDO Sep 19, 2016 16:36
[2016-09-20] VITALS (37 sets, daily range): BP systolic 86–125; BP diastolic 58–84; PULSE 89–112; RESP 14–37
[2016-09-20] MEDS: PIPER-TAZO 2.25 GM (PMX) 50 ML IVPB SCH ×4 (00:25→18:29)
[2016-09-20] MEDS: FENTAnyl (DRIP) 1000 mcg/100mL 100 ML IV SCH ×3 (02:53→21:20)
[2016-09-20 05:04] LABS: ADD SCAN DIFF NO
[2016-09-20 05:12] LABS: ABNORMAL IP MESSAGE 1; HEMATOCRIT 27.9 % (37.0-47.0); HEMOGLOBIN 9.4 g/dl (12.0-16.0); MEAN CORPUSCULAR HEMOGLOBIN 30.5 pg (29.0-33.0); MEAN CORPUSCULAR HGB CONC 33.7 g/dl (32.0-37.0); MEAN CORPUSCULAR VOLUME 90.6 fl (82.0-101.0); MEAN PLATELET VOLUME 12.8 fl (7.4-10.4); PLATELET COUNT 84 10^3/UL (140-415); RED BLOOD COUNT 3.08 10^6/ul (4.20-5.40); RED CELL DISTRIBUTION WIDTH 21.7 % (11.5-14.5); WHITE BLOOD COUNT 10.4 10^3/ul (4.8-10.8)
[2016-09-20 05:32] LABS: CALCIUM 9.1 mg/dl (8.4-10.2); CREATININE 0.9 mg/dl (0.44-1.00); MAGNESIUM 2.1 mg/dl (1.7-2.5); PHOSPHORUS 3.8 mg/dl (2.5-4.9); POTASSIUM 3.6 mmol/L (3.5-5.1)
[2016-09-20] MEDS: LORAZEPAM 2 MG INJ IV PRN (05:56)
[2016-09-20] MEDS: PANTOPRAZOLE 40 MG INJ IV SCH ×2 (06:01→18:29)
[2016-09-20] MEDS: HYDROCORTISONE 100 MG INJ IV SCH ×3 (06:02→22:18)
[2016-09-20] MEDS: INSULIN ASPART [NOVOLOG] 3 ML PEN SC SCH ×4 (06:12→18:56)
[2016-09-20] MEDS: POTASSIUM CHLORIDE 50 ML IVPB PRN ×2 (06:43→08:22)
--- NOTE | 2016-09-20 07:02 | PN ---
Date/Time of Note Date/Time of Note DATE: 09/20/16 TIME: 06:59 Assessment/Plan VTE Prophylaxis VTE Prophylaxis Intervention: ambulation Lines/Catheters IV Catheter Type (from [facility]): PICC Line Central line still needed: No Urinary Cath still in place: No Assessment/Plan Assessment/Plan 1. Nonoliguric acute kidney injury with unknown baseline creatinine. Etiology is secondary to hemodynamics, sepsis. Renal function has improved. At this point, continue current treatment plan, supportive care, renally dose all meds. 2. History of hydronephrosis, status post bilateral nephrostomy tubes, currently stable. Continue current treatment plan. 3. Hyponatremia, improved. Continue free water restriction. 4. Volume overload secondary to CHF,. Continue Lasix, tolerating well. 5. Ventilator dependent respiratory failure. Vent settings have been reviewed. ABG is reviewed. Continue to monitor. 6. Sepsis, status post shock. The patient is currently off pressors. Continue current antibiotic regimen. 7. Perforated bowel. Continue to monitor. Follow up with general surgeon. No plans for surgery at this time. 8. Elevated troponin, non-STEMI. Continue medical management. 9. History of metastatic cervical cancer. Continue to monitor. 10. Cardiomyopathy. Continue medical management. 11. Anemia with possible GI bleed. Continue to monitor hemoglobin and hematocrit levels. 12. Nutrition. Continue TPN. Subjective 24 Hr Interval Summary Free Text/Dictation The patient is in critical but stable. No other acute events noted. No hemoptysis, hematemesis, or hematochezia. d/w RN Exam/Review of Systems Vital Signs Vitals Vital Signs Date Time Temp Pulse Resp B/P Pulse Ox O2 Delivery O2 Flow Rate FiO2 09/20/16 06:00 100 19 93/68 99 Mechanical Ventilator 09/20/16 05:03 30 09/20/16 00:00 97.6 Intake and Output 09/19/16 09/19/16 09/20/16 15:00 23:00 07:00 Intake Total 718 ml 341.5 ml 902.5 ml Output Total 700 ml 1360 ml 440 ml Balance 18 ml -1018.5 ml 462.5 ml Exam Head is normocephalic. NECK: Supple. HEART: Regular rate. LUNGS: Show diminished breath sounds at base. ABDOMEN: Soft, nontender to palpation without rebound or guarding. EXTREMITIES: Negative for clubbing, cyanosis. Positive edema, diffuse anasarca. DERMATOLOGIC: No rashes. MUSCULOSKELETAL: No joint effusions. NEUROLOGIC: No change in exam. Results Result Diagram: 09/20/16 0445 09/20/16 0445 Results 24 hrs Laboratory Tests Test 09/19/16 12:33 09/19/16 18:48 09/19/16 21:15 09/20/16 04:45 Bedside Glucose 136 136 130 White Blood Count 10.4 Red Blood Count 3.08 L Hemoglobin 9.4 L Hematocrit 27.9 L Mean Corpuscular Volume 90.6 Mean Corpuscular Hemoglobin 30.5 Mean Corpuscular Hemoglobin Concent 33.7 Red Cell Distribution Width 21.7 H Platelet Count 84 #L Mean Platelet Volume 12.8 H Neutrophils % Eosinophils % Neutrophils # Eosinophils # Sodium Level 140 Potassium Level 3.6 Chloride Level 108 Carbon Dioxide Level 24 Anion Gap 12 Blood Urea Nitrogen 36 H Creatinine 0.90 Glucose Level 153 Calcium Level 9.1 Phosphorus Level 3.8 Magnesium Level 2.1 Test 09/20/16 06:09 Bedside Glucose 148 Medications Medications Current Medications Acetaminophen (Tylenol Tab) 650 mg Q6H PRN PO PAIN LEVEL 1-3 OR FEVER; Start at 18:30 Morphine Sulfate (morphine) 2 mg Q4H PRN IV SEVERE PAIN LEVEL 7-10 Last administered on 09/19/16 05:41; Admin Dose 2 MG; Start 09/05/16 at 18:30 Docusate Sodium (Colace) 100 mg Q12H PRN PO CONSTIPATION; Start 09/05/16 at 18: 30 Magnesium Hydroxide (Milk Of Mag) 30 ml DAILY PRN PO CONSTIPATION; Start at 18:30 Sodium Biphosphate/ Sodium Phosphate 133 ml 133 ml DAILY PRN [place] CONSTIPATION; Start 09/05/16 at 18:30 Piperacillin Sod/ Tazobactam Sod (Zosyn 2.25gm/ 50ml (Pmx)) 50 ml @ 100 mls/hr Q6 IVPB Last administered on 09/20/16 06:01; Admin Dose 100 MLS/HR; Start at 00:00 Vancomycin HCl (Vanco Iv Per Pharmacy) VANCOMYCIN PER PHARMACY NOTE XX ; Start 09/05/16 at 18:30 Hydralazine HCl (Apresoline) 10 mg Q6H PRN IV ELEVATED BLOOD PRESSURE; Start at 18:30 Nitroglycerin (Nitroglycerin (Sl Tab) 0.4 Mg) 1 tab Q5M PRN SL ANGINA; Start at 18:30 Miscellaneous Information 1 ea NOTE XX ; Start 09/05/16 at 19:00 Glucose (Glutose) 15 gm Q15M PRN PO DECREASED GLUCOSE; Start 09/05/16 at 19:00 Glucose (Glutose) 22.5 gm Q15M PRN PO DECREASED GLUCOSE; Start 09/05/16 at 19: 00 Dextrose (D50w Syringe) 25 ml Q15M PRN IV DECREASED GLUCOSE; Start 09/05/16 at 19:00 Dextrose (D50w Syringe) 50 ml Q15M PRN IV DECREASED GLUCOSE; Start 09/05/16 at 19:00 Glucagon (Glucagen) 1 mg Q15M PRN IM DECREASED GLUCOSE; Start 09/05/16 at 19:00 Glucose 15 gm 15 gm Q15M PRN BUCCAL DECREASED GLUCOSE; Start 09/05/16 at 19:00 Ondansetron HCl/ Sodium Chloride (Zofran Inj/NS) 54 ml @ 216 mls/hr Q6H PRN IV NAUSEA AND/OR VOMITING Last administered on 09/07/16 17:27; Admin Dose 216 MLS/HR; Start 09/06/16 at 10:30 Pantoprazole 40 mg 40 mg BID@06,18 IV Last administered on 09/20/16 06:01; Admin Dose 40 MG; Start 09/08/16 at 18:00 Fluconazole/ Sodium Chloride 50 ml @ 50 mls/hr Q24H IVPB Last administered on 16:24; Admin Dose 50 MLS/HR; Start 09/09/16 at 14:30 Phenylephrine HCl/ Sodium Chloride (Julio-Syneph/NS) 500 ml @ 18.75 mls/ hr TITRATE IV ; Start 09/10/16 at 10:00 Miscellaneous Information PLEASE CHANGE ALL IVPB F... DAILY XX Last administered on 09/19/16 08:16; Admin Dose 1 EA; Start 09/10/16 at 08:30 Vasopressin 60 unit/Sodium Chloride 103 ml @ 0 mls/hr Q12H IVPB ; Start at 09:00; Status Future Hold Fat Emulsion Intravenous 500 ml @ 20.833 mls/ hr Q24H IV Last administered on 09/19/16 16:23; Admin Dose 20.833 MLS/HR; Start 09/11/16 at 16:00 Norepinephrine 16 mg/Sodium Chloride 500 ml @ 0 mls/hr TITRATE IV Last administered on 09/15/16 11:53; Admin Dose 3.75 MLS/HR; Start 09/11/16 at 20:31 Fentanyl (Sublimaze) 100 ml @ 5 mls/hr TITRATE IV Last administered on 02:53; Admin Dose 10 MLS/HR; Start 09/13/16 at 07:45 Hydrocortisone (Solu-Cortef) 50 mg Q8 IV Last administered on 09/20/16 06:02; Admin Dose 50 MG; Start 09/13/16 at 14:00 Lorazepam 1 mg 1 mg Q4 PRN IV ANXIETY Last administered on 09/20/16 05:56; Admin Dose 1 MG; Start 09/14/16 at 06:30 Midazolam HCl (Versed) 50 ml @ 1 mls/hr TITRATE IV ; Start 09/14/16 at 10:30 Insulin Aspart (Novolog Insulin Pen) NOVOLOG *MILD* ALGORI... Q6 SC Last administered on 09/20/16 06:12; Admin Dose 1 UNIT; Start 09/16/16 at 00:00 Collagenase 1 applic 1 applic DAILY TOP Last administered on 09/18/16 08:01; Admin Dose 1 APPLIC; Start 09/17/16 at 09:00 Vancomycin HCl 100 ml @ 100 mls/hr Q36H IVPB Last administered on 09/18/16 20: 42; Admin Dose 100 MLS/HR; Start 09/17/16 at 08:00 Total Parenteral Nutrition (Tpn) 1,000 ml @ 40 mls/hr Q24H IV Last administered on 09/19/16 16:24; Admin Dose 40 MLS/HR; Start 09/19/16 at 16:00 URIEL TERRAZAS DO Sep 20, 2016 07:02
[2016-09-20] MEDS: FUROSEMIDE 20 MG INJ IV SCH ×2 (08:21→18:29)
[2016-09-20] MEDS: COLLAGENASE 30 GM TUBE TOP SCH (09:41)
[2016-09-20] MEDS: VANCOMYCIN 500MG/NS (PMX) 100 ML IVPB SCH (09:41)
[2016-09-20] MEDS: [UNRECOGNIZED DRUG - REMARK] XX SCH (09:42)
[2016-09-20 09:53] LABS: LYMPHOCYTES # 0.4 10^3/ul (0.8-2.9); MONOCYTE # 0.2 10^3/ul (0.3-0.9); NEUTROPHIL # 8.4 10^3/ul (1.6-7.5); PLATELET ESTIMATE PLT APPEAR DECREASED
--- NOTE | 2016-09-20 10:01 | PN ---
DATE: 09/20/2016 The patient continues to be intubated, with multiple active problems, including impaired renal funct ion, metastatic cervical cancer, with a frozen pelvis and a localized contained bowel perforation. PHYSICAL EXAMINATION: GENERAL APPEARANCE: The patient remains intubated. ABDOMEN: Slightly distended and tender. LABORATORY DATA: The patient's hematocrit is 27.9, with a white count of 10,400. IMPRESSION: The patient's overall prognosis is poor at best. She is being treated with aggressive medical management, but is not a surgical candidate at this time. The patient's family has expresse d a desire to make the patient a FULL CODE, despite if an evaluation for her care is rendered futile . At the present time we continue with aggressive medical management. There are no new surgical recommendations at this time. Dictated By: CASSANDRA TAVAREZ/EHSAN Conf#: [id number] DID#: [id number]
--- NOTE | 2016-09-20 11:38 | PN ---
Date/Time of Note Date/Time of Note DATE: 09/20/16 TIME: 11:34 Assessment/Plan VTE Prophylaxis VTE Prophylaxis Intervention: contraindicated Lines/Catheters IV Catheter Type (from Nrs): PICC Line Central line still needed: Yes Urinary Cath still in place: No Assessment/Plan Assessment/Plan Assessment/Plan Respiratory failure Anemia/no overt GI bleeding Rule out intra-abdominal bleeding versus hemolysis versus GI bleeding with slow transit Post colonoscopy perforated viscus * Large pelvic mass invading colon wall site of perforation * Contrast leakage to pelvic area * ?Contained perforation as no evidence of generalized peritonitis Sepsis Metastatic cervical CA/Adrenal/brain History of cervical cancer S/P nephrostomy tube bilateral EF 20% Plan continue present management Case was discussed with Dr Durant Subjective 24 Hr Interval Summary Free Text/Dictation * Course reviewed with RN * Patient seen and examined * Latest hemoglobin 9.4 * Family conference on tomorrow Exam/Review of Systems Vital Signs Vitals Vital Signs Date Time Temp Pulse Resp B/P Pulse Ox O2 Delivery O2 Flow Rate FiO2 09/20/16 11:00 92 17 100/68 100 Mechanical Ventilator 09/20/16 08:00 97.7 09/20/16 05:03 30 Intake and Output 09/19/16 09/19/16 09/20/16 15:00 23:00 07:00 Intake Total 718 ml 341.5 ml 933.5 ml Output Total 700 ml 1360 ml 440 ml Balance 18 ml -1018.5 ml 493.5 ml Exam Constitutional: frail ENMT: intubated Neck: supple Respiratory: diminished breath sounds Cardiovascular: regular rate and rhythm Gastrointestinal: bowel sounds, distended, firm, non-tender, No rebound or guarding Genitourinary - Female: other (nephrostomy tube bilateral) Musculoskeletal: muscle weakness, swelling Extremities: edema Neurological: other (on fentanyl drip) Skin: rash or lesions Results Result Diagram: 09/20/16 0445 09/20/16 0445 Results 24 hrs Laboratory Tests Test 09/19/16 12:33 09/19/16 18:48 09/19/16 21:15 09/20/16 04:45 Bedside Glucose 136 136 130 White Blood Count 10.4 Red Blood Count 3.08 L Hemoglobin 9.4 L Hematocrit 27.9 L Mean Corpuscular Volume 90.6 Mean Corpuscular Hemoglobin 30.5 Mean Corpuscular Hemoglobin Concent 33.7 Red Cell Distribution Width 21.7 H Platelet Count 84 #L Mean Platelet Volume 12.8 H Neutrophils % 81.0 H Band Neutrophils % 13.0 H Lymphocytes % 4.0 L Monocytes % 2.0 Eosinophils % Nucleated Red Blood Cells % 6.0 H Neutrophils # 8.4 H Lymphocytes # 0.4 L Monocytes # 0.2 L Eosinophils # Platelet Estimate PLT APPEAR DECREASED Sodium Level 140 Potassium Level 3.6 Chloride Level 108 Carbon Dioxide Level 24 Anion Gap 12 Blood Urea Nitrogen 36 H Creatinine 0.90 Glucose Level 153 Calcium Level 9.1 Phosphorus Level 3.8 Magnesium Level 2.1 Test 09/20/16 06:09 Bedside Glucose 148 Medications Medications Current Medications Acetaminophen (Tylenol Tab) 650 mg Q6H PRN PO PAIN LEVEL 1-3 OR FEVER; Start at 18:30 Morphine Sulfate (morphine) 2 mg Q4H PRN IV SEVERE PAIN LEVEL 7-10 Last administered on 09/19/16 05:41; Admin Dose 2 MG; Start 09/05/16 at 18:30 Docusate Sodium (Colace) 100 mg Q12H PRN PO CONSTIPATION; Start 09/05/16 at 18: 30 Magnesium Hydroxide (Milk Of Mag) 30 ml DAILY PRN PO CONSTIPATION; Start at 18:30 Sodium Biphosphate/ Sodium Phosphate 133 ml 133 ml DAILY PRN GA CONSTIPATION; Start 09/05/16 at 18:30 Piperacillin Sod/ Tazobactam Sod (Zosyn 2.25gm/ 50ml (Pmx)) 50 ml @ 100 mls/hr Q6 IVPB Last administered on 09/20/16 06:01; Admin Dose 100 MLS/HR; Start at 00:00 Vancomycin HCl (Vanco Iv Per Pharmacy) VANCOMYCIN PER PHARMACY NOTE XX ; Start 09/05/16 at 18:30 Hydralazine HCl (Apresoline) 10 mg Q6H PRN IV ELEVATED BLOOD PRESSURE; Start at 18:30 Nitroglycerin (Nitroglycerin (Sl Tab) 0.4 Mg) 1 tab Q5M PRN SL ANGINA; Start at 18:30 Miscellaneous Information 1 ea NOTE XX ; Start 09/05/16 at 19:00 Glucose (Glutose) 15 gm Q15M PRN PO DECREASED GLUCOSE; Start 09/05/16 at 19:00 Glucose (Glutose) 22.5 gm Q15M PRN PO DECREASED GLUCOSE; Start 09/05/16 at 19: 00 Dextrose (D50w Syringe) 25 ml Q15M PRN IV DECREASED GLUCOSE; Start 09/05/16 at 19:00 Dextrose (D50w Syringe) 50 ml Q15M PRN IV DECREASED GLUCOSE; Start 09/05/16 at 19:00 Glucagon (Glucagen) 1 mg Q15M PRN IM DECREASED GLUCOSE; Start 09/05/16 at 19:00 Glucose 15 gm 15 gm Q15M PRN BUCCAL DECREASED GLUCOSE; Start 09/05/16 at 19:00 Ondansetron HCl/ Sodium Chloride (Zofran Inj/NS) 54 ml @ 216 mls/hr Q6H PRN IV NAUSEA AND/OR VOMITING Last administered on 09/07/16 17:27; Admin Dose 216 MLS/HR; Start 09/06/16 at 10:30 Pantoprazole 40 mg 40 mg BID@06,18 IV Last administered on 09/20/16 06:01; Admin Dose 40 MG; Start 09/08/16 at 18:00 Fluconazole/ Sodium Chloride 50 ml @ 50 mls/hr Q24H IVPB Last administered on 16:24; Admin Dose 50 MLS/HR; Start 09/09/16 at 14:30 Phenylephrine HCl/ Sodium Chloride (Julio-Syneph/NS) 500 ml @ 18.75 mls/ hr TITRATE IV ; Start 09/10/16 at 10:00 Miscellaneous Information PLEASE CHANGE ALL IVPB F... DAILY XX Last administered on 09/20/16 09:42; Admin Dose 1 EA; Start 09/10/16 at 08:30 Vasopressin 60 unit/Sodium Chloride 103 ml @ 0 mls/hr Q12H IVPB ; Start at 09:00; Status Future Hold Fat Emulsion Intravenous 500 ml @ 20.833 mls/ hr Q24H IV Last administered on 09/19/16 16:23; Admin Dose 20.833 MLS/HR; Start 09/11/16 at 16:00 Norepinephrine 16 mg/Sodium Chloride 500 ml @ 0 mls/hr TITRATE IV Last administered on 09/15/16 11:53; Admin Dose 3.75 MLS/HR; Start 09/11/16 at 20:31 Fentanyl (Sublimaze) 100 ml @ 5 mls/hr TITRATE IV Last administered on 11:10; Admin Dose 10 MLS/HR; Start 09/13/16 at 07:45 Hydrocortisone (Solu-Cortef) 50 mg Q8 IV Last administered on 09/20/16 06:02; Admin Dose 50 MG; Start 09/13/16 at 14:00 Lorazepam 1 mg 1 mg Q4 PRN IV ANXIETY Last administered on 09/20/16 05:56; Admin Dose 1 MG; Start 09/14/16 at 06:30 Midazolam HCl (Versed) 50 ml @ 1 mls/hr TITRATE IV ; Start 09/14/16 at 10:30 Insulin Aspart (Novolog Insulin Pen) NOVOLOG *MILD* ALGORI... Q6 SC Last administered on 09/20/16 06:12; Admin Dose 1 UNIT; Start 09/16/16 at 00:00 Collagenase 1 applic 1 applic DAILY TOP Last administered on 09/20/16 09:41; Admin Dose 1 APPLIC; Start 09/17/16 at 09:00 Vancomycin HCl 100 ml @ 100 mls/hr Q36H IVPB Last administered on 09/20/16 09 :41; Admin Dose 100 MLS/HR; Start 09/17/16 at 08:00 Total Parenteral Nutrition (Tpn) 1,000 ml @ 40 mls/hr Q24H IV Last administered on 09/19/16 16:24; Admin Dose 40 MLS/HR; Start 09/19/16 at 16:00 [place] DE LEON NP Sep 20, 2016 11:37
--- NOTE | 2016-09-20 11:40 | PN ---
DATE: 09/20/2016 CARDIOLOGY FOLLOWUP SUBJECTIVE: Discussed with the staff. Rhythm strip was reviewed. The patient remains intubated on the vent, unable to be weaned off. Blood pressure has been on the low side. Remains in sinus rhyt hm. MEDICATIONS: Reviewed. PHYSICAL EXAMINATION: VITAL SIGNS: Temperature 97.6, heart rate of 90, blood pressure 93/68, respiratory rate of 19. HEENT: Normocephalic, atraumatic. Status post intubation on the vent, saturating 99%. CARDIOVASCULAR: Regular rate and rhythm. PULMONARY: With no wheezes anteriorly. GASTROINTESTINAL: Softer now. No rebound or guarding. EXTREMITIES: With diffuse 4+ lower extremity edema. With drainage from the site of the previous at tempted IV access. NEUROLOGIC: Opens eyes, responds appropriately. LABORATORY DATA: WBC of 10.4, hemoglobin 9.4, platelets of 84. Sodium 140, potassium 3.6, BUN of 3 6, creatinine 0.90, glucose of 153. Magnesium is 2.1. ASSESSMENT AND PLAN: 1. Septic shock with perforated bowel and with severe cardiomyopathy, probably nonischemic, althoug h difficult to assess at this point. 2. History of metastatic cervical cancer. 3. Severe lower extremity edema and anasarca. 4. Anemia. 5. Thrombocytopenia. 6. Hypoxemic, hypercapnic respiratory failure, status post intubation on the vent support, so far h as failed weaning. RECOMMENDATIONS: Continue with the supportive care. Blood pressure on the low side but remains sta ble off of the pressors so far. Vent support will be continued. We will need to either consider pa lliative care or tracheostomy probably soon if unable to wean off. Family meeting has been postpone d for tomorrow. Palliative care Dr. Stringer is involved in the case as well. Follow up with the s urgical recommendations and GI recommendations. Electrolytes will be corrected as needed. Antibiot ic as per ID's recommendation. Continue with the ICU care. Dictated By: JIM ABDI MD AV/NTS Conf#: [id number] DID#: [id number] CC: CHERRI ALAN MD;*EndCC*
[2016-09-20] MEDS: FAT EMULSION 20% 500 ML IV SCH (15:30)
[2016-09-20] MEDS: TPN 1,000 ML IV SCH (15:30)
[2016-09-20] MEDS: FLUCONAZOLE 100 MG/NS (PMX) 50 ML IVPB SCH (15:30)
--- NOTE | 2016-09-20 16:12 | CONS ---
Date/Time of Note Date/Time of Note DATE: 09/20/16 TIME: 16:08 Consult Date/Type/Reason Admit Date/Time September 05, 2016 at 16:23 Initial Consult Date 09/06/16 Type of Consultation: Pulm/CCM Ordering Provider: MORIAH GARRIDO Subjective Awake and alert on vent. Objective Vital Signs Date Time Temp Pulse Resp B/P Pulse Ox O2 Delivery O2 Flow Rate FiO2 09/20/16 12:00 30 09/20/16 12:00 97.7 89 17 86/58 100 Mechanical Ventilator Intake and Output 09/19/16 09/19/16 09/20/16 15:00 23:00 07:00 Intake Total 718 ml 341.5 ml 933.5 ml Output Total 700 ml 1360 ml 440 ml Balance 18 ml -1018.5 ml 493.5 ml Exam HEENT: Neck supple; no JVD; no LAD + ET tube in place CVS: RRR, S1 and S2 CHEST: Clear anteriorly ABD: Soft, NT, + BS EXT: +++edema Results/Medications Result Diagram: 09/20/165 09/20/16 0445 Results 24 hrs Laboratory Tests Test 09/19/16 18:48 09/19/16 21:15 09/20/16 04:45 09/20/16 06:09 Bedside Glucose 136 130 148 White Blood Count 10.4 Red Blood Count 3.08 L Hemoglobin 9.4 L Hematocrit 27.9 L Mean Corpuscular Volume 90.6 Mean Corpuscular Hemoglobin 30.5 Mean Corpuscular Hemoglobin Concent 33.7 Red Cell Distribution Width 21.7 H Platelet Count 84 #L Mean Platelet Volume 12.8 H Neutrophils % 81.0 H Band Neutrophils % 13.0 H Lymphocytes % 4.0 L Monocytes % 2.0 Eosinophils % Nucleated Red Blood Cells % 6.0 H Neutrophils # 8.4 H Lymphocytes # 0.4 L Monocytes # 0.2 L Eosinophils # Platelet Estimate PLT APPEAR DECREASED Sodium Level 140 Potassium Level 3.6 Chloride Level 108 Carbon Dioxide Level 24 Anion Gap 12 Blood Urea Nitrogen 36 H Creatinine 0.90 Glucose Level 153 Calcium Level 9.1 Phosphorus Level 3.8 Magnesium Level 2.1 Test 09/20/16 13:03 Bedside Glucose 129 Medications Current Medications Acetaminophen (Tylenol Tab) 650 mg Q6H PRN PO PAIN LEVEL 1-3 OR FEVER; Start at 18:30 Morphine Sulfate (morphine) 2 mg Q4H PRN IV SEVERE PAIN LEVEL 7-10 Last administered on 09/19/16 05:41; Admin Dose 2 MG; Start 09/05/16 at 18:30 Docusate Sodium (Colace) 100 mg Q12H PRN PO CONSTIPATION; Start 09/05/16 at 18: 30 Magnesium Hydroxide (Milk Of Mag) 30 ml DAILY PRN PO CONSTIPATION; Start at 18:30 Sodium Biphosphate/ Sodium Phosphate 133 ml 133 ml DAILY PRN DE CONSTIPATION; Start 09/05/16 at 18:30 Piperacillin Sod/ Tazobactam Sod (Zosyn 2.25gm/ 50ml (Pmx)) 50 ml @ 100 mls/hr Q6 IVPB Last administered on 09/20/16 13:06; Admin Dose 100 MLS/HR; Start at 00:00 Vancomycin HCl (Vanco Iv Per Pharmacy) VANCOMYCIN PER PHARMACY NOTE XX ; Start 09/05/16 at 18:30 Hydralazine HCl (Apresoline) 10 mg Q6H PRN IV ELEVATED BLOOD PRESSURE; Start at 18:30 Nitroglycerin (Nitroglycerin (Sl Tab) 0.4 Mg) 1 tab Q5M PRN SL ANGINA; Start at 18:30 Miscellaneous Information 1 ea NOTE XX ; Start 09/05/16 at 19:00 Glucose (Glutose) 15 gm Q15M PRN PO DECREASED GLUCOSE; Start 09/05/16 at 19:00 Glucose (Glutose) 22.5 gm Q15M PRN PO DECREASED GLUCOSE; Start 09/05/16 at 19: 00 Dextrose (D50w Syringe) 25 ml Q15M PRN IV DECREASED GLUCOSE; Start 09/05/16 at 19:00 Dextrose (D50w Syringe) 50 ml Q15M PRN IV DECREASED GLUCOSE; Start 09/05/16 at 19:00 Glucagon (Glucagen) 1 mg Q15M PRN IM DECREASED GLUCOSE; Start 09/05/16 at 19:00 Glucose 15 gm 15 gm Q15M PRN BUCCAL DECREASED GLUCOSE; Start 09/05/16 at 19:00 Ondansetron HCl/ Sodium Chloride (Zofran Inj/NS) 54 ml @ 216 mls/hr Q6H PRN IV NAUSEA AND/OR VOMITING Last administered on 09/07/16 17:27; Admin Dose 216 MLS/HR; Start 09/06/16 at 10:30 Pantoprazole 40 mg 40 mg BID@06,18 IV Last administered on 09/20/16 06:01; Admin Dose 40 MG; Start 09/08/16 at 18:00 Fluconazole/ Sodium Chloride 50 ml @ 50 mls/hr Q24H IVPB Last administered on 15:30; Admin Dose 50 MLS/HR; Start 09/09/16 at 14:30 Phenylephrine HCl/ Sodium Chloride (Julio-Syneph/NS) 500 ml @ 18.75 mls/ hr TITRATE IV ; Start 09/10/16 at 10:00 Miscellaneous Information PLEASE CHANGE ALL IVPB F... DAILY XX Last administered on 09/20/16 09:42; Admin Dose 1 EA; Start 09/10/16 at 08:30 Vasopressin 60 unit/Sodium Chloride 103 ml @ 0 mls/hr Q12H IVPB ; Start at 09:00; Status Future Hold Fat Emulsion Intravenous 500 ml @ 20.833 mls/ hr Q24H IV Last administered on 09/20/16 15:30; Admin Dose 20.833 MLS/HR; Start 09/11/16 at 16:00 Norepinephrine 16 mg/Sodium Chloride 500 ml @ 0 mls/hr TITRATE IV Last administered on 09/15/16 11:53; Admin Dose 3.75 MLS/HR; Start 09/11/16 at 20:31 Fentanyl (Sublimaze) 100 ml @ 5 mls/hr TITRATE IV Last administered on 11:10; Admin Dose 10 MLS/HR; Start 09/13/16 at 07:45 Hydrocortisone (Solu-Cortef) 50 mg Q8 IV Last administered on 09/20/16 15:30; Admin Dose 50 MG; Start 09/13/16 at 14:00 Lorazepam 1 mg 1 mg Q4 PRN IV ANXIETY Last administered on 09/20/16 05:56; Admin Dose 1 MG; Start 09/14/16 at 06:30 Midazolam HCl (Versed) 50 ml @ 1 mls/hr TITRATE IV ; Start 09/14/16 at 10:30 Insulin Aspart (Novolog Insulin Pen) NOVOLOG *MILD* ALGORI... Q6 SC Last administered on 09/20/16 06:12; Admin Dose 1 UNIT; Start 09/16/16 at 00:00 Collagenase 1 applic 1 applic DAILY TOP Last administered on 09/20/16 09:41; Admin Dose 1 APPLIC; Start 09/17/16 at 09:00 Vancomycin HCl 100 ml @ 100 mls/hr Q36H IVPB Last administered on 09/20/16 09 :41; Admin Dose 100 MLS/HR; Start 09/17/16 at 08:00 Total Parenteral Nutrition (Tpn) 1,000 ml @ 40 mls/hr Q24H IV Last administered on 09/20/16 15:30; Admin Dose 40 MLS/HR; Start 09/19/16 at 16:00 Assessment/Plan Additional Assessment/Plan IMP: 1. s/p Shock 2. Post colonoscopy perforated viscus: improved 3. 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 Chronic ureteral obstruction from #3 s/p nephrostomy tube bilateral 5. Severe cardiomyopathy with EF 20% thought to be likely ischemic 6. Occult GI bleed secondary to metastatic mass 7. Acute respiratory failure secondary to profound septic shock 9. Underlying abdominal ileus secondary to an obstructing sigmoid colon mass with patient now on TPN 10. Severe LE edema and anasarca 2/2 mass effect RECS: 1. Pocola of CPAP with PS (discussed at length with family) 2. Continue current therapy 3. Vent support overnight 4. May retry CPAP in am 5. Goals of Care discussions by Palliative 40 min cc time REAL VASQUEZ MD Sep 20, 2016 16:12
--- NOTE | 2016-09-20 17:37 | PN ---
Date/Time of Note Date/Time of Note DATE: 09/20/16 TIME: 17:36 Assessment/Plan VTE Prophylaxis VTE Prophylaxis Intervention: SCD's Lines/Catheters Urinary Cath still in place: No Assessment/Plan Chief Complaint/Hosp Course 1. Severe systemic systemic inflammatory response syndrome with shock in patient with known metastatic cancer likely due to sepsis 2. Post colonoscopy perforated viscus: improved Large pelvic mass invading colon wall site of perforation Contrast leakage to pelvic area: not seen on last CT Contained perforation as no evidence of generalized peritonitis 3. 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 Chronic ureteral obstruction from #3 s/p nephrostomy tube bilateral 5. Severe cardiomyopathy with EF 20% thought to be likely ischemic 6. Occult GI bleed secondary to metastatic mass 7. Recurrent anemia requiring transfusion secondary to the above 8. Acute respiratory failure secondary to profound septic shock 9. Underlying abdominal ileus secondary to an obstructing sigmoid colon mass with patient now on TPN 10. Severe LE edema and anasarca 2/2 mass effect PLAN: Continue intensive care unit monitoring. Continue to wean pressors to keep systolic blood pressure above 90 Continue vent management and weaning if able, patient's family would like trach placement if cannot wean off vent, palliative care is following Serial lab monitoring and electrolyte replacement Started on steroids per pulmonary Continue digoxin per cardiology Continue empiric broad-spectrum antibiotics for sepsis in an immunosuppressed patient with unclear source Definitely not a candidate for any form of cancer therapy at this point [employer] management and recommendations is appreciated Deep venous thrombosis prophylaxis. Bilateral sequential compression devices. Gastrointestinal prophylaxis. Proton pump inhibitors. Extremely poor prognosis, family conference tomorrow Problems: Subjective 24 Hr Interval Summary Subjective hx not possible: pt non-verbal Exam/Review of Systems Vital Signs Vitals Vital Signs Date Time Temp Pulse Resp B/P Pulse Ox O2 Delivery O2 Flow Rate FiO2 09/20/16 16:00 94 09/20/16 12:00 30 09/20/16 12:00 97.7 17 86/58 100 Mechanical Ventilator Intake and Output 09/19/16 09/19/16 09/20/16 15:00 23:00 07:00 Intake Total 718 ml 341.5 ml 933.5 ml Output Total 700 ml 1360 ml 440 ml Balance 18 ml -1018.5 ml 493.5 ml Exam Constitutional: non-verbal ENMT: intubated Respiratory: clear to auscultation Cardiovascular: regular rate and rhythm Gastrointestinal: soft, No distended Musculoskeletal: nl extremities to inspection Results Result Diagram: 09/20/165 09/20/16 0445 Results 24 hrs Laboratory Tests Test 09/19/16 18:48 09/19/16 21:15 09/20/16 04:45 09/20/16 06:09 Bedside Glucose 136 130 148 White Blood Count 10.4 Red Blood Count 3.08 L Hemoglobin 9.4 L Hematocrit 27.9 L Mean Corpuscular Volume 90.6 Mean Corpuscular Hemoglobin 30.5 Mean Corpuscular Hemoglobin Concent 33.7 Red Cell Distribution Width 21.7 H Platelet Count 84 #L Mean Platelet Volume 12.8 H Neutrophils % 81.0 H Band Neutrophils % 13.0 H Lymphocytes % 4.0 L Monocytes % 2.0 Eosinophils % Nucleated Red Blood Cells % 6.0 H Neutrophils # 8.4 H Lymphocytes # 0.4 L Monocytes # 0.2 L Eosinophils # Platelet Estimate PLT APPEAR DECREASED Sodium Level 140 Potassium Level 3.6 Chloride Level 108 Carbon Dioxide Level 24 Anion Gap 12 Blood Urea Nitrogen 36 H Creatinine 0.90 Glucose Level 153 Calcium Level 9.1 Phosphorus Level 3.8 Magnesium Level 2.1 Test 09/20/16 13:03 Bedside Glucose 129 Medications Medications Current Medications Acetaminophen (Tylenol Tab) 650 mg Q6H PRN PO PAIN LEVEL 1-3 OR FEVER; Start at 18:30 Morphine Sulfate (morphine) 2 mg Q4H PRN IV SEVERE PAIN LEVEL 7-10 Last administered on 09/19/16 05:41; Admin Dose 2 MG; Start 09/05/16 at 18:30 Docusate Sodium (Colace) 100 mg Q12H PRN PO CONSTIPATION; Start 09/05/16 at 18: 30 Magnesium Hydroxide (Milk Of Mag) 30 ml DAILY PRN PO CONSTIPATION; Start at 18:30 Sodium Biphosphate/ Sodium Phosphate 133 ml 133 ml DAILY PRN MD CONSTIPATION; Start 09/05/16 at 18:30 Piperacillin Sod/ Tazobactam Sod (Zosyn 2.25gm/ 50ml (Pmx)) 50 ml @ 100 mls/hr Q6 IVPB Last administered on 09/20/16 13:06; Admin Dose 100 MLS/HR; Start at 00:00 Vancomycin HCl (Vanco Iv Per Pharmacy) VANCOMYCIN PER PHARMACY NOTE XX ; Start 09/05/16 at 18:30 Hydralazine HCl (Apresoline) 10 mg Q6H PRN IV ELEVATED BLOOD PRESSURE; Start at 18:30 Nitroglycerin (Nitroglycerin (Sl Tab) 0.4 Mg) 1 tab Q5M PRN SL ANGINA; Start at 18:30 Miscellaneous Information 1 ea NOTE XX ; Start 09/05/16 at 19:00 Glucose (Glutose) 15 gm Q15M PRN PO DECREASED GLUCOSE; Start 09/05/16 at 19:00 Glucose (Glutose) 22.5 gm Q15M PRN PO DECREASED GLUCOSE; Start 09/05/16 at 19: 00 Dextrose (D50w Syringe) 25 ml Q15M PRN IV DECREASED GLUCOSE; Start 09/05/16 at 19:00 Dextrose (D50w Syringe) 50 ml Q15M PRN IV DECREASED GLUCOSE; Start 09/05/16 at 19:00 Glucagon (Glucagen) 1 mg Q15M PRN IM DECREASED GLUCOSE; Start 09/05/16 at 19:00 Glucose 15 gm 15 gm Q15M PRN BUCCAL DECREASED GLUCOSE; Start 09/05/16 at 19:00 Ondansetron HCl/ Sodium Chloride (Zofran Inj/NS) 54 ml @ 216 mls/hr Q6H PRN IV NAUSEA AND/OR VOMITING Last administered on 09/07/16 17:27; Admin Dose 216 MLS/HR; Start 09/06/16 at 10:30 Pantoprazole 40 mg 40 mg BID@06,18 IV Last administered on 09/20/16 06:01; Admin Dose 40 MG; Start 09/08/16 at 18:00 Fluconazole/ Sodium Chloride 50 ml @ 50 mls/hr Q24H IVPB Last administered on 15:30; Admin Dose 50 MLS/HR; Start 09/09/16 at 14:30 Phenylephrine HCl/ Sodium Chloride (Julio-Syneph/NS) 500 ml @ 18.75 mls/ hr TITRATE IV ; Start 09/10/16 at 10:00 Miscellaneous Information PLEASE CHANGE ALL IVPB F... DAILY XX Last administered on 09/20/16 09:42; Admin Dose 1 EA; Start 09/10/16 at 08:30 Vasopressin 60 unit/Sodium Chloride 103 ml @ 0 mls/hr Q12H IVPB ; Start at 09:00; Status Future Hold Fat Emulsion Intravenous 500 ml @ 20.833 mls/ hr Q24H IV Last administered on 09/20/16 15:30; Admin Dose 20.833 MLS/HR; Start 09/11/16 at 16:00 Norepinephrine 16 mg/Sodium Chloride 500 ml @ 0 mls/hr TITRATE IV Last administered on 09/15/16 11:53; Admin Dose 3.75 MLS/HR; Start 09/11/16 at 20:31 Fentanyl (Sublimaze) 100 ml @ 5 mls/hr TITRATE IV Last administered on 11:10; Admin Dose 10 MLS/HR; Start 09/13/16 at 07:45 Hydrocortisone (Solu-Cortef) 50 mg Q8 IV Last administered on 09/20/16 15:30; Admin Dose 50 MG; Start 09/13/16 at 14:00 Lorazepam 1 mg 1 mg Q4 PRN IV ANXIETY Last administered on 09/20/16 05:56; Admin Dose 1 MG; Start 09/14/16 at 06:30 Midazolam HCl (Versed) 50 ml @ 1 mls/hr TITRATE IV ; Start 09/14/16 at 10:30 Insulin Aspart (Novolog Insulin Pen) NOVOLOG *MILD* ALGORI... Q6 SC Last administered on 09/20/16 06:12; Admin Dose 1 UNIT; Start 09/16/16 at 00:00 Collagenase 1 applic 1 applic DAILY TOP Last administered on 09/20/16 09:41; Admin Dose 1 APPLIC; Start 09/17/16 at 09:00 Vancomycin HCl 100 ml @ 100 mls/hr Q36H IVPB Last administered on 09/20/16 09 :41; Admin Dose 100 MLS/HR; Start 09/17/16 at 08:00 Total Parenteral Nutrition (Tpn) 1,000 ml @ 40 mls/hr Q24H IV Last administered on 09/20/16 15:30; Admin Dose 40 MLS/HR; Start 09/19/16 at 16:00 CHERRI ALAN Sep 20, 2016 17:37
--- NOTE | 2016-09-20 18:43 | CONS ---
Date/Time of Note Date/Time of Note DATE: 09/20/16 TIME: 18:42 Assessment/Plan Assessment/Plan Chief Complaint/Hosp Course SUBJECTIVE: No events overnight, no fevers, pt is awake, comfortable on vent INDWELLINGS: Endotracheal tube, NG tube, PICC line, placed 09/11/2016, right chest Port-A-Cath, B nephrostomies. ANTIMICROBIALS: 1. IV vancomycin. 2. Fluconazole. 3. Zosyn. PHYSICAL EXAMINATION: GENERAL: Chronically ill-appearing, elderly woman, in no distress. HEENT: Head atraumatic, normocephalic. Sclerae anicteric. Buccal mucosa dry. NECK: Supple, trachea midline. CHEST: Chest rise is symmetrical. Breath sounds diminished to the bases. HEART: S1, S2. ABDOMEN: Soft, bowel tones present. Abdomen distended. Bowel tones hypoactive. EXTREMITIES: With bilateral edema. ASSESSMENT: 1. Sepsis ==> resolving, s/p shock and multisystem organ failure. 2. Large pelvic mass/ metastatic cervical cancer 3. Proximal sigmoid colon obstruction with perforation. 4. Urinary tract infection, per urinalysis. 5. Acute renal and respiratory failure. PLAN: Remains hemodynamically stable, continue broad-spectrum antibiotics, pt is not a candidate for oncology treatments, pending family conference [facility] staff Problems: Consultation Date/Type/Reason Admit Date/Time September 05, 2016 at 16:23 Initial Consult Date 09/06/16 Type of Consultation: ID Referring Provider: MORIAH GARRIDO Exam/Review of Systems Vital Signs Vitals Vital Signs Date Time Temp Pulse Resp B/P Pulse Ox O2 Delivery O2 Flow Rate FiO2 09/20/16 17:10 110 37 100 30 09/20/16 17:00 125/84 Mechanical Ventilator 09/20/16 16:00 97.7 Intake and Output 09/19/16 09/19/16 09/20/16 15:00 23:00 07:00 Intake Total 718 ml 341.5 ml 973.5 ml Output Total 700 ml 1360 ml 440 ml Balance 18 ml -1018.5 ml 533.5 ml Results Result Diagram: 09/20/16 0445 09/20/16 0445 Results 24 hrs Laboratory Tests Test 09/19/16 18:48 09/19/16 21:15 09/20/16 04:45 09/20/16 06:09 Bedside Glucose 136 130 148 White Blood Count 10.4 Red Blood Count 3.08 L Hemoglobin 9.4 L Hematocrit 27.9 L Mean Corpuscular Volume 90.6 Mean Corpuscular Hemoglobin 30.5 Mean Corpuscular Hemoglobin Concent 33.7 Red Cell Distribution Width 21.7 H Platelet Count 84 #L Mean Platelet Volume 12.8 H Neutrophils % 81.0 H Band Neutrophils % 13.0 H Lymphocytes % 4.0 L Monocytes % 2.0 Eosinophils % Nucleated Red Blood Cells % 6.0 H Neutrophils # 8.4 H Lymphocytes # 0.4 L Monocytes # 0.2 L Eosinophils # Platelet Estimate PLT APPEAR DECREASED Sodium Level 140 Potassium Level 3.6 Chloride Level 108 Carbon Dioxide Level 24 Anion Gap 12 Blood Urea Nitrogen 36 H Creatinine 0.90 Glucose Level 153 Calcium Level 9.1 Phosphorus Level 3.8 Magnesium Level 2.1 Test 09/20/16 13:03 09/20/16 18:23 Bedside Glucose 129 153 Medications Medications Current Medications Acetaminophen (Tylenol Tab) 650 mg Q6H PRN PO PAIN LEVEL 1-3 OR FEVER; Start at 18:30 Morphine Sulfate (morphine) 2 mg Q4H PRN IV SEVERE PAIN LEVEL 7-10 Last administered on 09/19/16 05:41; Admin Dose 2 MG; Start 09/05/16 at 18:30 Docusate Sodium (Colace) 100 mg Q12H PRN PO CONSTIPATION; Start 09/05/16 at 18: 30 Magnesium Hydroxide (Milk Of Mag) 30 ml DAILY PRN PO CONSTIPATION; Start at 18:30 Sodium Biphosphate/ Sodium Phosphate 133 ml 133 ml DAILY PRN [place] CONSTIPATION; Start 09/05/16 at 18:30 Piperacillin Sod/ Tazobactam Sod (Zosyn 2.25gm/ 50ml (Pmx)) 50 ml @ 100 mls/hr Q6 IVPB Last administered on 09/20/16 13:06; Admin Dose 100 MLS/HR; Start at 00:00 Vancomycin HCl (Vanco Iv Per Pharmacy) VANCOMYCIN PER PHARMACY NOTE XX ; Start 09/05/16 at 18:30 Hydralazine HCl (Apresoline) 10 mg Q6H PRN IV ELEVATED BLOOD PRESSURE; Start at 18:30 Nitroglycerin (Nitroglycerin (Sl Tab) 0.4 Mg) 1 tab Q5M PRN SL ANGINA; Start at 18:30 Miscellaneous Information 1 ea NOTE XX ; Start 09/05/16 at 19:00 Glucose (Glutose) 15 gm Q15M PRN PO DECREASED GLUCOSE; Start 09/05/16 at 19:00 Glucose (Glutose) 22.5 gm Q15M PRN PO DECREASED GLUCOSE; Start 09/05/16 at 19: 00 Dextrose (D50w Syringe) 25 ml Q15M PRN IV DECREASED GLUCOSE; Start 09/05/16 at 19:00 Dextrose (D50w Syringe) 50 ml Q15M PRN IV DECREASED GLUCOSE; Start 09/05/16 at 19:00 Glucagon (Glucagen) 1 mg Q15M PRN IM DECREASED GLUCOSE; Start 09/05/16 at 19:00 Glucose 15 gm 15 gm Q15M PRN BUCCAL DECREASED GLUCOSE; Start 09/05/16 at 19:00 Ondansetron HCl/ Sodium Chloride (Zofran Inj/NS) 54 ml @ 216 mls/hr Q6H PRN IV NAUSEA AND/OR VOMITING Last administered on 09/07/16 17:27; Admin Dose 216 MLS/HR; Start 09/06/16 at 10:30 Pantoprazole 40 mg 40 mg BID@06,18 IV Last administered on 09/20/16 06:01; Admin Dose 40 MG; Start 09/08/16 at 18:00 Fluconazole/ Sodium Chloride 50 ml @ 50 mls/hr Q24H IVPB Last administered on 15:30; Admin Dose 50 MLS/HR; Start 09/09/16 at 14:30 Phenylephrine HCl/ Sodium Chloride (Julio-Syneph/NS) 500 ml @ 18.75 mls/ hr TITRATE IV ; Start 09/10/16 at 10:00 Miscellaneous Information PLEASE CHANGE ALL IVPB F... DAILY XX Last administered on 09/20/16 09:42; Admin Dose 1 EA; Start 09/10/16 at 08:30 Vasopressin 60 unit/Sodium Chloride 103 ml @ 0 mls/hr Q12H IVPB ; Start at 09:00; Status Future Hold Fat Emulsion Intravenous 500 ml @ 20.833 mls/ hr Q24H IV Last administered on 09/20/16 15:30; Admin Dose 20.833 MLS/HR; Start 09/11/16 at 16:00 Norepinephrine 16 mg/Sodium Chloride 500 ml @ 0 mls/hr TITRATE IV Last administered on 09/15/16 11:53; Admin Dose 3.75 MLS/HR; Start 09/11/16 at 20:31 Fentanyl (Sublimaze) 100 ml @ 5 mls/hr TITRATE IV Last administered on 11:10; Admin Dose 10 MLS/HR; Start 09/13/16 at 07:45 Hydrocortisone (Solu-Cortef) 50 mg Q8 IV Last administered on 09/20/16 15:30; Admin Dose 50 MG; Start 09/13/16 at 14:00 Lorazepam 1 mg 1 mg Q4 PRN IV ANXIETY Last administered on 09/20/16 05:56; Admin Dose 1 MG; Start 09/14/16 at 06:30 Midazolam HCl (Versed) 50 ml @ 1 mls/hr TITRATE IV ; Start 09/14/16 at 10:30 Insulin Aspart (Novolog Insulin Pen) NOVOLOG *MILD* ALGORI... Q6 SC Last administered on 09/20/16 06:12; Admin Dose 1 UNIT; Start 09/16/16 at 00:00 Collagenase 1 applic 1 applic DAILY TOP Last administered on 09/20/16 09:41; Admin Dose 1 APPLIC; Start 09/17/16 at 09:00 Vancomycin HCl 100 ml @ 100 mls/hr Q36H IVPB Last administered on 09/20/16 09 :41; Admin Dose 100 MLS/HR; Start 09/17/16 at 08:00 Total Parenteral Nutrition (Tpn) 1,000 ml @ 40 mls/hr Q24H IV Last administered on 09/20/16 15:30; Admin Dose 40 MLS/HR; Start 09/19/16 at 16:00 BIN MITTAL NP Sep 20, 2016 18:43
[2016-09-21] VITALS (36 sets, daily range): BP systolic 91–132; BP diastolic 57–104; PULSE 85–127; RESP 15–31
[2016-09-21] MEDS: PIPER-TAZO 2.25 GM (PMX) 50 ML IVPB SCH ×4 (00:14→17:41)
[2016-09-21] MEDS: HYDROCORTISONE 100 MG INJ IV SCH ×3 (05:32→22:23)
[2016-09-21] MEDS: PANTOPRAZOLE 40 MG INJ IV SCH ×2 (05:32→17:41)
[2016-09-21] MEDS: FUROSEMIDE 20 MG INJ IV SCH ×2 (05:32→17:42)
[2016-09-21] MEDS: INSULIN ASPART [NOVOLOG] 3 ML PEN SC SCH ×4 (05:39→18:08)
[2016-09-21 06:59] LABS: CALCIUM 9.4 mg/dl (8.4-10.2); CREATININE 0.83 mg/dl (0.44-1.00); PHOSPHORUS 3.4 mg/dl (2.5-4.9); POTASSIUM 3.8 mmol/L (3.5-5.1)
--- NOTE | 2016-09-21 07:11 | PN ---
Date/Time of Note Date/Time of Note DATE: 09/21/16 TIME: 07:05 Assessment/Plan VTE Prophylaxis VTE Prophylaxis Intervention: ambulation Lines/Catheters IV C[facility] Type (from [facility] PICC Line Central line still needed: No Urinary Cath still in place: No Assessment/Plan Assessment/Plan 1. Nonoliguric acute kidney injury with unknown baseline creatinine. Etiology is secondary to hemodynamics, sepsis. - Renal function has improved. - At this point, continue current treatment plan, supportive care, renally dose all meds . 2. History of hydronephrosis, status post bilateral nephrostomy tubes, currently stable. -Continue current treatment plan. 3. Hyponatremia, improved. - Continue free water restriction. 4. Volume overload secondary to third spacing, mass effect, chf Continue Lasix, tolerating well. -monitor renal function -f/u cardiology 5. Ventilator dependent respiratory failure. Vent settings have been reviewed. ABG is reviewed. Continue to monitor. 6. Sepsis, status post shock. The patient is currently off pressors. Continue current antibiotic regimen. 7. Perforated bowel. Continue to monitor. Follow up with general surgeon. No plans for surgery at this time. 8. Elevated troponin, non-STEMI. Continue medical management. 9. History of metastatic cervical cancer. Continue to monitor. 10. Cardiomyopathy. Continue medical management. 11. Anemia with possible GI bleed. Continue to monitor hemoglobin and hematocrit levels. 12. Nutrition. Continue TPN. Subjective 24 Hr Interval Summary Free Text/Dictation The patient is in critical but stable. No other acute events noted. No hemoptysis, hematemesis, or hematochezia. d/w RN Exam/Review of Systems Vital Signs Vitals Vital Signs Date Time Temp Pulse Resp B/P Pulse Ox O2 Delivery O2 Flow Rate FiO2 09/21/16 07:00 95 19 107/70 100 Mechanical Ventilator 09/21/16 05:46 30 09/21/16 04:00 97.8 Intake and Output 09/20/16 09/20/16 09/21/16 15:00 23:00 07:00 Intake Total 818.3 ml 562 ml 450 ml Output Total 950 ml 1025 ml 1400 ml Balance -131.7 ml -463 ml -950 ml Exam Head is normocephalic. NECK: Supple. HEART: Regular rate. LUNGS: Show diminished breath sounds at base. ABDOMEN: Soft, nontender to palpation without rebound or guarding. EXTREMITIES: Negative for clubbing, cyanosis. Positive edema, diffuse anasarca. DERMATOLOGIC: No rashes. MUSCULOSKELETAL: No joint effusions. NEUROLOGIC: No change in exam. Results Result Diagram: 09/20/16 0445 09/21/16 0400 Results 24 hrs Laboratory Tests Test 09/20/16 13:03 09/20/16 18:23 09/21/16 00:18 09/21/16 04:00 Bedside Glucose 129 153 127 Sodium Level 141 Potassium Level 3.8 Chloride Level 108 Carbon Dioxide Level 25 Anion Gap 12 Blood Urea Nitrogen 38 H Creatinine 0.83 Glucose Level 119 Calcium Level 9.4 Phosphorus Level 3.4 Magnesium Level 2.0 Test 09/21/16 05:37 Bedside Glucose 142 Medications Medications Current Medications Acetaminophen (Tylenol Tab) 650 mg Q6H PRN PO PAIN LEVEL 1-3 OR FEVER; Start at 18:30 Morphine Sulfate (morphine) 2 mg Q4H PRN IV SEVERE PAIN LEVEL 7-10 Last administered on 09/19/16 05:41; Admin Dose 2 MG; Start 09/05/16 at 18:30 Docusate Sodium (Colace) 100 mg Q12H PRN PO CONSTIPATION; Start 09/05/16 at 18: 30 Magnesium Hydroxide (Milk Of Mag) 30 ml DAILY PRN PO CONSTIPATION; Start at 18:30 Sodium Biphosphate/ Sodium Phosphate 133 ml 133 ml DAILY PRN [place] CONSTIPATION; Start 09/05/16 at 18:30 Piperacillin Sod/ Tazobactam Sod (Zosyn 2.25gm/ 50ml (Pmx)) 50 ml @ 100 mls/hr Q6 IVPB Last administered on 09/21/16 05:33; Admin Dose 100 MLS/HR; Start at 00:00 Vancomycin HCl (Vanco Iv Per Pharmacy) VANCOMYCIN PER PHARMACY NOTE XX ; Start 09/05/16 at 18:30 Hydralazine HCl (Apresoline) 10 mg Q6H PRN IV ELEVATED BLOOD PRESSURE; Start at 18:30 Nitroglycerin (Nitroglycerin (Sl Tab) 0.4 Mg) 1 tab Q5M PRN SL ANGINA; Start at 18:30 Miscellaneous Information 1 ea NOTE XX ; Start 09/05/16 at 19:00 Glucose (Glutose) 15 gm Q15M PRN PO DECREASED GLUCOSE; Start 09/05/16 at 19:00 Glucose (Glutose) 22.5 gm Q15M PRN PO DECREASED GLUCOSE; Start 09/05/16 at 19: 00 Dextrose (D50w Syringe) 25 ml Q15M PRN IV DECREASED GLUCOSE; Start 09/05/16 at 19:00 Dextrose (D50w Syringe) 50 ml Q15M PRN IV DECREASED GLUCOSE; Start 09/05/16 at 19:00 Glucagon (Glucagen) 1 mg Q15M PRN IM DECREASED GLUCOSE; Start 09/05/16 at 19:00 Glucose 15 gm 15 gm Q15M PRN BUCCAL DECREASED GLUCOSE; Start 09/05/16 at 19:00 Ondansetron HCl/ Sodium Chloride (Zofran Inj/NS) 54 ml @ 216 mls/hr Q6H PRN IV NAUSEA AND/OR VOMITING Last administered on 09/07/16 17:27; Admin Dose 216 MLS/HR; Start 09/06/16 at 10:30 Pantoprazole 40 mg 40 mg BID@06,18 IV Last administered on 09/21/16 05:32; Admin Dose 40 MG; Start 09/08/16 at 18:00 Fluconazole/ Sodium Chloride 50 ml @ 50 mls/hr Q24H IVPB Last administered on 15:30; Admin Dose 50 MLS/HR; Start 09/09/16 at 14:30 Phenylephrine HCl/ Sodium Chloride (Julio-Syneph/NS) 500 ml @ 18.75 mls/ hr TITRATE IV ; Start 09/10/16 at 10:00 Miscellaneous Information PLEASE CHANGE ALL IVPB F... DAILY XX Last administered on 09/20/16 09:42; Admin Dose 1 EA; Start 09/10/16 at 08:30 Vasopressin 60 unit/Sodium Chloride 103 ml @ 0 mls/hr Q12H IVPB ; Start at 09:00; Status Future Hold Fat Emulsion Intravenous 500 ml @ 20.833 mls/ hr Q24H IV Last administered on 09/20/16 15:30; Admin Dose 20.833 MLS/HR; Start 09/11/16 at 16:00 Norepinephrine 16 mg/Sodium Chloride 500 ml @ 0 mls/hr TITRATE IV Last administered on 09/15/16 11:53; Admin Dose 3.75 MLS/HR; Start 09/11/16 at 20:31 Fentanyl (Sublimaze) 100 ml @ 5 mls/hr TITRATE IV Last administered on 21:20; Admin Dose 10 MLS/HR; Start 09/13/16 at 07:45 Hydrocortisone (Solu-Cortef) 50 mg Q8 IV Last administered on 09/21/16 05:32; Admin Dose 50 MG; Start 09/13/16 at 14:00 Lorazepam 1 mg 1 mg Q4 PRN IV ANXIETY Last administered on 09/20/16 05:56; Admin Dose 1 MG; Start 09/14/16 at 06:30 Midazolam HCl (Versed) 50 ml @ 1 mls/hr TITRATE IV ; Start 09/14/16 at 10:30 Insulin Aspart (Novolog Insulin Pen) NOVOLOG *MILD* ALGORI... Q6 SC Last administered on 09/21/16 05:39; Admin Dose 1 UNIT; Start 09/16/16 at 00:00 Collagenase 1 applic 1 applic DAILY TOP Last administered on 09/20/16 09:41; Admin Dose 1 APPLIC; Start 09/17/16 at 09:00 Vancomycin HCl 100 ml @ 100 mls/hr Q36H IVPB Last administered on 09/20/16 09 :41; Admin Dose 100 MLS/HR; Start 09/17/16 at 08:00 Total Parenteral Nutrition (Tpn) 1,000 ml @ 40 mls/hr Q24H IV Last administered on 09/20/16 15:30; Admin Dose 40 MLS/HR; Start 09/19/16 at 16:00 URIEL TERRAZAS DO Sep 21, 2016 07:11
[2016-09-21] MEDS: FENTAnyl (DRIP) 1000 mcg/100mL 100 ML IV SCH ×2 (07:36→17:41)
--- NOTE | 2016-09-21 10:31 | PN ---
Date/Time of Note Date/Time of Note DATE: 09/21/16 TIME: 10:30 Assessment/Plan VTE Prophylaxis VTE Prophylaxis Intervention: SCD's Lines/Catheters Urinary Cath still in place: No Assessment/Plan Chief Complaint/Hosp Course 1. Severe systemic systemic inflammatory response syndrome with shock in patient with known metastatic cancer likely due to sepsis 2. Post colonoscopy perforated viscus: improved Large pelvic mass invading colon wall site of perforation Contrast leakage to pelvic area: not seen on last CT Contained perforation as no evidence of generalized peritonitis 3. 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 Chronic ureteral obstruction from #3 s/p nephrostomy tube bilateral 5. Severe cardiomyopathy with EF 20% thought to be likely ischemic 6. Occult GI bleed secondary to metastatic mass 7. Recurrent anemia requiring transfusion secondary to the above 8. Acute respiratory failure secondary to profound septic shock 9. Underlying abdominal ileus secondary to an obstructing sigmoid colon mass with patient now on TPN 10. Severe LE edema and anasarca 2/2 mass effect PLAN: Continue intensive care unit monitoring. Continue to wean pressors to keep systolic blood pressure above 90 Continue vent management and weaning if able, patient's family would like trach placement if cannot wean off vent, palliative care is following Serial lab monitoring and electrolyte replacement Started on steroids per pulmonary Continue digoxin per cardiology Continue empiric broad-spectrum antibiotics for sepsis in an immunosuppressed patient with unclear source Definitely not a candidate for any form of cancer therapy at this point [employer] management and recommendations is appreciated Deep venous thrombosis prophylaxis. Bilateral sequential compression devices. Gastrointestinal prophylaxis. Proton pump inhibitors. Extremely poor prognosis, family conference today Problems: Subjective 24 Hr Interval Summary Subjective hx not possible: pt non-verbal Exam/Review of Systems Vital Signs Vitals Vital Signs Date Time Temp Pulse Resp B/P Pulse Ox O2 Delivery O2 Flow Rate FiO2 09/21/16 08:00 94 09/21/16 07:00 19 107/70 100 Mechanical Ventilator 09/21/16 05:46 30 09/21/16 04:00 97.8 Intake and Output 09/20/16 09/20/16 09/21/16 15:00 23:00 07:00 Intake Total 818.3 ml 667 ml 618 ml Output Total 950 ml 1025 ml 1400 ml Balance -131.7 ml -358 ml -782 ml Exam Constitutional: non-verbal ENMT: intubated Respiratory: clear to auscultation Cardiovascular: regular rate and rhythm Gastrointestinal: soft, No distended Musculoskeletal: nl extremities to inspection Results Result Diagram: 09/20/16 0445 09/21/16 0400 Results 24 hrs Laboratory Tests Test 09/20/16 13:03 09/20/16 18:23 09/21/16 00:18 09/21/16 04:00 Bedside Glucose 129 153 127 Sodium Level 141 Potassium Level 3.8 Chloride Level 108 Carbon Dioxide Level 25 Anion Gap 12 Blood Urea Nitrogen 38 H Creatinine 0.83 Glucose Level 119 Calcium Level 9.4 Phosphorus Level 3.4 Magnesium Level 2.0 Test 09/21/16 05:37 Bedside Glucose 142 Medications Medications Current Medications Acetaminophen (Tylenol Tab) 650 mg Q6H PRN PO PAIN LEVEL 1-3 OR FEVER; Start at 18:30 Morphine Sulfate (morphine) 2 mg Q4H PRN IV SEVERE PAIN LEVEL 7-10 Last administered on 09/19/16 05:41; Admin Dose 2 MG; Start 09/05/16 at 18:30 Docusate Sodium (Colace) 100 mg Q12H PRN PO CONSTIPATION; Start 09/05/16 at 18: 30 Magnesium Hydroxide (Milk Of Mag) 30 ml DAILY PRN PO CONSTIPATION; Start at 18:30 Sodium Biphosphate/ Sodium Phosphate 133 ml 133 ml DAILY PRN [place] CONSTIPATION; Start 09/05/16 at 18:30 Piperacillin Sod/ Tazobactam Sod (Zosyn 2.25gm/ 50ml (Pmx)) 50 ml @ 100 mls/hr Q6 IVPB Last administered on 09/21/16 05:33; Admin Dose 100 MLS/HR; Start at 00:00 Vancomycin HCl (Vanco Iv Per Pharmacy) VANCOMYCIN PER PHARMACY NOTE XX ; Start 09/05/16 at 18:30 Hydralazine HCl (Apresoline) 10 mg Q6H PRN IV ELEVATED BLOOD PRESSURE; Start at 18:30 Nitroglycerin (Nitroglycerin (Sl Tab) 0.4 Mg) 1 tab Q5M PRN SL ANGINA; Start at 18:30 Miscellaneous Information 1 ea NOTE XX ; Start 09/05/16 at 19:00 Glucose (Glutose) 15 gm Q15M PRN PO DECREASED GLUCOSE; Start 09/05/16 at 19:00 Glucose (Glutose) 22.5 gm Q15M PRN PO DECREASED GLUCOSE; Start 09/05/16 at 19: 00 Dextrose (D50w Syringe) 25 ml Q15M PRN IV DECREASED GLUCOSE; Start 09/05/16 at 19:00 Dextrose (D50w Syringe) 50 ml Q15M PRN IV DECREASED GLUCOSE; Start 09/05/16 at 19:00 Glucagon (Glucagen) 1 mg Q15M PRN IM DECREASED GLUCOSE; Start 09/05/16 at 19:00 Glucose 15 gm 15 gm Q15M PRN BUCCAL DECREASED GLUCOSE; Start 09/05/16 at 19:00 Ondansetron HCl/ Sodium Chloride (Zofran Inj/NS) 54 ml @ 216 mls/hr Q6H PRN IV NAUSEA AND/OR VOMITING Last administered on 09/07/16 17:27; Admin Dose 216 MLS/HR; Start 09/06/16 at 10:30 Pantoprazole 40 mg 40 mg BID@06,18 IV Last administered on 09/21/16 05:32; Admin Dose 40 MG; Start 09/08/16 at 18:00 Fluconazole/ Sodium Chloride 50 ml @ 50 mls/hr Q24H IVPB Last administered on 15:30; Admin Dose 50 MLS/HR; Start 09/09/16 at 14:30 Phenylephrine HCl/ Sodium Chloride (Julio-Syneph/NS) 500 ml @ 18.75 mls/ hr TITRATE IV ; Start 09/10/16 at 10:00 Miscellaneous Information PLEASE CHANGE ALL IVPB F... DAILY XX Last administered on 09/20/16 09:42; Admin Dose 1 EA; Start 09/10/16 at 08:30 Vasopressin 60 unit/Sodium Chloride 103 ml @ 0 mls/hr Q12H IVPB ; Start at 09:00; Status Future Hold Fat Emulsion Intravenous 500 ml @ 20.833 mls/ hr Q24H IV Last administered on 09/20/16 15:30; Admin Dose 20.833 MLS/HR; Start 09/11/16 at 16:00 Norepinephrine 16 mg/Sodium Chloride 500 ml @ 0 mls/hr TITRATE IV Last administered on 09/15/16 11:53; Admin Dose 3.75 MLS/HR; Start 09/11/16 at 20:31 Fentanyl (Sublimaze) 100 ml @ 5 mls/hr TITRATE IV Last administered on 07:36; Admin Dose 10 MLS/HR; Start 09/13/16 at 07:45 Hydrocortisone (Solu-Cortef) 50 mg Q8 IV Last administered on 09/21/16 05:32; Admin Dose 50 MG; Start 09/13/16 at 14:00 Lorazepam 1 mg 1 mg Q4 PRN IV ANXIETY Last administered on 09/20/16 05:56; Admin Dose 1 MG; Start 09/14/16 at 06:30 Midazolam HCl (Versed) 50 ml @ 1 mls/hr TITRATE IV ; Start 09/14/16 at 10:30 Insulin Aspart (Novolog Insulin Pen) NOVOLOG *MILD* ALGORI... Q6 SC Last administered on 09/21/16 05:39; Admin Dose 1 UNIT; Start 09/16/16 at 00:00 Collagenase 1 applic 1 applic DAILY TOP Last administered on 09/20/16 09:41; Admin Dose 1 APPLIC; Start 09/17/16 at 09:00 Vancomycin HCl 100 ml @ 100 mls/hr Q36H IVPB Last administered on 09/20/16 09 :41; Admin Dose 100 MLS/HR; Start 09/17/16 at 08:00 Total Parenteral Nutrition (Tpn) 1,000 ml @ 40 mls/hr Q24H IV Last administered on 09/20/16 15:30; Admin Dose 40 MLS/HR; Start 09/19/16 at 16:00 Miscellaneous Information (*Rx Drug Level Order Reminder*) VANCOMYCIN TROUGH AT 1900 ONCE ONCE XX ; Start 09/21/16 at 19:00; Stop 09/21/16 at 19:01 CHERRI ALAN Sep 21, 2016 10:31
--- NOTE | 2016-09-21 11:54 | RADRPT ---
PROCEDURE: Left upper extremity venous ultrasound CLINICAL INDICATION: Left arm pain and swelling. Deep venous thrombosis. Left upper extremity PICC line TECHNIQUE: Valiente scale, color doppler, spectral doppler ultrasound imaging of the venous system of the left upper extremity. Augmentation maneuvers were utilized. COMPARISON: No prior studies are available for comparison. FINDINGS: LEFT: Internal jugular vein: Patent. Subclavian vein: Possible partially occlusive thrombus is present. Axillary vein: Partially occlusive thrombus is present. Brachial vein: Patent. Basilic vein: Patent. Cephalic vein: Patent. Radial vein:Patent. Ulnar vein: Patent. IMPRESSION: Deep venous thrombosis involving the left axillary vein associated with the patients left upper extr emity PICC line. Possible partial thrombus also in the left subclavian vein also associated with the PICC line. RPTAT: AADD .Kleber Zhu MD, MD Date Time Electronically viewed and signed by .Kleber Zhu MD, on 09/21/2016 11:53 .B/
[2016-09-21] MEDS: COLLAGENASE 30 GM TUBE TOP SCH (12:08)
--- NOTE | 2016-09-21 14:08 | PN ---
DATE: 09/21/2016 The patient's clinical condition remains entirety unchanged. There was a family meeting which concl uded just a short while ago where, according to the nurse, the family again reiterated that they wan t everything done despite the fact that further treatment for this patient may be futile. As there are no further surgical recommendations, we will see again p.r.n. Dictated By: CASSANDRA TAVAREZ/EHSAN Conf#: [id number] DID#: [id number]
[2016-09-21] MEDS: FLUCONAZOLE 100 MG/NS (PMX) 50 ML IVPB SCH (14:10)
--- NOTE | 2016-09-21 14:59 | CONS ---
Date/Time of Note Date/Time of Note DATE: 09/21/16 TIME: 14:51 Consult Date/Type/Reason Admit Date/Time September 05, 2016 at 16:23 Initial Consult Date 09/06/16 Type of Consultation: Pulm/CCM Ordering Provider: MORIAH GARRIDO Subjective Awake and alert on vent. Transiently tolerated CPAP/PS yesterday. Objective Vital Signs Date Time Temp Pulse Resp B/P Pulse Ox O2 Delivery O2 Flow Rate FiO2 09/21/16 13:00 92 19 91/57 100 Mechanical Ventilator 09/21/16 12:00 98.3 09/21/16 08:00 30 Intake and Output 09/20/16 09/20/16 09/21/16 15:00 23:00 07:00 Intake Total 818.3 ml 667 ml 618 ml Output Total 950 ml 1025 ml 1400 ml Balance -131.7 ml -358 ml -782 ml Exam HEENT: Neck supple; no JVD; no LAD + ET tube in place CVS: RRR, S1 and S2 CHEST: Clear anteriorly ABD: Soft, NT, + BS EXT: +++edema Results/Medications Result Diagram: 09/20/16 0445 09/21/16 0400 Results 24 hrs Laboratory Tests Test 09/20/16 18:23 09/21/16 00:18 09/21/16 04:00 09/21/16 05:37 Bedside Glucose 153 127 142 Sodium Level 141 Potassium Level 3.8 Chloride Level 108 Carbon Dioxide Level 25 Anion Gap 12 Blood Urea Nitrogen 38 H Creatinine 0.83 Glucose Level 119 Calcium Level 9.4 Phosphorus Level 3.4 Magnesium Level 2.0 Test 09/21/16 12:07 Bedside Glucose 137 Medications Current Medications Acetaminophen (Tylenol Tab) 650 mg Q6H PRN PO PAIN LEVEL 1-3 OR FEVER; Start at 18:30 Morphine Sulfate (morphine) 2 mg Q4H PRN IV SEVERE PAIN LEVEL 7-10 Last administered on 09/19/16t 05:41; Admin Dose 2 MG; Start 09/05/16 at 18:30 Docusate Sodium (Colace) 100 mg Q12H PRN PO CONSTIPATION; Start 09/05/16 at 18: 30 Magnesium Hydroxide (Milk Of Mag) 30 ml DAILY PRN PO CONSTIPATION; Start at 18:30 Sodium Biphosphate/ Sodium Phosphate 133 ml 133 ml DAILY PRN NE CONSTIPATION; Start 09/05/16 at 18:30 Piperacillin Sod/ Tazobactam Sod (Zosyn 2.25gm/ 50ml (Pmx)) 50 ml @ 100 mls/hr Q6 IVPB Last administered on 09/21/16 12:06; Admin Dose 100 MLS/HR; Start at 00:00 Vancomycin HCl (Vanco Iv Per Pharmacy) VANCOMYCIN PER PHARMACY NOTE XX ; Start 09/05/16 at 18:30 Hydralazine HCl (Apresoline) 10 mg Q6H PRN IV ELEVATED BLOOD PRESSURE; Start at 18:30 Nitroglycerin (Nitroglycerin (Sl Tab) 0.4 Mg) 1 tab Q5M PRN SL ANGINA; Start at 18:30 Miscellaneous Information 1 ea NOTE XX ; Start 09/05/16 at 19:00 Glucose (Glutose) 15 gm Q15M PRN PO DECREASED GLUCOSE; Start 09/05/16 at 19:00 Glucose (Glutose) 22.5 gm Q15M PRN PO DECREASED GLUCOSE; Start 09/05/16 at 19: 00 Dextrose (D50w Syringe) 25 ml Q15M PRN IV DECREASED GLUCOSE; Start 09/05/16 at 19:00 Dextrose (D50w Syringe) 50 ml Q15M PRN IV DECREASED GLUCOSE; Start 09/05/16 at 19:00 Glucagon (Glucagen) 1 mg Q15M PRN IM DECREASED GLUCOSE; Start 09/05/16 at 19:00 Glucose 15 gm 15 gm Q15M PRN BUCCAL DECREASED GLUCOSE; Start 09/05/16 at 19:00 Ondansetron HCl/ Sodium Chloride (Zofran Inj/NS) 54 ml @ 216 mls/hr Q6H PRN IV NAUSEA AND/OR VOMITING Last administered on 09/07/16 17:27; Admin Dose 216 MLS/HR; Start 09/06/16 at 10:30 Pantoprazole 40 mg 40 mg BID@06,18 IV Last administered on 09/21/16 05:32; Admin Dose 40 MG; Start 09/08/16 at 18:00 Fluconazole/ Sodium Chloride 50 ml @ 50 mls/hr Q24H IVPB Last administered on 14:10; Admin Dose 50 MLS/HR; Start 09/09/16 at 14:30 Phenylephrine HCl/ Sodium Chloride (Julio-Syneph/NS) 500 ml @ 18.75 mls/ hr TITRATE IV ; Start 09/10/16 at 10:00 Miscellaneous Information PLEASE CHANGE ALL IVPB F... DAILY XX Last administered on 09/20/16 09:42; Admin Dose 1 EA; Start 09/10/16 at 08:30 Vasopressin 60 unit/Sodium Chloride 103 ml @ 0 mls/hr Q12H IVPB ; Start at 09:00; Status Future Hold Fat Emulsion Intravenous 500 ml @ 20.833 mls/ hr Q24H IV Last administered on 09/20/16 15:30; Admin Dose 20.833 MLS/HR; Start 09/11/16 at 16:00 Norepinephrine 16 mg/Sodium Chloride 500 ml @ 0 mls/hr TITRATE IV Last administered on 09/15/16 11:53; Admin Dose 3.75 MLS/HR; Start 09/11/16 at 20:31 Fentanyl (Sublimaze) 100 ml @ 5 mls/hr TITRATE IV Last administered on 07:36; Admin Dose 10 MLS/HR; Start 09/13/16 at 07:45 Hydrocortisone (Solu-Cortef) 50 mg Q8 IV Last administered on 09/21/16 14:10; Admin Dose 50 MG; Start 09/13/16 at 14:00 Lorazepam 1 mg 1 mg Q4 PRN IV ANXIETY Last administered on 09/20/16 05:56; Admin Dose 1 MG; Start 09/14/16 at 06:30 Midazolam HCl (Versed) 50 ml @ 1 mls/hr TITRATE IV ; Start 09/14/16 at 10:30 Insulin Aspart (Novolog Insulin Pen) NOVOLOG *MILD* ALGORI... Q6 SC Last administered on 09/21/16 05:39; Admin Dose 1 UNIT; Start 09/16/16 at 00:00 Collagenase 1 applic 1 applic DAILY TOP Last administered on 09/21/16 12:08; Admin Dose 1 APPLIC; Start 09/17/16 at 09:00 Vancomycin HCl 100 ml @ 100 mls/hr Q36H IVPB Last administered on 09/20/16 09 :41; Admin Dose 100 MLS/HR; Start 09/17/16 at 08:00 Total Parenteral Nutrition (Tpn) 1,000 ml @ 40 mls/hr Q24H IV Last administered on 09/20/16 15:30; Admin Dose 40 MLS/HR; Start 09/19/16 at 16:00 Miscellaneous Information (*Rx Drug Level Order Reminder*) VANCOMYCIN TROUGH AT 1900 ONCE ONCE XX ; Start 09/21/16 at 19:00; Stop 09/21/16 at 19:01 Assessment/Plan Additional Assessment/Plan IMP: 1. s/p Shock 2. Post colonoscopy perforated viscus: improved 3. 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 Chronic ureteral obstruction from #3 s/p nephrostomy tube bilateral 5. Severe cardiomyopathy with EF 20% thought to be likely ischemic 6. Occult GI bleed secondary to metastatic mass 7. Acute respiratory failure secondary to profound septic shock 9. New upper extremity DVT associated with PICC 10. Severe LE edema and anasarca 2/2 mass effect RECS: 1. Would only resume CPAP efforts if family is on board with DNR status with plans to extubate--if she passes weaning--recognizing that we would not re- intubate at any point thereafter, even if she develops resp failure immediately upon extubation. Therefore, family needs to be prepared for the possibility of transitioning to comfort care. Bases on my discussions, I do not believe the family is ready to proceed in this path. 40 min cc time REAL VASQUEZ MD Sep 21, 2016 14:59
--- NOTE | 2016-09-21 15:04 | PN ---
DATE: 09/21/2016 CARDIOLOGY FOLLOWUP SUBJECTIVE: Discussed with the staff. The patient is still intubated on the vent, unable to be wea raghu off. Nonverbal. MEDICATIONS: Reviewed. PHYSICAL EXAMINATION: VITAL SIGNS: Temperature 97.8, heart rate of 94, blood pressure 107/70, respiration rate of 19, sat ting 100%. HEENT: Normocephalic, atraumatic. Status post intubation on the vent. CARDIOVASCULAR: Regular rate and rhythm. PULMONARY: Mild rhonchi. GASTROINTESTINAL: No rebound or guarding. EXTREMITIES: Diffuse lower extremity edema. NEUROLOGIC: Awake, follows commands. Starting to be calm now. LABORATORY: Sodium 141, potassium 3.8, BUN of 38, creatinine 0.83, glucose 190. Mag is 2. Ultraso und showed DVT involving the left axillary vein. The PICC line partial thrombus also in the s ubclavian vein. ASSESSMENT AND PLAN: 1. Septic shock. 2. Perforated bowel following colonoscopy. 3. Severe cardiomyopathy. 4. Occult blood-positive stool and severe anemia. 5. Metastatic cervical cancer. 6. Lower extremity deep venous thrombosis. RECOMMENDATIONS: We will continue with the current cardiac care. Vent support will be continued. Diuresis as tolerated to be continued. unable to tolerate any JB inhibitor. Family is discu ssing with Dr. Stringer regarding tracheostomy versus of end of life issues. Dictated By: JIM ABDI MD AV/EHSAN Conf#: [id number] DID#: [id number] CC: CHERRI ALAN MD;*EndCC*
--- NOTE | 2016-09-21 15:35 | PN ---
Date/Time of Note Date/Time of Note DATE: 09/21/16 TIME: 15:31 Assessment/Plan VTE Prophylaxis VTE Prophylaxis Intervention: contraindicated Lines/Catheters Urinary Cath still in place: No Assessment/Plan Assessment/Plan Assessment/Plan Swollen left arm r/o DVT Respiratory failure Anemia/no overt GI bleeding Rule out intra-abdominal bleeding versus hemolysis versus GI bleeding with slow transit Post colonoscopy perforated viscus * Large pelvic mass invading colon wall site of perforation * Contrast leakage to pelvic area * ?Contained perforation as no evidence of generalized peritonitis Sepsis Metastatic cervical CA/Adrenal/brain History of cervical cancer S/P nephrostomy tube bilateral EF 20% Plan continue present management Case was discussed with Dr Durant Subjective 24 Hr Interval Summary Free Text/Dictation * Course reviewed with RN * patient seen and examined * no fever,left arm swollen * latest hemoglobin 9.4 Exam/Review of Systems Vital Signs Vitals Vital Signs Date Time Temp Pulse Resp B/P Pulse Ox O2 Delivery O2 Flow Rate FiO2 09/21/16 13:00 92 19 91/57 100 Mechanical Ventilator 09/21/16 12:00 98.3 09/21/16 08:00 30 Intake and Output 09/20/16 09/20/16 09/21/16 15:00 23:00 07:00 Intake Total 818.3 ml 667 ml 618 ml Output Total 950 ml 1025 ml 1400 ml Balance -131.7 ml -358 ml -782 ml Exam Constitutional: frail ENMT: intubated Respiratory: crackles/rales, diminished breath sounds, normal air movement Cardiovascular: nl pulses, regular rate and rhythm Gastrointestinal: bowel sounds, distended, firm, soft, No rebound or guarding Musculoskeletal: swelling Extremities: edema (swollen left upper arm) Neurological: other (on fentanyl) Skin: rash or lesions Results Result Diagram: 09/20/16 0445 09/21/16 0400 Results 24 hrs Laboratory Tests Test 09/20/16 18:23 09/21/16 00:18 09/21/16 04:00 09/21/16 05:37 Bedside Glucose 153 127 142 Sodium Level 141 Potassium Level 3.8 Chloride Level 108 Carbon Dioxide Level 25 Anion Gap 12 Blood Urea Nitrogen 38 H Creatinine 0.83 Glucose Level 119 Calcium Level 9.4 Phosphorus Level 3.4 Magnesium Level 2.0 Test 09/21/16 12:07 Bedside Glucose 137 Medications Medications Current Medications Acetaminophen (Tylenol Tab) 650 mg Q6H PRN PO PAIN LEVEL 1-3 OR FEVER; Start at 18:30 Morphine Sulfate (morphine) 2 mg Q4H PRN IV SEVERE PAIN LEVEL 7-10 Last administered on 09/19/16 05:41; Admin Dose 2 MG; Start 09/05/16 at 18:30 Docusate Sodium (Colace) 100 mg Q12H PRN PO CONSTIPATION; Start 09/05/16 at 18: 30 Magnesium Hydroxide (Milk Of Mag) 30 ml DAILY PRN PO CONSTIPATION; Start at 18:30 Sodium Biphosphate/ Sodium Phosphate 133 ml 133 ml DAILY PRN [place] CONSTIPATION; Start 09/05/16 at 18:30 Piperacillin Sod/ Tazobactam Sod (Zosyn 2.25gm/ 50ml (Pmx)) 50 ml @ 100 mls/hr Q6 IVPB Last administered on 09/21/16 12:06; Admin Dose 100 MLS/HR; Start at 00:00 Vancomycin HCl (Vanco Iv Per Pharmacy) VANCOMYCIN PER PHARMACY NOTE XX ; Start 09/05/16 at 18:30 Hydralazine HCl (Apresoline) 10 mg Q6H PRN IV ELEVATED BLOOD PRESSURE; Start at 18:30 Nitroglycerin (Nitroglycerin (Sl Tab) 0.4 Mg) 1 tab Q5M PRN SL ANGINA; Start at 18:30 Miscellaneous Information 1 ea NOTE XX ; Start 09/05/16 at 19:00 Glucose (Glutose) 15 gm Q15M PRN PO DECREASED GLUCOSE; Start 09/05/16 at 19:00 Glucose (Glutose) 22.5 gm Q15M PRN PO DECREASED GLUCOSE; Start 09/05/16 at 19: 00 Dextrose (D50w Syringe) 25 ml Q15M PRN IV DECREASED GLUCOSE; Start 09/05/16 at 19:00 Dextrose (D50w Syringe) 50 ml Q15M PRN IV DECREASED GLUCOSE; Start 09/05/16 at 19:00 Glucagon (Glucagen) 1 mg Q15M PRN IM DECREASED GLUCOSE; Start 09/05/16 at 19:00 Glucose 15 gm 15 gm Q15M PRN BUCCAL DECREASED GLUCOSE; Start 09/05/16 at 19:00 Ondansetron HCl/ Sodium Chloride (Zofran Inj/NS) 54 ml @ 216 mls/hr Q6H PRN IV NAUSEA AND/OR VOMITING Last administered on 09/07/16 17:27; Admin Dose 216 MLS/HR; Start 09/06/16 at 10:30 Pantoprazole 40 mg 40 mg BID@06,18 IV Last administered on 09/21/16 05:32; Admin Dose 40 MG; Start 09/08/16 at 18:00 Fluconazole/ Sodium Chloride 50 ml @ 50 mls/hr Q24H IVPB Last administered on 14:10; Admin Dose 50 MLS/HR; Start 09/09/16 at 14:30 Phenylephrine HCl/ Sodium Chloride (Julio-Syneph/NS) 500 ml @ 18.75 mls/ hr TITRATE IV ; Start 09/10/16 at 10:00 Miscellaneous Information PLEASE CHANGE ALL IVPB F... DAILY XX Last administered on 09/20/16 09:42; Admin Dose 1 EA; Start 09/10/16 at 08:30 Vasopressin 60 unit/Sodium Chloride 103 ml @ 0 mls/hr Q12H IVPB ; Start at 09:00; Status Future Hold Fat Emulsion Intravenous 500 ml @ 20.833 mls/ hr Q24H IV Last administered on 09/20/16 15:30; Admin Dose 20.833 MLS/HR; Start 09/11/16 at 16:00 Norepinephrine 16 mg/Sodium Chloride 500 ml @ 0 mls/hr TITRATE IV Last administered on 09/15/16 11:53; Admin Dose 3.75 MLS/HR; Start 09/11/16 at 20:31 Fentanyl (Sublimaze) 100 ml @ 5 mls/hr TITRATE IV Last administered on 07:36; Admin Dose 10 MLS/HR; Start 09/13/16 at 07:45 Hydrocortisone (Solu-Cortef) 50 mg Q8 IV Last administered on 09/21/16 14:10; Admin Dose 50 MG; Start 09/13/16 at 14:00 Lorazepam 1 mg 1 mg Q4 PRN IV ANXIETY Last administered on 09/20/16 05:56; Admin Dose 1 MG; Start 09/14/16 at 06:30 Midazolam HCl (Versed) 50 ml @ 1 mls/hr TITRATE IV ; Start 09/14/16 at 10:30 Insulin Aspart (Novolog Insulin Pen) NOVOLOG *MILD* ALGORI... Q6 SC Last administered on 09/21/16 05:39; Admin Dose 1 UNIT; Start 09/16/16 at 00:00 Collagenase 1 applic 1 applic DAILY TOP Last administered on 09/21/16 12:08; Admin Dose 1 APPLIC; Start 09/17/16 at 09:00 Vancomycin HCl 100 ml @ 100 mls/hr Q36H IVPB Last administered on 09/20/16 09 :41; Admin Dose 100 MLS/HR; Start 09/17/16 at 08:00 Total Parenteral Nutrition (Tpn) 1,000 ml @ 40 mls/hr Q24H IV Last administered on 09/20/16 15:30; Admin Dose 40 MLS/HR; Start 09/19/16 at 16:00 Miscellaneous Information (*Rx Drug Level Order Reminder*) VANCOMYCIN TROUGH AT 1900 ONCE ONCE XX ; Start 09/21/16 at 19:00; Stop 09/21/16 at 19:01 [place] DE LEON NP Sep 21, 2016 15:35
[2016-09-21] MEDS: FAT EMULSION 20% 500 ML IV SCH (16:05)
[2016-09-21] MEDS: TPN 1,000 ML IV SCH (17:18)
--- NOTE | 2016-09-21 20:14 | CONS ---
Date/Time of Note Date/Time of Note DATE: 09/21/16 TIME: 20:11 Assessment/Plan Assessment/Plan Chief Complaint/Hosp Course SUBJECTIVE: No events overnight, awake, looks comfortable, no fevers INDWELLINGS: Endotracheal tube, NG tube, PICC line, placed 09/11/2016, right chest Port-A-Cath, B nephrostomies. ANTIMICROBIALS: 1. IV vancomycin. 2. Fluconazole. 3. Zosyn. PHYSICAL EXAMINATION: GENERAL: Chronically ill-appearing, elderly woman, in no distress. HEENT: Head atraumatic, normocephalic. Sclerae anicteric. Buccal mucosa dry. NECK: Supple, trachea midline. CHEST: Chest rise is symmetrical. Breath sounds diminished to the bases. HEART: S1, S2. ABDOMEN: Soft, bowel tones present. Abdomen distended. Bowel tones hypoactive. EXTREMITIES: With bilateral edema. ASSESSMENT: 1. Sepsis ==> resolving, s/p shock and multisystem organ failure. 2. Large pelvic mass/ metastatic cervical cancer 3. Proximal sigmoid colon obstruction with perforation. 4. Urinary tract infection, per urinalysis. 5. Acute renal and respiratory failure. 6. LUE DVT PLAN: Remains hemodynamically stable, covered with broad-spectrum antibiotics, pt is not a candidate for oncology treatments, will dw surgical team if she still needs abx DW staff Problems: Consultation Date/Type/Reason Admit Date/Time September 05, 2016 at 16:23 Initial Consult Date 09/06/16 Type of Consultation: ID Referring Provider: MORIAH GARRDIO Exam/Review of Systems Vital Signs Vitals Vital Signs Date Time Temp Pulse Resp B/P Pulse Ox O2 Delivery O2 Flow Rate FiO2 09/21/16 18:00 127 27 127/88 100 Mechanical Ventilator 09/21/16 17:55 30 09/21/16 16:00 98.3 Intake and Output 09/20/16 09/20/16 09/21/16 15:00 23:00 07:00 Intake Total 818.3 ml 667 ml 618 ml Output Total 950 ml 1025 ml 1400 ml Balance -131.7 ml -358 ml -782 ml Results Result Diagram: 09/20/16 0445 09/21/16 0400 Results 24 hrs Laboratory Tests Test 09/21/16 00:18 09/21/16 04:00 09/21/16 05:37 09/21/16 12:07 Bedside Glucose 127 142 137 Sodium Level 141 Potassium Level 3.8 Chloride Level 108 Carbon Dioxide Level 25 Anion Gap 12 Blood Urea Nitrogen 38 H Creatinine 0.83 Glucose Level 119 Calcium Level 9.4 Phosphorus Level 3.4 Magnesium Level 2.0 Test 09/21/16 18:05 09/21/16 19:08 Bedside Glucose 144 Vancomycin Level Trough 12.0 Medications Medications Current Medications Acetaminophen (Tylenol Tab) 650 mg Q6H PRN PO PAIN LEVEL 1-3 OR FEVER; Start at 18:30 Morphine Sulfate (morphine) 2 mg Q4H PRN IV SEVERE PAIN LEVEL 7-10 Last administered on 09/19/16 05:41; Admin Dose 2 MG; Start 09/05/16 at 18:30 Docusate Sodium (Colace) 100 mg Q12H PRN PO CONSTIPATION; Start 09/05/16 at 18: 30 Magnesium Hydroxide (Milk Of Mag) 30 ml DAILY PRN PO CONSTIPATION; Start at 18:30 Sodium Biphosphate/ Sodium Phosphate 133 ml 133 ml DAILY PRN IN CONSTIPATION; Start 09/05/16 at 18:30 Piperacillin Sod/ Tazobactam Sod (Zosyn 2.25gm/ 50ml (Pmx)) 50 ml @ 100 mls/hr Q6 IVPB Last administered on 09/21/16 17:41; Admin Dose 100 MLS/HR; Start at 00:00 Vancomycin HCl (Vanco Iv Per Pharmacy) VANCOMYCIN PER PHARMACY NOTE XX ; Start 09/05/16 at 18:30 Hydralazine HCl (Apresoline) 10 mg Q6H PRN IV ELEVATED BLOOD PRESSURE; Start at 18:30 Nitroglycerin (Nitroglycerin (Sl Tab) 0.4 Mg) 1 tab Q5M PRN SL ANGINA; Start at 18:30 Miscellaneous Information 1 ea NOTE XX ; Start 09/05/16 at 19:00 Glucose (Glutose) 15 gm Q15M PRN PO DECREASED GLUCOSE; Start 09/05/16 at 19:00 Glucose (Glutose) 22.5 gm Q15M PRN PO DECREASED GLUCOSE; Start 09/05/16 at 19: 00 Dextrose (D50w Syringe) 25 ml Q15M PRN IV DECREASED GLUCOSE; Start 09/05/16 at 19:00 Dextrose (D50w Syringe) 50 ml Q15M PRN IV DECREASED GLUCOSE; Start 09/05/16 at 19:00 Glucagon (Glucagen) 1 mg Q15M PRN IM DECREASED GLUCOSE; Start 09/05/16 at 19:00 Glucose 15 gm 15 gm Q15M PRN BUCCAL DECREASED GLUCOSE; Start 09/05/16 at 19:00 Ondansetron HCl/ Sodium Chloride (Zofran Inj/NS) 54 ml @ 216 mls/hr Q6H PRN IV NAUSEA AND/OR VOMITING Last administered on 09/07/16 17:27; Admin Dose 216 MLS/HR; Start 09/06/16 at 10:30 Pantoprazole 40 mg 40 mg BID@06,18 IV Last administered on 09/21/16 17:41; Admin Dose 40 MG; Start 09/08/16 at 18:00 Fluconazole/ Sodium Chloride 50 ml @ 50 mls/hr Q24H IVPB Last administered on 14:10; Admin Dose 50 MLS/HR; Start 09/09/16 at 14:30 Phenylephrine HCl/ Sodium Chloride (Julio-Syneph/NS) 500 ml @ 18.75 mls/ hr TITRATE IV ; Start 09/10/16 at 10:00 Miscellaneous Information PLEASE CHANGE ALL IVPB F... DAILY XX Last administered on 09/20/16 09:42; Admin Dose 1 EA; Start 09/10/16 at 08:30 Vasopressin 60 unit/Sodium Chloride 103 ml @ 0 mls/hr Q12H IVPB ; Start at 09:00; Status Future Hold Fat Emulsion Intravenous 500 ml @ 20.833 mls/ hr Q24H IV Last administered on 09/21/16 16:05; Admin Dose 20.833 MLS/HR; Start 09/11/16 at 16:00 Norepinephrine 16 mg/Sodium Chloride 500 ml @ 0 mls/hr TITRATE IV Last administered on 09/15/16 11:53; Admin Dose 3.75 MLS/HR; Start 09/11/16 at 20:31 Fentanyl (Sublimaze) 100 ml @ 5 mls/hr TITRATE IV Last administered on 17:41; Admin Dose 10 MLS/HR; Start 09/13/16 at 07:45 Hydrocortisone (Solu-Cortef) 50 mg Q8 IV Last administered on 09/21/16 14:10; Admin Dose 50 MG; Start 09/13/16 at 14:00 Lorazepam 1 mg 1 mg Q4 PRN IV ANXIETY Last administered on 09/20/16 05:56; Admin Dose 1 MG; Start 09/14/16 at 06:30 Midazolam HCl (Versed) 50 ml @ 1 mls/hr TITRATE IV ; Start 09/14/16 at 10:30 Insulin Aspart (Novolog Insulin Pen) NOVOLOG *MILD* ALGORI... Q6 SC Last administered on 09/21/16 18:08; Admin Dose 1 UNIT; Start 09/16/16 at 00:00 Collagenase 1 applic 1 applic DAILY TOP Last administered on 09/21/16 12:08; Admin Dose 1 APPLIC; Start 09/17/16 at 09:00 Vancomycin HCl 100 ml @ 100 mls/hr Q36H IVPB Last administered on 09/20/16 09 :41; Admin Dose 100 MLS/HR; Start 09/17/16 at 08:00 Total Parenteral Nutrition (Tpn) 1,000 ml @ 40 mls/hr Q24H IV Last administered on 09/21/16 17:18; Admin Dose 40 MLS/HR; Start 09/19/16 at 16:00 BIN MITTAL NP Sep 21, 2016 20:14
[2016-09-21] MEDS: [UNRECOGNIZED DRUG - REMARK] XX SCH (20:20)
[2016-09-21] MEDS: VANCOMYCIN 500MG/NS (PMX) 100 ML IVPB SCH (20:26)
[2016-09-22] VITALS (37 sets, daily range): BP systolic 81–144; BP diastolic 49–101; PULSE 92–128; RESP 16–36
[2016-09-22] MEDS: PIPER-TAZO 2.25 GM (PMX) 50 ML IVPB SCH ×5 (00:22→23:26)
[2016-09-22] MEDS: INSULIN ASPART [NOVOLOG] 3 ML PEN SC SCH ×5 (00:29→23:31)
[2016-09-22] MEDS: FENTAnyl (DRIP) 1000 mcg/100mL 100 ML IV SCH ×3 (03:54→23:24)
[2016-09-22] MEDS: PANTOPRAZOLE 40 MG INJ IV SCH ×2 (06:02→18:23)
[2016-09-22] MEDS: FUROSEMIDE 20 MG INJ IV SCH ×2 (06:03→18:24)
[2016-09-22] MEDS: HYDROCORTISONE 100 MG INJ IV SCH ×3 (06:03→22:45)
--- NOTE | 2016-09-22 07:00 | PN ---
Date/Time of Note Date/Time of Note DATE: 09/22/16 TIME: 06:58 Assessment/Plan VTE Prophylaxis VTE Prophylaxis Intervention: ambulation Lines/Catheters IV Catheter Type (from [facility]): PICC Line Central line still needed: No Urinary Cath still in place: No Assessment/Plan Assessment/Plan 1. Nonoliguric acute kidney injury with unknown baseline creatinine. Etiology is secondary to hemodynamics, sepsis. - Renal function has improved. - At this point, continue current treatment plan, supportive care, renally dose all meds . 2. History of hydronephrosis, status post bilateral nephrostomy tubes, currently stable. -Continue current treatment plan. 3. Hyponatremia, improved. - Continue free water restriction. 4. Volume overload secondary to third spacing, mass effect, chf Continue Lasix, tolerating well. -monitor renal function -f/u cardiology 5. Ventilator dependent respiratory failure. Vent settings have been reviewed. ABG is reviewed. Continue to monitor. 6. Sepsis, status post shock. The patient is currently off pressors. Continue current antibiotic regimen. 7. Perforated bowel. Continue to monitor. Follow up with general surgeon. No plans for surgery at this time. 8. Elevated troponin, non-STEMI. Continue medical management. 9. History of metastatic cervical cancer. Continue to monitor. 10. Cardiomyopathy. Continue medical management. 11. Anemia with possible GI bleed. Continue to monitor hemoglobin and hematocrit levels. 12. Nutrition. Continue TPN. Subjective 24 Hr Interval Summary Free Text/Dictation The patient is in critical but stable. No other acute events noted. No hemoptysis, hematemesis, or hematochezia. d/w RN Exam/Review of Systems Vital Signs Vitals Vital Signs Date Time Temp Pulse Resp B/P Pulse Ox O2 Delivery O2 Flow Rate FiO2 09/22/16 06:00 106 25 123/75 100 Mechanical Ventilator 09/22/16 05:31 30 09/22/16 04:00 98.1 Intake and Output 09/21/16 09/21/16 09/22/16 15:00 23:00 07:00 Intake Total 628 ml 616.332 ml 585.831 ml Output Total 915 ml 1210 ml 480 ml Balance -287 ml -593.668 ml 105.831 ml Exam Head is normocephalic. NECK: Supple. HEART: Regular rate. LUNGS: Show diminished breath sounds at base. ABDOMEN: Soft, nontender to palpation without rebound or guarding. EXTREMITIES: Negative for clubbing, cyanosis. Positive edema, diffuse anasarca. DERMATOLOGIC: No rashes. MUSCULOSKELETAL: No joint effusions. NEUROLOGIC: No change in exam. Results Result Diagram: 09/20/16 0445 09/21/16 0400 Results 24 hrs Laboratory Tests Test 09/21/16 12:07 09/21/16 18:05 09/21/16 19:08 09/22/16 00:21 Bedside Glucose 137 144 147 Vancomycin Level Trough 12.0 Test 09/22/16 06:42 Bedside Glucose 149 Medications Medications Current Medications Acetaminophen (Tylenol Tab) 650 mg Q6H PRN PO PAIN LEVEL 1-3 OR FEVER; Start at 18:30 Morphine Sulfate (morphine) 2 mg Q4H PRN IV SEVERE PAIN LEVEL 7-10 Last administered on 09/19/16 05:41; Admin Dose 2 MG; Start 09/05/16 at 18:30 Docusate Sodium (Colace) 100 mg Q12H PRN PO CONSTIPATION; Start 09/05/16 at 18: 30 Magnesium Hydroxide (Milk Of Mag) 30 ml DAILY PRN PO CONSTIPATION; Start at 18:30 Sodium Biphosphate/ Sodium Phosphate 133 ml 133 ml DAILY PRN [place] CONSTIPATION; Start 09/05/16 at 18:30 Piperacillin Sod/ Tazobactam Sod (Zosyn 2.25gm/ 50ml (Pmx)) 50 ml @ 100 mls/hr Q6 IVPB Last administered on 09/22/16 06:02; Admin Dose 100 MLS/HR; Start at 00:00 Vancomycin HCl (Vanco Iv Per Pharmacy) VANCOMYCIN PER PHARMACY NOTE XX ; Start 09/05/16 at 18:30 Hydralazine HCl (Apresoline) 10 mg Q6H PRN IV ELEVATED BLOOD PRESSURE; Start at 18:30 Nitroglycerin (Nitroglycerin (Sl Tab) 0.4 Mg) 1 tab Q5M PRN SL ANGINA; Start at 18:30 Miscellaneous Information 1 ea NOTE XX ; Start 09/05/16 at 19:00 Glucose (Glutose) 15 gm Q15M PRN PO DECREASED GLUCOSE; Start 09/05/16 at 19:00 Glucose (Glutose) 22.5 gm Q15M PRN PO DECREASED GLUCOSE; Start 09/05/16 at 19: 00 Dextrose (D50w Syringe) 25 ml Q15M PRN IV DECREASED GLUCOSE; Start 09/05/16 at 19:00 Dextrose (D50w Syringe) 50 ml Q15M PRN IV DECREASED GLUCOSE; Start 09/05/16 at 19:00 Glucagon (Glucagen) 1 mg Q15M PRN IM DECREASED GLUCOSE; Start 09/05/16 at 19:00 Glucose 15 gm 15 gm Q15M PRN BUCCAL DECREASED GLUCOSE; Start 09/05/16 at 19:00 Ondansetron HCl/ Sodium Chloride (Zofran Inj/NS) 54 ml @ 216 mls/hr Q6H PRN IV NAUSEA AND/OR VOMITING Last administered on 09/07/16 17:27; Admin Dose 216 MLS/HR; Start 09/06/16 at 10:30 Pantoprazole 40 mg 40 mg BID@06,18 IV Last administered on 09/22/16 06:02; Admin Dose 40 MG; Start 09/08/16 at 18:00 Fluconazole/ Sodium Chloride 50 ml @ 50 mls/hr Q24H IVPB Last administered on 14:10; Admin Dose 50 MLS/HR; Start 09/09/16 at 14:30 Phenylephrine HCl/ Sodium Chloride (Julio-Syneph/NS) 500 ml @ 18.75 mls/ hr TITRATE IV ; Start 09/10/16 at 10:00 Miscellaneous Information PLEASE CHANGE ALL IVPB F... DAILY XX Last administered on 09/20/16 09:42; Admin Dose 1 EA; Start 09/10/16 at 08:30 Vasopressin 60 unit/Sodium Chloride 103 ml @ 0 mls/hr Q12H IVPB ; Start at 09:00; Status Future Hold Fat Emulsion Intravenous 500 ml @ 20.833 mls/ hr Q24H IV Last administered on 09/21/16 16:05; Admin Dose 20.833 MLS/HR; Start 09/11/16 at 16:00 Norepinephrine 16 mg/Sodium Chloride 500 ml @ 0 mls/hr TITRATE IV Last administered on 09/15/16 11:53; Admin Dose 3.75 MLS/HR; Start 09/11/16 at 20:31 Fentanyl (Sublimaze) 100 ml @ 5 mls/hr TITRATE IV Last administered on 03:54; Admin Dose 10 MLS/HR; Start 09/13/16 at 07:45 Hydrocortisone (Solu-Cortef) 50 mg Q8 IV Last administered on 09/22/16 06:03; Admin Dose 50 MG; Start 09/13/16 at 14:00 Lorazepam 1 mg 1 mg Q4 PRN IV ANXIETY Last administered on 09/20/16 05:56; Admin Dose 1 MG; Start 09/14/16 at 06:30 Midazolam HCl (Versed) 50 ml @ 1 mls/hr TITRATE IV ; Start 09/14/16 at 10:30 Insulin Aspart (Novolog Insulin Pen) NOVOLOG *MILD* ALGORI... Q6 SC Last administered on 09/22/16 06:47; Admin Dose 1 UNIT; Start 09/16/16 at 00:00 Collagenase 1 applic 1 applic DAILY TOP Last administered on 09/21/16 12:08; Admin Dose 1 APPLIC; Start 09/17/16 at 09:00 Vancomycin HCl 100 ml @ 100 mls/hr Q36H IVPB Last administered on 09/21/16 20 :26; Admin Dose 100 MLS/HR; Start 09/17/16 at 08:00 Total Parenteral Nutrition (Tpn) 1,000 ml @ 40 mls/hr Q24H IV Last administered on 09/21/16 17:18; Admin Dose 40 MLS/HR; Start 09/19/16 at 16:00 URIEL TERRAZAS DO Sep 22, 2016 07:00
[2016-09-22 07:32] LABS: CREATININE 0.8 mg/dl (0.44-1.00); PHOSPHORUS 3.5 mg/dl (2.5-4.9); POTASSIUM 3.8 mmol/L (3.5-5.1)
--- NOTE | 2016-09-22 09:51 | CONS ---
Date/Time of Note Date/Time of Note DATE: 09/22/16 TIME: 09:47 Assessment/Plan Assessment/Plan Additional Assessment/Plan Ventilator setting; AC of 16, tidal volume 500, PEEP of 5, 30% FiO2. Patient currently on fentanyl drip at 100 mics per hour. Also on TPN. Next Assessment and recommendations; next 1. Patient admitted for severe sepsis due to bowel perforation, patient deemed to high surgical risk for any intervention. Clinically however has improved but still requiring full ventilator support, currently not in a position to be extubated. 2. Generalized anasarca. 3. History of bilateral nephrostomies in the past. 4. Widely metastatic cervical cancer. 5. Anemia. 6. Thrombocytopenia. 7. 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 Continue current supportive care. Patient likely need to have a tracheostomy performed. Overall prognosis remains extremely poor. Patient will need to have a PICC line replaced to the other side. Consultation Date/Type/Reason Admit Date/Time September 05, 2016 at 16:23 Initial Consult Date 09/06/16 Type of Consultation: Pulmonary/critical care Referring Provider: MORIAH GARRIDO 24 HR Interval Summary Free Text/Dictation Patient condition remains critical. Still requiring full ventilator support. Patient however has remained hemodynamically stable. General exam; elderly woman, orally intubated, awake and alert. Follows simple commands. Exam/Review of Systems Vital Signs Vitals Vital Signs Date Time Temp Pulse Resp B/P Pulse Ox O2 Delivery O2 Flow Rate FiO2 09/22/16 08:00 111 09/22/16 07:55 23 100 30 09/22/16 06:00 123/75 Mechanical Ventilator 09/22/16 04:00 98.1 Intake and Output 09/21/16 09/21/16 09/22/16 15:00 23:00 07:00 Intake Total 628 ml 616.332 ml 585.831 ml Output Total 915 ml 1210 ml 480 ml Balance -287 ml -593.668 ml 105.831 ml Exam HEENT exam is; supple neck, no lymphadenopathy. Positive JVD. No thyromegaly. Pupils are small bilaterally. Patient has fair dentition. Orally intubated. Chest examination; diminished but clear breath sounds. S1-S2 audible, no murmurs. Regular rhythm. Abdomen exam is; soft, mildly distended. Nontender. Bowel sounds are absent. Bilateral nephrostomy tubes are present. Extremity exam; 2+ anasarca. ONCOLOGY COORDINATOR examination of Will patient awake, alert follows simple commands and moves all 4 extremities. However still has significant generalized muscular weakness. Results Result Diagram: 09/20/16 0445 09/22/16 0605 Results 24 hrs Laboratory Tests Test 09/21/16 12:07 09/21/16 18:05 09/21/16 19:08 09/22/16 00:21 Bedside Glucose 137 144 147 Vancomycin Level Trough 12.0 Test 09/22/16 06:05 09/22/16 06:42 Sodium Level 141 Potassium Level 3.8 Chloride Level 108 Carbon Dioxide Level 25 Anion Gap 12 Blood Urea Nitrogen 36 H Creatinine 0.80 Glucose Level 186 Calcium Level 10.0 Phosphorus Level 3.5 Magnesium Level 2.0 Bedside Glucose 149 Medications Medications Current Medications Acetaminophen (Tylenol Tab) 650 mg Q6H PRN PO PAIN LEVEL 1-3 OR FEVER; Start at 18:30 Morphine Sulfate (morphine) 2 mg Q4H PRN IV SEVERE PAIN LEVEL 7-10 Last administered on 09/19/16 05:41; Admin Dose 2 MG; Start 09/05/16 at 18:30 Docusate Sodium (Colace) 100 mg Q12H PRN PO CONSTIPATION; Start 09/05/16 at 18: 30 Magnesium Hydroxide (Milk Of Mag) 30 ml DAILY PRN PO CONSTIPATION; Start at 18:30 Sodium Biphosphate/ Sodium Phosphate 133 ml 133 ml DAILY PRN [place] CONSTIPATION; Start 09/05/16 at 18:30 Piperacillin Sod/ Tazobactam Sod (Zosyn 2.25gm/ 50ml (Pmx)) 50 ml @ 100 mls/hr Q6 IVPB Last administered on 09/22/16 06:02; Admin Dose 100 MLS/HR; Start at 00:00 Vancomycin HCl (Vanco Iv Per Pharmacy) VANCOMYCIN PER PHARMACY NOTE XX ; Start 09/05/16 at 18:30 Hydralazine HCl (Apresoline) 10 mg Q6H PRN IV ELEVATED BLOOD PRESSURE; Start at 18:30 Nitroglycerin (Nitroglycerin (Sl Tab) 0.4 Mg) 1 tab Q5M PRN SL ANGINA; Start at 18:30 Miscellaneous Information 1 ea NOTE XX ; Start 09/05/16 at 19:00 Glucose (Glutose) 15 gm Q15M PRN PO DECREASED GLUCOSE; Start 09/05/16 at 19:00 Glucose (Glutose) 22.5 gm Q15M PRN PO DECREASED GLUCOSE; Start 09/05/16 at 19: 00 Dextrose (D50w Syringe) 25 ml Q15M PRN IV DECREASED GLUCOSE; Start 09/05/16 at 19:00 Dextrose (D50w Syringe) 50 ml Q15M PRN IV DECREASED GLUCOSE; Start 09/05/16 at 19:00 Glucagon (Glucagen) 1 mg Q15M PRN IM DECREASED GLUCOSE; Start 09/05/16 at 19:00 Glucose 15 gm 15 gm Q15M PRN BUCCAL DECREASED GLUCOSE; Start 09/05/16 at 19:00 Ondansetron HCl/ Sodium Chloride (Zofran Inj/NS) 54 ml @ 216 mls/hr Q6H PRN IV NAUSEA AND/OR VOMITING Last administered on 09/07/16 17:27; Admin Dose 216 MLS/HR; Start 09/06/16 at 10:30 Pantoprazole 40 mg 40 mg BID@06,18 IV Last administered on 09/22/16 06:02; Admin Dose 40 MG; Start 09/08/16 at 18:00 Fluconazole/ Sodium Chloride 50 ml @ 50 mls/hr Q24H IVPB Last administered on 14:10; Admin Dose 50 MLS/HR; Start 09/09/16 at 14:30 Phenylephrine HCl/ Sodium Chloride (Julio-Syneph/NS) 500 ml @ 18.75 mls/ hr TITRATE IV ; Start 09/10/16 at 10:00 Miscellaneous Information PLEASE CHANGE ALL IVPB F... DAILY XX Last administered on 09/20/16 09:42; Admin Dose 1 EA; Start 09/10/16 at 08:30 Vasopressin 60 unit/Sodium Chloride 103 ml @ 0 mls/hr Q12H IVPB ; Start at 09:00; Status Future Hold Fat Emulsion Intravenous 500 ml @ 20.833 mls/ hr Q24H IV Last administered on 09/21/16 16:05; Admin Dose 20.833 MLS/HR; Start 09/11/16 at 16:00 Norepinephrine 16 mg/Sodium Chloride 500 ml @ 0 mls/hr TITRATE IV Last administered on 09/15/16 11:53; Admin Dose 3.75 MLS/HR; Start 09/11/16 at 20:31 Fentanyl (Sublimaze) 100 ml @ 5 mls/hr TITRATE IV Last administered on 03:54; Admin Dose 10 MLS/HR; Start 09/13/16 at 07:45 Hydrocortisone (Solu-Cortef) 50 mg Q8 IV Last administered on 09/22/16 06:03; Admin Dose 50 MG; Start 09/13/16 at 14:00 Lorazepam 1 mg 1 mg Q4 PRN IV ANXIETY Last administered on 09/20/16 05:56; Admin Dose 1 MG; Start 09/14/16 at 06:30 Midazolam HCl (Versed) 50 ml @ 1 mls/hr TITRATE IV ; Start 09/14/16 at 10:30 Insulin Aspart (Novolog Insulin Pen) NOVOLOG *MILD* ALGORI... Q6 SC Last administered on 09/22/16 06:47; Admin Dose 1 UNIT; Start 09/16/16 at 00:00 Collagenase 1 applic 1 applic DAILY TOP Last administered on 09/21/16 12:08; Admin Dose 1 APPLIC; Start 09/17/16 at 09:00 Vancomycin HCl 100 ml @ 100 mls/hr Q36H IVPB Last administered on 09/21/16 20 :26; Admin Dose 100 MLS/HR; Start 09/17/16 at 08:00 Total Parenteral Nutrition (Tpn) 1,000 ml @ 40 mls/hr Q24H IV Last administered on 09/21/16 17:18; Admin Dose 40 MLS/HR; Start 09/19/16 at 16:00 SKYLER ESTEVES 12, 2017 09:51
--- NOTE | 2016-09-22 09:54 | CONS ---
Date/Time of Note Date/Time of Note DATE: 09/22/16 TIME: 09:47 Assessment/Plan Assessment/Plan Additional Assessment/Plan Metastatic cervical CA/Adrenal/brain History of cervical cancer Respiratory Failure Family conference was done today with patients about to siblings in attendance. For an extensive discussion of prior conversations with family members please refer to my notes over the succeeding last few weeks. At this time patient remains intubated and has failed one trial of CPAP. Patient three children participate in all decisions on behalf of their mother. During the conversation of background information was discussed patient's goals of care and acceptable quality of life were discussed. It is known that she has an advanced directive on her chart which indicates she would like to have full resuscitation. All family members questions grants only in so far as her current medical condition there are no pain and symptomatic issues that should be addressed. Family members have made it very clear that they will discuss issues of trach code and acceptable level of care today. However members of the healthcare delivery team are not invited to that discussion. That is not to say they do not welcome suggestions. My suggestion family members to proceed with tracheostomy and that they could readdress removal of trach at patients end of life. I asked family members to call me today after they have discussed trach with the third sibling who lives in [place]. Once again I suggest tracheostomy in readdress Palliative Care issues later in the course of her hospitalization. Consultation Date/Type/Reason Admit Date/Time September 05, 2016 at 16:23 Initial Consult Date 09/06/16 Type of Consultation: ID Referring Provider: MORIAH GARRIDO Exam/Review of Systems Vital Signs Vitals Vital Signs Date Time Temp Pulse Resp B/P Pulse Ox O2 Delivery O2 Flow Rate FiO2 09/22/16 08:00 111 09/22/16 07:55 23 100 30 09/22/16 06:00 123/75 Mechanical Ventilator 09/22/16 04:00 98.1 Intake and Output 09/21/16 09/21/16 09/22/16 15:00 23:00 07:00 Intake Total 628 ml 616.332 ml 585.831 ml Output Total 915 ml 1210 ml 480 ml Balance -287 ml -593.668 ml 105.831 ml Results Result Diagram: 09/20/16 0445 09/22/16 0605 Results 24 hrs Laboratory Tests Test 09/21/16 12:07 09/21/16 18:05 09/21/16 19:08 09/22/16 00:21 Bedside Glucose 137 144 147 Vancomycin Level Trough 12.0 Test 09/22/16 06:05 09/22/16 06:42 Sodium Level 141 Potassium Level 3.8 Chloride Level 108 Carbon Dioxide Level 25 Anion Gap 12 Blood Urea Nitrogen 36 H Creatinine 0.80 Glucose Level 186 Calcium Level 10.0 Phosphorus Level 3.5 Magnesium Level 2.0 Bedside Glucose 149 Medications Medications Current Medications Acetaminophen (Tylenol Tab) 650 mg Q6H PRN PO PAIN LEVEL 1-3 OR FEVER; Start at 18:30 Morphine Sulfate (morphine) 2 mg Q4H PRN IV SEVERE PAIN LEVEL 7-10 Last administered on 09/19/16 05:41; Admin Dose 2 MG; Start 09/05/16 at 18:30 Docusate Sodium (Colace) 100 mg Q12H PRN PO CONSTIPATION; Start 09/05/16 at 18: 30 Magnesium Hydroxide (Milk Of Mag) 30 ml DAILY PRN PO CONSTIPATION; Start at 18:30 Sodium Biphosphate/ Sodium Phosphate 133 ml 133 ml DAILY PRN [place] CONSTIPATION; Start 09/05/16 at 18:30 Piperacillin Sod/ Tazobactam Sod (Zosyn 2.25gm/ 50ml (Pmx)) 50 ml @ 100 mls/hr Q6 IVPB Last administered on 09/22/16 06:02; Admin Dose 100 MLS/HR; Start at 00:00 Vancomycin HCl (Vanco Iv Per Pharmacy) VANCOMYCIN PER PHARMACY NOTE XX ; Start 09/05/16 at 18:30 Hydralazine HCl (Apresoline) 10 mg Q6H PRN IV ELEVATED BLOOD PRESSURE; Start at 18:30 Nitroglycerin (Nitroglycerin (Sl Tab) 0.4 Mg) 1 tab Q5M PRN SL ANGINA; Start at 18:30 Miscellaneous Information 1 ea NOTE XX ; Start 09/05/16 at 19:00 Glucose (Glutose) 15 gm Q15M PRN PO DECREASED GLUCOSE; Start 09/05/16 at 19:00 Glucose (Glutose) 22.5 gm Q15M PRN PO DECREASED GLUCOSE; Start 09/05/16 at 19: 00 Dextrose (D50w Syringe) 25 ml Q15M PRN IV DECREASED GLUCOSE; Start 09/05/16 at 19:00 Dextrose (D50w Syringe) 50 ml Q15M PRN IV DECREASED GLUCOSE; Start 09/05/16 at 19:00 Glucagon (Glucagen) 1 mg Q15M PRN IM DECREASED GLUCOSE; Start 09/05/16 at 19:00 Glucose 15 gm 15 gm Q15M PRN BUCCAL DECREASED GLUCOSE; Start 09/05/16 at 19:00 Ondansetron HCl/ Sodium Chloride (Zofran Inj/NS) 54 ml @ 216 mls/hr Q6H PRN IV NAUSEA AND/OR VOMITING Last administered on 09/07/16 17:27; Admin Dose 216 MLS/HR; Start 09/06/16 at 10:30 Pantoprazole 40 mg 40 mg BID@06,18 IV Last administered on 09/22/16 06:02; Admin Dose 40 MG; Start 09/08/16 at 18:00 Fluconazole/ Sodium Chloride 50 ml @ 50 mls/hr Q24H IVPB Last administered on 14:10; Admin Dose 50 MLS/HR; Start 09/09/16 at 14:30 Phenylephrine HCl/ Sodium Chloride (Julio-Syneph/NS) 500 ml @ 18.75 mls/ hr TITRATE IV ; Start 09/10/16 at 10:00 Miscellaneous Information PLEASE CHANGE ALL IVPB F... DAILY XX Last administered on 09/20/16 09:42; Admin Dose 1 EA; Start 09/10/16 at 08:30 Vasopressin 60 unit/Sodium Chloride 103 ml @ 0 mls/hr Q12H IVPB ; Start at 09:00; Status Future Hold Fat Emulsion Intravenous 500 ml @ 20.833 mls/ hr Q24H IV Last administered on 09/21/16 16:05; Admin Dose 20.833 MLS/HR; Start 09/11/16 at 16:00 Norepinephrine 16 mg/Sodium Chloride 500 ml @ 0 mls/hr TITRATE IV Last administered on 09/15/16 11:53; Admin Dose 3.75 MLS/HR; Start 09/11/16 at 20:31 Fentanyl (Sublimaze) 100 ml @ 5 mls/hr TITRATE IV Last administered on 03:54; Admin Dose 10 MLS/HR; Start 09/13/16 at 07:45 Hydrocortisone (Solu-Cortef) 50 mg Q8 IV Last administered on 09/22/16 06:03; Admin Dose 50 MG; Start 09/13/16 at 14:00 Lorazepam 1 mg 1 mg Q4 PRN IV ANXIETY Last administered on 09/20/16 05:56; Admin Dose 1 MG; Start 09/14/16 at 06:30 Midazolam HCl (Versed) 50 ml @ 1 mls/hr TITRATE IV ; Start 09/14/16 at 10:30 Insulin Aspart (Novolog Insulin Pen) NOVOLOG *MILD* ALGORI... Q6 SC Last administered on 09/22/16 06:47; Admin Dose 1 UNIT; Start 09/16/16 at 00:00 Collagenase 1 applic 1 applic DAILY TOP Last administered on 09/21/16 12:08; Admin Dose 1 APPLIC; Start 09/17/16 at 09:00 Vancomycin HCl 100 ml @ 100 mls/hr Q36H IVPB Last administered on 09/21/16 20 :26; Admin Dose 100 MLS/HR; Start 09/17/16 at 08:00 Total Parenteral Nutrition (Tpn) 1,000 ml @ 40 mls/hr Q24H IV Last administered on 09/21/16 17:18; Admin Dose 40 MLS/HR; Start 09/19/16 at 16:00 MORIAH GARRIDO Sep 22, 2016 09:54
--- NOTE | 2016-09-22 10:11 | CONS ---
Date/Time of Note Date/Time of Note DATE: 09/19/16 TIME: 10:09 Assessment/Plan Assessment/Plan Additional Assessment/Plan Long conversation with family members once again. Discuss trach code status and goals of care. We have scheduled a more comprehensive family discussion on September 21. Consultation Date/Type/Reason Admit Date/Time September 05, 2016 at 16:23 Initial Consult Date 09/06/16 Type of Consultation: Pulmonary/critical care Referring Provider: MORIAH GARRIDO Exam/Review of Systems Vital Signs Vitals Vital Signs Date Time Temp Pulse Resp B/P Pulse Ox O2 Delivery O2 Flow Rate FiO2 09/22/16 09:51 101 22 100 30 09/22/16 06:00 123/75 Mechanical Ventilator 09/22/16 04:00 98.1 Intake and Output 09/21/16 09/21/16 09/22/16 15:00 23:00 07:00 Intake Total 628 ml 616.332 ml 585.831 ml Output Total 915 ml 1210 ml 480 ml Balance -287 ml -593.668 ml 105.831 ml Results Result Diagram: 09/20/16 0445 09/22/16 0605 Results 24 hrs Laboratory Tests Test 09/21/16 12:07 09/21/16 18:05 09/21/16 19:08 09/22/16 00:21 Bedside Glucose 137 144 147 Vancomycin Level Trough 12.0 Test 09/22/16 06:05 09/22/16 06:42 Sodium Level 141 Potassium Level 3.8 Chloride Level 108 Carbon Dioxide Level 25 Anion Gap 12 Blood Urea Nitrogen 36 H Creatinine 0.80 Glucose Level 186 Calcium Level 10.0 Phosphorus Level 3.5 Magnesium Level 2.0 Bedside Glucose 149 Medications Medications Current Medications Acetaminophen (Tylenol Tab) 650 mg Q6H PRN PO PAIN LEVEL 1-3 OR FEVER; Start at 18:30 Morphine Sulfate (morphine) 2 mg Q4H PRN IV SEVERE PAIN LEVEL 7-10 Last administered on 09/19/16t 05:41; Admin Dose 2 MG; Start 09/05/16 at 18:30 Docusate Sodium (Colace) 100 mg Q12H PRN PO CONSTIPATION; Start 09/05/16 at 18: 30 Magnesium Hydroxide (Milk Of Mag) 30 ml DAILY PRN PO CONSTIPATION; Start at 18:30 Sodium Biphosphate/ Sodium Phosphate 133 ml 133 ml DAILY PRN [place] CONSTIPATION; Start 09/05/16 at 18:30 Piperacillin Sod/ Tazobactam Sod (Zosyn 2.25gm/ 50ml (Pmx)) 50 ml @ 100 mls/hr Q6 IVPB Last administered on 09/22/16 06:02; Admin Dose 100 MLS/HR; Start at 00:00 Vancomycin HCl (Vanco Iv Per Pharmacy) VANCOMYCIN PER PHARMACY NOTE XX ; Start 09/05/16 at 18:30 Hydralazine HCl (Apresoline) 10 mg Q6H PRN IV ELEVATED BLOOD PRESSURE; Start at 18:30 Nitroglycerin (Nitroglycerin (Sl Tab) 0.4 Mg) 1 tab Q5M PRN SL ANGINA; Start at 18:30 Miscellaneous Information 1 ea NOTE XX ; Start 09/05/16 at 19:00 Glucose (Glutose) 15 gm Q15M PRN PO DECREASED GLUCOSE; Start 09/05/16 at 19:00 Glucose (Glutose) 22.5 gm Q15M PRN PO DECREASED GLUCOSE; Start 09/05/16 at 19: 00 Dextrose (D50w Syringe) 25 ml Q15M PRN IV DECREASED GLUCOSE; Start 09/05/16 at 19:00 Dextrose (D50w Syringe) 50 ml Q15M PRN IV DECREASED GLUCOSE; Start 09/05/16 at 19:00 Glucagon (Glucagen) 1 mg Q15M PRN IM DECREASED GLUCOSE; Start 09/05/16 at 19:00 Glucose 15 gm 15 gm Q15M PRN BUCCAL DECREASED GLUCOSE; Start 09/05/16 at 19:00 Ondansetron HCl/ Sodium Chloride (Zofran Inj/NS) 54 ml @ 216 mls/hr Q6H PRN IV NAUSEA AND/OR VOMITING Last administered on 09/07/16 17:27; Admin Dose 216 MLS/HR; Start 09/06/16 at 10:30 Pantoprazole 40 mg 40 mg BID@06,18 IV Last administered on 09/22/16 06:02; Admin Dose 40 MG; Start 09/08/16 at 18:00 Fluconazole/ Sodium Chloride 50 ml @ 50 mls/hr Q24H IVPB Last administered on 14:10; Admin Dose 50 MLS/HR; Start 09/09/16 at 14:30 Phenylephrine HCl/ Sodium Chloride (Julio-Syneph/NS) 500 ml @ 18.75 mls/ hr TITRATE IV ; Start 09/10/16 at 10:00 Miscellaneous Information PLEASE CHANGE ALL IVPB F... DAILY XX Last administered on 09/20/16 09:42; Admin Dose 1 EA; Start 09/10/16 at 08:30 Vasopressin 60 unit/Sodium Chloride 103 ml @ 0 mls/hr Q12H IVPB ; Start at 09:00; Status Future Hold Fat Emulsion Intravenous 500 ml @ 20.833 mls/ hr Q24H IV Last administered on 09/21/16 16:05; Admin Dose 20.833 MLS/HR; Start 09/11/16 at 16:00 Norepinephrine 16 mg/Sodium Chloride 500 ml @ 0 mls/hr TITRATE IV Last administered on 09/15/16 11:53; Admin Dose 3.75 MLS/HR; Start 09/11/16 at 20:31 Fentanyl (Sublimaze) 100 ml @ 5 mls/hr TITRATE IV Last administered on 03:54; Admin Dose 10 MLS/HR; Start 09/13/16 at 07:45 Hydrocortisone (Solu-Cortef) 50 mg Q8 IV Last administered on 09/22/16 06:03; Admin Dose 50 MG; Start 09/13/16 at 14:00 Lorazepam 1 mg 1 mg Q4 PRN IV ANXIETY Last administered on 09/20/16 05:56; Admin Dose 1 MG; Start 09/14/16 at 06:30 Midazolam HCl (Versed) 50 ml @ 1 mls/hr TITRATE IV ; Start 09/14/16 at 10:30 Insulin Aspart (Novolog Insulin Pen) NOVOLOG *MILD* ALGORI... Q6 SC Last administered on 09/22/16 06:47; Admin Dose 1 UNIT; Start 09/16/16 at 00:00 Collagenase 1 applic 1 applic DAILY TOP Last administered on 09/21/16 12:08; Admin Dose 1 APPLIC; Start 09/17/16 at 09:00 Vancomycin HCl 100 ml @ 100 mls/hr Q36H IVPB Last administered on 09/21/16 20 :26; Admin Dose 100 MLS/HR; Start 09/17/16 at 08:00 Total Parenteral Nutrition (Tpn) 1,000 ml @ 40 mls/hr Q24H IV Last administered on 09/21/16 17:18; Admin Dose 40 MLS/HR; Start 09/19/16 at 16:00 MORIAH GARRIDO Sep 22, 2016 10:11
--- NOTE | 2016-09-22 12:16 | PN ---
Date/Time of Note Date/Time of Note DATE: 09/22/16 TIME: 11:59 Assessment/Plan VTE Prophylaxis VTE Prophylaxis Intervention: SCD's Lines/Catheters IV C[facility]ter Type (from [facility]): PICC Line Central line still needed: Yes Urinary Cath still in place: No Assessment/Plan Chief Complaint/Hosp Course ASSESSMENT: 1. Shock. Most probably underlying septic shock. Likely secondary to perforated sigmoid colon versus early pneumonia Status post IV pressors, off pressors at this time. Continue antibiotics as per infectious disease recommendations. Pancultures negative so far. 2. Post colonoscopy perforated viscus large pelvic mass invading colon wall site of perforation, contrast leakage to pelvic area, Contained perforation as no evidence of generalized peritonitis Continue antibiotics, Contrast leakage to pelvic area: not seen on last CT Contained perforation as no evidence of generalized peritonitis General surgery has been consulted, follow general surgery recommendations 3. History of metastatic cervical cancer. Status post radiation and chemo. Currently, getting palliative chemotherapy. Palliative care already following the patient. 4. Hypochromic anemia. Etiology unclear. Status post 2 units of PRBC transfusion. Hemoglobin and hematocrit are stable Continue proton pump inhibitors. 5. Chronic ureteral obstruction , s/p Bilateral nephrostomy tubes. Continue monitoring. 6. Acute respiratory failure. Pulmonology has been consulted, continue vent management 7. Cardiomyopathy with ejection fraction of 20%. Cardiology has been consulted 8. Possible underlying ileus. Continue p.r.n. antiemetics. Continue Zosyn and vancomycin. Gastroenterology following the patient. 9. Severe LE edema and anasarca 2/2 mass effect Deep venous thrombosis prophylaxis. Bilateral sequential compression devices. Gastrointestinal prophylaxis. Proton pump inhibitors. Prognosis: Fair PLAN: 1. Continue intensive care unit monitoring. 2. [employer] Consultant management and recommendations is appreciated Problems: Subjective 24 Hr Interval Summary Free Text/Dictation Patient remains intubated On sedation via fentanyl On TPN Patient family has met with the palliative care physician yesterday regarding CODE STATUS and respiratory status. Patient family has decided to proceed with tracheostomy placement Exam/Review of Systems Vital Signs Vitals Vital Signs Date Time Temp Pulse Resp B/P Pulse Ox O2 Delivery O2 Flow Rate FiO2 09/22/16 11:40 97 19 100 30 09/22/16 06:00 123/75 Mechanical Ventilator 09/22/16 04:00 98.1 Intake and Output 09/21/16 09/21/16 09/22/16 15:00 23:00 07:00 Intake Total 628 ml 616.332 ml 585.831 ml Output Total 915 ml 1210 ml 480 ml Balance -287 ml -593.668 ml 105.831 ml Exam General: The patient is lying in bed comfortably, anasarca, intubated HEENT: Atraumatic, normocephalic. The pupils are equal and round . NG tube in place Neck: Supple Chest/thorax/lumbar: Normal , nephrostomy tube 2 Lungs: Decreased breath sounds bilateral lower lung field, no rales or rhonchi Heart: Normal S1-S2, Regular rhythm and rate. Abdomen: Soft , nontender, nondistended , bowel sounds are present. Extremities: Generalized edema bilateral lower extremity, by right thigh there is an ostomy which is filled with fluid, no cyanosis Neurologic: Patient is awake and alert, able to follow simple commands only Results Result Diagram: 09/20/16 0445 09/22/16 0605 Results 24 hrs Laboratory Tests Test 09/21/16 12:07 09/21/16 18:05 09/21/16 19:08 09/22/16 00:21 Bedside Glucose 137 144 147 Vancomycin Level Trough 12.0 Test 09/22/16 06:05 09/22/16 06:42 Sodium Level 141 Potassium Level 3.8 Chloride Level 108 Carbon Dioxide Level 25 Anion Gap 12 Blood Urea Nitrogen 36 H Creatinine 0.80 Glucose Level 186 Calcium Level 10.0 Phosphorus Level 3.5 Magnesium Level 2.0 Bedside Glucose 149 Medications Medications Current Medications Acetaminophen (Tylenol Tab) 650 mg Q6H PRN PO PAIN LEVEL 1-3 OR FEVER; Start at 18:30 Morphine Sulfate (morphine) 2 mg Q4H PRN IV SEVERE PAIN LEVEL 7-10 Last administered on 09/19/16t 05:41; Admin Dose 2 MG; Start 09/05/16 at 18:30 Docusate Sodium (Colace) 100 mg Q12H PRN PO CONSTIPATION; Start 09/05/16 at 18: 30 Magnesium Hydroxide (Milk Of Mag) 30 ml DAILY PRN PO CONSTIPATION; Start at 18:30 Sodium Biphosphate/ Sodium Phosphate 133 ml 133 ml DAILY PRN [place] CONSTIPATION; Start 09/05/16 at 18:30 Piperacillin Sod/ Tazobactam Sod (Zosyn 2.25gm/ 50ml (Pmx)) 50 ml @ 100 mls/hr Q6 IVPB Last administered on 09/22/16 06:02; Admin Dose 100 MLS/HR; Start at 00:00 Vancomycin HCl (Vanco Iv Per Pharmacy) VANCOMYCIN PER PHARMACY NOTE XX ; Start 09/05/16 at 18:30 Hydralazine HCl (Apresoline) 10 mg Q6H PRN IV ELEVATED BLOOD PRESSURE; Start at 18:30 Nitroglycerin (Nitroglycerin (Sl Tab) 0.4 Mg) 1 tab Q5M PRN SL ANGINA; Start at 18:30 Miscellaneous Information 1 ea NOTE XX ; Start 09/05/16 at 19:00 Glucose (Glutose) 15 gm Q15M PRN PO DECREASED GLUCOSE; Start 09/05/16 at 19:00 Glucose (Glutose) 22.5 gm Q15M PRN PO DECREASED GLUCOSE; Start 09/05/16 at 19: 00 Dextrose (D50w Syringe) 25 ml Q15M PRN IV DECREASED GLUCOSE; Start 09/05/16 at 19:00 Dextrose (D50w Syringe) 50 ml Q15M PRN IV DECREASED GLUCOSE; Start 09/05/16 at 19:00 Glucagon (Glucagen) 1 mg Q15M PRN IM DECREASED GLUCOSE; Start 09/05/16 at 19:00 Glucose 15 gm 15 gm Q15M PRN BUCCAL DECREASED GLUCOSE; Start 09/05/16 at 19:00 Ondansetron HCl/ Sodium Chloride (Zofran Inj/NS) 54 ml @ 216 mls/hr Q6H PRN IV NAUSEA AND/OR VOMITING Last administered on 09/07/16 17:27; Admin Dose 216 MLS/HR; Start 09/06/16 at 10:30 Pantoprazole 40 mg 40 mg BID@06,18 IV Last administered on 09/22/16 06:02; Admin Dose 40 MG; Start 09/08/16 at 18:00 Fluconazole/ Sodium Chloride 50 ml @ 50 mls/hr Q24H IVPB Last administered on 14:10; Admin Dose 50 MLS/HR; Start 09/09/16 at 14:30 Phenylephrine HCl/ Sodium Chloride (Julio-Syneph/NS) 500 ml @ 18.75 mls/ hr TITRATE IV ; Start 09/10/16 at 10:00 Miscellaneous Information PLEASE CHANGE ALL IVPB F... DAILY XX Last administered on 09/20/16 09:42; Admin Dose 1 EA; Start 09/10/16 at 08:30 Vasopressin 60 unit/Sodium Chloride 103 ml @ 0 mls/hr Q12H IVPB ; Start at 09:00; Status Future Hold Fat Emulsion Intravenous 500 ml @ 20.833 mls/ hr Q24H IV Last administered on 09/21/16 16:05; Admin Dose 20.833 MLS/HR; Start 09/11/16 at 16:00 Norepinephrine 16 mg/Sodium Chloride 500 ml @ 0 mls/hr TITRATE IV Last administered on 09/15/16 11:53; Admin Dose 3.75 MLS/HR; Start 09/11/16 at 20:31 Fentanyl (Sublimaze) 100 ml @ 5 mls/hr TITRATE IV Last administered on 03:54; Admin Dose 10 MLS/HR; Start 09/13/16 at 07:45 Hydrocortisone (Solu-Cortef) 50 mg Q8 IV Last administered on 09/22/16 06:03; Admin Dose 50 MG; Start 09/13/16 at 14:00 Lorazepam 1 mg 1 mg Q4 PRN IV ANXIETY Last administered on 09/20/16 05:56; Admin Dose 1 MG; Start 09/14/16 at 06:30 Midazolam HCl (Versed) 50 ml @ 1 mls/hr TITRATE IV ; Start 09/14/16 at 10:30 Insulin Aspart (Novolog Insulin Pen) NOVOLOG *MILD* ALGORI... Q6 SC Last administered on 09/22/16 06:47; Admin Dose 1 UNIT; Start 09/16/16 at 00:00 Collagenase 1 applic 1 applic DAILY TOP Last administered on 09/21/16 12:08; Admin Dose 1 APPLIC; Start 09/17/16 at 09:00 Vancomycin HCl 100 ml @ 100 mls/hr Q36H IVPB Last administered on 09/21/16 20 :26; Admin Dose 100 MLS/HR; Start 09/17/16 at 08:00 Total Parenteral Nutrition (Tpn) 1,000 ml @ 40 mls/hr Q24H IV Last administered on 09/21/16t 17:18; Admin Dose 40 MLS/HR; Start 09/19/16 at 16:00 VEENA DEL ANGEL MD Sep 22, 2016 12:09
[2016-09-22] MEDS: COLLAGENASE 30 GM TUBE TOP SCH (12:42)
--- NOTE | 2016-09-22 13:10 | CONS ---
Date/Time of Note Date/Time of Note DATE: 09/22/16 TIME: 13:07 Assessment/Plan Assessment/Plan Chief Complaint/Hosp Course SUBJECTIVE: No events overnight, awake, looks comfortable, no fevers INDWELLINGS: Endotracheal tube, NG tube, PICC line, placed 09/11/2016, right chest Port-A-Cath, B nephrostomies. ANTIMICROBIALS: 1. IV vancomycin. 2. Fluconazole. 3. Zosyn. PHYSICAL EXAMINATION: GENERAL: Chronically ill-appearing, elderly woman, in no distress. HEENT: Head atraumatic, normocephalic. Sclerae anicteric. Buccal mucosa dry. NECK: Supple, trachea midline. CHEST: Chest rise is symmetrical. Breath sounds diminished to the bases. HEART: S1, S2. ABDOMEN: Soft, bowel tones present. Abdomen distended. Bowel tones hypoactive. EXTREMITIES: With bilateral edema. ASSESSMENT: 1. Sepsis ==> resolving, s/p shock and multisystem organ failure. 2. Large pelvic mass/ metastatic cervical cancer 3. Proximal sigmoid colon obstruction with perforation. 4. Urinary tract infection, per urinalysis. 5. Acute renal and respiratory failure. 6. LUE DVT with PICC present PLAN: Remains hemodynamically stable, covered with broad-spectrum antibiotics, not a candidate for oncology treatments, no surgical intervention planned, will dw surgical team if she still needs abx DW staff Problems: Consultation Date/Type/Reason Admit Date/Time September 05, 2016 at 16:23 Initial Consult Date 09/06/16 Type of Consultation: ID Referring Provider: MORIAH GARRIDO Exam/Review of Systems Vital Signs Vitals Vital Signs Date Time Temp Pulse Resp B/P Pulse Ox O2 Delivery O2 Flow Rate FiO2 09/22/16 11:40 97 19 100 30 09/22/16 06:00 123/75 Mechanical Ventilator 09/22/16 04:00 98.1 Intake and Output 09/21/16 09/21/16 09/22/16 15:00 23:00 07:00 Intake Total 628 ml 616.332 ml 585.831 ml Output Total 915 ml 1210 ml 480 ml Balance -287 ml -593.668 ml 105.831 ml Results Result Diagram: 09/20/16 0445 09/22/16 0605 Results 24 hrs Laboratory Tests Test 09/21/16 18:05 09/21/16 19:08 09/22/16 00:21 09/22/16 06:05 Bedside Glucose 144 147 Vancomycin Level Trough 12.0 Sodium Level 141 Potassium Level 3.8 Chloride Level 108 Carbon Dioxide Level 25 Anion Gap 12 Blood Urea Nitrogen 36 H Creatinine 0.80 Glucose Level 186 Calcium Level 10.0 Phosphorus Level 3.5 Magnesium Level 2.0 Test 09/22/16 06:42 09/22/16 12:41 Bedside Glucose 149 150 Medications Medications Current Medications Acetaminophen (Tylenol Tab) 650 mg Q6H PRN PO PAIN LEVEL 1-3 OR FEVER; Start at 18:30 Morphine Sulfate (morphine) 2 mg Q4H PRN IV SEVERE PAIN LEVEL 7-10 Last administered on 09/19/16 05:41; Admin Dose 2 MG; Start 09/05/16 at 18:30 Docusate Sodium (Colace) 100 mg Q12H PRN PO CONSTIPATION; Start 09/05/16 at 18: 30 Magnesium Hydroxide (Milk Of Mag) 30 ml DAILY PRN PO CONSTIPATION; Start at 18:30 Sodium Biphosphate/ Sodium Phosphate 133 ml 133 ml DAILY PRN [place] CONSTIPATION; Start 09/05/16 at 18:30 Piperacillin Sod/ Tazobactam Sod (Zosyn 2.25gm/ 50ml (Pmx)) 50 ml @ 100 mls/hr Q6 IVPB Last administered on 09/22/16 12:43; Admin Dose 100 MLS/HR; Start at 00:00 Vancomycin HCl (Vanco Iv Per Pharmacy) VANCOMYCIN PER PHARMACY NOTE XX ; Start 09/05/16 at 18:30 Hydralazine HCl (Apresoline) 10 mg Q6H PRN IV ELEVATED BLOOD PRESSURE; Start at 18:30 Nitroglycerin (Nitroglycerin (Sl Tab) 0.4 Mg) 1 tab Q5M PRN SL ANGINA; Start at 18:30 Miscellaneous Information 1 ea NOTE XX ; Start 09/05/16 at 19:00 Glucose (Glutose) 15 gm Q15M PRN PO DECREASED GLUCOSE; Start 09/05/16 at 19:00 Glucose (Glutose) 22.5 gm Q15M PRN PO DECREASED GLUCOSE; Start 09/05/16 at 19: 00 Dextrose (D50w Syringe) 25 ml Q15M PRN IV DECREASED GLUCOSE; Start 09/05/16 at 19:00 Dextrose (D50w Syringe) 50 ml Q15M PRN IV DECREASED GLUCOSE; Start 09/05/16 at 19:00 Glucagon (Glucagen) 1 mg Q15M PRN IM DECREASED GLUCOSE; Start 09/05/16 at 19:00 Glucose 15 gm 15 gm Q15M PRN BUCCAL DECREASED GLUCOSE; Start 09/05/16 at 19:00 Ondansetron HCl/ Sodium Chloride (Zofran Inj/NS) 54 ml @ 216 mls/hr Q6H PRN IV NAUSEA AND/OR VOMITING Last administered on 09/07/16 17:27; Admin Dose 216 MLS/HR; Start 09/06/16 at 10:30 Pantoprazole 40 mg 40 mg BID@06,18 IV Last administered on 09/22/16 06:02; Admin Dose 40 MG; Start 09/08/16 at 18:00 Fluconazole/ Sodium Chloride 50 ml @ 50 mls/hr Q24H IVPB Last administered on 14:10; Admin Dose 50 MLS/HR; Start 09/09/16 at 14:30 Phenylephrine HCl/ Sodium Chloride (Julio-Syneph/NS) 500 ml @ 18.75 mls/ hr TITRATE IV ; Start 09/10/16 at 10:00 Miscellaneous Information PLEASE CHANGE ALL IVPB F... DAILY XX Last administered on 09/20/16 09:42; Admin Dose 1 EA; Start 09/10/16 at 08:30 Vasopressin 60 unit/Sodium Chloride 103 ml @ 0 mls/hr Q12H IVPB ; Start at 09:00; Status Future Hold Fat Emulsion Intravenous 500 ml @ 20.833 mls/ hr Q24H IV Last administered on 09/21/16 16:05; Admin Dose 20.833 MLS/HR; Start 09/11/16 at 16:00 Norepinephrine 16 mg/Sodium Chloride 500 ml @ 0 mls/hr TITRATE IV Last administered on 09/15/16 11:53; Admin Dose 3.75 MLS/HR; Start 09/11/16 at 20:31 Fentanyl (Sublimaze) 100 ml @ 5 mls/hr TITRATE IV Last administered on 03:54; Admin Dose 10 MLS/HR; Start 09/13/16 at 07:45 Hydrocortisone (Solu-Cortef) 50 mg Q8 IV Last administered on 09/22/16 06:03; Admin Dose 50 MG; Start 09/13/16 at 14:00 Lorazepam 1 mg 1 mg Q4 PRN IV ANXIETY Last administered on 09/20/16 05:56; Admin Dose 1 MG; Start 09/14/16 at 06:30 Midazolam HCl (Versed) 50 ml @ 1 mls/hr TITRATE IV ; Start 09/14/16 at 10:30 Insulin Aspart (Novolog Insulin Pen) NOVOLOG *MILD* ALGORI... Q6 SC Last administered on 09/22/16 12:44; Admin Dose 1 UNIT; Start 09/16/16 at 00:00 Collagenase 1 applic 1 applic DAILY TOP Last administered on 09/22/16 12:42; Admin Dose 1 APPLIC; Start 09/17/16 at 09:00 Vancomycin HCl 100 ml @ 100 mls/hr Q36H IVPB Last administered on 09/21/16 20 :26; Admin Dose 100 MLS/HR; Start 09/17/16 at 08:00 Total Parenteral Nutrition (Tpn) 1,000 ml @ 40 mls/hr Q24H IV Last administered on 09/21/16 17:18; Admin Dose 40 MLS/HR; Start 09/19/16 at 16:00 BIN MITTAL NP Sep 22, 2016 13:10
[2016-09-22] MEDS: FLUCONAZOLE 100 MG/NS (PMX) 50 ML IVPB SCH (15:57)
[2016-09-22] MEDS: FAT EMULSION 20% 500 ML IV SCH (15:57)
[2016-09-22] MEDS: TPN 1,000 ML IV SCH (18:24)
--- NOTE | 2016-09-22 19:36 | PN ---
DATE: 09/22/2016 CARDIOLOGY FOLLOWUP SUBJECTIVE: Discussed with the son, discussed with the staff. Rhythm strip was reviewed. The glaids ent remains in sinus rhythm, sinus tachycardia. Status post intubation on the vent still. MEDICATIONS: Reviewed. PHYSICAL EXAMINATION: VITAL SIGNS: Temperature 98.4, heart rate of 120, blood pressure 107/78, respiratory rate of 23. HEENT: Normocephalic, atraumatic. Status post intubation on the vent. CARDIOVASCULAR: Tachycardic. PULMONARY: Diffuse rhonchi throughout the lungs. GASTROINTESTINAL: Soft with no rebound. EXTREMITIES: Diffuse lower extremity edema. NEUROLOGIC: Awake, responds appropriately. PSYCHIATRIC: Appears to be calm now. LABORATORY: Sodium 141, potassium 3.8, BUN of 36, creatinine 0.8, glucose 186. Mag is 2.0. ASSESSMENT AND PLAN: 1. Severe cardiomyopathy. 2. Hypoxemic respiratory failure, status post tracheostomy, ventilator dependent. 3. Status post perforated bowel. 4. Fluid overload and congestive heart failure. 5. Malnutrition. 6. History of cervical cancer with metastasis. 7. Sepsis and shock. RECOMMENDATIONS: Continue with IV Lasix as tolerated. Electrolytes to be corrected as needed. I w ill check the digoxin level and, if able to tolerate extra digoxin, I will give additional digoxin a s well. Ventilator will be continued, as patient is still FULL CODE after discussion with Dr. Homar mendoza and the family. Dictated By: JIM ABDI MD AV/EHSAN Conf#: [id number] DID#: [id number] CC: ONEIDA COLEMAN; VEENA DEL ANGEL MD;*EndCC*
[2016-09-22] MEDS: [UNRECOGNIZED DRUG - REMARK] XX SCH (20:29)
[2016-09-23] VITALS (35 sets, daily range): BP systolic 87–137; BP diastolic 54–127; PULSE 90–121; RESP 14–29
[2016-09-23] MEDS: PANTOPRAZOLE 40 MG INJ IV SCH ×2 (05:32→17:25)
[2016-09-23] MEDS: HYDROCORTISONE 100 MG INJ IV SCH ×3 (05:32→21:51)
[2016-09-23] MEDS: PIPER-TAZO 2.25 GM (PMX) 50 ML IVPB SCH ×2 (05:32→12:14)
[2016-09-23] MEDS: FUROSEMIDE 20 MG INJ IV SCH ×2 (06:00→08:29)
[2016-09-23] MEDS: INSULIN ASPART [NOVOLOG] 3 ML PEN SC SCH ×3 (06:06→17:26)
[2016-09-23 07:20] LABS: CALCIUM 10.2 mg/dl (8.4-10.2); CREATININE 0.85 mg/dl (0.44-1.00); MAGNESIUM 2.1 mg/dl (1.7-2.5); PHOSPHORUS 3.7 mg/dl (2.5-4.9); POTASSIUM 3.7 mmol/L (3.5-5.1)
[2016-09-23] MEDS: VANCOMYCIN 500MG/NS (PMX) 100 ML IVPB SCH (08:29)
[2016-09-23] MEDS: [UNRECOGNIZED DRUG - REMARK] XX SCH (09:00)
[2016-09-23] MEDS: COLLAGENASE 30 GM TUBE TOP SCH (09:47)
--- NOTE | 2016-09-23 10:10 | PN ---
Date/Time of Note Date/Time of Note DATE: 09/23/16 TIME: 10:05 Assessment/Plan VTE Prophylaxis VTE Prophylaxis Intervention: SCD's Lines/Catheters IV Catheter Type (from [facility]): PICC Line Central line still needed: Yes Urinary Cath still in place: No Assessment/Plan Chief Complaint/Hosp Course ASSESSMENT: 1. Shock. Most probably underlying septic shock. resolved status post aggressive medical management, IV fluid, pressors and antibiotics Likely secondary to perforated sigmoid colon versus early pneumonia Status post IV pressors, off pressors at this time. Continue antibiotics as per infectious disease recommendations. Pancultures negative so far. 2. Post colonoscopy perforated viscus large pelvic mass invading colon wall site of perforation, contrast leakage to pelvic area, Contained perforation as no evidence of generalized peritonitis Continue antibiotics, Contrast leakage to pelvic area: not seen on last CT Contained perforation as no evidence of generalized peritonitis General surgery has been consulted, follow general surgery recommendations 3. History of metastatic cervical cancer. Status post radiation and chemo. Currently, getting palliative chemotherapy. Palliative care already following the patient. 4. Hypochromic anemia. Etiology unclear. Status post PRBC transfusion. Hemoglobin and hematocrit are stable Continue proton pump inhibitors. Follow-up CBC in a.m. 5. Chronic ureteral obstruction , s/p Bilateral nephrostomy tubes. Continue monitoring. 6. Acute respiratory failure. Pulmonology has been consulted, continue vent management 7. Cardiomyopathy with ejection fraction of 20%. Cardiology has been consulted 8. Possible underlying ileus. Continue p.r.n. antiemetics. Continue Zosyn and vancomycin. Gastroenterology following the patient. 9. Severe LE edema and anasarca 2/2 mass effect 10. Stage III sacral decubitus, continue wound care, repositioning as protocol Deep venous thrombosis prophylaxis. Bilateral sequential compression devices. Gastrointestinal prophylaxis. Proton pump inhibitors. Prognosis: Fair PLAN: 1. Continue intensive care unit monitoring. 2. 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 Problems: Subjective 24 Hr Interval Summary Free Text/Dictation No acute changes Patient responds to questions by nodding her head NG tube in place On TPN New evidence of blood in nephrostomy tube Positive tarry black stool today Exam/Review of Systems Vital Signs Vitals Vital Signs Date Time Temp Pulse Resp B/P Pulse Ox O2 Delivery O2 Flow Rate FiO2 09/23/16 09:00 102 19 100 30 09/23/16 06:00 108/73 Mechanical Ventilator 09/23/16 04:00 98.4 Intake and Output 09/22/16 09/22/16 09/23/16 15:00 23:00 07:00 Intake Total 618 ml 866.165 ml 605.831 ml Output Total 800 ml 790 ml 830 ml Balance -182 ml 76.165 ml -224.169 ml Exam General: The patient is Not in acute distress. HEENT: Atraumatic, normocephalic. The pupils are equal and round . NG tube is in place Neck: Supple Chest: Normal Lungs: Clear to auscultation bilaterally Heart: Normal S1-S2, Regular rhythm and rate. Abdomen: Soft , nontender, nondistended , bowel sounds are present. Nephrostomy tube 2 Extremities: +2 edema no cyanosis Neurologic: The patient is awake, alert Results Result Diagram: 09/20/16 0445 09/23/16 0545 Results 24 hrs Laboratory Tests Test 09/22/16 12:41 09/22/16 18:28 09/22/16 23:28 09/23/16 05:45 Bedside Glucose 150 157 161 Sodium Level 145 H Potassium Level 3.7 Chloride Level 109 Carbon Dioxide Level 28 Anion Gap 12 Blood Urea Nitrogen 44 H Creatinine 0.85 Glucose Level 158 Calcium Level 10.2 Phosphorus Level 3.7 Magnesium Level 2.1 Digoxin Level 0.9 L Test 09/23/16 05:50 Bedside Glucose 165 Medications Medications Current Medications Acetaminophen (Tylenol Tab) 650 mg Q6H PRN PO PAIN LEVEL 1-3 OR FEVER; Start at 18:30 Morphine Sulfate (morphine) 2 mg Q4H PRN IV SEVERE PAIN LEVEL 7-10 Last administered on 09/19/16t 05:41; Admin Dose 2 MG; Start 09/05/16 at 18:30 Docusate Sodium (Colace) 100 mg Q12H PRN PO CONSTIPATION; Start 09/05/16 at 18: 30 Magnesium Hydroxide (Milk Of Mag) 30 ml DAILY PRN PO CONSTIPATION; Start at 18:30 Sodium Biphosphate/ Sodium Phosphate 133 ml 133 ml DAILY PRN [place] CONSTIPATION; Start 09/05/16 at 18:30 Piperacillin Sod/ Tazobactam Sod (Zosyn 2.25gm/ 50ml (Pmx)) 50 ml @ 100 mls/hr Q6 IVPB Last administered on 09/23/16 05:32; Admin Dose 100 MLS/HR; Start at 00:00 Vancomycin HCl (Vanco Iv Per Pharmacy) VANCOMYCIN PER PHARMACY NOTE XX ; Start 09/05/16 at 18:30 Hydralazine HCl (Apresoline) 10 mg Q6H PRN IV ELEVATED BLOOD PRESSURE; Start at 18:30 Nitroglycerin (Nitroglycerin (Sl Tab) 0.4 Mg) 1 tab Q5M PRN SL ANGINA; Start at 18:30 Miscellaneous Information 1 ea NOTE XX ; Start 09/05/16 at 19:00 Glucose (Glutose) 15 gm Q15M PRN PO DECREASED GLUCOSE; Start 09/05/16 at 19:00 Glucose (Glutose) 22.5 gm Q15M PRN PO DECREASED GLUCOSE; Start 09/05/16 at 19: 00 Dextrose (D50w Syringe) 25 ml Q15M PRN IV DECREASED GLUCOSE; Start 09/05/16 at 19:00 Dextrose (D50w Syringe) 50 ml Q15M PRN IV DECREASED GLUCOSE; Start 09/05/16 at 19:00 Glucagon (Glucagen) 1 mg Q15M PRN IM DECREASED GLUCOSE; Start 09/05/16 at 19:00 Glucose 15 gm 15 gm Q15M PRN BUCCAL DECREASED GLUCOSE; Start 09/05/16 at 19:00 Ondansetron HCl/ Sodium Chloride (Zofran Inj/NS) 54 ml @ 216 mls/hr Q6H PRN IV NAUSEA AND/OR VOMITING Last administered on 09/07/16 17:27; Admin Dose 216 MLS/HR; Start 09/06/16 at 10:30 Pantoprazole 40 mg 40 mg BID@06,18 IV Last administered on 09/23/16 05:32; Admin Dose 40 MG; Start 09/08/16 at 18:00 Fluconazole/ Sodium Chloride 50 ml @ 50 mls/hr Q24H IVPB Last administered on 15:57; Admin Dose 50 MLS/HR; Start 09/09/16 at 14:30 Phenylephrine HCl/ Sodium Chloride (Julio-Syneph/NS) 500 ml @ 18.75 mls/ hr TITRATE IV ; Start 09/10/16 at 10:00 Miscellaneous Information PLEASE CHANGE ALL IVPB F... DAILY XX Last administered on 09/20/16 09:42; Admin Dose 1 EA; Start 09/10/16 at 08:30 Vasopressin 60 unit/Sodium Chloride 103 ml @ 0 mls/hr Q12H IVPB ; Start at 09:00; Status Future Hold Fat Emulsion Intravenous 500 ml @ 20.833 mls/ hr Q24H IV Last administered on 09/22/16 15:57; Admin Dose 20.833 MLS/HR; Start 09/11/16 at 16:00 Norepinephrine 16 mg/Sodium Chloride 500 ml @ 0 mls/hr TITRATE IV Last administered on 09/15/16 11:53; Admin Dose 3.75 MLS/HR; Start 09/11/16 at 20:31 Fentanyl (Sublimaze) 100 ml @ 5 mls/hr TITRATE IV Last administered on 23:24; Admin Dose 10 MLS/HR; Start 09/13/16 at 07:45 Hydrocortisone (Solu-Cortef) 50 mg Q8 IV Last administered on 09/23/16 05:32; Admin Dose 50 MG; Start 09/13/16 at 14:00 Lorazepam 1 mg 1 mg Q4 PRN IV ANXIETY Last administered on 09/20/16 05:56; Admin Dose 1 MG; Start 09/14/16 at 06:30 Midazolam HCl (Versed) 50 ml @ 1 mls/hr TITRATE IV ; Start 09/14/16 at 10:30 Insulin Aspart (Novolog Insulin Pen) NOVOLOG *MILD* ALGORI... Q6 SC Last administered on 09/23/16 06:06; Admin Dose 1 UNIT; Start 09/16/16 at 00:00 Collagenase 1 applic 1 applic DAILY TOP Last administered on 09/23/16 09:47; Admin Dose 1 APPLIC; Start 09/17/16 at 09:00 Vancomycin HCl 100 ml @ 100 mls/hr Q36H IVPB Last administered on 09/23/16 08 :29; Admin Dose 100 MLS/HR; Start 09/17/16 at 08:00 Total Parenteral Nutrition (Tpn) 1,000 ml @ 40 mls/hr Q24H IV Last administered on 09/22/16 18:24; Admin Dose 40 MLS/HR; Start 09/19/16 at 16:00 Furosemide (Lasix) 20 mg DAILY IV Last administered on 09/23/16t 08:29; Admin Dose 20 MG; Start 09/23/16 at 09:00 VEENA DEL ANGEL MD Sep 23, 2016 10:10
--- NOTE | 2016-09-23 10:45 | PN ---
DATE: 09/23/2016 SUBJECTIVE: The patient noted to have blood coming out of the right nephrostomy tube, serosanguineo us. No other events noted. No hemoptysis, hematemesis or hematochezia. OBJECTIVE: VITAL SIGNS: Blood pressure 108/72, respiration 14, pulse 109, temperature 98.4. HEENT: Normocephalic. NECK: Supple. HEART: Regular rate. LUNGS: Show diminished breath sounds at the base. ABDOMEN: Soft, nontender to palpation. No rebound or guarding. EXTREMITIES: Negative for clubbing, cyanosis, 1+ edema. ____ DERMATOLOGIC: No rashes. MUSCULOSKELETAL: No joint effusions. NEUROLOGIC: No change in exam. MEDICATIONS: The patient's medications have been reviewed. LABORATORY DATA: Shows sodium 145, potassium 3.7, ____ ASSESSMENT AND PLAN: 1. Nonoliguric acute kidney injury ____ . Etiology is secondary to ____ improved. Patient ____ this may be related to underlying diuretic therapy. We will deescalate Lasix to 20 mg IV daily. 2. Otherwise, continue supportive care, renally dose all meds. Avoid nephrotoxins. 3. History of hydronephrosis, status post bilateral nephrostomy tubes. The patient developed hematu dejan of the right nephrostomy tube. Will get a renal ultrasound ____ radiology evaluation. 4. Hypernatremia. Etiology is due to ____ . Will start the patient on free water flushes. ____ . 5. Volume overload secondary to ____ . ____ therapy. Will give ____ Lasix ____ mg IV daily. Mon itor closely. 6. Ventilatory-dependent respiratory failure. Vent settings have been reviewed. ____ reviewed. ___ _ . Continue to monitor. 7. Elevated troponins. ____ Continue to monitor ____ . 8. ____ management. 9. Anemia. ____ Continue to monitor hemoglobin and hematocrit levels. 10. Dysphagia. Continue TPN. Dictated By: URIEL RAMESH/EHSAN Conf#: [id number] DID#: [id number]
--- NOTE | 2016-09-23 10:57 | CONS ---
Date/Time of Note Date/Time of Note DATE: 09/23/16 TIME: 10:53 Assessment/Plan Assessment/Plan Additional Assessment/Plan My last visit I asked family members to consider trach, she is not a candidate for PEG placement I explained the reason and that she would need to be on TPN. There were not willing to commit themselves to a decision then that meeting was Friday 09/22. Today I placed a phone call to family members asked him to return my phone call emphasized the decision soon. If they decide upon trach I do not believe there is a need for Bioethics meeting. Consultation Date/Type/Reason Admit Date/Time September 05, 2016 at 16:23 Initial Consult Date 09/06/16 Type of Consultation: ID Referring Provider: MORIAH GARRIDO 24 HR Interval Summary Free Text/Dictation HISTORY OF PRESENT ILLNESS: This is a 61-year-old lady who carries a diagnosis of cervical cancer with widespread metastasis who presented to [facility], brought in by EMT. This patient was complaining of increasing nausea, vomiting, generalized malaise, nonbilious, nonbloody diarrhea. By history, this lady was first diagnosed with cervical cancer in 2013. The entire history and physical was taken from patient's medical records and from speaking with the patient's children, son and daughter. She was initially diagnosed in 2013 with cervical cancer. Since that time, most of her care has been at [facility]. She has undergone radiation, chemo and immunotherapy. She has had at least 1 bout of sepsis syndrome when she was admitted to [facility] approximately 1 year ago prior to this hospitalization. Two months ago she started becoming weak with generalized malaise and began a precipitous downhill course with weight loss. When she presented to [facility] lactic acid level was 5.2, hemoglobin is less than 8. She has been transfused while she is here. Patient is status post nephrostomy tubes bilaterally although her children have been very helpful , part of the past medical history is incomplete. The patient is critically ill , in the intensive care unit. When I initially examined her, she was not on a ventilator and she was minimally communicative. Exam/Review of Systems Vital Signs Vitals Vital Signs Date Time Temp Pulse Resp B/P Pulse Ox O2 Delivery O2 Flow Rate FiO2 09/23/16 09:00 102 19 100 30 09/23/16 06:00 108/73 Mechanical Ventilator 09/23/16 04:00 98.4 Intake and Output 09/22/16 09/22/16 09/23/16 15:00 23:00 07:00 Intake Total 618 ml 866.165 ml 605.831 ml Output Total 800 ml 790 ml 830 ml Balance -182 ml 76.165 ml -224.169 ml Results Result Diagram: 09/20/16 0445 09/23/16 0545 Results 24 hrs Laboratory Tests Test 09/22/16 12:41 09/22/16 18:28 09/22/16 23:28 09/23/16 05:45 Bedside Glucose 150 157 161 Sodium Level 145 H Potassium Level 3.7 Chloride Level 109 Carbon Dioxide Level 28 Anion Gap 12 Blood Urea Nitrogen 44 H Creatinine 0.85 Glucose Level 158 Calcium Level 10.2 Phosphorus Level 3.7 Magnesium Level 2.1 Digoxin Level 0.9 L Test 09/23/16 05:50 Bedside Glucose 165 Medications Medications Current Medications Acetaminophen (Tylenol Tab) 650 mg Q6H PRN PO PAIN LEVEL 1-3 OR FEVER; Start at 18:30 Morphine Sulfate (morphine) 2 mg Q4H PRN IV SEVERE PAIN LEVEL 7-10 Last administered on 09/19/16 05:41; Admin Dose 2 MG; Start 09/05/16 at 18:30 Docusate Sodium (Colace) 100 mg Q12H PRN PO CONSTIPATION; Start 09/05/16 at 18: 30 Magnesium Hydroxide (Milk Of Mag) 30 ml DAILY PRN PO CONSTIPATION; Start at 18:30 Sodium Biphosphate/ Sodium Phosphate 133 ml [address] CONSTIPATION; Start 09/05/16 at 18:30 Piperacillin Sod/ Tazobactam Sod (Zosyn 2.25gm/ 50ml (Pmx)) 50 ml @ 100 mls/hr Q6 IVPB Last administered on 09/23/16 05:32; Admin Dose 100 MLS/HR; Start at 00:00 Vancomycin HCl (Vanco Iv Per Pharmacy) VANCOMYCIN PER PHARMACY NOTE XX ; Start 09/05/16 at 18:30 Hydralazine HCl (Apresoline) 10 mg Q6H PRN IV ELEVATED BLOOD PRESSURE; Start at 18:30 Nitroglycerin (Nitroglycerin (Sl Tab) 0.4 Mg) 1 tab Q5M PRN SL ANGINA; Start at 18:30 Miscellaneous Information 1 ea NOTE XX ; Start 09/05/16 at 19:00 Glucose (Glutose) 15 gm Q15M PRN PO DECREASED GLUCOSE; Start 09/05/16 at 19:00 Glucose (Glutose) 22.5 gm Q15M PRN PO DECREASED GLUCOSE; Start 09/05/16 at 19: 00 Dextrose (D50w Syringe) 25 ml Q15M PRN IV DECREASED GLUCOSE; Start 09/05/16 at 19:00 Dextrose (D50w Syringe) 50 ml Q15M PRN IV DECREASED GLUCOSE; Start 09/05/16 at 19:00 Glucagon (Glucagen) 1 mg Q15M PRN IM DECREASED GLUCOSE; Start 09/05/16 at 19:00 Glucose 15 gm 15 gm Q15M PRN BUCCAL DECREASED GLUCOSE; Start 09/05/16 at 19:00 Ondansetron HCl/ Sodium Chloride (Zofran Inj/NS) 54 ml @ 216 mls/hr Q6H PRN IV NAUSEA AND/OR VOMITING Last administered on 09/07/16 17:27; Admin Dose 216 MLS/HR; Start 09/06/16 at 10:30 Pantoprazole 40 mg 40 mg BID@06,18 IV Last administered on 09/23/16 05:32; Admin Dose 40 MG; Start 09/08/16 at 18:00 Fluconazole/ Sodium Chloride 50 ml @ 50 mls/hr Q24H IVPB Last administered on 15:57; Admin Dose 50 MLS/HR; Start 09/09/16 at 14:30 Phenylephrine HCl/ Sodium Chloride (Julio-Syneph/NS) 500 ml @ 18.75 mls/ hr TITRATE IV ; Start 09/10/16 at 10:00 Miscellaneous Information PLEASE CHANGE ALL IVPB F... DAILY XX Last administered on 09/20/16 09:42; Admin Dose 1 EA; Start 09/10/16 at 08:30 Vasopressin 60 unit/Sodium Chloride 103 ml @ 0 mls/hr Q12H IVPB ; Start at 09:00; Status Future Hold Fat Emulsion Intravenous 500 ml @ 20.833 mls/ hr Q24H IV Last administered on 09/22/16 15:57; Admin Dose 20.833 MLS/HR; Start 09/11/16 at 16:00 Norepinephrine 16 mg/Sodium Chloride 500 ml @ 0 mls/hr TITRATE IV Last administered on 09/15/16 11:53; Admin Dose 3.75 MLS/HR; Start 09/11/16 at 20:31 Fentanyl (Sublimaze) 100 ml @ 5 mls/hr TITRATE IV Last administered on 23:24; Admin Dose 10 MLS/HR; Start 09/13/16 at 07:45 Hydrocortisone (Solu-Cortef) 50 mg Q8 IV Last administered on 09/23/16 05:32; Admin Dose 50 MG; Start 09/13/16 at 14:00 Lorazepam 1 mg 1 mg Q4 PRN IV ANXIETY Last administered on 09/20/16 05:56; Admin Dose 1 MG; Start 09/14/16 at 06:30 Midazolam HCl (Versed) 50 ml @ 1 mls/hr TITRATE IV ; Start 09/14/16 at 10:30 Insulin Aspart (Novolog Insulin Pen) NOVOLOG *MILD* ALGORI... Q6 SC Last administered on 09/23/16 06:06; Admin Dose 1 UNIT; Start 09/16/16 at 00:00 Collagenase 1 applic 1 applic DAILY TOP Last administered on 09/23/16 09:47; Admin Dose 1 APPLIC; Start 09/17/16 at 09:00 Vancomycin HCl 100 ml @ 100 mls/hr Q36H IVPB Last administered on 09/23/16 08 :29; Admin Dose 100 MLS/HR; Start 09/17/16 at 08:00 Total Parenteral Nutrition (Tpn) 1,000 ml @ 40 mls/hr Q24H IV Last administered on 09/22/16 18:24; Admin Dose 40 MLS/HR; Start 09/19/16 at 16:00 Furosemide (Lasix) 20 mg DAILY IV Last administered on 09/23/16 08:29; Admin Dose 20 MG; Start 09/23/16 at 09:00 MORIAH GARRIDO Sep 23, 2016 10:57
--- NOTE | 2016-09-23 11:18 | CONS ---
Date/Time of Note Date/Time of Note DATE: 09/23/16 TIME: 11:15 Assessment/Plan Assessment/Plan Additional Assessment/Plan Ventilator settings; AC of 16, tidal volume 400, PEEP of 5, 30% FiO2. Patient currently on fentanyl drip at 25 mics per hour. Assessment recommendations; 1. Patient admitted for severe sepsis from bowel perforation. Patient deemed to high surgical risk for laparotomy. 2. Widely metastatic cervical cancer. 3. History of bilateral nephrostomies. 4. Bleeding from nephrostomy tube on the right side. Etiology is unclear. 5. Anemia. 6. Thrombocytopenia. 7. Subclavian vein thrombosis. Including any anticoagulation due to bleeding diathesis. 8. Failure to be weaned from ventilator. Continue current supportive care. Ultrasound of the kidney is currently being done. Prognosis remains dismal. 35 minutes of critical care time was spent evaluating the patient. Consultation Date/Type/Reason Admit Date/Time September 05, 2016 at 16:23 Initial Consult Date 09/06/16 Type of Consultation: Pulmonary/critical care Referring Provider: MORIAH GARRIDO 24 HR Interval Summary Free Text/Dictation Patient condition remains critical. Has been unable to tolerate any weaning from ventilator. Patient despite being on fentanyl drip is readily arousable. And follows simple commands. Has remained hemodynamically stable. General exam; elderly woman, orally intubated, currently in no distress. Exam/Review of Systems Vital Signs Vitals Vital Signs Date Time Temp Pulse Resp B/P Pulse Ox O2 Delivery O2 Flow Rate FiO2 09/23/16 09:00 102 19 100 30 09/23/16 06:00 108/73 Mechanical Ventilator 09/23/16 04:00 98.4 Intake and Output 09/22/16 09/22/16 09/23/16 15:00 23:00 07:00 Intake Total 618 ml 866.165 ml 605.831 ml Output Total 800 ml 790 ml 830 ml Balance -182 ml 76.165 ml -224.169 ml Exam HEENT exam is; supple neck, no JVD. No lymphadenopathy. Midline trachea. No thyromegaly. Orally intubated. Patient has fair dentition. Pupils are midsize and reactive to light. Chest examination; diminished but clear vessel. S1-S2 audible, no murmurs. Regular rhythm. Tachycardic. Abdomen examination; protuberant. Bowel sounds are absent. Extremity exam; 3+ anasarca. TUTOR COORDINATOR examination; patient is awake and follows simple commands. Results Result Diagram: 09/20/16 0445 09/23/16 0545 Results 24 hrs Laboratory Tests Test 09/22/16 12:41 09/22/16 18:28 09/22/16 23:28 09/23/16 05:45 Bedside Glucose 150 157 161 Sodium Level 145 H Potassium Level 3.7 Chloride Level 109 Carbon Dioxide Level 28 Anion Gap 12 Blood Urea Nitrogen 44 H Creatinine 0.85 Glucose Level 158 Calcium Level 10.2 Phosphorus Level 3.7 Magnesium Level 2.1 Digoxin Level 0.9 L Test 09/23/16 05:50 Bedside Glucose 165 Medications Medications Current Medications Acetaminophen (Tylenol Tab) 650 mg Q6H PRN PO PAIN LEVEL 1-3 OR FEVER; Start at 18:30 Morphine Sulfate (morphine) 2 mg Q4H PRN IV SEVERE PAIN LEVEL 7-10 Last administered on 09/19/16 05:41; Admin Dose 2 MG; Start 09/05/16 at 18:30 Docusate Sodium (Colace) 100 mg Q12H PRN PO CONSTIPATION; Start 09/05/16 at 18: 30 Magnesium Hydroxide (Milk Of Mag) 30 ml DAILY PRN PO CONSTIPATION; Start at 18:30 Sodium Biphosphate/ Sodium Phosphate 133 ml 133 ml DAILY PRN [place] CONSTIPATION; Start 09/05/16 at 18:30 Piperacillin Sod/ Tazobactam Sod (Zosyn 2.25gm/ 50ml (Pmx)) 50 ml @ 100 mls/hr Q6 IVPB Last administered on 09/23/16 05:32; Admin Dose 100 MLS/HR; Start at 00:00 Vancomycin HCl (Vanco Iv Per Pharmacy) VANCOMYCIN PER PHARMACY NOTE XX ; Start 09/05/16 at 18:30 Hydralazine HCl (Apresoline) 10 mg Q6H PRN IV ELEVATED BLOOD PRESSURE; Start at 18:30 Nitroglycerin (Nitroglycerin (Sl Tab) 0.4 Mg) 1 tab Q5M PRN SL ANGINA; Start at 18:30 Miscellaneous Information 1 ea NOTE XX ; Start 09/05/16 at 19:00 Glucose (Glutose) 15 gm Q15M PRN PO DECREASED GLUCOSE; Start 09/05/16 at 19:00 Glucose (Glutose) 22.5 gm Q15M PRN PO DECREASED GLUCOSE; Start 09/05/16 at 19: 00 Dextrose (D50w Syringe) 25 ml Q15M PRN IV DECREASED GLUCOSE; Start 09/05/16 at 19:00 Dextrose (D50w Syringe) 50 ml Q15M PRN IV DECREASED GLUCOSE; Start 09/05/16 at 19:00 Glucagon (Glucagen) 1 mg Q15M PRN IM DECREASED GLUCOSE; Start 09/05/16 at 19:00 Glucose 15 gm 15 gm Q15M PRN BUCCAL DECREASED GLUCOSE; Start 09/05/16 at 19:00 Ondansetron HCl/ Sodium Chloride (Zofran Inj/NS) 54 ml @ 216 mls/hr Q6H PRN IV NAUSEA AND/OR VOMITING Last administered on 09/07/16 17:27; Admin Dose 216 MLS/HR; Start 09/06/16 at 10:30 Pantoprazole 40 mg 40 mg BID@06,18 IV Last administered on 09/23/16 05:32; Admin Dose 40 MG; Start 09/08/16 at 18:00 Fluconazole/ Sodium Chloride 50 ml @ 50 mls/hr Q24H IVPB Last administered on 15:57; Admin Dose 50 MLS/HR; Start 09/09/16 at 14:30 Phenylephrine HCl/ Sodium Chloride (Julio-Syneph/NS) 500 ml @ 18.75 mls/ hr TITRATE IV ; Start 09/10/16 at 10:00 Miscellaneous Information PLEASE CHANGE ALL IVPB F... DAILY XX Last administered on 09/20/16 09:42; Admin Dose 1 EA; Start 09/10/16 at 08:30 Vasopressin 60 unit/Sodium Chloride 103 ml @ 0 mls/hr Q12H IVPB ; Start at 09:00; Status Future Hold Fat Emulsion Intravenous 500 ml @ 20.833 mls/ hr Q24H IV Last administered on 09/22/16 15:57; Admin Dose 20.833 MLS/HR; Start 09/11/16 at 16:00 Norepinephrine 16 mg/Sodium Chloride 500 ml @ 0 mls/hr TITRATE IV Last administered on 09/15/16 11:53; Admin Dose 3.75 MLS/HR; Start 09/11/16 at 20:31 Fentanyl (Sublimaze) 100 ml @ 5 mls/hr TITRATE IV Last administered on 23:24; Admin Dose 10 MLS/HR; Start 09/13/16 at 07:45 Hydrocortisone (Solu-Cortef) 50 mg Q8 IV Last administered on 09/23/16 05:32; Admin Dose 50 MG; Start 09/13/16 at 14:00 Lorazepam 1 mg 1 mg Q4 PRN IV ANXIETY Last administered on 09/20/16 05:56; Admin Dose 1 MG; Start 09/14/16 at 06:30 Midazolam HCl (Versed) 50 ml @ 1 mls/hr TITRATE IV ; Start 09/14/16 at 10:30 Insulin Aspart (Novolog Insulin Pen) NOVOLOG *MILD* ALGORI... Q6 SC Last administered on 09/23/16 06:06; Admin Dose 1 UNIT; Start 09/16/16 at 00:00 Collagenase 1 applic 1 applic DAILY TOP Last administered on 09/23/16 09:47; Admin Dose 1 APPLIC; Start 09/17/16 at 09:00 Vancomycin HCl 100 ml @ 100 mls/hr Q36H IVPB Last administered on 09/23/16 08 :29; Admin Dose 100 MLS/HR; Start 09/17/16 at 08:00 Total Parenteral Nutrition (Tpn) 1,000 ml @ 40 mls/hr Q24H IV Last administered on 09/22/16 18:24; Admin Dose 40 MLS/HR; Start 09/19/16 at 16:00 Furosemide (Lasix) 20 mg DAILY IV Last administered on 09/23/16 08:29; Admin Dose 20 MG; Start 09/23/16 at 09:00 SKYLER ESTEVES 13, 2017 11:18
--- NOTE | 2016-09-23 12:00 | CONS ---
Date/Time of Note Date/Time of Note DATE: 09/23/16 TIME: 11:58 Assessment/Plan Assessment/Plan Chief Complaint/Hosp Course SUBJECTIVE: + rectal bleeding, awake, looks comfortable, no fevers INDWELLINGS: Endotracheal tube, NG tube, PICC line, placed 09/11/2016, right chest Port-A-Cath, B nephrostomies. ANTIMICROBIALS: 1. IV vancomycin. 2. Fluconazole. 3. Zosyn. PHYSICAL EXAMINATION: GENERAL: Chronically ill-appearing, elderly woman, in no distress. HEENT: Head atraumatic, normocephalic. Sclerae anicteric. Buccal mucosa dry. NECK: Supple, trachea midline. CHEST: Chest rise is symmetrical. Breath sounds diminished to the bases. HEART: S1, S2. ABDOMEN: Soft, bowel tones present. Abdomen distended. Bowel tones hypoactive. EXTREMITIES: With bilateral edema. ASSESSMENT: 1. S/p sepsis with shock and multisystem organ failure. 2. Large pelvic mass/ metastatic cervical cancer 3. Proximal sigmoid colon obstruction with perforation. 4. Urinary tract infection, per urinalysis. 5. Acute renal and respiratory failure. 6. LUE DVT with PICC present PLAN: Remains hemodynamically stable, completed abx, will dc them and observe DW Dr Niraj PEREZ staff Problems: Consultation Date/Type/Reason Admit Date/Time September 05, 2016 at 16:23 Initial Consult Date 09/06/16 Type of Consultation: ID Referring Provider: MORIAH GARRIDO Exam/Review of Systems Vital Signs Vitals Vital Signs Date Time Temp Pulse Resp B/P Pulse Ox O2 Delivery O2 Flow Rate FiO2 09/23/16 09:00 102 19 100 30 09/23/16 06:00 108/73 Mechanical Ventilator 09/23/16 04:00 98.4 Intake and Output 09/22/16 09/22/16 09/23/16 15:00 23:00 07:00 Intake Total 618 ml 866.165 ml 605.831 ml Output Total 800 ml 790 ml 830 ml Balance -182 ml 76.165 ml -224.169 ml Results Result Diagram: 09/20/16 0445 09/23/16 0545 Results 24 hrs Laboratory Tests Test 09/22/16 12:41 09/22/16 18:28 09/22/16 23:28 09/23/16 05:45 Bedside Glucose 150 157 161 Sodium Level 145 H Potassium Level 3.7 Chloride Level 109 Carbon Dioxide Level 28 Anion Gap 12 Blood Urea Nitrogen 44 H Creatinine 0.85 Glucose Level 158 Calcium Level 10.2 Phosphorus Level 3.7 Magnesium Level 2.1 Digoxin Level 0.9 L Test 09/23/16 05:50 Bedside Glucose 165 Medications Medications Current Medications Acetaminophen (Tylenol Tab) 650 mg Q6H PRN PO PAIN LEVEL 1-3 OR FEVER; Start at 18:30 Morphine Sulfate (morphine) 2 mg Q4H PRN IV SEVERE PAIN LEVEL 7-10 Last administered on 09/19/16 05:41; Admin Dose 2 MG; Start 09/05/16 at 18:30 Docusate Sodium (Colace) 100 mg Q12H PRN PO CONSTIPATION; Start 09/05/16 at 18: 30 Magnesium Hydroxide (Milk Of Mag) 30 ml DAILY PRN PO CONSTIPATION; Start at 18:30 Sodium Biphosphate/ Sodium Phosphate 133 ml 133 ml DAILY PRN [place] CONSTIPATION; Start 09/05/16 at 18:30 Piperacillin Sod/ Tazobactam Sod (Zosyn 2.25gm/ 50ml (Pmx)) 50 ml @ 100 mls/hr Q6 IVPB Last administered on 09/23/16 05:32; Admin Dose 100 MLS/HR; Start at 00:00 Vancomycin HCl (Vanco Iv Per Pharmacy) VANCOMYCIN PER PHARMACY NOTE XX ; Start 09/05/16 at 18:30 Hydralazine HCl (Apresoline) 10 mg Q6H PRN IV ELEVATED BLOOD PRESSURE; Start at 18:30 Nitroglycerin (Nitroglycerin (Sl Tab) 0.4 Mg) 1 tab Q5M PRN SL ANGINA; Start at 18:30 Miscellaneous Information 1 ea NOTE XX ; Start 09/05/16 at 19:00 Glucose (Glutose) 15 gm Q15M PRN PO DECREASED GLUCOSE; Start 09/05/16 at 19:00 Glucose (Glutose) 22.5 gm Q15M PRN PO DECREASED GLUCOSE; Start 09/05/16 at 19: 00 Dextrose (D50w Syringe) 25 ml Q15M PRN IV DECREASED GLUCOSE; Start 09/05/16 at 19:00 Dextrose (D50w Syringe) 50 ml Q15M PRN IV DECREASED GLUCOSE; Start 09/05/16 at 19:00 Glucagon (Glucagen) 1 mg Q15M PRN IM DECREASED GLUCOSE; Start 09/05/16 at 19:00 Glucose 15 gm 15 gm Q15M PRN BUCCAL DECREASED GLUCOSE; Start 09/05/16 at 19:00 Ondansetron HCl/ Sodium Chloride (Zofran Inj/NS) 54 ml @ 216 mls/hr Q6H PRN IV NAUSEA AND/OR VOMITING Last administered on 09/07/16 17:27; Admin Dose 216 MLS/HR; Start 09/06/16 at 10:30 Pantoprazole 40 mg 40 mg BID@06,18 IV Last administered on 09/23/16 05:32; Admin Dose 40 MG; Start 09/08/16 at 18:00 Fluconazole/ Sodium Chloride 50 ml @ 50 mls/hr Q24H IVPB Last administered on 15:57; Admin Dose 50 MLS/HR; Start 09/09/16 at 14:30 Phenylephrine HCl/ Sodium Chloride (Julio-Syneph/NS) 500 ml @ 18.75 mls/ hr TITRATE IV ; Start 09/10/16 at 10:00 Miscellaneous Information PLEASE CHANGE ALL IVPB F... DAILY XX Last administered on 09/20/16 09:42; Admin Dose 1 EA; Start 09/10/16 at 08:30 Vasopressin 60 unit/Sodium Chloride 103 ml @ 0 mls/hr Q12H IVPB ; Start at 09:00; Status Future Hold Fat Emulsion Intravenous 500 ml @ 20.833 mls/ hr Q24H IV Last administered on 09/22/16 15:57; Admin Dose 20.833 MLS/HR; Start 09/11/16 at 16:00 Norepinephrine 16 mg/Sodium Chloride 500 ml @ 0 mls/hr TITRATE IV Last administered on 09/15/16 11:53; Admin Dose 3.75 MLS/HR; Start 09/11/16 at 20:31 Fentanyl (Sublimaze) 100 ml @ 5 mls/hr TITRATE IV Last administered on 23:24; Admin Dose 10 MLS/HR; Start 09/13/16 at 07:45 Hydrocortisone (Solu-Cortef) 50 mg Q8 IV Last administered on 09/23/16 05:32; Admin Dose 50 MG; Start 09/13/16 at 14:00 Lorazepam 1 mg 1 mg Q4 PRN IV ANXIETY Last administered on 09/20/16 05:56; Admin Dose 1 MG; Start 09/14/16 at 06:30 Midazolam HCl (Versed) 50 ml @ 1 mls/hr TITRATE IV ; Start 09/14/16 at 10:30 Insulin Aspart (Novolog Insulin Pen) NOVOLOG *MILD* ALGORI... Q6 SC Last administered on 09/23/16 06:06; Admin Dose 1 UNIT; Start 09/16/16 at 00:00 Collagenase 1 applic 1 applic DAILY TOP Last administered on 09/23/16 09:47; Admin Dose 1 APPLIC; Start 09/17/16 at 09:00 Vancomycin HCl 100 ml @ 100 mls/hr Q36H IVPB Last administered on 09/23/16 08 :29; Admin Dose 100 MLS/HR; Start 09/17/16 at 08:00 Total Parenteral Nutrition (Tpn) 1,000 ml @ 40 mls/hr Q24H IV Last administered on 09/22/16 18:24; Admin Dose 40 MLS/HR; Start 09/19/16 at 16:00 Furosemide (Lasix) 20 mg DAILY IV Last administered on 09/23/16 08:29; Admin Dose 20 MG; Start 09/23/16 at 09:00 BIN MITTAL NP Sep 23, 2016 12:00 BIN MITTAL NP Sep 23, 2016 12:00
--- NOTE | 2016-09-23 13:19 | RADRPT ---
PROCEDURE: Renal US. CLINICAL INDICATION: Hematuria. TECHNIQUE: Multiple sonographic images of the kidneys and urinary bladder were obtained. The imag es were reviewed on a PACS workstation. COMPARISON: CT scan of the abdomen and pelvis dated 09/14/2016. FINDINGS: The right kidney measures 7.0 cm. The left kidney measures 8.1 cm. There is a hypoechoic mass superiorly in the right kidney measuring 1.9 x 2.5 x 2.4 cm. There is no other renal mass. There is mild bilateral hydronephrosis. There is no renal calculus. A shadowing structure in the lower right kidney appears to be a nephros meka tube. Renal parenchymal thickness is normal bilaterally. Echogenicity is normal bilaterally. The perirenal regions are normal with no fluid collection or mass. The urinary bladder is empty. IMPRESSION: 1. Hypoechoic mass superiorly in the right kidney measuring up to 2.5 cm. 2. Mild bilateral hydronephrosis. 3. Nephrostomy tube visualized in the lower right kidney. 3. Empty urinary bladder. RPTAT: QQ .Moises Hadley MD, MD Date Time Electronically viewed and signed by .Moises Hadley MD, on 09/23/2016 13:19 .R/
--- NOTE | 2016-09-23 14:44 | PN ---
DATE: 09/23/2016 CARDIOLOGY FOLLOWUP PROGRESS NOTE SUBJECTIVE: Discussed with the staff. Rhythm strip was reviewed. The patient remains in sinus rhy thm, sinus tachycardia. Still on n.p.o. and intubated on the vent. Blood pressure on the low side, but is stable. No report of chest pain or pressure to me. MEDICATIONS: Reviewed. PHYSICAL EXAMINATION: VITAL SIGNS: Temperature 98.4, heart rate of 115, blood pressure 88/59, respiratory rate of 25, sat urating 100%. HEENT: Normocephalic, atraumatic. Status post intubation on the vent. CARDIOVASCULAR: Tachycardic. PULMONARY: Anteriorly with mild rhonchi, diffuse. GASTROINTESTINAL: Soft, nontender. No rebound. EXTREMITIES: With diffuse lower extremity edema. NEUROLOGIC: Opens her eyes, responds appropriately. PSYCHIATRIC: Appears to be calm. LABORATORY: Digoxin level is 0.9. Sodium 145, potassium 3.7, BUN of 44, creatinine 0.85, glucose o f 158, mag is 2.1. ASSESSMENT AND PLAN: 1. Septic shock. 2. Perforated colon post colonoscopy. 3. Severe cardiomyopathy. 4. Hypoxemic hypercapneic respiratory failure status post intubation, unable to wean off. 5. Cervical cancer with metastasis. 6. Malnutrition, low albumin level. 7. Tachycardia secondary to above. RECOMMENDATIONS: We will continue with supportive care. Code status still FULL CODE, has been disc ussed, palliative care has been involved already. Diuresis will be continued as tolerated, TPN will be continued with nutritional support. The patient is unable to tolerate any p.o. medications. Co ntinue with the ICU care for now. Dictated By: JIM ABDI MD AV/EHSAN Conf#: [id number] DID#: [id number] CC: URIEL TERRAZAS DO; VEENA DEL ANGEL MD;*EndCC*
[2016-09-23] MEDS: FAT EMULSION 20% 500 ML IV SCH (17:25)
[2016-09-23] MEDS: FENTAnyl (DRIP) 1000 mcg/100mL 100 ML IV SCH (17:42)
--- NOTE | 2016-09-23 18:02 | PN ---
Date/Time of Note Date/Time of Note DATE: 09/23/16 TIME: 18:00 Assessment/Plan VTE Prophylaxis VTE Prophylaxis Intervention: contraindicated Lines/Catheters IV Catheter Type (from Nrsg): PICC Line Central line still needed: Yes Urinary Cath still in place: No Assessment/Plan Assessment/Plan Swollen left arm DVT Respiratory failure Anemia/no overt GI bleeding Rule out intra-abdominal bleeding versus hemolysis versus GI bleeding with slow transit Post colonoscopy perforated viscus * Large pelvic mass invading colon wall site of perforation * Contrast leakage to pelvic area * ?Contained perforation as no evidence of generalized peritonitis Sepsis Metastatic cervical CA/Adrenal/brain History of cervical cancer S/P nephrostomy tube bilateral EF 20% Plan continue present management Case was discussed with Dr Durant Subjective 24 Hr Interval Summary Free Text/Dictation * Course reviewed with RN * Patient seen and examined * no hematochezia Exam/Review of Systems Vital Signs Vitals Vital Signs Date Time Temp Pulse Resp B/P Pulse Ox O2 Delivery O2 Flow Rate FiO2 09/23/16 17:20 106 23 100 30 09/23/16 14:00 113/78 Mechanical Ventilator 09/23/16 12:00 98.3 Intake and Output 09/22/16 09/22/16 09/23/16 15:00 23:00 07:00 Intake Total 618 ml 866.165 ml 671.831 ml Output Total 800 ml 790 ml 830 ml Balance -182 ml 76.165 ml -158.169 ml Exam Constitutional: frail ENMT: intubated, mucosa pink and moist Neck: non-tender, supple Respiratory: diminished breath sounds, normal air movement Cardiovascular: nl pulses, regular rate and rhythm Gastrointestinal: distended, firm Genitourinary - Female: other (nephrostomy tube) Musculoskeletal: muscle weakness, swelling Extremities: edema Results Result Diagram: 09/20/16 0445 09/23/16 0545 Results 24 hrs Laboratory Tests Test 09/22/16 18:28 09/22/16 23:28 09/23/16 05:45 09/23/16 05:50 Bedside Glucose 157 161 165 Sodium Level 145 H Potassium Level 3.7 Chloride Level 109 Carbon Dioxide Level 28 Anion Gap 12 Blood Urea Nitrogen 44 H Creatinine 0.85 Glucose Level 158 Calcium Level 10.2 Phosphorus Level 3.7 Magnesium Level 2.1 Digoxin Level 0.9 L Test 09/23/16 12:15 09/23/16 17:24 Bedside Glucose 160 158 Medications Medications Current Medications Acetaminophen (Tylenol Tab) 650 mg Q6H PRN PO PAIN LEVEL 1-3 OR FEVER; Start at 18:30 Morphine Sulfate (morphine) 2 mg Q4H PRN IV SEVERE PAIN LEVEL 7-10 Last administered on 09/19/16 05:41; Admin Dose 2 MG; Start 09/05/16 at 18:30 Docusate Sodium (Colace) 100 mg Q12H PRN PO CONSTIPATION; Start 09/05/16 at 18: 30 Magnesium Hydroxide (Milk Of Mag) 30 ml DAILY PRN PO CONSTIPATION; Start at 18:30 Sodium Biphosphate/ Sodium Phosphate (Fleet Enema) 133 ml DAILY PRN SC CONSTIPATION; Start 09/05/16 at 18:30 Hydralazine HCl (Apresoline) 10 mg Q6H PRN IV ELEVATED BLOOD PRESSURE; Start at 18:30 Nitroglycerin (Nitroglycerin (Sl Tab) 0.4 Mg) 1 tab Q5M PRN SL ANGINA; Start at 18:30 Miscellaneous Information 1 ea NOTE XX ; Start 09/05/16 at 19:00 Glucose (Glutose) 15 gm Q15M PRN PO DECREASED GLUCOSE; Start 09/05/16 at 19:00 Glucose (Glutose) 22.5 gm Q15M PRN PO DECREASED GLUCOSE; Start 09/05/16 at 19: 00 Dextrose (D50w Syringe) 25 ml Q15M PRN IV DECREASED GLUCOSE; Start 09/05/16 at 19:00 Dextrose (D50w Syringe) 50 ml Q15M PRN IV DECREASED GLUCOSE; Start 09/05/16 at 19:00 Glucagon (Glucagen) 1 mg Q15M PRN IM DECREASED GLUCOSE; Start 09/05/16 at 19:00 Glucose 15 gm 15 gm Q15M PRN BUCCAL DECREASED GLUCOSE; Start 09/05/16 at 19:00 Ondansetron HCl/ Sodium Chloride (Zofran Inj/NS) 54 ml @ 216 mls/hr Q6H PRN IV NAUSEA AND/OR VOMITING Last administered on 09/07/16 17:27; Admin Dose 216 MLS/HR; Start 09/06/16 at 10:30 Pantoprazole 40 mg 40 mg BID@06,18 IV Last administered on 09/23/16 17:25; Admin Dose 40 MG; Start 09/08/16 at 18:00 Phenylephrine HCl/ Sodium Chloride (Julio-Syneph/NS) 500 ml @ 18.75 mls/ hr TITRATE IV ; Start 09/10/16 at 10:00 Miscellaneous Information PLEASE CHANGE ALL IVPB F... DAILY XX Last administered on 09/23/16 09:00; Admin Dose 1 EA; Start 09/10/16 at 08:30 Vasopressin 60 unit/Sodium Chloride 103 ml @ 0 mls/hr Q12H IVPB ; Start at 09:00; Status Future Hold Fat Emulsion Intravenous 500 ml @ 20.833 mls/ hr Q24H IV Last administered on 09/23/16 17:25; Admin Dose 20.833 MLS/HR; Start 09/11/16 at 16:00 Norepinephrine 16 mg/Sodium Chloride 500 ml @ 0 mls/hr TITRATE IV Last administered on 09/15/16 11:53; Admin Dose 3.75 MLS/HR; Start 09/11/16 at 20:31 Fentanyl (Sublimaze) 100 ml @ 5 mls/hr TITRATE IV Last administered on 17:42; Admin Dose 2.5 MLS/HR; Start 09/13/16 at 07:45 Hydrocortisone (Solu-Cortef) 50 mg Q8 IV Last administered on 09/23/16 15:06; Admin Dose 50 MG; Start 09/13/16 at 14:00 Lorazepam 1 mg 1 mg Q4 PRN IV ANXIETY Last administered on 09/20/16 05:56; Admin Dose 1 MG; Start 09/14/16 at 06:30 Midazolam HCl (Versed) 50 ml @ 1 mls/hr TITRATE IV ; Start 09/14/16 at 10:30 Insulin Aspart (Novolog Insulin Pen) NOVOLOG *MILD* ALGORI... Q6 SC Last administered on 09/23/16 17:26; Admin Dose 1 UNIT; Start 09/16/16 at 00:00 Collagenase 1 applic 1 applic DAILY TOP Last administered on 09/23/16 09:47; Admin Dose 1 APPLIC; Start 09/17/16 at 09:00 Total Parenteral Nutrition (Tpn) 1,000 ml @ 40 mls/hr Q24H IV Last administered on 09/22/16 18:24; Admin Dose 40 MLS/HR; Start 09/19/16 at 16:00 Furosemide (Lasix) 20 mg DAILY IV Last administered on 09/23/16 08:29; Admin Dose 20 MG; Start 09/23/16 at 09:00 [place] DE LEON NP Sep 23, 2016 18:02
--- NOTE | 2016-09-23 19:45 | CONS ---
Date/Time of Note Date/Time of Note DATE: 09/23/16 TIME: 19:42 Assessment/Plan Assessment/Plan Chief Complaint/Hosp Course Bilateral nephrostomy tubes both are functioning well I reviewed the ultrasound which shows and confirms adequate function At the time being there is no bleeding. Generally bleeding is not unusual on periodic occasions with nephrostomy tubes. The tube on the right side is due for change as has been around 3 months the tube on the left side is not. As the patient is end-stage I left the decision up to the family if they want the nephrostomy tube change on the right at this time. At this point they are indicating that they would like a change and if so that can be ordered through interventional radiology. This probably should be done when she is more stable out of the intensive care unit. Please contact interventional radiology directly. There is no urologic role in this patient Problems: Consultation Date/Type/Reason Admit Date/Time September 05, 2016 at 16:23 Date of Consultation: Sep 23, 2016 Type of Consultation: Urology Reason for Consultation Nephrostomy tube bleeding Hx of Present Illness Thank you for request for evaluation This is an unfortunate woman with advanced end-stage cervical metastatic disease. Patient is admitted for what appears to be a possible septic episode. She has bilateral nephrostomy tubes and one of them was noted to be blood- tinged. I was asked to evaluate the patient In discussion with the family members she has had nephrostomy tubes for a long time generally getting changed every 3 months. Constitutional: disoriented, poor po Eyes: no complaints ENT: no complaints Respiratory: shortness of breath Cardiovascular: no complaints Gastrointestinal: decreased appetite, nausea Genitourinary: other Musculoskeletal: bone/joint pain Skin: no complaints Neurologic: no complaints Psychological: anxiety, depression Past Medical History Medical History: other (cervical cancer,bowel obstruction,brain tumor) Past Surgical History Past Surgical Hx: other (neprhostomy tube bilateral,brain surgery) Social History Alcohol Use: rarely Smoking Status: Never smoker Exam/Review of Systems Vital Signs Vitals Vital Signs Date Time Temp Pulse Resp B/P Pulse Ox O2 Delivery O2 Flow Rate FiO2 09/23/16 18:00 110 23 113/71 100 Mechanical Ventilator 09/23/16 17:20 30 09/23/16 16:00 98.4 Intake and Output 09/22/16 09/22/16 09/23/16 15:00 23:00 07:00 Intake Total 618 ml 866.165 ml 671.831 ml Output Total 800 ml 790 ml 830 ml Balance -182 ml 76.165 ml -158.169 ml Exam Constitutional: frail, non-verbal Gastrointestinal: other (Bilateral nephrostomy tubes neither of which are bloody) Results Result Diagram: 09/20/16 0445 09/23/16 0545 Results 24 hrs Laboratory Tests Test 09/22/16 23:28 09/23/16 05:45 09/23/16 05:50 09/23/16 12:15 Bedside Glucose 161 165 160 Sodium Level 145 H Potassium Level 3.7 Chloride Level 109 Carbon Dioxide Level 28 Anion Gap 12 Blood Urea Nitrogen 44 H Creatinine 0.85 Glucose Level 158 Calcium Level 10.2 Phosphorus Level 3.7 Magnesium Level 2.1 Digoxin Level 0.9 L Test 09/23/16 17:24 Bedside Glucose 158 Medications Medications Current Medications Acetaminophen (Tylenol Tab) 650 mg Q6H PRN PO PAIN LEVEL 1-3 OR FEVER; Start at 18:30 Morphine Sulfate (morphine) 2 mg Q4H PRN IV SEVERE PAIN LEVEL 7-10 Last administered on 09/19/16t 05:41; Admin Dose 2 MG; Start 09/05/16 at 18:30 Docusate Sodium (Colace) 100 mg Q12H PRN PO CONSTIPATION; Start 09/05/16 at 18: 30 Magnesium Hydroxide (Milk Of Mag) 30 ml DAILY PRN PO CONSTIPATION; Start at 18:30 Sodium Biphosphate/ Sodium Phosphate (Fleet Enema) 133 ml DAILY PRN [place] CONSTIPATION; Start 09/05/16 at 18:30 Hydralazine HCl (Apresoline) 10 mg Q6H PRN IV ELEVATED BLOOD PRESSURE; Start at 18:30 Nitroglycerin (Nitroglycerin (Sl Tab) 0.4 Mg) 1 tab Q5M PRN SL ANGINA; Start at 18:30 Miscellaneous Information 1 ea NOTE XX ; Start 09/05/16 at 19:00 Glucose (Glutose) 15 gm Q15M PRN PO DECREASED GLUCOSE; Start 09/05/16 at 19:00 Glucose (Glutose) 22.5 gm Q15M PRN PO DECREASED GLUCOSE; Start 09/05/16 at 19: 00 Dextrose (D50w Syringe) 25 ml Q15M PRN IV DECREASED GLUCOSE; Start 09/05/16 at 19:00 Dextrose (D50w Syringe) 50 ml Q15M PRN IV DECREASED GLUCOSE; Start 09/05/16 at 19:00 Glucagon (Glucagen) 1 mg Q15M PRN IM DECREASED GLUCOSE; Start 09/05/16 at 19:00 Glucose 15 gm 15 gm Q15M PRN BUCCAL DECREASED GLUCOSE; Start 09/05/16 at 19:00 Ondansetron HCl/ Sodium Chloride (Zofran Inj/NS) 54 ml @ 216 mls/hr Q6H PRN IV NAUSEA AND/OR VOMITING Last administered on 09/07/16 17:27; Admin Dose 216 MLS/HR; Start 09/06/16 at 10:30 Pantoprazole 40 mg 40 mg BID@06,18 IV Last administered on 09/23/16 17:25; Admin Dose 40 MG; Start 09/08/16 at 18:00 Phenylephrine HCl/ Sodium Chloride (Julio-Syneph/NS) 500 ml @ 18.75 mls/ hr TITRATE IV ; Start 09/10/16 at 10:00 Miscellaneous Information PLEASE CHANGE ALL IVPB F... DAILY XX Last administered on 09/23/16 09:00; Admin Dose 1 EA; Start 09/10/16 at 08:30 Vasopressin 60 unit/Sodium Chloride 103 ml @ 0 mls/hr Q12H IVPB ; Start at 09:00; Status Future Hold Fat Emulsion Intravenous 500 ml @ 20.833 mls/ hr Q24H IV Last administered on 09/23/16 17:25; Admin Dose 20.833 MLS/HR; Start 09/11/16 at 16:00 Norepinephrine 16 mg/Sodium Chloride 500 ml @ 0 mls/hr TITRATE IV Last administered on 09/15/16 11:53; Admin Dose 3.75 MLS/HR; Start 09/11/16 at 20:31 Fentanyl (Sublimaze) 100 ml @ 5 mls/hr TITRATE IV Last administered on 17:42; Admin Dose 2.5 MLS/HR; Start 09/13/16 at 07:45 Hydrocortisone (Solu-Cortef) 50 mg Q8 IV Last administered on 09/23/16 15:06; Admin Dose 50 MG; Start 09/13/16 at 14:00 Lorazepam 1 mg 1 mg Q4 PRN IV ANXIETY Last administered on 09/20/16 05:56; Admin Dose 1 MG; Start 09/14/16 at 06:30 Midazolam HCl (Versed) 50 ml @ 1 mls/hr TITRATE IV ; Start 09/14/16 at 10:30 Insulin Aspart (Novolog Insulin Pen) NOVOLOG *MILD* ALGORI... Q6 SC Last administered on 09/23/16 17:26; Admin Dose 1 UNIT; Start 09/16/16 at 00:00 Collagenase 1 applic 1 applic DAILY TOP Last administered on 09/23/16 09:47; Admin Dose 1 APPLIC; Start 09/17/16 at 09:00 Total Parenteral Nutrition (Tpn) 1,000 ml @ 40 mls/hr Q24H IV Last administered on 09/22/16 18:24; Admin Dose 40 MLS/HR; Start 09/19/16 at 16:00 Furosemide (Lasix) 20 mg DAILY IV Last administered on 09/23/16 08:29; Admin Dose 20 MG; Start 09/23/16 at 09:00 GLEN MONDRAGON MD Sep 23, 2016 19:45
[2016-09-23] MEDS: TPN 1,000 ML IV SCH (19:57)
[2016-09-24] VITALS (29 sets, daily range): BP systolic 101–129; BP diastolic 67–92; PULSE 106–124; RESP 14–29
[2016-09-24] MEDS: HYDROCORTISONE 100 MG INJ IV SCH ×3 (05:36→22:14)
[2016-09-24] MEDS: PANTOPRAZOLE 40 MG INJ IV SCH ×2 (05:36→17:15)
[2016-09-24] MEDS: INSULIN ASPART [NOVOLOG] 3 ML PEN SC SCH ×4 (05:37→17:17)
[2016-09-24 06:25] LABS: ADD SCAN DIFF NO
[2016-09-24 06:32] LABS: ABNORMAL IP MESSAGE 1; HEMATOCRIT 22.9 % (37.0-47.0); HEMOGLOBIN 7.3 g/dl (12.0-16.0); MEAN CORPUSCULAR HEMOGLOBIN 31.3 pg (29.0-33.0); MEAN CORPUSCULAR HGB CONC 31.9 g/dl (32.0-37.0); MEAN CORPUSCULAR VOLUME 98.3 fl (82.0-101.0); MEAN PLATELET VOLUME 13.7 fl (7.4-10.4); PLATELET COUNT 89 10^3/UL (140-415); RED BLOOD COUNT 2.33 10^6/ul (4.20-5.40); WHITE BLOOD COUNT 15.5 10^3/ul (4.8-10.8)
[2016-09-24 06:59] LABS: ALBUMIN 2.6 g/dl (3.3-4.9); ALBUMIN/GLOBULIN RATIO 1.23; BILIRUBIN,DIRECT 0.1 mg/dl (0.00-0.20); BILIRUBIN,INDIRECT 0.2 mg/dl (0-1.1); BILIRUBIN,TOTAL 0.3 mg/dl (0.2-1.3); CALCIUM 10.1 mg/dl (8.4-10.2); CREATININE 0.88 mg/dl (0.44-1.00); POTASSIUM 3.5 mmol/L (3.5-5.1); TOTAL PROTEIN 4.7 g/dl (6.1-8.1)
[2016-09-24] MEDS ORDERED: DIGOXIN 500 MCG INJ IV ONE (08:00)
[2016-09-24] MEDS: FUROSEMIDE 20 MG INJ IV SCH (08:48)
[2016-09-24] MEDS: ENALAPRILAT 1.25 MG INJ IV SCH ×3 (08:49→22:00)
[2016-09-24] MEDS: [UNRECOGNIZED DRUG - REMARK] XX SCH (08:50)
[2016-09-24] MEDS: COLLAGENASE 30 GM TUBE TOP SCH (08:50)
[2016-09-24 10:07] LABS: MAGNESIUM 2.1 mg/dl (1.7-2.5); PHOSPHORUS 3.6 mg/dl (2.5-4.9)
--- NOTE | 2016-09-24 10:24 | PN ---
DATE: 09/24/2016 CARDIOLOGY FOLLOWUP SUBJECTIVE: Discussed with the staff. Rhythm strip was reviewed. The patient remains intubated on the vent. At this point, ____ has had intermittent pain and has been given ____ . Remains in sinu s tachycardia. MEDICATIONS: Reviewed as per medication reconciliation, was personally reviewed. PHYSICAL EXAMINATION: VITAL SIGNS: Temperature 99, heart rate of 116, blood pressure 114/78, respiration rate of 18, satu rating 100%. HEENT: Normocephalic, atraumatic. Status post intubation on the vent. CARDIOVASCULAR: Tachycardic. PULMONARY: Anteriorly mild rhonchi, diffuse. GASTROINTESTINAL: Soft. No rebound, no guarding. Distended. EXTREMITIES: Positive diffuse lower extremity edema. NEUROLOGIC: Awake, responds appropriately. PSYCHIATRIC: Appears to be calm and pleasant. LABORATORY: WBC of 15.5, hemoglobin 7.3, platelets of 89. Sodium 146, potassium 3.5, BUN of 43, cr eatinine 0.88, glucose 161. Alkaline phosphatase 800. Albumin is 2.6. ASSESSMENT AND PLAN: 1. Septic shock, currently blood pressure has improved. 2. Hypoxemia with hypercapnic respiratory failure, status post intubation on the vent. Difficult t o wean off. 3. Electrolyte abnormality and hypernatremia. 4. Fluid overload, congestive heart failure. 5. Severe cardiomyopathy, unclear ischemic versus nonischemic. 6. Mildly abnormal troponin secondary to above. RECOMMENDATIONS: Will give another dose of digoxin now. Follow renal function. Unable to give any oral medications at this point because of the perforated bowel. Electrolytes will be corrected as n eeded. Follow the renal recommendations regarding that as well. Continue with the supportive care. Weaning if able to tolerate it, but so far she has failed it and she might need tracheostomy if it is not able to be weaned off. Continue with ICU care for now. Will consider addition of Vasotec I V if okay with renal. Dictated By: JIM HARRIS/EHSAN Conf#: [id number] DID#: [id number]
[2016-09-24 10:44] LABS: LYMPHOCYTES # 0.5 10^3/ul (0.8-2.9); MONOCYTE # 0.9 10^3/ul (0.3-0.9); NEUTROPHIL # 11.3 10^3/ul (1.6-7.5)
--- NOTE | 2016-09-24 10:46 | PN ---
Date/Time of Note Date/Time of Note DATE: 09/24/16 TIME: 10:42 Assessment/Plan VTE Prophylaxis VTE Prophylaxis Intervention: SCD's Lines/Catheters IV Catheter Type (from Nrsg): PICC Line Central line still needed: Yes Urinary Cath still in place: No Assessment/Plan Assessment/Plan ASSESSMENT: 61 you F with stage 4 cervical cancer with mets to pelvis with resultant hydronephrosis warranting bl nephrostomy tube placement, obstruction of sigmoid colon with resultant perforatin admitted for septic shock. Also found to have LUE DVT, possible UTI, acute renal failure and acute hypoxic respiratory failure. 1. Shock. Most probably underlying septic shock. resolved status post aggressive medical management, IV fluid, pressors and antibiotics Likely secondary to perforated sigmoid colon versus early pneumonia 2. Post colonoscopy perforated viscus large pelvic mass invading colon wall site of perforation, contrast leakage to pelvic area, Contained perforation as no evidence of generalized peritonitis Abx as per ID Contained perforation as no evidence of generalized peritonitis General surgery has been consulted, follow general surgery recommendations 3. History of metastatic cervical cancer. Status post radiation and chemo. Currently, getting palliative chemotherapy. Palliative care already following the patient. 4. Hypochromic anemia. Etiology unclear. Status post PRBC transfusion. Hemoglobin and hematocrit are stable Continue proton pump inhibitors. Follow-up CBC in a.m. 5. Chronic ureteral obstruction , s/p Bilateral nephrostomy tubes. Continue monitoring. 6. Acute respiratory failure. Pulmonology has been consulted, continue vent management-->EXTUBATED THIS AFTERNOON 7. Cardiomyopathy with ejection fraction of 20%. Cardiology has been consulted 8. Possible underlying ileus. Continue p.r.n. antiemetics. abx as per ID. Gastroenterology following the patient. 9. Severe LE edema and anasarca 2/2 mass effect 10. Stage III sacral decubitus, continue wound care, repositioning as protocol Deep venous thrombosis prophylaxis. Bilateral sequential compression devices. Gastrointestinal prophylaxis. Proton pump inhibitors. Prognosis: guarded Subjective 24 Hr Interval Summary Free Text/Dictation Pt does not appear to be in pain. Does not follow commands Exam/Review of Systems Vital Signs Vitals Vital Signs Date Time Temp Pulse Resp B/P Pulse Ox O2 Delivery O2 Flow Rate FiO2 09/24/16 10:00 119 17 119/71 100 Mechanical Ventilator 09/24/16 09:24 30 09/24/16 08:00 98.4 Intake and Output 09/23/16 09/23/16 09/24/16 15:00 23:00 07:00 Intake Total 660.5 ml 489.665 ml 460.831 ml Output Total 920 ml 1250 ml 1330 ml Balance -259.5 ml -760.335 ml -869.169 ml Exam frail no mrg lungs clear abd soft bl nephrostomy tubes no le edema Results Result Diagram: 09/24/16 0500 09/24/16 0500 Results 24 hrs Laboratory Tests Test 09/23/16 12:15 09/23/16 17:24 09/24/16 00:04 09/24/16 05:00 Bedside Glucose 160 158 132 White Blood Count 15.5 #H Red Blood Count 2.33 #L Hemoglobin 7.3 #L Hematocrit 22.9 L Mean Corpuscular Volume 98.3 Mean Corpuscular Hemoglobin 31.3 Mean Corpuscular Hemoglobin Concent 31.9 L Red Cell Distribution Width 24.0 H Platelet Count 89 L Mean Platelet Volume 13.7 H Neutrophils % Eosinophils % Neutrophils # Eosinophils # Sodium Level 146 H Potassium Level 3.5 Chloride Level 110 Carbon Dioxide Level 28 Anion Gap 12 Blood Urea Nitrogen 43 H Creatinine 0.88 Glucose Level 161 Calcium Level 10.1 Phosphorus Level 3.6 Magnesium Level 2.1 Total Bilirubin 0.3 Direct Bilirubin 0.10 Indirect Bilirubin 0.2 Aspartate Amino Transf (AST/SGOT) 62 H Alanine Aminotransferase (ALT/SGPT) 65 Alkaline Phosphatase 800 H Total Protein 4.7 L Albumin 2.6 L Globulin 2.10 Albumin/Globulin Ratio 1.23 Test 09/24/16 05:36 Bedside Glucose 167 Medications Medications Current Medications Acetaminophen (Tylenol Tab) 650 mg Q6H PRN PO PAIN LEVEL 1-3 OR FEVER; Start at 18:30 Morphine Sulfate (morphine) 2 mg Q4H PRN IV SEVERE PAIN LEVEL 7-10 Last administered on 09/19/16t 05:41; Admin Dose 2 MG; Start 09/05/16 at 18:30 Docusate Sodium (Colace) 100 mg Q12H PRN PO CONSTIPATION; Start 09/05/16 at 18: 30 Magnesium Hydroxide (Milk Of Mag) 30 ml DAILY PRN PO CONSTIPATION; Start at 18:30 Sodium Biphosphate/ Sodium Phosphate (Fleet Enema) 133 ml DAILY PRN SD CONSTIPATION; Start 09/05/16 at 18:30 Hydralazine HCl (Apresoline) 10 mg Q6H PRN IV ELEVATED BLOOD PRESSURE; Start at 18:30 Nitroglycerin (Nitroglycerin (Sl Tab) 0.4 Mg) 1 tab Q5M PRN SL ANGINA; Start at 18:30 Miscellaneous Information 1 ea NOTE XX ; Start 09/05/16 at 19:00 Glucose (Glutose) 15 gm Q15M PRN PO DECREASED GLUCOSE; Start 09/05/16 at 19:00 Glucose (Glutose) 22.5 gm Q15M PRN PO DECREASED GLUCOSE; Start 09/05/16 at 19: 00 Dextrose (D50w Syringe) 25 ml Q15M PRN IV DECREASED GLUCOSE; Start 09/05/16 at 19:00 Dextrose (D50w Syringe) 50 ml Q15M PRN IV DECREASED GLUCOSE; Start 09/05/16 at 19:00 Glucagon (Glucagen) 1 mg Q15M PRN IM DECREASED GLUCOSE; Start 09/05/16 at 19:00 Glucose 15 gm 15 gm Q15M PRN BUCCAL DECREASED GLUCOSE; Start 09/05/16 at 19:00 Ondansetron HCl/ Sodium Chloride (Zofran Inj/NS) 54 ml @ 216 mls/hr Q6H PRN IV NAUSEA AND/OR VOMITING Last administered on 09/07/16 17:27; Admin Dose 216 MLS/HR; Start 09/06/16 at 10:30 Pantoprazole 40 mg 40 mg BID@06,18 IV Last administered on 09/24/16 05:36; Admin Dose 40 MG; Start 09/08/16 at 18:00 Phenylephrine HCl/ Sodium Chloride (Julio-Syneph/NS) 500 ml @ 18.75 mls/ hr TITRATE IV ; Start 09/10/16 at 10:00 Miscellaneous Information PLEASE CHANGE ALL IVPB F... DAILY XX Last administered on 09/23/16 09:00; Admin Dose 1 EA; Start 09/10/16 at 08:30 Vasopressin 60 unit/Sodium Chloride 103 ml @ 0 mls/hr Q12H IVPB ; Start at 09:00; Status Future Hold Fat Emulsion Intravenous 500 ml @ 20.833 mls/ hr Q24H IV Last administered on 09/23/16 17:25; Admin Dose 20.833 MLS/HR; Start 09/11/16 at 16:00 Norepinephrine 16 mg/Sodium Chloride 500 ml @ 0 mls/hr TITRATE IV Last administered on 09/15/16 11:53; Admin Dose 3.75 MLS/HR; Start 09/11/16 at 20:31 Fentanyl (Sublimaze) 100 ml @ 5 mls/hr TITRATE IV Last administered on 17:42; Admin Dose 2.5 MLS/HR; Start 09/13/16 at 07:45 Hydrocortisone (Solu-Cortef) 50 mg Q8 IV Last administered on 09/24/16 05:36; Admin Dose 50 MG; Start 09/13/16 at 14:00 Lorazepam 1 mg 1 mg Q4 PRN IV ANXIETY Last administered on 09/20/16 05:56; Admin Dose 1 MG; Start 09/14/16 at 06:30 Midazolam HCl (Versed) 50 ml @ 1 mls/hr TITRATE IV ; Start 09/14/16 at 10:30 Insulin Aspart (Novolog Insulin Pen) NOVOLOG *MILD* ALGORI... Q6 SC Last administered on 09/24/16 05:37; Admin Dose 1 UNIT; Start 09/16/16 at 00:00 Collagenase 1 applic 1 applic DAILY TOP Last administered on 09/24/16 08:50; Admin Dose 1 APPLIC; Start 09/17/16 at 09:00 Total Parenteral Nutrition (Tpn) 1,000 ml @ 40 mls/hr Q24H IV Last administered on 09/23/16 19:57; Admin Dose 40 MLS/HR; Start 09/19/16 at 16:00 Furosemide (Lasix) 20 mg DAILY IV Last administered on 09/24/16 08:48; Admin Dose 20 MG; Start 09/23/16 at 09:00 Enalaprilat (Vasotec Iv) 0.625 mg Q8 IV Last administered on 09/24/16 08:49; Admin Dose 0.625 MG; Start 09/24/16 at 08:09 HAILE CHAPARRO MD Sep 24, 2016 10:46
[2016-09-24 11:13] LABS: AADO2 Arterial 60.9 mmHg (7.0-24.0); Allen Test ACCEPTAB; Arterial Base Excess 5.8 mmol/L (-3.0-3); Arterial COHb 0.4 % (0.0-3.0); Arterial Fraction of Oxyhgb 96.8 % (93.0-99.0); Arterial HCO3 29.1 mmol/L (22.0-26.0); Arterial MetHb 0.8 % (0.0-1.5); Arterial Total Hemglobin 6.8 g/dl (12.0-18.0); Blood Gas PS 10; MODE VENT - CPAP
--- NOTE | 2016-09-24 12:14 | PN ---
DATE: 09/24/2016 REASON FOR FOLLOWUP: Respiratory failure. SUBJECTIVE: The patient Dickinson is stable on mechanical ventilation. Eyes open, follows simple comma nds, does not appear to be in respiratory distress. PHYSICAL EXAMINATION: VITAL SIGNS: Temperature 98, pulse 119, blood pressure 119/71, O2 saturation 96% on FIO2 of 30%, or ally intubated. HEENT: Dry mucous membranes. Pupils equal and reactive to light. CARDIAC: S1, S2, no added sounds or murmurs. CHEST: Diminished air entry bilaterally. ABDOMEN: Soft, nontender. No guarding or rebound. EXTREMITIES: No cyanosis, clubbing, edema. NEUROLOGIC: Generalized weakness. LABORATORY DATA: White count 15.5, hemoglobin 7.3, platelets of 89. BUN 43, creatinine 0.88. INR 1.16. ABG on CPAP 7.51, pCO2 of 36, PaO2 of 110. Chest x-ray was reviewed and she will require another chest x-ray as needed. IMPRESSION AND PLAN: 1. Hypoxemic respiratory failure. Hopefully, stable to extubate on CPAP. 2. Pelvic mass with metastatic cervical cancer. 3. Proximal sigmoid colon obstruction with recent perforation. 4. Recent urinary tract infection. 5. Upper extremity deep vein thrombosis. PLAN: Hopefully, the patient able to safely extubate. Post-extubation incentive spirometry and bro nchodilators as needed. I had an extensive discussion with the patient's son at bedside, discussed the possibility of not being able to come off of mechanical ventilation and/or requiring reintubatio n if her respiratory status deteriorates. The patient's family currently not indicating plan of car e. Stated they want to continue current measures and defer decision about reintubation or tracheost tory if needed. Therefore, if the patient does have respiratory distress, she will require reintubat ion if planned extubation fails. Hopefully, this will be unnecessary. Dictated By: MAYRA PECK/EHSAN Conf#: [id number] DID#: [id number]
--- NOTE | 2016-09-24 13:27 | PN ---
DATE: 09/24/2016 SUBJECTIVE: ____ stable, but critical. The patient's hematuria ____ has been clearing, and the jelly udval was seen by urology yesterday. OBJECTIVE: VITAL SIGNS: Currently blood pressure 114/78, respirations ____, pulse ____, temperature ____. I'S AND O'S: Shows 1.6 L in, 3.5 L out. HEENT: Head is normocephalic. Pupils are reactive to light. NECK: Supple. HEART: Regular rate. LUNGS: Show diminished breath sounds at the base. ABDOMEN: Soft. Nontender to palpation. No rebound or guarding. EXTREMITIES: Negative for clubbing, cyanosis. Positive edema in bilateral lower extremities. DERMATOLOGIC: ____. MUSCULOSKELETAL: ____. NEUROLOGIC: No change in exam. MEDICATIONS: The patient's medications have been reviewed. LABORATORY DATA: Shows white count 13.5, hemoglobin ____, hematocrit ____, platelet count is 89. S odium 146, ____, creatinine 0.88. ASSESSMENT AND PLAN: 1. Nonoliguric acute kidney injury. Etiology is secondary to acute tubular necrosis. Renal functi on has improved. Plan at this point is to continue current treatment plan, supportive care, and renee ally dose medications. 2. Bilateral hydronephrosis, status post nephrostomy tubes. The patient ____ seen by urology with possible recommendations ____ tubes. Will follow up with ____ once the decision has been made. 3. Hyponatremia secondary to insensible losses. The patient ____ fluids are being adjusted. 4. Volume overload secondary to congestive heart failure, mass effect. At this point, continue low -dose ____ therapy and monitor. 5. Ventilator-dependent respiratory failure. Vent settings have been reviewed. ABG has been revie wed. Continue to monitor. Follow up with pulmonary. 6. Coronary artery disease. Continue current treatment plan. 7. Anemia. Continue to monitor hemoglobin and hematocrit levels. 8. Dysphagia. Continue tube feeding. Dictated By: URIEL RAMESH/EHSAN Conf#: [id number] DID#: [id number]
--- NOTE | 2016-09-24 13:29 | RADRPT ---
PROCEDURE: XR Chest 1 View. CLINICAL INDICATION: Shortness of breath. TECHNIQUE: AP view of the chest was obtained. COMPARISON: September 17, 2016 FINDINGS: The cardiomediastinal silhouette is within normal limits. Endotracheal and nasogastric tubes are sta ble and appear in grossly appropriate location. Right-sided chest port is unchanged. Left-sided PIC C line is stable. Minimal atelectasis is seen in the bilateral lower lobes. No consolidations are i dentified. No pneumothorax is seen. The osseous structures are osteopenic, but appear intact. IMPRESSION: Minimal atelectasis in the bilateral lower lobes. Stable support lines and tubes. RPTAT: AA .Akbar Tripp MD, Date Time Electronically viewed and signed by .Akbar Tripp MD, on 09/24/2016 13:29 .P/
--- NOTE | 2016-09-24 13:45 | CONS ---
Date/Time of Note Date/Time of Note DATE: 09/24/16 TIME: 13:43 Assessment/Plan Assessment/Plan Chief Complaint/Hosp Course SUBJECTIVE: awake, looks comfortable on Cpap, no fevers INDWELLINGS: Endotracheal tube, NG tube, PICC line, placed 09/11/2016, right chest Port-A-Cath, B nephrostomies. PHYSICAL EXAMINATION: GENERAL: Chronically ill-appearing, elderly woman, in no distress. HEENT: Head atraumatic, normocephalic. Sclerae anicteric. Buccal mucosa dry. NECK: Supple, trachea midline. CHEST: Chest rise is symmetrical. Breath sounds diminished to the bases. HEART: S1, S2. ABDOMEN: Soft, bowel tones present. Abdomen distended. Bowel tones hypoactive. EXTREMITIES: With bilateral edema. ASSESSMENT: 1. S/p sepsis with shock and multisystem organ failure. 2. Large pelvic mass/ metastatic cervical cancer 3. Proximal sigmoid colon obstruction with perforation. 4. Urinary tract infection, per urinalysis. 5. Acute renal and respiratory failure. 6. LUE DVT with PICC present PLAN: Remains hemodynamically stable, completed abx, continue weaning as per pulmonary team, urology rec-s noted [facility] staff Problems: Consultation Date/Type/Reason Admit Date/Time September 05, 2016 at 16:23 Initial Consult Date 09/06/16 Type of Consultation: id Referring Provider: MORIAH GARRIDO Exam/Review of Systems Vital Signs Vitals Vital Signs Date Time Temp Pulse Resp B/P Pulse Ox O2 Delivery O2 Flow Rate FiO2 09/24/16 13:00 124 27 121/84 100 Mechanical Ventilator 09/24/16 13:00 30 09/24/16 12:00 98.9 Intake and Output 09/23/16 09/23/16 09/24/16 15:00 23:00 07:00 Intake Total 660.5 ml 489.665 ml 460.831 ml Output Total 920 ml 1250 ml 1330 ml Balance -259.5 ml -760.335 ml -869.169 ml Results Result Diagram: 09/24/16 0500 09/24/16 0500 Results 24 hrs Laboratory Tests Test 09/23/16 17:24 09/24/16 00:04 09/24/16 05:00 09/24/16 05:36 Bedside Glucose 158 132 167 White Blood Count 15.5 #H Red Blood Count 2.33 #L Hemoglobin 7.3 #L Hematocrit 22.9 L Mean Corpuscular Volume 98.3 Mean Corpuscular Hemoglobin 31.3 Mean Corpuscular Hemoglobin Concent 31.9 L Red Cell Distribution Width 24.0 H Platelet Count 89 L Mean Platelet Volume 13.7 H Neutrophils % 73.0 Band Neutrophils % 18.0 H Lymphocytes % 3.0 L Monocytes % 6.0 Eosinophils % Neutrophils # 11.3 H Lymphocytes # 0.5 L Monocytes # 0.9 Eosinophils # Sodium Level 146 H Potassium Level 3.5 Chloride Level 110 Carbon Dioxide Level 28 Anion Gap 12 Blood Urea Nitrogen 43 H Creatinine 0.88 Glucose Level 161 Calcium Level 10.1 Phosphorus Level 3.6 Magnesium Level 2.1 Total Bilirubin 0.3 Direct Bilirubin 0.10 Indirect Bilirubin 0.2 Aspartate Amino Transf (AST/SGOT) 62 H Alanine Aminotransferase (ALT/SGPT) 65 Alkaline Phosphatase 800 H Total Protein 4.7 L Albumin 2.6 L Globulin 2.10 Albumin/Globulin Ratio 1.23 Test 09/24/16 11:16 09/24/16 11:20 Bedside Glucose 162 Blood Gas Specimen Source Blood arterial Arterial Blood Date Drawn 09/24/2016 11:00:00 AM Arterial Blood pH (Temp corrected) 7.519 H Arterial Blood pCO2 (Temp correct) 36.6 Arterial Blood pO2 (Temp corrected) 110.0 H Arterial Blood HCO3 29.1 H Arterial Blood Base Excess 5.8 H Arterial Blood Oxygen Saturation 98.0 Que Test ACCEPTAB Arterial Blood Gas Puncture Site Right Radial Arterial Blood Carboxyhemoglobin 0.4 Arterial Blood Methemoglobin 0.8 Blood Gas A-a O2 Differential 60.9 H Oxyhemoglobin Percent 96.8 Total Hemoglobin 6.8 L Blood Gas Temperature 37.0 Blood Gas Actual Respiration Rate 23 Blood Gas Modality VENT - CPAP FiO2 30.0 Blood Gas Low PEEP Setting 5.0 Blood Gas Pressure Support 10 Blood Gas Notified Whom JLD Blood Gas Notified Time 09/24/2016 11:13:00 AM Medications Medications Current Medications Acetaminophen (Tylenol Tab) 650 mg Q6H PRN PO PAIN LEVEL 1-3 OR FEVER; Start at 18:30 Morphine Sulfate (morphine) 2 mg Q4H PRN IV SEVERE PAIN LEVEL 7-10 Last administered on 09/19/16t 05:41; Admin Dose 2 MG; Start 09/05/16 at 18:30 Docusate Sodium (Colace) 100 mg Q12H PRN PO CONSTIPATION; Start 09/05/16 at 18: 30 Magnesium Hydroxide (Milk Of Mag) 30 ml DAILY PRN PO CONSTIPATION; Start at 18:30 Sodium Biphosphate/ Sodium Phosphate (Fleet Enema) 133 ml DAILY PRN [place] CONSTIPATION; Start 09/05/16 at 18:30 Hydralazine HCl (Apresoline) 10 mg Q6H PRN IV ELEVATED BLOOD PRESSURE; Start at 18:30 Nitroglycerin (Nitroglycerin (Sl Tab) 0.4 Mg) 1 tab Q5M PRN SL ANGINA; Start at 18:30 Miscellaneous Information 1 ea NOTE XX ; Start 09/05/16 at 19:00 Glucose (Glutose) 15 gm Q15M PRN PO DECREASED GLUCOSE; Start 09/05/16 at 19:00 Glucose (Glutose) 22.5 gm Q15M PRN PO DECREASED GLUCOSE; Start 09/05/16 at 19: 00 Dextrose (D50w Syringe) 25 ml Q15M PRN IV DECREASED GLUCOSE; Start 09/05/16 at 19:00 Dextrose (D50w Syringe) 50 ml Q15M PRN IV DECREASED GLUCOSE; Start 09/05/16 at 19:00 Glucagon (Glucagen) 1 mg Q15M PRN IM DECREASED GLUCOSE; Start 09/05/16 at 19:00 Glucose 15 gm 15 gm Q15M PRN BUCCAL DECREASED GLUCOSE; Start 09/05/16 at 19:00 Ondansetron HCl/ Sodium Chloride (Zofran Inj/NS) 54 ml @ 216 mls/hr Q6H PRN IV NAUSEA AND/OR VOMITING Last administered on 09/07/16 17:27; Admin Dose 216 MLS/HR; Start 09/06/16 at 10:30 Pantoprazole 40 mg 40 mg BID@06,18 IV Last administered on 09/24/16 05:36; Admin Dose 40 MG; Start 09/08/16 at 18:00 Phenylephrine HCl/ Sodium Chloride (Julio-Syneph/NS) 500 ml @ 18.75 mls/ hr TITRATE IV ; Start 09/10/16 at 10:00 Miscellaneous Information PLEASE CHANGE ALL IVPB F... DAILY XX Last administered on 09/23/16 09:00; Admin Dose 1 EA; Start 09/10/16 at 08:30 Vasopressin 60 unit/Sodium Chloride 103 ml @ 0 mls/hr Q12H IVPB ; Start at 09:00; Status Future Hold Fat Emulsion Intravenous 500 ml @ 20.833 mls/ hr Q24H IV Last administered on 09/23/16 17:25; Admin Dose 20.833 MLS/HR; Start 09/11/16 at 16:00 Norepinephrine 16 mg/Sodium Chloride 500 ml @ 0 mls/hr TITRATE IV Last administered on 09/15/16 11:53; Admin Dose 3.75 MLS/HR; Start 09/11/16 at 20:31 Fentanyl (Sublimaze) 100 ml @ 5 mls/hr TITRATE IV Last administered on 17:42; Admin Dose 2.5 MLS/HR; Start 09/13/16 at 07:45 Hydrocortisone (Solu-Cortef) 50 mg Q8 IV Last administered on 09/24/16 05:36; Admin Dose 50 MG; Start 09/13/16 at 14:00 Lorazepam 1 mg 1 mg Q4 PRN IV ANXIETY Last administered on 09/20/16 05:56; Admin Dose 1 MG; Start 09/14/16 at 06:30 Midazolam HCl (Versed) 50 ml @ 1 mls/hr TITRATE IV ; Start 09/14/16 at 10:30 Insulin Aspart (Novolog Insulin Pen) NOVOLOG *MILD* ALGORI... Q6 SC Last administered on 09/24/16 11:18; Admin Dose 1 UNIT; Start 09/16/16 at 00:00 Collagenase 1 applic 1 applic DAILY TOP Last administered on 09/24/16 08:50; Admin Dose 1 APPLIC; Start 09/17/16 at 09:00 Total Parenteral Nutrition (Tpn) 1,000 ml @ 40 mls/hr Q24H IV Last administered on 09/23/16 19:57; Admin Dose 40 MLS/HR; Start 09/19/16 at 16:00 Furosemide (Lasix) 20 mg DAILY IV Last administered on 09/24/16 08:48; Admin Dose 20 MG; Start 09/23/16 at 09:00 Enalaprilat (Vasotec Iv) 0.625 mg Q8 IV Last administered on 09/24/16t 08:49; Admin Dose 0.625 MG; Start 09/24/16 at 08:09 BIN MITTAL NP Sep 24, 2016 13:45
--- NOTE | 2016-09-24 14:02 | EN ---
Date/Time of Note Date/Time of Note DATE: 09/24/16 TIME: 13:53 Event Note Medicine Medicine Event Note Patient's arterial blood gas and chest x-ray were reviewed. Arterial blood gas showed mild respiratory alkalosis chest x-ray shows no significant infiltrates or effusions. Patient continues to tolerate CPAP well with mild baseline tachycardia. No evidence of tachypnea. She remains awake alert but not consistently responding to questions. Patient's son at bedside. I discussed the probability of extubating the patient today hopefully she will remain stable. I also attempted to discuss possibility of deterioration in condition if extubation fails and the plan of care if this should happen. Patient's son was recording entire conversation. With social professionals patient's nurse and respiratory therapist at bedside we discussed possibilities of deterioration post extubation. I explained to patient and son if she deteriorates she will require a stepwise approach to stabilizing her which includes facemask O2, noninvasive positive pressure ventilation with BiPAP. If this fails she would require reintubation if this was consistent with her wishes. Patient son attempted to ask the patient what her wishes were but she was not able to indicate what her desire was, as her durable power I asked the son what his wishes were should she deteriorate postextubation he deferred this decision to the patient. I explained to him that in an extreme situation she may not be able to respond in time and we should have a plan in place. He repeatedly suggested we contact him or his siblings in the case of an acute deterioration which we would of course do. He would make a decision at that point. I explained to him that sometimes there is not enough time to do this in an emergency. We will do our best to contact him and his siblings if her condition deteriorates so that they can be involved in any decision-making. He reiterated that ultimately we should be consistent with the patient's wishes. Currently her wishes per documentation are to continue all aggressive measures. Therefore this would include reintubation if needed. Hopefully patient will be safely extubated and remain stable. At which point we can ask the patient what her wishes are regarding further aggressive measures. Discussed with patient's son, palliative care and nursing staff, and social professionals. MAYRA CASTANEDA MD, [facility] Sep 24, 2016 14:02
[2016-09-24] MEDS: TPN 1,000 ML IV SCH (15:59)
[2016-09-24] MEDS: FAT EMULSION 20% 500 ML IV SCH (16:00)
--- NOTE | 2016-09-24 17:35 | CONS ---
Date/Time of Note Date/Time of Note DATE: 09/24/16 TIME: 17:30 Assessment/Plan Assessment/Plan Additional Assessment/Plan Long discussion with family last night , discussed options and reintubate if she requires. They were to discuss and call me , I didn't hear from family last evening. Today Ms. Dickinson was successfully extubated but Bioethics Meeting still requested to clarify goals if she deteriorates again. D/W Dr. Wills Consultation Date/Type/Reason Admit Date/Time September 05, 2016 at 16:23 Initial Consult Date 09/06/16 Type of Consultation: id Referring Provider: MORIAH GARRIDO Exam/Review of Systems Vital Signs Vitals Vital Signs Date Time Temp Pulse Resp B/P Pulse Ox O2 Delivery O2 Flow Rate FiO2 09/24/16 16:00 115 09/24/16 15:00 29 101/67 100 Mechanical Ventilator 09/24/16 14:24 6.0 09/24/16 13:00 30 09/24/16 12:00 98.9 Intake and Output 09/23/16 09/23/16 09/24/16 15:00 23:00 07:00 Intake Total 660.5 ml 489.665 ml 460.831 ml Output Total 920 ml 1250 ml 1330 ml Balance -259.5 ml -760.335 ml -869.169 ml Exam Constitutional: frail Respiratory: congested cough Neurological: S[employer] II-XII intact, confused Results Result Diagram: 09/24/16 0500 09/24/16 0500 Results 24 hrs Laboratory Tests Test 09/24/16 00:04 09/24/16 05:00 09/24/16 05:36 09/24/16 11:16 Bedside Glucose 132 167 162 White Blood Count 15.5 #H Red Blood Count 2.33 #L Hemoglobin 7.3 #L Hematocrit 22.9 L Mean Corpuscular Volume 98.3 Mean Corpuscular Hemoglobin 31.3 Mean Corpuscular Hemoglobin Concent 31.9 L Red Cell Distribution Width 24.0 H Platelet Count 89 L Mean Platelet Volume 13.7 H Neutrophils % 73.0 Band Neutrophils % 18.0 H Lymphocytes % 3.0 L Monocytes % 6.0 Eosinophils % Neutrophils # 11.3 H Lymphocytes # 0.5 L Monocytes # 0.9 Eosinophils # Sodium Level 146 H Potassium Level 3.5 Chloride Level 110 Carbon Dioxide Level 28 Anion Gap 12 Blood Urea Nitrogen 43 H Creatinine 0.88 Glucose Level 161 Calcium Level 10.1 Phosphorus Level 3.6 Magnesium Level 2.1 Total Bilirubin 0.3 Direct Bilirubin 0.10 Indirect Bilirubin 0.2 Aspartate Amino Transf (AST/SGOT) 62 H Alanine Aminotransferase (ALT/SGPT) 65 Alkaline Phosphatase 800 H Total Protein 4.7 L Albumin 2.6 L Globulin 2.10 Albumin/Globulin Ratio 1.23 Test 09/24/16 11:20 09/24/16 17:12 Blood Gas Specimen Source Blood arterial Arterial Blood Date Drawn 09/24/2016 11:00:00 AM Arterial Blood pH (Temp corrected) 7.519 H Arterial Blood pCO2 (Temp correct) 36.6 Arterial Blood pO2 (Temp corrected) 110.0 H Arterial Blood HCO3 29.1 H Arterial Blood Base Excess 5.8 H Arterial Blood Oxygen Saturation 98.0 Que Test ACCEPTAB Arterial Blood Gas Puncture Site Right Radial Arterial Blood Carboxyhemoglobin 0.4 Arterial Blood Methemoglobin 0.8 Blood Gas A-a O2 Differential 60.9 H Oxyhemoglobin Percent 96.8 Total Hemoglobin 6.8 L Blood Gas Temperature 37.0 Blood Gas Actual Respiration Rate 23 Blood Gas Modality VENT - CPAP FiO2 30.0 Blood Gas Low PEEP Setting 5.0 Blood Gas Pressure Support 10 Blood Gas Notified Whom JLD Blood Gas Notified Time 09/24/2016 11:13:00 AM Bedside Glucose 160 Medications Medications Current Medications Acetaminophen (Tylenol Tab) 650 mg Q6H PRN PO PAIN LEVEL 1-3 OR FEVER; Start at 18:30 Morphine Sulfate (morphine) 2 mg Q4H PRN IV SEVERE PAIN LEVEL 7-10 Last administered on 09/19/16t 05:41; Admin Dose 2 MG; Start 09/05/16 at 18:30 Docusate Sodium (Colace) 100 mg Q12H PRN PO CONSTIPATION; Start 09/05/16 at 18: 30 Magnesium Hydroxide (Milk Of Mag) 30 ml DAILY PRN PO CONSTIPATION; Start at 18:30 Sodium Biphosphate/ Sodium Phosphate (Fleet Enema) 133 ml DAILY PRN [place] CONSTIPATION; Start 09/05/16 at 18:30 Hydralazine HCl (Apresoline) 10 mg Q6H PRN IV ELEVATED BLOOD PRESSURE; Start at 18:30 Nitroglycerin (Nitroglycerin (Sl Tab) 0.4 Mg) 1 tab Q5M PRN SL ANGINA; Start at 18:30 Miscellaneous Information 1 ea NOTE XX ; Start 09/05/16 at 19:00 Glucose (Glutose) 15 gm Q15M PRN PO DECREASED GLUCOSE; Start 09/05/16 at 19:00 Glucose (Glutose) 22.5 gm Q15M PRN PO DECREASED GLUCOSE; Start 09/05/16 at 19: 00 Dextrose (D50w Syringe) 25 ml Q15M PRN IV DECREASED GLUCOSE; Start 09/05/16 at 19:00 Dextrose (D50w Syringe) 50 ml Q15M PRN IV DECREASED GLUCOSE; Start 09/05/16 at 19:00 Glucagon (Glucagen) 1 mg Q15M PRN IM DECREASED GLUCOSE; Start 09/05/16 at 19:00 Glucose 15 gm 15 gm Q15M PRN BUCCAL DECREASED GLUCOSE; Start 09/05/16 at 19:00 Ondansetron HCl/ Sodium Chloride (Zofran Inj/NS) 54 ml @ 216 mls/hr Q6H PRN IV NAUSEA AND/OR VOMITING Last administered on 09/07/16 17:27; Admin Dose 216 MLS/HR; Start 09/06/16 at 10:30 Pantoprazole 40 mg 40 mg BID@06,18 IV Last administered on 09/24/16 17:15; Admin Dose 40 MG; Start 09/08/16 at 18:00 Phenylephrine HCl/ Sodium Chloride (Julio-Syneph/NS) 500 ml @ 18.75 mls/ hr TITRATE IV ; Start 09/10/16 at 10:00 Miscellaneous Information PLEASE CHANGE ALL IVPB F... DAILY XX Last administered on 09/23/16 09:00; Admin Dose 1 EA; Start 09/10/16 at 08:30 Vasopressin 60 unit/Sodium Chloride 103 ml @ 0 mls/hr Q12H IVPB ; Start at 09:00; Status Future Hold Fat Emulsion Intravenous 500 ml @ 20.833 mls/ hr Q24H IV Last administered on 09/24/16 16:00; Admin Dose 20.833 MLS/HR; Start 09/11/16 at 16:00 Norepinephrine 16 mg/Sodium Chloride 500 ml @ 0 mls/hr TITRATE IV Last administered on 09/15/16 11:53; Admin Dose 3.75 MLS/HR; Start 09/11/16 at 20:31 Fentanyl (Sublimaze) 100 ml @ 5 mls/hr TITRATE IV Last administered on 17:42; Admin Dose 2.5 MLS/HR; Start 09/13/16 at 07:45 Hydrocortisone (Solu-Cortef) 50 mg Q8 IV Last administered on 09/24/16 14:13; Admin Dose 50 MG; Start 09/13/16 at 14:00 Lorazepam 1 mg 1 mg Q4 PRN IV ANXIETY Last administered on 09/20/16 05:56; Admin Dose 1 MG; Start 09/14/16 at 06:30 Midazolam HCl (Versed) 50 ml @ 1 mls/hr TITRATE IV ; Start 09/14/16 at 10:30 Insulin Aspart (Novolog Insulin Pen) NOVOLOG *MILD* ALGORI... Q6 SC Last administered on 09/24/16 17:17; Admin Dose 1 UNIT; Start 09/16/16 at 00:00 Collagenase 1 applic 1 applic DAILY TOP Last administered on 09/24/16 08:50; Admin Dose 1 APPLIC; Start 09/17/16 at 09:00 Total Parenteral Nutrition (Tpn) 1,000 ml @ 40 mls/hr Q24H IV Last administered on 09/24/16 15:59; Admin Dose 40 MLS/HR; Start 09/19/16 at 16:00 Furosemide (Lasix) 20 mg DAILY IV Last administered on 09/24/16 08:48; Admin Dose 20 MG; Start 09/23/16 at 09:00 Enalaprilat (Vasotec Iv) 0.625 mg Q8 IV Last administered on 09/24/16 08:49; Admin Dose 0.625 MG; Start 09/24/16 at 08:09 MORIAH GARRIDO Sep 24, 2016 17:35
--- NOTE | 2016-09-24 18:46 | PN ---
Date/Time of Note Date/Time of Note DATE: 09/24/16 TIME: 18:41 Assessment/Plan VTE Prophylaxis VTE Prophylaxis Intervention: contraindicated Lines/Catheters IV Catheter Type (from Nrs): PICC Line Central line still needed: Yes Urinary Cath still in place: No Assessment/Plan Assessment/Plan Anemia/no overt GI bleeding Rule out intra-abdominal bleeding versus hemolysis versus GI bleeding with slow transit Post colonoscopy perforated viscus * Large pelvic mass invading colon wall site of perforation * Contrast leakage to pelvic area * ?Contained perforation as no evidence of generalized peritonitis Sepsis Metastatic cervical CA/Adrenal/brain History of cervical cancer S/P nephrostomy tube bilateral EF 20% Plan continue present management swallow evaluation in morning and if patient passes we will request small bowel follow through studies Case was discussed with Dr Durant Subjective 24 Hr Interval Summary Free Text/Dictation * Course reviewed with RN * Patient seen and examined * Patient extubated today Exam/Review of Systems Vital Signs Vitals Vital Signs Date Time Temp Pulse Resp B/P Pulse Ox O2 Delivery O2 Flow Rate FiO2 09/24/16 18:00 120 23 123/81 100 Mechanical Ventilator 09/24/16 16:00 98.4 09/24/16 14:24 6.0 09/24/16 13:00 30 Intake and Output 09/23/16 09/23/16 09/24/16 15:00 23:00 07:00 Intake Total 660.5 ml 489.665 ml 460.831 ml Output Total 920 ml 1250 ml 1330 ml Balance -259.5 ml -760.335 ml -869.169 ml Exam Constitutional: alert, frail Neck: supple Respiratory: clear to auscultation, diminished breath sounds, normal air movement Cardiovascular: nl pulses, regular rate and rhythm Gastrointestinal: bowel sounds, distended, firm, No rebound or guarding Musculoskeletal: muscle weakness, swelling Extremities: edema Results Result Diagram: 09/24/16 0500 09/24/16 0500 Results 24 hrs Laboratory Tests Test 09/24/16 00:04 09/24/16 05:00 09/24/16 05:36 09/24/16 11:16 Bedside Glucose 132 167 162 White Blood Count 15.5 #H Red Blood Count 2.33 #L Hemoglobin 7.3 #L Hematocrit 22.9 L Mean Corpuscular Volume 98.3 Mean Corpuscular Hemoglobin 31.3 Mean Corpuscular Hemoglobin Concent 31.9 L Red Cell Distribution Width 24.0 H Platelet Count 89 L Mean Platelet Volume 13.7 H Neutrophils % 73.0 Band Neutrophils % 18.0 H Lymphocytes % 3.0 L Monocytes % 6.0 Eosinophils % Neutrophils # 11.3 H Lymphocytes # 0.5 L Monocytes # 0.9 Eosinophils # Sodium Level 146 H Potassium Level 3.5 Chloride Level 110 Carbon Dioxide Level 28 Anion Gap 12 Blood Urea Nitrogen 43 H Creatinine 0.88 Glucose Level 161 Calcium Level 10.1 Phosphorus Level 3.6 Magnesium Level 2.1 Total Bilirubin 0.3 Direct Bilirubin 0.10 Indirect Bilirubin 0.2 Aspartate Amino Transf (AST/SGOT) 62 H Alanine Aminotransferase (ALT/SGPT) 65 Alkaline Phosphatase 800 H Total Protein 4.7 L Albumin 2.6 L Globulin 2.10 Albumin/Globulin Ratio 1.23 Test 09/24/16 11:20 09/24/16 17:12 Blood Gas Specimen Source Blood arterial Arterial Blood Date Drawn 09/24/2016 11:00:00 AM Arterial Blood pH (Temp corrected) 7.519 H Arterial Blood pCO2 (Temp correct) 36.6 Arterial Blood pO2 (Temp corrected) 110.0 H Arterial Blood HCO3 29.1 H Arterial Blood Base Excess 5.8 H Arterial Blood Oxygen Saturation 98.0 Que Test ACCEPTAB Arterial Blood Gas Puncture Site Right Radial Arterial Blood Carboxyhemoglobin 0.4 Arterial Blood Methemoglobin 0.8 Blood Gas A-a O2 Differential 60.9 H Oxyhemoglobin Percent 96.8 Total Hemoglobin 6.8 L Blood Gas Temperature 37.0 Blood Gas Actual Respiration Rate 23 Blood Gas Modality VENT - CPAP FiO2 30.0 Blood Gas Low PEEP Setting 5.0 Blood Gas Pressure Support 10 Blood Gas Notified Whom JLD Blood Gas Notified Time 09/24/2016 11:13:00 AM Bedside Glucose 160 Medications Medications Current Medications Acetaminophen (Tylenol Tab) 650 mg Q6H PRN PO PAIN LEVEL 1-3 OR FEVER; Start at 18:30 Morphine Sulfate (morphine) 2 mg Q4H PRN IV SEVERE PAIN LEVEL 7-10 Last administered on 09/19/16t 05:41; Admin Dose 2 MG; Start 09/05/16 at 18:30 Docusate Sodium (Colace) 100 mg Q12H PRN PO CONSTIPATION; Start 09/05/16 at 18: 30 Magnesium Hydroxide (Milk Of Mag) 30 ml DAILY PRN PO CONSTIPATION; Start at 18:30 Sodium Biphosphate/ Sodium Phosphate (Fleet Enema) 133 ml DAILY PRN [place] CONSTIPATION; Start 09/05/16 at 18:30 Hydralazine HCl (Apresoline) 10 mg Q6H PRN IV ELEVATED BLOOD PRESSURE; Start at 18:30 Nitroglycerin (Nitroglycerin (Sl Tab) 0.4 Mg) 1 tab Q5M PRN SL ANGINA; Start at 18:30 Miscellaneous Information 1 ea NOTE XX ; Start 09/05/16 at 19:00 Glucose (Glutose) 15 gm Q15M PRN PO DECREASED GLUCOSE; Start 09/05/16 at 19:00 Glucose (Glutose) 22.5 gm Q15M PRN PO DECREASED GLUCOSE; Start 09/05/16 at 19: 00 Dextrose (D50w Syringe) 25 ml Q15M PRN IV DECREASED GLUCOSE; Start 09/05/16 at 19:00 Dextrose (D50w Syringe) 50 ml Q15M PRN IV DECREASED GLUCOSE; Start 09/05/16 at 19:00 Glucagon (Glucagen) 1 mg Q15M PRN IM DECREASED GLUCOSE; Start 09/05/16 at 19:00 Glucose 15 gm 15 gm Q15M PRN BUCCAL DECREASED GLUCOSE; Start 09/05/16 at 19:00 Ondansetron HCl/ Sodium Chloride (Zofran Inj/NS) 54 ml @ 216 mls/hr Q6H PRN IV NAUSEA AND/OR VOMITING Last administered on 09/07/16 17:27; Admin Dose 216 MLS/HR; Start 09/06/16 at 10:30 Pantoprazole 40 mg 40 mg BID@06,18 IV Last administered on 09/24/16 17:15; Admin Dose 40 MG; Start 09/08/16 at 18:00 Phenylephrine HCl/ Sodium Chloride (Julio-Syneph/NS) 500 ml @ 18.75 mls/ hr TITRATE IV ; Start 09/10/16 at 10:00 Miscellaneous Information PLEASE CHANGE ALL IVPB F... DAILY XX Last administered on 09/23/16 09:00; Admin Dose 1 EA; Start 09/10/16 at 08:30 Vasopressin 60 unit/Sodium Chloride 103 ml @ 0 mls/hr Q12H IVPB ; Start at 09:00; Status Future Hold Fat Emulsion Intravenous 500 ml @ 20.833 mls/ hr Q24H IV Last administered on 09/24/16 16:00; Admin Dose 20.833 MLS/HR; Start 09/11/16 at 16:00 Norepinephrine 16 mg/Sodium Chloride 500 ml @ 0 mls/hr TITRATE IV Last administered on 09/15/16 11:53; Admin Dose 3.75 MLS/HR; Start 09/11/16 at 20:31 Fentanyl (Sublimaze) 100 ml @ 5 mls/hr TITRATE IV Last administered on 17:42; Admin Dose 2.5 MLS/HR; Start 09/13/16 at 07:45 Hydrocortisone (Solu-Cortef) 50 mg Q8 IV Last administered on 09/24/16 14:13; Admin Dose 50 MG; Start 09/13/16 at 14:00 Lorazepam 1 mg 1 mg Q4 PRN IV ANXIETY Last administered on 09/20/16 05:56; Admin Dose 1 MG; Start 09/14/16 at 06:30 Midazolam HCl (Versed) 50 ml @ 1 mls/hr TITRATE IV ; Start 09/14/16 at 10:30 Insulin Aspart (Novolog Insulin Pen) NOVOLOG *MILD* ALGORI... Q6 SC Last administered on 09/24/16 17:17; Admin Dose 1 UNIT; Start 09/16/16 at 00:00 Collagenase 1 applic 1 applic DAILY TOP Last administered on 09/24/16 08:50; Admin Dose 1 APPLIC; Start 09/17/16 at 09:00 Total Parenteral Nutrition (Tpn) 1,000 ml @ 40 mls/hr Q24H IV Last administered on 09/24/16 15:59; Admin Dose 40 MLS/HR; Start 09/19/16 at 16:00 Furosemide (Lasix) 20 mg DAILY IV Last administered on 09/24/16 08:48; Admin Dose 20 MG; Start 09/23/16 at 09:00 Enalaprilat (Vasotec Iv) 0.625 mg Q8 IV Last administered on 09/24/16 08:49; Admin Dose 0.625 MG; Start 09/24/16 at 08:09 [place] DE LEON NP Sep 24, 2016 18:46
--- NOTE | 2016-09-24 19:18 | QN ---
Documentation Comment Case reviewed, in view of successful extubation the possibility of oral/enteral nutrition is raised. Will evaluate with formal swallowing evaluation and will also obtain Gastrograffin small bowel series VIA NGT to assess as there is high likelihood of obstruction(s) in view of significant pelvic and intra-abdominal tumor load. Above was discussed in detail with patients son at bedside SAKSHI MENA MD Sep 24, 2016 19:18
[2016-09-24] MEDS: ALBUTEROL/IPRATROPIUM (NEB) 3 ML AMP HHN SCH (19:46)
[2016-09-25] VITALS (22 sets, daily range): BP systolic 91–121; BP diastolic 51–86; PULSE 110–131; RESP 19–29
[2016-09-25] MEDS: INSULIN ASPART [NOVOLOG] 3 ML PEN SC SCH ×4 (00:08→17:21)
[2016-09-25] MEDS: ALBUTEROL/IPRATROPIUM (NEB) 3 ML AMP HHN SCH ×4 (01:30→21:15)
[2016-09-25] MEDS: PANTOPRAZOLE 40 MG INJ IV SCH ×2 (05:36→17:21)
[2016-09-25] MEDS: HYDROCORTISONE 100 MG INJ IV SCH ×3 (05:37→22:45)
[2016-09-25] MEDS: ENALAPRILAT 1.25 MG INJ IV SCH ×3 (05:43→22:00)
[2016-09-25 06:59] LABS: ADD SCAN DIFF NO
[2016-09-25 07:01] LABS: ABNORMAL IP MESSAGE 1; HEMATOCRIT 23.2 % (37.0-47.0); MEAN CORPUSCULAR VOLUME 106.9 fl (82.0-101.0); MEAN PLATELET VOLUME 15.3 fl (7.4-10.4); PLATELET COUNT 75 10^3/UL (140-415); RED BLOOD COUNT 2.17 10^6/ul (4.20-5.40); RED CELL DISTRIBUTION WIDTH 23.5 % (11.5-14.5); WHITE BLOOD COUNT 12.8 10^3/ul (4.8-10.8)
[2016-09-25 07:05] LABS: HEMOGLOBIN 10.8 g/dl (12.0-16.0); MEAN CORPUSCULAR HEMOGLOBIN 49.8 pg (29.0-33.0); MEAN CORPUSCULAR HGB CONC 46.6 g/dl (32.0-37.0)
--- NOTE | 2016-09-25 07:48 | PN ---
DATE: 09/25/2016 SUBJECTIVE: The patient was extubated yesterday, without any complications. No other acute concern s noted. No events noted. OBJECTIVE: VITAL SIGNS: Blood pressure 111/69, respirations 26, pulse 121, temperature 98.0. HEENT: Head is normocephalic. NECK: Supple. HEART: Tachycardic. LUNGS: Showed diminished breath sounds at the base, otherwise clear. ABDOMEN: Soft, nontender to palpation. No rebound or guarding. EXTREMITIES: Negative for clubbing or cyanosis. Positive edema. No change. DERMATOLOGIC: No rashes. MUSCULOSKELETAL: Have no joint effusion. NEUROLOGIC: No change in exam. MEDICATIONS: The patient's medications have been reviewed. LABORATORY DATA: Shows white count 12.8, hemoglobin 10.8, hematocrit 23.2, platelet count 75. Gala ent's BMP is pending. IMAGING: Chest x-ray reviewed. ASSESSMENT AND PLAN: 1. Nonoliguric acute kidney injury. Etiology is secondary to ATN. Renal function has improved. A t this point, continue the current treatment plan, supportive care, renally dose all meds. 2. Bilateral hydronephrosis. Status post nephrostomy tubes. The patient was seen by urology, with recommendations to possibly replace the right nephrostomy tube. Will continue to monitor. 3. Hypernatremia. Etiology is secondary to insensible losses. Will continue free water flushes. 4. Volume overload secondary to congestive heart failure and mass effect. Continue low-dose diureti c therapy and monitor. 5. Respiratory failure. The patient is status post extubation, clinically stable. Continue to mon itor. 6. Dysphagia. Status post nasogastric tube. Continue tube feeding. 8. Coronary artery disease. Continue the current treatment plan. 9. Anemia. Continue to monitor hemoglobin and hematocrit levels. 10. Mineral bone disorder. Continue to monitor calcium and phosphorus levels. Dictated By: URIEL RAMESH/EHSAN Conf#: [id number] DID#: [id number]
[2016-09-25] MEDS ORDERED: DIGOXIN 500 MCG INJ IV ONE (08:00)
[2016-09-25] MEDS: [UNRECOGNIZED DRUG - REMARK] XX SCH (08:12)
--- NOTE | 2016-09-25 08:14 | PN ---
DATE: 09/25/2016 CARDIOLOGY FOLLOWUP PROGRESS NOTE SUBJECTIVE: Discussed with the staff. Rhythm strip was reviewed. The patient was able to be extub ated. Denies any chest pain or pressure to me. Has had NG tube placed the ICU. MEDICATIONS: Reviewed. PHYSICAL EXAMINATION: VITAL SIGNS: Temperature 98, heart rate of 120, blood pressure 111/69, respiratory rate of 26, satu rating 100%. HEENT: Normocephalic, atraumatic. Status post NG tube in place. CARDIOVASCULAR: Tachycardic. PULMONARY: With mild rhonchi. GASTROINTESTINAL: Soft. No rebound or guarding. EXTREMITIES: With diffuse lower extremity edema. NEUROLOGIC: Awake, responds appropriately. PSYCHIATRIC: Appears to be calm. Chest x-ray showed minimal atelectasis in the bilateral lower leticia gs. LABORATORY: Shows WBC of 12.8, hemoglobin 10.8, platelets of 75. Chemistry not available. Digoxin level is 0.7. ASSESSMENT AND PLAN: 1. Septic shock, currently blood pressure improved. 2. Hypoxemic respiratory failure, currently extubated now. 3. Severe cardiomyopathy, etiology unclear, probably nonischemic. 4. Electrolyte abnormalities with hypernatremia, has been improved. 5. Fluid overload, congestive heart failure, on diuretics. 6. Mildly abnormal troponin secondary to above. 7. Encephalopathy. 8. Metastatic cervical cancer. 9. Malnutrition and perforated bowel. RECOMMENDATIONS: The patient is still on bowel rest. Unable to give any p.o. medication. Continue with the IV Lasix. A dose of digoxin was given yesterday. I gave another dose today given her per sistent tachycardia. We will check electrolytes and digoxin level tomorrow. Continue with supporti ve care. Dictated By: JIM ABDI MD AV/EHSAN Conf#: [id number] DID#: [id number] CC: HAILE CHAPARRO MD;*EndCC*
[2016-09-25] MEDS: FUROSEMIDE 20 MG INJ IV SCH (08:30)
[2016-09-25] MEDS: COLLAGENASE 30 GM TUBE TOP SCH (08:31)
[2016-09-25 08:38] LABS: Allen Test ACCEPTAB; Arterial Base Excess 4.8 mmol/L (-3.0-3); Arterial COHb 0.3 % (0.0-3.0); Arterial Fraction of Oxyhgb 97.1 % (93.0-99.0); Arterial HCO3 27.8 mmol/L (22.0-26.0); Arterial MetHb 0.4 % (0.0-1.5); Arterial Total Hemglobin 8.8 g/dl (12.0-18.0); MODE NASAL CANNULA
[2016-09-25 08:46] LABS: ALBUMIN 2.3 g/dl (3.3-4.9); ALBUMIN/GLOBULIN RATIO 1.43; BILIRUBIN,INDIRECT 0.2 mg/dl (0-1.1); BILIRUBIN,TOTAL 0.2 mg/dl (0.2-1.3); CALCIUM 9.8 mg/dl (8.4-10.2); CREATININE 0.9 mg/dl (0.44-1.00); MAGNESIUM 2.1 mg/dl (1.7-2.5); TOTAL PROTEIN 3.9 g/dl (6.1-8.1)
[2016-09-25 09:06] LABS: POTASSIUM 6.6 mmol/L (3.5-5.1)
[2016-09-25 09:18] LABS: LYMPHOCYTES # 0.1 10^3/ul (0.8-2.9); MONOCYTE # 0.3 10^3/ul (0.3-0.9); NEUTROPHIL # 7.3 10^3/ul (1.6-7.5); PLATELET ESTIMATE PLT APPEAR DECREASED
--- NOTE | 2016-09-25 09:36 | PN ---
Date/Time of Note Date/Time of Note DATE: 09/25/16 TIME: 09:35 Assessment/Plan VTE Prophylaxis VTE Prophylaxis Intervention: SCD's Lines/Catheters IV Catheter Type (from Nrsg): PICC Line Central line still needed: Yes (TPN) Urinary Cath still in place: No Assessment/Plan Assessment/Plan 61 you F with stage 4 cervical cancer with mets to pelvis with resultant hydronephrosis warranting bl nephrostomy tube placement, obstruction of sigmoid colon with resultant perforatin admitted for septic shock. Also found to have LUE DVT, possible UTI, acute renal failure and acute hypoxic respiratory failure -->respiratory failure resolved. 1. Shock. Most probably underlying septic shock. resolved status post aggressive medical management, IV fluid, pressors and antibiotics Likely secondary to perforated sigmoid colon versus early pneumonia 2. Post colonoscopy perforated viscus large pelvic mass invading colon wall site of perforation, contrast leakage to pelvic area, Contained perforation as no evidence of generalized peritonitis Abx as per ID GI and gen surg following 3. History of metastatic cervical cancer. Status post radiation and chemo. Currently, getting palliative chemotherapy. Palliative care already following the patient. 4. Hypochromic anemia. Etiology unclear. Status post PRBC transfusion. Hemoglobin and hematocrit are stable Hgb stable 5. Chronic ureteral obstruction , s/p Bilateral nephrostomy tubes. Continue monitoring. 6. Acute respiratory failure. Pulmonology has been consulted, continue vent management-->EXTUBATED THIS 6.14 7. Cardiomyopathy with ejection fraction of 20%. Cardiology has been consulted 8. Possible underlying ileus. Continue p.r.n. antiemetics. abx as per ID. Gastroenterology following the patient. 9. Severe LE edema and anasarca 2/2 mass effect 10. Stage III sacral decubitus, continue wound care, repositioning as protocol Deep venous thrombosis prophylaxis. Bilateral sequential compression devices. 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 teacher Prognosis: guarded Subjective 24 Hr Interval Summary Free Text/Dictation Extubated yesterday afternoon, stable from respiratory standpoint since then on [place] Exam/Review of Systems Vital Signs Vitals Vital Signs Date Time Temp Pulse Resp B/P Pulse Ox O2 Delivery O2 Flow Rate FiO2 09/25/16 08:05 120 22 100 Nasal Cannula 2.0 09/25/16 08:00 98.8 113/79 09/24/16 13:00 30 Intake and Output 09/24/16 09/24/16 09/25/16 15:00 23:00 07:00 Intake Total 501.664 ml 486.664 ml 425.831 ml Output Total 1010 ml 510 ml 725 ml Balance -508.336 ml -23.336 ml -299.169 ml Exam nad, does not follow commands or respond to questions wearing NC no mrg abd soft bl nephrostomy tubes with urine in bags no rashes Results Result Diagram: 09/25/16 0500 09/25/16 0800 Results 24 hrs Laboratory Tests Test 09/24/16 11:16 09/24/16 11:20 09/24/16 17:12 09/25/16 00:05 Bedside Glucose 162 160 165 Blood Gas Specimen Source Blood arterial Arterial Blood Date Drawn 09/24/2016 11:00:00 AM Arterial Blood pH (Temp corrected) 7.519 H Arterial Blood pCO2 (Temp correct) 36.6 Arterial Blood pO2 (Temp corrected) 110.0 H Arterial Blood HCO3 29.1 H Arterial Blood Base Excess 5.8 H Arterial Blood Oxygen Saturation 98.0 Que Test ACCEPTAB Arterial Blood Gas Puncture Site Right Radial Arterial Blood Carboxyhemoglobin 0.4 Arterial Blood Methemoglobin 0.8 Blood Gas A-a O2 Differential 60.9 H Oxyhemoglobin Percent 96.8 Total Hemoglobin 6.8 L Blood Gas Temperature 37.0 Blood Gas Actual Respiration Rate 23 Blood Gas Modality VENT - CPAP FiO2 30.0 Blood Gas Low PEEP Setting 5.0 Blood Gas Pressure Support 10 Blood Gas Notified Whom JLD Blood Gas Notified Time 09/24/2016 11:13:00 AM Test 09/25/16 05:00 09/25/16 05:06 09/25/16 05:36 09/25/16 07:00 White Blood Count 12.8 H Red Blood Count 2.17 L Hemoglobin 10.8 #L Hematocrit 23.2 L Mean Corpuscular Volume 106.9 H Mean Corpuscular Hemoglobin 49.8 #H Mean Corpuscular Hemoglobin Concent 46.6 #H Red Cell Distribution Width 23.5 H Platelet Count 75 L Mean Platelet Volume 15.3 H Neutrophils % 57.0 Band Neutrophils % 40.0 H Lymphocytes % 1.0 L Monocytes % 2.0 Eosinophils % Nucleated Red Blood Cells % 6.0 H Neutrophils # 7.3 Lymphocytes # 0.1 L Monocytes # 0.3 Eosinophils # Platelet Estimate PLT APPEAR DECREASED Digoxin Level 0.7 L Lab Scanned Report BLOOD TRANSFUSION Bedside Glucose 176 Blood Gas Specimen Source Blood arterial Arterial Blood Date Drawn 09/25/2016 7:51:04 AM Arterial Blood pH (Temp corrected) 7.521 H Arterial Blood pCO2 (Temp correct) 34.8 L Arterial Blood pO2 (Temp corrected) 116.4 H Arterial Blood HCO3 27.8 H Arterial Blood Base Excess 4.8 H Arterial Blood Oxygen Saturation 97.8 Que Test ACCEPTAB Arterial Blood Gas Puncture Site Right Radial Arterial Blood Carboxyhemoglobin 0.3 Arterial Blood Methemoglobin 0.4 Blood Gas A-a O2 Differential 35.0 H Oxyhemoglobin Percent 97.1 Total Hemoglobin 8.8 L Blood Gas Temperature 37.0 Blood Gas Modality NASAL CANNULA FiO2 27.0 Blood Gas Notified Whom JLD Blood Gas Notified Time 09/25/2016 8:38:31 AM Test 09/25/16 08:00 Sodium Level 136 Potassium Level 6.6 #*H Chloride Level 103 Carbon Dioxide Level 23 Anion Gap 17 H Blood Urea Nitrogen 31 #H Creatinine 0.90 Glucose Level 785 #*H Calcium Level 9.8 Magnesium Level 2.1 Total Bilirubin 0.2 Direct Bilirubin 0.00 Indirect Bilirubin 0.2 Aspartate Amino Transf (AST/SGOT) 55 H Alanine Aminotransferase (ALT/SGPT) 48 Alkaline Phosphatase 420 H Total Protein 3.9 L Albumin 2.3 L Globulin 1.60 Albumin/Globulin Ratio 1.43 Medications Medications Current Medications Acetaminophen (Tylenol Tab) 650 mg Q6H PRN PO PAIN LEVEL 1-3 OR FEVER; Start at 18:30 Morphine Sulfate (morphine) 2 mg Q4H PRN IV SEVERE PAIN LEVEL 7-10 Last administered on 09/19/16t 05:41; Admin Dose 2 MG; Start 09/05/16 at 18:30 Docusate Sodium (Colace) 100 mg Q12H PRN PO CONSTIPATION; Start 09/05/16 at 18: 30 Magnesium Hydroxide (Milk Of Mag) 30 ml DAILY PRN PO CONSTIPATION; Start at 18:30 Sodium Biphosphate/ Sodium Phosphate (Fleet Enema) 133 ml DAILY PRN [place] CONSTIPATION; Start 09/05/16 at 18:30 Hydralazine HCl (Apresoline) 10 mg Q6H PRN IV ELEVATED BLOOD PRESSURE; Start at 18:30 Nitroglycerin (Nitroglycerin (Sl Tab) 0.4 Mg) 1 tab Q5M PRN SL ANGINA; Start at 18:30 Miscellaneous Information 1 ea NOTE XX ; Start 09/05/16 at 19:00 Glucose (Glutose) 15 gm Q15M PRN PO DECREASED GLUCOSE; Start 09/05/16 at 19:00 Glucose (Glutose) 22.5 gm Q15M PRN PO DECREASED GLUCOSE; Start 09/05/16 at 19: 00 Dextrose (D50w Syringe) 25 ml Q15M PRN IV DECREASED GLUCOSE; Start 09/05/16 at 19:00 Dextrose (D50w Syringe) 50 ml Q15M PRN IV DECREASED GLUCOSE; Start 09/05/16 at 19:00 Glucagon (Glucagen) 1 mg Q15M PRN IM DECREASED GLUCOSE; Start 09/05/16 at 19:00 Glucose 15 gm 15 gm Q15M PRN BUCCAL DECREASED GLUCOSE; Start 09/05/16 at 19:00 Ondansetron HCl/ Sodium Chloride (Zofran Inj/NS) 54 ml @ 216 mls/hr Q6H PRN IV NAUSEA AND/OR VOMITING Last administered on 09/07/16 17:27; Admin Dose 216 MLS/HR; Start 09/06/16 at 10:30 Pantoprazole 40 mg 40 mg BID@06,18 IV Last administered on 09/25/16 05:36; Admin Dose 40 MG; Start 09/08/16 at 18:00 Phenylephrine HCl/ Sodium Chloride (Julio-Syneph/NS) 500 ml @ 18.75 mls/ hr TITRATE IV ; Start 09/10/16 at 10:00 Miscellaneous Information PLEASE CHANGE ALL IVPB F... DAILY XX Last administered on 09/23/16 09:00; Admin Dose 1 EA; Start 09/10/16 at 08:30 Vasopressin 60 unit/Sodium Chloride 103 ml @ 0 mls/hr Q12H IVPB ; Start at 09:00; Status Future Hold Fat Emulsion Intravenous 500 ml @ 20.833 mls/ hr Q24H IV Last administered on 09/24/16 16:00; Admin Dose 20.833 MLS/HR; Start 09/11/16 at 16:00 Norepinephrine 16 mg/Sodium Chloride 500 ml @ 0 mls/hr TITRATE IV Last administered on 09/15/16 11:53; Admin Dose 3.75 MLS/HR; Start 09/11/16 at 20:31 Fentanyl (Sublimaze) 100 ml @ 5 mls/hr TITRATE IV Last administered on 17:42; Admin Dose 2.5 MLS/HR; Start 09/13/16 at 07:45 Hydrocortisone (Solu-Cortef) 50 mg Q8 IV Last administered on 09/25/16 05:37; Admin Dose 50 MG; Start 09/13/16 at 14:00 Lorazepam 1 mg 1 mg Q4 PRN IV ANXIETY Last administered on 09/20/16 05:56; Admin Dose 1 MG; Start 09/14/16 at 06:30 Midazolam HCl (Versed) 50 ml @ 1 mls/hr TITRATE IV ; Start 09/14/16 at 10:30 Insulin Aspart (Novolog Insulin Pen) NOVOLOG *MILD* ALGORI... Q6 SC Last administered on 09/25/16 05:37; Admin Dose 1 UNIT; Start 09/16/16 at 00:00 Collagenase 1 applic 1 applic DAILY TOP Last administered on 09/25/16 08:31; Admin Dose 1 APPLIC; Start 09/17/16 at 09:00 Total Parenteral Nutrition (Tpn) 1,000 ml @ 40 mls/hr Q24H IV Last administered on 09/24/16 15:59; Admin Dose 40 MLS/HR; Start 09/19/16 at 16:00 Furosemide (Lasix) 20 mg DAILY IV Last administered on 09/25/16 08:30; Admin Dose 20 MG; Start 09/23/16 at 09:00 Enalaprilat (Vasotec Iv) 0.625 mg Q8 IV Last administered on 09/24/16 08:49; Admin Dose 0.625 MG; Start 09/24/16 at 08:09 Procedures Procedures ChemP noted, dw nurse. Pt's accuchecks are in the 170s so supsect these results are spurious HAILE CHAPARRO MD Sep 25, 2016 09:36
--- NOTE | 2016-09-25 10:44 | RADRPT ---
PROCEDURE: XR Chest. CLINICAL INDICATION: Shortness of breath TECHNIQUE: A single AP view of the chest was obtained. COMPARISON: Chest x-ray dated 09/24/2016 FINDINGS: The endotracheal tube tip is approximately 5.0 cm above the sharri. The tip of the enteric tube pr ojects over the left upper quadrant. There is a left upper extremity PICC line with tip in the mid SVC. There is a right chest Port-A-Cath with tip in the mid SVC. Lung volumes are low. There are diffuse bilateral interstitial opacities. No pleural effusion or p neumothorax is seen. The cardiomediastinal silhouette is within normal limits for size. The osseou s structures are unremarkable. IMPRESSION: 1. Diffuse bilateral interstitial opacities, may reflect interstitial edema or pneumonia. Findings are increased when compared to the prior examination. 2. Tubes and lines, as described above. RPTAT: HH .Sena Arriola MD, MD Date Time Electronically viewed and signed by .Sena Arriola MD, on 09/25/2016 10:44 .G/
--- NOTE | 2016-09-25 11:09 | PN ---
DATE: 09/25/2016 SUBJECTIVE: Patient Alok was extubated yesterday following successful CPAP trial. She remains stab le post-extubation. No events overnight. Continues to have tachycardia, however, but is awake, aler t, and able to talk in full and complete sentences without accessory muscle use. PHYSICAL EXAMINATION: VITAL SIGNS: Temperature 98, pulse is 125, blood pressure 112/78, O2 saturation 99% on 2 L nasal ca nnula. NECK: Supple. No JVD or lymphadenopathy. CARDIAC: S1, S2, no added sounds or murmurs. CHEST: Diminished air entry both lung bases. ABDOMEN: Mildly distended. Diminished bowel sounds. EXTREMITIES: No cyanosis, clubbing, 1+ edema. NEUROLOGIC: Generalized weakness. LABORATORY DATA: White count 12.8, hemoglobin 10.8, platelets of 75. BUN 31, creatinine 0.9. Ivette rial blood gas pH 7.5, pCO2 of 34, PaO2 of 116, bicarbonate was 27. IMAGING: Chest x-ray shows no infiltrates or effusions. IMPRESSION AND PLAN: 1. Metastatic cervical cancer with obstruction of large bowel. 2. Status post prolonged hypoxemic respiratory failure. 3. Left upper extremity deep vein thrombosis. 4. Anemia, likely secondary to chronic disease, status post transfusion of packed red blood cells. 5. Stage III decubitus ulcer. 6. Cardiomyopathy with decreased ejection fraction. PLAN: 1. Continue nasogastric tube to suction. 2. Continue TPN. 3. Consider increasing diuresis as chest x-ray demonstrates mild pulmonary edema. 4. Continue with deep vein thrombosis GI prophylaxis. 5. Bioethics meetings today regarding the patient's condition and goals of care. Dictated By: MAYRA PECK/EHSAN Conf#: [id number] DID#: [id number]
[2016-09-25 11:16] LABS: CALCIUM 10.7 mg/dl (8.4-10.2); CREATININE 0.79 mg/dl (0.44-1.00); POTASSIUM 3.5 mmol/L (3.5-5.1)
--- NOTE | 2016-09-25 12:53 | CONS ---
Date/Time of Note Date/Time of Note DATE: 09/25/16 TIME: 12:51 Assessment/Plan Assessment/Plan Chief Complaint/Hosp Course SUBJECTIVE: S/p extubated yesterday, awake, tachycardic, no fevers, nad INDWELLINGS: NG tube, PICC line, placed 09/11/2016, right chest Port-A-Cath, B nephrostomies. PHYSICAL EXAMINATION: GENERAL: Chronically ill-appearing, elderly woman, in no distress. HEENT: Head atraumatic, normocephalic. Sclerae anicteric. Buccal mucosa dry. NECK: Supple, trachea midline. CHEST: Chest rise is symmetrical. Breath sounds diminished to the bases. HEART: S1, S2. ABDOMEN: Soft, bowel tones present. Abdomen distended. Bowel tones hypoactive. EXTREMITIES: With bilateral edema. ASSESSMENT: 1. S/p sepsis with shock and multisystem organ failure. 2. Large pelvic mass/ metastatic cervical cancer 3. Proximal sigmoid colon obstruction with perforation. 4. Urinary tract infection, per urinalysis. 5. Acute renal and respiratory failure. 6. LUE DVT with PICC present PLAN: Stable post extubation, completed abx, continue present care, card/ pulmonary rec-s==> diuresis 2 to pulmonary edema, magana cx prn DW staff Problems: Consultation Date/Type/Reason Admit Date/Time September 05, 2016 at 16:23 Initial Consult Date 09/06/16 Type of Consultation: id Referring Provider: MORIAH GARRIDO Exam/Review of Systems Vital Signs Vitals Vital Signs Date Time Temp Pulse Resp B/P Pulse Ox O2 Delivery O2 Flow Rate FiO2 09/25/16 12:00 125 09/25/16 12:00 98.5 26 121/76 100 Nasal Cannula 09/25/16 08:05 2.0 09/24/16 13:00 30 Intake and Output 09/24/16 09/24/16 09/25/16 15:00 23:00 07:00 Intake Total 501.664 ml 486.664 ml 486.664 ml Output Total 1010 ml 510 ml 725 ml Balance -508.336 ml -23.336 ml -238.336 ml Results Result Diagram: 09/25/16 0500 09/25/16 1027 Results 24 hrs Laboratory Tests Test 09/24/16 17:12 09/25/16 00:05 09/25/16 05:00 09/25/16 05:06 Bedside Glucose 160 165 White Blood Count 12.8 H Red Blood Count 2.17 L Hemoglobin 10.8 #L Hematocrit 23.2 L Mean Corpuscular Volume 106.9 H Mean Corpuscular Hemoglobin 49.8 #H Mean Corpuscular Hemoglobin Concent 46.6 #H Red Cell Distribution Width 23.5 H Platelet Count 75 L Mean Platelet Volume 15.3 H Neutrophils % 57.0 Band Neutrophils % 40.0 H Lymphocytes % 1.0 L Monocytes % 2.0 Eosinophils % Nucleated Red Blood Cells % 6.0 H Neutrophils # 7.3 Lymphocytes # 0.1 L Monocytes # 0.3 Eosinophils # Platelet Estimate PLT APPEAR DECREASED Digoxin Level 0.7 L Lab Scanned Report BLOOD TRANSFUSION Test 09/25/16 05:36 09/25/16 07:00 09/25/16 08:00 09/25/16 10:27 Bedside Glucose 176 Blood Gas Specimen Source Blood arterial Arterial Blood Date Drawn 09/25/2016 7:51:04 AM Arterial Blood pH (Temp corrected) 7.521 H Arterial Blood pCO2 (Temp correct) 34.8 L Arterial Blood pO2 (Temp corrected) 116.4 H Arterial Blood HCO3 27.8 H Arterial Blood Base Excess 4.8 H Arterial Blood Oxygen Saturation 97.8 Que Test ACCEPTAB Arterial Blood Gas Puncture Site Right Radial Arterial Blood Carboxyhemoglobin 0.3 Arterial Blood Methemoglobin 0.4 Blood Gas A-a O2 Differential 35.0 H Oxyhemoglobin Percent 97.1 Total Hemoglobin 8.8 L Blood Gas Temperature 37.0 Blood Gas Modality NASAL CANNULA FiO2 27.0 Blood Gas Notified Whom JLD Blood Gas Notified Time 09/25/2016 8:38:31 AM Sodium Level 136 147 H Potassium Level 6.6 #*H 3.5 # Chloride Level 103 112 H Carbon Dioxide Level 23 29 Anion Gap 17 H 10 # Blood Urea Nitrogen 31 #H 39 H Creatinine 0.90 0.79 Glucose Level 785 #*H 143 # Calcium Level 9.8 10.7 H Magnesium Level 2.1 Total Bilirubin 0.2 Direct Bilirubin 0.00 Indirect Bilirubin 0.2 Aspartate Amino Transf (AST/SGOT) 55 H Alanine Aminotransferase (ALT/SGPT) 48 Alkaline Phosphatase 420 H Total Protein 3.9 L Albumin 2.3 L Globulin 1.60 Albumin/Globulin Ratio 1.43 Test 09/25/16 12:34 Bedside Glucose 159 Medications Medications Current Medications Acetaminophen (Tylenol Tab) 650 mg Q6H PRN PO PAIN LEVEL 1-3 OR FEVER; Start at 18:30 Morphine Sulfate (morphine) 2 mg Q4H PRN IV SEVERE PAIN LEVEL 7-10 Last administered on 09/19/16 05:41; Admin Dose 2 MG; Start 09/05/16 at 18:30 Docusate Sodium (Colace) 100 mg Q12H PRN PO CONSTIPATION; Start 09/05/16 at 18: 30 Magnesium Hydroxide (Milk Of Mag) 30 ml DAILY PRN PO CONSTIPATION; Start at 18:30 Sodium Biphosphate/ Sodium Phosphate (Fleet Enema) 133 ml DAILY PRN [place] CONSTIPATION; Start 09/05/16 at 18:30 Hydralazine HCl (Apresoline) 10 mg Q6H PRN IV ELEVATED BLOOD PRESSURE; Start at 18:30 Nitroglycerin (Nitroglycerin (Sl Tab) 0.4 Mg) 1 tab Q5M PRN SL ANGINA; Start at 18:30 Miscellaneous Information 1 ea NOTE XX ; Start 09/05/16 at 19:00 Glucose (Glutose) 15 gm Q15M PRN PO DECREASED GLUCOSE; Start 09/05/16 at 19:00 Glucose (Glutose) 22.5 gm Q15M PRN PO DECREASED GLUCOSE; Start 09/05/16 at 19: 00 Dextrose (D50w Syringe) 25 ml Q15M PRN IV DECREASED GLUCOSE; Start 09/05/16 at 19:00 Dextrose (D50w Syringe) 50 ml Q15M PRN IV DECREASED GLUCOSE; Start 09/05/16 at 19:00 Glucagon (Glucagen) 1 mg Q15M PRN IM DECREASED GLUCOSE; Start 09/05/16 at 19:00 Glucose 15 gm 15 gm Q15M PRN BUCCAL DECREASED GLUCOSE; Start 09/05/16 at 19:00 Ondansetron HCl/ Sodium Chloride (Zofran Inj/NS) 54 ml @ 216 mls/hr Q6H PRN IV NAUSEA AND/OR VOMITING Last administered on 09/07/16 17:27; Admin Dose 216 MLS/HR; Start 09/06/16 at 10:30 Pantoprazole 40 mg 40 mg BID@06,18 IV Last administered on 09/25/16 05:36; Admin Dose 40 MG; Start 09/08/16 at 18:00 Phenylephrine HCl/ Sodium Chloride (Julio-Syneph/NS) 500 ml @ 18.75 mls/ hr TITRATE IV ; Start 09/10/16 at 10:00 Miscellaneous Information PLEASE CHANGE ALL IVPB F... DAILY XX Last administered on 09/23/16 09:00; Admin Dose 1 EA; Start 09/10/16 at 08:30 Vasopressin 60 unit/Sodium Chloride 103 ml @ 0 mls/hr Q12H IVPB ; Start at 09:00; Status Future Hold Fat Emulsion Intravenous 500 ml @ 20.833 mls/ hr Q24H IV Last administered on 09/24/16 16:00; Admin Dose 20.833 MLS/HR; Start 09/11/16 at 16:00 Norepinephrine 16 mg/Sodium Chloride 500 ml @ 0 mls/hr TITRATE IV Last administered on 09/15/16 11:53; Admin Dose 3.75 MLS/HR; Start 09/11/16 at 20:31 Fentanyl (Sublimaze) 100 ml @ 5 mls/hr TITRATE IV Last administered on 17:42; Admin Dose 2.5 MLS/HR; Start 09/13/16 at 07:45 Hydrocortisone (Solu-Cortef) 50 mg Q8 IV Last administered on 09/25/16 05:37; Admin Dose 50 MG; Start 09/13/16 at 14:00 Lorazepam 1 mg 1 mg Q4 PRN IV ANXIETY Last administered on 09/20/16 05:56; Admin Dose 1 MG; Start 09/14/16 at 06:30 Midazolam HCl (Versed) 50 ml @ 1 mls/hr TITRATE IV ; Start 09/14/16 at 10:30 Insulin Aspart (Novolog Insulin Pen) NOVOLOG *MILD* ALGORI... Q6 SC Last administered on 09/25/16 12:36; Admin Dose 1 UNIT; Start 09/16/16 at 00:00 Collagenase 1 applic 1 applic DAILY TOP Last administered on 09/25/16 08:31; Admin Dose 1 APPLIC; Start 09/17/16 at 09:00 Total Parenteral Nutrition (Tpn) 1,000 ml @ 40 mls/hr Q24H IV Last administered on 09/24/16 15:59; Admin Dose 40 MLS/HR; Start 09/19/16 at 16:00 Furosemide (Lasix) 20 mg DAILY IV Last administered on 09/25/16 08:30; Admin Dose 20 MG; Start 09/23/16 at 09:00 Enalaprilat (Vasotec Iv) 0.625 mg Q8 IV Last administered on 09/24/16 08:49; Admin Dose 0.625 MG; Start 09/24/16 at 08:09 BIN MITTAL NP Sep 25, 2016 12:53
[2016-09-25] MEDS ORDERED: DIATR MEGLU/DIATRIZOATE SODIUM 120 ML BTL ONE (14:47)
--- NOTE | 2016-09-25 16:40 | PN ---
Date/Time of Note Date/Time of Note DATE: 09/25/16 TIME: 16:36 Assessment/Plan VTE Prophylaxis VTE Prophylaxis Intervention: contraindicated Lines/Catheters IV Catheter Type (from Nrs): PICC Line Central line still needed: Yes Urinary Cath still in place: No (BILATERAL NEPHROSTOMY TUBES IN PLACE) Assessment/Plan Assessment/Plan Anemia/no overt GI bleeding Rule out intra-abdominal bleeding versus hemolysis versus GI bleeding with slow transit Post colonoscopy perforated viscus * Large pelvic mass invading colon wall site of perforation * Contrast leakage to pelvic area * ?Contained perforation as no evidence of generalized peritonitis Sepsis Metastatic cervical CA/Adrenal/brain History of cervical cancer S/P nephrostomy tube bilateral EF 20% Plan continue present management await small bowel follow through Further orders will depend on clinical course Case was discussed with Dr Durant Subjective 24 Hr Interval Summary Free Text/Dictation * Course reviewed with RN * patient seen and examined * still on TPN * awaiting small bowel follow through Exam/Review of Systems Vital Signs Vitals Vital Signs Date Time Temp Pulse Resp B/P Pulse Ox O2 Delivery O2 Flow Rate FiO2 09/25/16 14:08 98 2.0 09/25/16 14:08 118 26 Nasal Cannula 09/25/16 14:00 92/51 09/25/16 12:00 98.5 09/24/16 13:00 30 Intake and Output 09/24/16 09/24/16 09/25/16 15:00 23:00 07:00 Intake Total 501.664 ml 486.664 ml 486.664 ml Output Total 1010 ml 510 ml 725 ml Balance -508.336 ml -23.336 ml -238.336 ml Exam Constitutional: alert, frail Neck: non-tender, supple Respiratory: diminished breath sounds, normal air movement Cardiovascular: nl pulses, regular rate and rhythm Gastrointestinal: bowel sounds, distended, mass, non-tender, No rebound or guarding Genitourinary - Female: other (nephrostomy bilateral) Musculoskeletal: muscle weakness Extremities: edema Skin: rash or lesions Results Result Diagram: 09/25/16 0500 09/25/16 1027 Results 24 hrs Laboratory Tests Test 09/24/16 17:12 09/25/16 00:05 09/25/16 05:00 09/25/16 05:06 Bedside Glucose 160 165 White Blood Count 12.8 H Red Blood Count 2.17 L Hemoglobin 10.8 #L Hematocrit 23.2 L Mean Corpuscular Volume 106.9 H Mean Corpuscular Hemoglobin 49.8 #H Mean Corpuscular Hemoglobin Concent 46.6 #H Red Cell Distribution Width 23.5 H Platelet Count 75 L Mean Platelet Volume 15.3 H Neutrophils % 57.0 Band Neutrophils % 40.0 H Lymphocytes % 1.0 L Monocytes % 2.0 Eosinophils % Nucleated Red Blood Cells % 6.0 H Neutrophils # 7.3 Lymphocytes # 0.1 L Monocytes # 0.3 Eosinophils # Platelet Estimate PLT APPEAR DECREASED Digoxin Level 0.7 L Lab Scanned Report BLOOD TRANSFUSION Test 09/25/16 05:36 09/25/16 07:00 09/25/16 08:00 09/25/16 10:27 Bedside Glucose 176 Blood Gas Specimen Source Blood arterial Arterial Blood Date Drawn 09/25/2016 7:51:04 AM Arterial Blood pH (Temp corrected) 7.521 H Arterial Blood pCO2 (Temp correct) 34.8 L Arterial Blood pO2 (Temp corrected) 116.4 H Arterial Blood HCO3 27.8 H Arterial Blood Base Excess 4.8 H Arterial Blood Oxygen Saturation 97.8 Que Test ACCEPTAB Arterial Blood Gas Puncture Site Right Radial Arterial Blood Carboxyhemoglobin 0.3 Arterial Blood Methemoglobin 0.4 Blood Gas A-a O2 Differential 35.0 H Oxyhemoglobin Percent 97.1 Total Hemoglobin 8.8 L Blood Gas Temperature 37.0 Blood Gas Modality NASAL CANNULA FiO2 27.0 Blood Gas Notified Whom JLD Blood Gas Notified Time 09/25/2016 8:38:31 AM Sodium Level 136 147 H Potassium Level 6.6 #*H 3.5 # Chloride Level 103 112 H Carbon Dioxide Level 23 29 Anion Gap 17 H 10 # Blood Urea Nitrogen 31 #H 39 H Creatinine 0.90 0.79 Glucose Level 785 #*H 143 # Calcium Level 9.8 10.7 H Magnesium Level 2.1 Total Bilirubin 0.2 Direct Bilirubin 0.00 Indirect Bilirubin 0.2 Aspartate Amino Transf (AST/SGOT) 55 H Alanine Aminotransferase (ALT/SGPT) 48 Alkaline Phosphatase 420 H Total Protein 3.9 L Albumin 2.3 L Globulin 1.60 Albumin/Globulin Ratio 1.43 Test 09/25/16 12:34 Bedside Glucose 159 Medications Medications Current Medications Acetaminophen (Tylenol Tab) 650 mg Q6H PRN PO PAIN LEVEL 1-3 OR FEVER; Start at 18:30 Morphine Sulfate (morphine) 2 mg Q4H PRN IV SEVERE PAIN LEVEL 7-10 Last administered on 09/19/16 05:41; Admin Dose 2 MG; Start 09/05/16 at 18:30 Docusate Sodium (Colace) 100 mg Q12H PRN PO CONSTIPATION; Start 09/05/16 at 18: 30 Magnesium Hydroxide (Milk Of Mag) 30 ml DAILY PRN PO CONSTIPATION; Start at 18:30 Sodium Biphosphate/ Sodium Phosphate (Fleet Enema) 133 ml DAILY PRN [place] CONSTIPATION; Start 09/05/16 at 18:30 Hydralazine HCl (Apresoline) 10 mg Q6H PRN IV ELEVATED BLOOD PRESSURE; Start at 18:30 Nitroglycerin (Nitroglycerin (Sl Tab) 0.4 Mg) 1 tab Q5M PRN SL ANGINA; Start at 18:30 Miscellaneous Information 1 ea NOTE XX ; Start 09/05/16 at 19:00 Glucose (Glutose) 15 gm Q15M PRN PO DECREASED GLUCOSE; Start 09/05/16 at 19:00 Glucose (Glutose) 22.5 gm Q15M PRN PO DECREASED GLUCOSE; Start 09/05/16 at 19: 00 Dextrose (D50w Syringe) 25 ml Q15M PRN IV DECREASED GLUCOSE; Start 09/05/16 at 19:00 Dextrose (D50w Syringe) 50 ml Q15M PRN IV DECREASED GLUCOSE; Start 09/05/16 at 19:00 Glucagon (Glucagen) 1 mg Q15M PRN IM DECREASED GLUCOSE; Start 09/05/16 at 19:00 Glucose 15 gm 15 gm Q15M PRN BUCCAL DECREASED GLUCOSE; Start 09/05/16 at 19:00 Ondansetron HCl/ Sodium Chloride (Zofran Inj/NS) 54 ml @ 216 mls/hr Q6H PRN IV NAUSEA AND/OR VOMITING Last administered on 09/07/16 17:27; Admin Dose 216 MLS/HR; Start 09/06/16 at 10:30 Pantoprazole 40 mg 40 mg BID@06,18 IV Last administered on 09/25/16 05:36; Admin Dose 40 MG; Start 09/08/16 at 18:00 Phenylephrine HCl/ Sodium Chloride (Julio-Syneph/NS) 500 ml @ 18.75 mls/ hr TITRATE IV ; Start 09/10/16 at 10:00 Miscellaneous Information PLEASE CHANGE ALL IVPB F... DAILY XX Last administered on 09/23/16 09:00; Admin Dose 1 EA; Start 09/10/16 at 08:30 Vasopressin 60 unit/Sodium Chloride 103 ml @ 0 mls/hr Q12H IVPB ; Start at 09:00; Status Future Hold Fat Emulsion Intravenous 500 ml @ 20.833 mls/ hr Q24H IV Last administered on 09/24/16 16:00; Admin Dose 20.833 MLS/HR; Start 09/11/16 at 16:00 Norepinephrine 16 mg/Sodium Chloride 500 ml @ 0 mls/hr TITRATE IV Last administered on 09/15/16 11:53; Admin Dose 3.75 MLS/HR; Start 09/11/16 at 20:31 Fentanyl (Sublimaze) 100 ml @ 5 mls/hr TITRATE IV Last administered on 17:42; Admin Dose 2.5 MLS/HR; Start 09/13/16 at 07:45 Hydrocortisone (Solu-Cortef) 50 mg Q8 IV Last administered on 09/25/16 13:32; Admin Dose 50 MG; Start 09/13/16 at 14:00 Lorazepam 1 mg 1 mg Q4 PRN IV ANXIETY Last administered on 09/20/16 05:56; Admin Dose 1 MG; Start 09/14/16 at 06:30 Midazolam HCl (Versed) 50 ml @ 1 mls/hr TITRATE IV ; Start 09/14/16 at 10:30 Insulin Aspart (Novolog Insulin Pen) NOVOLOG *MILD* ALGORI... Q6 SC Last administered on 09/25/16 12:36; Admin Dose 1 UNIT; Start 09/16/16 at 00:00 Collagenase 1 applic 1 applic DAILY TOP Last administered on 09/25/16 08:31; Admin Dose 1 APPLIC; Start 09/17/16 at 09:00 Total Parenteral Nutrition (Tpn) 1,000 ml @ 40 mls/hr Q24H IV Last administered on 09/24/16 15:59; Admin Dose 40 MLS/HR; Start 09/19/16 at 16:00 Furosemide (Lasix) 20 mg DAILY IV Last administered on 09/25/16 08:30; Admin Dose 20 MG; Start 09/23/16 at 09:00 Enalaprilat (Vasotec Iv) 0.625 mg Q8 IV Last administered on 09/25/16 13:32; Admin Dose 0.625 MG; Start 09/24/16 at 08:09 [place] DE LEON NP Sep 25, 2016 16:40
[2016-09-25] MEDS: FAT EMULSION 20% 500 ML IV SCH (17:20)
[2016-09-25] MEDS: TPN 1,000 ML IV SCH (17:21)
[2016-09-25] MEDS ORDERED: VITAMIN A & D 5 GM OINT PACKET TOP ONE (21:41)
[2016-09-26] VITALS (50 sets, daily range): BP systolic 52–136; BP diastolic 16–111; PULSE 106–144; RESP 15–46
[2016-09-26] MEDS: INSULIN ASPART [NOVOLOG] 3 ML PEN SC SCH ×6 (01:02→23:33)
[2016-09-26] MEDS: ALBUTEROL/IPRATROPIUM (NEB) 3 ML AMP HHN SCH ×4 (02:03→20:03)
[2016-09-26] MEDS: ENALAPRILAT 1.25 MG INJ IV SCH ×3 (05:12→21:32)
[2016-09-26] MEDS: PANTOPRAZOLE 40 MG INJ IV SCH ×2 (06:05→17:23)
[2016-09-26] MEDS: HYDROCORTISONE 100 MG INJ IV SCH ×3 (06:05→21:32)
[2016-09-26 07:07] LABS: ADD SCAN DIFF NO
[2016-09-26 07:24] LABS: ABNORMAL IP MESSAGE 1; HEMATOCRIT 32.9 % (37.0-47.0); HEMOGLOBIN 10.2 g/dl (12.0-16.0); MEAN CORPUSCULAR HEMOGLOBIN 31.7 pg (29.0-33.0); MEAN CORPUSCULAR VOLUME 102.2 fl (82.0-101.0); MEAN PLATELET VOLUME 14.4 fl (7.4-10.4); PLATELET COUNT 96 10^3/UL (140-415); RED BLOOD COUNT 3.22 10^6/ul (4.20-5.40); RED CELL DISTRIBUTION WIDTH 23.5 % (11.5-14.5); WHITE BLOOD COUNT 14.2 10^3/ul (4.8-10.8)
[2016-09-26 07:54] LABS: MAGNESIUM 2.3 mg/dl (1.7-2.5); PHOSPHORUS 3.5 mg/dl (2.5-4.9)
[2016-09-26 08:18] LABS: LYMPHOCYTES # 0.3 10^3/ul (0.8-2.9); MONOCYTE # 0.7 10^3/ul (0.3-0.9); NEUTROPHIL # 10.8 10^3/ul (1.6-7.5)
[2016-09-26 08:19] LABS: ANISOCYTOSIS 1+; POLYCHROMASIA 1+
[2016-09-26 08:24] LABS: ALBUMIN 2.9 g/dl (3.3-4.9); ALBUMIN/GLOBULIN RATIO 1.2; BILIRUBIN,DIRECT 0.2 mg/dl (0.00-0.20); BILIRUBIN,INDIRECT 0.3 mg/dl (0-1.1); BILIRUBIN,TOTAL 0.5 mg/dl (0.2-1.3); CALCIUM 11.6 mg/dl (8.4-10.2); CREATININE 0.77 mg/dl (0.44-1.00); POTASSIUM 3.7 mmol/L (3.5-5.1); TOTAL PROTEIN 5.3 g/dl (6.1-8.1)
[2016-09-26] MEDS: FUROSEMIDE 20 MG INJ IV SCH (09:00)
--- NOTE | 2016-09-26 09:04 | PN ---
DATE: 09/26/2016 SUBJECTIVE: The patient was transferred from the intensive care unit to telemetry. No other acute events overnight. OBJECTIVE: VITAL SIGNS: Blood pressure is 102/53, respirations 20, pulse 123, temperature 98.2. HEENT: Head is normocephalic. NECK: Supple. HEART: Regular rate. LUNGS: Showed diminished breath sounds at the base. ABDOMEN: Soft, nontender to palpation. No rebound or guarding. EXTREMITIES: Negative for clubbing or cyanosis. Positive edema. DERMATOLOGIC: No rashes. MUSCULOSKELETAL: Have no joint effusion. NEUROLOGIC: No change in exam. MEDICATIONS: The patient's medication were reviewed. LABORATORY DATA: Shows sodium 151, potassium 3.7, BUN 42, creatinine 0.77. White count 14.2, hemog lobin 10.2, hematocrit 32.9, platelet count is 96. X-ray was reviewed. ASSESSMENT AND PLAN: 1. Nonoliguric acute kidney injury. Etiology is secondary to acute tubular necrosis. Renal functi on has improved. The patient does have underlying azotemia. This may be multifactorial due to hype rcatabolic state and diuretic therapy. At this point continue to monitor closely. 2. Bilateral hydronephrosis. Status post nephrostomy tubes. Continue to monitor. Urology has tan luated the patient. 3. Hypernatremia. Etiology is secondary to insensible losses. Will start the patient on D5W at 50 mL an hour. Continue to adjust hypertonic fluids per pharmacy. 4. Volume overload/congestive heart failure and mass effect. Continue low dose diuretic therapy. 5. Respiratory failure. Status post extubation. Clinically stable. Continue to monitor. 6. Dysphagia. The patient is currently on TPN. Continue to monitor. 7. Coronary artery disease. Continue the current treatment plan. 8. Anemia. Continue to monitor hemoglobin and hematocrit levels. 9. Mineral bone disorder. The patient is hypercalcemic. This may be due to immobilization or from metastatic disease. Continue to monitor. Consider bisphosphonate. 10. Metastatic cancer. The patient is status post radiation and chemotherapy, getting palliative c hemotherapy at this time. Continue to monitor. 11. Perforated viscus secondary to colonoscopy. No plans for surgical intervention at this time. Will continue to observe. 12. Status post shock. Dictated By: URIEL RAMESH/EHSAN Conf#: [id number] [facility]#: [id number]
[2016-09-26] MEDS: COLLAGENASE 30 GM TUBE TOP SCH (09:54)
[2016-09-26] MEDS ORDERED: SOD CHLORIDE 0.9% 1,000 ML IV ONE (10:00)
[2016-09-26] MEDS ORDERED: VANCOMYCIN IV PER PHARMACY XX SCH (10:30)
--- NOTE | 2016-09-26 10:31 | RADRPT ---
PROCEDURE: XR Chest 1 View. CLINICAL INDICATION: Shortness of breath. TECHNIQUE: AP view of the chest was obtained. COMPARISON: Yesterday. FINDINGS: The heart size is within normal limits. Calcified atherosclerosis is noted in the aorta. Nasogastri c tube is stable and has its distal end in the expected location of the stomach. Right-sided chest port is unchanged. Left-sided PICC line is stable. The lungs are hypoinflated. Elevation of the l eft hemidiaphragm is observed. Patchy infiltrates in the left lower lobe are similar to prior exam, given differences in technique. Patchy infiltrates in the medial right lower lobe are stable. Mil d interstitial prominence in both lungs appears stable. Osseous structures are unchanged. IMPRESSION: Calcified atherosclerosis in the aorta. Hypoinflated lungs with elevation of the left hemidiaphragm. Stable patchy infiltrates in the bilateral lower lobes. Stable interstitial prominence in both lungs. Interstitial prominence may be chronic. RPTAT: AA .Akbar Tripp MD, Date Time Electronically viewed and signed by .Akbar Tripp MD, MD on 09/26/2016 10:31 .P/
--- NOTE | 2016-09-26 10:47 | CONS ---
Date/Time of Note Date/Time of Note DATE: 09/26/16 TIME: 10:45 Consult Date/Type/Reason Admit Date/Time September 05, 2016 at 16:23 Initial Consult Date 09/06/16 Type of Consultation: id Ordering Provider: MORIAH GARRIDO Subjective Family invited to Bioethics , I have chosen to present but not stay in the meeting with the family and have a fresh perspective from the members. Objective Vital Signs Date Time Temp Pulse Resp B/P Pulse Ox O2 Delivery O2 Flow Rate FiO2 09/26/16 08:48 131 09/26/16 08:09 98.2 20 102/53 98 09/26/16 02:08 2.0 09/26/16 02:04 Nasal Cannula 09/24/16 13:00 30 Intake and Output 09/25/16 09/25/16 09/26/16 14:59 22:59 06:59 Intake Total 425.831 ml 243.332 ml 0 ml Output Total 950 ml 910 ml 700 ml Balance -524.169 ml -666.668 ml -700 ml Results/Medications Result Diagram: 09/26/16 0520 09/26/16 0520 Results 24 hrs Laboratory Tests Test 09/25/16 12:34 09/25/16 17:19 09/26/16 00:57 09/26/16 05:20 Bedside Glucose 159 130 149 White Blood Count 14.2 H Red Blood Count 3.22 #L Hemoglobin 10.2 L Hematocrit 32.9 #L Mean Corpuscular Volume 102.2 H Mean Corpuscular Hemoglobin 31.7 # Mean Corpuscular Hemoglobin Concent 31.0 #L Red Cell Distribution Width 23.5 H Platelet Count 96 #L Mean Platelet Volume 14.4 H Neutrophils % 76.0 Band Neutrophils % 16.0 H Lymphocytes % 2.0 L Monocytes % 5.0 Eosinophils % Promyelocytes % 1.0 H Nucleated Red Blood Cells % 5.0 H Neutrophils # 10.8 H Lymphocytes # 0.3 L Monocytes # 0.7 Eosinophils # Promyelocytes # 0.1 Polychromasia 1+ Anisocytosis 1+ Macrocytosis 1+ Sodium Level 151 H Potassium Level 3.7 Chloride Level 114 H Carbon Dioxide Level 29 Anion Gap 12 Blood Urea Nitrogen 42 H Creatinine 0.77 Glucose Level 103 # Calcium Level 11.6 H Phosphorus Level 3.5 Magnesium Level 2.3 Total Bilirubin 0.5 Direct Bilirubin 0.20 # Indirect Bilirubin 0.3 Aspartate Amino Transf (AST/SGOT) 64 H Alanine Aminotransferase (ALT/SGPT) 60 Alkaline Phosphatase 857 #H B-Type Natriuretic Peptide 26268 H Total Protein 5.3 #L Albumin 2.9 L Globulin 2.40 Albumin/Globulin Ratio 1.20 Parathyroid Hormone (Intact) Digoxin Level 0.8 L Test 09/26/16 06:07 09/26/16 09:37 Bedside Glucose 124 119 Medications Current Medications Acetaminophen (Tylenol Tab) 650 mg Q6H PRN PO PAIN LEVEL 1-3 OR FEVER; Start at 18:30 Morphine Sulfate (morphine) 2 mg Q4H PRN IV SEVERE PAIN LEVEL 7-10 Last administered on 09/19/16t 05:41; Admin Dose 2 MG; Start 09/05/16 at 18:30 Docusate Sodium (Colace) 100 mg Q12H PRN PO CONSTIPATION; Start 09/05/16 at 18: 30 Magnesium Hydroxide (Milk Of Mag) 30 ml DAILY PRN PO CONSTIPATION; Start at 18:30 Sodium Biphosphate/ Sodium Phosphate (Fleet Enema) 133 ml DAILY PRN [place] CONSTIPATION; Start 09/05/16 at 18:30 Hydralazine HCl (Apresoline) 10 mg Q6H PRN IV ELEVATED BLOOD PRESSURE; Start at 18:30 Nitroglycerin (Nitroglycerin (Sl Tab) 0.4 Mg) 1 tab Q5M PRN SL ANGINA; Start at 18:30 Miscellaneous Information 1 ea NOTE XX ; Start 09/05/16 at 19:00 Glucose (Glutose) 15 gm Q15M PRN PO DECREASED GLUCOSE; Start 09/05/16 at 19:00 Glucose (Glutose) 22.5 gm Q15M PRN PO DECREASED GLUCOSE; Start 09/05/16 at 19: 00 Dextrose (D50w Syringe) 25 ml Q15M PRN IV DECREASED GLUCOSE; Start 09/05/16 at 19:00 Dextrose (D50w Syringe) 50 ml Q15M PRN IV DECREASED GLUCOSE; Start 09/05/16 at 19:00 Glucagon (Glucagen) 1 mg Q15M PRN IM DECREASED GLUCOSE; Start 09/05/16 at 19:00 Glucose 15 gm 15 gm Q15M PRN BUCCAL DECREASED GLUCOSE; Start 09/05/16 at 19:00 Ondansetron HCl/ Sodium Chloride (Zofran Inj/NS) 54 ml @ 216 mls/hr Q6H PRN IV NAUSEA AND/OR VOMITING Last administered on 09/07/16 17:27; Admin Dose 216 MLS/HR; Start 09/06/16 at 10:30 Pantoprazole 40 mg 40 mg BID@06,18 IV Last administered on 09/26/16 06:05; Admin Dose 40 MG; Start 09/08/16 at 18:00 Fat Emulsion Intravenous (Liposyn Ii 20%) 500 ml @ 20.833 mls/ hr Q24H IV Last administered on 09/25/16 17:20; Admin Dose 20.833 MLS/HR; Start 09/11/16 at 16:00 Hydrocortisone (Solu-Cortef) 50 mg Q8 IV Last administered on 09/26/16 06:05; Admin Dose 50 MG; Start 09/13/16 at 14:00 Lorazepam (Ativan) 1 mg Q4 PRN IV ANXIETY Last administered on 09/20/16 05:56 ; Admin Dose 1 MG; Start 09/14/16 at 06:30 Insulin Aspart (Novolog Insulin Pen) NOVOLOG *MILD* ALGORI... Q6 SC Last administered on 09/26/16 01:02; Admin Dose 1 UNIT; Start 09/16/16 at 00:00 Collagenase 1 applic 1 applic DAILY TOP Last administered on 09/26/16 09:54; Admin Dose 1 APPLIC; Start 09/17/16 at 09:00 Total Parenteral Nutrition (Tpn) 1,000 ml @ 40 mls/hr Q24H IV Last administered on 09/25/16 17:21; Admin Dose 40 MLS/HR; Start 09/19/16 at 16:00 Furosemide (Lasix) 20 mg DAILY IV Last administered on 09/25/16 08:30; Admin Dose 20 MG; Start 09/23/16 at 09:00 Enalaprilat 0.625 mg 0.625 mg Q8 IV Last administered on 09/25/16 13:32; Admin Dose 0.625 MG; Start 09/24/16 at 08:09 Dextrose 1,000 ml @ 50 mls/hr Q20H IV ; Start 09/26/16 at 09:00 Sodium Chloride 1,000 ml @ 1,000 mls/hr Q1H ONCE IV Last administered on t 09:54; Admin Dose 1,000 MLS/HR; Start 09/26/16 at 10:00; Stop 09/26/16 at 10:59 Meropenem 100 ml @ 200 mls/hr Q8 IVPB ; Start 09/26/16 at 14:00; Status UNV Fluconazole/ Sodium Chloride (Diflucan 100 Mg/ NS (Pmx)) 50 ml @ 50 mls/hr Q24H IVPB ; Start 09/26/16 at 10:30; Status UNV Assessment/Plan Chief Complaint/Hosp Course Continue to follow while in house and support family Problems: MORIAH GARRIDO Sep 26, 2016 10:47
[2016-09-26] MEDS ORDERED: NORepinephrine 8MG/250 ML (PMX 250 ML IV SCH (11:00)
[2016-09-26] MEDS ORDERED: VANCOMYCIN 1 GM (PMX) 250 ML IVPB ONE (11:00)
[2016-09-26] MEDS: morphine 2 MG INJ IV PRN ×2 (12:02→17:06)
[2016-09-26] MEDS: DEXTROSE 5% 1,000 ML IV SCH (12:03)
[2016-09-26] MEDS ORDERED: PHENYLephrine 40 MG in DEXTROSE 5% 496 ML IV SCH (12:30)
[2016-09-26] MEDS ORDERED: PHENYLephrine 20MG IN 250 ML 250 ML ONE ×2 (12:53→23:46)
[2016-09-26] MEDS: FLUCONAZOLE 100 MG/NS (PMX) 50 ML IVPB SCH (13:19)
--- NOTE | 2016-09-26 13:31 | PN ---
Date/Time of Note Date/Time of Note DATE: 09/26/16 TIME: 13:28 Assessment/Plan VTE Prophylaxis VTE Prophylaxis Intervention: contraindicated Lines/Catheters IV Catheter Type (from Nrs): PICC Line Central line still needed: Yes Urinary Cath still in place: No (Bilateral nephrostomy tubes) Assessment/Plan Assessment/Plan Hypotension Anemia/no overt GI bleeding Rule out intra-abdominal bleeding versus hemolysis versus GI bleeding with slow transit Post colonoscopy perforated viscus * Large pelvic mass invading colon wall site of perforation * Contrast leakage to pelvic area * ?Contained perforation as no evidence of generalized peritonitis Sepsis Metastatic cervical CA/Adrenal/brain History of cervical cancer S/P nephrostomy tube bilateral EF 20% Plan Pressor support continue present management await small bowel follow through Further orders will depend on clinical course Case was discussed with Dr Durant Subjective 24 Hr Interval Summary Free Text/Dictation * Course reviewed with RN * Patient seen and examined * Patient back in ICU because of hypotension Exam/Review of Systems Vital Signs Vitals Vital Signs Date Time Temp Pulse Resp B/P Pulse Ox O2 Delivery O2 Flow Rate FiO2 09/26/16 12:28 143 09/26/16 08:09 98.2 20 102/53 98 09/26/16 08:00 Nasal Cannula 1.0 09/24/16 13:00 30 Intake and Output 09/25/16 09/25/16 09/26/16 15:00 23:00 07:00 Intake Total 425.831 ml 182.499 ml 0 ml Output Total 950 ml 910 ml 700 ml Balance -524.169 ml -727.501 ml -700 ml Exam Constitutional: alert, frail Head: atraumatic, normocephalic Eyes: nl sclera Neck: non-tender, supple Respiratory: diminished breath sounds, normal air movement Cardiovascular: other (tachycardic) Gastrointestinal: distended, firm, mass Genitourinary - Female: other (neprostomy tube bilateral) Results Result Diagram: 09/26/16 0520 09/26/16 0520 Results 24 hrs Laboratory Tests Test 09/25/16 17:19 09/26/16 00:57 09/26/16 05:20 09/26/16 06:07 Bedside Glucose 130 149 124 White Blood Count 14.2 H Red Blood Count 3.22 #L Hemoglobin 10.2 L Hematocrit 32.9 #L Mean Corpuscular Volume 102.2 H Mean Corpuscular Hemoglobin 31.7 # Mean Corpuscular Hemoglobin Concent 31.0 #L Red Cell Distribution Width 23.5 H Platelet Count 96 #L Mean Platelet Volume 14.4 H Neutrophils % 76.0 Band Neutrophils % 16.0 H Lymphocytes % 2.0 L Monocytes % 5.0 Eosinophils % Promyelocytes % 1.0 H Nucleated Red Blood Cells % 5.0 H Neutrophils # 10.8 H Lymphocytes # 0.3 L Monocytes # 0.7 Eosinophils # Promyelocytes # 0.1 Polychromasia 1+ Anisocytosis 1+ Macrocytosis 1+ Sodium Level 151 H Potassium Level 3.7 Chloride Level 114 H Carbon Dioxide Level 29 Anion Gap 12 Blood Urea Nitrogen 42 H Creatinine 0.77 Glucose Level 103 # Calcium Level 11.6 H Phosphorus Level 3.5 Magnesium Level 2.3 Total Bilirubin 0.5 Direct Bilirubin 0.20 # Indirect Bilirubin 0.3 Aspartate Amino Transf (AST/SGOT) 64 H Alanine Aminotransferase (ALT/SGPT) 60 Alkaline Phosphatase 857 #H B-Type Natriuretic Peptide 21212 H Total Protein 5.3 #L Albumin 2.9 L Globulin 2.40 Albumin/Globulin Ratio 1.20 Parathyroid Hormone (Intact) Digoxin Level 0.8 L Test 09/26/16 09:37 09/26/16 12:26 Bedside Glucose 119 92 Medications Medications Current Medications Acetaminophen (Tylenol Tab) 650 mg Q6H PRN PO PAIN LEVEL 1-3 OR FEVER; Start at 18:30 Morphine Sulfate (morphine) 2 mg Q4H PRN IV SEVERE PAIN LEVEL 7-10 Last administered on 09/26/16t 12:02; Admin Dose 2 MG; Start 09/05/16 at 18:30 Docusate Sodium (Colace) 100 mg Q12H PRN PO CONSTIPATION; Start 09/05/16 at 18: 30 Magnesium Hydroxide (Milk Of Mag) 30 ml DAILY PRN PO CONSTIPATION; Start at 18:30 Sodium Biphosphate/ Sodium Phosphate (Fleet Enema) 133 ml DAILY PRN [place] CONSTIPATION; Start 09/05/16 at 18:30 Hydralazine HCl (Apresoline) 10 mg Q6H PRN IV ELEVATED BLOOD PRESSURE; Start at 18:30 Nitroglycerin (Nitroglycerin (Sl Tab) 0.4 Mg) 1 tab Q5M PRN SL ANGINA; Start at 18:30 Miscellaneous Information 1 ea NOTE XX ; Start 09/05/16 at 19:00 Glucose (Glutose) 15 gm Q15M PRN PO DECREASED GLUCOSE; Start 09/05/16 at 19:00 Glucose (Glutose) 22.5 gm Q15M PRN PO DECREASED GLUCOSE; Start 09/05/16 at 19: 00 Dextrose (D50w Syringe) 25 ml Q15M PRN IV DECREASED GLUCOSE; Start 09/05/16 at 19:00 Dextrose (D50w Syringe) 50 ml Q15M PRN IV DECREASED GLUCOSE; Start 09/05/16 at 19:00 Glucagon (Glucagen) 1 mg Q15M PRN IM DECREASED GLUCOSE; Start 09/05/16 at 19:00 Glucose 15 gm 15 gm Q15M PRN BUCCAL DECREASED GLUCOSE; Start 09/05/16 at 19:00 Ondansetron HCl/ Sodium Chloride (Zofran Inj/NS) 54 ml @ 216 mls/hr Q6H PRN IV NAUSEA AND/OR VOMITING Last administered on 09/07/16 17:27; Admin Dose 216 MLS/HR; Start 09/06/16 at 10:30 Pantoprazole 40 mg 40 mg BID@06,18 IV Last administered on 09/26/16 06:05; Admin Dose 40 MG; Start 09/08/16 at 18:00 Fat Emulsion Intravenous (Liposyn Ii 20%) 500 ml @ 20.833 mls/ hr Q24H IV Last administered on 09/25/16 17:20; Admin Dose 20.833 MLS/HR; Start 09/11/16 at 16:00 Hydrocortisone (Solu-Cortef) 50 mg Q8 IV Last administered on 09/26/16 06:05; Admin Dose 50 MG; Start 09/13/16 at 14:00 Lorazepam (Ativan) 1 mg Q4 PRN IV ANXIETY Last administered on 09/20/16 05:56 ; Admin Dose 1 MG; Start 09/14/16 at 06:30 Insulin Aspart (Novolog Insulin Pen) NOVOLOG *MILD* ALGORI... Q6 SC Last administered on 09/26/16 01:02; Admin Dose 1 UNIT; Start 09/16/16 at 00:00 Collagenase 1 applic 1 applic DAILY TOP Last administered on 09/26/16 09:54; Admin Dose 1 APPLIC; Start 09/17/16 at 09:00 Total Parenteral Nutrition (Tpn) 1,000 ml @ 40 mls/hr Q24H IV Last administered on 09/25/16 17:21; Admin Dose 40 MLS/HR; Start 09/19/16 at 16:00 Furosemide (Lasix) 20 mg DAILY IV Last administered on 09/25/16 08:30; Admin Dose 20 MG; Start 09/23/16 at 09:00 Enalaprilat 0.625 mg 0.625 mg Q8 IV Last administered on 09/25/16 13:32; Admin Dose 0.625 MG; Start 09/24/16 at 08:09 Dextrose 1,000 ml @ 50 mls/hr Q20H IV Last administered on 09/26/16 12:03; Admin Dose 50 MLS/HR; Start 09/26/16 at 09:00 Meropenem 100 ml @ 200 mls/hr Q8 IVPB ; Start 09/26/16 at 14:00 Fluconazole/ Sodium Chloride 50 ml @ 50 mls/hr Q24H IVPB Last administered on 13:19; Admin Dose 50 MLS/HR; Start 09/26/16 at 12:00 Vancomycin HCl 100 ml @ 100 mls/hr Q36H IVPB ; Start 09/27/16 at 11:00 Norepinephrine 16 mg/Dextrose 500 ml @ 0 mls/hr TITRATE IV Last administered on 09/26/16 12:00; Admin Dose 18.75 MLS/HR; Start 09/26/16 at 20:00 Phenylephrine HCl/ Dextrose (Julio-Syneph/D5W) 500 ml @ 75 mls/hr TITRATE IV Last administered on 09/26/16 13:24; Admin Dose 75 MLS/HR; Start 09/26/16 at 12 :30 [place] DE LEON NP Sep 26, 2016 13:31
--- NOTE | 2016-09-26 14:18 | CONS ---
Date/Time of Note Date/Time of Note DATE: 09/26/16 TIME: 14:15 Assessment/Plan Assessment/Plan Additional Assessment/Plan Chest x-ray was reviewed from this morning which is essentially unremarkable. Assessment recommendations; 1. Patient admitted for acute abdomen likely due to bowel perforation however patient was deemed too sick to undergo laparotomy. 2. Widely metastatic cervical cancer. 3. History of ureteral obstruction, status post bilateral nephrostomy tube placement. 4. Likely ongoing sepsis. 5. Severe hypotension. Patient currently on high-dose pressor support. Continue current supportive care. Give another 500 mL fluid bolus of normal saline. Because of hypotension patient is at very high risk of further decompensation if she has to be electively intubated. Prognosis is dismal. Consultation Date/Type/Reason Admit Date/Time September 05, 2016 at 16:23 Initial Consult Date 09/06/16 Type of Consultation: Pulmonary/critical care Referring Provider: MORIAH GARRIDO 24 HR Interval Summary Free Text/Dictation Patient condition is significant for the worse. The patient became hypotensive on the medical floor and had to be brought into ICU after rapid response was called in. The patient is awake and requiring high-dose pressor support with combination Levophed and phenylephrine drips both maxed out. She also has been fluid resuscitated. Lacie; elderly woman, awake, currently in no distress. Exam/Review of Systems Vital Signs Vitals Vital Signs Date Time Temp Pulse Resp B/P Pulse Ox O2 Delivery O2 Flow Rate FiO2 09/26/16 14:00 115 32 63/26 Nasal Cannula 09/26/16 13:55 2.0 09/26/16 13:15 94 09/26/16 12:00 99.0 09/24/16 13:00 30 Intake and Output 09/25/16 09/25/16 09/26/16 15:00 23:00 07:00 Intake Total 425.831 ml 182.499 ml 0 ml Output Total 950 ml 910 ml 700 ml Balance -524.169 ml -727.501 ml -700 ml Exam HEENT examined; supple neck, no lymphadenopathy. No thyromegaly. Patient has fair dentition. Pupils are small bilaterally. Chest examination; diminished but clear vessel. S1-S2 audible, no murmurs. Regular rhythm. Abdomen exam is; distended, nontender. Bowel sounds absent. Patient bilateral nephrostomy tubes in place. Extremity exam is; no peripheral edema. Pulses are 1+ bilaterally. [employer] exam; patient is awake. Results Result Diagram: 09/26/16 0520 09/26/16 0520 Results 24 hrs Laboratory Tests Test 09/25/16 17:19 09/26/16 00:57 09/26/16 05:20 09/26/16 06:07 Bedside Glucose 130 149 124 White Blood Count 14.2 H Red Blood Count 3.22 #L Hemoglobin 10.2 L Hematocrit 32.9 #L Mean Corpuscular Volume 102.2 H Mean Corpuscular Hemoglobin 31.7 # Mean Corpuscular Hemoglobin Concent 31.0 #L Red Cell Distribution Width 23.5 H Platelet Count 96 #L Mean Platelet Volume 14.4 H Neutrophils % 76.0 Band Neutrophils % 16.0 H Lymphocytes % 2.0 L Monocytes % 5.0 Eosinophils % Promyelocytes % 1.0 H Nucleated Red Blood Cells % 5.0 H Neutrophils # 10.8 H Lymphocytes # 0.3 L Monocytes # 0.7 Eosinophils # Promyelocytes # 0.1 Polychromasia 1+ Anisocytosis 1+ Macrocytosis 1+ Sodium Level 151 H Potassium Level 3.7 Chloride Level 114 H Carbon Dioxide Level 29 Anion Gap 12 Blood Urea Nitrogen 42 H Creatinine 0.77 Glucose Level 103 # Calcium Level 11.6 H Phosphorus Level 3.5 Magnesium Level 2.3 Total Bilirubin 0.5 Direct Bilirubin 0.20 # Indirect Bilirubin 0.3 Aspartate Amino Transf (AST/SGOT) 64 H Alanine Aminotransferase (ALT/SGPT) 60 Alkaline Phosphatase 857 #H B-Type Natriuretic Peptide 50484 H Total Protein 5.3 #L Albumin 2.9 L Globulin 2.40 Albumin/Globulin Ratio 1.20 Parathyroid Hormone (Intact) Digoxin Level 0.8 L Test 09/26/16 09:37 09/26/16 12:26 Bedside Glucose 119 92 Medications Medications Current Medications Acetaminophen (Tylenol Tab) 650 mg Q6H PRN PO PAIN LEVEL 1-3 OR FEVER; Start at 18:30 Morphine Sulfate (morphine) 2 mg Q4H PRN IV SEVERE PAIN LEVEL 7-10 Last administered on 09/26/16t 12:02; Admin Dose 2 MG; Start 09/05/16 at 18:30 Docusate Sodium (Colace) 100 mg Q12H PRN PO CONSTIPATION; Start 09/05/16 at 18: 30 Magnesium Hydroxide (Milk Of Mag) 30 ml DAILY PRN PO CONSTIPATION; Start at 18:30 Sodium Biphosphate/ Sodium Phosphate (Fleet Enema) 133 ml DAILY PRN [place] CONSTIPATION; Start 09/05/16 at 18:30 Hydralazine HCl (Apresoline) 10 mg Q6H PRN IV ELEVATED BLOOD PRESSURE; Start at 18:30 Nitroglycerin (Nitroglycerin (Sl Tab) 0.4 Mg) 1 tab Q5M PRN SL ANGINA; Start at 18:30 Miscellaneous Information 1 ea NOTE XX ; Start 09/05/16 at 19:00 Glucose (Glutose) 15 gm Q15M PRN PO DECREASED GLUCOSE; Start 09/05/16 at 19:00 Glucose (Glutose) 22.5 gm Q15M PRN PO DECREASED GLUCOSE; Start 09/05/16 at 19: 00 Dextrose (D50w Syringe) 25 ml Q15M PRN IV DECREASED GLUCOSE; Start 09/05/16 at 19:00 Dextrose (D50w Syringe) 50 ml Q15M PRN IV DECREASED GLUCOSE; Start 09/05/16 at 19:00 Glucagon (Glucagen) 1 mg Q15M PRN IM DECREASED GLUCOSE; Start 09/05/16 at 19:00 Glucose 15 gm 15 gm Q15M PRN BUCCAL DECREASED GLUCOSE; Start 09/05/16 at 19:00 Ondansetron HCl/ Sodium Chloride (Zofran Inj/NS) 54 ml @ 216 mls/hr Q6H PRN IV NAUSEA AND/OR VOMITING Last administered on 09/07/16 17:27; Admin Dose 216 MLS/HR; Start 09/06/16 at 10:30 Pantoprazole 40 mg 40 mg BID@06,18 IV Last administered on 09/26/16 06:05; Admin Dose 40 MG; Start 09/08/16 at 18:00 Fat Emulsion Intravenous (Liposyn Ii 20%) 500 ml @ 20.833 mls/ hr Q24H IV Last administered on 09/25/16 17:20; Admin Dose 20.833 MLS/HR; Start 09/11/16 at 16:00 Hydrocortisone (Solu-Cortef) 50 mg Q8 IV Last administered on 09/26/16 06:05; Admin Dose 50 MG; Start 09/13/16 at 14:00 Lorazepam (Ativan) 1 mg Q4 PRN IV ANXIETY Last administered on 09/20/16 05:56 ; Admin Dose 1 MG; Start 09/14/16 at 06:30 Insulin Aspart (Novolog Insulin Pen) NOVOLOG *MILD* ALGORI... Q6 SC Last administered on 09/26/16 01:02; Admin Dose 1 UNIT; Start 09/16/16 at 00:00 Collagenase 1 applic 1 applic DAILY TOP Last administered on 09/26/16 09:54; Admin Dose 1 APPLIC; Start 09/17/16 at 09:00 Total Parenteral Nutrition (Tpn) 1,000 ml @ 40 mls/hr Q24H IV Last administered on 09/25/16 17:21; Admin Dose 40 MLS/HR; Start 09/19/16 at 16:00 Furosemide (Lasix) 20 mg DAILY IV Last administered on 09/25/16 08:30; Admin Dose 20 MG; Start 09/23/16 at 09:00 Enalaprilat 0.625 mg 0.625 mg Q8 IV Last administered on 09/25/16 13:32; Admin Dose 0.625 MG; Start 09/24/16 at 08:09 Dextrose 1,000 ml @ 50 mls/hr Q20H IV Last administered on 09/26/16 12:03; Admin Dose 50 MLS/HR; Start 09/26/16 at 09:00 Meropenem 100 ml @ 200 mls/hr Q8 IVPB ; Start 09/26/16 at 14:00 Fluconazole/ Sodium Chloride 50 ml @ 50 mls/hr Q24H IVPB Last administered on 13:19; Admin Dose 50 MLS/HR; Start 09/26/16 at 12:00 Vancomycin HCl 100 ml @ 100 mls/hr Q36H IVPB ; Start 09/27/16 at 11:00 Norepinephrine 16 mg/Dextrose 500 ml @ 0 mls/hr TITRATE IV Last administered on 09/26/16 12:00; Admin Dose 18.75 MLS/HR; Start 09/26/16 at 20:00 Phenylephrine HCl/ Dextrose (Julio-Syneph/D5W) 500 ml @ 75 mls/hr TITRATE IV Last administered on 09/26/16t 13:24; Admin Dose 75 MLS/HR; Start 09/26/16 at 12 :30 SKYLER ESTEVES Sep 26, 2016 14:18
[2016-09-26] MEDS ORDERED: SOD CHLORIDE 0.9% 500 ML IV ONE (14:30)
--- NOTE | 2016-09-26 14:36 | RADRPT ---
Vent Rate: 136 bpm RR Interval: 0 msec NC Interval: 158 msec QRS Duration: 74 msec QT Interval: 264 msec QTC Interval: 397 msec P-R-T [place]: 53 - -18 - 108 degrees Sinus tachycardia Nonspecific ST and T wave abnormality Abnormal ECG Electronically Signed By: Will Mcfarlane [phone]
[2016-09-26] MEDS: MEROPENEM 500 MG/100 ML (PMX) 100 ML IVPB SCH ×2 (14:40→21:31)
--- NOTE | 2016-09-26 14:43 | RADRPT ---
PROCEDURE: Small bowel follow-through. CLINICAL INDICATION: Abdomen pain. TECHNIQUE: Water-soluble contrast was administered via the nasogastric tube and several spot and o verhead radiographs of the abdomen were obtained. COMPARISON: None. FINDINGS: On the preliminary radiograph, the nasogastric tube tip is in the stomach. There is an inferior dre a cava filter with the superior tip at the T12 level. There are bilateral nephrostomy tubes overlyi ng the upper abdomen. Vascular stents are present in the left iliac and common femoral regions. There is no small bowel displacement or mass. The small bowel folds are normal. There is no evidence of obstruction. Transit time is normal with contrast in the colon at 4 hours. IMPRESSION: 1. Nasogastric tube tip in the stomach. 2. Bilateral nephrostomy tubes. 3. IVC filter. 4. Vascular stents noted on the left side. 5. No evidence of small bowel obstruction. RPTAT: QQ .Moises Hadley MD, MD Date Time Electronically viewed and signed by .Moises Hadley MD, on 09/26/2016 14:42 .R/
[2016-09-26] MEDS ORDERED: DIGOXIN 500 MCG INJ IV ONE (15:00)
--- NOTE | 2016-09-26 15:15 | PN ---
Date/Time of Note Date/Time of Note DATE: 09/26/16 TIME: 15:12 Assessment/Plan VTE Prophylaxis VTE Prophylaxis Intervention: SCD's Lines/Catheters IV Catheter Type (from Nrsg): PICC Line Central line still needed: Yes Urinary Cath still in place: No (Bilateral nephrostomy tubes) Assessment/Plan Assessment/Plan 61 you F with stage 4 cervical cancer with mets to pelvis with resultant hydronephrosis warranting bl nephrostomy tube placement, obstruction of sigmoid colon with resultant perforatin admitted for septic shock. Also found to have LUE DVT, possible UTI, acute renal failure and acute hypoxic respiratory failure -->respiratory failure resolved. Now with recurrence of shock, etio unclear. 1. Shock. Etiology unclear. WBCs not markedly elevated, hgb stable, CXR this AM without evidence of pna repeating labs now, cont pressors pt to unstable at this time to send for imaging pt already on vanc and meropenem 2. Post colonoscopy perforated viscus large pelvic mass invading colon wall site of perforation, contrast leakage to pelvic area, Contained perforation as no evidence of generalized peritonitis Abx as per ID GI and gen surg following 3. History of metastatic cervical cancer. Status post radiation and chemo. Currently, getting palliative chemotherapy. Palliative care already following the patient. 4. Hypochromic anemia. Etiology unclear. Status post PRBC transfusion. repeating labs 5. Chronic ureteral obstruction , s/p Bilateral nephrostomy tubes. Continue monitoring. 6. Acute respiratory failure. Pulmonology has been consulted, continue vent management-->EXTUBATED 6.14 7. Cardiomyopathy with ejection fraction of 20%. Cardiology has been consulted 8. Possible underlying ileus. Continue p.r.n. antiemetics. abx as per ID. Gastroenterology following the patient. 9. Severe LE edema and anasarca 2/2 mass effect 10. Stage III sacral decubitus, continue wound care, repositioning as protocol Deep venous thrombosis prophylaxis. Bilateral sequential compression devices. Pt remains critically ill. Prognosis highly guarded. Pt still full code at this time. Subjective 24 Hr Interval Summary Free Text/Dictation P[employer] called this AM for hypotension. I came to see pt, BP 60s/30 and HR in the 120s-140s. 1L bolus ordered with minimal improvement. Pt transferred to ICU and started on pressors. Pt maxed out on 2 pressors within several hours of transfer. Exam/Review of Systems Vital Signs Vitals Vital Signs Date Time Temp Pulse Resp B/P Pulse Ox O2 Delivery O2 Flow Rate FiO2 09/26/16 14:00 115 32 63/26 Nasal Cannula 09/26/16 13:55 2.0 09/26/16 13:15 94 09/26/16 12:00 99.0 09/24/16 13:00 30 Intake and Output 09/25/16 09/25/16 09/26/16 15:00 23:00 07:00 Intake Total 425.831 ml 182.499 ml 0 ml Output Total 950 ml 910 ml 700 ml Balance -524.169 ml -727.501 ml -700 ml Exam laying in bed, wearing NC, moaning tachy lungs clear abd soft but groans to abd palpation in all quadrants bl nephrostomy tubes with yellow urine Results Result Diagram: 09/26/16 0520 09/26/16 0520 Results 24 hrs Laboratory Tests Test 09/25/16 17:19 09/26/16 00:57 09/26/16 05:20 09/26/16 06:07 Bedside Glucose 130 149 124 White Blood Count 14.2 H Red Blood Count 3.22 #L Hemoglobin 10.2 L Hematocrit 32.9 #L Mean Corpuscular Volume 102.2 H Mean Corpuscular Hemoglobin 31.7 # Mean Corpuscular Hemoglobin Concent 31.0 #L Red Cell Distribution Width 23.5 H Platelet Count 96 #L Mean Platelet Volume 14.4 H Neutrophils % 76.0 Band Neutrophils % 16.0 H Lymphocytes % 2.0 L Monocytes % 5.0 Eosinophils % Promyelocytes % 1.0 H Nucleated Red Blood Cells % 5.0 H Neutrophils # 10.8 H Lymphocytes # 0.3 L Monocytes # 0.7 Eosinophils # Promyelocytes # 0.1 Polychromasia 1+ Anisocytosis 1+ Macrocytosis 1+ Sodium Level 151 H Potassium Level 3.7 Chloride Level 114 H Carbon Dioxide Level 29 Anion Gap 12 Blood Urea Nitrogen 42 H Creatinine 0.77 Glucose Level 103 # Calcium Level 11.6 H Phosphorus Level 3.5 Magnesium Level 2.3 Total Bilirubin 0.5 Direct Bilirubin 0.20 # Indirect Bilirubin 0.3 Aspartate Amino Transf (AST/SGOT) 64 H Alanine Aminotransferase (ALT/SGPT) 60 Alkaline Phosphatase 857 #H B-Type Natriuretic Peptide 72403 H Total Protein 5.3 #L Albumin 2.9 L Globulin 2.40 Albumin/Globulin Ratio 1.20 Parathyroid Hormone (Intact) Digoxin Level 0.8 L Test 09/26/16 09:37 09/26/16 12:26 Bedside Glucose 119 92 Medications Medications Current Medications Acetaminophen (Tylenol Tab) 650 mg Q6H PRN PO PAIN LEVEL 1-3 OR FEVER; Start at 18:30 Morphine Sulfate (morphine) 2 mg Q4H PRN IV SEVERE PAIN LEVEL 7-10 Last administered on 09/26/16t 12:02; Admin Dose 2 MG; Start 09/05/16 at 18:30 Docusate Sodium (Colace) 100 mg Q12H PRN PO CONSTIPATION; Start 09/05/16 at 18: 30 Magnesium Hydroxide (Milk Of Mag) 30 ml DAILY PRN PO CONSTIPATION; Start at 18:30 Sodium Biphosphate/ Sodium Phosphate (Fleet Enema) 133 ml DAILY PRN [place] CONSTIPATION; Start 09/05/16 at 18:30 Hydralazine HCl (Apresoline) 10 mg Q6H PRN IV ELEVATED BLOOD PRESSURE; Start at 18:30 Nitroglycerin (Nitroglycerin (Sl Tab) 0.4 Mg) 1 tab Q5M PRN SL ANGINA; Start at 18:30 Miscellaneous Information 1 ea NOTE XX ; Start 09/05/16 at 19:00 Glucose (Glutose) 15 gm Q15M PRN PO DECREASED GLUCOSE; Start 09/05/16 at 19:00 Glucose (Glutose) 22.5 gm Q15M PRN PO DECREASED GLUCOSE; Start 09/05/16 at 19: 00 Dextrose (D50w Syringe) 25 ml Q15M PRN IV DECREASED GLUCOSE; Start 09/05/16 at 19:00 Dextrose (D50w Syringe) 50 ml Q15M PRN IV DECREASED GLUCOSE; Start 09/05/16 at 19:00 Glucagon (Glucagen) 1 mg Q15M PRN IM DECREASED GLUCOSE; Start 09/05/16 at 19:00 Glucose 15 gm 15 gm Q15M PRN BUCCAL DECREASED GLUCOSE; Start 09/05/16 at 19:00 Ondansetron HCl/ Sodium Chloride (Zofran Inj/NS) 54 ml @ 216 mls/hr Q6H PRN IV NAUSEA AND/OR VOMITING Last administered on 09/07/16 17:27; Admin Dose 216 MLS/HR; Start 09/06/16 at 10:30 Pantoprazole 40 mg 40 mg BID@06,18 IV Last administered on 09/26/16 06:05; Admin Dose 40 MG; Start 09/08/16 at 18:00 Fat Emulsion Intravenous (Liposyn Ii 20%) 500 ml @ 20.833 mls/ hr Q24H IV Last administered on 09/25/16 17:20; Admin Dose 20.833 MLS/HR; Start 09/11/16 at 16:00 Hydrocortisone (Solu-Cortef) 50 mg Q8 IV Last administered on 09/26/16 14:46; Admin Dose 50 MG; Start 09/13/16 at 14:00 Lorazepam (Ativan) 1 mg Q4 PRN IV ANXIETY Last administered on 09/20/16 05:56 ; Admin Dose 1 MG; Start 09/14/16 at 06:30 Insulin Aspart (Novolog Insulin Pen) NOVOLOG *MILD* ALGORI... Q6 SC Last administered on 09/26/16 01:02; Admin Dose 1 UNIT; Start 09/16/16 at 00:00 Collagenase 1 applic 1 applic DAILY TOP Last administered on 09/26/16 09:54; Admin Dose 1 APPLIC; Start 09/17/16 at 09:00 Total Parenteral Nutrition (Tpn) 1,000 ml @ 40 mls/hr Q24H IV Last administered on 09/25/16 17:21; Admin Dose 40 MLS/HR; Start 09/19/16 at 16:00 Furosemide (Lasix) 20 mg DAILY IV Last administered on 09/25/16 08:30; Admin Dose 20 MG; Start 09/23/16 at 09:00 Enalaprilat 0.625 mg 0.625 mg Q8 IV Last administered on 09/25/16 13:32; Admin Dose 0.625 MG; Start 09/24/16 at 08:09 Dextrose 1,000 ml @ 50 mls/hr Q20H IV Last administered on 09/26/16 12:03; Admin Dose 50 MLS/HR; Start 09/26/16 at 09:00 Meropenem 100 ml @ 200 mls/hr Q8 IVPB Last administered on 09/26/16 14:40; Admin Dose 200 MLS/HR; Start 09/26/16 at 14:00 Fluconazole/ Sodium Chloride 50 ml @ 50 mls/hr Q24H IVPB Last administered on 13:19; Admin Dose 50 MLS/HR; Start 09/26/16 at 12:00 Sodium Chloride 500 ml @ 500 mls/hr Q1H ONCE IV Last administered on 14:40; Admin Dose 500 MLS/HR; Start 09/26/16 at 14:30; Stop 09/26/16 at 15: 29 Phenylephrine HCl 80 mg/Dextrose 500 ml @ 0 mls/hr TITRATE IV ; Start 09/26/16 at 14:30 Norepinephrine 32 mg/Dextrose 500 ml @ 0 mls/hr TITRATE IV ; Start 09/26/16 at 14:30 Vasopressin 60 unit/Dextrose 60 ml @ 1.2 mls/hr Q12H IV ; Start 09/26/16 at 14: 30 Vancomycin HCl (Vancocin) 100 ml @ 100 mls/hr Q24H IVPB ; Start 09/27/16 at 12: 00 HAILE CHAPARRO MD Sep 26, 2016 15:15
[2016-09-26 15:20] LABS: ADD SCAN DIFF NO
[2016-09-26 15:22] LABS: ABNORMAL IP MESSAGE 1; HEMATOCRIT 23.5 % (37.0-47.0); HEMOGLOBIN 7.7 g/dl (12.0-16.0); MEAN CORPUSCULAR HEMOGLOBIN 33.3 pg (29.0-33.0); MEAN CORPUSCULAR HGB CONC 32.8 g/dl (32.0-37.0); MEAN CORPUSCULAR VOLUME 101.7 fl (82.0-101.0); MEAN PLATELET VOLUME 13.2 fl (7.4-10.4); PLATELET COUNT 65 10^3/UL (140-415); RED BLOOD COUNT 2.31 10^6/ul (4.20-5.40); RED CELL DISTRIBUTION WIDTH 22.9 % (11.5-14.5); WHITE BLOOD COUNT 3.7 10^3/ul (4.8-10.8)
[2016-09-26] MEDS: VASOPRESSIN 60 UNIT in DEXTROSE 5% 57 ML IV SCH (15:24)
[2016-09-26] MEDS: PHENYLephrine 80 MG in DEXTROSE 5% 492 ML IV SCH ×2 (15:37→19:33)
[2016-09-26 15:50] LABS: CALCIUM 10.3 mg/dl (8.4-10.2); CREATININE 0.89 mg/dl (0.44-1.00); POTASSIUM 3.3 mmol/L (3.5-5.1)
[2016-09-26] MEDS: TPN 1,000 ML IV SCH (16:00)
[2016-09-26] MEDS: FAT EMULSION 20% 500 ML IV SCH ×2 (16:00→19:47)
[2016-09-26 16:19] LABS: AADO2 Arterial 186.8 mmHg (7.0-24.0); Allen Test ACCEPTAB; Arterial Base Excess -0.8 mmol/L (-3.0-3); Arterial COHb 0.3 % (0.0-3.0); Arterial Fraction of Oxyhgb 87.2 % (93.0-99.0); Arterial HCO3 22.8 mmol/L (22.0-26.0); Arterial MetHb 0.4 % (0.0-1.5); Arterial Total Hemglobin 7.2 g/dl (12.0-18.0); MODE NASAL CANNULA
[2016-09-26 19:32] LABS: LYMPHOCYTES # 0.4 10^3/ul (0.8-2.9); MONOCYTE # 0.2 10^3/ul (0.3-0.9); NEUTROPHIL # 2.1 10^3/ul (1.6-7.5); POLYCHROMASIA OCCASIONAL
--- NOTE | 2016-09-26 20:55 | CONS ---
Date/Time of Note Date/Time of Note DATE: 09/26/16 TIME: 20:52 Assessment/Plan Assessment/Plan Chief Complaint/Hosp Course SUBJECTIVE: Tx to ICU 2 to shock, tachycardic, lethargic, nad INDWELLINGS: NG tube, PICC line, placed 09/11/2016, right chest Port-A-Cath, B nephrostomies. PHYSICAL EXAMINATION: GENERAL: Chronically ill-appearing, elderly woman, in no distress. HEENT: Head atraumatic, normocephalic. NECK: Supple, trachea midline. CHEST: Chest rise is symmetrical. Breath sounds diminished to the bases. HEART: S1, S2. ABDOMEN: Soft, bowel tones present. Abdomen distended. Bowel tones hypoactive. EXTREMITIES: With bilateral edema. ASSESSMENT: 1. Shock, poss aspiration 2. Large pelvic mass/ metastatic cervical cancer 3. Proximal sigmoid colon obstruction with perforation. 4. Urinary tract infection, per urinalysis. 5. Acute renal and respiratory failure. 6. LUE DVT with PICC present PLAN: Will magana cx and check cxr, restart abx, f/u card/pulmonary rec-s, no plans for oncologic and surgical interventions, prognosis poor [facility] staff Problems: Consultation Date/Type/Reason Admit Date/Time September 05, 2016 at 16:23 Initial Consult Date 09/06/16 Type of Consultation: ID Referring Provider: MORIAH GARRIDO Exam/Review of Systems Vital Signs Vitals Vital Signs Date Time Temp Pulse Resp B/P Pulse Ox O2 Delivery O2 Flow Rate FiO2 09/26/16 20:30 127 41 103/54 09/26/16 20:04 98 Simple Mask 12.0 09/26/16 20:00 98.4 09/24/16 13:00 30 Intake and Output 09/25/16 09/25/16 09/26/16 15:00 23:00 07:00 Intake Total 425.831 ml 182.499 ml 0 ml Output Total 950 ml 910 ml 700 ml Balance -524.169 ml -727.501 ml -700 ml Results Result Diagram: 09/26/16 1510 09/26/16 1510 Results 24 hrs Laboratory Tests Test 09/26/16 00:57 09/26/16 05:20 09/26/16 06:07 09/26/16 09:37 Bedside Glucose 149 124 119 White Blood Count 14.2 H Red Blood Count 3.22 #L Hemoglobin 10.2 L Hematocrit 32.9 #L Mean Corpuscular Volume 102.2 H Mean Corpuscular Hemoglobin 31.7 # Mean Corpuscular Hemoglobin Concent 31.0 #L Red Cell Distribution Width 23.5 H Platelet Count 96 #L Mean Platelet Volume 14.4 H Neutrophils % 76.0 Band Neutrophils % 16.0 H Lymphocytes % 2.0 L Monocytes % 5.0 Eosinophils % Promyelocytes % 1.0 H Nucleated Red Blood Cells % 5.0 H Neutrophils # 10.8 H Lymphocytes # 0.3 L Monocytes # 0.7 Eosinophils # Promyelocytes # 0.1 Polychromasia 1+ Anisocytosis 1+ Macrocytosis 1+ Sodium Level 151 H Potassium Level 3.7 Chloride Level 114 H Carbon Dioxide Level 29 Anion Gap 12 Blood Urea Nitrogen 42 H Creatinine 0.77 Glucose Level 103 # Calcium Level 11.6 H Phosphorus Level 3.5 Magnesium Level 2.3 Total Bilirubin 0.5 Direct Bilirubin 0.20 # Indirect Bilirubin 0.3 Aspartate Amino Transf (AST/SGOT) 64 H Alanine Aminotransferase (ALT/SGPT) 60 Alkaline Phosphatase 857 #H B-Type Natriuretic Peptide 69760 H Total Protein 5.3 #L Albumin 2.9 L Globulin 2.40 Albumin/Globulin Ratio 1.20 Parathyroid Hormone (Intact) Digoxin Level 0.8 L Test 09/26/16 12:26 09/26/16 15:10 09/26/16 15:37 09/26/16 17:20 Bedside Glucose 92 169 White Blood Count 3.7 #L Red Blood Count 2.31 #L Hemoglobin 7.7 #L Hematocrit 23.5 #L Mean Corpuscular Volume 101.7 H Mean Corpuscular Hemoglobin 33.3 H Mean Corpuscular Hemoglobin Concent 32.8 Red Cell Distribution Width 22.9 H Platelet Count 65 #L Mean Platelet Volume 13.2 H Neutrophils % 57.0 Band Neutrophils % 23.0 H Lymphocytes % 11.0 L Monocytes % 5.0 Eosinophils % 1.0 Metamyelocytes % 2.0 H Myelocytes % 1.0 H Nucleated Red Blood Cells % 37.0 H Neutrophils # 2.1 Lymphocytes # 0.4 L Monocytes # 0.2 L Eosinophils # 0.0 Metamyelocytes # 0.1 Myelocytes # 0.0 Polychromasia OCCASIONAL Macrocytosis 1+ Sodium Level 147 H Potassium Level 3.3 L Chloride Level 115 H Carbon Dioxide Level 26 Anion Gap 9 Blood Urea Nitrogen 41 H Creatinine 0.89 Glucose Level 156 Lactic Acid Level 5.6 *H Calcium Level 10.3 H Blood Gas Specimen Source Blood arterial Arterial Blood Date Drawn 09/26/2016 4:00:17 PM Arterial Blood pH (Temp corrected) 7.462 H Arterial Blood pCO2 (Temp correct) 32.6 L Arterial Blood pO2 (Temp corrected) 53.7 *L Arterial Blood HCO3 22.8 Arterial Blood Base Excess -0.8 Arterial Blood Oxygen Saturation 87.8 L Que Test ACCEPTAB Arterial Blood Gas Puncture Site Right Radial Arterial Blood Carboxyhemoglobin 0.3 Arterial Blood Methemoglobin 0.4 Blood Gas A-a O2 Differential 186.8 H Oxyhemoglobin Percent 87.2 L Total Hemoglobin 7.2 L Blood Gas Temperature 37.0 Blood Gas Modality NASAL CANNULA FiO2 39.0 Blood Gas Critical Value Read Back CAM RN Blood Gas Notified Whom CW Blood Gas Notified Time 09/26/2016 4:18:35 PM Medications Medications Current Medications Acetaminophen (Tylenol Tab) 650 mg Q6H PRN PO PAIN LEVEL 1-3 OR FEVER; Start at 18:30 Morphine Sulfate (morphine) 2 mg Q4H PRN IV SEVERE PAIN LEVEL 7-10 Last administered on 09/26/16t 17:06; Admin Dose 2 MG; Start 09/05/16 at 18:30 Docusate Sodium (Colace) 100 mg Q12H PRN PO CONSTIPATION; Start 09/05/16 at 18: 30 Magnesium Hydroxide (Milk Of Mag) 30 ml DAILY PRN PO CONSTIPATION; Start at 18:30 Sodium Biphosphate/ Sodium Phosphate (Fleet Enema) 133 ml DAILY PRN MA CONSTIPATION; Start 09/05/16 at 18:30 Hydralazine HCl (Apresoline) 10 mg Q6H PRN IV ELEVATED BLOOD PRESSURE; Start at 18:30 Nitroglycerin (Nitroglycerin (Sl Tab) 0.4 Mg) 1 tab Q5M PRN SL ANGINA; Start at 18:30 Miscellaneous Information 1 ea NOTE XX ; Start 09/05/16 at 19:00 Glucose (Glutose) 15 gm Q15M PRN PO DECREASED GLUCOSE; Start 09/05/16 at 19:00 Glucose (Glutose) 22.5 gm Q15M PRN PO DECREASED GLUCOSE; Start 09/05/16 at 19: 00 Dextrose (D50w Syringe) 25 ml Q15M PRN IV DECREASED GLUCOSE; Start 09/05/16 at 19:00 Dextrose (D50w Syringe) 50 ml Q15M PRN IV DECREASED GLUCOSE; Start 09/05/16 at 19:00 Glucagon (Glucagen) 1 mg Q15M PRN IM DECREASED GLUCOSE; Start 09/05/16 at 19:00 Glucose 15 gm 15 gm Q15M PRN BUCCAL DECREASED GLUCOSE; Start 09/05/16 at 19:00 Ondansetron HCl/ Sodium Chloride (Zofran Inj/NS) 54 ml @ 216 mls/hr Q6H PRN IV NAUSEA AND/OR VOMITING Last administered on 09/07/16 17:27; Admin Dose 216 MLS/HR; Start 09/06/16 at 10:30 Pantoprazole 40 mg 40 mg BID@06,18 IV Last administered on 09/26/16 17:23; Admin Dose 40 MG; Start 09/08/16 at 18:00 Fat Emulsion Intravenous (Liposyn Ii 20%) 500 ml @ 20.833 mls/ hr Q24H IV Last administered on 09/26/16 19:47; Admin Dose 20.833 MLS/HR; Start 09/11/16 at 16:00 Hydrocortisone (Solu-Cortef) 50 mg Q8 IV Last administered on 09/26/16 14:46; Admin Dose 50 MG; Start 09/13/16 at 14:00 Lorazepam (Ativan) 1 mg Q4 PRN IV ANXIETY Last administered on 09/20/16 05:56 ; Admin Dose 1 MG; Start 09/14/16 at 06:30 Insulin Aspart (Novolog Insulin Pen) NOVOLOG *MILD* ALGORI... Q6 SC Last administered on 09/26/16 17:22; Admin Dose 1 UNIT; Start 09/16/16 at 00:00 Collagenase 1 applic 1 applic DAILY TOP Last administered on 09/26/16 09:54; Admin Dose 1 APPLIC; Start 09/17/16 at 09:00 Total Parenteral Nutrition (Tpn) 1,000 ml @ 40 mls/hr Q24H IV Last administered on 09/25/16 17:21; Admin Dose 40 MLS/HR; Start 09/19/16 at 16:00 Furosemide (Lasix) 20 mg DAILY IV Last administered on 09/25/16 08:30; Admin Dose 20 MG; Start 09/23/16 at 09:00 Enalaprilat 0.625 mg 0.625 mg Q8 IV Last administered on 09/25/16 13:32; Admin Dose 0.625 MG; Start 09/24/16 at 08:09 Dextrose 1,000 ml @ 50 mls/hr Q20H IV Last administered on 09/26/16 12:03; Admin Dose 50 MLS/HR; Start 09/26/16 at 09:00 Meropenem 100 ml @ 200 mls/hr Q8 IVPB Last administered on 09/26/16 14:40; Admin Dose 200 MLS/HR; Start 09/26/16 at 14:00 Fluconazole/ Sodium Chloride 50 ml @ 50 mls/hr Q24H IVPB Last administered on 13:19; Admin Dose 50 MLS/HR; Start 09/26/16 at 12:00 Phenylephrine HCl 80 mg/Dextrose 500 ml @ 0 mls/hr TITRATE IV Last administered on 09/26/16 19:33; Admin Dose 112.5 MLS/HR; Start 09/26/16 at 14: 30 Norepinephrine 32 mg/Dextrose 500 ml @ 0 mls/hr TITRATE IV Last administered on 09/26/16 15:36; Admin Dose 0 MLS/HR; Start 09/26/16 at 14:30 Vasopressin 60 unit/Dextrose 60 ml @ 1.2 mls/hr Q12H IV Last administered on 15:24; Admin Dose 1.2 MLS/HR; Start 09/26/16 at 14:30 Vancomycin HCl (Vancocin) 100 ml @ 100 mls/hr Q24H IVPB ; Start 09/27/16 at 12: 00 BIN MITTAL NP Sep 26, 2016 20:55
[2016-09-27] VITALS (96 sets, daily range): BP systolic 75–131; BP diastolic 36–115; PULSE 97–134; RESP 32–52
[2016-09-27] MEDS: PHENYLephrine 80 MG in DEXTROSE 5% 492 ML IV SCH ×2 (00:10→07:47)
[2016-09-27] MEDS: ALBUTEROL/IPRATROPIUM (NEB) 3 ML AMP HHN SCH ×4 (02:26→19:25)
[2016-09-27] MEDS: HYDROCORTISONE 100 MG INJ IV SCH ×3 (05:44→22:16)
[2016-09-27] MEDS: MEROPENEM 500 MG/100 ML (PMX) 100 ML IVPB SCH ×3 (05:44→22:16)
[2016-09-27] MEDS: PANTOPRAZOLE 40 MG INJ IV SCH ×2 (05:44→17:11)
[2016-09-27] MEDS: ENALAPRILAT 1.25 MG INJ IV SCH ×3 (05:51→22:00)
[2016-09-27] MEDS: INSULIN ASPART [NOVOLOG] 3 ML PEN SC SCH ×3 (05:58→17:16)
[2016-09-27 06:32] LABS: CALCIUM 11.1 mg/dl (8.4-10.2); CREATININE 0.94 mg/dl (0.44-1.00); MAGNESIUM 1.9 mg/dl (1.7-2.5); PHOSPHORUS 4.1 mg/dl (2.5-4.9); POTASSIUM 3.8 mmol/L (3.5-5.1)
[2016-09-27] MEDS: VASOPRESSIN 60 UNIT in DEXTROSE 5% 57 ML IV SCH ×2 (07:51→14:30)
[2016-09-27] MEDS: DEXTROSE 5% 1,000 ML IV SCH (07:55)
--- NOTE | 2016-09-27 08:15 | CONS ---
Date/Time of Note Date/Time of Note DATE: 09/27/16 TIME: 08:13 Assessment/Plan Assessment/Plan Additional Assessment/Plan Patient currently on Levophed drip at 20 mics per minute, phenylephrine drip at 150 mics per minute. Assessment recommendations; 1. Patient initially admitted with bowel obstruction and perforation with respiratory failure was extubated and transferred to the medical floor with the patient yesterday morning decompensated requiring transfer back to ICU. Patient 's family has not decided for DNR status. 2. History of bilateral nephrostomy tube placement. 3. Widely metastatic cervical cancer. 4. Sepsis. Continue current supportive care. Prognosis is very poor. Consultation Date/Type/Reason Admit Date/Time September 05, 2016 at 16:23 Initial Consult Date 09/06/16 Type of Consultation: Pulmonary/critical care Referring Provider: MORIAH GARRIDO 24 HR Interval Summary Free Text/Dictation Patient condition is critical. Still requiring high-dose pressor support. Patient exhibiting poor mental status. General exam; elderly woman, currently in no distress. Not much arousable. Exam/Review of Systems Vital Signs Vitals Vital Signs Date Time Temp Pulse Resp B/P Pulse Ox O2 Delivery O2 Flow Rate FiO2 09/27/16 07:59 124 44 100 Simple Mask 8.0 09/27/16 07:00 99/64 09/27/16 06:01 53 09/27/16 04:00 98.1 Intake and Output 09/26/16 09/26/16 09/27/16 15:00 23:00 07:00 Intake Total 2866.51 ml 2011.86 ml 1497.8 ml Output Total 50 ml 250 ml 70 ml Balance 2816.51 ml 1761.86 ml 1427.8 ml Exam HEENT examination; supple neck, no JVD. No lymphadenopathy. Midline trachea. Pupils are small bilaterally. Chest examination; clear to auscultation. S1-S2 audible, no murmurs. Abdomen examination; distended. Bowel sounds absent. Extremity examination; 3+ anasarca. DEPARTMENT HEAD examination; patient is not much arousable. Results Result Diagram: 09/26/16 1510 09/27/16 0530 Results 24 hrs Laboratory Tests Test 09/26/16 09:37 09/26/16 12:26 09/26/16 15:10 09/26/16 15:37 Bedside Glucose 119 92 White Blood Count 3.7 #L Red Blood Count 2.31 #L Hemoglobin 7.7 #L Hematocrit 23.5 #L Mean Corpuscular Volume 101.7 H Mean Corpuscular Hemoglobin 33.3 H Mean Corpuscular Hemoglobin Concent 32.8 Red Cell Distribution Width 22.9 H Platelet Count 65 #L Mean Platelet Volume 13.2 H Neutrophils % 57.0 Band Neutrophils % 23.0 H Lymphocytes % 11.0 L Monocytes % 5.0 Eosinophils % 1.0 Metamyelocytes % 2.0 H Myelocytes % 1.0 H Nucleated Red Blood Cells % 37.0 H Neutrophils # 2.1 Lymphocytes # 0.4 L Monocytes # 0.2 L Eosinophils # 0.0 Metamyelocytes # 0.1 Myelocytes # 0.0 Polychromasia OCCASIONAL Macrocytosis 1+ Sodium Level 147 H Potassium Level 3.3 L Chloride Level 115 H Carbon Dioxide Level 26 Anion Gap 9 Blood Urea Nitrogen 41 H Creatinine 0.89 Glucose Level 156 Lactic Acid Level 5.6 *H Calcium Level 10.3 H Blood Gas Specimen Source Blood arterial Arterial Blood Date Drawn 09/26/2016 4:00:17 PM Arterial Blood pH (Temp corrected) 7.462 H Arterial Blood pCO2 (Temp correct) 32.6 L Arterial Blood pO2 (Temp corrected) 53.7 *L Arterial Blood HCO3 22.8 Arterial Blood Base Excess -0.8 Arterial Blood Oxygen Saturation 87.8 L Que Test ACCEPTAB Arterial Blood Gas Puncture Site Right Radial Arterial Blood Carboxyhemoglobin 0.3 Arterial Blood Methemoglobin 0.4 Blood Gas A-a O2 Differential 186.8 H Oxyhemoglobin Percent 87.2 L Total Hemoglobin 7.2 L Blood Gas Temperature 37.0 Blood Gas Modality NASAL CANNULA FiO2 39.0 Blood Gas Critical Value Read Back CAM PIERRE Blood Gas Notified Whom CW Blood Gas Notified Time 09/26/2016 4:18:35 PM Test 09/26/16 17:20 09/26/16 23:30 09/27/16 05:30 09/27/16 05:54 Bedside Glucose 169 254 H 273 H Sodium Level 142 Potassium Level 3.8 Chloride Level 106 Carbon Dioxide Level 23 Anion Gap 17 #H Blood Urea Nitrogen 45 H Creatinine 0.94 Glucose Level 220 Calcium Level 11.1 H Phosphorus Level 4.1 Magnesium Level 1.9 Medications Medications Current Medications Acetaminophen (Tylenol Tab) 650 mg Q6H PRN PO PAIN LEVEL 1-3 OR FEVER; Start at 18:30 Morphine Sulfate (morphine) 2 mg Q4H PRN IV SEVERE PAIN LEVEL 7-10 Last administered on 09/26/16 17:06; Admin Dose 2 MG; Start 09/05/16 at 18:30 Docusate Sodium (Colace) 100 mg Q12H PRN PO CONSTIPATION; Start 09/05/16 at 18: 30 Magnesium Hydroxide (Milk Of Mag) 30 ml DAILY PRN PO CONSTIPATION; Start at 18:30 Sodium Biphosphate/ Sodium Phosphate (Fleet Enema) 133 ml DAILY PRN MD CONSTIPATION; Start 09/05/16 at 18:30 Hydralazine HCl (Apresoline) 10 mg Q6H PRN IV ELEVATED BLOOD PRESSURE; Start at 18:30 Nitroglycerin (Nitroglycerin (Sl Tab) 0.4 Mg) 1 tab Q5M PRN SL ANGINA; Start at 18:30 Miscellaneous Information 1 ea NOTE XX ; Start 09/05/16 at 19:00 Glucose (Glutose) 15 gm Q15M PRN PO DECREASED GLUCOSE; Start 09/05/16 at 19:00 Glucose (Glutose) 22.5 gm Q15M PRN PO DECREASED GLUCOSE; Start 09/05/16 at 19: 00 Dextrose (D50w Syringe) 25 ml Q15M PRN IV DECREASED GLUCOSE; Start 09/05/16 at 19:00 Dextrose (D50w Syringe) 50 ml Q15M PRN IV DECREASED GLUCOSE; Start 09/05/16 at 19:00 Glucagon (Glucagen) 1 mg Q15M PRN IM DECREASED GLUCOSE; Start 09/05/16 at 19:00 Glucose 15 gm 15 gm Q15M PRN BUCCAL DECREASED GLUCOSE; Start 09/05/16 at 19:00 Ondansetron HCl/ Sodium Chloride (Zofran Inj/NS) 54 ml @ 216 mls/hr Q6H PRN IV NAUSEA AND/OR VOMITING Last administered on 09/07/16 17:27; Admin Dose 216 MLS/HR; Start 09/06/16 at 10:30 Pantoprazole 40 mg 40 mg BID@06,18 IV Last administered on 09/27/16 05:44; Admin Dose 40 MG; Start 09/08/16 at 18:00 Fat Emulsion Intravenous (Liposyn Ii 20%) 500 ml @ 20.833 mls/ hr Q24H IV Last administered on 09/26/16 19:47; Admin Dose 20.833 MLS/HR; Start 09/11/16 at 16:00 Hydrocortisone (Solu-Cortef) 50 mg Q8 IV Last administered on 09/27/16 05:44; Admin Dose 50 MG; Start 09/13/16 at 14:00 Lorazepam (Ativan) 1 mg Q4 PRN IV ANXIETY Last administered on 09/20/16 05:56 ; Admin Dose 1 MG; Start 09/14/16 at 06:30 Insulin Aspart (Novolog Insulin Pen) NOVOLOG *MILD* ALGORI... Q6 SC Last administered on 09/27/16 05:58; Admin Dose 4 UNIT; Start 09/16/16 at 00:00 Collagenase 1 applic 1 applic DAILY TOP Last administered on 09/26/16 09:54; Admin Dose 1 APPLIC; Start 09/17/16 at 09:00 Total Parenteral Nutrition (Tpn) 1,000 ml @ 40 mls/hr Q24H IV Last administered on 09/25/16 17:21; Admin Dose 40 MLS/HR; Start 09/19/16 at 16:00 Furosemide (Lasix) 20 mg DAILY IV Last administered on 09/25/16 08:30; Admin Dose 20 MG; Start 09/23/16 at 09:00 Enalaprilat 0.625 mg 0.625 mg Q8 IV Last administered on 09/25/16 13:32; Admin Dose 0.625 MG; Start 09/24/16 at 08:09 Dextrose 1,000 ml @ 50 mls/hr Q20H IV Last administered on 09/27/16 07:55; Admin Dose 50 MLS/HR; Start 09/26/16 at 09:00 Meropenem 100 ml @ 200 mls/hr Q8 IVPB Last administered on 09/27/16 05:44; Admin Dose 200 MLS/HR; Start 09/26/16 at 14:00 Fluconazole/ Sodium Chloride 50 ml @ 50 mls/hr Q24H IVPB Last administered on 13:19; Admin Dose 50 MLS/HR; Start 09/26/16 at 12:00 Phenylephrine HCl 80 mg/Dextrose 500 ml @ 0 mls/hr TITRATE IV Last administered on 09/27/16 07:47; Admin Dose 56.25 MLS/HR; Start 09/26/16 at 14: 30 Norepinephrine 32 mg/Dextrose 500 ml @ 0 mls/hr TITRATE IV Last administered on 09/27/16 07:49; Admin Dose 18.75 MLS/HR; Start 09/26/16 at 14:30 Vasopressin 60 unit/Dextrose 60 ml @ 1.2 mls/hr Q12H IV Last administered on 07:51; Admin Dose 1.2 MLS/HR; Start 09/26/16 at 14:30 Vancomycin HCl (Vancocin) 100 ml @ 100 mls/hr Q24H IVPB ; Start 09/27/16 at 12: 00 SKYLER ESTEVES 17, 2017 08:15
--- NOTE | 2016-09-27 08:30 | PN ---
Date/Time of Note Date/Time of Note DATE: 09/27/16 TIME: 08:29 Assessment/Plan VTE Prophylaxis VTE Prophylaxis Intervention: LMWH Lines/Catheters IV Catheter Type (from Nrs): PICC Line Central line still needed: Yes Urinary Cath still in place: No (Bilateral nephro tubes) Assessment/Plan Assessment/Plan 61 you F with stage 4 cervical cancer with mets to pelvis with resultant hydronephrosis warranting bl nephrostomy tube placement, mets to abdomen/pelvis causing obstruction of sigmoid colon, now with perforation initially admitted for septic shock. Also found to have LUE DVT, hypoxic respiratory failure. Pt with recurrence of shock 6.16, etiology unclear 1. Shock. Etiology unclear. WBCs not markedly elevated, hgb stable, CXR from 6.16 without evidence of new infiltrate cont pressors pt to unstable at this time to send for imaging pt already on vanc and meropenem, magana culture repeated last night 2. Post colonoscopy perforated viscus large pelvic mass invading colon wall site of perforation, contrast leakage to pelvic area, Contained perforation as no evidence of generalized peritonitis Abx as per ID GI and gen surg following 3. History of metastatic cervical cancer. Status post radiation and chemo. Currently, getting palliative chemotherapy. Palliative care already following the patient. 4. Hypochromic anemia. Etiology unclear. Status post PRBC transfusion. repeating labs 5. Chronic ureteral obstruction , s/p Bilateral nephrostomy tubes. Continue monitoring. 6. Acute respiratory failure. Pulmonology has been consulted, continue vent management-->EXTUBATED 6.14. NO REINTUBATION PER DISCUSSION WITH FAMILY AND PATIENT 6.16 7. Cardiomyopathy with ejection fraction of 20%. Cardiology following 8. Severe LE edema and anasarca 2/2 mass effect 9. Stage III sacral decubitus, continue wound care, repositioning as protocol 10. PICC associated DVT: LMWH Rationale for hydrocortisone unclear though given pt has been on this for >1 week and hypotension/shock, will continue at this time As per my note from yesterday evening, goals of care clarified yesterday evening given pt's critical status/decompensation. Pt and family refusing intubation Pt and family on board with DNR status. Prognosis grim. Subjective 24 Hr Interval Summary Free Text/Dictation Pt remains on O2 facemask, pressor requirements minimally improved. Exam/Review of Systems Vital Signs Vitals Vital Signs Date Time Temp Pulse Resp B/P Pulse Ox O2 Delivery O2 Flow Rate FiO2 09/27/16 07:59 124 44 100 Simple Mask 8.0 09/27/16 07:00 99/64 09/27/16 06:01 53 09/27/16 04:00 98.1 Intake and Output 09/26/16 09/26/16 09/27/16 15:00 23:00 07:00 Intake Total 2866.51 ml 2011.86 ml 1497.8 ml Output Total 50 ml 250 ml 70 ml Balance 2816.51 ml 1761.86 ml 1427.8 ml Exam wearing facemask no mrg lungs clear anterior palma no rashes +LE edema Results Result Diagram: 09/26/16 1510 09/27/16 0530 Results 24 hrs Laboratory Tests Test 09/26/16 09:37 09/26/16 12:26 09/26/16 15:10 09/26/16 15:37 Bedside Glucose 119 92 White Blood Count 3.7 #L Red Blood Count 2.31 #L Hemoglobin 7.7 #L Hematocrit 23.5 #L Mean Corpuscular Volume 101.7 H Mean Corpuscular Hemoglobin 33.3 H Mean Corpuscular Hemoglobin Concent 32.8 Red Cell Distribution Width 22.9 H Platelet Count 65 #L Mean Platelet Volume 13.2 H Neutrophils % 57.0 Band Neutrophils % 23.0 H Lymphocytes % 11.0 L Monocytes % 5.0 Eosinophils % 1.0 Metamyelocytes % 2.0 H Myelocytes % 1.0 H Nucleated Red Blood Cells % 37.0 H Neutrophils # 2.1 Lymphocytes # 0.4 L Monocytes # 0.2 L Eosinophils # 0.0 Metamyelocytes # 0.1 Myelocytes # 0.0 Polychromasia OCCASIONAL Macrocytosis 1+ Sodium Level 147 H Potassium Level 3.3 L Chloride Level 115 H Carbon Dioxide Level 26 Anion Gap 9 Blood Urea Nitrogen 41 H Creatinine 0.89 Glucose Level 156 Lactic Acid Level 5.6 *H Calcium Level 10.3 H Blood Gas Specimen Source Blood arterial Arterial Blood Date Drawn 09/26/2016 4:00:17 PM Arterial Blood pH (Temp corrected) 7.462 H Arterial Blood pCO2 (Temp correct) 32.6 L Arterial Blood pO2 (Temp corrected) 53.7 *L Arterial Blood HCO3 22.8 Arterial Blood Base Excess -0.8 Arterial Blood Oxygen Saturation 87.8 L Que Test ACCEPTAB Arterial Blood Gas Puncture Site Right Radial Arterial Blood Carboxyhemoglobin 0.3 Arterial Blood Methemoglobin 0.4 Blood Gas A-a O2 Differential 186.8 H Oxyhemoglobin Percent 87.2 L Total Hemoglobin 7.2 L Blood Gas Temperature 37.0 Blood Gas Modality NASAL CANNULA FiO2 39.0 Blood Gas Critical Value Read Back CAM RN Blood Gas Notified Whom CW Blood Gas Notified Time 09/26/2016 4:18:35 PM Test 09/26/16 17:20 09/26/16 23:30 09/27/16 05:30 09/27/16 05:54 Bedside Glucose 169 254 H 273 H Sodium Level 142 Potassium Level 3.8 Chloride Level 106 Carbon Dioxide Level 23 Anion Gap 17 #H Blood Urea Nitrogen 45 H Creatinine 0.94 Glucose Level 220 Calcium Level 11.1 H Phosphorus Level 4.1 Magnesium Level 1.9 Medications Medications Current Medications Acetaminophen (Tylenol Tab) 650 mg Q6H PRN PO PAIN LEVEL 1-3 OR FEVER; Start at 18:30 Morphine Sulfate (morphine) 2 mg Q4H PRN IV SEVERE PAIN LEVEL 7-10 Last administered on 09/26/16t 17:06; Admin Dose 2 MG; Start 09/05/16 at 18:30 Docusate Sodium (Colace) 100 mg Q12H PRN PO CONSTIPATION; Start 09/05/16 at 18: 30 Magnesium Hydroxide (Milk Of Mag) 30 ml DAILY PRN PO CONSTIPATION; Start at 18:30 Sodium Biphosphate/ Sodium Phosphate (Fleet Enema) 133 ml DAILY PRN [place] CONSTIPATION; Start 09/05/16 at 18:30 Hydralazine HCl (Apresoline) 10 mg Q6H PRN IV ELEVATED BLOOD PRESSURE; Start at 18:30 Nitroglycerin (Nitroglycerin (Sl Tab) 0.4 Mg) 1 tab Q5M PRN SL ANGINA; Start at 18:30 Miscellaneous Information 1 ea NOTE XX ; Start 09/05/16 at 19:00 Glucose (Glutose) 15 gm Q15M PRN PO DECREASED GLUCOSE; Start 09/05/16 at 19:00 Glucose (Glutose) 22.5 gm Q15M PRN PO DECREASED GLUCOSE; Start 09/05/16 at 19: 00 Dextrose (D50w Syringe) 25 ml Q15M PRN IV DECREASED GLUCOSE; Start 09/05/16 at 19:00 Dextrose (D50w Syringe) 50 ml Q15M PRN IV DECREASED GLUCOSE; Start 09/05/16 at 19:00 Glucagon (Glucagen) 1 mg Q15M PRN IM DECREASED GLUCOSE; Start 09/05/16 at 19:00 Glucose 15 gm 15 gm Q15M PRN BUCCAL DECREASED GLUCOSE; Start 09/05/16 at 19:00 Ondansetron HCl/ Sodium Chloride (Zofran Inj/NS) 54 ml @ 216 mls/hr Q6H PRN IV NAUSEA AND/OR VOMITING Last administered on 09/07/16 17:27; Admin Dose 216 MLS/HR; Start 09/06/16 at 10:30 Pantoprazole 40 mg 40 mg BID@06,18 IV Last administered on 09/27/16 05:44; Admin Dose 40 MG; Start 09/08/16 at 18:00 Fat Emulsion Intravenous (Liposyn Ii 20%) 500 ml @ 20.833 mls/ hr Q24H IV Last administered on 09/26/16 19:47; Admin Dose 20.833 MLS/HR; Start 09/11/16 at 16:00 Hydrocortisone (Solu-Cortef) 50 mg Q8 IV Last administered on 09/27/16 05:44; Admin Dose 50 MG; Start 09/13/16 at 14:00 Lorazepam (Ativan) 1 mg Q4 PRN IV ANXIETY Last administered on 09/20/16 05:56 ; Admin Dose 1 MG; Start 09/14/16 at 06:30 Insulin Aspart (Novolog Insulin Pen) NOVOLOG *MILD* ALGORI... Q6 SC Last administered on 09/27/16 05:58; Admin Dose 4 UNIT; Start 09/16/16 at 00:00 Collagenase 1 applic 1 applic DAILY TOP Last administered on 09/26/16 09:54; Admin Dose 1 APPLIC; Start 09/17/16 at 09:00 Total Parenteral Nutrition (Tpn) 1,000 ml @ 40 mls/hr Q24H IV Last administered on 09/25/16 17:21; Admin Dose 40 MLS/HR; Start 09/19/16 at 16:00 Furosemide (Lasix) 20 mg DAILY IV Last administered on 09/25/16 08:30; Admin Dose 20 MG; Start 09/23/16 at 09:00 Enalaprilat 0.625 mg 0.625 mg Q8 IV Last administered on 09/25/16 13:32; Admin Dose 0.625 MG; Start 09/24/16 at 08:09 Dextrose 1,000 ml @ 50 mls/hr Q20H IV Last administered on 09/27/16 07:55; Admin Dose 50 MLS/HR; Start 09/26/16 at 09:00 Meropenem 100 ml @ 200 mls/hr Q8 IVPB Last administered on 09/27/16 05:44; Admin Dose 200 MLS/HR; Start 09/26/16 at 14:00 Fluconazole/ Sodium Chloride 50 ml @ 50 mls/hr Q24H IVPB Last administered on 13:19; Admin Dose 50 MLS/HR; Start 09/26/16 at 12:00 Phenylephrine HCl 80 mg/Dextrose 500 ml @ 0 mls/hr TITRATE IV Last administered on 09/27/16 07:47; Admin Dose 56.25 MLS/HR; Start 09/26/16 at 14: 30 Norepinephrine 32 mg/Dextrose 500 ml @ 0 mls/hr TITRATE IV Last administered on 09/27/16 07:49; Admin Dose 18.75 MLS/HR; Start 09/26/16 at 14:30 Vasopressin 60 unit/Dextrose 60 ml @ 1.2 mls/hr Q12H IV Last administered on 07:51; Admin Dose 1.2 MLS/HR; Start 09/26/16 at 14:30 Vancomycin HCl (Vancocin) 100 ml @ 100 mls/hr Q24H IVPB ; Start 09/27/16 at 12: 00 HAILE CHAPARRO MD Sep 27, 2016 08:30 HAILE CHAPARRO MD Sep 27, 2016 08:30
[2016-09-27 08:57] LABS: ADD SCAN DIFF NO
[2016-09-27] MEDS: FUROSEMIDE 20 MG INJ IV SCH (09:00)
[2016-09-27] MEDS: HEPARIN 5,000 UNIT/0.5 ML VIAL SC SCH ×2 (09:06→21:42)
[2016-09-27 09:08] LABS: ABNORMAL IP MESSAGE 1; BASOPHILS % 0.4 % (0.0-2.0); EOSINOPHILS # 0.4 10^3/ul (0.0-0.5); EOSINOPHILS % 5.3 % (0.0-7.0); HEMATOCRIT 26.8 % (37.0-47.0); LYMPHOCYTES # 0.3 10^3/ul (0.8-2.9); LYMPHOCYTES % 3.6 % (15.0-51.0); MEAN CORPUSCULAR HEMOGLOBIN 38.6 pg (29.0-33.0); MEAN CORPUSCULAR VOLUME 100.4 fl (82.0-101.0); MONOCYTE # 0.2 10^3/ul (0.3-0.9); MONOCYTES % 2.4 % (0.0-11.0); NEUTROPHIL # 6.9 10^3/ul (1.6-7.5); NEUTROPHILS % 86.7 % (39.0-77.0); NUCLEATED RED BLOOD CELLS # 1.4 10^3/ul (0.0-0.0); NUCLEATED RED BLOOD CELLS% 17.4 /100WBC (0.0-0.0); PLATELET COUNT 61 10^3/UL (140-415); RED BLOOD COUNT 2.67 10^6/ul (4.20-5.40); RED CELL DISTRIBUTION WIDTH 22.9 % (11.5-14.5)
[2016-09-27] MEDS: ENOXAPARIN 100 MG/ML SYG SC SCH ×2 (09:08→21:43)
[2016-09-27 09:18] LABS: HEMOGLOBIN 10.3 g/dl (12.0-16.0); MEAN CORPUSCULAR HGB CONC 38.4 g/dl (32.0-37.0)
--- NOTE | 2016-09-27 09:34 | CONS ---
Date/Time of Note Date/Time of Note DATE: 09/27/16 TIME: 09:32 Consult Date/Type/Reason Admit Date/Time September 05, 2016 at 16:23 Initial Consult Date 09/06/16 Type of Consultation: neph Ordering Provider: MORIAH GARRIDO The patient was transferred to the intensive care unit to telemetry. Patient condition is critical. Still requiring high-dose pressor support. Patient exhibiting poor mental status. OBJECTIVE: HEENT: Head is normocephalic. NECK: Supple. HEART: Regular rate. LUNGS: Showed diminished breath sounds at the base. ABDOMEN: Soft, nontender to palpation. No rebound or guarding. EXTREMITIES: Negative for clubbing or cyanosis. Positive edema. DERMATOLOGIC: No rashes. MUSCULOSKELETAL: Have no joint effusion. NEUROLOGIC: No change in exam. MEDICATIONS: The patient's medication were reviewed. Objective Vital Signs Date Time Temp Pulse Resp B/P Pulse Ox O2 Delivery O2 Flow Rate FiO2 09/27/16 09:15 110 49 88/55 100 Mask 8.0 09/27/16 08:00 99.6 09/27/16 06:01 53 Intake and Output 09/26/16 09/26/16 09/27/16 15:00 23:00 07:00 Intake Total 2866.51 ml 2011.86 ml 1497.8 ml Output Total 50 ml 250 ml 70 ml Balance 2816.51 ml 1761.86 ml 1427.8 ml Results/Medications Result Diagram: 09/27/16 0530 09/27/16 0530 Results 24 hrs Laboratory Tests Test 09/26/16 09:37 09/26/16 12:26 09/26/16 15:10 09/26/16 15:37 Bedside Glucose 119 92 White Blood Count 3.7 #L Red Blood Count 2.31 #L Hemoglobin 7.7 #L Hematocrit 23.5 #L Mean Corpuscular Volume 101.7 H Mean Corpuscular Hemoglobin 33.3 H Mean Corpuscular Hemoglobin Concent 32.8 Red Cell Distribution Width 22.9 H Platelet Count 65 #L Mean Platelet Volume 13.2 H Neutrophils % 57.0 Band Neutrophils % 23.0 H Lymphocytes % 11.0 L Monocytes % 5.0 Eosinophils % 1.0 Metamyelocytes % 2.0 H Myelocytes % 1.0 H Nucleated Red Blood Cells % 37.0 H Neutrophils # 2.1 Lymphocytes # 0.4 L Monocytes # 0.2 L Eosinophils # 0.0 Metamyelocytes # 0.1 Myelocytes # 0.0 Polychromasia OCCASIONAL Macrocytosis 1+ Sodium Level 147 H Potassium Level 3.3 L Chloride Level 115 H Carbon Dioxide Level 26 Anion Gap 9 Blood Urea Nitrogen 41 H Creatinine 0.89 Glucose Level 156 Lactic Acid Level 5.6 *H Calcium Level 10.3 H Blood Gas Specimen Source Blood arterial Arterial Blood Date Drawn 09/26/2016 4:00:17 PM Arterial Blood pH (Temp corrected) 7.462 H Arterial Blood pCO2 (Temp correct) 32.6 L Arterial Blood pO2 (Temp corrected) 53.7 *L Arterial Blood HCO3 22.8 Arterial Blood Base Excess -0.8 Arterial Blood Oxygen Saturation 87.8 L Que Test ACCEPTAB Arterial Blood Gas Puncture Site Right Radial Arterial Blood Carboxyhemoglobin 0.3 Arterial Blood Methemoglobin 0.4 Blood Gas A-a O2 Differential 186.8 H Oxyhemoglobin Percent 87.2 L Total Hemoglobin 7.2 L Blood Gas Temperature 37.0 Blood Gas Modality NASAL CANNULA FiO2 39.0 Blood Gas Critical Value Read Back CAM RN Blood Gas Notified Whom CW Blood Gas Notified Time 09/26/2016 4:18:35 PM Test 09/26/16 17:20 09/26/16 23:30 09/27/16 05:30 09/27/16 05:54 Bedside Glucose 169 254 H 273 H White Blood Count 8.0 # Red Blood Count 2.67 L Hemoglobin 10.3 #L Hematocrit 26.8 L Mean Corpuscular Volume 100.4 Mean Corpuscular Hemoglobin 38.6 H Mean Corpuscular Hemoglobin Concent 38.4 H Red Cell Distribution Width 22.9 H Platelet Count 61 L Mean Platelet Volume Neutrophils % 86.7 H Lymphocytes % 3.6 L Monocytes % 2.4 Eosinophils % 5.3 Basophils % 0.4 Nucleated Red Blood Cells % 17.4 H Neutrophils # 6.9 Lymphocytes # 0.3 L Monocytes # 0.2 L Eosinophils # 0.4 Basophils # 0.0 Nucleated Red Blood Cells # 1.4 H Sodium Level 142 Potassium Level 3.8 Chloride Level 106 Carbon Dioxide Level 23 Anion Gap 17 #H Blood Urea Nitrogen 45 H Creatinine 0.94 Glucose Level 220 Calcium Level 11.1 H Phosphorus Level 4.1 Magnesium Level 1.9 Medications Current Medications Acetaminophen (Tylenol Tab) 650 mg Q6H PRN PO PAIN LEVEL 1-3 OR FEVER; Start at 18:30 Morphine Sulfate (morphine) 2 mg Q4H PRN IV SEVERE PAIN LEVEL 7-10 Last administered on 09/26/16 17:06; Admin Dose 2 MG; Start 09/05/16 at 18:30 Docusate Sodium (Colace) 100 mg Q12H PRN PO CONSTIPATION; Start 09/05/16 at 18: 30 Magnesium Hydroxide (Milk Of Mag) 30 ml DAILY PRN PO CONSTIPATION; Start at 18:30 Sodium Biphosphate/ Sodium Phosphate (Fleet Enema) 133 ml DAILY PRN [place] CONSTIPATION; Start 09/05/16 at 18:30 Hydralazine HCl (Apresoline) 10 mg Q6H PRN IV ELEVATED BLOOD PRESSURE; Start at 18:30 Nitroglycerin (Nitroglycerin (Sl Tab) 0.4 Mg) 1 tab Q5M PRN SL ANGINA; Start at 18:30 Miscellaneous Information 1 ea NOTE XX ; Start 09/05/16 at 19:00 Glucose (Glutose) 15 gm Q15M PRN PO DECREASED GLUCOSE; Start 09/05/16 at 19:00 Glucose (Glutose) 22.5 gm Q15M PRN PO DECREASED GLUCOSE; Start 09/05/16 at 19: 00 Dextrose (D50w Syringe) 25 ml Q15M PRN IV DECREASED GLUCOSE; Start 09/05/16 at 19:00 Dextrose (D50w Syringe) 50 ml Q15M PRN IV DECREASED GLUCOSE; Start 09/05/16 at 19:00 Glucagon (Glucagen) 1 mg Q15M PRN IM DECREASED GLUCOSE; Start 09/05/16 at 19:00 Glucose 15 gm 15 gm Q15M PRN BUCCAL DECREASED GLUCOSE; Start 09/05/16 at 19:00 Ondansetron HCl/ Sodium Chloride (Zofran Inj/NS) 54 ml @ 216 mls/hr Q6H PRN IV NAUSEA AND/OR VOMITING Last administered on 09/07/16 17:27; Admin Dose 216 MLS/HR; Start 09/06/16 at 10:30 Pantoprazole 40 mg 40 mg BID@06,18 IV Last administered on 09/27/16 05:44; Admin Dose 40 MG; Start 09/08/16 at 18:00 Fat Emulsion Intravenous (Liposyn Ii 20%) 500 ml @ 20.833 mls/ hr Q24H IV Last administered on 09/26/16 19:47; Admin Dose 20.833 MLS/HR; Start 09/11/16 at 16:00 Hydrocortisone (Solu-Cortef) 50 mg Q8 IV Last administered on 09/27/16 05:44; Admin Dose 50 MG; Start 09/13/16 at 14:00 Lorazepam (Ativan) 1 mg Q4 PRN IV ANXIETY Last administered on 09/20/16 05:56 ; Admin Dose 1 MG; Start 09/14/16 at 06:30 Insulin Aspart (Novolog Insulin Pen) NOVOLOG *MILD* ALGORI... Q6 SC Last administered on 09/27/16 05:58; Admin Dose 4 UNIT; Start 09/16/16 at 00:00 Collagenase 1 applic 1 applic DAILY TOP Last administered on 09/26/16 09:54; Admin Dose 1 APPLIC; Start 09/17/16 at 09:00 Total Parenteral Nutrition (Tpn) 1,000 ml @ 40 mls/hr Q24H IV Last administered on 09/25/16 17:21; Admin Dose 40 MLS/HR; Start 09/19/16 at 16:00 Furosemide (Lasix) 20 mg DAILY IV Last administered on 09/25/16 08:30; Admin Dose 20 MG; Start 09/23/16 at 09:00 Enalaprilat 0.625 mg 0.625 mg Q8 IV Last administered on 09/25/16 13:32; Admin Dose 0.625 MG; Start 09/24/16 at 08:09 Dextrose 1,000 ml @ 50 mls/hr Q20H IV Last administered on 09/27/16 07:55; Admin Dose 50 MLS/HR; Start 09/26/16 at 09:00 Meropenem 100 ml @ 200 mls/hr Q8 IVPB Last administered on 09/27/16 05:44; Admin Dose 200 MLS/HR; Start 09/26/16 at 14:00 Fluconazole/ Sodium Chloride 50 ml @ 50 mls/hr Q24H IVPB Last administered on 13:19; Admin Dose 50 MLS/HR; Start 09/26/16 at 12:00 Phenylephrine HCl 80 mg/Dextrose 500 ml @ 0 mls/hr TITRATE IV Last administered on 09/27/16 07:47; Admin Dose 56.25 MLS/HR; Start 09/26/16 at 14: 30 Norepinephrine 32 mg/Dextrose 500 ml @ 0 mls/hr TITRATE IV Last administered on 09/27/16 07:49; Admin Dose 18.75 MLS/HR; Start 09/26/16 at 14:30 Vasopressin 60 unit/Dextrose 60 ml @ 1.2 mls/hr Q12H IV Last administered on 07:51; Admin Dose 1.2 MLS/HR; Start 09/26/16 at 14:30 Vancomycin HCl (Vancocin) 100 ml @ 100 mls/hr Q24H IVPB ; Start 09/27/16 at 12: 00 Heparin Sodium (Porcine) (Heparin (5000 Units/0.5 ml)) 5,000 unit BID SC Last administered on 09/27/16 09:06; Admin Dose 5,000 UNIT; Start 09/27/16 at 09:00 Enoxaparin Sodium (Lovenox) 100 mg Q12 SC Last administered on 09/27/16 09:08 ; Admin Dose 100 MG; Start 09/27/16 at 09:00 Assessment/Plan Chief Complaint/Hosp Course 1. Nonoliguric acute kidney injury. Etiology is secondary to acute tubular necrosis. Renal function has improved. The patient does have underlying azotemia. This may be multifactorial due to hypercatabolic state and diuretic therapy. At this point continue to monitor closely. 2. Bilateral hydronephrosis. Status post nephrostomy tubes. Continue to monitor. Urology has evaluated the patient. 3. Hypernatremia. Etiology is secondary to insensible losses. Will start the patient on D5W at 50 mL an hour. Continue to adjust hypertonic fluids per pharmacy. 4. Volume overload/congestive heart failure and mass effect. Continue low dose diuretic therapy. 5. Respiratory failure. Status post extubation. Clinically stable. Continue to monitor. 6. Dysphagia. The patient is currently on TPN. Continue to monitor. 7. Coronary artery disease. Continue the current treatment plan. 8. Anemia. Continue to monitor hemoglobin and hematocrit levels. 9. Mineral bone disorder. The patient is hypercalcemic. This may be due to immobilization or from metastatic disease. Continue to monitor. Consider bisphosphonate. 10. Metastatic cancer. The patient is status post radiation and chemotherapy, getting palliative chemotherapy at this time. Continue to monitor. 11. Perforated viscus secondary to colonoscopy. No plans for surgical intervention at this time. Will continue to observe. 12. Status post shock. Problems: ZANE HOLLINS MD Sep 27, 2016 09:34
[2016-09-27] MEDS ORDERED: VANCOMYCIN 500MG/NS (PMX) 100 ML IVPB SCH (11:00)
[2016-09-27] MEDS: VANCOMYCIN 500MG/NS (PMX) 100 ML IVPB SCH (11:11)
--- NOTE | 2016-09-27 11:15 | CONS ---
Date/Time of Note Date/Time of Note DATE: 09/27/16 TIME: 11:13 Assessment/Plan Assessment/Plan Chief Complaint/Hosp Course 1. Septic shock, currently blood pressure improved. 2. Hypoxemic respiratory failure, currently extubated now. 3. Severe cardiomyopathy, etiology unclear, probably nonischemic. 4. Electrolyte abnormalities with hypernatremia, has been improved. 5. Fluid overload, congestive heart failure, on diuretics. 6. Mildly abnormal troponin secondary to above. 7. Encephalopathy. 8. Metastatic cervical cancer. 9. Malnutrition and perforated bowel. Problems: Additional Assessment/Plan 1) off JB and beta chance due to hypotension 2) off diuresis 3) tachycardia likely result of pressor therapy, will monitor Consultation Date/Type/Reason Admit Date/Time September 05, 2016 at 16:23 Initial Consult Date 09/23/16 Type of Consultation: cv Referring Provider: MORIAH GARRIDO 24 HR Interval Summary Subjective hx not possible: pt critical Detailed Summary Respiratory: no complaints Cardiovascular: no complaints Musculoskeletal: no complaints Neurologic: no complaints Exam/Review of Systems Vital Signs Vitals Vital Signs Date Time Temp Pulse Resp B/P Pulse Ox O2 Delivery O2 Flow Rate FiO2 09/27/16 11:00 103 44 104/61 100 Mask 8.0 09/27/16 08:00 99.6 09/27/16 06:01 53 Intake and Output 09/26/16 09/26/16 09/27/16 15:00 23:00 07:00 Intake Total 2866.51 ml 2011.86 ml 1497.8 ml Output Total 50 ml 250 ml 70 ml Balance 2816.51 ml 1761.86 ml 1427.8 ml Exam Constitutional: frail Head: atraumatic, normocephalic Neck: supple Respiratory: diminished breath sounds Cardiovascular: gallop Gastrointestinal: distended Musculoskeletal: nl extremities to inspection Extremities: normal pulses Results Result Diagram: 09/27/16 0530 09/27/16 0530 Results 24 hrs Laboratory Tests Test 09/26/16 12:26 09/26/16 15:10 09/26/16 15:37 09/26/16 17:20 Bedside Glucose 92 169 White Blood Count 3.7 #L Red Blood Count 2.31 #L Hemoglobin 7.7 #L Hematocrit 23.5 #L Mean Corpuscular Volume 101.7 H Mean Corpuscular Hemoglobin 33.3 H Mean Corpuscular Hemoglobin Concent 32.8 Red Cell Distribution Width 22.9 H Platelet Count 65 #L Mean Platelet Volume 13.2 H Neutrophils % 57.0 Band Neutrophils % 23.0 H Lymphocytes % 11.0 L Monocytes % 5.0 Eosinophils % 1.0 Metamyelocytes % 2.0 H Myelocytes % 1.0 H Nucleated Red Blood Cells % 37.0 H Neutrophils # 2.1 Lymphocytes # 0.4 L Monocytes # 0.2 L Eosinophils # 0.0 Metamyelocytes # 0.1 Myelocytes # 0.0 Polychromasia OCCASIONAL Macrocytosis 1+ Sodium Level 147 H Potassium Level 3.3 L Chloride Level 115 H Carbon Dioxide Level 26 Anion Gap 9 Blood Urea Nitrogen 41 H Creatinine 0.89 Glucose Level 156 Lactic Acid Level 5.6 *H Calcium Level 10.3 H Blood Gas Specimen Source Blood arterial Arterial Blood Date Drawn 09/26/2016 4:00:17 PM Arterial Blood pH (Temp corrected) 7.462 H Arterial Blood pCO2 (Temp correct) 32.6 L Arterial Blood pO2 (Temp corrected) 53.7 *L Arterial Blood HCO3 22.8 Arterial Blood Base Excess -0.8 Arterial Blood Oxygen Saturation 87.8 L Que Test ACCEPTAB Arterial Blood Gas Puncture Site Right Radial Arterial Blood Carboxyhemoglobin 0.3 Arterial Blood Methemoglobin 0.4 Blood Gas A-a O2 Differential 186.8 H Oxyhemoglobin Percent 87.2 L Total Hemoglobin 7.2 L Blood Gas Temperature 37.0 Blood Gas Modality NASAL CANNULA FiO2 39.0 Blood Gas Critical Value Read Back CAM RN Blood Gas Notified Whom Blood Gas Notified Time 09/26/2016 4:18:35 PM Test 09/26/16 23:30 09/27/16 05:30 09/27/16 05:54 Bedside Glucose 254 H 273 H White Blood Count 8.0 # Red Blood Count 2.67 L Hemoglobin 10.3 #L Hematocrit 26.8 L Mean Corpuscular Volume 100.4 Mean Corpuscular Hemoglobin 38.6 H Mean Corpuscular Hemoglobin Concent 38.4 H Red Cell Distribution Width 22.9 H Platelet Count 61 L Mean Platelet Volume Neutrophils % 86.7 H Lymphocytes % 3.6 L Monocytes % 2.4 Eosinophils % 5.3 Basophils % 0.4 Nucleated Red Blood Cells % 17.4 H Neutrophils # 6.9 Lymphocytes # 0.3 L Monocytes # 0.2 L Eosinophils # 0.4 Basophils # 0.0 Nucleated Red Blood Cells # 1.4 H Sodium Level 142 Potassium Level 3.8 Chloride Level 106 Carbon Dioxide Level 23 Anion Gap 17 #H Blood Urea Nitrogen 45 H Creatinine 0.94 Glucose Level 220 Calcium Level 11.1 H Phosphorus Level 4.1 Magnesium Level 1.9 Medications Medications Current Medications Acetaminophen (Tylenol Tab) 650 mg Q6H PRN PO PAIN LEVEL 1-3 OR FEVER; Start at 18:30 Morphine Sulfate (morphine) 2 mg Q4H PRN IV SEVERE PAIN LEVEL 7-10 Last administered on 09/26/16t 17:06; Admin Dose 2 MG; Start 09/05/16 at 18:30 Docusate Sodium (Colace) 100 mg Q12H PRN PO CONSTIPATION; Start 09/05/16 at 18: 30 Magnesium Hydroxide (Milk Of Mag) 30 ml DAILY PRN PO CONSTIPATION; Start at 18:30 Sodium Biphosphate/ Sodium Phosphate (Fleet Enema) 133 ml DAILY PRN [place] CONSTIPATION; Start 09/05/16 at 18:30 Hydralazine HCl (Apresoline) 10 mg Q6H PRN IV ELEVATED BLOOD PRESSURE; Start at 18:30 Nitroglycerin (Nitroglycerin (Sl Tab) 0.4 Mg) 1 tab Q5M PRN SL ANGINA; Start at 18:30 Miscellaneous Information 1 ea NOTE XX ; Start 09/05/16 at 19:00 Glucose (Glutose) 15 gm Q15M PRN PO DECREASED GLUCOSE; Start 09/05/16 at 19:00 Glucose (Glutose) 22.5 gm Q15M PRN PO DECREASED GLUCOSE; Start 09/05/16 at 19: 00 Dextrose (D50w Syringe) 25 ml Q15M PRN IV DECREASED GLUCOSE; Start 09/05/16 at 19:00 Dextrose (D50w Syringe) 50 ml Q15M PRN IV DECREASED GLUCOSE; Start 09/05/16 at 19:00 Glucagon (Glucagen) 1 mg Q15M PRN IM DECREASED GLUCOSE; Start 09/05/16 at 19:00 Glucose 15 gm 15 gm Q15M PRN BUCCAL DECREASED GLUCOSE; Start 09/05/16 at 19:00 Ondansetron HCl/ Sodium Chloride (Zofran Inj/NS) 54 ml @ 216 mls/hr Q6H PRN IV NAUSEA AND/OR VOMITING Last administered on 09/07/16 17:27; Admin Dose 216 MLS/HR; Start 09/06/16 at 10:30 Pantoprazole 40 mg 40 mg BID@06,18 IV Last administered on 09/27/16 05:44; Admin Dose 40 MG; Start 09/08/16 at 18:00 Fat Emulsion Intravenous (Liposyn Ii 20%) 500 ml @ 20.833 mls/ hr Q24H IV Last administered on 09/26/16 19:47; Admin Dose 20.833 MLS/HR; Start 09/11/16 at 16:00 Hydrocortisone (Solu-Cortef) 50 mg Q8 IV Last administered on 09/27/16 05:44; Admin Dose 50 MG; Start 09/13/16 at 14:00 Lorazepam (Ativan) 1 mg Q4 PRN IV ANXIETY Last administered on 09/20/16 05:56 ; Admin Dose 1 MG; Start 09/14/16 at 06:30 Insulin Aspart (Novolog Insulin Pen) NOVOLOG *MILD* ALGORI... Q6 SC Last administered on 09/27/16 05:58; Admin Dose 4 UNIT; Start 09/16/16 at 00:00 Collagenase 1 applic 1 applic DAILY TOP Last administered on 09/26/16 09:54; Admin Dose 1 APPLIC; Start 09/17/16 at 09:00 Total Parenteral Nutrition (Tpn) 1,000 ml @ 40 mls/hr Q24H IV Last administered on 09/25/16 17:21; Admin Dose 40 MLS/HR; Start 09/19/16 at 16:00 Furosemide (Lasix) 20 mg DAILY IV Last administered on 09/25/16 08:30; Admin Dose 20 MG; Start 09/23/16 at 09:00 Enalaprilat 0.625 mg 0.625 mg Q8 IV Last administered on 09/25/16 13:32; Admin Dose 0.625 MG; Start 09/24/16 at 08:09 Dextrose 1,000 ml @ 50 mls/hr Q20H IV Last administered on 09/27/16 07:55; Admin Dose 50 MLS/HR; Start 09/26/16 at 09:00 Meropenem 100 ml @ 200 mls/hr Q8 IVPB Last administered on 09/27/16 05:44; Admin Dose 200 MLS/HR; Start 09/26/16 at 14:00 Fluconazole/ Sodium Chloride 50 ml @ 50 mls/hr Q24H IVPB Last administered on 13:19; Admin Dose 50 MLS/HR; Start 09/26/16 at 12:00 Phenylephrine HCl 80 mg/Dextrose 500 ml @ 0 mls/hr TITRATE IV Last administered on 09/27/16 07:47; Admin Dose 56.25 MLS/HR; Start 09/26/16 at 14: 30 Norepinephrine 32 mg/Dextrose 500 ml @ 0 mls/hr TITRATE IV Last administered on 09/27/16 07:49; Admin Dose 18.75 MLS/HR; Start 09/26/16 at 14:30 Vasopressin 60 unit/Dextrose 60 ml @ 1.2 mls/hr Q12H IV Last administered on 07:51; Admin Dose 1.2 MLS/HR; Start 09/26/16 at 14:30 Vancomycin HCl (Vancocin) 100 ml @ 100 mls/hr Q24H IVPB Last administered on 11:11; Admin Dose 100 MLS/HR; Start 09/27/16 at 12:00 Heparin Sodium (Porcine) (Heparin (5000 Units/0.5 ml)) 5,000 unit BID SC Last administered on 09/27/16 09:06; Admin Dose 5,000 UNIT; Start 09/27/16 at 09:00 Enoxaparin Sodium (Lovenox) 100 mg Q12 SC Last administered on 09/27/16 09:08 ; Admin Dose 100 MG; Start 09/27/16 at 09:00 KARY CRAVEN MD Sep 27, 2016 11:15
[2016-09-27] MEDS: FLUCONAZOLE 100 MG/NS (PMX) 50 ML IVPB SCH (12:30)
[2016-09-27] MEDS: morphine 2 MG INJ IV PRN (13:16)
[2016-09-27] MEDS: COLLAGENASE 30 GM TUBE TOP SCH (13:20)
--- NOTE | 2016-09-27 14:34 | CONS ---
Date/Time of Note Date/Time of Note DATE: 09/27/16 TIME: 14:33 Assessment/Plan Assessment/Plan Chief Complaint/Hosp Course ID PROGRESS NOTE ABX DAY # Vanco IV + Merrem + Fluconazole => Pt is on TPN 24H INTERVAL SUMMARY * O2 via NC, lethargic, generalized weakness, low grade temps 99.2 - 99.+ * Transferred to ICU yesterday for hypotension - lactic acid 5.7 * CXR 09/26: Stable patchy infiltrates in the bilateral lower lobes. * MICRO: BCX 09/26 (+) BLOOD CULTURE Preliminary BCULT GRAM BOTTLE 1 Gram negative rods . seen on gram stain of the broth Organism 1 GRAM NEGATIVE DOM PHYSICAL EXAMINATION: GENERAL: VSS, NAD, no fever HEENT: (+)NGT, O2 via NC NECK: Trach-> midline CHEST: Equal chest rise bilaterally, without dyspnea on observation HEART: Pulse RRR ABDOMEN: Soft EXTREMITIES: Warm SKIN: Warm, dry ID ASSESSMENT: 61 yo F admitted with: 1. Severe sepsis w/hypotension, (+)GNR septicemia * 09/26/16 BCX (+) BLOOD CULTURE Preliminary BCULT GRAM BOTTLE 1 Gram negative rods . seen on gram stain of the broth Organism 1 GRAM NEGATIVE DOM 2. Large pelvic mass/ metastatic cervical cancer 3. Proximal sigmoid colon obstruction with perforation. 4. Urinary tract infection, per urinalysis. 5. Acute renal failure w/obstructive uropathy -> s/p bilateral nephrostomy tubes 6. LUE DVT with PICC present 7. Acute hypoxic respiratory failure w/possible aspiration pneumonitis ABX ALLERGIES: KNDA INVASIVES: *PIV, NG tube, PICC line, placed 09/11/2016, right chest Port-A-Cath , B nephrostomies. CURRENT ABX: ABX DAY # Vanco IV + Merrem + Fluconazole ID RECOMMENDATIONS: 1. Continue current ABX 2. Per notes overall prognosis poor . Problems: Consultation Date/Type/Reason Admit Date/Time September 05, 2016 at 16:23 Initial Consult Date 09/23/16 Type of Consultation: ID Referring Provider: MORIAH GARRIDO Exam/Review of Systems Vital Signs Vitals Vital Signs Date Time Temp Pulse Resp B/P Pulse Ox O2 Delivery O2 Flow Rate FiO2 09/27/16 14:25 99 40 100 Nasal Cannula 5.0 6/17/17 14:00 92/55 09/27/16 12:00 98.6 09/27/16 06:01 53 Intake and Output 09/26/16 09/26/16 09/27/16 15:00 23:00 07:00 Intake Total 2866.51 ml 2011.86 ml 1497.8 ml Output Total 50 ml 250 ml 70 ml Balance 2816.51 ml 1761.86 ml 1427.8 ml Results Result Diagram: 09/27/16 0530 09/27/16 0530 Results 24 hrs Laboratory Tests Test 09/26/16 15:10 09/26/16 15:37 09/26/16 17:20 09/26/16 23:30 White Blood Count 3.7 #L Red Blood Count 2.31 #L Hemoglobin 7.7 #L Hematocrit 23.5 #L Mean Corpuscular Volume 101.7 H Mean Corpuscular Hemoglobin 33.3 H Mean Corpuscular Hemoglobin Concent 32.8 Red Cell Distribution Width 22.9 H Platelet Count 65 #L Mean Platelet Volume 13.2 H Neutrophils % 57.0 Band Neutrophils % 23.0 H Lymphocytes % 11.0 L Monocytes % 5.0 Eosinophils % 1.0 Metamyelocytes % 2.0 H Myelocytes % 1.0 H Nucleated Red Blood Cells % 37.0 H Neutrophils # 2.1 Lymphocytes # 0.4 L Monocytes # 0.2 L Eosinophils # 0.0 Metamyelocytes # 0.1 Myelocytes # 0.0 Polychromasia OCCASIONAL Macrocytosis 1+ Sodium Level 147 H Potassium Level 3.3 L Chloride Level 115 H Carbon Dioxide Level 26 Anion Gap 9 Blood Urea Nitrogen 41 H Creatinine 0.89 Glucose Level 156 Lactic Acid Level 5.6 *H Calcium Level 10.3 H Blood Gas Specimen Source Blood arterial Arterial Blood Date Drawn 09/26/2016 4:00:17 PM Arterial Blood pH (Temp corrected) 7.462 H Arterial Blood pCO2 (Temp correct) 32.6 L Arterial Blood pO2 (Temp corrected) 53.7 *L Arterial Blood HCO3 22.8 Arterial Blood Base Excess -0.8 Arterial Blood Oxygen Saturation 87.8 L Que Test ACCEPTAB Arterial Blood Gas Puncture Site Right Radial Arterial Blood Carboxyhemoglobin 0.3 Arterial Blood Methemoglobin 0.4 Blood Gas A-a O2 Differential 186.8 H Oxyhemoglobin Percent 87.2 L Total Hemoglobin 7.2 L Blood Gas Temperature 37.0 Blood Gas Modality NASAL CANNULA FiO2 39.0 Blood Gas Critical Value Read Back CAM RN Blood Gas Notified Whom CW Blood Gas Notified Time 09/26/2016 4:18:35 PM Bedside Glucose 169 254 H Test 09/27/16 05:30 09/27/16 05:54 09/27/16 09:35 White Blood Count 8.0 # Red Blood Count 2.67 L Hemoglobin 10.3 #L Hematocrit 26.8 L Mean Corpuscular Volume 100.4 Mean Corpuscular Hemoglobin 38.6 H Mean Corpuscular Hemoglobin Concent 38.4 H Red Cell Distribution Width 22.9 H Platelet Count 61 L Mean Platelet Volume Neutrophils % 86.7 H Lymphocytes % 3.6 L Monocytes % 2.4 Eosinophils % 5.3 Basophils % 0.4 Nucleated Red Blood Cells % 17.4 H Neutrophils # 6.9 Lymphocytes # 0.3 L Monocytes # 0.2 L Eosinophils # 0.4 Basophils # 0.0 Nucleated Red Blood Cells # 1.4 H Sodium Level 142 Potassium Level 3.8 Chloride Level 106 Carbon Dioxide Level 23 Anion Gap 17 #H Blood Urea Nitrogen 45 H Creatinine 0.94 Glucose Level 220 Calcium Level 11.1 H Phosphorus Level 4.1 Magnesium Level 1.9 Bedside Glucose 273 H Lactic Acid Level 5.7 *H Medications Medications Current Medications Acetaminophen (Tylenol Tab) 650 mg Q6H PRN PO PAIN LEVEL 1-3 OR FEVER; Start at 18:30 Morphine Sulfate (morphine) 2 mg Q4H PRN IV SEVERE PAIN LEVEL 7-10 Last administered on 09/27/16t 13:16; Admin Dose 2 MG; Start 09/05/16 at 18:30 Docusate Sodium (Colace) 100 mg Q12H PRN PO CONSTIPATION; Start 09/05/16 at 18: 30 Magnesium Hydroxide (Milk Of Mag) 30 ml DAILY PRN PO CONSTIPATION; Start at 18:30 Sodium Biphosphate/ Sodium Phosphate (Fleet Enema) 133 ml DAILY PRN [place] CONSTIPATION; Start 09/05/16 at 18:30 Hydralazine HCl (Apresoline) 10 mg Q6H PRN IV ELEVATED BLOOD PRESSURE; Start at 18:30 Nitroglycerin (Nitroglycerin (Sl Tab) 0.4 Mg) 1 tab Q5M PRN SL ANGINA; Start at 18:30 Miscellaneous Information 1 ea NOTE XX ; Start 09/05/16 at 19:00 Glucose (Glutose) 15 gm Q15M PRN PO DECREASED GLUCOSE; Start 09/05/16 at 19:00 Glucose (Glutose) 22.5 gm Q15M PRN PO DECREASED GLUCOSE; Start 09/05/16 at 19: 00 Dextrose (D50w Syringe) 25 ml Q15M PRN IV DECREASED GLUCOSE; Start 09/05/16 at 19:00 Dextrose (D50w Syringe) 50 ml Q15M PRN IV DECREASED GLUCOSE; Start 09/05/16 at 19:00 Glucagon (Glucagen) 1 mg Q15M PRN IM DECREASED GLUCOSE; Start 09/05/16 at 19:00 Glucose 15 gm 15 gm Q15M PRN BUCCAL DECREASED GLUCOSE; Start 09/05/16 at 19:00 Ondansetron HCl/ Sodium Chloride (Zofran Inj/NS) 54 ml @ 216 mls/hr Q6H PRN IV NAUSEA AND/OR VOMITING Last administered on 09/07/16 17:27; Admin Dose 216 MLS/HR; Start 09/06/16 at 10:30 Pantoprazole 40 mg 40 mg BID@06,18 IV Last administered on 09/27/16 05:44; Admin Dose 40 MG; Start 09/08/16 at 18:00 Fat Emulsion Intravenous (Liposyn Ii 20%) 500 ml @ 20.833 mls/ hr Q24H IV Last administered on 09/26/16 19:47; Admin Dose 20.833 MLS/HR; Start 09/11/16 at 16:00 Hydrocortisone (Solu-Cortef) 50 mg Q8 IV Last administered on 09/27/16 05:44; Admin Dose 50 MG; Start 09/13/16 at 14:00 Lorazepam (Ativan) 1 mg Q4 PRN IV ANXIETY Last administered on 09/20/16 05:56 ; Admin Dose 1 MG; Start 09/14/16 at 06:30 Insulin Aspart (Novolog Insulin Pen) NOVOLOG *MILD* ALGORI... Q6 SC Last administered on 09/27/16 11:18; Admin Dose 4 UNIT; Start 09/16/16 at 00:00 Collagenase 1 applic 1 applic DAILY TOP Last administered on 09/27/16 13:20; Admin Dose 1 APPLIC; Start 09/17/16 at 09:00 Total Parenteral Nutrition (Tpn) 1,000 ml @ 40 mls/hr Q24H IV Last administered on 09/25/16 17:21; Admin Dose 40 MLS/HR; Start 09/19/16 at 16:00 Furosemide (Lasix) 20 mg DAILY IV Last administered on 09/25/16 08:30; Admin Dose 20 MG; Start 09/23/16 at 09:00 Enalaprilat 0.625 mg 0.625 mg Q8 IV Last administered on 09/25/16 13:32; Admin Dose 0.625 MG; Start 09/24/16 at 08:09 Dextrose 1,000 ml @ 50 mls/hr Q20H IV Last administered on 09/27/16 07:55; Admin Dose 50 MLS/HR; Start 09/26/16 at 09:00 Meropenem 100 ml @ 200 mls/hr Q8 IVPB Last administered on 09/27/16 05:44; Admin Dose 200 MLS/HR; Start 09/26/16 at 14:00 Fluconazole/ Sodium Chloride 50 ml @ 50 mls/hr Q24H IVPB Last administered on 12:30; Admin Dose 50 MLS/HR; Start 09/26/16 at 12:00 Phenylephrine HCl 80 mg/Dextrose 500 ml @ 0 mls/hr TITRATE IV Last administered on 09/27/16 07:47; Admin Dose 56.25 MLS/HR; Start 09/26/16 at 14: 30 Norepinephrine 32 mg/Dextrose 500 ml @ 0 mls/hr TITRATE IV Last administered on 09/27/16 07:49; Admin Dose 18.75 MLS/HR; Start 09/26/16 at 14:30 Vasopressin 60 unit/Dextrose 60 ml @ 1.2 mls/hr Q12H IV Last administered on 07:51; Admin Dose 1.2 MLS/HR; Start 09/26/16 at 14:30 Vancomycin HCl (Vancocin) 100 ml @ 100 mls/hr Q24H IVPB Last administered on 11:11; Admin Dose 100 MLS/HR; Start 09/27/16 at 12:00 Heparin Sodium (Porcine) (Heparin (5000 Units/0.5 ml)) 5,000 unit BID SC Last administered on 09/27/16 09:06; Admin Dose 5,000 UNIT; Start 09/27/16 at 09:00 Enoxaparin Sodium (Lovenox) 100 mg Q12 SC Last administered on 09/27/16 09:08 ; Admin Dose 100 MG; Start 09/27/16 at 09:00 Miscellaneous Information (*Rx Drug Level Order Reminder*) VANCOMYCIN TROUGH AT 1100 ONCE ONCE XX ; Start 09/28/16 at 11:00; Stop 09/28/16 at 11:01 CORRIE FERNANDEZ NP Sep 27, 2016 14:34
[2016-09-27] MEDS: TPN 1,000 ML IV SCH (16:00)
[2016-09-27] MEDS ORDERED: PHENYLephrine 20MG IN 250 ML 250 ML ONE (16:56)
[2016-09-28] VITALS (92 sets, daily range): BP systolic 72–125; BP diastolic 29–85; PULSE 108–136; RESP 26–40
[2016-09-28] MEDS: DEXTROSE 5% 1,000 ML IV SCH (01:00)
[2016-09-28] MEDS: ALBUTEROL/IPRATROPIUM (NEB) 3 ML AMP HHN SCH ×4 (01:23→19:26)
[2016-09-28] MEDS: INSULIN ASPART [NOVOLOG] 3 ML PEN SC SCH ×4 (01:40→18:04)
[2016-09-28] MEDS: HYDROCORTISONE 100 MG INJ IV SCH ×3 (05:14→21:29)
[2016-09-28] MEDS: ENALAPRILAT 1.25 MG INJ IV SCH ×3 (05:14→21:30)
[2016-09-28] MEDS: PANTOPRAZOLE 40 MG INJ IV SCH ×2 (05:14→18:01)
[2016-09-28] MEDS: MEROPENEM 500 MG/100 ML (PMX) 100 ML IVPB SCH ×3 (05:14→21:29)
[2016-09-28] MEDS ORDERED: NORepinephrine 8MG/250 ML (PMX 250 ML ONE (05:27)
[2016-09-28] MEDS ORDERED: PHENYLephrine 20MG IN 250 ML 250 ML ONE (05:31)
[2016-09-28] MEDS: PHENYLephrine 80 MG in DEXTROSE 5% 492 ML IV SCH ×4 (05:50→20:01)
[2016-09-28 06:21] LABS: CREATININE 1.07 mg/dl (0.44-1.00)
[2016-09-28] MEDS: TPN 1,000 ML IV SCH (06:25)
[2016-09-28] MEDS: VASOPRESSIN 60 UNIT in DEXTROSE 5% 57 ML IV SCH ×3 (07:59→20:02)
--- NOTE | 2016-09-28 08:39 | PN ---
Date/Time of Note Date/Time of Note DATE: 09/28/16 TIME: 08:38 Assessment/Plan VTE Prophylaxis VTE Prophylaxis Intervention: SCD's Lines/Catheters IV Catheter Type (from Nrs): PICC Line Central line still needed: Yes Urinary Cath still in place: No Assessment/Plan Assessment/Plan 61 you F with stage 4 cervical cancer with mets to pelvis with resultant hydronephrosis warranting bl nephrostomy tube placement, mets to abdomen/pelvis causing obstruction of sigmoid colon, now with perforation initially admitted for septic shock. Also found to have LUE DVT, hypoxic respiratory failure. Pt with recurrence of shock 6., etiology unclear. Pt currently with severe shock and multiorgan failure. 1. Severe shock. Etiology unclear, suspect 2/2 GI source as blood cultures from 09/26 with GNRs. Unfortunately pt too unstable to undergo any diagnostics to assess etiology and even if cause were found, pt too unstable to undergoing intervention to rectify cont pressors; vanc/denise/fluc as per ID 2. Post colonoscopy perforated viscus large pelvic mass invading colon wall site of perforation, contrast leakage to pelvic area, Contained perforation as no evidence of generalized peritonitis Abx as per ID GI and gen surg following 3. History of metastatic cervical cancer. Status post radiation and chemo. Currently, getting palliative chemotherapy. Palliative care already following the patient. 4. Hypochromic anemia. Etiology unclear. Status post PRBC transfusion. repeating labs 5. Chronic ureteral obstruction , s/p Bilateral nephrostomy tubes. Continue monitoring. 6. Acute respiratory failure. Pulmonology has been consulted, continue vent management-->EXTUBATED 6.14. NO REINTUBATION PER DISCUSSION WITH FAMILY AND PATIENT 6.16 7. Cardiomyopathy with ejection fraction of 20%. Cardiology following 8. Severe LE edema and anasarca 2/2 mass effect 9. Stage III sacral decubitus, continue wound care, repositioning as protocol 10. PICC associated DVT: no ATC given thrombocytopenia Rationale for hydrocortisone unclear though given pt has been on this for >1 week and hypotension/shock, will continue at this time-->suspect for adrenal mets from underlying malignancy As per my note from yesterday evening, goals of care clarified yesterday evening given pt's critical status/decompensation. Pt and family refusing intubation Pt and family on board with DNR status. Prognosis grim. Of note, I spent >45 minutes with family this afternoon. Son with many questions about rationale behind individuals interventions (ie why fluids change from NS to D5). Despite multiple long discussions with family, they remain optimistic that patient will recover. I do not believe based on pt's multiple organ failure that this is realistic. Subjective 24 Hr Interval Summary Free Text/Dictation Pt remains critically ill. Less interactive. Sig third spacing noted to LEs. Family with many questions about the daily variations in pt's labs, rationale behind various interventions. Exam/Review of Systems Vital Signs Vitals Vital Signs Date Time Temp Pulse Resp B/P Pulse Ox O2 Delivery O2 Flow Rate FiO2 09/28/16 07:54 94 10.0 09/28/16 07:54 116 32 Simple Mask 09/28/16 06:00 87/65 09/28/16 04:00 98.2 09/27/16 06:01 53 Intake and Output 09/27/16 09/27/16 09/28/16 15:00 23:00 07:00 Intake Total 1649.34 ml 1347.57 ml 1034.2 ml Output Total 25 ml 75 ml 105 ml Balance 1624.34 ml 1272.57 ml 929.2 ml Exam laying in bed, wearing face mask no mrg lungs clear anteriorly grimaces to abd palpation +3rd spacing, fingers and toes cool to touch Results Result Diagram: 09/27/16 0530 09/28/16 0520 Results 24 hrs Laboratory Tests Test 09/27/16 09:35 09/28/16 01:35 09/28/16 05:20 09/28/16 05:24 Lactic Acid Level 5.7 *H Bedside Glucose 277 H 307 H Blood Urea Nitrogen 52 H Creatinine 1.07 H Medications Medications Current Medications Acetaminophen (Tylenol Tab) 650 mg Q6H PRN PO PAIN LEVEL 1-3 OR FEVER; Start at 18:30 Morphine Sulfate (morphine) 2 mg Q4H PRN IV SEVERE PAIN LEVEL 7-10 Last administered on 09/27/16t 13:16; Admin Dose 2 MG; Start 09/05/16 at 18:30 Docusate Sodium (Colace) 100 mg Q12H PRN PO CONSTIPATION; Start 09/05/16 at 18: 30 Magnesium Hydroxide (Milk Of Mag) 30 ml DAILY PRN PO CONSTIPATION; Start at 18:30 Sodium Biphosphate/ Sodium Phosphate (Fleet Enema) 133 ml DAILY PRN [place] CONSTIPATION; Start 09/05/16 at 18:30 Hydralazine HCl (Apresoline) 10 mg Q6H PRN IV ELEVATED BLOOD PRESSURE; Start at 18:30 Nitroglycerin (Nitroglycerin (Sl Tab) 0.4 Mg) 1 tab Q5M PRN SL ANGINA; Start at 18:30 Miscellaneous Information 1 ea NOTE XX ; Start 09/05/16 at 19:00 Glucose (Glutose) 15 gm Q15M PRN PO DECREASED GLUCOSE; Start 09/05/16 at 19:00 Glucose (Glutose) 22.5 gm Q15M PRN PO DECREASED GLUCOSE; Start 09/05/16 at 19: 00 Dextrose (D50w Syringe) 25 ml Q15M PRN IV DECREASED GLUCOSE; Start 09/05/16 at 19:00 Dextrose (D50w Syringe) 50 ml Q15M PRN IV DECREASED GLUCOSE; Start 09/05/16 at 19:00 Glucagon (Glucagen) 1 mg Q15M PRN IM DECREASED GLUCOSE; Start 09/05/16 at 19:00 Glucose 15 gm 15 gm Q15M PRN BUCCAL DECREASED GLUCOSE; Start 09/05/16 at 19:00 Ondansetron HCl/ Sodium Chloride (Zofran Inj/NS) 54 ml @ 216 mls/hr Q6H PRN IV NAUSEA AND/OR VOMITING Last administered on 09/07/16 17:27; Admin Dose 216 MLS/HR; Start 09/06/16 at 10:30 Pantoprazole 40 mg 40 mg BID@06,18 IV Last administered on 09/28/16 05:14; Admin Dose 40 MG; Start 09/08/16 at 18:00 Fat Emulsion Intravenous (Liposyn Ii 20%) 500 ml @ 20.833 mls/ hr Q24H IV Last administered on 09/26/16 19:47; Admin Dose 20.833 MLS/HR; Start 09/11/16 at 16:00 Hydrocortisone (Solu-Cortef) 50 mg Q8 IV Last administered on 09/28/16 05:14; Admin Dose 50 MG; Start 09/13/16 at 14:00 Lorazepam (Ativan) 1 mg Q4 PRN IV ANXIETY Last administered on 09/20/16 05:56 ; Admin Dose 1 MG; Start 09/14/16 at 06:30 Insulin Aspart (Novolog Insulin Pen) NOVOLOG *MILD* ALGORI... Q6 SC Last administered on 09/28/16 05:37; Admin Dose 5 UNIT; Start 09/16/16 at 00:00 Collagenase 1 applic 1 applic DAILY TOP Last administered on 09/27/16 13:20; Admin Dose 1 APPLIC; Start 09/17/16 at 09:00 Total Parenteral Nutrition (Tpn) 1,000 ml @ 40 mls/hr Q24H IV Last administered on 09/28/16 06:25; Admin Dose 40 MLS/HR; Start 09/19/16 at 16:00 Furosemide (Lasix) 20 mg DAILY IV Last administered on 09/25/16 08:30; Admin Dose 20 MG; Start 09/23/16 at 09:00 Enalaprilat 0.625 mg 0.625 mg Q8 IV Last administered on 09/25/16 13:32; Admin Dose 0.625 MG; Start 09/24/16 at 08:09 Dextrose 1,000 ml @ 50 mls/hr Q20H IV Last administered on 09/28/16 01:00; Admin Dose 50 MLS/HR; Start 09/26/16 at 09:00 Meropenem 100 ml @ 200 mls/hr Q8 IVPB Last administered on 09/28/16 05:14; Admin Dose 200 MLS/HR; Start 09/26/16 at 14:00 Fluconazole/ Sodium Chloride 50 ml @ 50 mls/hr Q24H IVPB Last administered on 12:30; Admin Dose 50 MLS/HR; Start 09/26/16 at 12:00 Phenylephrine HCl 80 mg/Dextrose 500 ml @ 0 mls/hr TITRATE IV Last administered on 09/28/16 05:50; Admin Dose 112.5 MLS/HR; Start 09/26/16 at 14: 30 Norepinephrine 32 mg/Dextrose 500 ml @ 0 mls/hr TITRATE IV Last administered on 09/27/16 07:49; Admin Dose 18.75 MLS/HR; Start 09/26/16 at 14:30 Vasopressin 60 unit/Dextrose 60 ml @ 1.2 mls/hr Q12H IV Last administered on 07:51; Admin Dose 1.2 MLS/HR; Start 09/26/16 at 14:30 Vancomycin HCl (Vancocin) 100 ml @ 100 mls/hr Q24H IVPB Last administered on 11:11; Admin Dose 100 MLS/HR; Start 09/27/16 at 12:00 Heparin Sodium (Porcine) (Heparin (5000 Units/0.5 ml)) 5,000 unit BID SC Last administered on 09/27/16 21:42; Admin Dose 5,000 UNIT; Start 09/27/16 at 09:00 Enoxaparin Sodium (Lovenox) 100 mg Q12 SC Last administered on 09/27/16 21:43 ; Admin Dose 100 MG; Start 09/27/16 at 09:00 Miscellaneous Information (*Rx Drug Level Order Reminder*) VANCOMYCIN TROUGH AT 1100 ONCE ONCE XX ; Start 09/28/16 at 11:00; Stop 09/28/16 at 11:01 HAILE CHAPARRO MD Sep 28, 2016 08:39
--- NOTE | 2016-09-28 08:44 | CONS ---
Date/Time of Note Date/Time of Note DATE: 09/28/16 TIME: 08:41 Consult Date/Type/Reason Admit Date/Time September 05, 2016 at 16:23 Initial Consult Date 09/06/16 Type of Consultation: neph Ordering Provider: MORIAH GARRIDO The patient was transferred to the intensive care unit to telemetry. Patient condition is critical. Still requiring pressor support. Patient exhibiting poor mental status. continues good uo. poc reviewed with dr. wilson. OBJECTIVE: HEENT: Head is normocephalic. NECK: Supple. HEART: Regular rate. LUNGS: Showed diminished breath sounds at the base. ABDOMEN: Soft, nontender to palpation. No rebound or guarding. EXTREMITIES: Negative for clubbing or cyanosis. Positive edema. DERMATOLOGIC: No rashes. MUSCULOSKELETAL: Have no joint effusion. NEUROLOGIC: No change in exam. MEDICATIONS: The patient's medication were reviewed. Objective Vital Signs Date Time Temp Pulse Resp B/P Pulse Ox O2 Delivery O2 Flow Rate FiO2 09/28/16 07:54 94 10.0 09/28/16 07:54 116 32 Simple Mask 09/28/16 06:00 87/65 09/28/16 04:00 98.2 09/27/16 06:01 53 Intake and Output 09/27/16 09/27/16 09/28/16 15:00 23:00 07:00 Intake Total 1649.34 ml 1347.57 ml 1034.2 ml Output Total 25 ml 75 ml 105 ml Balance 1624.34 ml 1272.57 ml 929.2 ml Results/Medications Result Diagram: 09/27/16 0530 09/28/16 0520 Results 24 hrs Laboratory Tests Test 09/27/16 09:35 09/28/16 01:35 09/28/16 05:20 09/28/16 05:24 Lactic Acid Level 5.7 *H Bedside Glucose 277 H 307 H Blood Urea Nitrogen 52 H Creatinine 1.07 H Medications Current Medications Acetaminophen (Tylenol Tab) 650 mg Q6H PRN PO PAIN LEVEL 1-3 OR FEVER; Start at 18:30 Morphine Sulfate (morphine) 2 mg Q4H PRN IV SEVERE PAIN LEVEL 7-10 Last administered on 09/27/16t 13:16; Admin Dose 2 MG; Start 09/05/16 at 18:30 Docusate Sodium (Colace) 100 mg Q12H PRN PO CONSTIPATION; Start 09/05/16 at 18: 30 Magnesium Hydroxide (Milk Of Mag) 30 ml DAILY PRN PO CONSTIPATION; Start at 18:30 Sodium Biphosphate/ Sodium Phosphate (Fleet Enema) 133 ml DAILY PRN [place] CONSTIPATION; Start 09/05/16 at 18:30 Hydralazine HCl (Apresoline) 10 mg Q6H PRN IV ELEVATED BLOOD PRESSURE; Start at 18:30 Nitroglycerin (Nitroglycerin (Sl Tab) 0.4 Mg) 1 tab Q5M PRN SL ANGINA; Start at 18:30 Miscellaneous Information 1 ea NOTE XX ; Start 09/05/16 at 19:00 Glucose (Glutose) 15 gm Q15M PRN PO DECREASED GLUCOSE; Start 09/05/16 at 19:00 Glucose (Glutose) 22.5 gm Q15M PRN PO DECREASED GLUCOSE; Start 09/05/16 at 19: 00 Dextrose (D50w Syringe) 25 ml Q15M PRN IV DECREASED GLUCOSE; Start 09/05/16 at 19:00 Dextrose (D50w Syringe) 50 ml Q15M PRN IV DECREASED GLUCOSE; Start 09/05/16 at 19:00 Glucagon (Glucagen) 1 mg Q15M PRN IM DECREASED GLUCOSE; Start 09/05/16 at 19:00 Glucose 15 gm 15 gm Q15M PRN BUCCAL DECREASED GLUCOSE; Start 09/05/16 at 19:00 Ondansetron HCl/ Sodium Chloride (Zofran Inj/NS) 54 ml @ 216 mls/hr Q6H PRN IV NAUSEA AND/OR VOMITING Last administered on 09/07/16 17:27; Admin Dose 216 MLS/HR; Start 09/06/16 at 10:30 Pantoprazole 40 mg 40 mg BID@06,18 IV Last administered on 09/28/16 05:14; Admin Dose 40 MG; Start 09/08/16 at 18:00 Fat Emulsion Intravenous (Liposyn Ii 20%) 500 ml @ 20.833 mls/ hr Q24H IV Last administered on 09/26/16 19:47; Admin Dose 20.833 MLS/HR; Start 09/11/16 at 16:00 Hydrocortisone (Solu-Cortef) 50 mg Q8 IV Last administered on 09/28/16 05:14; Admin Dose 50 MG; Start 09/13/16 at 14:00 Lorazepam (Ativan) 1 mg Q4 PRN IV ANXIETY Last administered on 09/20/16 05:56 ; Admin Dose 1 MG; Start 09/14/16 at 06:30 Insulin Aspart (Novolog Insulin Pen) NOVOLOG *MILD* ALGORI... Q6 SC Last administered on 09/28/16 05:37; Admin Dose 5 UNIT; Start 09/16/16 at 00:00 Collagenase 1 applic 1 applic DAILY TOP Last administered on 09/27/16 13:20; Admin Dose 1 APPLIC; Start 09/17/16 at 09:00 Total Parenteral Nutrition (Tpn) 1,000 ml @ 40 mls/hr Q24H IV Last administered on 09/28/16 06:25; Admin Dose 40 MLS/HR; Start 09/19/16 at 16:00 Furosemide (Lasix) 20 mg DAILY IV Last administered on 09/25/16 08:30; Admin Dose 20 MG; Start 09/23/16 at 09:00 Enalaprilat 0.625 mg 0.625 mg Q8 IV Last administered on 09/25/16 13:32; Admin Dose 0.625 MG; Start 09/24/16 at 08:09 Dextrose 1,000 ml @ 50 mls/hr Q20H IV Last administered on 09/28/16 01:00; Admin Dose 50 MLS/HR; Start 09/26/16 at 09:00 Meropenem 100 ml @ 200 mls/hr Q8 IVPB Last administered on 09/28/16 05:14; Admin Dose 200 MLS/HR; Start 09/26/16 at 14:00 Fluconazole/ Sodium Chloride 50 ml @ 50 mls/hr Q24H IVPB Last administered on 12:30; Admin Dose 50 MLS/HR; Start 09/26/16 at 12:00 Phenylephrine HCl 80 mg/Dextrose 500 ml @ 0 mls/hr TITRATE IV Last administered on 09/28/16 05:50; Admin Dose 112.5 MLS/HR; Start 09/26/16 at 14: 30 Norepinephrine 32 mg/Dextrose 500 ml @ 0 mls/hr TITRATE IV Last administered on 09/27/16 07:49; Admin Dose 18.75 MLS/HR; Start 09/26/16 at 14:30 Vasopressin 60 unit/Dextrose 60 ml @ 1.2 mls/hr Q12H IV Last administered on 07:51; Admin Dose 1.2 MLS/HR; Start 09/26/16 at 14:30 Vancomycin HCl (Vancocin) 100 ml @ 100 mls/hr Q24H IVPB Last administered on 11:11; Admin Dose 100 MLS/HR; Start 09/27/16 at 12:00 Heparin Sodium (Porcine) (Heparin (5000 Units/0.5 ml)) 5,000 unit BID SC Last administered on 09/27/16 21:42; Admin Dose 5,000 UNIT; Start 09/27/16 at 09:00 Enoxaparin Sodium (Lovenox) 100 mg Q12 SC Last administered on 09/27/16 21:43 ; Admin Dose 100 MG; Start 09/27/16 at 09:00 Miscellaneous Information (*Rx Drug Level Order Reminder*) VANCOMYCIN TROUGH AT 1100 ONCE ONCE XX ; Start 09/28/16 at 11:00; Stop 09/28/16 at 11:01 Assessment/Plan Chief Complaint/Hosp Course 1. Nonoliguric acute kidney injury. Etiology is secondary to acute tubular necrosis. Renal function has improved. The patient does have underlying azotemia. This may be multifactorial due to hypercatabolic state and diuretic therapy. At this point continue to monitor closely. 2. Bilateral hydronephrosis. Status post nephrostomy tubes. Continue to monitor. Urology has evaluated the patient. 3. Hypernatremia. Etiology is secondary to insensible losses. improved. patient on D5W at 50 mL an hour. Continue to adjust tpn per pharmacy. 4. Volume overload/congestive heart failure and mass effect. Continue low dose diuretic therapy. 5. Respiratory failure. Status post extubation. Clinically stable. Continue to monitor. 6. Dysphagia. The patient is currently on TPN. Continue to monitor. 7. Coronary artery disease. Continue the current treatment plan. 8. Anemia. Continue to monitor hemoglobin and hematocrit levels. 9. Mineral bone disorder. The patient is hypercalcemic. This may be due to immobilization or from metastatic disease. Continue to monitor. Consider bisphosphonate. 10. Metastatic cancer. The patient is status post radiation and chemotherapy, getting palliative chemotherapy at this time. Continue to monitor. 11. Perforated viscus secondary to colonoscopy. No plans for surgical intervention at this time. Will continue to observe. 12. Status post shock. Problems: ZANE HOLLINS MD Sep 28, 2016 08:44
[2016-09-28] MEDS: FUROSEMIDE 20 MG INJ IV SCH (09:33)
[2016-09-28] MEDS: HEPARIN 5,000 UNIT/0.5 ML VIAL SC SCH (09:34)
[2016-09-28] MEDS: ENOXAPARIN 100 MG/ML SYG SC SCH (09:34)
[2016-09-28] MEDS: COLLAGENASE 30 GM TUBE TOP SCH (09:36)
--- NOTE | 2016-09-28 11:06 | CONS ---
Date/Time of Note Date/Time of Note DATE: 09/28/16 TIME: 11:02 Assessment/Plan Assessment/Plan Additional Assessment/Plan Patient currently on Levophed at 10 mics per minute, vasopressin 0.04 U/min, phenylephrine drip at 300 mics per minute. TPN. Assessment recommendations; 1. Patient admitted with acute abdomen due to bowel perforation, patient deemed to high surgical risk for exploratory laparotomy going to widely metastatic cervical cancer. 2. History of bilateral nephrostomy tube placement in the past. 3. Status post respiratory failure. Patient now extubated and is a DNR status per family. 4. Thrombocytopenia. 5. Severe sepsis Continue current supportive care. Prognosis is dismal. Consultation Date/Type/Reason Admit Date/Time September 05, 2016 at 16:23 Initial Consult Date 09/06/16 Type of Consultation: Pulmonary/critical care Referring Provider: MORIAH GARRIDO 24 HR Interval Summary Free Text/Dictation Patient condition remains critical. Still requiring high-dose combination pressor support for blood pressure maintenance. Patient however is readily arousable. General exam; elderly woman, currently in no distress. Exam/Review of Systems Vital Signs Vitals Vital Signs Date Time Temp Pulse Resp B/P Pulse Ox O2 Delivery O2 Flow Rate FiO2 09/28/16 09:05 115 09/28/16 08:45 33 104/73 100 Mask 10.0 09/28/16 08:00 97.5 09/27/16 06:01 53 Intake and Output 09/27/16 09/27/16 09/28/16 15:00 23:00 07:00 Intake Total 1649.34 ml 1347.57 ml 1034.2 ml Output Total 25 ml 75 ml 105 ml Balance 1624.34 ml 1272.57 ml 929.2 ml Exam HEENT examination; supple neck, no JVD. No lymphadenopathy. Midline trachea. No thyromegaly. Patient has fair dentition. Pupils are small bilaterally. Chest examined; diminished but clear breath sound. S1-S2 audible, no murmurs. Regular rhythm. Abdomen examination; soft, protuberant. Bowel sounds are absent. Extremity exam; 3+ lower extremity pitting edema bilaterally. There is no edema involving upper extremities. Multiple ecchymoses are seen in extremities. [employer] exam is; patient is somnolent but arousable. Results Result Diagram: 09/27/16 0530 09/28/16 0520 Results 24 hrs Laboratory Tests Test 09/28/16 01:35 09/28/16 05:20 09/28/16 05:24 Bedside Glucose 277 H 307 H Blood Urea Nitrogen 52 H Creatinine 1.07 H Medications Medications Current Medications Acetaminophen (Tylenol Tab) 650 mg Q6H PRN PO PAIN LEVEL 1-3 OR FEVER; Start at 18:30 Morphine Sulfate (morphine) 2 mg Q4H PRN IV SEVERE PAIN LEVEL 7-10 Last administered on 09/27/16t 13:16; Admin Dose 2 MG; Start 09/05/16 at 18:30 Docusate Sodium (Colace) 100 mg Q12H PRN PO CONSTIPATION; Start 09/05/16 at 18: 30 Magnesium Hydroxide (Milk Of Mag) 30 ml DAILY PRN PO CONSTIPATION; Start at 18:30 Sodium Biphosphate/ Sodium Phosphate (Fleet Enema) 133 ml DAILY PRN [place] CONSTIPATION; Start 09/05/16 at 18:30 Hydralazine HCl (Apresoline) 10 mg Q6H PRN IV ELEVATED BLOOD PRESSURE; Start at 18:30 Nitroglycerin (Nitroglycerin (Sl Tab) 0.4 Mg) 1 tab Q5M PRN SL ANGINA; Start at 18:30 Miscellaneous Information 1 ea NOTE XX ; Start 09/05/16 at 19:00 Glucose (Glutose) 15 gm Q15M PRN PO DECREASED GLUCOSE; Start 09/05/16 at 19:00 Glucose (Glutose) 22.5 gm Q15M PRN PO DECREASED GLUCOSE; Start 09/05/16 at 19: 00 Dextrose (D50w Syringe) 25 ml Q15M PRN IV DECREASED GLUCOSE; Start 09/05/16 at 19:00 Dextrose (D50w Syringe) 50 ml Q15M PRN IV DECREASED GLUCOSE; Start 09/05/16 at 19:00 Glucagon (Glucagen) 1 mg Q15M PRN IM DECREASED GLUCOSE; Start 09/05/16 at 19:00 Glucose 15 gm 15 gm Q15M PRN BUCCAL DECREASED GLUCOSE; Start 09/05/16 at 19:00 Ondansetron HCl/ Sodium Chloride (Zofran Inj/NS) 54 ml @ 216 mls/hr Q6H PRN IV NAUSEA AND/OR VOMITING Last administered on 09/07/16 17:27; Admin Dose 216 MLS/HR; Start 09/06/16 at 10:30 Pantoprazole 40 mg 40 mg BID@06,18 IV Last administered on 09/28/16 05:14; Admin Dose 40 MG; Start 09/08/16 at 18:00 Fat Emulsion Intravenous (Liposyn Ii 20%) 500 ml @ 20.833 mls/ hr Q24H IV Last administered on 09/26/16 19:47; Admin Dose 20.833 MLS/HR; Start 09/11/16 at 16:00 Hydrocortisone (Solu-Cortef) 50 mg Q8 IV Last administered on 09/28/16 05:14; Admin Dose 50 MG; Start 09/13/16 at 14:00 Lorazepam (Ativan) 1 mg Q4 PRN IV ANXIETY Last administered on 09/20/16 05:56 ; Admin Dose 1 MG; Start 09/14/16 at 06:30 Insulin Aspart (Novolog Insulin Pen) NOVOLOG *MILD* ALGORI... Q6 SC Last administered on 09/28/16 05:37; Admin Dose 5 UNIT; Start 09/16/16 at 00:00 Collagenase 1 applic 1 applic DAILY TOP Last administered on 09/28/16 09:36; Admin Dose 1 APPLIC; Start 09/17/16 at 09:00 Total Parenteral Nutrition (Tpn) 1,000 ml @ 40 mls/hr Q24H IV Last administered on 09/28/16 06:25; Admin Dose 40 MLS/HR; Start 09/19/16 at 16:00 Furosemide (Lasix) 20 mg DAILY IV Last administered on 09/28/16 09:33; Admin Dose 20 MG; Start 09/23/16 at 09:00 Enalaprilat 0.625 mg 0.625 mg Q8 IV Last administered on 09/25/16 13:32; Admin Dose 0.625 MG; Start 09/24/16 at 08:09 Dextrose 1,000 ml @ 50 mls/hr Q20H IV Last administered on 09/28/16 01:00; Admin Dose 50 MLS/HR; Start 09/26/16 at 09:00 Meropenem 100 ml @ 200 mls/hr Q8 IVPB Last administered on 09/28/16 05:14; Admin Dose 200 MLS/HR; Start 09/26/16 at 14:00 Fluconazole/ Sodium Chloride 50 ml @ 50 mls/hr Q24H IVPB Last administered on 12:30; Admin Dose 50 MLS/HR; Start 09/26/16 at 12:00 Phenylephrine HCl 80 mg/Dextrose 500 ml @ 0 mls/hr TITRATE IV Last administered on 09/28/16 10:52; Admin Dose 0 MLS/HR; Start 09/26/16 at 14:30 Norepinephrine 32 mg/Dextrose 500 ml @ 0 mls/hr TITRATE IV Last administered on 09/27/16 07:49; Admin Dose 18.75 MLS/HR; Start 09/26/16 at 14:30 Vasopressin 60 unit/Dextrose 60 ml @ 1.2 mls/hr Q12H IV Last administered on 07:51; Admin Dose 1.2 MLS/HR; Start 09/26/16 at 14:30 Vancomycin HCl (Vancocin) 100 ml @ 100 mls/hr Q24H IVPB Last administered on 11:11; Admin Dose 100 MLS/HR; Start 09/27/16 at 12:00 SKYLER ESTEVES 18, 2017 11:06
--- NOTE | 2016-09-28 11:18 | PN ---
Date/Time of Note Date/Time of Note DATE: 09/28/16 TIME: 11:14 Assessment/Plan VTE Prophylaxis VTE Prophylaxis Intervention: SCD's Lines/Catheters IV Catheter Type (from Nrsg): PICC Line Central line still needed: Yes Urinary Cath still in place: No Assessment/Plan Assessment/Plan Assessment/Plan Hypotension/likely sepsis/gram-negative rods on blood cultures Anemia/no overt GI bleeding Rule out intra-abdominal bleeding versus hemolysis versus GI bleeding with slow transit Post colonoscopy perforated viscus * Large pelvic mass invading colon wall site of perforation * Contained perforation at site of tumor invasion as no evidence of further leakage or peritonitis Sepsis Metastatic cervical CA/Adrenal/brain History of cervical cancer S/P nephrostomy tube bilateral EF 20% Plan Continue supportive care, antibiotics Prognosis remains very poor Exam/Review of Systems Vital Signs Vitals Vital Signs Date Time Temp Pulse Resp B/P Pulse Ox O2 Delivery O2 Flow Rate FiO2 09/28/16 09:05 115 09/28/16 08:45 33 104/73 100 Mask 10.0 09/28/16 08:00 97.5 09/27/16 06:01 53 Intake and Output 09/27/16 09/27/16 09/28/16 15:00 23:00 07:00 Intake Total 1649.34 ml 1347.57 ml 1034.2 ml Output Total 25 ml 75 ml 105 ml Balance 1624.34 ml 1272.57 ml 929.2 ml Results Result Diagram: 09/27/16 0530 09/28/16 0520 Results 24 hrs Laboratory Tests Test 09/28/16 01:35 09/28/16 05:20 09/28/16 05:24 Bedside Glucose 277 H 307 H Blood Urea Nitrogen 52 H Creatinine 1.07 H Medications Medications Current Medications Acetaminophen (Tylenol Tab) 650 mg Q6H PRN PO PAIN LEVEL 1-3 OR FEVER; Start at 18:30 Morphine Sulfate (morphine) 2 mg Q4H PRN IV SEVERE PAIN LEVEL 7-10 Last administered on 09/27/16t 13:16; Admin Dose 2 MG; Start 09/05/16 at 18:30 Docusate Sodium (Colace) 100 mg Q12H PRN PO CONSTIPATION; Start 09/05/16 at 18: 30 Magnesium Hydroxide (Milk Of Mag) 30 ml DAILY PRN PO CONSTIPATION; Start at 18:30 Sodium Biphosphate/ Sodium Phosphate (Fleet Enema) 133 ml DAILY PRN [place] CONSTIPATION; Start 09/05/16 at 18:30 Hydralazine HCl (Apresoline) 10 mg Q6H PRN IV ELEVATED BLOOD PRESSURE; Start at 18:30 Nitroglycerin (Nitroglycerin (Sl Tab) 0.4 Mg) 1 tab Q5M PRN SL ANGINA; Start at 18:30 Miscellaneous Information 1 ea NOTE XX ; Start 09/05/16 at 19:00 Glucose (Glutose) 15 gm Q15M PRN PO DECREASED GLUCOSE; Start 09/05/16 at 19:00 Glucose (Glutose) 22.5 gm Q15M PRN PO DECREASED GLUCOSE; Start 09/05/16 at 19: 00 Dextrose (D50w Syringe) 25 ml Q15M PRN IV DECREASED GLUCOSE; Start 09/05/16 at 19:00 Dextrose (D50w Syringe) 50 ml Q15M PRN IV DECREASED GLUCOSE; Start 09/05/16 at 19:00 Glucagon (Glucagen) 1 mg Q15M PRN IM DECREASED GLUCOSE; Start 09/05/16 at 19:00 Glucose 15 gm 15 gm Q15M PRN BUCCAL DECREASED GLUCOSE; Start 09/05/16 at 19:00 Ondansetron HCl/ Sodium Chloride (Zofran Inj/NS) 54 ml @ 216 mls/hr Q6H PRN IV NAUSEA AND/OR VOMITING Last administered on 09/07/16 17:27; Admin Dose 216 MLS/HR; Start 09/06/16 at 10:30 Pantoprazole 40 mg 40 mg BID@06,18 IV Last administered on 09/28/16 05:14; Admin Dose 40 MG; Start 09/08/16 at 18:00 Fat Emulsion Intravenous (Liposyn Ii 20%) 500 ml @ 20.833 mls/ hr Q24H IV Last administered on 09/26/16 19:47; Admin Dose 20.833 MLS/HR; Start 09/11/16 at 16:00 Hydrocortisone (Solu-Cortef) 50 mg Q8 IV Last administered on 09/28/16 05:14; Admin Dose 50 MG; Start 09/13/16 at 14:00 Lorazepam (Ativan) 1 mg Q4 PRN IV ANXIETY Last administered on 09/20/16 05:56 ; Admin Dose 1 MG; Start 09/14/16 at 06:30 Insulin Aspart (Novolog Insulin Pen) NOVOLOG *MILD* ALGORI... Q6 SC Last administered on 09/28/16 05:37; Admin Dose 5 UNIT; Start 09/16/16 at 00:00 Collagenase 1 applic 1 applic DAILY TOP Last administered on 09/28/16 09:36; Admin Dose 1 APPLIC; Start 09/17/16 at 09:00 Total Parenteral Nutrition (Tpn) 1,000 ml @ 40 mls/hr Q24H IV Last administered on 09/28/16 06:25; Admin Dose 40 MLS/HR; Start 09/19/16 at 16:00 Furosemide (Lasix) 20 mg DAILY IV Last administered on 09/28/16 09:33; Admin Dose 20 MG; Start 09/23/16 at 09:00 Enalaprilat 0.625 mg 0.625 mg Q8 IV Last administered on 09/25/16 13:32; Admin Dose 0.625 MG; Start 09/24/16 at 08:09 Dextrose 1,000 ml @ 50 mls/hr Q20H IV Last administered on 09/28/16 01:00; Admin Dose 50 MLS/HR; Start 09/26/16 at 09:00 Meropenem 100 ml @ 200 mls/hr Q8 IVPB Last administered on 09/28/16 05:14; Admin Dose 200 MLS/HR; Start 09/26/16 at 14:00 Fluconazole/ Sodium Chloride 50 ml @ 50 mls/hr Q24H IVPB Last administered on 12:30; Admin Dose 50 MLS/HR; Start 09/26/16 at 12:00 Phenylephrine HCl 80 mg/Dextrose 500 ml @ 0 mls/hr TITRATE IV Last administered on 09/28/16 10:52; Admin Dose 0 MLS/HR; Start 09/26/16 at 14:30 Norepinephrine 32 mg/Dextrose 500 ml @ 0 mls/hr TITRATE IV Last administered on 09/27/16 07:49; Admin Dose 18.75 MLS/HR; Start 09/26/16 at 14:30 Vasopressin 60 unit/Dextrose 60 ml @ 1.2 mls/hr Q12H IV Last administered on 07:51; Admin Dose 1.2 MLS/HR; Start 09/26/16 at 14:30 Vancomycin HCl (Vancocin) 100 ml @ 100 mls/hr Q24H IVPB Last administered on 11:11; Admin Dose 100 MLS/HR; Start 09/27/16 at 12:00 SAKSHI MENA MD Sep 28, 2016 11:18
[2016-09-28] MEDS: VANCOMYCIN 500MG/NS (PMX) 100 ML IVPB SCH (12:06)
[2016-09-28] MEDS: FLUCONAZOLE 100 MG/NS (PMX) 50 ML IVPB SCH (12:06)
[2016-09-28] MEDS ORDERED: ALBUMIN HUMAN 25% 100 ML IV ONE (13:30)
[2016-09-28] MEDS: FAT EMULSION 20% 500 ML IV SCH (15:12)
--- NOTE | 2016-09-28 17:01 | CONS ---
Date/Time of Note Date/Time of Note DATE: 09/28/16 TIME: 17:00 Assessment/Plan Assessment/Plan Chief Complaint/Hosp Course SUBJECTIVE: Obtunded, on face mask, multiple pressors, nad Abx: Vanco, Merrem, Diflucan INDWELLINGS: NG tube, PICC line, placed 09/11/2016, right chest Port-A-Cath, B nephrostomies. PHYSICAL EXAMINATION: GENERAL: Chronically ill-appearing, elderly woman, in no distress. HEENT: Head atraumatic, normocephalic. NECK: Supple, trachea midline. CHEST: Chest rise is symmetrical. Breath sounds diminished to the bases. HEART: S1, S2. ABDOMEN: Soft, bowel tones present. Abdomen distended. Bowel tones hypoactive. EXTREMITIES: With bilateral edema. ASSESSMENT: 1. Severe sepsis with shock and GNR bacteremia 2. Large pelvic mass/ metastatic cervical cancer 3. Proximal sigmoid colon obstruction with perforation. 4. Urinary tract infection, per urinalysis. 5. Acute renal and respiratory failure. 6. LUE DVT with PICC present PLAN: Doing poorly, continue abx, no plans for oncologic and surgical interventions, prognosis poor, pt is DNR/DNI DW staff Problems: Consultation Date/Type/Reason Admit Date/Time September 05, 2016 at 16:23 Initial Consult Date 09/06/16 Type of Consultation: ID Referring Provider: MORIAH GARRIDO Exam/Review of Systems Vital Signs Vitals Vital Signs Date Time Temp Pulse Resp B/P Pulse Ox O2 Delivery O2 Flow Rate FiO2 09/28/16 16:23 110 09/28/16 16:15 26 107/71 100 09/28/16 16:00 97.5 09/28/16 15:30 Mask 10.0 09/27/16 06:01 53 Intake and Output 09/27/16 09/27/16 09/28/16 15:00 23:00 07:00 Intake Total 1649.34 ml 1347.57 ml 1034.2 ml Output Total 25 ml 75 ml 105 ml Balance 1624.34 ml 1272.57 ml 929.2 ml Results Result Diagram: 09/27/16 0530 09/28/16 0520 Results 24 hrs Laboratory Tests Test 09/28/16 01:35 09/28/16 05:20 09/28/16 05:24 09/28/16 11:50 Bedside Glucose 277 H 307 H Blood Urea Nitrogen 52 H Creatinine 1.07 H Vancomycin Level Trough 14.4 Test 09/28/16 12:08 09/28/16 13:55 Bedside Glucose 306 H Lactic Acid Level 6.0 *H Medications Medications Current Medications Acetaminophen (Tylenol Tab) 650 mg Q6H PRN PO PAIN LEVEL 1-3 OR FEVER; Start at 18:30 Morphine Sulfate (morphine) 2 mg Q4H PRN IV SEVERE PAIN LEVEL 7-10 Last administered on 09/27/16t 13:16; Admin Dose 2 MG; Start 09/05/16 at 18:30 Docusate Sodium (Colace) 100 mg Q12H PRN PO CONSTIPATION; Start 09/05/16 at 18: 30 Magnesium Hydroxide (Milk Of Mag) 30 ml DAILY PRN PO CONSTIPATION; Start at 18:30 Sodium Biphosphate/ Sodium Phosphate (Fleet Enema) 133 ml DAILY PRN [place] CONSTIPATION; Start 09/05/16 at 18:30 Hydralazine HCl (Apresoline) 10 mg Q6H PRN IV ELEVATED BLOOD PRESSURE; Start at 18:30 Nitroglycerin (Nitroglycerin (Sl Tab) 0.4 Mg) 1 tab Q5M PRN SL ANGINA; Start at 18:30 Miscellaneous Information 1 ea NOTE XX ; Start 09/05/16 at 19:00 Glucose (Glutose) 15 gm Q15M PRN PO DECREASED GLUCOSE; Start 09/05/16 at 19:00 Glucose (Glutose) 22.5 gm Q15M PRN PO DECREASED GLUCOSE; Start 09/05/16 at 19: 00 Dextrose (D50w Syringe) 25 ml Q15M PRN IV DECREASED GLUCOSE; Start 09/05/16 at 19:00 Dextrose (D50w Syringe) 50 ml Q15M PRN IV DECREASED GLUCOSE; Start 09/05/16 at 19:00 Glucagon (Glucagen) 1 mg Q15M PRN IM DECREASED GLUCOSE; Start 09/05/16 at 19:00 Glucose 15 gm 15 gm Q15M PRN BUCCAL DECREASED GLUCOSE; Start 09/05/16 at 19:00 Ondansetron HCl/ Sodium Chloride (Zofran Inj/NS) 54 ml @ 216 mls/hr Q6H PRN IV NAUSEA AND/OR VOMITING Last administered on 09/07/16 17:27; Admin Dose 216 MLS/HR; Start 09/06/16 at 10:30 Pantoprazole 40 mg 40 mg BID@06,18 IV Last administered on 09/28/16 05:14; Admin Dose 40 MG; Start 09/08/16 at 18:00 Fat Emulsion Intravenous (Liposyn Ii 20%) 500 ml @ 20.833 mls/ hr Q24H IV Last administered on 09/28/16 15:12; Admin Dose 20.833 MLS/HR; Start 09/11/16 at 16:00 Hydrocortisone (Solu-Cortef) 50 mg Q8 IV Last administered on 09/28/16 14:02; Admin Dose 50 MG; Start 09/13/16 at 14:00 Lorazepam (Ativan) 1 mg Q4 PRN IV ANXIETY Last administered on 09/20/16 05:56 ; Admin Dose 1 MG; Start 09/14/16 at 06:30 Insulin Aspart (Novolog Insulin Pen) NOVOLOG *MILD* ALGORI... Q6 SC Last administered on 09/28/16 12:09; Admin Dose 5 UNIT; Start 09/16/16 at 00:00 Collagenase 1 applic 1 applic DAILY TOP Last administered on 09/28/16 09:36; Admin Dose 1 APPLIC; Start 09/17/16 at 09:00 Total Parenteral Nutrition (Tpn) 1,000 ml @ 40 mls/hr Q24H IV Last administered on 09/28/16 06:25; Admin Dose 40 MLS/HR; Start 09/19/16 at 16:00 Furosemide (Lasix) 20 mg DAILY IV Last administered on 09/28/16 09:33; Admin Dose 20 MG; Start 09/23/16 at 09:00 Enalaprilat 0.625 mg 0.625 mg Q8 IV Last administered on 09/25/16 13:32; Admin Dose 0.625 MG; Start 09/24/16 at 08:09 Dextrose 1,000 ml @ 50 mls/hr Q20H IV Last administered on 09/28/16 01:00; Admin Dose 50 MLS/HR; Start 09/26/16 at 09:00 Meropenem 100 ml @ 200 mls/hr Q8 IVPB Last administered on 09/28/16 14:02; Admin Dose 200 MLS/HR; Start 09/26/16 at 14:00 Fluconazole/ Sodium Chloride 50 ml @ 50 mls/hr Q24H IVPB Last administered on 12:06; Admin Dose 50 MLS/HR; Start 09/26/16 at 12:00 Phenylephrine HCl 80 mg/Dextrose 500 ml @ 0 mls/hr TITRATE IV Last administered on 09/28/16 15:24; Admin Dose 112.5 MLS/HR; Start 09/26/16 at 14: 30 Norepinephrine 32 mg/Dextrose 500 ml @ 0 mls/hr TITRATE IV Last administered on 09/27/16 07:49; Admin Dose 18.75 MLS/HR; Start 09/26/16 at 14:30 Vasopressin 60 unit/Dextrose 60 ml @ 1.2 mls/hr Q12H IV Last administered on 14:03; Admin Dose 2.4 MLS/HR; Start 09/26/16 at 14:30 Vancomycin HCl 100 ml @ 100 mls/hr Q24H IVPB Last administered on 09/28/16 12 :06; Admin Dose 100 MLS/HR; Start 09/27/16 at 12:00; Stop 09/28/16 at 20:00 Vancomycin HCl/ Sodium Chloride (Vancocin/NS) 150 ml @ 75 mls/hr Q36H IVPB ; Start 09/29/16 at 18:00 BIN MITTAL NP Sep 28, 2016 17:01
[2016-09-29] VITALS (96 sets, daily range): BP systolic 84–202; BP diastolic 44–149; PULSE 92–125; RESP 23–36
[2016-09-29] MEDS: INSULIN ASPART [NOVOLOG] 3 ML PEN SC SCH ×4 (00:29→17:57)
[2016-09-29 00:34] LABS: AADO2 Arterial 236.6 mmHg (7.0-24.0); Allen Test ACCEPTAB; Arterial Base Excess -5.3 mmol/L (-3.0-3); Arterial COHb 0.3 % (0.0-3.0); Arterial Fraction of Oxyhgb 98.4 % (93.0-99.0); Arterial HCO3 18.9 mmol/L (22.0-26.0); Arterial MetHb 0.1 % (0.0-1.5); Arterial Total Hemglobin 9.4 g/dl (12.0-18.0); MODE MASK - SIMPLE
[2016-09-29] MEDS: PHENYLephrine 80 MG in DEXTROSE 5% 492 ML IV SCH (00:38)
[2016-09-29] MEDS: ALBUTEROL/IPRATROPIUM (NEB) 3 ML AMP HHN SCH ×4 (02:11→20:12)
[2016-09-29 02:18] LABS: AADO2 Arterial 187.2 mmHg (7.0-24.0); Allen Test ACCEPTAB; Arterial Base Excess -4.6 mmol/L (-3.0-3); Arterial COHb 0.3 % (0.0-3.0); Arterial Fraction of Oxyhgb 97.8 % (93.0-99.0); Arterial HCO3 20.6 mmol/L (22.0-26.0); Arterial MetHb 0.6 % (0.0-1.5); Arterial Total Hemglobin 8.2 g/dl (12.0-18.0); MODE MASK - SIMPLE
[2016-09-29] MEDS: PHENYLephrine 160 MG in DEXTROSE 5% 484 ML IV SCH ×3 (04:05→19:22)
[2016-09-29] MEDS: ENALAPRILAT 1.25 MG INJ IV SCH ×3 (05:38→21:49)
[2016-09-29] MEDS: HYDROCORTISONE 100 MG INJ IV SCH ×3 (05:38→21:51)
[2016-09-29] MEDS: PANTOPRAZOLE 40 MG INJ IV SCH ×2 (05:38→17:54)
[2016-09-29] MEDS: MEROPENEM 500 MG/100 ML (PMX) 100 ML IVPB SCH ×3 (05:39→21:51)
[2016-09-29] MEDS: COLLAGENASE 30 GM TUBE TOP SCH (08:12)
[2016-09-29] MEDS: ALBUMIN HUMAN 25% 50 ML IV SCH ×2 (08:12→15:05)
[2016-09-29 08:16] LABS: CALCIUM 9.7 mg/dl (8.4-10.2); CREATININE 0.96 mg/dl (0.44-1.00); MAGNESIUM 1.7 mg/dl (1.7-2.5); PHOSPHORUS 4.8 mg/dl (2.5-4.9); POTASSIUM 5.2 mmol/L (3.5-5.1)
--- NOTE | 2016-09-29 09:22 | PN ---
DATE: 09/26/2016 CARDIOLOGY FOLLOWUP NOTE SUBJECTIVE: Discussed with the staff. Rhythm strip was reviewed and discussed with the patient's s on, discussed with the daughter extensively. We noted the patient was doing better yesterday, extub ated and transferred out of ICU. However, last night she had to be brought back. ____ hypotensive . Gradually she has become more and more hypotensive requiring more and more pressors. Currently o n maximum Levophed as well as Julio-Synephrine. Current rhythm is sinus tachycardia. ____. She is moaning. She does not follow my commands, appears to be awake, but she is just moanin g. According to the son, she has right shoulder pain, but it is difficult to get a history from her . MEDICATIONS: Reviewed as per medication reconciliation, was personally reviewed. PHYSICAL EXAMINATION: VITAL SIGNS: Temperature 99, heart rate of 127, blood pressure is been running around 50s to 60s, a s high as 80s now over 40s, respiratory rate of ____. HEENT: Normocephalic, atraumatic. Status post NG tube in place. Eyes are closed. CARDIOVASCULAR: Tachycardic. PULMONARY: With mild rhonchi, diffuse. GASTROINTESTINAL: Soft. No rebound, but mild tenderness. EXTREMITIES: Diffuse lower extremity edema. NEUROLOGIC: Moans, does not answer my questions. Does not open her eyes, but appears to be awake. LABORATORY: Sodium 151, potassium 3.7, BUN of 42, creatinine 0.77, glucose of 103. ____. ____Albu min is 2.9. WBC of 14.2, hemoglobin 10.2, platelets of 96. Chest x-ray from today shows hyperinfla yaquelin lung with elevation of left hemidiaphragm and ____patchy infiltrate bilateral lower lobes. ____ lungs. ASSESSMENT AND PLAN: 1. Severe sepsis and shock. 2. Status post perforated bowel. 3. Severe cardiomyopathy. 4. Respiratory failure. 5. Fluid overload and congestive heart failure secondary to above. 6. Mildly abnormal troponin secondary to above in sinus tachycardia ____. 7. History of encephalopathy. 8. History of metastatic cervical cancer. 9. Anemia. 10. Malnutrition, on total parenteral nutrition. RECOMMENDATIONS: We will continue with Levophed and Julio-Synephrine drip. They has been double conc entrated. Digoxin level was at therapeutic level of 0.8. I will give one extra dose of digoxin onl y now and monitor. Multiple antibiotics are being continued and managed as per internal medicine an d ID's recommendations. Supportive care. ICU care will be continued. ____ will be continued on do uble concentrated. Nutritional support will be continued. Prognosis appears to be very poor. Cont inue with the ICU care. CODE STATUS: FULL CODE. Discussed with the family. More than 38 minutes of critical care time was spent managing this patient, excluding any procedures . Dictated By: JIM ABDI MD AV/NTS Conf#: [id number] DID#: [id number] CC: URIEL TERRAZAS DO; SKYLER ESTEVES MD; HAILE CHAPARRO MD;*EndCC*
[2016-09-29] MEDS ORDERED: SODIUM CHLORIDE 1 GM TAB NGT ONE (10:00)
--- NOTE | 2016-09-29 11:47 | PN ---
DATE: 09/29/2016 SUBJECTIVE: The patient is critically ill, currently in the intensive care unit. The patient is cu rrently DNR/DNI, on 100% nonrebreather. No other acute events noted. OBJECTIVE: VITAL SIGNS: Blood pressure is 106/66, respirations 25, pulse 96, temperature 97.6. I'S AND O'S: The patient had 4 L in, 800 mL out. HEENT: Head is normocephalic. NECK: Supple. HEART: Regular rate. LUNGS: Show diminished breath sounds at the base. ABDOMEN: Soft, nontender to palpation. EXTREMITIES: Positive for edema, diffuse anasarca. DERMATOLOGIC: No rashes. MUSCULOSKELETAL: No joint effusions. NEUROLOGIC: No change in exam. MEDICATIONS: The patient's medications have been reviewed. LABORATORY DATA: Shows sodium 126, potassium 5.2, chloride 100, bicarbonate 17, BUN 59, creatinine 0.96, glucose 249. ASSESSMENT AND PLAN: 1. Nonoliguric acute kidney injury, etiology secondary to acute tubular necrosis. Renal function h as initially improved; however, renal function has declined in the last 24 hours. At this point, wi ll continue current treatment plan. Continue supportive care, renally dose all medications, avoid n ephrotoxins. 2. Hyperkalemia, etiology is likely due to hypoglycemia and acute kidney injury. We will repeat a potassium level and monitor. 3. Hyponatremia, etiology is multifactorial secondary to hypoglycemia in conjunction with hypertoni c fluids. Plan is to discontinue D5W. Will discontinue free water flushes. Will have pharmacy adj ust TPN and repeat sodium levels. 4. Bilateral hydronephrosis, status post nephrostomy tubes. Continue to monitor. 5. Volume overload, congestive heart failure with mass effect. The patient is currently in shock o n pressor support. Will discontinue diuretic therapy and monitor. 6. Septic shock. The patient is on multiple pressors. Continue current treatment plan. Continue antibiotic therapy. We will give the patient IV albumin for volume expansion and monitor closely. 7. Respiratory failure. The patient is currently on facemask. Will continue. 8. Dysphagia. The patient is on TPN. 9. Coronary artery disease. Continue current medical management. 10. Anemia. Continue to monitor hemoglobin and hematocrit levels. 11. Mineral bone disorder. Continue to monitor calcium and phosphorus levels. 12. Metastatic cancer. The patient is status post radiation chemotherapy, continue to monitor. 13. Perforated viscus secondary to colonoscopy. No plan for intervention at this time. Please note the patient is critically ill, poor prognosis. Please note I spent over 35 minutes of critical care time with this patient. Dictated By: URIEL RAMESH/EHSAN Conf#: [id number] DID#: [id number]
--- NOTE | 2016-09-29 12:05 | CONS ---
Date/Time of Note Date/Time of Note DATE: 09/29/16 TIME: 12:02 Assessment/Plan Assessment/Plan Additional Assessment/Plan Medications patient currently on Levophed at 5 mics per minute. Phenylephrine drip 300 mics per minute. Vasopressin 0.04 U/min. Assessment recommendations; 1. Patient admitted for acute abdomen due to bowel perforation patient however deemed too high risk of surgical candidate for laparotomy. 2. History of bilateral nephrostomies. 3. Severe ongoing sepsis. 4. Severe hypotension. 5. Thrombocytopenia. 6. Widely metastatic cervical cancer. Continue current supportive care. Prognosis is extremely poor. Consultation Date/Type/Reason Admit Date/Time September 05, 2016 at 16:23 Initial Consult Date 09/06/16 Type of Consultation: Pulmonary/critical care Referring Provider: MORIAH GARRIDO 24 HR Interval Summary Free Text/Dictation Patient condition remains critical. She is unresponsive. Requiring high-dose pressor support with combination Levophed phenylephrine and vasopressin drips. General exam; elderly woman, unresponsive. Currently on supplemental oxygen. Exam/Review of Systems Vital Signs Vitals Vital Signs Date Time Temp Pulse Resp B/P Pulse Ox O2 Delivery O2 Flow Rate FiO2 09/29/16 11:15 97 29 102/67 100 Mask 6.0 09/29/16 08:00 97.6 09/27/16 06:01 53 Intake and Output 09/28/16 09/28/16 09/29/16 15:00 23:00 07:00 Intake Total 1632.93 ml 1138.422 ml 1501.23 ml Output Total 0 ml 300 ml 650 ml Balance 1632.93 ml 838.422 ml 851.23 ml Exam HEENT exam; supple neck, no JVD. No lymphadenopathy. Midline trachea. No thyromegaly. Patient has fair dentition. Pupils are small bilaterally. Chest examination; diminished breath sounds bilaterally. S1-S2 audible, no murmurs. Tachycardic. Abdomen examination; distended. Bowel sounds absent. Extremity exam; 3+ pitting edema involving both lower extremities. No edema involving upper extremities. ELECTRONIC PUBLISHING SPECIALIST examination; patient remains unresponsive. Results Result Diagram: 09/27/16 0530 09/29/16 0630 Results 24 hrs Laboratory Tests Test 09/28/16 12:08 09/28/16 13:09 09/28/16 13:55 09/28/16 18:03 Bedside Glucose 306 H 305 H Blood Gas Specimen Source Blood arterial Arterial Blood Date Drawn 09/28/2016 3:12:00 PM Arterial Blood pH (Temp corrected) 7.386 Arterial Blood pCO2 (Temp correct) 32.3 L Arterial Blood pO2 (Temp corrected) 162.9 H Arterial Blood HCO3 18.9 L Arterial Blood Base Excess -5.3 L Arterial Blood Oxygen Saturation 98.8 H Que Test ACCEPTAB Arterial Blood Gas Puncture Site Right Radial Arterial Blood Carboxyhemoglobin 0.3 Arterial Blood Methemoglobin 0.1 Blood Gas A-a O2 Differential 236.6 H Oxyhemoglobin Percent 98.4 Total Hemoglobin 9.4 L Blood Gas Temperature 37.0 Blood Gas Modality MASK - SIMPLE FiO2 61.0 Blood Gas Notified Whom RT Blood Gas Notified Time 09/28/2016 3:28:00 PM Lactic Acid Level 6.0 *H Test 09/29/16 00:27 09/29/16 01:51 09/29/16 06:19 09/29/16 06:30 Bedside Glucose 337 H 314 H Blood Gas Specimen Source Blood arterial Arterial Blood Date Drawn 09/29/2016 2:06:00 AM Arterial Blood pH (Temp corrected) 7.348 L Arterial Blood pCO2 (Temp correct) 38.4 Arterial Blood pO2 (Temp corrected) 147.8 H Arterial Blood HCO3 20.6 L Arterial Blood Base Excess -4.6 L Arterial Blood Oxygen Saturation 98.7 H Que Test ACCEPTAB Arterial Blood Gas Puncture Site Right Radial Arterial Blood Carboxyhemoglobin 0.3 Arterial Blood Methemoglobin 0.6 Blood Gas A-a O2 Differential 187.2 H Oxyhemoglobin Percent 97.8 Total Hemoglobin 8.2 L Blood Gas Temperature 37.0 Blood Gas Actual Respiration Rate 24 Blood Gas Modality MASK - SIMPLE FiO2 53.0 Blood Gas Notified 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 Blood Gas Notified Time 09/29/2016 2:17:51 AM Sodium Level 126 L Potassium Level 5.2 H Chloride Level 100 Carbon Dioxide Level 17 L Anion Gap 14 Blood Urea Nitrogen 59 H Creatinine 0.96 Glucose Level 249 H Calcium Level 9.7 Phosphorus Level 4.8 Magnesium Level 1.7 Medications Medications Current Medications Acetaminophen (Tylenol Tab) 650 mg Q6H PRN PO PAIN LEVEL 1-3 OR FEVER; Start at 18:30 Morphine Sulfate (morphine) 2 mg Q4H PRN IV SEVERE PAIN LEVEL 7-10 Last administered on 09/27/16 13:16; Admin Dose 2 MG; Start 09/05/16 at 18:30 Docusate Sodium (Colace) 100 mg Q12H PRN PO CONSTIPATION; Start 09/05/16 at 18: 30 Magnesium Hydroxide (Milk Of Mag) 30 ml DAILY PRN PO CONSTIPATION; Start at 18:30 Sodium Biphosphate/ Sodium Phosphate (Fleet Enema) 133 ml DAILY PRN [place] CONSTIPATION; Start 09/05/16 at 18:30 Hydralazine HCl (Apresoline) 10 mg Q6H PRN IV ELEVATED BLOOD PRESSURE; Start at 18:30 Nitroglycerin (Nitroglycerin (Sl Tab) 0.4 Mg) 1 tab Q5M PRN SL ANGINA; Start at 18:30 Miscellaneous Information 1 ea NOTE XX ; Start 09/05/16 at 19:00 Glucose (Glutose) 15 gm Q15M PRN PO DECREASED GLUCOSE; Start 09/05/16 at 19:00 Glucose (Glutose) 22.5 gm Q15M PRN PO DECREASED GLUCOSE; Start 09/05/16 at 19: 00 Dextrose (D50w Syringe) 25 ml Q15M PRN IV DECREASED GLUCOSE; Start 09/05/16 at 19:00 Dextrose (D50w Syringe) 50 ml Q15M PRN IV DECREASED GLUCOSE; Start 09/05/16 at 19:00 Glucagon (Glucagen) 1 mg Q15M PRN IM DECREASED GLUCOSE; Start 09/05/16 at 19:00 Glucose 15 gm 15 gm Q15M PRN BUCCAL DECREASED GLUCOSE; Start 09/05/16 at 19:00 Ondansetron HCl/ Sodium Chloride (Zofran Inj/NS) 54 ml @ 216 mls/hr Q6H PRN IV NAUSEA AND/OR VOMITING Last administered on 09/07/16 17:27; Admin Dose 216 MLS/HR; Start 09/06/16 at 10:30 Pantoprazole 40 mg 40 mg BID@06,18 IV Last administered on 09/29/16 05:38; Admin Dose 40 MG; Start 09/08/16 at 18:00 Fat Emulsion Intravenous (Liposyn Ii 20%) 500 ml @ 20.833 mls/ hr Q24H IV Last administered on 09/28/16 15:12; Admin Dose 20.833 MLS/HR; Start 09/11/16 at 16:00 Hydrocortisone (Solu-Cortef) 50 mg Q8 IV Last administered on 09/29/16 05:38; Admin Dose 50 MG; Start 09/13/16 at 14:00 Lorazepam (Ativan) 1 mg Q4 PRN IV ANXIETY Last administered on 09/20/16 05:56 ; Admin Dose 1 MG; Start 09/14/16 at 06:30 Insulin Aspart (Novolog Insulin Pen) NOVOLOG *MILD* ALGORI... Q6 SC Last administered on 09/29/16 06:21; Admin Dose 5 UNIT; Start 09/16/16 at 00:00 Collagenase 1 applic 1 applic DAILY TOP Last administered on 09/29/16 08:12; Admin Dose 1 APPLIC; Start 09/17/16 at 09:00 Total Parenteral Nutrition (Tpn) 1,000 ml @ 40 mls/hr Q24H IV Last administered on 09/28/16 06:25; Admin Dose 40 MLS/HR; Start 09/19/16 at 16:00 Furosemide (Lasix) 20 mg DAILY IV Last administered on 09/28/16 09:33; Admin Dose 20 MG; Start 09/23/16 at 09:00; Status Future Hold Enalaprilat 0.625 mg 0.625 mg Q8 IV Last administered on 09/25/16 13:32; Admin Dose 0.625 MG; Start 09/24/16 at 08:09 Meropenem 100 ml @ 200 mls/hr Q8 IVPB Last administered on 09/29/16 05:39; Admin Dose 200 MLS/HR; Start 09/26/16 at 14:00 Fluconazole/ Sodium Chloride 50 ml @ 50 mls/hr Q24H IVPB Last administered on 12:06; Admin Dose 50 MLS/HR; Start 09/26/16 at 12:00 Phenylephrine HCl 80 mg/Dextrose 500 ml @ 0 mls/hr TITRATE IV Last administered on 09/29/16 00:38; Admin Dose 112.5 MLS/HR; Start 09/26/16 at 14: 30 Norepinephrine 32 mg/Dextrose 500 ml @ 0 mls/hr TITRATE IV Last administered on 09/27/16 07:49; Admin Dose 18.75 MLS/HR; Start 09/26/16 at 14:30 Vasopressin 60 unit/Dextrose 60 ml @ 1.2 mls/hr Q12H IV Last administered on 20:02; Admin Dose 2.4 MLS/HR; Start 09/26/16 at 14:30 Vancomycin HCl 750 mg/Sodium Chloride 150 ml @ 75 mls/hr Q36H IVPB ; Start at 18:00 Phenylephrine HCl 160 mg/Dextrose 500 ml @ 18.75 mls/ hr TITRATE IV Last administered on 09/29/16 04:05; Admin Dose 56.25 MLS/HR; Start 09/29/16 at 01: 30 Albumin Human (Albumin Human 25%) 50 ml @ 100 mls/hr Q8H IV Last administered on 09/29/16 08:12; Admin Dose 100 MLS/HR; Start 09/29/16 at 08:00; Stop at 08:29 SKYLER ESTEVES 19, 2017 12:05
[2016-09-29] MEDS: FLUCONAZOLE 100 MG/NS (PMX) 50 ML IVPB SCH (12:37)
--- NOTE | 2016-09-29 12:52 | CONS ---
Date/Time of Note Date/Time of Note DATE: 09/29/16 TIME: 12:51 Assessment/Plan Assessment/Plan Chief Complaint/Hosp Course SUBJECTIVE: N acute events, Obtunded, on face mask, multiple pressors, nad Abx: Vanco, Merrem, Diflucan INDWELLINGS: NG tube, PICC line, placed 09/11/2016, right chest Port-A-Cath, B nephrostomies. PHYSICAL EXAMINATION: GENERAL: Chronically ill-appearing, elderly woman, in no distress. HEENT: Head atraumatic, normocephalic. NECK: Supple, trachea midline. CHEST: Chest rise is symmetrical. Breath sounds diminished to the bases. HEART: S1, S2. ABDOMEN: Soft, bowel tones present. Abdomen distended. Bowel tones hypoactive. EXTREMITIES: With bilateral edema. ASSESSMENT: 1. Severe sepsis with shock and PSA bacteremia 2. Large pelvic mass/ metastatic cervical cancer 3. Proximal sigmoid colon obstruction with perforation. 4. Urinary tract infection, per urinalysis. 5. Acute renal and respiratory failure. 6. LUE DVT with PICC present PLAN: Remains hemodynamically unstable, continue abx, no plans for oncologic and surgical interventions, prognosis poor, pt is DNR/DNI DW staff Problems: Consultation Date/Type/Reason Admit Date/Time September 05, 2016 at 16:23 Initial Consult Date 09/06/16 Type of Consultation: ID Referring Provider: MORIAH GARRIDO Exam/Review of Systems Vital Signs Vitals Vital Signs Date Time Temp Pulse Resp B/P Pulse Ox O2 Delivery O2 Flow Rate FiO2 09/29/16 12:00 94 09/29/16 11:15 29 102/67 100 Mask 6.0 09/29/16 08:00 97.6 09/27/16 06:01 53 Intake and Output 09/28/16 09/28/16 09/29/16 15:00 23:00 07:00 Intake Total 1632.93 ml 1138.422 ml 1501.23 ml Output Total 0 ml 300 ml 650 ml Balance 1632.93 ml 838.422 ml 851.23 ml Results Result Diagram: 09/27/16 0530 09/29/16 0630 Results 24 hrs Laboratory Tests Test 09/28/16 13:09 09/28/16 13:55 09/28/16 18:03 09/29/16 00:27 Blood Gas Specimen Source Blood arterial Arterial Blood Date Drawn 09/28/2016 3:12:00 PM Arterial Blood pH (Temp corrected) 7.386 Arterial Blood pCO2 (Temp correct) 32.3 L Arterial Blood pO2 (Temp corrected) 162.9 H Arterial Blood HCO3 18.9 L Arterial Blood Base Excess -5.3 L Arterial Blood Oxygen Saturation 98.8 H Que Test ACCEPTAB Arterial Blood Gas Puncture Site Right Radial Arterial Blood Carboxyhemoglobin 0.3 Arterial Blood Methemoglobin 0.1 Blood Gas A-a O2 Differential 236.6 H Oxyhemoglobin Percent 98.4 Total Hemoglobin 9.4 L Blood Gas Temperature 37.0 Blood Gas Modality MASK - SIMPLE FiO2 61.0 Blood Gas Notified Whom RT Blood Gas Notified Time 09/28/2016 3:28:00 PM Lactic Acid Level 6.0 *H Bedside Glucose 305 H 337 H Test 09/29/16 01:51 09/29/16 06:19 09/29/16 06:30 Blood Gas Specimen Source Blood arterial Arterial Blood Date Drawn 09/29/2016 2:06:00 AM Arterial Blood pH (Temp corrected) 7.348 L Arterial Blood pCO2 (Temp correct) 38.4 Arterial Blood pO2 (Temp corrected) 147.8 H Arterial Blood HCO3 20.6 L Arterial Blood Base Excess -4.6 L Arterial Blood Oxygen Saturation 98.7 H Que Test ACCEPTAB Arterial Blood Gas Puncture Site Right Radial Arterial Blood Carboxyhemoglobin 0.3 Arterial Blood Methemoglobin 0.6 Blood Gas A-a O2 Differential 187.2 H Oxyhemoglobin Percent 97.8 Total Hemoglobin 8.2 L Blood Gas Temperature 37.0 Blood Gas Actual Respiration Rate 24 Blood Gas Modality MASK - SIMPLE FiO2 53.0 Blood Gas Notified 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 Blood Gas Notified Time 09/29/2016 2:17:51 AM Bedside Glucose 314 H Sodium Level 126 L Potassium Level 5.2 H Chloride Level 100 Carbon Dioxide Level 17 L Anion Gap 14 Blood Urea Nitrogen 59 H Creatinine 0.96 Glucose Level 249 H Calcium Level 9.7 Phosphorus Level 4.8 Magnesium Level 1.7 Medications Medications Current Medications Acetaminophen (Tylenol Tab) 650 mg Q6H PRN PO PAIN LEVEL 1-3 OR FEVER; Start at 18:30 Morphine Sulfate (morphine) 2 mg Q4H PRN IV SEVERE PAIN LEVEL 7-10 Last administered on 09/27/16 13:16; Admin Dose 2 MG; Start 09/05/16 at 18:30 Docusate Sodium (Colace) 100 mg Q12H PRN PO CONSTIPATION; Start 09/05/16 at 18: 30 Magnesium Hydroxide (Milk Of Mag) 30 ml DAILY PRN PO CONSTIPATION; Start at 18:30 Sodium Biphosphate/ Sodium Phosphate (Fleet Enema) 133 ml DAILY PRN [place] CONSTIPATION; Start 09/05/16 at 18:30 Hydralazine HCl (Apresoline) 10 mg Q6H PRN IV ELEVATED BLOOD PRESSURE; Start at 18:30 Nitroglycerin (Nitroglycerin (Sl Tab) 0.4 Mg) 1 tab Q5M PRN SL ANGINA; Start at 18:30 Miscellaneous Information 1 ea NOTE XX ; Start 09/05/16 at 19:00 Glucose (Glutose) 15 gm Q15M PRN PO DECREASED GLUCOSE; Start 09/05/16 at 19:00 Glucose (Glutose) 22.5 gm Q15M PRN PO DECREASED GLUCOSE; Start 09/05/16 at 19: 00 Dextrose (D50w Syringe) 25 ml Q15M PRN IV DECREASED GLUCOSE; Start 09/05/16 at 19:00 Dextrose (D50w Syringe) 50 ml Q15M PRN IV DECREASED GLUCOSE; Start 09/05/16 at 19:00 Glucagon (Glucagen) 1 mg Q15M PRN IM DECREASED GLUCOSE; Start 09/05/16 at 19:00 Glucose 15 gm 15 gm Q15M PRN BUCCAL DECREASED GLUCOSE; Start 09/05/16 at 19:00 Ondansetron HCl/ Sodium Chloride (Zofran Inj/NS) 54 ml @ 216 mls/hr Q6H PRN IV NAUSEA AND/OR VOMITING Last administered on 09/07/16 17:27; Admin Dose 216 MLS/HR; Start 09/06/16 at 10:30 Pantoprazole 40 mg 40 mg BID@06,18 IV Last administered on 09/29/16 05:38; Admin Dose 40 MG; Start 09/08/16 at 18:00 Fat Emulsion Intravenous (Liposyn Ii 20%) 500 ml @ 20.833 mls/ hr Q24H IV Last administered on 09/28/16 15:12; Admin Dose 20.833 MLS/HR; Start 09/11/16 at 16:00 Hydrocortisone (Solu-Cortef) 50 mg Q8 IV Last administered on 09/29/16 05:38; Admin Dose 50 MG; Start 09/13/16 at 14:00 Lorazepam (Ativan) 1 mg Q4 PRN IV ANXIETY Last administered on 09/20/16 05:56 ; Admin Dose 1 MG; Start 09/14/16 at 06:30 Insulin Aspart (Novolog Insulin Pen) NOVOLOG *MILD* ALGORI... Q6 SC Last administered on 09/29/16 12:43; Admin Dose 4 UNIT; Start 09/16/16 at 00:00 Collagenase 1 applic 1 applic DAILY TOP Last administered on 09/29/16 08:12; Admin Dose 1 APPLIC; Start 09/17/16 at 09:00 Total Parenteral Nutrition (Tpn) 1,000 ml @ 40 mls/hr Q24H IV Last administered on 09/28/16 06:25; Admin Dose 40 MLS/HR; Start 09/19/16 at 16:00 Furosemide (Lasix) 20 mg DAILY IV Last administered on 09/28/16 09:33; Admin Dose 20 MG; Start 09/23/16 at 09:00; Status Future Hold Enalaprilat 0.625 mg 0.625 mg Q8 IV Last administered on 09/25/16 13:32; Admin Dose 0.625 MG; Start 09/24/16 at 08:09 Meropenem 100 ml @ 200 mls/hr Q8 IVPB Last administered on 09/29/16 05:39; Admin Dose 200 MLS/HR; Start 09/26/16 at 14:00 Fluconazole/ Sodium Chloride 50 ml @ 50 mls/hr Q24H IVPB Last administered on 12:37; Admin Dose 50 MLS/HR; Start 09/26/16 at 12:00 Phenylephrine HCl 80 mg/Dextrose 500 ml @ 0 mls/hr TITRATE IV Last administered on 09/29/16 00:38; Admin Dose 112.5 MLS/HR; Start 09/26/16 at 14: 30 Norepinephrine 32 mg/Dextrose 500 ml @ 0 mls/hr TITRATE IV Last administered on 6/17/17at 07:49; Admin Dose 18.75 MLS/HR; Start 09/26/16 at 14:30 Vasopressin 60 unit/Dextrose 60 ml @ 1.2 mls/hr Q12H IV Last administered on 20:02; Admin Dose 2.4 MLS/HR; Start 09/26/16 at 14:30 Vancomycin HCl 750 mg/Sodium Chloride 150 ml @ 75 mls/hr Q36H IVPB ; Start at 18:00 Phenylephrine HCl 160 mg/Dextrose 500 ml @ 18.75 mls/ hr TITRATE IV Last administered on 09/29/16 12:21; Admin Dose 56.25 MLS/HR; Start 09/29/16 at 01: 30 Albumin Human (Albumin Human 25%) 50 ml @ 100 mls/hr Q8H IV Last administered on 09/29/16 08:12; Admin Dose 100 MLS/HR; Start 09/29/16 at 08:00; Stop at 08:29 BIN MITTAL NP Sep 29, 2016 12:52
--- NOTE | 2016-09-29 13:08 | EN ---
Date/Time of Note Date/Time of Note DATE: 09/29/16 TIME: 13:03 Event Note Medicine Medicine Event Note The patient's son wanted to have a discussion with me regarding the status of his mother. The patient's son had an extremely hostile and aggressive attitude and was questioning every step of the treatment that his mother has received so far. He also was accusing that the patient has not been seen by certain positions. And that they are just writing notes without assessing the patient in the room. I reassured the patient that certainly that is not the case and most likely while the patient patient was being seen by physicians none of the family members were in the room. Son however flatly refused to believe that. The patient also was evaluated by me in ICU shortly before the son's arrival and he openly questioned whether I had actually examined the patient. The patient also had questions about antibiotic use whether they were discontinued on the medical floor I assured the patient's son that most likely they were not however I would certainly have the pharmacist review the record and give an update to him, the patient actually wanted me to spend significant amount of time tracking down the antibiotic use which I flatly refused. The patient's son lost his temper and asked me to "get out." I told him to file a complaint against me if he wishes to which certainly he would do. The patient's son has been continuously hostile towards the hospital staff and has been extremely confrontational with pretty much all the physicians and nurses. The son has been addressed to in no multiple light and respectively but unfortunately he is taking advantage of us and pretty much thing that he owns the entire hospital staff. SKYLER ESTEVES Sep 29, 2016 13:08
[2016-09-29] MEDS: VASOPRESSIN 60 UNIT in DEXTROSE 5% 57 ML IV SCH ×2 (14:03→19:39)
--- NOTE | 2016-09-29 15:02 | PN ---
Date/Time of Note Date/Time of Note DATE: 09/29/16 TIME: 14:58 Assessment/Plan VTE Prophylaxis VTE Prophylaxis Intervention: contraindicated Lines/Catheters IV Catheter Type (from Nrs): PICC Line Central line still needed: Yes Urinary Cath still in place: No Assessment/Plan Assessment/Plan Hypotension/likely sepsis/gram-negative rods on blood cultures Anemia/no overt GI bleeding Rule out intra-abdominal bleeding versus hemolysis versus GI bleeding with slow transit Post colonoscopy perforated viscus * Large pelvic mass invading colon wall site of perforation * Contained perforation at site of tumor invasion as no evidence of further leakage or peritonitis Sepsis Metastatic cervical CA/Adrenal/brain History of cervical cancer S/P nephrostomy tube bilateral EF 20% Plan Continue supportive care, antibiotics Prognosis remains very poor Subjective 24 Hr Interval Summary Free Text/Dictation * Course reviewed with RN * Patient seen and examined * Patient still on pressors and 6 l simple face mask * shallow rapid breathing/lethargic Exam/Review of Systems Vital Signs Vitals Vital Signs Date Time Temp Pulse Resp B/P Pulse Ox O2 Delivery O2 Flow Rate FiO2 09/29/16 14:00 94 31 109/56 100 Mask 6.0 09/29/16 12:00 97.6 09/27/16 06:01 53 Intake and Output 09/28/16 09/28/16 09/29/16 15:00 23:00 07:00 Intake Total 1632.93 ml 1138.422 ml 1501.23 ml Output Total 0 ml 300 ml 650 ml Balance 1632.93 ml 838.422 ml 851.23 ml Exam Constitutional: frail Neck: non-tender, supple Respiratory: diminished breath sounds, labored breathing Cardiovascular: nl pulses, regular rate and rhythm Gastrointestinal: distended, firm, soft Musculoskeletal: muscle weakness, swelling Extremities: edema Neurological: lethargic Skin: rash or lesions Results Result Diagram: 09/27/16 0530 09/29/16 0630 Results 24 hrs Laboratory Tests Test 09/28/16 18:03 09/29/16 00:27 09/29/16 01:51 09/29/16 06:19 Bedside Glucose 305 H 337 H 314 H Blood Gas Specimen Source Blood arterial Arterial Blood Date Drawn 09/29/2016 2:06:00 AM Arterial Blood pH (Temp corrected) 7.348 L Arterial Blood pCO2 (Temp correct) 38.4 Arterial Blood pO2 (Temp corrected) 147.8 H Arterial Blood HCO3 20.6 L Arterial Blood Base Excess -4.6 L Arterial Blood Oxygen Saturation 98.7 H Que Test ACCEPTAB Arterial Blood Gas Puncture Site Right Radial Arterial Blood Carboxyhemoglobin 0.3 Arterial Blood Methemoglobin 0.6 Blood Gas A-a O2 Differential 187.2 H Oxyhemoglobin Percent 97.8 Total Hemoglobin 8.2 L Blood Gas Temperature 37.0 Blood Gas Actual Respiration Rate 24 Blood Gas Modality MASK - SIMPLE FiO2 53.0 Blood Gas Notified 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 Blood Gas Notified Time 09/29/2016 2:17:51 AM Test 09/29/16 06:30 09/29/16 12:41 Sodium Level 126 L Potassium Level 5.2 H Chloride Level 100 Carbon Dioxide Level 17 L Anion Gap 14 Blood Urea Nitrogen 59 H Creatinine 0.96 Glucose Level 249 H Calcium Level 9.7 Phosphorus Level 4.8 Magnesium Level 1.7 Bedside Glucose 258 H Medications Medications Current Medications Acetaminophen (Tylenol Tab) 650 mg Q6H PRN PO PAIN LEVEL 1-3 OR FEVER; Start at 18:30 Morphine Sulfate (morphine) 2 mg Q4H PRN IV SEVERE PAIN LEVEL 7-10 Last administered on 09/27/16t 13:16; Admin Dose 2 MG; Start 09/05/16 at 18:30 Docusate Sodium (Colace) 100 mg Q12H PRN PO CONSTIPATION; Start 09/05/16 at 18: 30 Magnesium Hydroxide (Milk Of Mag) 30 ml DAILY PRN PO CONSTIPATION; Start at 18:30 Sodium Biphosphate/ Sodium Phosphate (Fleet Enema) 133 ml DAILY PRN [place] CONSTIPATION; Start 09/05/16 at 18:30 Hydralazine HCl (Apresoline) 10 mg Q6H PRN IV ELEVATED BLOOD PRESSURE; Start at 18:30 Nitroglycerin (Nitroglycerin (Sl Tab) 0.4 Mg) 1 tab Q5M PRN SL ANGINA; Start at 18:30 Miscellaneous Information 1 ea NOTE XX ; Start 09/05/16 at 19:00 Glucose (Glutose) 15 gm Q15M PRN PO DECREASED GLUCOSE; Start 09/05/16 at 19:00 Glucose (Glutose) 22.5 gm Q15M PRN PO DECREASED GLUCOSE; Start 09/05/16 at 19: 00 Dextrose (D50w Syringe) 25 ml Q15M PRN IV DECREASED GLUCOSE; Start 09/05/16 at 19:00 Dextrose (D50w Syringe) 50 ml Q15M PRN IV DECREASED GLUCOSE; Start 09/05/16 at 19:00 Glucagon (Glucagen) 1 mg Q15M PRN IM DECREASED GLUCOSE; Start 09/05/16 at 19:00 Glucose 15 gm 15 gm Q15M PRN BUCCAL DECREASED GLUCOSE; Start 09/05/16 at 19:00 Ondansetron HCl/ Sodium Chloride (Zofran Inj/NS) 54 ml @ 216 mls/hr Q6H PRN IV NAUSEA AND/OR VOMITING Last administered on 09/07/16 17:27; Admin Dose 216 MLS/HR; Start 09/06/16 at 10:30 Pantoprazole 40 mg 40 mg BID@06,18 IV Last administered on 09/29/16 05:38; Admin Dose 40 MG; Start 09/08/16 at 18:00 Fat Emulsion Intravenous (Liposyn Ii 20%) 500 ml @ 20.833 mls/ hr Q24H IV Last administered on 09/28/16 15:12; Admin Dose 20.833 MLS/HR; Start 09/11/16 at 16:00 Hydrocortisone (Solu-Cortef) 50 mg Q8 IV Last administered on 09/29/16 14:30; Admin Dose 50 MG; Start 09/13/16 at 14:00 Lorazepam (Ativan) 1 mg Q4 PRN IV ANXIETY Last administered on 09/20/16 05:56 ; Admin Dose 1 MG; Start 09/14/16 at 06:30 Insulin Aspart (Novolog Insulin Pen) NOVOLOG *MILD* ALGORI... Q6 SC Last administered on 09/29/16 12:43; Admin Dose 4 UNIT; Start 09/16/16 at 00:00 Collagenase 1 applic 1 applic DAILY TOP Last administered on 09/29/16 08:12; Admin Dose 1 APPLIC; Start 09/17/16 at 09:00 Total Parenteral Nutrition (Tpn) 1,000 ml @ 40 mls/hr Q24H IV Last administered on 09/28/16 06:25; Admin Dose 40 MLS/HR; Start 09/19/16 at 16:00 Furosemide (Lasix) 20 mg DAILY IV Last administered on 09/28/16 09:33; Admin Dose 20 MG; Start 09/23/16 at 09:00; Status Future Hold Enalaprilat 0.625 mg 0.625 mg Q8 IV Last administered on 09/25/16 13:32; Admin Dose 0.625 MG; Start 09/24/16 at 08:09 Meropenem 100 ml @ 200 mls/hr Q8 IVPB Last administered on 09/29/16 14:30; Admin Dose 200 MLS/HR; Start 09/26/16 at 14:00 Fluconazole/ Sodium Chloride 50 ml @ 50 mls/hr Q24H IVPB Last administered on 12:37; Admin Dose 50 MLS/HR; Start 09/26/16 at 12:00 Phenylephrine HCl 80 mg/Dextrose 500 ml @ 0 mls/hr TITRATE IV Last administered on 09/29/16 00:38; Admin Dose 112.5 MLS/HR; Start 09/26/16 at 14: 30 Norepinephrine 32 mg/Dextrose 500 ml @ 0 mls/hr TITRATE IV Last administered on 09/27/16 07:49; Admin Dose 18.75 MLS/HR; Start 09/26/16 at 14:30 Vasopressin 60 unit/Dextrose 60 ml @ 1.2 mls/hr Q12H IV Last administered on 20:02; Admin Dose 2.4 MLS/HR; Start 09/26/16 at 14:30 Vancomycin HCl 750 mg/Sodium Chloride 150 ml @ 75 mls/hr Q36H IVPB ; Start at 18:00 Phenylephrine HCl 160 mg/Dextrose 500 ml @ 18.75 mls/ hr TITRATE IV Last administered on 09/29/16 12:21; Admin Dose 56.25 MLS/HR; Start 09/29/16 at 01: 30 Albumin Human (Albumin Human 25%) 50 ml @ 100 mls/hr Q8H IV Last administered on 09/29/16 08:12; Admin Dose 100 MLS/HR; Start 09/29/16 at 08:00; Stop at 08:29 [place] DE LEON NP Sep 29, 2016 15:02
[2016-09-29] MEDS: FAT EMULSION 20% 500 ML IV SCH (15:04)
[2016-09-29 15:38] LABS: CALCIUM 9.8 mg/dl (8.4-10.2); CREATININE 0.96 mg/dl (0.44-1.00); POTASSIUM 4.4 mmol/L (3.5-5.1)
[2016-09-29] MEDS: TPN 1,000 ML IV SCH (17:21)
[2016-09-29] MEDS ORDERED: VANCOMYCIN 750 MG in SOD CHLORIDE 0.9% 150 ML IVPB SCH (18:00)
--- NOTE | 2016-09-29 19:53 | PN ---
DATE: 09/29/2016 SUBJECTIVE: Discussed with the staff. Rhythm strip reviewed. The patient on multiple pressors. S he is still hypotensive but remains stable on multiple pressors. Still on oxygen, nonverbal, lethar gic. Code status is DNR now. MEDICATIONS: Reviewed. PHYSICAL EXAMINATION: VITAL SIGNS: Temperature 97.6, heart rate of 102, blood pressure 92/53, respiratory rate of 29. HEENT: Normocephalic, atraumatic, on oxygen and facemask. CARDIOPULMONARY: Mild rhonchi, mostly on the right side. GASTROINTESTINAL: Soft. No rebound, no guarding. EXTREMITIES: Diffuse lower extremity edema. NEUROLOGIC: Lethargic, does not answer my questions. LABORATORY: WBC of 8, hemoglobin 10.3, platelets of 61. Digoxin level on the 16th was 0.8. Sodium 124, potassium 4.4, BUN of 60, creatinine 0.96, glucose of 230. ASSESSMENT AND PLAN: 1. Hypoxemic ____ respiratory failure. 2. Severe sepsis and shock 3. Severe cardiomyopathy. 4. Metastatic cervical cancer, status post perforated bowel post colonoscopy ____. 5. Anemia, status post transfusion. 6. Encephalopathy secondary to above. 7. Malnutrition, on total parenteral nutrition. RECOMMENDATION: Continue on multiple pressors and adjust as needed. Code status DNR. The patient requested reportedly not to be intubated. Antibiotic is managed as per ID. Nutritional support angel l be continued. Continue with ICU care. Dictated By: JIM ABDI MD AV/EHSAN Conf#: [id number] DID#: [id number] CC: SKYLER ESTEVES MD; URIEL TERRAZAS DO;*EndCC*
--- NOTE | 2016-09-29 21:11 | PN ---
Date/Time of Note Date/Time of Note DATE: 09/29/16 TIME: 21:08 Assessment/Plan VTE Prophylaxis VTE Prophylaxis Intervention: SCD's Lines/Catheters IV Catheter Type (from Nrs): PICC Line Central line still needed: Yes Urinary Cath still in place: No Assessment/Plan Assessment/Plan 1. Severe shock. Etiology unclear, suspect 2/2 GI source as blood cultures from 09/26 with GNRs. Unfortunately pt too unstable to undergo any diagnostics to assess etiology and even if cause were found, pt too unstable to undergoing intervention to rectify cont pressors; vanc/denise/fluc as per ID 2. Post colonoscopy perforated viscus large pelvic mass invading colon wall site of perforation, contrast leakage to pelvic area, Contained perforation as no evidence of generalized peritonitis Abx as per ID GI and gen surg following 3. History of metastatic cervical cancer. Status post radiation and chemo. Currently, getting palliative chemotherapy. Palliative care already following the patient. 4. Hypochromic anemia. Etiology unclear. Status post PRBC transfusion. repeating labs 5. Chronic ureteral obstruction , s/p Bilateral nephrostomy tubes. Continue monitoring. 6. Acute respiratory failure. Pulmonology has been consulted, continue vent management-->EXTUBATED 6.14. NO REINTUBATION PER DISCUSSION WITH FAMILY AND PATIENT 6.16 7. Cardiomyopathy with ejection fraction of 20%. Cardiology following 8. Severe LE edema and anasarca 2/2 mass effect 9. Stage III sacral decubitus, continue wound care, repositioning as protocol 10. PICC associated DVT: no ATC given thrombocytopenia Subjective 24 Hr Interval Summary Subjective hx not possible: pt non-verbal Exam/Review of Systems Vital Signs Vitals Vital Signs Date Time Temp Pulse Resp B/P Pulse Ox O2 Delivery O2 Flow Rate FiO2 09/29/16 20:17 15.0 09/29/16 20:14 102 28 94 Non Rebreather Mask 09/29/16 20:00 96.6 95/52 09/27/16 06:01 53 Intake and Output 09/28/16 09/28/16 09/29/16 15:00 23:00 07:00 Intake Total 1632.93 ml 1138.422 ml 1501.23 ml Output Total 0 ml 300 ml 650 ml Balance 1632.93 ml 838.422 ml 851.23 ml Exam Constitutional: non-verbal, other (did not open eye to verbal stimuli) Head: atraumatic, normocephalic Respiratory: diminished breath sounds, other (tachycardic with regular rhythm) Gastrointestinal: soft Extremities: edema Skin: other (right thigh with large flaccid bulla) Results Result Diagram: 09/27/16 0530 09/29/16 1510 Results 24 hrs Laboratory Tests Test 09/29/16 00:27 09/29/16 01:51 09/29/16 06:19 09/29/16 06:30 Bedside Glucose 337 H 314 H Blood Gas Specimen Source Blood arterial Arterial Blood Date Drawn 09/29/2016 2:06:00 AM Arterial Blood pH (Temp corrected) 7.348 L Arterial Blood pCO2 (Temp correct) 38.4 Arterial Blood pO2 (Temp corrected) 147.8 H Arterial Blood HCO3 20.6 L Arterial Blood Base Excess -4.6 L Arterial Blood Oxygen Saturation 98.7 H Que Test ACCEPTAB Arterial Blood Gas Puncture Site Right Radial Arterial Blood Carboxyhemoglobin 0.3 Arterial Blood Methemoglobin 0.6 Blood Gas A-a O2 Differential 187.2 H Oxyhemoglobin Percent 97.8 Total Hemoglobin 8.2 L Blood Gas Temperature 37.0 Blood Gas Actual Respiration Rate 24 Blood Gas Modality MASK - SIMPLE FiO2 53.0 Blood Gas Notified Whom d ali trademark attorney Blood Gas Notified Time 09/29/2016 2:17:51 AM Sodium Level 126 L Potassium Level 5.2 H Chloride Level 100 Carbon Dioxide Level 17 L Anion Gap 14 Blood Urea Nitrogen 59 H Creatinine 0.96 Glucose Level 249 H Calcium Level 9.7 Phosphorus Level 4.8 Magnesium Level 1.7 Test 09/29/16 12:41 09/29/16 15:10 09/29/16 17:56 Bedside Glucose 258 H 260 H Sodium Level 124 L Potassium Level 4.4 Chloride Level 96 L Carbon Dioxide Level 22 Anion Gap 10 Blood Urea Nitrogen 60 H Creatinine 0.96 Glucose Level 230 H Calcium Level 9.8 Medications Medications Current Medications Acetaminophen (Tylenol Tab) 650 mg Q6H PRN PO PAIN LEVEL 1-3 OR FEVER; Start at 18:30 Morphine Sulfate (morphine) 2 mg Q4H PRN IV SEVERE PAIN LEVEL 7-10 Last administered on 09/27/16t 13:16; Admin Dose 2 MG; Start 09/05/16 at 18:30 Docusate Sodium (Colace) 100 mg Q12H PRN PO CONSTIPATION; Start 09/05/16 at 18: 30 Magnesium Hydroxide (Milk Of Mag) 30 ml DAILY PRN PO CONSTIPATION; Start at 18:30 Sodium Biphosphate/ Sodium Phosphate (Fleet Enema) 133 ml DAILY PRN [place] CONSTIPATION; Start 09/05/16 at 18:30 Hydralazine HCl (Apresoline) 10 mg Q6H PRN IV ELEVATED BLOOD PRESSURE; Start at 18:30 Nitroglycerin (Nitroglycerin (Sl Tab) 0.4 Mg) 1 tab Q5M PRN SL ANGINA; Start at 18:30 Miscellaneous Information 1 ea NOTE XX ; Start 09/05/16 at 19:00 Glucose (Glutose) 15 gm Q15M PRN PO DECREASED GLUCOSE; Start 09/05/16 at 19:00 Glucose (Glutose) 22.5 gm Q15M PRN PO DECREASED GLUCOSE; Start 09/05/16 at 19: 00 Dextrose (D50w Syringe) 25 ml Q15M PRN IV DECREASED GLUCOSE; Start 09/05/16 at 19:00 Dextrose (D50w Syringe) 50 ml Q15M PRN IV DECREASED GLUCOSE; Start 09/05/16 at 19:00 Glucagon (Glucagen) 1 mg Q15M PRN IM DECREASED GLUCOSE; Start 09/05/16 at 19:00 Glucose 15 gm 15 gm Q15M PRN BUCCAL DECREASED GLUCOSE; Start 09/05/16 at 19:00 Ondansetron HCl/ Sodium Chloride (Zofran Inj/NS) 54 ml @ 216 mls/hr Q6H PRN IV NAUSEA AND/OR VOMITING Last administered on 09/07/16 17:27; Admin Dose 216 MLS/HR; Start 09/06/16 at 10:30 Pantoprazole 40 mg 40 mg BID@06,18 IV Last administered on 09/29/16 17:54; Admin Dose 40 MG; Start 09/08/16 at 18:00 Fat Emulsion Intravenous (Liposyn Ii 20%) 500 ml @ 20.833 mls/ hr Q24H IV Last administered on 09/29/16 15:04; Admin Dose 20.833 MLS/HR; Start 09/11/16 at 16:00 Hydrocortisone (Solu-Cortef) 50 mg Q8 IV Last administered on 09/29/16 14:30; Admin Dose 50 MG; Start 09/13/16 at 14:00 Lorazepam (Ativan) 1 mg Q4 PRN IV ANXIETY Last administered on 09/20/16 05:56 ; Admin Dose 1 MG; Start 09/14/16 at 06:30 Insulin Aspart (Novolog Insulin Pen) NOVOLOG *MILD* ALGORI... Q6 SC Last administered on 09/29/16 17:57; Admin Dose 3 UNIT; Start 09/16/16 at 00:00 Collagenase 1 applic 1 applic DAILY TOP Last administered on 09/29/16 08:12; Admin Dose 1 APPLIC; Start 09/17/16 at 09:00 Total Parenteral Nutrition (Tpn) 1,000 ml @ 40 mls/hr Q24H IV Last administered on 09/29/16 17:21; Admin Dose 40 MLS/HR; Start 09/19/16 at 16:00 Furosemide (Lasix) 20 mg DAILY IV Last administered on 09/28/16 09:33; Admin Dose 20 MG; Start 09/23/16 at 09:00; Status Future Hold Enalaprilat 0.625 mg 0.625 mg Q8 IV Last administered on 09/25/16 13:32; Admin Dose 0.625 MG; Start 09/24/16 at 08:09 Meropenem 100 ml @ 200 mls/hr Q8 IVPB Last administered on 09/29/16 14:30; Admin Dose 200 MLS/HR; Start 09/26/16 at 14:00 Fluconazole/ Sodium Chloride 50 ml @ 50 mls/hr Q24H IVPB Last administered on 12:37; Admin Dose 50 MLS/HR; Start 09/26/16 at 12:00 Norepinephrine 32 mg/Dextrose 500 ml @ 0 mls/hr TITRATE IV Last administered on 09/29/16 19:21; Admin Dose 5.62 MLS/HR; Start 09/26/16 at 14:30 Vasopressin 60 unit/Dextrose 60 ml @ 1.2 mls/hr Q12H IV Last administered on 19:39; Admin Dose 2.4 MLS/HR; Start 09/26/16 at 14:30 Vancomycin HCl 750 mg/Sodium Chloride 150 ml @ 75 mls/hr Q36H IVPB Last administered on 09/29/16 17:54; Admin Dose 75 MLS/HR; Start 09/29/16 at 18:00 Phenylephrine HCl 160 mg/Dextrose 500 ml @ 18.75 mls/ hr TITRATE IV Last administered on 09/29/16 19:22; Admin Dose 56.25 MLS/HR; Start 09/29/16 at 01: 30 Albumin Human (Albumin Human 25%) 50 ml @ 100 mls/hr Q8H IV Last administered on 09/29/16 15:05; Admin Dose 100 MLS/HR; Start 09/29/16 at 08:00; Stop at 08:29 KIMBERLY CHACON MD Sep 29, 2016 21:11
[2016-09-30] VITALS (13 sets, daily range): BP systolic 0–88; BP diastolic 0–54; PULSE 0–108; RESP 0–37
[2016-09-30] MEDS: INSULIN ASPART [NOVOLOG] 3 ML PEN SC SCH (00:38)
[2016-09-30] MEDS: ALBUMIN HUMAN 25% 50 ML IV SCH (00:48)
[2016-09-30] MEDS: ALBUTEROL/IPRATROPIUM (NEB) 3 ML AMP HHN SCH (01:21)
[2016-09-30] MEDS ORDERED: DOPamine 1,600 MG in DEXTROSE 5% 210 ML IV SCH (01:30)
[2016-09-30] MEDS ORDERED: DOPamine-D5W 1.6 MG/ML 250 ML ONE (01:42)
[2016-09-30] MEDS ORDERED: DOPamine-D5W 1.6 MG/ML 250 ML IV SCH (02:00)
== END 2016-09-30 05:00 | disposition expired | DRG 870 ==
LOC: E/R 14:10 → ICU 16:23 → TEL 09-25 20:16 → ICU 09-26 11:15
PROVIDERS: ADMIT Hospitalist; ATTEND Hospitalist
PROC: 30233N1 Transfusion of Nonautologous Red Blood Cells into Peripheral Vein, Percutaneous Approach (ICD-10-PCS; 2016-09-05)
PROC: 06HM33Z Insertion of Infusion Device into Right Femoral Vein, Percutaneous Approach (ICD-10-PCS; 2016-09-08)
PROC: 0BH17EZ Insertion of Endotracheal Airway into Trachea, Via Natural or Artificial Opening (ICD-10-PCS; 2016-09-08)
PROC: 0DBM8ZX Excision of Descending Colon, Via Natural or Artificial Opening Endoscopic, Diagnostic (ICD-10-PCS; 2016-09-08)
PROC: 5A1955Z Respiratory Ventilation, Greater than 96 Consecutive Hours (ICD-10-PCS; principal; 2016-09-08 12:00)
PROC: 02HV33Z Insertion of Infusion Device into Superior Vena Cava, Percutaneous Approach (ICD-10-PCS; 2016-09-11)
DX: A41.9 Sepsis, unspecified organism (principal); J96.01 Acute respiratory failure with hypoxia; I21.4 Non-ST elevation (NSTEMI) myocardial infarction; K65.0 Generalized (acute) peritonitis; R65.21 Severe sepsis with septic shock; R57.0 Cardiogenic shock; K56.69 Other intestinal obstruction; I50.23 Acute on chronic systolic (congestive) heart failure; E46 Unspecified protein-calorie malnutrition; C78.5 Secondary malignant neoplasm of large intestine and rectum; E87.2 Acidosis; K91.71 Accidental puncture and laceration of a digestive system organ or structure during a digestive system procedure; C79.31 Secondary malignant neoplasm of brain; I42.9 Cardiomyopathy, unspecified; K56.7 Ileus, unspecified; K63.3 Ulcer of intestine; J98.11 Atelectasis; L89.303 Pressure ulcer of unspecified buttock, stage 3; T80.818A Extravasation of other vesicant agent, initial encounter; N39.0 Urinary tract infection, site not specified; E87.1 Hypo-osmolality and hyponatremia; C79.72 Secondary malignant neoplasm of left adrenal gland; N17.9 Acute kidney failure, unspecified; I82.622 Acute embolism and thrombosis of deep veins of left upper extremity; K62.5 Hemorrhage of anus and rectum; E86.0 Dehydration; E87.6 Hypokalemia; Z85.41 Personal history of malignant neoplasm of cervix uteri; N28.9 Disorder of kidney and ureter, unspecified; Z93.6 Other artificial openings of urinary tract status; R11.2 Nausea with vomiting, unspecified; R19.7 Diarrhea, unspecified; R14.0 Abdominal distension (gaseous); K76.0 Fatty (change of) liver, not elsewhere classified; L89.302 Pressure ulcer of unspecified buttock, stage 2; L89.212 Pressure ulcer of right hip, stage 2; Z90.5 Acquired absence of kidney; D69.6 Thrombocytopenia, unspecified; T68.XXXA Hypothermia, initial encounter; E83.42 Hypomagnesemia; D63.0 Anemia in neoplastic disease; D50.0 Iron deficiency anemia secondary to blood loss (chronic); Z68.35 Body mass index [BMI] 35.0-35.9, adult; R13.10 Dysphagia, unspecified
CPT/HCPCS: 31500; 36430; 36569; 36600; 71010; 74000; 74177; 74250; 76775; 76937; 80048; 80053; 80061; 80069; 80162; 80202; 81001; 81003; 82043; 82270; 82330; 82550; 82553; 82565; 82803; 82962; 83010; 83036; 83605; 83735; 83880; 83930; 83935; 83970; 84100; 84155; 84300; 84439; 84443; 84484; 84520; 85025; 85610; 85730; 86850; 86880; 86885; 86900; 86901; 86920; 87040; 87081; 87086; 88305; 93005; 93306; 93970; 93971; 94002; 94003; 94640; 94664; 94770; 96374; 96375; J1940; C1751; C1769; C9113; J1250; J1265; J1450; J1644; J1650; J1720; J1815; J2001; J2060; J2185; J2250; J2270; J2310; J2370; J2405; J2543; J2765; J3010; J3250; J3370; J3475; J3480; J7030; J7040; J7050; J7060; J7070; J7120; J7999; P9016; P9047; Q9967